=== PATIENT | female | born 2000 | race Caucasian/White ===

== ENCOUNTER 2023-05-31 13:35 | Emergency (ER) | payer OTHER, SELFPAY ==
[2023-05-31 13:40] VITALS: BP 116/67; PULSE 55; RESP 20; O2SAT 100; BMI 30.9
[2023-05-31] MEDS: 0.9 % SODIUM CHLORIDE 1,000 ML 999 ML IV (14:09)
[2023-05-31] MEDS: ONDANSETRON PF 4 MG/2 ML VIAL IV (14:09)
[2023-05-31] MEDS: HALOPERIDOL LACTATE 5 MG/ML VIAL IV (14:09)
[2023-05-31 14:15] LABS: Basophils Percent Auto 0.2 % (0.2-2.0); Eosinophils Percent Auto 0.1 % (0.9-7.0); Hematocrit 42.5 % (36.0-48.0); Hemoglobin 14.1 g/dL (12.0-16.0); Immature Granulocytes Abs Auto 0.04 10^3/uL (0.00-0.03); Immature Granulocytes Pct Auto 0.2 % (0.0-0.5); Lymphocytes Absolute Auto 0.6 10^3/uL (1.2-3.8); Lymphocytes Percent Auto 3.5 % (20.5-60.0); Mean Corpuscular HGB Conc 33.2 g/dL (29.9-35.2); Mean Corpuscular Hemoglobin 29.9 pg (26.7-34.0); Mean Platelet Volume 11.1 fL (9.5-13.5); Monocytes Absolute Auto 0.7 10^3/uL (0.3-0.8); Monocytes Percent Auto 4.2 % (1.7-12.0); Neutrophils Absolute Auto 14.8 10^3/uL (1.4-6.5); Neutrophils Percent Auto 91.8 % (43.0-75.0); Platelet Count 242 10^3/uL (150-450); Red Blood Count 4.72 10^6/uL (4.20-5.40); Red Cell Distribution Width 11.9 % (11.0-15.0); White Blood Count 16.1 10^3/uL (4.0-11.0)
--- NOTE | 2023-05-31 14:25 | ED_ITS ---
HPI - General Adult General Chief complaint: Nausea/Vomiting/Diarrhea Stated complaint: DIZZINESS/NAUSEA/VOMITING/CHEST PAIN Time Seen by Provider: 05/31/23 13:43 Source: patient Mode of arrival: Wheelchair Limitations: no limitations History of Present Illness HPI narrative: Patient complains of epigastric pain with nausea and vomiting for the last 3 days. She is unable to keep anything down despite trying to take sips of clear liquids at home. No urinary symptoms and no flank pain, No diarrhea. Patient denied but her LMP was about a month ago. Related Data Previous Rx's Medication Instructions Recorded ondansetron 4 mg disintegrating 4 mg PO Q6H PRN nausea and 05/31/23 tablet vomiting #20 tabs Allergies Allergy/AdvReac Type Severity Reaction Status Date / Time ibuprofen [From Motrin] AdvReac Severe Vomiting Verified 05/31/23 13:45 PFSH PFSH Social History Smoking status: Never smoker Exam Narrative Exam Narrative: Nurses notes and vital signs reviewed and patient is not hypoxic. afebrile General: Well-appearing and in no apparent distress. Skin: Warm, dry, no pallor noted. No rash to abdomen or flank. Eye: Pupils are equal, round and EOMI. No scleral icterus. Ears, Nose, Mouth, and Throat: Oral mucosa is dry Cardiovascular: Regular Rate and Rhythm without murmur, gallop or rub. Respiratory: No accessory muscle use or respiratory distress. Lungs are clear to auscultation, no wheezing, rales or rhonchi Back: No CVA tenderness Musculoskeletal: normal ROM GI: Abdomen is soft, non-distended. Normal bowel sounds. No masses appreciated. Epigastric tenderness to palpation. No RUQ, umbilical or lower abdominal tenderness to palpation. No rebound, guarding, or rigidity noted. Neurological: A&O x4. No cranial nerve dysfunction observed. No truncal ataxia. Moves all extremities. Sensation intact. Psychiatric: Cooperative and interactive. Normal mood and affect. Constitutional Vital Signs, click to edit/add: Last Vital Signs Pulse 63 05/31/23 14:48 Resp 18 05/31/23 14:48 BP 122/67 05/31/23 14:48 Pulse Ox 97 05/31/23 14:48 O2 Del Method Room Air 05/31/23 13:40 Course Vital Signs Vital signs: Vital Signs Pulse Rate 55 L 05/31/23 13:40 Respiratory Rate 20 10/07/23 13:40 Blood Pressure 116/67 05/31/23 13:40 Pulse Oximetry 100 05/31/23 13:40 Oxygen Delivery Method Room Air 05/31/23 13:40 Pulse Rate 63 05/31/23 14:48 Respiratory Rate 18 05/31/23 14:48 Blood Pressure 122/67 05/31/23 14:48 Pulse Oximetry 97 05/31/23 14:48 Oxygen Delivery Method Room Air 05/31/23 13:40 Medical Decision Making MDM Narrative Medical decision making narrative: Peripheral IV established and blood drawn and sent for testing. She was given NS IVF and IV Zofran. She was unable to initially give a urine sample. WBC 16k with left shift on CBC.m CMP notable for glucose 157 and total bilirubin 1.3. Direct bilirubin normal. Her qual HCG was positive and Quant was 9.0 UTox positive for THC/marijuana Patient felt better after ED treatment. We discussed all results including low Quant HCG - she will follow up with Dr Lopez. She was able to eat a popsicle and received tylenol for some pain she was having. She was discharged home with prescription for Zofran Lab Data Lab results reviewed: Yes I reviewed the patient's lab results Labs: Lab Results 05/31/23 05/31/23 Range/Units 14:08 14:45 WBC 16.1 H (4.0-11.0) 10^3/uL RBC 4.72 (4.20-5.40) 10^6/uL Hgb 14.1 (12.0-16.0) g/dL Hct 42.5 (36.0-48.0) % MCV 90.0 (81.0-99.0) fL MCH 29.9 (26.7-34.0) pg MCHC 33.2 (29.9-35.2) g/dL RDW 11.9 (11.0-15.0) % Plt Count 242 (150-450) 10^3/uL MPV 11.1 (9.5-13.5) fL Neut % (Auto) 91.8 H (43.0-75.0) % Lymph % (Auto) 3.5 L (20.5-60.0) % [place] % (Auto) 4.2 (1.7-12.0) % Eos % (Auto) 0.1 L (0.9-7.0) % Baso % (Auto) 0.2 (0.2-2.0) % Neut # (Auto) 14.8 H (1.4-6.5) 10^3/uL Lymph # (Auto) 0.6 L (1.2-3.8) 10^3/uL [place] # (Auto) 0.7 (0.3-0.8) 10^3/uL Eos # (Auto) 0.0 (0.0-0.7) 10^3/uL Baso # (Auto) 0.0 (0.0-0.1) 10^3/uL Abs Immat Gran (auto) 0.04 H (0.00-0.03) 10^3/uL Imm/Tot Granulo (auto) 0.2 (0.0-0.5) % Sodium 140 (136-145) mmol/L Potassium 3.5 (3.5-5.1) mmol/L Chloride 102 (98-107) mmol/L Carbon Dioxide 22.7 (21.0-32.0) mmol/L Anion Gap 18.8 BUN 18.0 (7.0-18.0) mg/dL Creatinine 0.92 (0.55-1.02) mg/dL Est GFR ( Amer) >60 (>=60) Est GFR (Non-Af Amer) >60 (>=60) BUN/Creatinine Ratio 19.6 Glucose 157 H (74-106) mg/dL Calcium 9.6 (8.5-10.1) mg/dL Total Bilirubin 1.3 H (0.2-1.0) mg/dL Direct Bilirubin 0.2 (0.0-0.2) mg/dL AST 15 (15-37) U/L ALT 24 (14-59) U/L Alkaline Phosphatase 47 (46-116) U/L Total Protein 7.9 (6.4-8.2) g/dL Albumin 4.2 (3.4-5.0) g/dL Globulin 3.7 g/dL Albumin/Globulin Ratio 1.1 Lipase 11.0 L (16.0-77.0) U/L Serum HCG, Qual Positive A (NEGATIVE) HCG, Quant 9 mIU/mL Urine Color Yellow (YELLOW) Urine Clarity Clear (CLEAR) Urine pH 7.5 (5.0-9.0) Ur Specific [place] 1.020 (1.005-1.025) Urine Protein 30 A (NEG/TRACE) mg/dL Urine Glucose (UA) Negative (NEGATIVE) mg/dL Urine Ketones >=80 A (NEGATIVE) mg/dL Urine Occult Blood Negative (NEGATIVE) Urine Nitrite Negative (NEGATIVE) Urine Bilirubin Small A (NEGATIVE) Urine Urobilinogen 0.2 (0.2-1.0) EU/dL Ur Leukocyte Esterase Trace A (NEGATIVE) Urine RBC 0-2 (0-2) #/HPF Urine WBC 0-2 A (NONE SEEN) #/HPF Ur Squamous Epith Cells Moderate A (NONE/RARE) #/LPF Urine Crystals None seen (None Seen) #/HPF Urine Bacteria Small A (NONE SEEN) #/HPF Urine Casts None seen (NONE SEEN) #/LPF Urine Mucus Trace A (NONE SEEN) Ur Culture Indicated? Yes Urine Opiates Screen Negative (NEGATIVE) Ur Buprenorphine Scrn Negative (NEGATIVE) Ur Oxycodone Screen Negative (NEGATIVE) Urine Methadone Screen Negative (NEGATIVE) Ur Propoxyphene Screen Negative (NEGATIVE) Ur Barbiturates Screen Negative (NEGATIVE) U Tricyclic Antidepress Negative (NEGATIVE) Ur Phencyclidine Scrn Negative (NEGATIVE) Ur Amphetamines Screen Negative (NEGATIVE) U Methamphetamines Scrn Negative (NEGATIVE) U Benzodiazepines Scrn Negative (NEGATIVE) Urine Cocaine Screen Negative (NEGATIVE) U Cannabinoids Screen Positive A (NEGATIVE) Discharge Plan Discharge Chief Complaint: Nausea/Vomiting/Diarrhea Clinical Impression: , Tetrahydrocannabinol (THC) use disorder, mild, abuse, Nausea & vomiting Patient Disposition: Home, Self-Care Time of Disposition Decision: 15:43 Prescriptions / Home Meds: New ondansetron 4 mg tablet,disintegrating 4 mg PO Q6H PRN (Reason: nausea and vomiting) Qty: 20 0RF Instructions: (ED), Acute Nausea and Vomiting (ED), Cannabis Use Disorder (ED) Stand Alone Forms: Portal Instructions Referrals: ARIANE HEDRICK [Primary Care Provider] - 1 week
[2023-05-31 14:29] LABS: Alanine Aminotransferase 24 U/L (14-59); Albumin Globulin Ratio 1.1; Albumin Level 4.2 g/dL (3.4-5.0); Alkaline Phosphatase 47 U/L (46-116); Anion Gap 18.8; Aspartate Amino Transferase 15 U/L (15-37); BUN Creatinine Ratio 19.6; Bilirubin Total 1.3 mg/dL (0.2-1.0); Calcium 9.6 mg/dL (8.5-10.1); Carbon Dioxide 22.7 mmol/L (21.0-32.0); Chloride 102 mmol/L (98-107); Estimated GFR (African America >60 (>=60); Estimated GFR (Non-African Ame >60 (>=60); Globulin 3.7 g/dL; Glucose 157 mg/dL (74-106); Potassium 3.5 mmol/L (3.5-5.1); Sodium 140 mmol/L (136-145); Total Protein 7.9 g/dL (6.4-8.2)
[2023-05-31 14:38] LABS: HCG Qualitative POSITIVE (NEGATIVE)
[2023-05-31 14:48] VITALS: BP 122/67; PULSE 63; RESP 18; O2SAT 97
[2023-05-31 14:55] LABS: HCG Quantitative 9 mIU/mL
[2023-05-31 15:08] LABS: Bilirubin Urine SMALL (NEGATIVE); Blood Urine NEGATIVE (NEGATIVE); Clarity Urine CLEAR (CLEAR); Color Urine YELLOW (YELLOW); Glucose Urine UA NEGATIVE (NEGATIVE); Ketones Urine >=80 mg/dL (NEGATIVE); Leukocyte Esterase Urine TRACE (NEGATIVE); Nitrite Urine NEGATIVE (NEGATIVE); Protein Urine 30 mg/dL (NEG/TRACE); Urobilinogen Urine 0.2 EU/dL (0.2-1.0); pH Urine 7.5 (5.0-9.0)
[2023-05-31 15:16] LABS: Urine Microscopic Indicated YES
[2023-05-31 15:20] LABS: Bacteria Urine SMALL #/HPF (NONE SEEN); Mucus Urine TRACE (NONE SEEN); RBC Urine 0-2 #/HPF (0-2); WBC Urine 0-2 #/HPF (NONE SEEN)
[2023-05-31 15:21] LABS: Cast Seen? NONE SEEN #/LPF (NONE SEEN); Crystals Seen? None Seen #/HPF (None Seen); Squamous Epithelial Cell Urine MODERATE #/LPF (NONE/RARE); Urine Culture Indicated YES
[2023-05-31] MEDS: ACETAMINOPHEN 500 MG TABLET 1000 MG PO (15:33)
[2023-05-31 15:35] LABS: Cannabinoid Screen Urine POSITIVE (NEGATIVE)
[2023-05-31 15:35] LABS: Bilirubin Direct 0.2 mg/dL (0.0-0.2)
[2023-05-31 15:36] LABS: Amphetamine Screen Urine NEGATIVE (NEGATIVE); Barbiturates Screen Urine NEGATIVE (NEGATIVE); Benzodiazepines Screen Urine NEGATIVE (NEGATIVE); Buprenorphine Screen Urine NEGATIVE (NEGATIVE); Cocaine Screen Urine NEGATIVE (NEGATIVE); Methadone Screen Urine NEGATIVE (NEGATIVE); Methamphetamines Screen Urine NEGATIVE (NEGATIVE); Opiate Screen Urine NEGATIVE (NEGATIVE); Oxycodone Screen Urine NEGATIVE (NEGATIVE); Phencyclidine Screen Urine NEGATIVE (NEGATIVE); Tricyclic Antidepressant Urine NEGATIVE (NEGATIVE)
== END 2023-05-31 16:00 | disposition home or self-care (01) ==
PROVIDERS: Emergency Provider Emergency Medicine; PCP Nurse Practitioner Family
DX: O26.899 Other specified pregnancy related conditions, unspecified trimester (principal); R11.2 Nausea with vomiting, unspecified; Z3A.00 Weeks of gestation of pregnancy not specified; O99.320 Drug use complicating pregnancy, unspecified trimester; F12.10 Cannabis abuse, uncomplicated
CPT/HCPCS: 36415; 80053; 80307; 81001; 82248; 83690; 84702; 84703; 85025; 87086; 96361; 96374; 96375; 99285

== ENCOUNTER 2023-07-10 13:30 | Outpatient (OUT) | payer OTHER, SELFPAY ==
--- NOTE | 2023-07-10 13:35 | US_ITS ---
[address] [address] Patient Name: FLORENCIA NEELY MRN: [id number] date: 2000 Sex: F Assigned Patient Location: US Current Patient Location: US Accession/Order Number: [id number] Exam Date: 07/10/2023 13:36 Report Date: 07/10/2023 15:27 At the request of: BELKIS BRAND Procedure: US OB transvaginal EXAMINATION: US OB transvaginal HISTORY: MISSED MENSES COMPARISON: No relevant comparison available. FINDINGS: Paz intrauterine gestation Gestational sac: 4.0 cm, 9 weeks 2 days CRL: 2.3 cm, 9 weeks 0 days Yolk sac: 4.8 mm Heart rate: 161 Cervix: Closed, 5.1 cm The uterus is normal, anteverted, anteflexed The ovaries are normal in appearance Clinical age: 10 weeks 0 days Clinical AGATHA: 02/05/2024 Ultrasound age: 9 weeks 0 days Ultrasound AGATHA: 02/12/2024 US/US OB transvaginal IMPRESSION: Viable paz intrauterine gestation measuring 9 weeks 0 days Electronically authenticated by: LOUISE MOHAMUD Date: 07/10/2023 15:27
== END 2023-07-10 13:31 | disposition home or self-care (01) ==
LOC: US 13:31
PROVIDERS: PCP Nurse Practitioner Family; Visit Provider Obstetrics & Gynecology
DX: Z34.91 Encounter for supervision of normal pregnancy, unspecified, first trimester (principal); N92.6 Irregular menstruation, unspecified; Z3A.09 9 weeks gestation of pregnancy
CPT/HCPCS: 76817

== ENCOUNTER 2023-07-21 16:32 | Outpatient (OUT) | payer OTHER, SELFPAY ==
[2023-07-21 16:58] LABS: Basophils Percent Auto 0.3 % (0.2-2.0); Eosinophils Absolute Auto 0.1 10^3/uL (0.0-0.7); Eosinophils Percent Auto 0.8 % (0.9-7.0); Hematocrit 40.9 % (36.0-48.0); Hemoglobin 14.1 g/dL (12.0-16.0); Immature Granulocytes Abs Auto 0.05 10^3/uL (0.00-0.03); Immature Granulocytes Pct Auto 0.4 % (0.0-0.5); Lymphocytes Percent Auto 16.5 % (20.5-60.0); Mean Corpuscular HGB Conc 34.5 g/dL (29.9-35.2); Mean Corpuscular Hemoglobin 30.1 pg (26.7-34.0); Mean Corpuscular Volume 87.2 fL (81.0-99.0); Mean Platelet Volume 11.2 fL (9.5-13.5); Monocytes Absolute Auto 0.5 10^3/uL (0.3-0.8); Monocytes Percent Auto 4.5 % (1.7-12.0); Neutrophils Absolute Auto 9.2 10^3/uL (1.4-6.5); Neutrophils Percent Auto 77.5 % (43.0-75.0); Platelet Count 237 10^3/uL (150-450); Red Blood Count 4.69 10^6/uL (4.20-5.40); Red Cell Distribution Width 12.2 % (11.0-15.0); White Blood Count 11.9 10^3/uL (4.0-11.0)
[2023-07-21 17:40] LABS: Estimated Average Glucose 97 mg/dL
[2023-07-21 17:54] LABS: Thyroid Stimulating Hormone 1.251 uIU/mL (0.358-3.740)
[2023-07-23 06:09] LABS: Rubella Antibodies, IgG 7.39 index (Immune >0.99)
[2023-07-23 06:44] LABS: BOX Test Sent Out Y
[2023-07-23 07:08] LABS: HBsAg Screen Negative (Negative); HIV Ab/p24 Ag Screen Non Reactive (Non Reactive)
[2023-07-23 08:12] LABS: HCV Ab Non Reactive (Non Reactive)
[2023-07-23 13:09] LABS: Rapid Plasma Reagin, Quant Non Reactive titer (NonRea<1:1)
== END 2023-07-21 16:33 | disposition home or self-care (01) ==
LOC: LAB 16:34
PROVIDERS: PCP Nurse Practitioner Family; Visit Provider Obstetrics & Gynecology
DX: N92.6 Irregular menstruation, unspecified (principal); Z36.0 Encounter for antenatal screening for chromosomal anomalies
CPT/HCPCS: 36415; 83036; 84443; 85025; 86592; 86762; 86803; 86850; 86900; 86901; 87086; 87340; 87389

== ENCOUNTER 2023-09-22 21:51 | Outpatient (REF) | payer OTHER, SELFPAY ==
--- OUTSIDE RECORDS SUMMARY | 2023-09-22 21:55 | XMS_ITS | CCD ---
Author Name Unknown Address [id number] [place] [address] Organization [facility] Care Team Providers Care Broiler Supervisor Name Role Phone JOSE ., LITA Admitting Unavailable JOSE ., LITA Attending Unavailable RYLEY, ARIANE Primary Care Unavailable JOSE ., LITA Consulting Unavailable ARIANE HEDRICK Admitting Unavailable ARIANE HEDRICK Attending Unavailable RYLEY, ARIANE Primary Care Unavailable ARIANE HEDRICK Consulting Unavailable SUNDAY ., DR TAMAYO Admitting Unavailable SUNDAY ., DR TAMAYO Attending Unavailable RYLEY, ARIANE Primary Care Unavailable SUNDAY ., DR TAMAYO Consulting Unavailable RYLEY, ARIANE Primary Care Unavailable PAY ., DR NELSON Admitting Unavailable PAY ., DR NELSON Attending Unavailable PAY ., DR NELSON Consulting Unavailable NIRAJ BEACH Attending Unavailable SNUDAYBELKIS Attending Unavailable Allergies Allergy Classification Reported Allergen(s) Allergy Type Date of Onset Reaction(s) Facility (1 source) Ibuprofen Drug Allergy 01-15-2016 [facility] Repository Problems Active Problems Problem Classification Problem Date Documented Date Episodic/Chronic Administrative/social admission (4 sources) Encounter for other administrative examinations; Translations: [ENCOUNTER OTH ADMIN EXAMINATIONS] Onset: 10-30-2022 Episodic Headache; including migraine (4 sources) Headache; including migraine; Translations: [HEADACHE UNSPECIFIED] Onset: 06-21-2022 Unclassified (1 source) CONTACT W/AND (SUSP) EXPOS COVID-19; Translations: [CONTACT W/AND (SUSP) EXPOS COVID-19] Onset: 01-08-2022 Past or Other Problems Problem Classification Problem Date Documented Date Episodic/Chronic Abdominal pain (1 source) Unspecified abdominal pain; Translations: [UNSPECIFIED ABDOMINAL PAIN] Onset: 06-25-2022 Episodic Fluid and electrolyte disorders (1 source) Dehydration; Translations: [DEHYDRATION] Onset: 01-08-2022 Episodic Immunizations and screening for infectious disease (1 source) Encounter for screening for human papillomavirus (HPV); Translations: [ENC SCREENING HUMAN PAPILLOMAVIRUS] Onset: 04-09-2022 Episodic Nausea and vomiting (4 sources) Nausea with vomiting, unspecified; Translations: [NAUSEA WITH VOMITING UNSPECIFIED] Onset: 01-06-2022 Episodic Other screening for suspected conditions (not mental disorders or infectious disease) (4 sources) Encounter for screening for malignant neoplasm of cervix; Translations: [ENC SCREENING MALIG NEOPLASM CERV] Onset: 04-08-2022 Episodic Results Test Name Value Interpretation Reference Range Facility COMPLIANCE DRUG SCREENon PDF . [facility] Comment on above: Performed By: #### U RCX #### [facility] [address] [place] [address] Dr. Tisha Carr Summary FINAL [facility] Comment on above: Result Comment: TOXASSURE COMP DRUG ANALYSIS,UR Test Result Flag Units Drug Present not Declared for Prescription Verification Carboxy-THC 117 UNEXPECTED ng/mg creat Carboxy-THC is a metabolite of tetrahydrocannabinol (THC). Source of THC is most commonly herbal marijuana or marijuana-based products, but THC is also present in a scheduled prescription medication. Trace amounts of THC can be present in hemp and cannabidiol (CBD) products. This test is not intended to distinguish between utiqo-7-nvwratrrdirpxicowfuy, the predominant form of THC in most herbal or marijuana-based products, and djqbt-5-pvygrtgetgiscpryjwpj. Methylphenidate PRESENT UNEXPECTED Ritalinic Acid PRESENT UNEXPECTED Source of methylphenidate is a scheduled prescription medication. Ritalinic acid is an expected metabolite of methylphenidate. Diphenhydramine PRESENT UNEXPECTED Drug Absent but Declared for Prescription Verification Amphetamine Not Detected UNEXPECTED ng/mg creat Test Result Flag Units Ref Range Creatinine 209 mg/dL >=20 Declared Medications: The flagging and interpretation on this report are based on the following declared medications. Unexpected results may arise from inaccuracies in the declared medications. Note: The testing scope of this panel includes these medications: Amphetamine (Adderall) For clinical consultation, please call . Performed By: #### U RCX #### [facility] [address] [place] [id number] [address] Tisha Carr URIC ACID RAND URINEon 10-31 Uric Acid, Urine 67.3 mg/dL Normal Not Estab. [facility] Comment on above: Performed By: #### U RCX #### [facility] [address] [place] [address] Dr. Tisha Carr DRUG SCREEN RAPID (URINE)on 10-30-2022 AMP Negative Normal NEGATIVE [facility] Comment on above: Performed By: #### U RCX #### [facility] [address] [place] [address] Dr. Tisha Carr BAR Negative Normal NEGATIVE [facility] Comment on above: Performed By: #### U RCX #### [facility] [address] [place] [address] Dr. Tisha Carr BUP Negative Normal NEGATIVE [facility] Comment on above: Performed By: #### U RCX #### [facility] [address] [place] [address] Dr. Tisha Carr BZO Negative Normal NEGATIVE [facility] Comment on above: Performed By: #### U RCX #### [facility] [address] [place] [address] Dr. Tisha Carr SOCRATES Negative Normal NEGATIVE [facility] Comment on above: Performed By: #### U RCX #### [facility] [address] [place] [address] Dr. Tisha Carr CUT-OFFS SEE BELOW Normal [facility] Comment on above: Result Comment: AMP (Amphetamine): 500ng/mL, BAR (Barbituates): 200 ng/mL, BZO (Benzodiazepines): 150 ng/mL, BUP (Buprenorphine): 10 ng/mL, SOCRATES (Cocaine): 150 ng/mL, mAMP (Methamphetamine): 500 ng/mL, MTD (Methadone): 200 ng/mL, OPI (Opiates): 100 ng/mL, OXY (Oxycodone): 100 ng/mL, PCP (Phencyclidine): 25 ng/mL, PPX (Propoxyphene): 300 ng/mL, THC (Cannabinoids): 50 ng/mL, TCA (Trycyclic Antidepressants): 300 ng/mL Performed By: #### U RCX #### [facility] [address] [place] [address] Dr. Tisha Carr DRUG CUT HEADER DRUG CLASS TEST SYST EM CUT-OFF CONCENTRATIONS ARE FOLLOWS: Normal [facility] Comment on above: Performed By: #### U RCX #### [facility] [address] [place] [address] Dr. Tisha Carr mAMP Negative Normal NEGATIVE [facility] Comment on above: Performed By: #### U RCX #### [facility] [address] [place] [address] Dr. Tisha Carr MTD Negative Normal NEGATIVE [facility] Comment on above: Performed By: #### U RCX #### [facility] [address] [place] [address] Dr. Tisha Carr OPI Negative Normal NEGATIVE [facility] Comment on above: Performed By: #### U RCX #### [facility] [address] [place] [address] Dr. Tisha Carr OXY Negative Normal NEGATIVE [facility] Comment on above: Performed By: #### U RCX #### [facility] [address] [place] [address] Dr. Tisha Carr PCP Negative Normal NEGATIVE [facility] Comment on above: Performed By: #### U RCX #### [facility] [address] [place] [address] Dr. Tisha Carr PPX Negative Normal NEGATIVE [facility] Comment on above: Performed By: #### U RCX #### [facility] [address] [place] [address] Dr. Tisha Carr TCA Negative Normal NEGATIVE [facility] Comment on above: Performed By: #### U RCX #### [facility] [address] [place] [address] Dr. Tisha Carr THC Positive Abnormal NEGATIVE [facility] Comment on above: Performed By: #### U RCX #### [facility] [address] [place] [address] Dr. Tisha Carr CBC AUTO DIFFon 06-21-2022 BASO # 0.0 103/ul Normal 0.0-0.1 [facility] Comment on above: Performed By: #### U RCX #### [facility] [address] [place] [address] Dr. Tisha Carr Basophils/100 WBC (Bld) 0.2 % Normal 0.2-2.0 [facility] Comment on above: Performed By: #### U RCX #### [facility] [address] [place] [address] Dr. Tisha Carr EO # 0.0 103/ul Normal 0.0-0.7 [facility] Comment on above: Performed By: #### U RCX #### [facility] [address] [place] [address] Dr. Tisha Carr Eosinophils/100 WBC (Bld) 0.2 % Critically low 0.9-7.0 [facility] Comment on above: Performed By: #### U RCX #### [facility] [address] [place] [address] Dr. Tisha Carr Erythrocyte distribution width (RBC) [Ratio] 12.3 % Normal 11.0-15.0 [facility] Comment on above: Performed By: #### U RCX #### [facility] [address] [place] [address] Dr. Tisha Carr Hematocrit (Bld) [Volume fraction] 43.1 % Normal 36.0-48.0 [facility] Comment on above: Performed By: #### U RCX #### [facility] [address] [place] [address] Dr. Tisha Carr Hemoglobin (Bld) [Mass/Vol] 15.1 g/dL Normal 12.0-16.0 [facility] Comment on above: Performed By: #### U RCX #### [facility] [address] [place] [address] Dr. Tisha Carr IG # 0.06 10e3/ul Critically high 0.00-0.03 [facility] Comment on above: Performed By: #### U RCX #### [facility] [address] [place] [address] Dr. Tisha Carr IG % 0.5 % Normal 0.0-0.5 [facility] Comment on above: Performed By: #### U RCX #### [facility] [address] [place] [address] Dr. Tisha Carr LYMPH # 1.0 103/ul Critically low 1.2-3.8 [facility] Comment on above: Performed By: #### U RCX #### [facility] [address] [place] [address] Dr. Tisha Carr Lymphocytes/100 WBC (Bld) 8.2 % Critically low 20.5-60.0 [facility] Comment on above: Performed By: #### U RCX #### [facility] [address] [place] [address] Dr. Tisha Carr MANUAL DIFF REQ NO Normal [facility] Comment on above: Performed By: #### U RCX #### [facility] [address] [place] [address] Dr. Tisha Carr MCH (RBC) [Entitic mass] 30.3 pg Normal 26.7-34.0 [facility] Comment on above: Performed By: #### U RCX #### [facility] [address] [place] [address] Dr. Tisha Carr MCHC (RBC) [Mass/Vol] 35.0 g/dL Normal 29.9-35.2 [facility] Comment on above: Performed By: #### U RCX #### [facility] [address] [place] [address] Dr. Tisha Carr MCV (RBC) [Entitic vol] 86.4 fL Normal 81.0-99.0 [facility] Comment on above: Performed By: #### U RCX #### [facility] [address] [place] [address] Dr. Tisha Carr MONO # 0.8 103/ul Normal 0.3-0.8 [facility] Comment on above: Performed By: #### U RCX #### [facility] [address] [place] [address] Dr. Tisha Carr Monocytes/100 WBC (Bld) 6.0 % Normal 1.7-12.0 [facility] Comment on above: Performed By: #### U RCX #### [facility] [address] [place] [address] Dr. Tisha Carr NEUT # 10.8 103/ul Critically high 1.4-6.5 [facility] Comment on above: Performed By: #### U RCX #### [facility] [address] [place] [address] Dr. Tisha Carr Neutrophils/100 WBC (Bld) 84.9 % Critically high 43.0-75.0 [facility] Comment on above: Performed By: #### U RCX #### [facility] [address] [place] [address] Dr. Tisha Carr Platelet mean volume (Bld) [Entitic vol] 10.8 fL Normal 9.5-13.5 [facility] Comment on above: Performed By: #### U RCX #### [facility] [address] [place] [address] Dr. Tisha Carr PLT 237 103/ul Normal 150-450 [facility] Comment on above: Performed By: #### U RCX #### [facility] [address] [place] [address] Dr. Tisha Carr RBC 4.99 106/ul Normal 4.20-5.40 [facility] Comment on above: Performed By: #### U RCX #### [facility] [address] [place] [address] Dr. Tisha Carr WBC 12.7 103/ul Critically high 4.0-11.0 [facility] Comment on above: Performed By: #### U RCX #### [facility] [address] [place] [address] Dr. Tisha Carr CRPon 06-21-2022 CRP 10.0 mg/dL Critically high <=1.0 [facility] Comment on above: Performed By: #### C RP, CMP, LIPA #### [facility] [address] [place] [address] Dr. Tisha Carr ER URINE PROFILEon Bilirubin Ql (U) SMALL Abnormal NEGATIVE [facility] Comment on above: Performed By: #### E RUR, UMICRO, PREGU #### [facility] [address] [place] [address] Dr. Tisha Carr Clarity (U) CLEAR Normal CLEAR [facility] Comment on above: Performed By: #### E RUR, UMICRO, PREGU #### [facility] [address] [address] [address] Tisha Carr Color (U) YELLOW Normal YELLOW [facility] Comment on above: Performed By: #### E RUR, UMICRO, PREGU #### [facility] [address] [address] [address] Tisha Carr ERUREJI A micrscopic examina tion will be performed if indicated. Normal [facility] Comment on above: Performed By: #### E RUR, UMICRO, PREGU #### [facility] [address] [place] [address] Dr. Tisha Carr Glucose Ql (U) Negative Normal NEGATIVE [facility] Comment on above: Performed By: #### E RUR, UMICRO, PREGU #### [facility] [address] [address] [address] Tisha Carr Hemoglobin Ql (U) MODERATE Abnormal NEGATIVE [facility] Comment on above: Performed By: #### E RUR, UMICRO, PREGU #### [facility] [address] [address] [address] Tisha Carr Ketones Ql (U) 80 mg/dl Abnormal NEGATIVE [facility] Comment on above: Performed By: #### E RUR, UMICRO, PREGU #### [facility] [address] [address] [address] Tisha Carr LEUKOCYTES Negative Normal NEGATIVE [facility] Comment on above: Performed By: #### E RUR, UMICRO, PREGU #### [facility] [address] [address] [address] Tisha Carr Nitrite Ql (U) Negative Normal NEGATIVE [facility] Comment on above: Performed By: #### E RUR, UMICRO, PREGU #### [facility] [address] [place] [address] Dr. Tisha Carr pH (U) 6.0 [pH] Normal 5-9 [facility] Comment on above: Performed By: #### E RUR UMICRO, PREGU #### [facility] [address] [address] [address] Tisha Carr SPEC GRAVITY 1.025 Normal 1.005-<=1.025 [facility] Comment on above: Performed By: #### E RUR, UMICRO, PREGU #### [facility] [address] [place] [address] Dr. Tisha Carr UA PROTEIN TRACE Normal NEGATIVE/ TRACE [facility] Comment on above: Performed By: #### E RURLEIGHICELLE, PREGU #### [facility] [address] [place] [address] Dr. Tisha Carr UR MICRO IND INDICATED Normal [facility] Comment on above: Performed By: #### E RUR UMICRO, PREGU #### [facility] [address] [place] [address] Dr. Tisha Carr Urobilinogen Qn (U) 1.0 {Alma'U}/dL Normal 0.2 - 1.0 [facility] Comment on above: Performed By: #### YULY BRYANT, PREGU #### [facility] [address] [place] [address] Dr. Tisha Carr LACTATE/LACTIC ACIDon 2021 Lactate [Moles/Vol] 1.0 mmol/L Normal 0.4-1.9 [facility] Comment on above: Performed By: #### U RCX #### [facility] [address] [place] [address] Dr. Tisha Carr LIPASEon 06-21-2022 Lipase [Catalytic activity/Vol] 41.0 U/L Critically low 73.0-393.0 [facility] Comment on above: Performed By: #### C RP, CMP, LIPA #### [facility] [address] [place] [address] Dr. Tisha Carr URon 06-21-2022 , QUAL Negative Normal NEGATIVE [facility] Comment on above: Performed By: #### E RUR UMICRO, PREGU #### [facility] [address] [address] [address] Tisha Carr PROF 14(COMP METB)on 022 Albumin [Mass/Vol] 4.0 g/dL Normal 3.4-5.0 [facility] Comment on above: Performed By: #### C RP, CMP, LIPA #### [facility] [address] [address] [address] Tisha Carr Albumin/Globulin [Mass ratio] 1.0 {ratio} Normal [facility] Comment on above: Performed By: #### C RP, CMP, LIPA #### [facility] [address] [address] [address] Tisha Carr ALP [Catalytic activity/Vol] 74 U/L Normal 46-116 [facility] Comment on above: Performed By: #### C RP, CMP, LIPA #### [facility] [address] [address] [address] Tisha Carr ALT [Catalytic activity/Vol] 33 U/L Normal 14-59 [facility] Comment on above: Performed By: #### C RP, CMP, LIPA #### [facility] [address] [address] [address] Tisha Carr Anion gap [Moles/Vol] 15.8 mmol/L Normal [facility] Comment on above: Performed By: #### C RP, CMP, LIPA #### [facility] [address] [address] [address] Tisha Carr AST [Catalytic activity/Vol] 17 U/L Normal 15-37 [facility] Comment on above: Performed By: #### C RP, CMP, LIPA #### [facility] [address] [address] [address] Tisha Carr Bilirubin [Mass/Vol] 1.3 mg/dL Critically high 0.2-1.0 [facility] Comment on above: Performed By: #### C RP, CMP, LIPA #### [facility] [address] [address] [address] Tisha Carr Calcium [Mass/Vol] 9.2 mg/dL Normal 8.5-10.1 [facility] Comment on above: Performed By: #### C RP, CMP, LIPA #### [facility] [address] [place] [address] Dr. Tihsa Carr Chloride [Moles/Vol] 102 mmol/L Normal 98-107 [facility] Comment on above: Performed By: #### C RP, CMP, LIPA #### [facility] [address] [place] [address] Dr. Tisha Carr CO2 [Moles/Vol] 22.7 mmol/L Normal 21.0-32.0 [facility] Comment on above: Performed By: #### C RP, CMP, LIPA #### [facility] [address] [place] [address] Dr. Tisha Carr Creatinine [Mass/Vol] 0.70 mg/dL Normal 0.55-1.02 [facility] Comment on above: Performed By: #### C RP, CMP, LIPA #### [facility] [address] [place] [address] Dr. Tisha Carr EGFR-AF TRISTANIAN >60 Normal >=60 [facility] Comment on above: Performed By: #### C RP, CMP, LIPA #### [facility] [address] [place] [address] Dr. Tisha Carr EGFR-NON AF TRISTANIAN >60 Normal >=60 [facility] Comment on above: Performed By: #### C RP, CMP, LIPA #### [facility] [address] [place] [address] Dr. Tisha Carr Globulin (S) [Mass/Vol] 4.2 g/dL Normal [facility] Comment on above: Performed By: #### C RP, CMP, LIPA #### [facility] [address] [place] [address] Dr. Tisha Carr Glucose [Mass/Vol] 93 mg/dL Normal 74-106 [facility] Comment on above: Performed By: #### C RP, CMP, LIPA #### [facility] [address] [place] [address] Dr. Tisha Carr Potassium [Moles/Vol] 3.5 mmol/L Normal 3.5-5.1 [facility] Comment on above: Performed By: #### C RP, CMP, LIPA #### [facility] [address] [place] [address] Dr. Tisha Carr Protein [Mass/Vol] 8.2 g/dL Normal 6.4-8.2 [facility] Comment on above: Performed By: #### C RP, CMP, LIPA #### [facility] [address] [place] [address] Dr. Tisha Carr Sodium [Moles/Vol] 137 mmol/L Normal 136-145 [facility] Comment on above: Performed By: #### C RP, CMP, LIPA #### [facility] [address] [place] [address] Dr. Tisha Carr Urea nitrogen [Mass/Vol] 16.0 mg/dL Normal 7.0-18.0 [facility] Comment on above: Performed By: #### C RP, CMP, LIPA #### [facility] [address] [place] [address] Dr. Tisha Carr Urea nitrogen/Creatini ne [Mass ratio] 22.9 mg/mg Normal [facility] Comment on above: Performed By: #### C RP, CMP, LIPA #### [facility] [address] [place] [address] Dr. Tisha Carr URINE MICROSCOPIC ONLYon BACTERIA TRACE Abnormal NONE SEEN [facility] Comment on above: Performed By: #### YULY BRYANT, PREGU #### [facility] [address] [place] [address] Dr. Tisha Carr Bacteria identified Cx Nom (U) NOT INDICATED Normal [facility] Comment on above: Performed By: #### YULY BRYANT PREGU #### [facility] [address] [place] [address] Dr. Tisha Carr CAST NONE SEEN Normal NONE SEEN [facility] Comment on above: Performed By: #### YULY BRYANT, PREGU #### [facility] [address] [address] [address] Tisha Carr Crystals LM Nom (Urine sed) NONE SEEN Normal NONE SEEN [facility] Comment on above: Performed By: #### YULY BRYANT, PREGU #### [facility] [address] [address] [address] Tisha Carr Epithelial cells LM Ql (Urine sed) MODERATE Abnormal NONE SEEN /RARE [facility] Comment on above: Performed By: #### YULY BRYANT, PREGU #### [facility] [address] [address] [address] Tisha Carr MUCOUS MODERATE Abnormal NONE SEEN [facility] Comment on above: Performed By: #### YULY BRYANT, PREGU #### [facility] [address] [place] [address] Dr. Tisha Carr RBC 0-2 Normal 0-2 [facility] Comment on above: Performed By: #### YULY BRYANT, PREGU #### [facility] [address] [place] [address] Dr. Tisha Carr WBC 0-2 Abnormal NONE SEEN [facility] Comment on above: Performed By: #### YULY BRYANT, PREGU #### [facility] [address] [place] [address] Dr. Tisha Carr PAP ACOG PANEL 2: 21 to 29on 04-11-2022 . . Normal [facility] Comment on above: Performed By: #### U RCX #### [facility] [address] [place] [address] Dr. Tisha Carr Age Gdln ACOG Testing 21-29 Normal [facility] Comment on above: Performed By: #### U RCX #### [facility] [address] [place] [address] Dr. Tisha Carr DIAGNOSIS: Comment Normal [facility] Comment on above: Result Comment: NEGA TIVE FOR INTRAEPITHELIAL LESION OR MALIGNANCY. FUNGAL ORGANISMS MORPHOLOGICALLY CONSISTENT WITH SHREEE SPECIES ARE PRESENT. Performed By: #### U RCX #### [facility] [address] [place] [address] Dr. Tisha Carr Methodology: Comment [facility] Comment on above: Result Comment: This liquid based ThinPrep(R) pap test was screened with the use of an image guided system. Performed By: #### U RCX #### [facility] [address] [place] [address] Dr. Tisha Carr Note: Comment Normal [facility] Comment on above: Result Comment: The Pap smear is a screening test designed to aid in the detection of premalignant and malignant conditions of the uterine cervix. It is not a diagnostic procedure and should not be used as the sole means of detecting cervical cancer. Both false-positive and false-negative reports do occur. . Performed By: #### U RCX #### [facility] [address] [place] [address] Dr. Tisha Carr Performed by: Comment Normal [facility] Comment on above: Result Comment: Caleb Schaeffer, Reciprocating Drill Operator (ASCP) Performed By: #### U RCX #### [facility] [address] [place] [address] Dr. Tisha Carr Reflex Criteria: Comment [facility] Comment on above: Result Comment: The HPV DNA reflex criteria were not met with this specimen result therefore, no HPV testing was performed. . Performed By: #### U RCX #### [facility] [address] [place] [address] Dr. Tisha Carr Specimen adequacy: Comment [facility] Comment on above: Result Comment: Sati sfactory for evaluation. Endocervical and/or squamous metaplastic cells (endocervical component) are present. Performed By: #### U RCX #### [facility] [address] [place] [address] Dr. Tisha Carr CULTURE URINEon 01-08-2022 CULTURE URINE Isolate 1 Escherichia coli 40,000 cfu/mL of ORGANISM 1 Escherichia coli ANTIBIOTIC M.I.C RX STATUS Ampicillin >=32 R F Ampicillin/Sulbactam >=32 R F Piperacillin/Tazobactam <=4 S F Cefazolin <=4 S F Ceftazidime <=1 S F Ceftriaxone <=1 S F Ertapenem <=0.5 S F Imipenem <=0.25 S F Amikacin <=2 S F Gentamicin <=1 S F Tobramycin <=1 S F Ciprofloxacin <=0.25 S F Levofloxacin <=0.12 S F Nitrofurantoin <=16 S F Trimethoprim/Sulfamethoxa zole <=20 S F Normal [facility] Comment on above: Performed By: #### U RCX #### [facility] [address] [place] [address] Dr. Tisha Carr Covid-19 PCR ([facility])on 12-23 SARS-CoV-2 (COVID-19) RNA OC+probe Ql (Unsp spec) Not detected Normal NOT DETECTED [facility] Comment on above: Result Comment: This test is not yet approved or cleared by the [place] FDA. When there are no FDA-approved or cleared tests available, and other criteria are met, FDA can make tests available under an emergency access mechanism called an Emergency Use Authorization (EUA). The EUA for this test is supported by the Supervisor Offset Plate Preparation of Health and Human Service's (HHS's) declaration that circumstances exist to justify the emergency use of in vitro diagnostics for the detection and/or diagnosis of the virus that causes COVID-19. This EUA will remain in effect (meaning this test can be used) for the duration of the COVID-19 declaration justifying emergency of IVDs, unless it is terminated or revoked by FDA (after which the test may no longer be used). When diagnostic testing is negative, the possibility of a false negative should be considered in the context of a patient's recent exposures and the presence of clinical signs and symptoms consistent with SARS-CoV-2. Performed By: #### C VDTBH #### [facility] [address], [place] [address] Dr. Tisha Carr ER URINE PROFILEon 2 Bilirubin Ql (U) MODERATE Abnormal NEGATIVE [facility] Comment on above: Performed By: #### E YULY CUMMINS PREGU #### [facility] [address], [place] [address] Dr. Tisha Carr Clarity (U) CLEAR Normal CLEAR [facility] Comment on above: Performed By: #### E RUR, UMICRO, PREGU #### [facility] [address] [place] [address] [address] Tisha Carr Color (U) DK. YELLOW Normal YELLOW [facility] Comment on above: Performed By: #### E RUR, UMICRO, PREGU #### [facility] [address] [address] [address] Tisha Carr ERUREJI A micrscopic examina tion will be performed if indicated. Normal [facility] Comment on above: Performed By: #### E RUR, UMICRO, PREGU #### [facility] [address] [address] [address] Tisha Carr Glucose Ql (U) Negative Normal NEGATIVE [facility] Comment on above: Performed By: #### E RUR, UMICRO, PREGU #### [facility] [address] [address] [address] Tisha Carr Hemoglobin Ql (U) Negative Normal NEGATIVE [facility] Comment on above: Performed By: #### E RUR, UMICRO, PREGU #### [facility] [address] [address] [address] Tisha Carr Ketones Ql (U) >=80 Abnormal NEGATIVE [facility] Comment on above: Performed By: #### E RUR, UMICRO, PREGU #### [facility] [address] [address] [address] Tisha Carr LEUKOCYTES TRACE Abnormal NEGATIVE [facility] Comment on above: Performed By: #### E RUR, UMICRO, PREGU #### [facility] [address] [address] [address] Tisha Carr Nitrite Ql (U) Negative Normal NEGATIVE [facility] Comment on above: Performed By: #### E RUR, UMICRO, PREGU #### [facility] [address] [address] [address] Tisha Carr pH (U) 6.0 [pH] Normal 5-9 [facility] Comment on above: Performed By: #### E RUR, UMICRO, PREGU #### [facility] [address] [place] [address] Dr. Tisha Carr Protein (U) [Mass/Vol] 100 mg/dL Abnormal NEGATIVE/ TRACE [facility] Comment on above: Performed By: #### E YULY CUMMINS, PREGU #### [facility] [address] [place] [address] Dr. Tisha Carr SPEC GRAVITY 1.025 Normal 1.005-<=1.025 [facility] Comment on above: Performed By: #### YULY BRYANT, PREGU #### [facility] [address] [place] [address] Dr. Tisha Carr UR MICRO IND INDICATED Normal [facility] Comment on above: Performed By: #### YULY BRYANT, PREGU #### [facility] [address] [place] [address] Dr. Tisha Carr Urobilinogen Qn (U) 1.0 {Alma'U}/dL Normal 0.2 - 1.0 [facility] Comment on above: Performed By: #### YULY BRYANT PREGU #### [facility] [address] [place] [address] Dr. Tisha Carr INFLUENZA A AND B AGon 01-06 INFLUANEGH SEE BELOW Normal [facility] Comment on above: Result Comment: Nega tive for Flu A protein angiten. Infection due to Flu A cannot be ruled out. Flu A angiten in the sample may be below the detection limit of the test. Performed By: #### U RCX #### [facility] [address] [place] [address] Dr. Tisha Carr INFLUBNEGH SEE BELOW Normal [facility] Comment on above: Result Comment: Nega tive for Flu B protein antigen. Infection due to Flu B cannot be ruled out. Flu B antigen in the sample may be below the detection limit of the test. Performed By: #### U RCX #### [facility] [address] [place] [address] Dr. Tisha Carr INFLUENZA A AG Negative Normal NEGATIVE SEE COMMENT [facility] Comment on above: Performed By: #### U RCX #### [facility] [address] [address] [address] Tisha Carr INFLUENZA B AG Negative Normal NEGATIVE SEE COMMENT [facility] Comment on above: Performed By: #### U RCX #### [facility] [address] [address] [address] Tisha Carr INTERNAL CONTROLS Within Normal Limits Normal Wi thin Normal Limits [facility] Comment on above: Performed By: #### U RCX #### [facility] [address] [address] [address] Tisha Carr URon 01-06-2022 , QUAL Negative Normal NEGATIVE [facility] Comment on above: Performed By: #### E RUR, UMICRO, PREGU #### [facility] [address] [address] [address] Tisha Carr URINE MICROSCOPIC ONLYon BACTERIA SMALL Abnormal NONE SEEN [facility] Comment on above: Performed By: #### U RCX #### [facility] [address] [address] [address] Tisha Carr Bacteria identified Cx Nom (U) INDICATED Normal [facility] Comment on above: Performed By: #### U RCX #### [facility] [address] [address] [address] Tisha Carr CAST NONE SEEN Normal NONE SEEN [facility] Comment on above: Performed By: #### U RCX #### [facility] [address] [address] [address] Tisha Carr Crystals LM Nom (Urine sed) NONE SEEN Normal NONE SEEN [facility] Comment on above: Performed By: #### U RCX #### [facility] [address] [address] [address] Tisha Carr Epithelial cells LM Ql (Urine sed) MANY Abnormal NONE SEEN /RARE [facility] Comment on above: Performed By: #### U RCX #### [facility] [address] [address] [address] Tisha Carr MUCOUS LARGE Abnormal NONE SEEN [facility] Comment on above: Performed By: #### U RCX #### [facility] [address], [place] [address] Dr. Tisha Carr RBC NONE SEEN Abnormal 0-2 [facility] Comment on above: Performed By: #### U RCX #### [facility] [address], [place] [address] Dr. Tisha Carr WBC 5-10 Abnormal NONE SEEN [facility] Comment on above: Performed By: #### U RCX #### [facility] [address], [place] [address] Dr. Tisha Carr Encounters Encounter Date Encounter Type Care Provider Facility Start: 08-21-2023 End: 08-21-2023 ambulatory NIRAJ BEACH Not Available Start: 07-23-2023 End: 07-23-2023 ambulatory BELKIS BRAND Not Available Start: 07-10-2023 End: 07-10-2023 ambulatory NIRAJ BEACH Not Available Start: 10-30-2022 End: 10-31-2022 ambulatory ARIANE HEDRICK Facility:[facility] Start: 06-21-2022 End: 06-21-2022 ambulatory ARIANE HEDRICK Facility:[facility] Start: 04-08-2022 End: 04-08-[address] BELKIS BRAND . Facility:[facility] Start: 01-06-2022 End: 01-06-2022 ambulatory LITA GARCIA . Facility:[facility] Payers Date Payer Category Payer Unknown [id number] [id number] [id number] 2000 Unknown [id number] [id number] [id number] 2000 Unknown [id number] 2.16.84 [id number] 2000 Unknown [id number] 2.16.84 [id number] 2000 Unknown [id number] 2000 Unknown [id number] 2000 Unknown [id number] 1959 Unknown [id number] Summary Purpose Family History No Family History Records FoundNo Family History Records Found Advance Directives No Advanced Directives Records FoundNo Advanced Directives Records Found Additional Source Comments INFORMATION SOURCE (unrecogn ized section and content) DATE CREATED AUTHOR 11/07/2022 [facility] DATE CREATED AUTHOR AUTHOR'S ORGANIZ ATION 08/23/2023 [facility] EPIC FOR RECORDS PERTAINING TO PATIENTS WHO ARE OR HAVE BEEN ENROLLED IN A CHEMICAL DEPENDENCY/SUBSTANCEABUSE PROGRAM, SOME INFORMATION MAY BE OMITTED. This clinical summary was aggregated from multiple sources. Caution should be exercised in using it in the provision of clinical care. This summary normalizes information from multiple sources, and as a consequence, information in this document may materially change the coding, format and clinical context of patient data. In addition, data may be omitted in some cases. CLINICAL DECISIONS SHOULD BE BASED ON THE PRIMARY CLINICAL RECORDS. [employer] [employer] provides no warranty or guarantee of the accuracy or completeness of information in this document.
[2023-09-25 14:10] LABS: Age Gdln ACOG Testing Note (.); IGP, rfx Aptima HPV ASCU Note (.)
== END 2023-09-22 21:52 | disposition home or self-care (01) ==
LOC: LAB 21:51
PROVIDERS: PCP Nurse Practitioner Family; Visit Provider Obstetrics & Gynecology
DX: Z01.419 Encounter for gynecological examination (general) (routine) without abnormal findings (principal)
CPT/HCPCS: G0145

== ENCOUNTER 2023-09-27 12:36 | Outpatient (OUT) | payer OTHER, SELFPAY ==
--- NOTE | 2023-09-27 | US_ITS ---
[address] [address] Patient Name: FLORENCIA NEELY MRN: [id number] date: 2000 Sex: F Assigned Patient Location: US Current Patient Location: Accession/Order Number: [id number] Exam Date: 09/27/2023 12:51 Report Date: 09/29/2023 07:01 At the request of: BELKIS BRAND Procedure: US OB cervical length EXAMINATION: US OB anatomy, US OB cervical length HISTORY: ANATOMY SURVEY Z36.89 COMPARISON: No relevant comparison available. TECHNIQUE: Transabdominal sonographic examination was performed for obstetrical and evaluation. FINDINGS: Number: 1 Heart Rate: 145.9 bpm H.B. /min Amniotic Fluid Volume: Subjectively normal position: Cephalic presentation longitudinal lie Placental Location: Anterior fundal. Grade 0. Placental edge 6.3 cm from the internal os Cervix Length: 4.4 cm , closed Normal anatomy: Lateral ventricles, cerebellum, posterior fossa, nose, lips, orbits, four-chamber heart, RVOT, LVOT, diaphragm, stomach, kidneys, abdominal cord insertion, bladder, umbilical arteries, three-vessel cord, spine, extremities BIOMETRY: BPD: 5.0 cm 21 weeks 2 days , 85% HC: 18.7 cm 21 weeks 0 days, 74% AC: 16.7 cm 21 weeks 5 days, 86% FL: 3.3 cm 20 weeks 1 days , 37% EFW:393.7 grams; 14 ounces, 84% FL/AC: 19.5 FL/BPD: 64.6 HC/AC: 1.1 GESTATIONAL AGE: Age by EDC: 20 weeks 2 days Age by current US: 21 weeks 0 days AGATHA by current US: 02/07/2024 AGATHA by EDC: 02/12/2024 US/US OB cervical length IMPRESSION: Normal anatomy scan Closed cervix measuring 4.4 cm in length *Reference: [employer] Practice Guideline for the performance of Obstetric Ultrasound Examinations, May 25, 2007. Electronically authenticated by: LOUISE MOHAMUD Date: 09/29/2023 07:01
--- NOTE | 2023-09-27 | US_ITS ---
[address] [address] Patient Name: FLORENCIA NEELY MRN: [id number] date: 2000 Sex: F Assigned Patient Location: US Current Patient Location: US Accession/Order Number: [id number] Exam Date: 09/27/2023 12:51 Report Date: 09/29/2023 07:01 At the request of: BELKIS BRAND Procedure: US OB anatomy EXAMINATION: US OB anatomy, US OB cervical length HISTORY: ANATOMY SURVEY Z36.89 COMPARISON: No relevant comparison available. TECHNIQUE: Transabdominal sonographic examination was performed for obstetrical and evaluation. FINDINGS: Number: 1 Heart Rate: 145.9 bpm H.B. /min Amniotic Fluid Volume: Subjectively normal position: Cephalic presentation longitudinal lie Placental Location: Anterior fundal. Grade 0. Placental edge 6.3 cm from the internal os Cervix Length: 4.4 cm , closed Normal anatomy: Lateral ventricles, cerebellum, posterior fossa, nose, lips, orbits, four-chamber heart, RVOT, LVOT, diaphragm, stomach, kidneys, abdominal cord insertion, bladder, umbilical arteries, three-vessel cord, spine, extremities BIOMETRY: BPD: 5.0 cm 21 weeks 2 days , 85% HC: 18.7 cm 21 weeks 0 days, 74% AC: 16.7 cm 21 weeks 5 days, 86% FL: 3.3 cm 20 weeks 1 days , 37% EFW:393.7 grams; 14 ounces, 84% FL/AC: 19.5 FL/BPD: 64.6 HC/AC: 1.1 GESTATIONAL AGE: Age by EDC: 20 weeks 2 days Age by current US: 21 weeks 0 days AGATHA by current US: 02/07/2024 AGATHA by EDC: 02/12/2024 US/US OB anatomy IMPRESSION: Normal anatomy scan Closed cervix measuring 4.4 cm in length *Reference: [employer] Practice Guideline for the performance of Obstetric Ultrasound Examinations, May 25, 2007. Electronically authenticated by: LOUISE MOHAMUD Date: 09/29/2023 07:01
--- OUTSIDE RECORDS SUMMARY | 2023-09-27 12:39 | XMS_ITS | CCD ---
Author Name Unknown Address [address] [facility] [id number] [place] [address] Organization [facility] Care Team Providers Care Editor & Co Founder Name Role Phone JOSE ., LITA Admitting Unavailable JOSE ., LITA Attending Unavailable RYLEY, ARIANE Primary Care Unavailable JOSE ., LITA Consulting Unavailable RYLEY, ARIANE Admitting Unavailable RYLEY, ARIANE Attending Unavailable RYLEY, ARIANE Primary Care Unavailable ARIANE HEDRICK Consulting Unavailable JESSICA ., DR TAMAYO Admitting Unavailable JESSICA ., DR TAMAYO Attending Unavailable RYLEY, ARIANE Primary Care Unavailable JESSICA ., DR TAMAYO Consulting Unavailable RYLEY, ARIANE Primary Care Unavailable PAY ., DR NELSON Admitting Unavailable PAY ., DR NELSON Attending Unavailable PAY ., DR NELSON Consulting Unavailable NIRAJ BEACH Attending Unavailable BELKIS LOPEZ Attending Unavailable BELKIS LOPEZ Attending Unavailable Unavailable Primary Care Provider Unavailabl e Allergies Allergy Classification Reported Allergen(s) Allergy Type Date of Onset Reaction(s) Facility (1 source) Ibuprofen Drug Allergy 01-15-2016 [facility] (1 source) Ibuprofen Drug Allergy 07-10-2023 Unknown [facility] Work Phone: Medications Current Medications Medication Drug Class(es) Dates Sig (Normalized) Sig (Original) omeprazole 20 mg delayed release oral capsule (1 source) Proton Pump Inhibitor Start: 09-22-2023 End: 09-21-2024 take 1 capsule by mouth before mealtime omeprazole (PriLOSEC) [address] capsule Indications: Heartburn Take 1 capsule (20 mg) by mouth in the morning. Take before meals. Do not crush or chew.. 30 capsule 11 09/22/2023 09/21/2024 Active ondansetron 4 mg disintegrating oral tablet (1 source) Serotonin-3 Receptor Antagonist Start: 05-31-2023 take 1 tablet by mouth every six hours as needed for nausea and vomiting ondansetron ODT (Zofran-ODT) 4 MG disintegrating tablet Take 4 mg by mouth every 6 (six) hours if needed for nausea or vomiting. 0 05/31/2023 Active promethazine hydrochloride 12.5 mg oral tablet (1 source) Phenothiazine Start: 07-10-2023 End: 10-08-2023 take 1 tablet by mouth every four hours promethazine (Phenergan) 12.5 MG tablet Indications: Nausea and vomiting during Take 1 tablet (12.5 mg) by mouth every 4 (four) hours. 180 tablet 1 07/10/2023 10/08/2023 Active Problems Active Problems Problem Classification Problem Date [...] Test Name Value Interpretation Reference Range Facility IGP,APTIMA HPV,AGE GDLNon AGE GDLN ACOG TESTING Note . [facility] Comment on above: TESTS RESULT FLAG UN ITS REF RANGE LAB Clinician Provided Cytology Information Source.............Cervix Other.............. No. of containers..01 ThinPrep Vial Age Algo ACOG Bina... FLAG LEGEND: L-Low Normal,H-High Normal,LL-Alert Low,HH-Alert High <-Panic Low,>-Panic High,A-Abnormal,AA-Critical Abnormal Performed at: 01 =[facility] [id number] Lali Holloway MD, IGP, RFX APTIMA HPV ASCU Note . [facility] Comment on above: TESTS RESULT FLAG UN ITS REF RANGE LAB DIAGNOSIS: 02 NEGATIVE FOR INTRAEPITHELIAL LESION OR MALIGNANCY. Specimen adequacy: 02 Satisfactory for evaluation. No endocervical component is identified. An endocervical component is not commonly seen in the patient. Performed by: 02 Kieran Pickering, Distillation Operator ([facility]) . 02 Note: Note 02 The Pap smear is a screening test designed to aid in the detection of premalignant and malignant conditions of the uterine cervix. It is not a diagnostic procedure and should not be used as the sole means of detecting cervical cancer. Both false-positive and false-negative reports do occur. Test Methodology: Note 02 This liquid based ThinPrep(R) pap test was screened with the use of an image guided system. . 02 The HPV DNA reflex criteria were not met with this specimen result therefore, no HPV testing was performed. FLAG LEGEND: L-Low Normal,H-High Normal,LL-Alert Low,HH-Alert High <-Panic Low,>-Panic High,A-Abnormal,AA-Critical Abnormal Performed at: [address] [address] Lali Holloway MD, Performed at: =G - [facility] [address] [id number] Metal Furnace Operator: Lali Holloway MD, Phone: [phone] Performed at: - [facility] [id number] Metal Furnace Operator: Lali Holloway MD, Phone: [phone] SPATULA[facility]IX [facility] COMPLIANCE DRUG SCREENon PDF . Normal [facility] Comment on above: Performed By: #### U RCX #### [facility] [address] [place] [address] Dr. Tisha Carr Summary FINAL Normal [facility] Comment on above: Result Comment: TOXASSURE [...] test is not intended to distinguish between [id number], the predominant form of THC in most herbal or marijuana-based products, and [id number]. Methylphenidate PRESENT UNEXPECTED Ritalinic Acid PRESENT UNEXPECTED [...] . Performed By: #### U RCX #### [facility] [address] [place] [address] Dr. Tisha Carr URIC ACID RAND URINEon 10-31 Uric Acid, Urine 67.3 mg/dL Normal Not Estab. [facility] Comment on above: Performed By: #### U RCX #### [facility] [address] [place] [address] Dr. Tisha Carr DRUG SCREEN RAPID (URINE)on 10-30-2022 AMP Negative Normal NEGATIVE [facility] Comment on above: Performed By: #### U RCX #### [facility] [address] [place] [address] Dr. Tisha Carr BAR Negative Normal NEGATIVE [facility] Comment on above: Performed By: #### U RCX #### [facility] [address] [place] [address] Dr. Tisha Carr BUP Negative Normal NEGATIVE [facility] Comment on above: Performed By: #### U RCX #### [facility] [address] [place] [address] Dr. Tisha Carr BZO Negative Normal NEGATIVE [facility] Comment on above: Performed By: #### U RCX #### [facility] [address] [place] [address] Dr. Tisha Carr SOCRATES Negative Normal NEGATIVE [facility] Comment on above: Performed By: #### U RCX #### [facility] [address] [place] [address] Dr. Tisha Carr CUT-OFFS SEE BELOW Normal [facility] Comment on above: Result Comment: AMP [...] ng/mL Performed By: #### U RCX #### [facility] [address] [place] [address] Dr. Tisha Carr DRUG CUT HEADER DRUG CLASS TEST SYST EM CUT-OFF CONCENTRATIONS ARE FOLLOWS: Normal [facility] Comment on above: Performed By: #### U RCX #### [facility] [address] [place] [address] Dr. Tisha Carr mAMP Negative Normal NEGATIVE [facility] Comment on above: Performed By: #### U RCX #### [facility] [address] [place] [address] Dr. Tisha Carr MTD Negative Normal NEGATIVE [facility] Comment on above: Performed By: #### U RCX #### [facility] [address] [place] [address] Dr. Tisha Carr OPI Negative Normal NEGATIVE [facility] Comment on above: Performed By: #### U RCX #### [facility] [address] [place] [address] Dr. Tisha Carr OXY Negative Normal NEGATIVE [facility] Comment on above: Performed By: #### U RCX #### [facility] [address] [place] [address] Dr. Tisha Carr PCP Negative Normal NEGATIVE [facility] Comment on above: Performed By: #### U RCX #### [facility] [address] [place] [address] Dr. Tisha Carr PPX Negative Normal NEGATIVE [facility] Comment on above: Performed By: #### U RCX #### [facility] [address] [place] [address] Dr. Tisha Carr TCA Negative Normal NEGATIVE [facility] Comment on above: Performed By: #### U RCX #### [facility] [address] [place] [address] Dr. Tisha Carr THC Positive Abnormal NEGATIVE [facility] Comment on above: Performed By: #### U RCX #### [facility] [address] [place] [address] Dr. Tisha Carr CBC AUTO DIFFon 06-21-2022 BASO # 0.0 103/ul Normal 0.0-0.1 [facility] Comment on above: Performed By: #### U RCX #### [facility] [address] [place] [address] Dr. Tisha Carr Basophils/100 WBC (Bld) 0.2 % Normal 0.2-2.0 [facility] Comment on above: Performed By: #### U RCX #### [facility] [address] [place] [address] Dr. Tisha Carr EO # 0.0 103/ul Normal 0.0-0.7 [facility] Comment on above: Performed By: #### U RCX #### [facility] [address] [place] [address] Dr. Tisha Carr Eosinophils/100 WBC (Bld) 0.2 % Critically low 0.9-7.0 [facility] Comment on above: Performed By: #### U RCX #### [facility] [address] [place] [address] Dr. Tisha Carr Erythrocyte distribution width (RBC) [Ratio] 12.3 % Normal 11.0-15.0 [facility] Comment on above: Performed By: #### U RCX #### [facility] [address] [place] [address] Dr. Tisha Carr Hematocrit (Bld) [Volume fraction] 43.1 % Normal 36.0-48.0 [facility] Comment on above: Performed By: #### U RCX #### [facility] [address] [address] [address] Tisha Carr Hemoglobin (Bld) [Mass/Vol] 15.1 g/dL Normal 12.0-16.0 [facility] Comment on above: Performed By: #### U RCX #### [facility] [address] [address] [address] Tisha Carr IG # 0.06 10e3/ul Critically high 0.00-0.03 [facility] Comment on above: Performed By: #### U RCX #### [facility] [address] [address] [address] Tisha Carr IG % 0.5 % Normal 0.0-0.5 [facility] Comment on above: Performed By: #### U RCX #### [facility] [address] [address] [address] Tisha Carr LYMPH # 1.0 103/ul Critically low 1.2-3.8 [facility] Comment on above: Performed By: #### U RCX #### [facility] [address] [address] [address] Tisha Carr Lymphocytes/100 WBC (Bld) 8.2 % Critically low 20.5-60.0 [facility] Comment on above: Performed By: #### U RCX #### [facility] [address] [address] [address] Tisha Carr MANUAL DIFF REQ NO Normal [facility] Comment on above: Performed By: #### U RCX #### [facility] [address] [address] [address] Tisha Carr MCH (RBC) [Entitic mass] 30.3 pg Normal 26.7-34.0 [facility] Comment on above: Performed By: #### U RCX #### [facility] [address] [address] [address] Tisha Carr MCHC (RBC) [Mass/Vol] 35.0 g/dL Normal 29.9-35.2 [facility] Comment on above: Performed By: #### U RCX #### [facility] [address] [address] [address] Tisha Carr MCV (RBC) [Entitic vol] 86.4 fL Normal 81.0-99.0 [facility] Comment on above: Performed By: #### U RCX #### [facility] [address] [address] [address] Tisha Carr MONO # 0.8 103/ul Normal 0.3-0.8 [facility] Comment on above: Performed By: #### U RCX #### [facility] [address] [address] [address] Tisha Carr Monocytes/100 WBC (Bld) 6.0 % Normal 1.7-12.0 [facility] Comment on above: Performed By: #### U RCX #### [facility] [address] [place] [address] Dr. Tisha Carr NEUT # 10.8 103/ul Critically high 1.4-6.5 [facility] Comment on above: Performed By: #### U RCX #### [facility] [address] [place] [address] Dr. Tisha Carr Neutrophils/100 WBC (Bld) 84.9 % Critically high 43.0-75.0 [facility] Comment on above: Performed By: #### U RCX #### [facility] [address] [address] [address] Tisha Carr Platelet mean volume (Bld) [Entitic vol] 10.8 fL Normal 9.5-13.5 [facility] Comment on above: Performed By: #### U RCX #### [facility] [address] [address] [address] Tisha Carr PLT 237 103/ul Normal 150-450 [facility] Comment on above: Performed By: #### U RCX #### [facility] [address] [address] [address] Tisha Carr RBC 4.99 106/ul Normal 4.20-5.40 [facility] Comment on above: Performed By: #### U RCX #### [facility] [address] [address] [address] Tisha Carr WBC 12.7 103/ul Critically high 4.0-11.0 [facility] Comment on above: Performed By: #### U RCX #### [facility] [address] [address] [address] Tisha Carr CRPon 06-21-2022 CRP 10.0 mg/dL Critically high <=1.0 [facility] Comment on above: Performed By: #### C RP, CMP, LIPA #### [facility] [address] [address] [address] Tisha Carr ER URINE PROFILEon Bilirubin Ql (U) SMALL Abnormal NEGATIVE [facility] Comment on above: Performed By: #### E RUR, UMICRO, PREGU #### [facility] [address] [address] [address] Tisha Carr Clarity (U) CLEAR Normal CLEAR [facility] Comment on above: Performed By: #### E RUR, UMICRO, PREGU #### [facility] [address] [address] [address] Tisha Carr Color (U) YELLOW Normal YELLOW [facility] Comment on above: Performed By: #### E RUR, UMICRO, PREGU #### [facility] [address] [address] [address] Tisha Carr ERUAHD A micrscopic examina tion will be performed if indicated. Normal [facility] Comment on above: Performed By: #### E RUR, UMICRO, PREGU #### [facility] [address] [address] [address] Tisha Carr Glucose Ql (U) Negative Normal NEGATIVE [facility] Comment on above: Performed By: #### E RUR, UMICRO, PREGU #### [facility] [address] [address] [address] Tisha Carr Hemoglobin Ql (U) MODERATE Abnormal NEGATIVE [facility] Comment on above: Performed By: #### E RURLEIGHICRO, PREGU #### [facility] [address] [address] [address] Tisha Carr Ketones Ql (U) 80 mg/dl Abnormal NEGATIVE [facility] Comment on above: Performed By: #### LEIGH BRYANTICRO, PREGU #### [facility] [address] [address] [address] Tisha Carr LEUKOCYTES Negative Normal NEGATIVE [facility] Comment on above: Performed By: #### LEIGH BRYANTICRO, PREGU #### [facility] [address] [address] [address] Tisha Carr Nitrite Ql (U) Negative Normal NEGATIVE [facility] Comment on above: Performed By: #### YULY BRYANT, PREGU #### [facility] [address] [place] [address] Dr. Tisha Carr pH (U) 6.0 [pH] Normal 5-9 [facility] Comment on above: Performed By: #### YULY BRYANT, PREGU #### [facility] [address] [address] [address] Tisha Carr SPEC GRAVITY 1.025 Normal 1.005-<=1.025 [facility] Comment on above: Performed By: #### YULY BRYANT, PREGU #### [facility] [address] [address] [address] Tisha Carr UA PROTEIN TRACE Normal NEGATIVE/ TRACE [facility] Comment on above: Performed By: #### YULY BRYANT, PREGU #### [facility] [address] [address] [address] Tisha Carr UR MICRO IND INDICATED Normal [facility] Comment on above: Performed By: #### YULY BRYANT, PREGU #### [facility] [address] [place] [address] Dr. Tisha Carr Urobilinogen Qn (U) 1.0 {Alma'U}/dL Normal 0.2 - 1.0 [facility] Comment on above: Performed By: #### YULY BRYANT, PREGU #### [facility] [address] [place] [address] Dr. Tisha Carr LACTATE/LACTIC ACIDon 2021 Lactate [Moles/Vol] 1.0 mmol/L Normal 0.4-1.9 [facility] Comment on above: Performed By: #### U RCX #### [facility] [address] [place] [address] Dr. Tisha Carr LIPASEon 06-21-2022 Lipase [Catalytic activity/Vol] 41.0 U/L Critically low 73.0-393.0 [facility] Comment on above: Performed By: #### C RP, CMP, LIPA #### [facility] [address] [place] [address] Dr. Tisha Carr URon 06-21-2022 , QUAL Negative Normal NEGATIVE [facility] Comment on above: Performed By: #### YULY BRYANT PREGU #### [facility] [address] [place] [address] Dr. Tisha Carr PROF 14(COMP METB)on 022 Albumin [Mass/Vol] 4.0 g/dL Normal 3.4-5.0 [facility] Comment on above: Performed By: #### C RP, CMP, LIPA #### [facility] [address] [place] [address] Dr. Tisha Carr Albumin/Globulin [Mass ratio] 1.0 {ratio} Normal [facility] Comment on above: Performed By: #### C RP, CMP, LIPA #### [facility] [address] [place] [address] Dr. Tisha Carr ALP [Catalytic activity/Vol] 74 U/L Normal 46-116 [facility] Comment on above: Performed By: #### C RP, CMP, LIPA #### [facility] [address] [place] [address] Dr. Tisha Carr ALT [Catalytic activity/Vol] 33 U/L Normal 14-59 [facility] Comment on above: Performed By: #### C RP, CMP, LIPA #### [facility] [address] [address] [address] Tisha Carr Anion gap [Moles/Vol] 15.8 mmol/L Normal [facility] Comment on above: Performed By: #### C RP, CMP, LIPA #### [facility] [address] [address] [address] Tisha Carr AST [Catalytic activity/Vol] 17 U/L Normal 15-37 [facility] Comment on above: Performed By: #### C RP, CMP, LIPA #### [facility] [address] [address] [address] Tisha Carr Bilirubin [Mass/Vol] 1.3 mg/dL Critically high 0.2-1.0 [facility] Comment on above: Performed By: #### C RP, CMP, LIPA #### [facility] [address] [address] [address] Tisha Carr Calcium [Mass/Vol] 9.2 mg/dL Normal 8.5-10.1 [facility] Comment on above: Performed By: #### C RP, CMP, LIPA #### [facility] [address] [address] [address] Tisha Carr Chloride [Moles/Vol] 102 mmol/L Normal 98-107 [facility] Comment on above: Performed By: #### C RP, CMP, LIPA #### [facility] [address] [address] [address] Tisha Carr CO2 [Moles/Vol] 22.7 mmol/L Normal 21.0-32.0 [facility] Comment on above: Performed By: #### C RP, CMP, LIPA #### [facility] [address] [address] [address] Tisha Carr Creatinine [Mass/Vol] 0.70 mg/dL Normal 0.55-1.02 [facility] Comment on above: Performed By: #### C RP, CMP, LIPA #### [facility] [address] [address] [address] Tisha Carr EGFR-AF IVORIAN >60 Normal >=60 [facility] Comment on above: Performed By: #### C RP, CMP, LIPA #### [facility] [address] [place] [address] Dr. Tisha Carr EGFR-NON AF IVORIAN >60 Normal >=60 [facility] Comment on above: Performed By: #### C RP, CMP, LIPA #### [facility] [address] [place] [address] Dr. Tisha Carr Globulin (S) [Mass/Vol] 4.2 g/dL Normal [facility] Comment on above: Performed By: #### C RP, CMP, LIPA #### [facility] [address] [place] [address] Dr. Tisha Carr Glucose [Mass/Vol] 93 mg/dL Normal 74-106 [facility] Comment on above: Performed By: #### C RP, CMP, LIPA #### [facility] [address] [place] [address] Dr. Tisha Carr Potassium [Moles/Vol] 3.5 mmol/L Normal 3.5-5.1 [facility] Comment on above: Performed By: #### C RP, CMP, LIPA #### [facility] [address] [place] [address] Dr. Tisha Carr Protein [Mass/Vol] 8.2 g/dL Normal 6.4-8.2 [facility] Comment on above: Performed By: #### C RP, CMP, LIPA #### [facility] [address] [place] [address] Dr. Tisha Carr Sodium [Moles/Vol] 137 mmol/L Normal 136-145 [facility] Comment on above: Performed By: #### C RP, CMP, LIPA #### [facility] [address] [place] [address] Dr. Tisha Carr Urea nitrogen [Mass/Vol] 16.0 mg/dL Normal 7.0-18.0 [facility] Comment on above: Performed By: #### C RP, CMP, LIPA #### [facility] [address] [place] [address] Dr. Tisha Carr Urea nitrogen/Creatini ne [Mass ratio] 22.9 mg/mg Normal [facility] Comment on above: Performed By: #### C RP, CMP, LIPA #### [facility] [address] [address] [address] Tisha Carr URINE MICROSCOPIC ONLYon BACTERIA TRACE Abnormal NONE SEEN [facility] Comment on above: Performed By: #### YULY BRYANT, PREGU #### [facility] [address] [place] [address] Dr. Tisha Carr Bacteria identified Cx Nom (U) NOT INDICATED Normal [facility] Comment on above: Performed By: #### YULY BRYANT, PREGU #### [facility] [address] [place] [address] Dr. Tisha Carr CAST NONE SEEN Normal NONE SEEN [facility] Comment on above: Performed By: #### YULY BRYANT, PREGU #### [facility] [address] [place] [address] Dr. Tisha Carr Crystals LM Nom (Urine sed) NONE SEEN Normal NONE SEEN [facility] Comment on above: Performed By: #### YULY BRYANT, PREGU #### [facility] [address] [place] [address] Dr. Tisha Carr Epithelial cells LM Ql (Urine sed) MODERATE Abnormal NONE SEEN /RARE [facility] Comment on above: Performed By: #### YULY BRYANT, PREGU #### [facility] [address] [place] [address] Dr. Tisha Carr MUCOUS MODERATE Abnormal NONE SEEN [facility] Comment on above: Performed By: #### YULY BRYANT, PREGU #### [facility] [address] [place] [address] Dr. Tisha Carr RBC 0-2 Normal 0-2 [facility] Comment on above: Performed By: #### YULY BRYANT, PREGU #### [facility] [address] [place] [address] Dr. Tisha Carr WBC 0-2 Abnormal NONE SEEN [facility] Comment on above: Performed By: #### E RUR, LEIGHICRO, PREGU #### [facility] [address] [place] [address] Dr. Tisha Carr PAP ACOG PANEL 2: 21 to 29on 04-11-2022 . . Normal [facility] Comment on above: Performed By: #### U RCX #### [facility] [address] [place] [address] Dr. Tisha Carr Age Gdln ACOG Testing - Normal [facility] Comment on above: Performed By: #### U RCX #### [facility] [address] [address] [address] Tisha Carr DIAGNOSIS: Comment [facility] Comment on above: Result Comment: NEGA TIVE FOR INTRAEPITHELIAL LESION OR MALIGNANCY. FUNGAL ORGANISMS MORPHOLOGICALLY CONSISTENT WITH SHEREE SPECIES ARE PRESENT. Performed By: #### U RCX #### [facility] [address] [place] [address] Dr. Tisha Carr Methodology: Comment Normal [facility] Comment on above: Result Comment: This liquid based ThinPrep(R) pap test was screened with the use of an image guided system. Performed By: #### U RCX #### [facility] [address] [place] [address] Dr. Tisha Carr Note: Comment [facility] Comment on above: Result Comment: The Pap smear is a screening test designed to aid in the detection of premalignant and malignant conditions of the uterine cervix. It is not a diagnostic procedure and should not be used as the sole means of detecting cervical cancer. Both false-positive and false-negative reports do occur. . Performed By: #### U RCX #### [facility] [address] [place] [address] Dr. Tisha Carr Performed by: Comment Normal [facility] Comment on above: Result Comment: Caleb Schaeffer, Distillation Operator (ASCP) Performed By: #### U RCX #### [facility] [address] [place] [address] Dr. Tisha Carr Reflex Criteria: Comment Normal [facility] Comment on above: Result Comment: The HPV DNA reflex criteria were not met with this specimen result therefore, no HPV testing was performed. . Performed By: #### U RCX #### [facility] [address] [address] [address] Tisha Carr Specimen adequacy: Comment Normal [facility] Comment on above: Result Comment: Sati sfactory for evaluation. Endocervical and/or squamous metaplastic cells (endocervical component) are present. Performed By: #### U RCX #### [facility] [address] [address] [address] Tisha Carr CULTURE URINEon 01-08-2022 CULTURE [...] Trimethoprim/Sulfamethoxa zole <=20 S F Normal [facility] Comment on above: Performed By: #### U RCX #### [facility] [address] [address] [address] Tisha Carr Covid-19 PCR (CVDTBH)on 12-23 SARS-CoV-2 (COVID-19) RNA OC+probe Ql (Unsp spec) Not detected Normal NOT DETECTED [facility] Comment on above: Result Comment: This test is not yet approved or cleared by the [place] FDA. When there are no FDA-approved or cleared tests available, and other criteria are met, FDA can make tests available under an emergency access mechanism called an Emergency Use Authorization (EUA). The EUA for this test is supported by the [place] of Health and Human Service's (HHS's) declaration [...] SARS-CoV-2. Performed By: #### C VDTBH #### [facility] [address] [place] [address] Dr. Tisha Carr ER URINE PROFILEon 2 Bilirubin Ql (U) MODERATE Abnormal NEGATIVE [facility] Comment on above: Performed By: #### YULY BRYANT, PREGU #### [facility] [address] [place] [address] Dr. Tisha Carr Clarity (U) CLEAR Normal CLEAR [facility] Comment on above: Performed By: #### YULY BRYANT, PREGU #### [facility] [address] [place] [address] Dr. Tisha Carr Color (U) DK. YELLOW Normal YELLOW [facility] Comment on above: Performed By: #### YULY BRYANT, PREGU #### [facility] [address] [place] [address] Dr. Tisha Carr ERUAHD A micrscopic examina tion will be performed if indicated. Normal [facility] Comment on above: Performed By: #### YULY BRYANT, PREGU #### [facility] [address] [place] [address] Dr. Tisha Carr Glucose Ql (U) Negative Normal NEGATIVE [facility] Comment on above: Performed By: #### YULY BRYANT, PREGU #### [facility] [address] [place] [address] Dr. Tisha Carr Hemoglobin Ql (U) Negative Normal NEGATIVE [facility] Comment on above: Performed By: #### YULY BRYANT, PREGU #### [facility] [address] [address] [address] Tisha Carr Ketones Ql (U) >=80 Abnormal NEGATIVE [facility] Comment on above: Performed By: #### YULY BRYANT, PREGU #### [facility] [address] [address] [address] Tisha Carr LEUKOCYTES TRACE Abnormal NEGATIVE [facility] Comment on above: Performed By: #### YULY BRYANT PREGU #### [facility] [address] [address] [address] Tisha Carr Nitrite Ql (U) Negative Normal NEGATIVE [facility] Comment on above: Performed By: #### YULY BRYANT PREGU #### [facility] [address] [place] [address] Dr. Tisha Carr pH (U) 6.0 [pH] Normal 5-9 [facility] Comment on above: Performed By: #### YULY BRYANT PREGU #### [facility] [address] [address] [address] Tisha Carr Protein (U) [Mass/Vol] 100 mg/dL Abnormal NEGATIVE/ TRACE [facility] Comment on above: Performed By: #### YULY BRYANT PREGU #### [facility] [address] [address] [address] Tisha Carr SPEC GRAVITY 1.025 Normal 1.005-<=1.025 [facility] Comment on above: Performed By: #### YULY BRYANT PREGU #### [facility] [address] [address] [address] Tisha Carr UR MICRO IND INDICATED Normal [facility] Comment on above: Performed By: #### YULY BRYANT PREGU #### [facility] [address] [place] [address] Dr. Tisha Carr Urobilinogen Qn (U) 1.0 {Alma'U}/dL Normal 0.2 - 1.0 [facility] Comment on above: Performed By: #### E YULY CUMMINS PREGU #### [facility] [address] [place] [address] Dr. Tisha Carr INFLUENZA A AND B AGon 01-06 INFLUANEGH SEE BELOW Normal [facility] Comment on above: Result Comment: Nega tive for Flu A protein angiten. Infection due to Flu A cannot be ruled out. Flu A angiten in the sample may be below the detection limit of the test. Performed By: #### U RCX #### [facility] [address] [place] [address] Dr. Tisha Carr INFLUBNEGH SEE BELOW Normal [facility] Comment on above: Result Comment: Nega tive for Flu B protein antigen. Infection due to Flu B cannot be ruled out. Flu B antigen in the sample may be below the detection limit of the test. Performed By: #### U RCX #### [facility] [address] [place] [address] Dr. Tisha Carr INFLUENZA A AG Negative Normal NEGATIVE SEE COMMENT [facility] Comment on above: Performed By: #### U RCX #### [facility] [address] [place] [address] Dr. Tisha Carr INFLUENZA B AG Negative Normal NEGATIVE SEE COMMENT [facility] Comment on above: Performed By: #### U RCX #### [facility] [address] [place] [address] Dr. Tisha Carr INTERNAL CONTROLS Within Normal Limits Normal Wi thin Normal Limits [facility] Comment on above: Performed By: #### U RCX #### [facility] [address] [place] [address] Dr. Tisha Carr URon 01-06-2022 , QUAL Negative Normal NEGATIVE [facility] Comment on above: Performed By: #### YULY BRYANT PREGU #### [facility] [address] [place] [address] Dr. Tisha Carr URINE MICROSCOPIC ONLYon BACTERIA SMALL Abnormal NONE SEEN [facility] Comment on above: Performed By: #### U RCX #### [facility] [address] [address] [address] Tisha Carr Bacteria identified Cx Nom (U) INDICATED Normal [facility] Comment on above: Performed By: #### U RCX #### [facility] [address] [place] [address] Dr. Tisha Carr CAST NONE SEEN Normal NONE SEEN [facility] Comment on above: Performed By: #### U RCX #### [facility] [address] [place] [address] Dr. Tisha Carr Crystals LM Nom (Urine sed) NONE SEEN Normal NONE SEEN [facility] Comment on above: Performed By: #### U RCX #### [facility] [address] [place] [address] Dr. Tisha Carr Epithelial cells LM Ql (Urine sed) MANY Abnormal NONE SEEN /RARE [facility] Comment on above: Performed By: #### U RCX #### [facility] [address] [place] [address] Dr. Tisha Carr MUCOUS LARGE Abnormal NONE SEEN [facility] Comment on above: Performed By: #### U RCX #### [facility] [address] [place] [address] Dr. Tisha Carr RBC NONE SEEN Abnormal 0-2 [facility] Comment on above: Performed By: #### U RCX #### [facility] [address] [place] [address] Dr. Tisha Carr WBC 5-10 Abnormal NONE SEEN [facility] Comment on above: Performed By: #### U RCX #### [facility] [address] [place] [address] Dr. Tisha Carr Encounters Encounter Date Encounter Type Care Provider Facility Start: 09-22-2023 End: 09-22-2023 ambulatory BELKIS JESSICA Not Available Start: 09-22-2023 Clinisync Result Encounter Belkis Jessica DO Work Phone: [facility] Unsolicited Start: 09-22-2023 Clinisync Result Encounter Belkis Jessica DO Work Phone: [facility] Unsolicited Start: 08-21-2023 End: 08-21-2023 ambulatory NIRAJ BEACH Not Available Start: 07-23-2023 End: 07-23-2023 ambulatory BELKIS LOPEZ Not Available Start: 07-10-2023 End: 07-10-2023 ambulatory NIRAJ BEACH Not Available Start: 10-30-2022 End: 10-31-2022 ambulatory ARIANE HEDRICK Facility:[facility] Start: 06-21-2022 End: 06-21-2022 ambulatory ARIANE HEDRICK Facility:[facility] Start: 04-08-2022 End: 04-08-[address] BELKIS LOPEZ . Facility:[facility] Start: 01-06-2022 End: 01-06-2022 ambulatory LITA GARCIA . Facility:[facility] Procedures Date Procedure Procedure Detail Performing Clinician Start: 09-22-2023 IGP,APTIMA HPV,AGE GDLN Belkis Lopez DO Work Phone: Plan of Treatment Date Care Activity Detail Author Start: 10-20-2023 End: 10-20-2023 Patient encounter procedure 10/20/2023 3:10 PM EST Routine [facility] [address] [place] [id number] Belkis Lopez, DO [address] [place] [address] [facility] Payers Date Payer Category Payer Medicaid [employer] [place] [employer] [id number] 2021-Present [address] [place] [address] [id number] 2000 Unknown [id number] 2000 Unknown [id number] 2000 Unknown [id number] 2000 Unknown [id number] 2000 Unknown [id number] 2000 Unknown [id number] 2000 Unknown [id number] 2000 Unknown [id number] 1959 Unknown [id number] Social History Date Type Detail Facility Tobacco smoking stat [facility] Tobacco smoking consumption unknown [facility] Start: 05-22-2023 [facility] Start: 2000 Sex Assigned At Female [facility] Start: 07-03-2023 Gender identity Identifies as female gender (finding) [facility] Sexual orientation Not on file [facility] Summary Purpose Family History No Family History Records FoundNo Family History Records Found Advance Directives No Advanced Directives Records FoundNo Advanced Directives Records Found Additional Source Comments INFORMATION SOURCE (unrecogn ized section and content) DATE CREATED AUTHOR 11/07/2022 [facility] DATE CREATED AUTHOR AUTHOR'Frantz MCGUIRE 09/23/2023 [facility] EPIC FOR RECORDS PERTAINING [...] BE BASED ON THE PRIMARY CLINICAL RECORDS. [employer] provides no warranty or guarantee of the accuracy or completeness of information in this document.
[2023-11-21 11:32] LABS: Results Report
[2023-11-21 11:38] LABS: Insulin Dep Diabetes No
[2023-11-21 11:39] LABS: OSBR Risk 1 IN 10000
== END 2023-09-27 12:37 | disposition home or self-care (01) ==
LOC: US 12:36
PROVIDERS: PCP Nurse Practitioner Family; Visit Provider Obstetrics & Gynecology
DX: Z34.92 Encounter for supervision of normal pregnancy, unspecified, second trimester (principal); Z36.1 Encounter for antenatal screening for raised alphafetoprotein level; Z3A.20 20 weeks gestation of pregnancy
CPT/HCPCS: 36415; 76805; 76817; 82105

== ENCOUNTER 2023-12-15 11:21 | Observation (INO) | payer OTHER, SELFPAY ==
[2023-12-15 11:38] VITALS: BP 123/57; PULSE 66
[2023-12-15 11:40] VITALS: TEMP 35.6
--- OUTSIDE RECORDS SUMMARY | 2023-12-15 11:40 | XMS_ITS | CCD ---
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 Name Role Phone JOSE ., LITA Admitting [...] Unavailable PAY ., DR NELSON Consulting Unavailable Unavailable Primary Care Provider UnavailNIRAJ Carrillo Attending Unavailable JESSICA, BELKIS Attending Unavailable JESSICA, BELKIS Attending Unavailable JESSICA, BELKIS Attending Unavailable JESSICA, BELKIS Attending Unavailable JESSICA, BELKIS Attending Unavailable Allergies Allergy Classification Reported Allergen(s) Allergy Type Date of Onset Reaction(s) Facility (1 source) Ibuprofen Drug Allergy 01-15-2016 [facility] (2 sources) Ibuprofen Drug Allergy 07-10-2023 Unknown [facility] Work Phone: Medications Current Medications Medication Drug Class(es) Dates Sig (Normalized) Sig (Original) omeprazole 20 mg delayed release oral capsule (2 sources) Proton Pump Inhibitor Start: 09-22-2023 End: 09-21-2024 take 1 capsule by mouth before mealtime omeprazole (PriLOSEC) [address] mack Indications: Heartburn Take 1 capsule (20 mg) by mouth in the morning. Take before meals. Do not crush or chew.. 30 capsule 11 09/22/2023 09/21/2024 Active ondansetron 4 mg disintegrating oral tablet (2 sources) Serotonin-3 Receptor Antagonist Start: 05-31-2023 take 1 tablet by mouth every six hours as needed for nausea and vomiting ondansetron ODT (Zofran-ODT) 4 MG disintegrating tablet Take 4 mg by mouth every 6 (six) hours if needed for nausea or vomiting. 0 05/31/2023 Active promethazine hydrochloride 12.5 mg oral tablet (2 sources) Phenothiazine Start: 07-10-2023 End: 10-08-2023 take 1 tablet by mouth every four hours promethazine (Phenergan) 12.5 MG tablet Indications: Nausea and vomiting during Take 1 tablet (12.5 mg) by mouth every 4 (four) hours. 180 tablet 1 07/10/2023 10/08/2023 Active Problems Active Problems Problem Classification Problem Date Documented Da te Episodic/Chronic Administrative/social admission (4 sources) Encounter for other administrative examinations; Translations: [ENCOUNTER OTH ADMIN EXAMINATIONS] Onset: 10-30-2022 Episodic Headache; including migraine (4 sources) Headache; including migraine; Translations: [HEADACHE UNSPECIFIED] Onset: 06-21-2022 Immunizations and screening for infectious disease (2 sources) Encounter for screening for human papillomavirus (HPV); Translations: [Exposure to sexually transmissible disorder] Onset: 04-09-2022 09-18-2023 Episodic Other gastrointestinal disorders (1 source) Heartburn; Translations: [Heartburn] 09-22-2023 Episodic Other and delivery including normal (1 source) Second trimester ; Translations: [Encounter for supervision of normal , unspecified, second trimester] 09-18-2023 Episodic Other screening for suspected conditions (not mental disorders or infectious disease) (6 sources) Encounter for screening for malignant neoplasm of cervix; Translations: [Alpha-fetoprotein blood test status] Onset: 04-08-2022 Episodic Unclassified (1 source) CONTACT W/AND (SUSP) EXPOS COVID-19; Translations: [CONTACT W/AND (SUSP) EXPOS COVID-19] Onset: 01-08-2022 Past or Other Problems Problem Classification Problem Date Documented Da te Episodic/Chronic Abdominal pain (1 source) Unspecified abdominal pain; Translations: [UNSPECIFIED ABDOMINAL PAIN] Onset: 06-25-2022 Episodic Fluid and electrolyte disorders (1 source) Dehydration; Translations: [DEHYDRATION] Onset: 01-08-2022 Episodic Nausea and vomiting (4 sources) Nausea with vomiting, unspecified; Translations: [NAUSEA WITH VOMITING UNSPECIFIED] Onset: 01-06-2022 Episodic Results Test Name Value Interpretation Reference Range Facility IGP,APTIMA HPV,AGE GDLNon AGE GDLN ACOG TESTING Note . [facility] Comment on above: TESTS RESULT FLAG U NITS REF RANGE LAB Clinician Provided Cytology Information Source.............Cervix Other.............. No. of containers..01 ThinPrep Vial Age Algo ACOG Bina... FLAG LEGEND: L-Low Normal,H-High Normal,LL-Alert Low,HH-Alert High <-Panic Low,>-Panic High,A-Abnormal,AA-Critical Abnormal Performed at: 01 =G [address] [id number] Lali Holloway MD, IGP, RFX APTIMA HPV ASCU Note . [facility] Comment on above: TESTS RESULT FLAG UN ITS REF RANGE LAB DIAGNOSIS: 02 NEGATIVE FOR INTRAEPITHELIAL LESION OR MALIGNANCY. Specimen adequacy: 02 Satisfactory for evaluation. No endocervical component is identified. An endocervical component is not commonly seen in the patient. Performed by: 02 Kieran Pickering, Bounty Hunter ([facility]) . 02 Note: Note 02 The Pap [...] <-Panic Low,>-Panic High,A-Abnormal,AA-Critical Abnormal Performed at: [address] [facility] [address] [place] [address] Lali Holloway MD, Performed at: =G - [facility] [address] [id number] Art Conservator: Lali Holloway MD, Phone: [phone] Performed at: [facility] [address] [id number] Art Conservator: Lali Holloway MD, Phone: [phone] [facility] Urinalysis macro (dipstick) panel (U)on 09-22-2023 Bilirubin, UA Negative Negative - 4(70) +++ mg/dL [facility] Blood, UA Negative Negative - 50 Flash/mcL [facility] Clarity, UA Clear [facility] Color, UA Yellow [facility] Glucose, UA Negative Negative - 1999(110) ++++ mg/dL [facility] Interpretation and review of laboratory results [facility] Ketones, UA Positive Negative - 160(16) ++++ mg/dL [facility] Leukocytes, UA Negative Negative - 500+++ Taylor/mcL [facility] Nitrite, UA Negative Negative - Positive [facility] pH, UA 5.5 5 - 9 [facility] Protein, UA Negative Negative - 1999(20) ++++ mg/dL [facility] Spec Grav, UA 1.020 1 - 1.03 [facility] Urobilinogen, UA 0.2 0.2 - 12 mg/dL [facility] COMPLIANCE DRUG SCREENon PDF . Normal [facility] Comment on above: Performed By: #### U RCX #### [facility] [address] [address] [address] Tisha Carr Summary FINAL Normal [facility] Comment on above: Result Comment: = TOXASSURE COMP DRUG ANALYSIS,UR = Test Result Flag Units Drug Present not [...] test is not intended to distinguish between zalwd-5-gghufywhrdwdpdddejhn, the predominant form of THC in most herbal or marijuana-based products, and egixd-0-foiaoydfiosshrdoydzp. Methylphenidate PRESENT UNEXPECTED Ritalinic Acid PRESENT UNEXPECTED Source of methylphenidate is a scheduled prescription medication. Ritalinic acid is an expected metabolite of methylphenidate. Diphenhydramine PRESENT UNEXPECTED Drug Absent but Declared for Prescription Verification Amphetamine Not Detected UNEXPECTED ng/mg creat = Test Result Flag Units Ref Range Creatinine 209 mg/dL >=20 = Declared Medications: The flagging and interpretation on this report are based on the following declared medications. Unexpected results may arise from inaccuracies in the declared medications. Note: The testing scope of this panel includes these medications: Amphetamine (Adderall) = For clinical consultation, please call . = Performed By: #### U RCX #### [facility] [address] [place] [address] Dr. Tisha Carr URIC ACID RAND URINEon 10-31 Uric Acid, Urine 67.3 mg/dL Normal Not Estab. [facility] Comment on above: Performed By: #### U RCX #### [facility] [address] [address] [address] Tisha Carr DRUG SCREEN RAPID (URINE)on 10-30-2022 AMP Negative Normal NEGATIVE [facility] Comment on above: Performed By: #### U RCX #### [facility] [address] [address] [address] Tisha Carr BAR Negative Normal NEGATIVE [facility] Comment on above: Performed By: #### U RCX #### [facility] [address] [place] [address] Dr. Tisha Carr BUP Negative Normal NEGATIVE [facility] Comment on above: Performed By: #### U RCX #### [facility] [address] [place] [address] Dr. Tisha Carr BZO Negative Normal NEGATIVE [facility] Comment on above: Performed By: #### U RCX #### [facility] [address] [place] [address] Dr. Tisha Carr SOCRATES Negative Normal NEGATIVE [facility] Comment on above: Performed By: #### U RCX #### [facility] [address] [place] [address] Dr. Tisha Carr CUT-OFFS SEE BELOW Normal [facility] Comment on above: Result Comment: AMP [...] ng/mL Performed By: #### U RCX #### [facility] [address] [address] [address] Tisha Carr DRUG CUT HEADER DRUG CLASS TEST SYST EM CUT-OFF CONCENTRATIONS ARE FOLLOWS: Normal [facility] Comment on above: Performed By: #### U RCX #### [facility] [address] [address] [address] Tisha Carr mAMP Negative Normal NEGATIVE [facility] Comment on above: Performed By: #### U RCX #### [facility] [address] [address] [address] Tisha Carr MTD Negative Normal NEGATIVE [facility] Comment on above: Performed By: #### U RCX #### [facility] [address] [address] [address] Tisha Carr OPI Negative Normal NEGATIVE [facility] Comment on above: Performed By: #### U RCX #### [facility] [address] [place] [address] Dr. Tisha Carr OXY Negative Normal NEGATIVE [facility] Comment on above: Performed By: #### U RCX #### [facility] [address] [address] [address] Tisha Carr PCP Negative Normal NEGATIVE [facility] Comment on above: Performed By: #### U RCX #### [facility] [address] [place] [address] Dr. Tisha Carr PPX Negative Normal NEGATIVE [facility] Comment on above: Performed By: #### U RCX #### [facility] [address] [address] [address] Tisha Carr TCA Negative Normal NEGATIVE [facility] Comment on above: Performed By: #### U RCX #### [facility] [address] [address] [address] Tisha Carr THC Positive Abnormal NEGATIVE [facility] Comment on above: Performed By: #### U RCX #### [facility] [address] [place] [address] Dr. Tisha Carr CBC AUTO DIFFon 06-21-2022 BASO # 0.0 103/ul Normal 0.0-0.1 [facility] Comment on above: Performed By: #### U RCX #### [facility] [address] [address] [address] Tisha Carr Basophils/100 WBC (Bld) 0.2 % Normal 0.2-2.0 [facility] Comment on above: Performed By: #### U RCX #### [facility] [address] [place] [address] Dr. Tisha Carr EO # 0.0 103/ul Normal 0.0-0.7 [facility] Comment on above: Performed By: #### U RCX #### [facility] [address] [place] [address] Dr. Tisha Carr Eosinophils/100 WBC (Bld) 0.2 % Critically low 0.9-7.0 [facility] Comment on above: Performed By: #### U RCX #### [facility] [address] [place] [address] Dr. Tisha Carr Erythrocyte distribution width (RBC) [Ratio] 12.3 % Normal 11.0-15.0 [facility] Comment on above: Performed By: #### U RCX #### [facility] [address] [place] [address] Dr. Tisha Carr Hematocrit (Bld) [Volume fraction] 43.1 % Normal 36.0-48.0 [facility] Comment on above: Performed By: #### U RCX #### [facility] [address] [place] [address] Dr. Tisha Carr Hemoglobin (Bld) [Mass/Vol] 15.1 g/dL Normal 12.0-16.0 [facility] Comment on above: Performed By: #### U RCX #### [facility] [address] [place] [address] Dr. Tisha Carr IG # 0.06 10e3/ul Critically high 0.00-0.03 [facility] Comment on above: Performed By: #### U RCX #### [facility] [address] [place] [address] Dr. Tisha Carr IG % 0.5 % Normal 0.0-0.5 [facility] Comment on above: Performed By: #### U RCX #### [facility] [address] [address] [address] Tisha Carr LYMPH # 1.0 103/ul Critically low 1.2-3.8 [facility] Comment on above: Performed By: #### U RCX #### [facility] [address] [place] [address] Dr. Tisha Carr Lymphocytes/100 WBC (Bld) 8.2 % Critically low 20.5-60.0 [facility] Comment on above: Performed By: #### U RCX #### [facility] [address] [place] [address] Dr. Tisha Carr MANUAL DIFF REQ NO Normal [facility] Comment on above: Performed By: #### U RCX #### [facility] [address] [place] [address] Dr. Tisha Carr MCH (RBC) [Entitic mass] 30.3 pg Normal 26.7-34.0 [facility] Comment on above: Performed By: #### U RCX #### [facility] [address] [place] [address] Dr. Tisha Carr MCHC (RBC) [Mass/Vol] 35.0 g/dL Normal 29.9-35.2 [facility] Comment on above: Performed By: #### U RCX #### [facility] [address] [place] [address] Dr. Tisha Carr MCV (RBC) [Entitic vol] 86.4 fL Normal 81.0-99.0 [facility] Comment on above: Performed By: #### U RCX #### [facility] [address] [place] [address] Dr. Tisha Carr MONO # 0.8 103/ul Normal 0.3-0.8 [facility] Comment on above: Performed By: #### U RCX #### [facility] [address] [place] [address] Dr. Tisha Carr Monocytes/100 WBC (Bld) 6.0 % Normal 1.7-12.0 [facility] Comment on above: Performed By: #### U RCX #### [facility] [address] [address] [address] Tisha Carr NEUT # 10.8 103/ul Critically high 1.4-6.5 [facility] Comment on above: Performed By: #### U RCX #### [facility] [address] [address] [address] Tisha Carr Neutrophils/100 WBC (Bld) 84.9 % Critically high 43.0-75.0 [facility] Comment on above: Performed By: #### U RCX #### [facility] [address] [address] [address] Tisha Carr Platelet mean volume (Bld) [Entitic vol] 10.8 fL Normal 9.5-13.5 [facility] Comment on above: Performed By: #### U RCX #### [facility] [address] [address] [address] Tisha Carr PLT 237 103/ul Normal 150-450 [facility] Comment on above: Performed By: #### U RCX #### [facility] [address] [place] [address] Dr. Tisha Carr RBC 4.99 106/ul Normal 4.20-5.40 [facility] Comment on above: Performed By: #### U RCX #### [facility] [address] [address] [address] Tisha Carr WBC 12.7 103/ul Critically high 4.0-11.0 [facility] Comment on above: Performed By: #### U RCX #### [facility] [address] [address] [address] Tisha Carr CRPon 06-21-2022 CRP 10.0 mg/dL Critically high <=1.0 [facility] Comment on above: Performed By: #### C RP, CMP, LIPA #### [facility] [address] [address] [address] Tisha Carr ER URINE PROFILEon 10-28-202 2 Bilirubin Ql (U) SMALL Abnormal NEGATIVE [facility] Comment on above: Performed By: #### E RUR, UMICRO, PREGU #### [facility] [address] [place] [address] Dr. Tisha Carr Clarity (U) CLEAR Normal CLEAR [facility] Comment on above: Performed By: #### E RUR, UMICRO, PREGU #### [facility] [address] [address] [address] Tisha Carr Color (U) YELLOW Normal YELLOW [facility] Comment on above: Performed By: #### E RUR, UMICRO, PREGU #### [facility] [address] [address] [address] Tisha QUEZADA A micrscopic examina tion will be performed if indicated. Normal [facility] Comment on above: Performed By: #### E RUR, UMICRO, PREGU #### [facility] [address] [place] [address] Dr. Tisha Carr Glucose Ql (U) Negative Normal NEGATIVE [facility] Comment on above: Performed By: #### E RUR, UMICRO, PREGU #### [facility] [address] [place] [address] Dr. Tisha aCrr Hemoglobin Ql (U) MODERATE Abnormal NEGATIVE [facility] Comment on above: Performed By: #### E RUR, UMICRO, PREGU #### [facility] [address] [address] [address] Tisha Carr Ketones Ql (U) 80 mg/dl Abnormal NEGATIVE [facility] Comment on above: Performed By: #### E RUR, UMICRO, PREGU #### [facility] [address] [address] [address] Tisha Carr LEUKOCYTES Negative Normal NEGATIVE [facility] Comment on above: Performed By: #### E RUR, UMICRO, PREGU #### [facility] [address] [address] [address] Tisha Carr Nitrite Ql (U) Negative Normal NEGATIVE [facility] Comment on above: Performed By: #### E YULY CUMMINS, PREGU #### [facility] [address] [place] [address] Dr. Tisha Carr pH (U) 6.0 [pH] Normal 5-9 [facility] Comment on above: Performed By: #### E YULY CUMMINS, PREGU #### [facility] [address] [place] [address] Dr. Tisha Carr SPEC GRAVITY 1.025 Normal 1.005-<=1.025 [facility] Comment on above: Performed By: #### E RULEIGH LeoneICELLE, PREGU #### [facility] [address] [place] [address] Dr. Tisha Carr UA PROTEIN TRACE Normal NEGATIVE/ TRACE [facility] Comment on above: Performed By: #### YULY BRYANT, PREGU #### [facility] [address] [place] [address] Dr. Tisha Carr UR MICRO IND INDICATED Normal [facility] Comment on above: Performed By: #### YULY BRYANT, PREGU #### [facility] [address] [place] [address] Dr. Tisha Carr Urobilinogen Qn (U) 1.0 {Alma'U}/dL Normal 0.2 - 1.0 [facility] Comment on above: Performed By: #### YULY BRYANT, PREGU #### [facility] [address] [place] [address] Dr. Tisha Carr LACTATE/LACTIC ACIDon 2021 Lactate [Moles/Vol] 1.0 mmol/L Normal 0.4-1.9 [facility] Comment on above: Performed By: #### U RCX #### [facility] [address] [place] [address] Dr. Tisha Carr LIPASEon 06-21-2022 Lipase [Catalytic activity/Vol] 41.0 U/L Critically low 73.0-393.0 [facility] Comment on above: Performed By: #### C RP, CMP, LIPA #### [facility] [address] [address] [address] Tisha Carr URon 06-21-2022 , QUAL Negative Normal NEGATIVE [facility] Comment on above: Performed By: #### E RUR, UMICRO, PREGU #### [facility] [address] [address] [address] Tisha Carr PROF 14(COMP METB)on 022 Albumin [Mass/Vol] 4.0 g/dL Normal 3.4-5.0 [facility] Comment on above: Performed By: #### C RP, CMP, LIPA #### [facility] [address] [address] [address] Tisha Carr Albumin/Globulin [Mass ratio] 1.0 {ratio} Normal [facility] Comment on above: Performed By: #### C RP, CMP, LIPA #### [facility] [address] [address] [address] Tisha Carr ALP [Catalytic activity/Vol] 74 U/L Normal 46-116 [facility] Comment on above: Performed By: #### C RP, CMP, LIPA #### [facility] [address] [address] [address] Tisha Carr ALT [Catalytic activity/Vol] 33 U/L Normal 14-59 [facility] Comment on above: Performed By: #### C RP, CMP, LIPA #### [facility] [address] [address] [address] Tisha Carr Anion gap [Moles/Vol] 15.8 mmol/L Normal [facility] Comment on above: Performed By: #### C RP, CMP, LIPA #### [facility] [address] [address] [address] Tsiha Carr AST [Catalytic activity/Vol] 17 U/L Normal 15-37 [facility] Comment on above: Performed By: #### C RP, CMP, LIPA #### [facility] [address] [address] [address] Tisha Carr Bilirubin [Mass/Vol] 1.3 mg/dL Critically high 0.2-1.0 [facility] Comment on above: Performed By: #### C RP, CMP, LIPA #### [facility] [address] [place] [address] Dr. Tisha Carr Calcium [Mass/Vol] 9.2 mg/dL Normal 8.5-10.1 [facility] Comment on above: Performed By: #### C RP, CMP, LIPA #### [facility] [address] [place] [address] Dr. Tisha Carr Chloride [Moles/Vol] 102 mmol/L Normal 98-107 [facility] Comment on above: Performed By: #### C RP, CMP, LIPA #### [facility] [address] [place] [address] Dr. Tisha Carr CO2 [Moles/Vol] 22.7 mmol/L Normal 21.0-32.0 [facility] Comment on above: Performed By: #### C RP, CMP, LIPA #### [facility] [address] [place] [address] Dr. Tisha Carr Creatinine [Mass/Vol] 0.70 mg/dL Normal 0.55-1.02 [facility] Comment on above: Performed By: #### C RP, CMP, LIPA #### [facility] [address] [place] [address] Dr. Tisha Carr EGFR-AF SAO TOMEAN >60 Normal >=60 [facility] Comment on above: Performed By: #### C RP, CMP, LIPA #### [facility] [address] [place] [address] Dr. Tisha Carr EGFR-NON AF SAO TOMEAN >60 Normal >=60 [facility] Comment on above: Performed By: #### C RP, CMP, LIPA #### [facility] [address] [place] [address] Dr. Tisha Carr Globulin (S) [Mass/Vol] 4.2 g/dL Normal [facility] Comment on above: Performed By: #### C RP, CMP, LIPA #### [facility] [address] [place] [address] Dr. Tisha Carr Glucose [Mass/Vol] 93 mg/dL Normal 74-106 [facility] Comment on above: Performed By: #### C RP, CMP, LIPA #### [facility] [address] [place] [address] Dr. Tisha Carr Potassium [Moles/Vol] 3.5 mmol/L Normal 3.5-5.1 [facility] Comment on above: Performed By: #### C RP, CMP, LIPA #### [facility] [address] [place] [address] Dr. Tisha Carr Protein [Mass/Vol] 8.2 g/dL Normal 6.4-8.2 [facility] Comment on above: Performed By: #### C RP, CMP, LIPA #### [facility] [address] [place] [address] Dr. Tisha Carr Sodium [Moles/Vol] 137 mmol/L Normal 136-145 [facility] Comment on above: Performed By: #### C RP, CMP, LIPA #### [facility] [address] [place] [address] Dr. Tisha Carr Urea nitrogen [Mass/Vol] 16.0 mg/dL Normal 7.0-18.0 [facility] Comment on above: Performed By: #### C RP, CMP, LIPA #### [facility] [address] [place] [address] Dr. Tisha Carr Urea nitrogen/Creatinin e [Mass ratio] 22.9 mg/mg Normal [facility] Comment on above: Performed By: #### C RP, CMP, LIPA #### [facility] [address] [place] [address] Dr. Tisha Carr URINE MICROSCOPIC ONLYon BACTERIA TRACE Abnormal NONE SEEN [facility] Comment on above: Performed By: #### E YULY CUMMINS PREGU #### [facility] [address] [place] [address] Dr. Tisha Carr Bacteria identified Cx Nom (U) NOT INDICATED Normal [facility] Comment on above: Performed By: #### YULY BRYANT PREGU #### [facility] [address] [address] [address] Tisha Carr CAST NONE SEEN Normal NONE SEEN [facility] Comment on above: Performed By: #### YULY BRYANT, PREGU #### [facility] [address] [address] [address] Tisha Carr Crystals LM Nom (Urine sed) NONE SEEN Normal NONE SEEN [facility] Comment on above: Performed By: #### YULY BRYANT, PREGU #### [facility] [address] [address] [address] Tisha Carr Epithelial cells LM Ql (Urine sed) MODERATE Abnormal NONE SEEN /RARE [facility] Comment on above: Performed By: #### YULY BRYANT, PREGU #### [facility] [address] [place] [address] Dr. Tisha Carr MUCOUS MODERATE Abnormal NONE SEEN [facility] Comment on above: Performed By: #### YULY BRYANT, PREGU #### [facility] [address] [address] [address] Tisha Carr RBC 0-2 Normal 0-2 [facility] Comment on above: Performed By: #### YULY BRYANT, PREGU #### [facility] [address] [place] [address] Dr. Tisha Carr WBC 0-2 Abnormal NONE SEEN [facility] Comment on above: Performed By: #### YULY BRYANT, PREGU #### [facility] [address] [place] [address] Dr. iTsha Carr PAP ACOG PANEL 2: 21 to 29on 04-11-2022 . . Normal [facility] Comment on above: Performed By: #### U RCX #### [facility] [address] [address] [address] Tisha Carr Age Gdln ACOG Testing 21-29 Normal [facility] Comment on above: Performed By: #### U RCX #### [facility] [address] [place] [address] Dr. Tisha Carr DIAGNOSIS: Comment Normal [facility] Comment on above: Result Comment: NEGA TIVE FOR INTRAEPITHELIAL LESION OR MALIGNANCY. FUNGAL ORGANISMS MORPHOLOGICALLY CONSISTENT WITH SHEREE SPECIES ARE PRESENT. Performed By: #### U RCX #### [facility] [address] [place] [address] Dr. Tisha Carr Methodology: Comment Normal [facility] Comment on above: Result Comment: This liquid based ThinPrep(R) pap test was screened with the use of an image guided system. Performed By: #### U RCX #### [facility] [address] [place] [address] Dr. Tisha Carr Note: Comment Normal [facility] Comment on above: Result Comment: The Pap smear is a screening test designed to aid in the detection of premalignant and malignant conditions of the uterine cervix. It is not a diagnostic procedure and should not be used as the sole means of detecting cervical cancer. Both false-positive and false-negative reports do occur. . Performed By: #### U RCX #### [facility] [address] [place] [address] Dr. Tisha Carr Performed by: Comment Normal [facility] Comment on above: Result Comment: Caleb Schaeffer, Bounty Hunter (ASCP) Performed By: #### U RCX #### [facility] [address] [place] [address] Dr. Tisha Carr Reflex Criteria: Comment [facility] Comment on above: Result Comment: The HPV DNA reflex criteria were not met with this specimen result therefore, no HPV testing was performed. . Performed By: #### U RCX #### [facility] [address] [place] [address] Dr. Tisha Carr Specimen adequacy: Comment Normal [facility] Comment on above: Result Comment: Sati sfactory for evaluation. Endocervical and/or squamous metaplastic cells (endocervical component) are present. Performed By: #### U RCX #### [facility] [address] [place] [address] Dr. Tisha Carr CULTURE URINEon 01-08-2022 CULTURE [...] <=0.12 S F Nitrofurantoin <=16 S F Trimethoprim/Sulfamethox azole <=20 S F Normal [facility] Comment on above: Performed By: #### U RCX #### [facility] [address] [place] [address] [address] [address] Tisha Carr Covid-19 PCR (CVDTB)on 12-23 SARS-CoV-2 (COVID-19) RNA OC+probe Ql (Unsp spec) Not detected Normal NOT DETECTED [facility] Comment on above: Result Comment: This test is not yet approved or cleared by the [place] FDA. When there are no FDA-approved or cleared tests available, and other criteria are met, FDA can make tests available under an emergency access mechanism called an Emergency Use Authorization (EUA). The EUA for this test is supported by the [place] of Health and Human Service's (HHS's) declaration [...] SARS-CoV-2. Performed By: #### C VDTBH #### [facility] [address] [place] [address] [address] [address] Tisha Carr ER URINE PROFILEon 2 Bilirubin Ql (U) MODERATE Abnormal NEGATIVE [facility] Comment on above: Performed By: #### E RUR, UMICRO, PREGU #### [facility] [address] [address] [address] Tisha Carr Clarity (U) CLEAR Normal CLEAR [facility] Comment on above: Performed By: #### E RUR, UMICRO, PREGU #### [facility] [address] [address] [address] Tisha Carr Color (U) DK. YELLOW Normal YELLOW [facility] Comment on above: Performed By: #### E RUR, UMICRO, PREGU #### [facility] [address] [address] [address] Tisha Carr ERUSHAGGYD A micrscopic examina tion will be performed if indicated. Normal [facility] Comment on above: Performed By: #### E RUR, UMICRO, PREGU #### [facility] [address] [address] [address] Tisha Carr Glucose Ql (U) Negative Normal NEGATIVE [facility] Comment on above: Performed By: #### E RUR, UMICRO, PREGU #### [facility] [address] [address] [address] Tisha Carr Hemoglobin Ql (U) Negative Normal NEGATIVE [facility] Comment on above: Performed By: #### E RUR, UMICRO, PREGU #### [facility] [address] [address] [address] Tisha Carr Ketones Ql (U) >=80 Abnormal NEGATIVE [facility] Comment on above: Performed By: #### E RUR, UMICRO, PREGU #### [facility] [address] [address] [address] Tisha Carr LEUKOCYTES TRACE Abnormal NEGATIVE [facility] Comment on above: Performed By: #### E RUR, UMICRO, PREGU #### [facility] [address] [address] [address] Tisha Carr Nitrite Ql (U) Negative Normal NEGATIVE [facility] Comment on above: Performed By: #### E RUR, UMICRO, PREGU #### [facility] [address] [place] [address] Dr. Tisha Carr pH (U) 6.0 [pH] Normal 5-9 [facility] Comment on above: Performed By: #### YULY BRYANT, PREGU #### [facility] [address] [place] [address] Dr. Tisha Carr Protein (U) [Mass/Vol] 100 mg/dL Abnormal NEGATIVE/ TRACE [facility] Comment on above: Performed By: #### YULY BRYANT, PREGU #### [facility] [address] [place] [address] Dr. Tisha Carr SPEC GRAVITY 1.025 Normal 1.005-<=1.025 [facility] Comment on above: Performed By: #### YULY BRYANT, PREGU #### [facility] [address] [place] [address] Dr. Tisha Carr UR MICRO IND INDICATED Normal [facility] Comment on above: Performed By: #### YULY BRYANT, PREGU #### [facility] [address] [place] [address] Dr. Tisha Carr Urobilinogen Qn (U) 1.0 {Alma'U}/dL Normal 0.2 - 1.0 [facility] Comment on above: Performed By: #### YULY BRYANT, PREGU #### [facility] [address] [place] [address] Dr. Tisha Carr INFLUENZA A AND B AGon 01-06 INFLUANEGH SEE BELOW Normal [facility] Comment on above: Result Comment: Nega tive for Flu A protein angiten. Infection due to Flu A cannot be ruled out. Flu A angiten in the sample may be below the detection limit of the test. Performed By: #### U RCX #### [facility] [address] [place] [address] Dr. Tisha Carr INFLUBNEGH SEE BELOW Normal [facility] Comment on above: Result Comment: Nega tive for Flu B protein antigen. Infection due to Flu B cannot be ruled out. Flu B antigen in the sample may be below the detection limit of the test. Performed By: #### U RCX #### [facility] [address] [place] [address] Dr. Tisha Carr INFLUENZA A AG Negative Normal NEGATIVE SEE COMMENT [facility] Comment on above: Performed By: #### U RCX #### [facility] [address] [address] [address] Tisha Crar INFLUENZA B AG Negative Normal NEGATIVE SEE COMMENT [facility] Comment on above: Performed By: #### U RCX #### [facility] [address] [place] [address] Dr. Tisha Carr INTERNAL CONTROLS Within Normal Limits Normal Wi thin Normal Limits [facility] Comment on above: Performed By: #### U RCX #### [facility] [address] [place] [address] Dr. Tisha Carr URon 01-06-2022 , QUAL Negative Normal NEGATIVE [facility] Comment on above: Performed By: #### E RUR, UMICRO, PREGU #### [facility] [address] [place] [address] Dr. iTsha Carr URINE MICROSCOPIC ONLYon BACTERIA SMALL Abnormal NONE SEEN [facility] Comment on above: Performed By: #### U RCX #### [facility] [address] [place] [address] Dr. Tisha Carr Bacteria identified Cx Nom (U) INDICATED Normal [facility] Comment on above: Performed By: #### U RCX #### [facility] [address] [place] [address] Dr. Tisha Carr CAST NONE SEEN Normal NONE SEEN [facility] Comment on above: Performed By: #### U RCX #### [facility] [address] [place] [address] Dr. Tisha Carr Crystals LM Nom (Urine sed) NONE SEEN Normal NONE SEEN [facility] Comment on above: Performed By: #### U RCX #### [facility] [address] [place] [address] Dr. Tisha Carr Epithelial cells LM Ql (Urine sed) MANY Abnormal NONE SEEN /RARE [facility] Comment on above: Performed By: #### U RCX #### [facility] [address] [place] [address] Dr. Tisha Carr MUCOUS LARGE Abnormal NONE SEEN [facility] Comment on above: Performed By: #### U RCX #### [facility] [address] [address] [address] Tisha Carr RBC NONE SEEN Abnormal 0-2 [facility] Comment on above: Performed By: #### U RCX #### [facility] [address] [address] [address] Tisha Carr WBC 5-10 Abnormal NONE SEEN [facility] Comment on above: Performed By: #### U RCX #### [facility] [address] [place] [address] Dr. Tisha Carr Vital Signs Date Time Vital Sign Value Performing Clinician Faci lity 09-22-2023 16:01-0500 Body weight 89.09 kg Belkis Jessica DO Work Phone: [facility] 09-22-2023 16:01-0500 Diastolic blood pressure 70 mm[Hg] Belkis Jessica DO Work Phone: [facility] 09-22-2023 16:01-0500 Systolic blood pressure 120 mm[Hg] Belkis Jessica DO Work Phone: [facility] Healthcare Encounters Encounter Date Encounter Type Care Provider Facility Start: 12-02-2023 End: 12-02-2023 ambulatory BELKIS JESSICA Not Available Start: 11-17-2023 End: 11-17-2023 ambulatory BELKIS JESSICA Not Available Start: 10-20-2023 End: 10-20-2023 ambulatory BELKIS JESSICA Not Available Start: 09-22-2023 End: 09-22-2023 ambulatory BELKIS JESSICA Not Available Start: 09-22-2023 End: 09-22-2023 Patient encounter procedure Belkis Jessica DO Work Phone: [facility] Start: 09-22-2023 End: 09-22-2023 Periodic preventive med est patient 18-39 yrs Belkis Jessica DO Work Phone: [facility] Comment on above: Second trimester pre gnancy; Well woman exam with routine gynecological exam; Exposure to STD; Need for maternal serum alpha-protein (MSAFP) screening; Screening, , for anatomic survey; Heartburn Start: 09-22-2023 Clinisync Result Encounter Belkis Lopez DO Work Phone: [facility] Unsolicited Start: 09-22-2023 Clinisync Result Encounter Belkis Lopez DO Work Phone: [facility] Unsolicited [...] 01-06-2022 End: 01-06-2022 ambulatory LITA GARCIA . Facility: Procedures Date Procedure Procedure Detail Performing Clinician Start: 09-22-2023 Urnls dip stick/tabl et rgnt non-auto w/o micrscp Belkisdora Yateso DO Work Phone: Start: 09-22-2023 IGP,APTIMA HPV,AGE GDLN Belkis Lopez DO Work Phone: Plan of Treatment Date Care Activity Detail Author Start: 10-20-2023 End: 10-20-2023 Patient encounter procedure 10/20/2023 3:10 PM EST Routine [facility] [address] [place] [id number] Belkis Lopez, DO [address] [place] [address] [facility] Start: 09-22-2023 End: 09-22-2024 Alpha fetoprotein, maternal Alpha fetoprotein, maternal Lab Routine Second trimester Need for maternal serum alpha-protein (MSAFP) screening Expected: 09/22/2023 (Approximate), Expires: 09/22/2024 [facility] Comment on above: Expected: 09/22/2023 (Approximate), Expires: 09/22/2024 Start: 09-22-2023 End: 09-22-2024 US for US OB ANATOMY SINGLE W US OB CERVICAL LENGTH Imaging Routine Screening, , for anatomic survey Expected: 09/22/2023 (Approximate), Expires: 09/22/2024 [facility] Comment on above: Expected: 09/22/2023 (Approximate), Expires: 09/22/2024 CHLAMYDIA TRACHOMATI S (GENITO/STI) CHLAMYDIA TRACHOMATIS (GENITO/STI) Lab Routine Exposure to STD Ordered: 09/22/2023 [facility] Comment on above: Ordered: 09/22/2023 Cytology Cervical or vaginal smear or scraping study Pap Smear Pathology and Cytology Routine Well woman exam with routine gynecological exam Ordered: 09/22/2023 [facility] Comment on above: Ordered: 09/22/2023 Neisseria gonorrhoea e DNA [Presence] in Unspecified specimen by OC with probe detection Neisseria gonorrhea DNA probe, direct Lab Routine Exposure to STD Ordered: 09/22/2023 [facility] Comment on above: Ordered: 09/22/2023 SURESWAB(R) ADVANCED VAGINITIS PLUS, TMA SURESWAB(R) ADVANCED VAGINITIS PLUS, TMA Pathology and Cytology Routine Exposure to STD Ordered: 09/22/2023 [facility] Work Phone: Comment on above: Ordered: 09/22/2023 Payers Date Payer Category Payer Medicaid [employer] [place] [employer] [id number] 2021-Present [address] [place] [id number] 2000 Unknown [id number] 2000 Unknown [id number] 2000 Unknown [id number] 2000 Unknown [id number] 2000 Unknown [id number] 2000 Unknown [id number] 2000 Unknown [id number] 2000 Unknown [id number] [id number] 2000 Unknown [id number] 2000 Unknown [id number] [id number] 2000 Unknown [id number] 1959 Unknown [id number] Social History Date Type Detail Facility Tobacco smoking stat [facility] Tobacco smoking consumption unknown [facility] Start: 05-22-2023 [facility] Start: 2000 Sex Assigned At Female [facility] Start: 07-03-2023 Gender identity Identifies as female gender (finding) [facility] Sexual orientation Not on file [facility] History of Present illness Narrative 09-22-2023 Nora Riggs LPN - 09/22/2023 3:20 PM EST Note Date & Type Note Facility 09-22-2023 History of Presen t illness Narrative Reason for Appointment: Patient ID: Florencia Cano is a 23 y.o. female who presents for Routine Visit and Gynecologic Exam Patient presents today for Return OB appointment. Current Medications: has a current medication list which includes the following prescription(s): ondansetron odt, promethazine, and omeprazole. Medical History: Active Ambulatory Problems Diagnosis Date Noted No Active Ambulatory Problems Resolved Ambulatory Problems Diagnosis Date Noted No Resolved Ambulatory Problems Past Medical History: Diagnosis Date Asthma ([facility]) No family history on file. Social History Tobacco Use Smoking status: Not on file Smokeless tobacco: Not on file Substance Use Topics Alcohol use: Not on file Drug use: Not on file History reviewed. No pertinent surgical history. Allergies Allergen Reactions Motrin [Ibuprofen] Unknown Review of Systems: Review of Systems All other systems reviewed and are negative. Objective Physical Exam Constitutional: Appearance: Normal appearance. She is well-developed. Genitourinary: Vulva normal. Cardiovascular: Rate and Rhythm: Normal rate and regular rhythm. Pulmonary: Effort: Pulmonary effort is normal. Breath sounds: Normal breath sounds. Abdominal: General: Bowel sounds are normal. There is no distension. Palpations: Abdomen is soft. Tenderness: There is no abdominal tenderness. There is no guarding or rebound. Musculoskeletal: General: No swelling. Normal range of motion. Right lower leg: No edema. Left lower leg: No edema. Neurological: Mental Status: She is alert and oriented to person, place, and time. Skin: General: Skin is warm and dry. Psychiatric: Mood and Affect: Mood normal. Behavior: Behavior normal. Vitals and nursing note reviewed. Exam conducted with a stamp clerk present. Vitals: There is no height or weight on file to calculate BMI. BP: 120/70 Patient's last menstrual period was 05/01/2023. Assessment/Plan Encounter Diagnoses Name Primary? Second trimester Well woman exam with routine gynecological exam Exposure to STD Need for maternal serum alpha-protein (MSAFP) screening Screening, , for anatomic survey Heartburn Pt presents for annual and cultures exam during . Pt doing well with no complaints. Pap and cultures obtained without difficulty. Scipt sent today for Heartburn. Pt to return in 4 weeks for scheduled OB appt. Pt given msAFP order to have obtained. Documented by Nora Riggs LPN on behalf of: Belkis Lopez DO documented in this encounter [facility] Evaluation note Note Date & Type Note Facility Evaluation note Diagnosis Second trimester state, incidental Well woman exam with routine gynecological exam Routine gynecological examination Exposure to STD Need for maternal serum alpha-protein (MSAFP) screening Screening, , for anatomic survey Encounter for anatomic survey Heartburn documented in this encounter [facility] Summary Purpose Family History No Family History Records FoundNo Family History Records Found Advance Directives No Advanced Directives Records FoundNo Advanced Directives Records Found Additional Source Comments INFORMATION SOURCE (unrecogn ized section and content) DATE CREATED AUTHOR 11/07/2022 [facility] DATE CREATED AUTHOR AUTHOR'S ORGANIZ ATION 12/03/2023 [facility] EPIC Reason for Visit (unrecogniz ed section and content) Reason Comments Routine Visit Gynecologic Exam FOR RECORDS PERTAINING TO PATIENTS WHO ARE [...] BE BASED ON THE PRIMARY CLINICAL RECORDS. [facility] [employer] [facility]. provides no warranty or guarantee of the accuracy or completeness of information in this document.
[2023-12-15 11:51] LABS: Glucometer 159 mg/dL (74-106)
--- NOTE | 2023-12-15 12:05 | US_ITS ---
[address] [address] Patient Name: FLORENCIA NEELY MRN: [id number] date: 2000 Sex: F Assigned Patient Location: [facility] Current Patient Location: [facility] Accession/Order Number: [id number] Exam Date: 12/15/2023 13:45 Report Date: 12/15/2023 14:27 At the request of: BELKIS BRAND Procedure: US OB cervical length EXAM: US OB placenta, US OB cervical length HISTORY: ABDOMINAL PAIN COMPARISON: None. TECHNIQUE: Transabdominal images FINDINGS: Raymond intrauterine gestation position: Cephalic presentation, longitudinal lie Amniotic fluid volume: 17.6 cm, normal Largest fluid pocket: 6.5 cm The placenta is anterior, grade 1. No intraplacental or retroplacental echogenic abnormality. Cervix: Closed, 2.5 cm US/US OB cervical length IMPRESSION: Normal placenta Closed cervix measuring 2.5 cm in length Electronically authenticated by: LOUISE MOHAMUD Date: 12/15/2023 14:27
--- NOTE | 2023-12-15 12:06 | US_ITS ---
[address] [address] Patient Name: FLORENCIA NEELY MRN: [id number] date: 2000 Sex: F Assigned Patient Location: [facility] Current Patient Location: [facility] Accession/Order Number: [id number] Exam Date: 12/15/2023 13:45 Report Date: 12/15/2023 14:27 At the request of: BELKIS BRAND Procedure: US OB placenta EXAM: US OB placenta, US OB cervical length HISTORY: ABDOMINAL PAIN COMPARISON: None. TECHNIQUE: Transabdominal images FINDINGS: Raymond intrauterine gestation position: Cephalic presentation, longitudinal lie Amniotic fluid volume: 17.6 cm, normal Largest fluid pocket: 6.5 cm The placenta is anterior, grade 1. No intraplacental or retroplacental echogenic abnormality. Cervix: Closed, 2.5 cm US/US OB placenta IMPRESSION: Normal placenta Closed cervix measuring 2.5 cm in length Electronically authenticated by: LOUISE MOHAMUD Date: 12/15/2023 14:27
[2023-12-15 12:21] LABS: Bilirubin Urine NEGATIVE (NEGATIVE); Blood Urine NEGATIVE (NEGATIVE); Clarity Urine CLEAR (CLEAR); Color Urine YELLOW (YELLOW); Glucose Urine UA NEGATIVE (NEGATIVE); Ketones Urine >=80 mg/dL (NEGATIVE); Leukocyte Esterase Urine NEGATIVE (NEGATIVE); Nitrite Urine NEGATIVE (NEGATIVE); Protein Urine TRACE mg/dL (NEG/TRACE); Specific Gravity Urine >=1.030 (1.005-1.025); Urobilinogen Urine 0.2 EU/dL (0.2-1.0)
[2023-12-15 12:28] LABS: Urine Microscopic Indicated NO
[2023-12-15 13:02] LABS: Influenza Virus A Antigen Negative; Influenza Virus B Antigen Negative; Internal Control Within Normal Limits
[2023-12-15] MEDS: 0.9 % SODIUM CHLORIDE 1,000 ML 125 ML IV ×2 (13:32→19:10)
[2023-12-15] MEDS: ONDANSETRON PF 4 MG/2 ML VIAL IV ×2 (13:35→19:40)
[2023-12-15 13:38] LABS: Hematocrit 39.5 % (36.0-48.0); Hemoglobin 13.8 g/dL (12.0-16.0); Mean Corpuscular HGB Conc 34.9 g/dL (29.9-35.2); Mean Corpuscular Hemoglobin 29.4 pg (26.7-34.0); Mean Corpuscular Volume 84.2 fL (81.0-99.0); Mean Platelet Volume 11.7 fL (9.5-13.5); Platelet Count 239 10^3/uL (150-450); Red Blood Count 4.69 10^6/uL (4.20-5.40); Red Cell Distribution Width 12.5 % (11.0-15.0); White Blood Count 22.3 10^3/uL (4.0-11.0)
[2023-12-15 13:53] LABS: Alanine Aminotransferase 13 U/L (14-59); Albumin Globulin Ratio 0.7; Albumin Level 3.1 g/dL (3.4-5.0); Alkaline Phosphatase 112 U/L (46-116); Amylase 61 U/L (25-115); Anion Gap 17.4; Aspartate Amino Transferase 15 U/L (15-37); BUN Creatinine Ratio 25.4; Bilirubin Total 0.6 mg/dL (0.2-1.0); Calcium 9.5 mg/dL (8.5-10.1); Carbon Dioxide 21.9 mmol/L (21.0-32.0); Chloride 104 mmol/L (98-107); Estimated GFR (African America >60 (>=60); Estimated GFR (Non-African Ame >60 (>=60); Globulin 4.7 g/dL; Glucose 122 mg/dL (74-106); Potassium 4.3 mmol/L (3.5-5.1); Sodium 139 mmol/L (136-145); Total Protein 7.8 g/dL (6.4-8.2)
--- NOTE | 2023-12-15 14:12 | PC.NURSE ---
1135- patient arrives with and child tearful, clammy, cool to touch and complaints of abdominal pain and vomiting since 534, states she feels miserable. Pt. assisted with gown and urine sample. EFM and [place] applied, abdomen soft and mild tenderness to palpation, complains of upper abdominal pain 04/03. Pt. vomits small amount of bile colored emesis. Plan of care reviewed with patient and significant other, verbalizes understanding
[2023-12-15] MEDS: PROMETHAZINE HCL 25 MG in 0.9 % SODIUM CHLORIDE 50 ML 204 MG IV ×2 (14:16→21:02)
--- NOTE | 2023-12-15 14:16 | PC.NURSE ---
1215- 4 IV attempts without success, and well as lab draw without success, assistance requested for additional help
[2023-12-15 14:24] LABS: Lymphocytes Absolute Manual 0.66 10^3/uL (1.20-3.80); Monocytes Absolute Manual 0.22 10^3/uL (0.30-0.80)
--- NOTE | 2023-12-15 15:09 | PC.NURSE ---
1430 pt dozing on belly, spouse states she fell asleep after the phenergan and stating she was starting to feel better. No further vomiting
--- NOTE | 2023-12-15 16:12 | PC.NURSE ---
ambulates to room 251 with spouse and child, iv taped off and pt into shower-states still feels terrible, small vomit times one, scant amount stomach fluid
[2023-12-15] MEDS: CEFAZOLIN SODIUM/DEXTROSE,ISO 2 GM/50 ML PIGGYBACK IV (16:38)
[2023-12-15 16:45] VITALS: TEMP 36.1
[2023-12-15 16:46] VITALS: BP 110/55; PULSE 73
--- NOTE | 2023-12-15 16:54 | PC.NURSE ---
after showering pt states is pain free and starting to feel better-iv resumed and abx hung- vss 97.7-16, efm resumed and pt given ice chips and a popsicle
[2023-12-15 21:33] VITALS: BP 122/57; PULSE 93
[2023-12-15 22:01] VITALS: BP 122/57; PULSE 93; TEMP 36.8
[2023-12-15] MEDS: INSULIN NPH 70-30 100UNIT/ML VIAL (10ML) SUBQ (22:07)
[2023-12-16] MEDS: CEFAZOLIN SODIUM/DEXTROSE,ISO 1 GM/50 ML IV.SOLN IV ×2 (00:10→08:35)
[2023-12-16] MEDS: 0.9 % SODIUM CHLORIDE 1,000 ML 125 ML IV (03:58)
[2023-12-16 06:18] LABS: Basophils Percent Auto 0.1 % (0.2-2.0); Eosinophils Percent Auto 0.1 % (0.9-7.0); Hematocrit 32.9 % (36.0-48.0); Hemoglobin 10.7 g/dL (12.0-16.0); Immature Granulocytes Abs Auto 0.16 10^3/uL (0.00-0.03); Immature Granulocytes Pct Auto 0.9 % (0.0-0.5); Lymphocytes Absolute Auto 1.7 10^3/uL (1.2-3.8); Lymphocytes Percent Auto 9.5 % (20.5-60.0); Mean Corpuscular HGB Conc 32.5 g/dL (29.9-35.2); Mean Corpuscular Hemoglobin 28.8 pg (26.7-34.0); Mean Corpuscular Volume 88.7 fL (81.0-99.0); Mean Platelet Volume 11.6 fL (9.5-13.5); Monocytes Absolute Auto 1.1 10^3/uL (0.3-0.8); Neutrophils Absolute Auto 14.9 10^3/uL (1.4-6.5); Neutrophils Percent Auto 83.4 % (43.0-75.0); Platelet Count 224 10^3/uL (150-450); Red Blood Count 3.71 10^6/uL (4.20-5.40); Red Cell Distribution Width 12.6 % (11.0-15.0); White Blood Count 17.9 10^3/uL (4.0-11.0)
[2023-12-16 06:48] VITALS: BP 119/62; PULSE 69
[2023-12-16 06:53] LABS: Glucometer 104 mg/dL (74-106)
[2023-12-16 07:22] VITALS: BP 119/62; PULSE 69
--- NOTE | 2023-12-16 07:46 | PM.OBHP ---
OB - H&P: HPI History of Present Illness Chief complaint: VOMITING, ABDOMINLA PAIN : 2 Para: 1 Gestational age based on last menstrual period: 31 6/7wks Narrative: pt presented with flu like symptoms, nausea and vomiting, denies d,f,c pt had elevated wbc on admission 22.3, today its 17.6 pt states feel alot better, greatly improved History of Present Dating criteria: LMP confirmed by 1st trimester US care: good care Ultrasounds: normal 1st trimester US and normal mid trimester US Medical complications OB: none Review of Systems ROS Status of ROS: 10 or more systems reviewed and unremarkable except as noted in history and below PFSH PFSH Social History Smoking status: Never smoker Meds Home Medications and Allergies Home Medications ?Medication ?Instructions ?Recorded ?Confirmed ?Type ondansetron 4 mg disintegrating 4 mg PO Q6H PRN nausea and 05/31/23 Rx tablet vomiting #20 tabs insulin NPH isoph U-100 human 100 unit subcut 12/15/23 History unit/mL (3 mL) subcutaneous pen (Humulin N NPH U-100 Insulin KwikPen) Allergies Allergy/AdvReac Type Severity Reaction Status Date / Time ibuprofen [From Motrin] AdvReac Severe Vomiting Verified 05/31/23 13:45 Exam Constitutional Vital Signs, click to edit/add: Last Vital Signs Temp 98.2 F 12/15/23 22:01 Pulse 69 12/16/23 07:22 Resp 16 12/16/23 07:22 BP 119/62 12/16/23 07:22 O2 Del Method Room Air 12/16/23 07:22 Documenting provider has reviewed patient's vital signs: yes Common normals: no apparent distress Respiratory Common normals: clear to auscultation bilaterally Cardio Common normals: regular rate and regular rhythm GI Common normals: Normal to inspection, nondistended, normoactive bowel sounds present Extremity Common normals: no calf tenderness Results Labs Labs: Short CBC 12/15/23 12/16/23 Range/Units 13:20 05:54 WBC 22.3 H 17.9 H (4.0-11.0) 10^3/uL Hgb 13.8 10.7 L (12.0-16.0) g/dL Hct 39.5 32.9 L (36.0-48.0) % Plt Count 239 224 (150-450) 10^3/uL BMP 12/15/23 13:20 Sodium 139 Potassium 4.3 Chloride 104 Carbon Dioxide 21.9 BUN 16.0 Creatinine 0.63 Glucose 122 H Calcium 9.5 Liver Function 12/15/23 Range/Units 13:20 Total Bilirubin 0.6 (0.2-1.0) mg/dL AST 15 (15-37) U/L ALT 13 L (14-59) U/L Alkaline Phosphatase 112 (46-116) U/L Albumin 3.1 L (3.4-5.0) g/dL Urine 12/15/23 Range/Units 11:45 Urine Color Yellow (YELLOW) Urine Clarity Clear (CLEAR) Urine pH 6.0 (5.0-9.0) Ur Specific [place] >=1.030 A (1.005-1.025) Urine Protein Trace (NEG/TRACE) mg/dL Urine Glucose (UA) Negative (NEGATIVE) mg/dL OB - A/P Assessment and Plan (1) Flu-like symptoms: Assessment and Plan: iv hydration, iv abx, labs reviewed, antimemetic, monitor blood sugar, will dc home if able to hold down food after lunch (2) Nausea & vomiting: (3) : (4) Gestational diabetes mellitus:
[2023-12-16 08:35] VITALS: BP 116/63; PULSE 64; TEMP 36.3
[2023-12-16] MEDS: CALCIUM CARBONATE 500 MG (200MG ELEMENTAL) TAB CHEW 1000 MG PO (11:43)
== END 2023-12-16 13:30 | disposition home or self-care (01) ==
PROVIDERS: Admitting Provider Obstetrics & Gynecology; PCP Nurse Practitioner Family; Visit Provider Obstetrics & Gynecology
DX: O26.893 Other specified pregnancy related conditions, third trimester (principal); R11.2 Nausea with vomiting, unspecified; O24.414 Gestational diabetes mellitus in pregnancy, insulin controlled; Z3A.31 31 weeks gestation of pregnancy
CPT/HCPCS: 0202U; 36415; 59025; 76815; 76817; 80053; 81003; 82150; 82565; 82948; 83690; 85007; 85025; 85027; 86850; 86900; 86901; 87804; 96361; 96365; 96375; 96376; G0378; G0379

== ENCOUNTER 2023-12-20 01:45 | Outpatient (OUT) | payer OTHER, SELFPAY ==
--- OUTSIDE RECORDS SUMMARY | 2023-12-20 01:47 | XMS_ITS | CCD ---
Author Organization [facility] Care Team Providers Care Account Assistant Name Role Phone JOSE ., LITA Admitting [...] (1 source) Ibuprofen Drug Allergy 01-15-2016 [facility] Repository (2 sources) Ibuprofen Drug Allergy [...] GDLNon AGE GDLN ACOG TESTING Note . [facility] Comment on above: TESTS RESULT FLAG U NITS REF RANGE LAB Clinician Provided Cytology Information Source.............Cervix Other.............. No. of containers..01 ThinPrep Vial Age Algo ACOG Bina... FLAG LEGEND: L-Low Normal,H-High Normal,LL-Alert Low,HH-Alert High <-Panic Low,>-Panic High,A-Abnormal,AA-Critical Abnormal Performed at: 01 =G [address] [id number] Lali Holloway MD, IGP, RFX APTIMA HPV ASCU Note . [facility] Comment on above: TESTS RESULT FLAG UN ITS REF RANGE LAB DIAGNOSIS: 02 NEGATIVE FOR INTRAEPITHELIAL LESION OR MALIGNANCY. Specimen adequacy: 02 Satisfactory for evaluation. No endocervical component is identified. An endocervical component is not commonly seen in the patient. Performed by: 02 Kieran Pickering, Prep Manager ([facility]) . 02 Note: Note 02 The [...] Low,>-Panic High,A-Abnormal,AA-Critical Abnormal Performed at: [address] [facility] [address] [place] [address] Lali Holloway MD, Performed at: =G - [facility] [address] [id number] Computer Security Specialist: Lali Holloway MD, Phone: [phone] Performed at: [facility] [address] [id number] Computer Security Specialist: Lali Holloway MD, Phone: [phone] [facility] Urinalysis macro (dipstick) panel (U)on 09-22-2023 Bilirubin, UA Negative Negative - 4(70) +++ mg/dL [facility] Blood, UA Negative Negative - 50 Flash/mcL [facility] Clarity, UA Clear [facility] Color, UA Yellow [facility] Glucose, UA Negative Negative - 1999(110) ++++ mg/dL [facility] Interpretation and review of laboratory results [facility] Ketones, UA Positive Negative - 160(16) ++++ mg/dL [facility] Leukocytes, UA Negative Negative - 500+++ Taylor/mcL [facility] Nitrite, UA Negative Negative - Positive [facility] pH, UA 5.5 5 - 9 [facility] Protein, UA Negative Negative - 1999(20) ++++ mg/dL [facility] Spec Grav, UA 1.020 1 - 1.03 [facility] Urobilinogen, UA 0.2 0.2 - 12 mg/dL [facility] COMPLIANCE DRUG SCREENon PDF . Normal [facility] Comment on above: Performed By: #### U RCX #### [facility] [address] [address] [address] Tisha Carr Summary FINAL Normal [facility] Comment on above: Result Comment: = [...] test is not intended to distinguish between ecqgl-[id number], the predominant form of THC in most herbal or marijuana-based products, and fdzdy-3-wiktazxpwzbeywhcrqea. Methylphenidate PRESENT UNEXPECTED Ritalinic Acid PRESENT UNEXPECTED [...] = Performed By: #### U RCX #### [facility] [address] [place] [address] Dr. Tisha Carr URIC ACID RAND URINEon 10-31 Uric Acid, Urine 67.3 mg/dL Normal Not Estab. [facility] Comment on above: Performed By: #### U RCX #### [facility] [address] [address] [address] Tisha Carr DRUG SCREEN RAPID (URINE)on 10-30-2022 AMP Negative Normal NEGATIVE [facility] Comment on above: Performed By: #### U RCX #### [facility] [address] [address] [address] Tisha Carr BAR Negative Normal NEGATIVE [facility] Comment on above: Performed By: #### U RCX #### [facility] [address] [place] [address] Dr. Tisha Carr BUP Negative Normal NEGATIVE [facility] Comment on above: Performed By: #### U RCX #### [facility] [address] [place] [address] Dr. Tisha Carr BZO Negative Normal NEGATIVE [facility] Comment on above: Performed By: #### U RCX #### [facility] [address] [place] [address] Dr. Tisha Carr SOCRATES Negative Normal NEGATIVE [facility] Comment on above: Performed By: #### U RCX #### [facility] [address] [place] [address] Dr. Tisha Carr CUT-OFFS SEE BELOW Normal [facility] Comment on above: Result Comment: [...] ng/mL Performed By: #### U RCX #### [facility] [address] [address] [address] Tisha Carr DRUG CUT HEADER DRUG CLASS TEST SYST EM CUT-OFF CONCENTRATIONS ARE FOLLOWS: Normal [facility] Comment on above: Performed By: #### U RCX #### [facility] [address] [address] [address] Tisha Carr mAMP Negative Normal NEGATIVE [facility] Comment on above: Performed By: #### U RCX #### [facility] [address] [address] [address] Tisha Carr MTD Negative Normal NEGATIVE [facility] Comment on above: Performed By: #### U RCX #### [facility] [address] [address] [address] Tisha Carr OPI Negative Normal NEGATIVE [facility] Comment on above: Performed By: #### U RCX #### [facility] [address] [place] [address] Dr. Tisha Carr OXY Negative Normal NEGATIVE [facility] Comment on above: Performed By: #### U RCX #### [facility] [address] [address] [address] Tisha Carr PCP Negative Normal NEGATIVE [facility] Comment on above: Performed By: #### U RCX #### [facility] [address] [place] [address] Dr. Tisha Carr PPX Negative Normal NEGATIVE [facility] Comment on above: Performed By: #### U RCX #### [facility] [address] [address] [address] Tisha Carr TCA Negative Normal NEGATIVE [facility] Comment on above: Performed By: #### U RCX #### [facility] [address] [address] [address] Tisha Carr THC Positive Abnormal NEGATIVE [facility] Comment on above: Performed By: #### U RCX #### [facility] [address] [place] [address] Dr. Tisha Carr CBC AUTO DIFFon 06-21-2022 BASO # 0.0 103/ul Normal 0.0-0.1 [facility] Comment on above: Performed By: #### U RCX #### [facility] [address] [address] [address] Tisha Carr Basophils/100 WBC (Bld) 0.2 % Normal 0.2-2.0 [facility] Comment on above: Performed By: #### U RCX #### [facility] [address] [place] [address] Dr. Tisha Carr EO # 0.0 103/ul Normal 0.0-0.7 [facility] Comment on above: Performed By: #### U RCX #### [facility] [address] [place] [address] Dr. Tisha Carr Eosinophils/100 WBC (Bld) 0.2 % Critically low 0.9-7.0 [facility] Comment on above: Performed By: #### U RCX #### [facility] [address] [place] [address] Dr. Tisha Carr Erythrocyte distribution width (RBC) [Ratio] 12.3 % Normal 11.0-15.0 [facility] Comment on above: Performed By: #### U RCX #### [facility] [address] [place] [address] Dr. Tisha Carr Hematocrit (Bld) [Volume fraction] 43.1 % Normal 36.0-48.0 [facility] Comment on above: Performed By: #### U RCX #### [facility] [address] [place] [address] Dr. Tisha Carr Hemoglobin (Bld) [Mass/Vol] 15.1 g/dL Normal 12.0-16.0 [facility] Comment on above: Performed By: #### U RCX #### [facility] [address] [place] [address] Dr. Tisha Carr IG # 0.06 10e3/ul Critically high 0.00-0.03 [facility] Comment on above: Performed By: #### U RCX #### [facility] [address] [place] [address] Dr. Tisha Carr IG % 0.5 % Normal 0.0-0.5 [facility] Comment on above: Performed By: #### U RCX #### [facility] [address] [address] [address] Tisha Carr LYMPH # 1.0 103/ul Critically low 1.2-3.8 [facility] Comment on above: Performed By: #### U RCX #### [facility] [address] [place] [address] Dr. Tisha Carr Lymphocytes/100 WBC (Bld) 8.2 % Critically low 20.5-60.0 [facility] Comment on above: Performed By: #### U RCX #### [facility] [address] [place] [address] Dr. Tisha Carr MANUAL DIFF REQ NO Normal [facility] Comment on above: Performed By: #### U RCX #### [facility] [address] [place] [address] Dr. Tisha Carr MCH (RBC) [Entitic mass] 30.3 pg Normal 26.7-34.0 [facility] Comment on above: Performed By: #### U RCX #### [facility] [address] [place] [address] Dr. Tisha Carr MCHC (RBC) [Mass/Vol] 35.0 g/dL Normal 29.9-35.2 [facility] Comment on above: Performed By: #### U RCX #### [facility] [address] [place] [address] Dr. Tisha Carr MCV (RBC) [Entitic vol] 86.4 fL Normal 81.0-99.0 [facility] Comment on above: Performed By: #### U RCX #### [facility] [address] [place] [address] Dr. Tisha Carr MONO # 0.8 103/ul Normal 0.3-0.8 [facility] Comment on above: Performed By: #### U RCX #### [facility] [address] [place] [address] Dr. Tisha Carr Monocytes/100 WBC (Bld) 6.0 % Normal 1.7-12.0 [facility] Comment on above: Performed By: #### U RCX #### [facility] [address] [address] [address] Tisha Carr NEUT # 10.8 103/ul Critically high 1.4-6.5 [facility] Comment on above: Performed By: #### U RCX #### [facility] [address] [address] [address] Tisha Carr Neutrophils/100 WBC (Bld) 84.9 % Critically high 43.0-75.0 [facility] Comment on above: Performed By: #### U RCX #### [facility] [address] [address] [address] Tisha Carr Platelet mean volume (Bld) [Entitic vol] 10.8 fL Normal 9.5-13.5 [facility] Comment on above: Performed By: #### U RCX #### [facility] [address] [address] [address] Tisha Carr PLT 237 103/ul Normal 150-450 [facility] Comment on above: Performed By: #### U RCX #### [facility] [address] [place] [address] Dr. Tisha Carr RBC 4.99 106/ul Normal 4.20-5.40 [facility] Comment on above: Performed By: #### U RCX #### [facility] [address] [address] [address] Tisha Carr WBC 12.7 103/ul Critically high 4.0-11.0 [facility] Comment on above: Performed By: #### U RCX #### [facility] [address] [address] [address] Tisha Carr CRPon 06-21-2022 CRP 10.0 mg/dL Critically high <=1.0 [facility] Comment on above: Performed By: #### C RP, CMP, LIPA #### [facility] [address] [address] [address] Tisha Carr ER URINE PROFILEon 10-28-202 2 Bilirubin Ql (U) SMALL Abnormal NEGATIVE [facility] Comment on above: Performed By: #### E RUR, UMICRO, PREGU #### [facility] [address] [place] [address] Dr. Tisha Carr Clarity (U) CLEAR Normal CLEAR [facility] Comment on above: Performed By: #### E RUR, UMICRO, PREGU #### [facility] [address] [address] [address] Tisha Carr Color (U) YELLOW Normal YELLOW [facility] Comment on above: Performed By: #### E RUR, UMICRO, PREGU #### [facility] [address] [address] [address] Tisha QUEZADA A micrscopic examina tion will be performed if indicated. Normal [facility] Comment on above: Performed By: #### E RUR, UMICRO, PREGU #### [facility] [address] [place] [address] Dr. Tisha Carr Glucose Ql (U) Negative Normal NEGATIVE [facility] Comment on above: Performed By: #### E RUR, UMICRO, PREGU #### [facility] [address] [place] [address] Dr. Tisha Carr Hemoglobin Ql (U) MODERATE Abnormal NEGATIVE [facility] Comment on above: Performed By: #### E RUR, UMICRO, PREGU #### [facility] [address] [address] [address] Tisha Carr Ketones Ql (U) 80 mg/dl Abnormal NEGATIVE [facility] Comment on above: Performed By: #### E RUR, UMICRO, PREGU #### [facility] [address] [address] [address] Tisha Carr LEUKOCYTES Negative Normal NEGATIVE [facility] Comment on above: Performed By: #### E RUR, UMICRO, PREGU #### [facility] [address] [address] [address] Tisha Carr Nitrite Ql (U) Negative Normal NEGATIVE [facility] Comment on above: Performed By: #### E YULY CUMMINS, PREGU #### [facility] [address] [place] [address] Dr. Tisha Carr pH (U) 6.0 [pH] Normal 5-9 [facility] Comment on above: Performed By: #### E YULY CUMMINS, PREGU #### [facility] [address] [place] [address] Dr. Tisha Carr SPEC GRAVITY 1.025 Normal 1.005-<=1.025 [facility] Comment on above: Performed By: #### E RULEIGH LeoneICELLE, PREGU #### [facility] [address] [place] [address] Dr. Tisha Carr UA PROTEIN TRACE Normal NEGATIVE/ TRACE [facility] Comment on above: Performed By: #### YULY BRYANT, PREGU #### [facility] [address] [place] [address] Dr. Tisha Carr UR MICRO IND INDICATED Normal [facility] Comment on above: Performed By: #### YULY BRYANT, PREGU #### [facility] [address] [place] [address] Dr. Tisha Carr Urobilinogen Qn (U) 1.0 {Alma'U}/dL Normal 0.2 - 1.0 [facility] Comment on above: Performed By: #### YULY BRYANT, PREGU #### [facility] [address] [place] [address] Dr. Tisha Carr LACTATE/LACTIC ACIDon 2021 Lactate [Moles/Vol] 1.0 mmol/L Normal 0.4-1.9 [facility] Comment on above: Performed By: #### U RCX #### [facility] [address] [place] [address] Dr. Tisha Carr LIPASEon 06-21-2022 Lipase [Catalytic activity/Vol] 41.0 U/L Critically low 73.0-393.0 [facility] Comment on above: Performed By: #### C RP, CMP, LIPA #### [facility] [address] [address] [address] Tisha Carr URon 06-21-2022 , QUAL Negative Normal NEGATIVE [facility] Comment on above: Performed By: #### E RUR, UMICRO, PREGU #### [facility] [address] [address] [address] Tisha Carr PROF 14(COMP METB)on 022 Albumin [Mass/Vol] 4.0 g/dL Normal 3.4-5.0 [facility] Comment on above: Performed By: #### C RP, CMP, LIPA #### [facility] [address] [address] [address] Tisha Carr Albumin/Globulin [Mass ratio] 1.0 {ratio} Normal [facility] Comment on above: Performed By: #### C RP, CMP, LIPA #### [facility] [address] [address] [address] Tisha Carr ALP [Catalytic activity/Vol] 74 U/L Normal 46-116 [facility] Comment on above: Performed By: #### C RP, CMP, LIPA #### [facility] [address] [address] [address] Tisha Carr ALT [Catalytic activity/Vol] 33 U/L Normal 14-59 [facility] Comment on above: Performed By: #### C RP, CMP, LIPA #### [facility] [address] [address] [address] Tisha Carr Anion gap [Moles/Vol] 15.8 mmol/L Normal [facility] Comment on above: Performed By: #### C RP, CMP, LIPA #### [facility] [address] [address] [address] Tisha Carr AST [Catalytic activity/Vol] 17 U/L Normal 15-37 [facility] Comment on above: Performed By: #### C RP, CMP, LIPA #### [facility] [address] [address] [address] Tisha Carr Bilirubin [Mass/Vol] 1.3 mg/dL Critically high 0.2-1.0 [facility] Comment on above: Performed By: #### C RP, CMP, LIPA #### [facility] [address] [place] [address] Dr. Tisha Carr Calcium [Mass/Vol] 9.2 mg/dL Normal 8.5-10.1 [facility] Comment on above: Performed By: #### C RP, CMP, LIPA #### [facility] [address] [place] [address] Dr. Tisha Carr Chloride [Moles/Vol] 102 mmol/L Normal 98-107 [facility] Comment on above: Performed By: #### C RP, CMP, LIPA #### [facility] [address] [place] [address] Dr. Tisha Carr CO2 [Moles/Vol] 22.7 mmol/L Normal 21.0-32.0 [facility] Comment on above: Performed By: #### C RP, CMP, LIPA #### [facility] [address] [place] [address] Dr. Tisha Carr Creatinine [Mass/Vol] 0.70 mg/dL Normal 0.55-1.02 [facility] Comment on above: Performed By: #### C RP, CMP, LIPA #### [facility] [address] [place] [address] Dr. Tisha Carr EGFR-AF CENTRAL AFRICAN >60 Normal >=60 [facility] Comment on above: Performed By: #### C RP, CMP, LIPA #### [facility] [address] [place] [address] Dr. Tisha Carr EGFR-NON AF CENTRAL AFRICAN >60 Normal >=60 [facility] Comment on above: Performed By: #### C RP, CMP, LIPA #### [facility] [address] [place] [address] Dr. Tisha Carr Globulin (S) [Mass/Vol] 4.2 g/dL Normal [facility] Comment on above: Performed By: #### C RP, CMP, LIPA #### [facility] [address] [place] [address] Dr. Tisha Carr Glucose [Mass/Vol] 93 mg/dL Normal 74-106 [facility] Comment on above: Performed By: #### C RP, CMP, LIPA #### [facility] [address] [place] [address] Dr. Tisha Carr Potassium [Moles/Vol] 3.5 mmol/L Normal 3.5-5.1 [facility] Comment on above: Performed By: #### C RP, CMP, LIPA #### [facility] [address] [place] [address] Dr. Tisha Carr Protein [Mass/Vol] 8.2 g/dL Normal 6.4-8.2 [facility] Comment on above: Performed By: #### C RP, CMP, LIPA #### [facility] [address] [place] [address] Dr. Tisha Carr Sodium [Moles/Vol] 137 mmol/L Normal 136-145 [facility] Comment on above: Performed By: #### C RP, CMP, LIPA #### [facility] [address] [place] [address] Dr. Tisha Carr Urea nitrogen [Mass/Vol] 16.0 mg/dL Normal 7.0-18.0 [facility] Comment on above: Performed By: #### C RP, CMP, LIPA #### [facility] [address] [place] [address] Dr. Tisha Carr Urea nitrogen/Creatinin e [Mass ratio] 22.9 mg/mg Normal [facility] Comment on above: Performed By: #### C RP, CMP, LIPA #### [facility] [address] [place] [address] Dr. Tisha Carr URINE MICROSCOPIC ONLYon BACTERIA TRACE Abnormal NONE SEEN [facility] Comment on above: Performed By: #### E YULY CUMMINS PREGU #### [facility] [address] [place] [address] Dr. Tisha Carr Bacteria identified Cx Nom (U) NOT INDICATED Normal [facility] Comment on above: Performed By: #### YULY BRYANT PREGU #### [facility] [address] [address] [address] Tisha Carr CAST NONE SEEN Normal NONE SEEN [facility] Comment on above: Performed By: #### YULY BRYANT, PREGU #### [facility] [address] [address] [address] Tisha Carr Crystals LM Nom (Urine sed) NONE SEEN Normal NONE SEEN [facility] Comment on above: Performed By: #### YULY BRYANT, PREGU #### [facility] [address] [address] [address] Tisha Carr Epithelial cells LM Ql (Urine sed) MODERATE Abnormal NONE SEEN /RARE [facility] Comment on above: Performed By: #### YULY BRYANT, PREGU #### [facility] [address] [place] [address] Dr. Tisha Carr MUCOUS MODERATE Abnormal NONE SEEN [facility] Comment on above: Performed By: #### YULY BRYANT, PREGU #### [facility] [address] [address] [address] Tisha Carr RBC 0-2 Normal 0-2 [facility] Comment on above: Performed By: #### YULY BRYANT, PREGU #### [facility] [address] [place] [address] Dr. Tisha Carr WBC 0-2 Abnormal NONE SEEN [facility] Comment on above: Performed By: #### YULY BRYANT, PREGU #### [facility] [address] [place] [address] Dr. Tisha Carr PAP ACOG PANEL 2: 21 to 29on 04-11-2022 . . Normal [facility] Comment on above: Performed By: #### U RCX #### [facility] [address] [address] [address] Tisha Carr Age Gdln ACOG Testing 21-29 Normal [facility] Comment on above: Performed By: #### U RCX #### [facility] [address] [place] [address] Dr. Tisha Carr DIAGNOSIS: Comment Normal [facility] Comment on above: Result Comment: NEGA TIVE FOR INTRAEPITHELIAL LESION OR MALIGNANCY. FUNGAL ORGANISMS MORPHOLOGICALLY CONSISTENT WITH SHEREE SPECIES ARE PRESENT. Performed By: #### U RCX #### [facility] [address] [place] [address] Dr. Tisha Carr Methodology: Comment Normal [facility] Comment on above: Result Comment: This liquid based ThinPrep(R) pap test was screened with the use of an image guided system. Performed By: #### U RCX #### [facility] [address] [place] [address] Dr. Tisha Carr Note: Comment Normal [facility] Comment on above: Result Comment: The Pap smear is a screening test designed to aid in the detection of premalignant and malignant conditions of the uterine cervix. It is not a diagnostic procedure and should not be used as the sole means of detecting cervical cancer. Both false-positive and false-negative reports do occur. . Performed By: #### U RCX #### [facility] [address] [place] [address] Dr. Tisha Carr Performed by: Comment Normal [facility] Comment on above: Result Comment: Caleb Schaeffer, Prep Manager (ASCP) Performed By: #### U RCX #### [facility] [address] [place] [address] Dr. Tisha Carr Reflex Criteria: Comment [facility] Comment on above: Result Comment: The HPV DNA reflex criteria were not met with this specimen result therefore, no HPV testing was performed. . Performed By: #### U RCX #### [facility] [address] [place] [address] Dr. Tisha Carr Specimen adequacy: Comment Normal [facility] Comment on above: Result Comment: Sati sfactory for evaluation. Endocervical and/or squamous metaplastic cells (endocervical component) are present. Performed By: #### U RCX #### [facility] [address] [place] [address] Dr. Tisha Carr CULTURE URINEon 01-08-2022 CULTURE [...] Trimethoprim/Sulfamethox azole <=20 S F Normal [facility] Comment on above: Performed By: #### U RCX #### [facility] [address] [place] [id number] [address] Tisha Carr Covid-19 PCR (CVDTB)on 12-23 SARS-CoV-2 (COVID-19) RNA OC+probe Ql (Unsp spec) Not detected Normal NOT DETECTED [facility] Comment on above: Result Comment: This test is not yet approved or cleared by the [place] FDA. When there are no FDA-approved or cleared tests available, and other criteria are met, FDA can make tests available under an emergency access mechanism called an Emergency Use Authorization (EUA). The EUA for this test is supported by the [place] of Health and Human Service's (HHS's) declaration [...] SARS-CoV-2. Performed By: #### C VDTBH #### [facility] [address] [place] [id number] [address] Tisha Carr ER URINE PROFILEon 2 Bilirubin Ql (U) MODERATE Abnormal NEGATIVE [facility] Comment on above: Performed By: #### E RUR, UMICRO, PREGU #### [facility] [address] [address] [address] Tisha Carr Clarity (U) CLEAR Normal CLEAR [facility] Comment on above: Performed By: #### E RUR, UMICRO, PREGU #### [facility] [address] [address] [address] Tisha Carr Color (U) DK. YELLOW Normal YELLOW [facility] Comment on above: Performed By: #### E RUR, UMICRO, PREGU #### [facility] [address] [address] [address] Tisha Carr ERUSHAGGYD A micrscopic examina tion will be performed if indicated. Normal [facility] Comment on above: Performed By: #### E RUR, UMICRO, PREGU #### [facility] [address] [address] [address] Tisha Carr Glucose Ql (U) Negative Normal NEGATIVE [facility] Comment on above: Performed By: #### E RUR, UMICRO, PREGU #### [facility] [address] [address] [address] Tisha Carr Hemoglobin Ql (U) Negative Normal NEGATIVE [facility] Comment on above: Performed By: #### E RUR, UMICRO, PREGU #### [facility] [address] [address] [address] Tisha Carr Ketones Ql (U) >=[address] [facility] Comment on above: Performed By: #### E RUR, UMICRO, PREGU #### [facility] [address] [address] [address] Tisha Carr LEUKOCYTES TRACE Abnormal NEGATIVE [facility] Comment on above: Performed By: #### E RUR, UMICRO, PREGU #### [facility] [address] [address] [address] Tisha Carr Nitrite Ql (U) Negative Normal NEGATIVE [facility] Comment on above: Performed By: #### E RUR, UMICRO, PREGU #### [facility] [address] [place] [address] Dr. Tisha Carr pH (U) 6.0 [pH] Normal 5-9 [facility] Comment on above: Performed By: #### YULY BRYANT, PREGU #### [facility] [address] [place] [address] Dr. Tisha Carr Protein (U) [Mass/Vol] 100 mg/dL Abnormal NEGATIVE/ TRACE [facility] Comment on above: Performed By: #### YULY BRYANT, PREGU #### [facility] [address] [place] [address] Dr. Tisha Carr SPEC GRAVITY 1.025 Normal 1.005-<=1.025 [facility] Comment on above: Performed By: #### YULY BRYANT, PREGU #### [facility] [address] [place] [address] Dr. Tisha Carr UR MICRO IND INDICATED Normal [facility] Comment on above: Performed By: #### YULY BRYANT, PREGU #### [facility] [address] [place] [address] Dr. Tisha Carr Urobilinogen Qn (U) 1.0 {Alma'U}/dL Normal 0.2 - 1.0 [facility] Comment on above: Performed By: #### YULY BRYANT, PREGU #### [facility] [address] [place] [address] Dr. Tisha Carr INFLUENZA A AND B AGon 01-06 INFLUANEGH SEE BELOW Normal [facility] Comment on above: Result Comment: Nega tive for Flu A protein angiten. Infection due to Flu A cannot be ruled out. Flu A angiten in the sample may be below the detection limit of the test. Performed By: #### U RCX #### [facility] [address] [place] [address] Dr. Tisha Carr INFLUBNEGH SEE BELOW Normal [facility] Comment on above: Result Comment: Nega tive for Flu B protein antigen. Infection due to Flu B cannot be ruled out. Flu B antigen in the sample may be below the detection limit of the test. Performed By: #### U RCX #### [facility] [address] [place] [address] Dr. Tisha Carr INFLUENZA A AG Negative Normal NEGATIVE SEE COMMENT [facility] Comment on above: Performed By: #### U RCX #### [facility] [address] [address] [address] Tisha Carr INFLUENZA B AG Negative Normal NEGATIVE SEE COMMENT [facility] Comment on above: Performed By: #### U RCX #### [facility] [address] [place] [address] Dr. Tisha Carr INTERNAL CONTROLS Within Normal Limits Normal Wi thin Normal Limits [facility] Comment on above: Performed By: #### U RCX #### [facility] [address] [place] [address] Dr. Tisha Carr URon 01-06-2022 , QUAL Negative Normal NEGATIVE [facility] Comment on above: Performed By: #### E RUR, UMICRO, PREGU #### [facility] [address] [place] [address] Dr. Tisha Carr URINE MICROSCOPIC ONLYon BACTERIA SMALL Abnormal NONE SEEN [facility] Comment on above: Performed By: #### U RCX #### [facility] [address] [place] [address] Dr. Tisha Carr Bacteria identified Cx Nom (U) INDICATED Normal [facility] Comment on above: Performed By: #### U RCX #### [facility] [address] [place] [address] Dr. Tisha Carr CAST NONE SEEN Normal NONE SEEN [facility] Comment on above: Performed By: #### U RCX #### [facility] [address] [place] [address] Dr. Tisha Carr Crystals LM Nom (Urine sed) NONE SEEN Normal NONE SEEN [facility] Comment on above: Performed By: #### U RCX #### [facility] [address] [place] [address] Dr. Tisha Carr Epithelial cells LM Ql (Urine sed) MANY Abnormal NONE SEEN /RARE [facility] Comment on above: Performed By: #### U RCX #### [facility] [address] [place] [address] Dr. Tisha Carr MUCOUS LARGE Abnormal NONE SEEN [facility] Comment on above: Performed By: #### U RCX #### [facility] [address] [address] [address] Tisha Carr RBC NONE SEEN Abnormal 0-2 [facility] Comment on above: Performed By: #### U RCX #### [facility] [address] [address] [address] Tisha Carr WBC 5-10 Abnormal NONE SEEN [facility] Comment on above: Performed By: #### U RCX #### [facility] [address] [place] [address] Dr. Tisha Carr Vital Signs Date Time Vital Sign Value Performing Clinician Faci lity 09-22-2023 16:01-0500 Body weight 89.09 kg Belkis Jessica DO Work Phone: [facility] 09-22-2023 16:01-0500 Diastolic blood pressure 70 mm[Hg] Belkis Jessica DO Work Phone: [facility] 09-22-2023 16:01-0500 Systolic blood pressure 120 mm[Hg] Belkis Jessica DO Work Phone: [facility] Healthcare Encounters Encounter Date Encounter Type Care Provider Facility Start: 12-02-2023 End: 12-02-2023 ambulatory BELKIS JESSICA Not Available Start: 11-17-2023 End: 11-17-2023 ambulatory BELKIS JESSICA Not Available Start: 10-20-2023 End: 10-20-2023 ambulatory BELKIS JESSICA Not Available Start: 09-22-2023 End: 09-22-2023 ambulatory BELKIS JESSICA Not Available Start: 09-22-2023 End: 09-22-2023 Patient encounter procedure Belkis Jessica DO Work Phone: [facility] Start: 09-22-2023 End: 09-22-2023 Periodic preventive med [...] Routine [facility] [address] [place] [id number] Belkis Lopez, DO [address] [place] [address] [facility] Start: 09-22-2023 End: 09-22-2024 Alpha fetoprotein, maternal Alpha fetoprotein, maternal Lab Routine Second trimester Need for maternal serum alpha-protein (MSAFP) screening Expected: 09/22/2023 (Approximate), Expires: 09/22/2024 [facility] Comment on above: Expected: 09/22/2023 (Approximate), Expires: 09/22/2024 Start: 09-22-2023 End: 09-22-2024 US for US OB ANATOMY SINGLE W US OB CERVICAL LENGTH Imaging Routine Screening, , for anatomic survey Expected: 09/22/2023 (Approximate), Expires: 09/22/2024 [facility] Comment on above: Expected: 09/22/2023 (Approximate), Expires: 09/22/2024 CHLAMYDIA TRACHOMATI S (GENITO/STI) CHLAMYDIA TRACHOMATIS (GENITO/STI) Lab Routine Exposure to STD Ordered: 09/22/2023 [facility] Comment on above: Ordered: 09/22/2023 Cytology Cervical or vaginal smear or scraping study Pap Smear Pathology and Cytology Routine Well woman exam with routine gynecological exam Ordered: 09/22/2023 [facility] Comment on above: Ordered: 09/22/2023 Neisseria gonorrhoea e DNA [Presence] in Unspecified specimen by OC with probe detection Neisseria gonorrhea DNA probe, direct Lab Routine Exposure to STD Ordered: 09/22/2023 [facility] Comment on above: Ordered: 09/22/2023 SURESWAB(R) ADVANCED VAGINITIS PLUS, TMA SURESWAB(R) ADVANCED VAGINITIS PLUS, TMA Pathology and Cytology Routine Exposure to STD Ordered: 09/22/2023 [facility] Work Phone: Comment on above: Ordered: 09/22/2023 Payers Date Payer Category Payer Medicaid [employer] [place] [employer] [id number] 2021-Present [address] [place] [id number] 2000 Unknown [id number] 2000 Unknown [id number] 2000 Unknown [id number] [id number] 2000 Unknown [id number] [id number] 2000 Unknown [id number] [id number] 2000 Unknown [id number] [id number] 2000 Unknown [id number] [id number] 2000 Unknown [id number] [id number] 2000 Unknown [id number] [id number] 2000 Unknown [id number] [id number] 2000 Unknown [id number] [id number] 1959 Unknown [id number] Social History Date Type Detail Facility Tobacco smoking stat [facility] Tobacco smoking consumption unknown [facility] Start: [...] Problems Past Medical History: Diagnosis Date Asthma ([facility]) No family history on file. Social [...] nursing note reviewed. Exam conducted with a pre sales architect present. Vitals: There is no height or [...] DATE CREATED AUTHOR AUTHOR'S ORGANIZ ATION 12/03/2023 [facility] EPIC Reason for Visit (unrecogniz ed [...] BE BASED ON THE PRIMARY CLINICAL RECORDS. [facility] [employer] [facility]. provides no warranty or guarantee of the accuracy or completeness of information in this document.
--- NOTE | 2023-12-20 10:52 | US_ITS ---
[address] [address] Patient Name: FLORENCIA NEELY MRN: [facility]:[id number] date: 2000 Sex: F Assigned Patient Location: [facility] Current Patient Location: Accession/Order Number: [id number] Exam Date: 12/20/2023 11:17 Report Date: 12/22/2023 08:09 At the request of: BELKIS BRAND Procedure: US OB cervical length EXAMINATION: US OB growth, US OB cervical length HISTORY: INSULIN CONTROLLED GDM O24.414 COMPARISON: Ultrasound OB anatomy 09/27/2023, ultrasound cervical length 12/15/2023 FINDINGS: Heart Rate: 134.3 bpm Number: 1.0 Position: CEPHALIC Amniotic Fluid Volume: 13.5 cm Maximum Vertical Pocket: 4.8 cm BIOMETRY: BPD: 8.6 cm cm; 34 weeks 5 days; 96% HC: 31.6 cmcm; 35 weeks 3 days ; 90% AC: 30.4 cm cm; 34 weeks 2 days; 94% FL: 6.1 cm cm; 31 weeks 5 days; 23% EFW: 2266.8 grams; 84% FL/AC: 20.1 FL/BPD: 70.9 HC/AC: 1.0 CERVIX: 4.5 cm in length and closed. OTHER: Small hypoechoic area within placenta is suspected represent a venous ho. Incidental small nabothian cysts within distal cervix. GESTATIONAL AGE: Age by EDC: 32 weeks 2 days AGATHA by EDC: 02/12/2024 Age by US: 34 weeks 0 days AGATHA by US: 01/31/2024 US/US OB cervical length IMPRESSION: 1. Single live intrauterine with growth detailed above. 2. Biparietal diameter is at 96th percentile. Head circumference and abdominal circumference are greater than or equal to 90th percentile. 3. Closed cervix 4.5 cm in length. Electronically authenticated by: MERVAT LANG Date: 12/22/2023 08:09
--- NOTE | 2023-12-20 11:01 | US_ITS ---
[address] [address] Patient Name: FLORENCIA NEELY MRN: [facility]:[id number] date: 2000 Sex: F Assigned Patient Location: [facility] Current Patient Location: Accession/Order Number: [id number] Exam Date: 12/20/2023 11:17 Report Date: 12/22/2023 08:10 At the request of: BELKIS BRAND Procedure: US OB BPP w non-stress EXAMINATION: US OB BPP w non-stress HISTORY: INSULIN CONTROLLED GDM O24.414 COMPARISON: Ultrasound OB anatomy 09/27/2023 TECHNIQUE: Ultrasound biophysical profile was performed in the radiology department. BREATHING MOVEMENTS: 0.0 GROSS BODY MOVEMENTS: 2.0 TONE: 2.0 QUALITATIVE AMNIOTIC FLUID VOLUME: 2.0 PRESENTATION: CEPHALIC HEART RATE: 134.3 bpm bpm. AMNIOTIC FLUID VOLUME: 13.5 cm GESTATIONAL AGE: 32 weeks 2 days CONCLUSION: Total biophysical profile score 6.0. Electronically authenticated by: MERVAT LANG Date: 12/22/2023 08:10
--- NOTE | 2023-12-20 11:02 | US_ITS ---
[address] [address] Patient Name: FLORENCIA NEELY MRN: [facility]:[id number] date: 2000 Sex: F Assigned Patient Location: [facility] Current Patient Location: Accession/Order Number: [id number] Exam Date: 12/20/2023 11:17 Report Date: 12/22/2023 08:09 At the request of: BELKIS BRAND Procedure: US OB growth EXAMINATION: US OB growth, US OB cervical length HISTORY: INSULIN CONTROLLED GDM O24.414 COMPARISON: Ultrasound OB anatomy 09/27/2023, ultrasound cervical length 12/15/2023 FINDINGS: Heart Rate: 134.3 bpm Number: 1.0 Position: CEPHALIC Amniotic Fluid Volume: 13.5 cm Maximum Vertical Pocket: 4.8 cm BIOMETRY: BPD: 8.6 cm cm; 34 weeks 5 days; 96% HC: 31.6 cmcm; 35 weeks 3 days ; 90% AC: 30.4 cm cm; 34 weeks 2 days; 94% FL: 6.1 cm cm; 31 weeks 5 days; 23% EFW: 2266.8 grams; 84% FL/AC: 20.1 FL/BPD: 70.9 HC/AC: 1.0 CERVIX: 4.5 cm in length and closed. OTHER: Small hypoechoic area within placenta is suspected represent a venous ho. Incidental small nabothian cysts within distal cervix. GESTATIONAL AGE: Age by EDC: 32 weeks 2 days AGATHA by EDC: 02/12/2024 Age by US: 34 weeks 0 days AGATHA by US: 01/31/2024 US/US OB growth IMPRESSION: 1. Single live intrauterine with growth detailed above. 2. Biparietal diameter is at 96th percentile. Head circumference and abdominal circumference are greater than or equal to 90th percentile. 3. Closed cervix 4.5 cm in length. Electronically authenticated by: MERVAT LANG Date: 12/22/2023 08:09
[2023-12-20 12:26] VITALS: TEMP 35.6; TEMP 36.1
[2023-12-20 12:29] VITALS: BP 133/73; PULSE 81
--- NOTE | 2023-12-20 13:39 | PC.NURSE ---
growth overall 84%. Cervical length 4.6
== END 2023-12-20 13:10 | disposition home or self-care (01) ==
LOC: US 01:45 → FBC 10:50
PROVIDERS: PCP Nurse Practitioner Family; Visit Provider Obstetrics & Gynecology
DX: O24.414 Gestational diabetes mellitus in pregnancy, insulin controlled (principal); Z3A.32 32 weeks gestation of pregnancy
CPT/HCPCS: 76816; 76817; 76818

== ENCOUNTER 2023-12-24 07:12 | Outpatient (OUT) | payer OTHER, SELFPAY ==
--- OUTSIDE RECORDS SUMMARY | 2023-12-24 07:16 | XMS_ITS | CCD ---
Author Organization [facility] Care Team Providers Care Associate Loan Officer Name Role Phone JOSE ., LITA Admitting Unavailable JOSE ., LITA Attending Unavailable RYLYE, ARIANE Primary Care Unavailable JOSE ., LITA [...] (1 source) Ibuprofen Drug Allergy 01-15-2016 [facility] Repository (2 sources) Ibuprofen Drug [...] GDLN ACOG TESTING Note . [facility] Comment on above: TESTS RESULT FLAG UN ITS REF RANGE LAB Clinician Provided Cytology Information Source.............Cervix Other.............. No. of containers..01 ThinPrep Vial Age Algo ACOG Bina... - 01 FLAG LEGEND: L-Low Normal,H-High Normal,LL-Alert Low,HH-Alert High <-Panic Low,>-Panic High,A-Abnormal,AA-Critical Abnormal Performed at: 01 =G [address] [address] Lali Holloway MD, IGP, RFX APTIMA HPV ASCU Note . [facility] Comment on above: TESTS RESULT FLAG UN ITS REF RANGE LAB DIAGNOSIS: 02 NEGATIVE FOR INTRAEPITHELIAL LESION OR MALIGNANCY. Specimen adequacy: 02 Satisfactory for evaluation. No endocervical component is identified. An endocervical component is not commonly seen in the patient. Performed by: 02 Kieran Pickering, Shoe Salesperson ([facility]) . 02 Note: Note 02 [...] Low,>-Panic High,A-Abnormal,AA-Critical Abnormal Performed at: [address] [facility] [address] [place] [address] Lali Holloway MD, Performed at: =G - [facility] [address], [place] [id number] Database Management System Specialist: Lali Holloway MD, Phone: [phone] Performed at: [facility] [address] [id number] Database Management System Specialist: Lali Holloway MD, Phone: [phone] [facility] Urinalysis macro (dipstick) panel (U)on 09-22-2023 Bilirubin, UA Negative Negative - 4(70) +++ mg/dL [facility] Blood, UA Negative Negative - 50 Flash/mcL [facility] Clarity, UA Clear [facility] Color, UA Yellow [facility] Glucose, UA Negative Negative - 1999(110) ++++ mg/dL [facility] Interpretation and review of laboratory results Abnormal [facility] Ketones, UA Positive Negative - 160(16) ++++ mg/dL [facility] Leukocytes, UA Negative Negative - 500+++ Taylor/mcL [facility] Nitrite, UA Negative Negative - Positive [facility] pH, UA 5.5 5 - 9 [facility] Protein, UA Negative Negative - 1999(20) ++++ mg/dL [facility] Spec Grav, UA 1.020 1 - 1.03 [facility] Urobilinogen, UA 0.2 0.2 - 12 mg/dL [facility] COMPLIANCE DRUG SCREENon PDF . Normal [facility] Comment on above: Performed By: #### U RCX #### [facility] [address] [address] [address] Tisha Carr Summary FINAL [facility] Comment on above: Result Comment: = [...] test is not intended to distinguish between hpqup-6-mlrgntmtfosrwrondqbc, the predominant form of THC in most herbal or marijuana-based products, and forlr-7-dsoltnhhstlqnqgjiwco. Methylphenidate PRESENT UNEXPECTED Ritalinic Acid PRESENT UNEXPECTED [...] = Performed By: #### U RCX #### [facility] [address] [place] [address] Dr. Tisha Carr URIC ACID RAND URINEon 10-31 Uric Acid, Urine 67.3 mg/dL Normal Not Estab. [facility] Comment on above: Performed By: #### U RCX #### [facility] [address] [place] [address] Dr. Tisha Carr DRUG SCREEN RAPID (URINE)on 10-30-2022 AMP Negative Normal NEGATIVE [facility] Comment on above: Performed By: #### U RCX #### [facility] [address] [place] [address] Dr. Tisha Carr BAR Negative Normal NEGATIVE [facility] Comment on above: Performed By: #### U RCX #### [facility] [address] [place] [address] Dr. Tisha Carr BUP Negative Normal NEGATIVE [facility] Comment on above: Performed By: #### U RCX #### [facility] [address] [place] [address] Dr. Tisha Carr BZO Negative Normal NEGATIVE [facility] Comment on above: Performed By: #### U RCX #### [facility] [address] [place] [address] Dr. Tisha Carr SOCRATES Negative Normal NEGATIVE [facility] Comment on above: Performed By: #### U RCX #### [facility] [address] [place] [address] Dr. Tisha Carr CUT-OFFS SEE BELOW Normal [facility] Comment on above: Result Comment: [...] ng/mL Performed By: #### U RCX #### [facility] [address] [place] [address] Dr. Tisha Carr DRUG CUT HEADER DRUG CLASS TEST SYST EM CUT-OFF CONCENTRATIONS ARE FOLLOWS: Normal [facility] Comment on above: Performed By: #### U RCX #### [facility] [address] [place] [address] Dr. Tisha Carr mAMP Negative Normal NEGATIVE [facility] Comment on above: Performed By: #### U RCX #### [facility] [address] [place] [address] Dr. Tisha Carr MTD Negative Normal NEGATIVE [facility] Comment on above: Performed By: #### U RCX #### [facility] [address] [place] [address] Dr. Tisha Carr OPI Negative Normal NEGATIVE [facility] Comment on above: Performed By: #### U RCX #### [facility] [address] [place] [address] Dr. Tisha Carr OXY Negative Normal NEGATIVE [facility] Comment on above: Performed By: #### U RCX #### [facility] [address] [address] [address] Tisha Carr PCP Negative Normal NEGATIVE [facility] Comment on above: Performed By: #### U RCX #### [facility] [address] [place] [address] Dr. Tisha Carr PPX Negative Normal NEGATIVE [facility] Comment on above: Performed By: #### U RCX #### [facility] [address] [place] [address] Dr. Tisha Carr TCA Negative Normal NEGATIVE [facility] Comment on above: Performed By: #### U RCX #### [facility] [address] [place] [address] Dr. Tisha Carr THC Positive Abnormal NEGATIVE [facility] Comment on above: Performed By: #### U RCX #### [facility] [address] [place] [address] Dr. Tisha Carr CBC AUTO DIFFon 06-21-2022 BASO # 0.0 103/ul Normal 0.0-0.1 [facility] Comment on above: Performed By: #### U RCX #### [facility] [address] [place] [address] Dr. Tisha Carr Basophils/100 WBC (Bld) 0.2 % Normal 0.2-2.0 [facility] Comment on above: Performed By: #### U RCX #### [facility] [address] [place] [address] Dr. Tisha Carr EO # 0.0 103/ul Normal 0.0-0.7 [facility] Comment on above: Performed By: #### U RCX #### [facility] [address] [place] [address] Dr. Tisha Carr Eosinophils/100 WBC (Bld) 0.2 % Critically low 0.9-7.0 [facility] Comment on above: Performed By: #### U RCX #### [facility] [address] [place] [address] Dr. Tisha Carr Erythrocyte distribution width (RBC) [Ratio] 12.3 % Normal 11.0-15.0 [facility] Comment on above: Performed By: #### U RCX #### [facility] [address] [place] [address] Dr. Tisha Carr Hematocrit (Bld) [Volume fraction] 43.1 % Normal 36.0-48.0 [facility] Comment on above: Performed By: #### U RCX #### [facility] [address] [place] [address] Dr. Tisha Carr Hemoglobin (Bld) [Mass/Vol] 15.1 g/dL Normal 12.0-16.0 [facility] Comment on above: Performed By: #### U RCX #### [facility] [address] [place] [address] Dr. Tisha Carr IG # 0.06 10e3/ul Critically high 0.00-0.03 [facility] Comment on above: Performed By: #### U RCX #### [facility] [address] [place] [address] Dr. Tisha Carr IG % 0.5 % Normal 0.0-0.5 [facility] Comment on above: Performed By: #### U RCX #### [facility] [address] [place] [address] Dr. Tisha Carr LYMPH # 1.0 103/ul Critically low 1.2-3.8 [facility] Comment on above: Performed By: #### U RCX #### [facility] [address] [place] [address] Dr. Tisha Carr Lymphocytes/100 WBC (Bld) 8.2 % Critically low 20.5-60.0 [facility] Comment on above: Performed By: #### U RCX #### [facility] [address] [place] [address] Dr. Tisha Carr MANUAL DIFF REQ NO Normal [facility] Comment on above: Performed By: #### U RCX #### [facility] [address] [place] [address] Dr. Tisha Carr MCH (RBC) [Entitic mass] 30.3 pg Normal 26.7-34.0 [facility] Comment on above: Performed By: #### U RCX #### [facility] [address] [place] [address] Dr. Tisha Carr MCHC (RBC) [Mass/Vol] 35.0 g/dL Normal 29.9-35.2 [facility] Comment on above: Performed By: #### U RCX #### [facility] [address] [place] [address] Dr. Tisha Carr MCV (RBC) [Entitic vol] 86.4 fL Normal 81.0-99.0 [facility] Comment on above: Performed By: #### U RCX #### [facility] [address] [place] [address] Dr. Tisha Carr MONO # 0.8 103/ul Normal 0.3-0.8 [facility] Comment on above: Performed By: #### U RCX #### [facility] [address] [place] [address] Dr. Tisha Carr Monocytes/100 WBC (Bld) 6.0 % Normal 1.7-12.0 [facility] Comment on above: Performed By: #### U RCX #### [facility] [address] [place] [address] Dr. Tisha Carr NEUT # 10.8 103/ul Critically high 1.4-6.5 [facility] Comment on above: Performed By: #### U RCX #### [facility] [address] [place] [address] Dr. Tisha Carr Neutrophils/100 WBC (Bld) 84.9 % Critically high 43.0-75.0 [facility] Comment on above: Performed By: #### U RCX #### [facility] [address] [place] [address] Dr. Tisha Carr Platelet mean volume (Bld) [Entitic vol] 10.8 fL Normal 9.5-13.5 [facility] Comment on above: Performed By: #### U RCX #### [facility] [address] [place] [address] Dr. Tisha Carr PLT 237 103/ul Normal 150-450 [facility] Comment on above: Performed By: #### U RCX #### [facility] [address] [place] [address] Dr. Tisha Carr RBC 4.99 106/ul Normal 4.20-5.40 [facility] Comment on above: Performed By: #### U RCX #### [facility] [address] [place] [address] Dr. Tisha Carr WBC 12.7 103/ul Critically high 4.0-11.0 [facility] Comment on above: Performed By: #### U RCX #### [facility] [address] [place] [address] Dr. Tisha Carr CRPon 06-21-2022 CRP 10.0 mg/dL Critically high <=1.0 [facility] Comment on above: Performed By: #### C RP, CMP, LIPA #### [facility] [address] [place] [address] Dr. Tisha Carr ER URINE PROFILEon 2 Bilirubin Ql (U) SMALL Abnormal NEGATIVE [facility] Comment on above: Performed By: #### E RUR, UMICRO, PREGU #### [facility] [address] [address] [address] Tisha Carr Clarity (U) CLEAR Normal CLEAR [facility] Comment on above: Performed By: #### E RUR, UMICRO, PREGU #### [facility] [address] [address] [address] Tisha Carr Color (U) YELLOW Normal YELLOW [facility] Comment on above: Performed By: #### E RUR, UMICRO, PREGU #### [facility] [address] [address] [address] Tisha QUEZADA A micrscopic examina tion will be performed if indicated. Normal [facility] Comment on above: Performed By: #### E RUR, UMICRO, PREGU #### [facility] [address] [address] [address] Tisha Carr Glucose Ql (U) Negative Normal NEGATIVE [facility] Comment on above: Performed By: #### E RUR, UMICRO, PREGU #### [facility] [address] [address] [address] Tisha Carr Hemoglobin Ql (U) MODERATE Abnormal NEGATIVE [facility] Comment on above: Performed By: #### E RUR, UMICRO, PREGU #### [facility] [address] [address] [address] Tisha Carr Ketones Ql (U) 80 mg/dl Abnormal NEGATIVE [facility] Comment on above: Performed By: #### E RUR, UMICRO, PREGU #### [facility] [address] [address] [address] Tisha Carr LEUKOCYTES Negative Normal NEGATIVE [facility] Comment on above: Performed By: #### E RUR, UMICRO, PREGU #### [facility] [address] [address] [address] Tisha Carr Nitrite Ql (U) Negative Normal NEGATIVE [facility] Comment on above: Performed By: #### E YULY CUMMINS, PREGU #### [facility] [address] [place] [address] Dr. Tisha Carr pH (U) 6.0 [pH] Normal 5-9 [facility] Comment on above: Performed By: #### LEIGH BRYANTICELLE, PREGU #### [facility] [address] [place] [address] Dr. Tisha Carr SPEC GRAVITY 1.025 Normal 1.005-<=1.025 [facility] Comment on above: Performed By: #### Sofi RUYULY Leone, PREGU #### [facility] [address] [place] [address] Dr. Tisha Carr UA PROTEIN TRACE Normal NEGATIVE/ TRACE [facility] Comment on above: Performed By: #### YULY BRYANT, PREGU #### [facility] [address] [place] [address] Dr. Tisha Carr UR MICRO IND INDICATED Normal [facility] Comment on above: Performed By: #### YULY BRYANT, PREGU #### [facility] [address] [place] [address] Dr. Tisha Carr Urobilinogen Qn (U) 1.0 {Alma'U}/dL Normal 0.2 - 1.0 [facility] Comment on above: Performed By: #### YULY BRYANT, PREGU #### [facility] [address] [place] [address] Dr. Tisha Carr LACTATE/LACTIC ACIDon 2021 Lactate [Moles/Vol] 1.0 mmol/L Normal 0.4-1.9 [facility] Comment on above: Performed By: #### U RCX #### [facility] [address] [place] [address] Dr. Tisha Carr LIPASEon 06-21-2022 Lipase [Catalytic activity/Vol] 41.0 U/L Critically low 73.0-393.0 [facility] Comment on above: Performed By: #### C RP, CMP, LIPA #### [facility] [address] [address] [address] Tisha Carr URon 06-21-2022 , QUAL Negative Normal NEGATIVE [facility] Comment on above: Performed By: #### E RUR, UMICRO, PREGU #### [facility] [address] [address] [address] Tisha Carr PROF 14(COMP METB)on 022 Albumin [Mass/Vol] 4.0 g/dL Normal 3.4-5.0 [facility] Comment on above: Performed By: #### C RP, CMP, LIPA #### [facility] [address] [address] [address] Tisha Carr Albumin/Globulin [Mass ratio] 1.0 {ratio} Normal [facility] Comment on above: Performed By: #### C RP, CMP, LIPA #### [facility] [address] [address] [address] Tisha Carr ALP [Catalytic activity/Vol] 74 U/L Normal 46-116 [facility] Comment on above: Performed By: #### C RP, CMP, LIPA #### [facility] [address] [place] [address] Dr. Tisha Carr ALT [Catalytic activity/Vol] 33 U/L Normal 14-59 [facility] Comment on above: Performed By: #### C RP, CMP, LIPA #### [facility] [address] [address] [address] Tisha Carr Anion gap [Moles/Vol] 15.8 mmol/L Normal [facility] Comment on above: Performed By: #### C RP, CMP, LIPA #### [facility] [address] [address] [address] Tisha Carr AST [Catalytic activity/Vol] 17 U/L Normal 15-37 [facility] Comment on above: Performed By: #### C RP, CMP, LIPA #### [facility] [address] [address] [address] Tisha Carr Bilirubin [Mass/Vol] 1.3 mg/dL Critically high 0.2-1.0 [facility] Comment on above: Performed By: #### C RP, CMP, LIPA #### [facility] [address] [place] [address] Dr. Tisha Carr Calcium [Mass/Vol] 9.2 mg/dL Normal 8.5-10.1 [facility] Comment on above: Performed By: #### C RP, CMP, LIPA #### [facility] [address] [address] [address] Tisha Carr Chloride [Moles/Vol] 102 mmol/L Normal 98-107 [facility] Comment on above: Performed By: #### C RP, CMP, LIPA #### [facility] [address] [place] [address] Dr. Tisha Carr CO2 [Moles/Vol] 22.7 mmol/L Normal 21.0-32.0 [facility] Comment on above: Performed By: #### C RP, CMP, LIPA #### [facility] [address] [place] [address] Dr. Tisha Carr Creatinine [Mass/Vol] 0.70 mg/dL Normal 0.55-1.02 [facility] Comment on above: Performed By: #### C RP, CMP, LIPA #### [facility] [address] [place] [address] Dr. Tisha Carr EGFR-AF AFGHAN >60 Normal >=60 [facility] Comment on above: Performed By: #### C RP, CMP, LIPA #### [facility] [address] [place] [address] Dr. Tisha Carr EGFR-NON AF AFGHAN >60 Normal >=60 [facility] Comment on above: Performed By: #### C RP, CMP, LIPA #### [facility] [address] [place] [address] Dr. Tisha Carr Globulin (S) [Mass/Vol] 4.2 g/dL Normal [facility] Comment on above: Performed By: #### C RP, CMP, LIPA #### [facility] [address] [place] [address] Dr. Tisha Carr Glucose [Mass/Vol] 93 mg/dL Normal 74-106 [facility] Comment on above: Performed By: #### C RP, CMP, LIPA #### [facility] [address] [place] [address] Dr. Tisha Carr Potassium [Moles/Vol] 3.5 mmol/L Normal 3.5-5.1 [facility] Comment on above: Performed By: #### C RP, CMP, LIPA #### [facility] [address] [place] [address] Dr. Tisha Carr Protein [Mass/Vol] 8.2 g/dL Normal 6.4-8.2 [facility] Comment on above: Performed By: #### C RP, CMP, LIPA #### [facility] [address] [place] [address] Dr. Tisha Carr Sodium [Moles/Vol] 137 mmol/L Normal 136-145 [facility] Comment on above: Performed By: #### C RP, CMP, LIPA #### [facility] [address] [place] [address] Dr. Tisha Carr Urea nitrogen [Mass/Vol] 16.0 mg/dL Normal 7.0-18.0 [facility] Comment on above: Performed By: #### C RP, CMP, LIPA #### [facility] [address] [place] [address] Dr. Tisha Carr Urea nitrogen/Creatinin e [Mass ratio] 22.9 mg/mg Normal [facility] Comment on above: Performed By: #### C RP, CMP, LIPA #### [facility] [address] [place] [address] Dr. Tisha Carr URINE MICROSCOPIC ONLYon BACTERIA TRACE Abnormal NONE SEEN [facility] Comment on above: Performed By: #### E YULY CUMMINS PREGU #### [facility] [address] [place] [address] Dr. Tisha Carr Bacteria identified Cx Nom (U) NOT INDICATED Normal [facility] Comment on above: Performed By: #### E LEIGH CUMMINSICRO, PREGU #### [facility] [address] [address] [address] Tisha Carr CAST NONE SEEN Normal NONE SEEN [facility] Comment on above: Performed By: #### E YULY CUMMINS, PREGU #### [facility] [address] [address] [address] Tisha Carr Crystals LM Nom (Urine sed) NONE SEEN Normal NONE SEEN [facility] Comment on above: Performed By: #### YULY BRYANT, PREGU #### [facility] [address] [place] [address] Dr. Tisha Carr Epithelial cells LM Ql (Urine sed) MODERATE Abnormal NONE SEEN /RARE [facility] Comment on above: Performed By: #### YULY BRYANT, PREGU #### [facility] [address] [place] [address] Dr. Tisha Carr MUCOUS MODERATE Abnormal NONE SEEN [facility] Comment on above: Performed By: #### YULY BRYANT, PREGU #### [facility] [address] [place] [address] Dr. Tisha Carr RBC 0-2 Normal 0-2 [facility] Comment on above: Performed By: #### YULY BRYANT, PREGU #### [facility] [address] [place] [address] Dr. Tisha Carr WBC 0-2 Abnormal NONE SEEN [facility] Comment on above: Performed By: #### YULY BRYANT, PREGU #### [facility] [address] [place] [address] Dr. Tisha Carr PAP ACOG PANEL 2: 21 to 29on 04-11-2022 . . Normal [facility] Comment on above: Performed By: #### U RCX #### [facility] [address] [place] [address] Dr. Tisha Carr Age Gdln ACOG Testing 21-29 Normal [facility] Comment on above: Performed By: #### U RCX #### [facility] [address] [place] [address] Dr. Tisha Carr DIAGNOSIS: Comment Normal [facility] Comment on above: Result Comment: NEGA TIVE FOR INTRAEPITHELIAL LESION OR MALIGNANCY. FUNGAL ORGANISMS MORPHOLOGICALLY CONSISTENT WITH SHEREE SPECIES ARE PRESENT. Performed By: #### U RCX #### [facility] [address] [address] [address] Tisha Carr Methodology: Comment Normal [facility] Comment on above: Result Comment: This liquid based ThinPrep(R) pap test was screened with the use of an image guided system. Performed By: #### U RCX #### [facility] [address] [address] [address] Tisha Carr Note: Comment Normal [facility] Comment on above: Result Comment: The Pap smear is a screening test designed to aid in the detection of premalignant and malignant conditions of the uterine cervix. It is not a diagnostic procedure and should not be used as the sole means of detecting cervical cancer. Both false-positive and false-negative reports do occur. . Performed By: #### U RCX #### [facility] [address] [address] [address] Tisha Carr Performed by: Comment Normal [facility] Comment on above: Result Comment: Caleb Schaeffer, Shoe Salesperson (ASCP) Performed By: #### U RCX #### [facility] [address] [address] [address] Tisha Carr Reflex Criteria: Comment Normal [facility] Comment on above: Result Comment: The HPV DNA reflex criteria were not met with this specimen result therefore, no HPV testing was performed. . Performed By: #### U RCX #### [facility] [address] [address] [address] Tisha Carr Specimen adequacy: Comment Normal [facility] Comment on above: Result Comment: Sati sfactory for evaluation. Endocervical and/or squamous metaplastic cells (endocervical component) are present. Performed By: #### U RCX #### [facility] [address] [address] [address] Tisha Carr CULTURE URINEon 01-08-2022 CULTURE [...] Trimethoprim/Sulfamethox azole <=20 S F Normal [facility] Comment on above: Performed By: #### U RCX #### [facility] [address] [place] [id number] [address] Tisha Carr Covid-19 PCR (CVDTB)on 12-23 SARS-CoV-2 (COVID-19) RNA OC+probe Ql (Unsp spec) Not detected Normal NOT DETECTED [facility] Comment on above: Result Comment: This test is not yet approved or cleared by the [place] FDA. When there are no FDA-approved or cleared tests available, and other criteria are met, FDA can make tests available under an emergency access mechanism called an Emergency Use Authorization (EUA). The EUA for this test is supported by the [employer] of Health and Human Service's (HHS's) declaration [...] SARS-CoV-2. Performed By: #### C VDTBH #### [facility] [address] [place] [id number] [address] Tisha Carr ER URINE PROFILEon 2 Bilirubin Ql (U) MODERATE Abnormal NEGATIVE [facility] Comment on above: Performed By: #### E RUR, UMICRO, PREGU #### [facility] [address] [place] [address] Dr. Tisha Carr Clarity (U) CLEAR Normal CLEAR [facility] Comment on above: Performed By: #### E RUR, UMICRO, PREGU #### [facility] [address] [address] [address] Tisha Carr Color (U) DK. YELLOW Normal YELLOW [facility] Comment on above: Performed By: #### E RUR, UMICRO, PREGU #### [facility] [address] [address] [address] Tisha QUEZADA A micrscopic examina tion will be performed if indicated. Normal [facility] Comment on above: Performed By: #### E RUR, UMICRO, PREGU #### [facility] [address] [place] [address] Dr. Tisha Carr Glucose Ql (U) Negative Normal NEGATIVE [facility] Comment on above: Performed By: #### E RUR, UMICRO, PREGU #### [facility] [address] [place] [address] Dr. Tisha Carr Hemoglobin Ql (U) Negative Normal NEGATIVE [facility] Comment on above: Performed By: #### E RUR, UMICRO, PREGU #### [facility] [address] [address] [address] Tisha Carr Ketones Ql (U) >=80 Abnormal NEGATIVE [facility] Comment on above: Performed By: #### E RUR, UMICRO, PREGU #### [facility] [address] [address] [address] Tisha Carr LEUKOCYTES TRACE Abnormal NEGATIVE [facility] Comment on above: Performed By: #### E RUR, UMICRO, PREGU #### [facility] [address] [place] [address] Dr. Tisha Carr Nitrite Ql (U) Negative Normal NEGATIVE [facility] Comment on above: Performed By: #### E RUR, UMICRO, PREGU #### [facility] [address] [place] [address] Dr. Tisha Carr pH (U) 6.0 [pH] Normal 5-9 [facility] Comment on above: Performed By: #### YULY BYRANT, PREGU #### [facility] [address] [place] [address] Dr. Tisha Carr Protein (U) [Mass/Vol] 100 mg/dL Abnormal NEGATIVE/ TRACE [facility] Comment on above: Performed By: #### YULY BRYANT, PREGU #### [facility] [address] [place] [address] Dr. Tisha Carr SPEC GRAVITY 1.025 Normal 1.005-<=1.025 [facility] Comment on above: Performed By: #### YULY BRYANT, PREGU #### [facility] [address] [place] [address] Dr. Tisha Carr UR MICRO IND INDICATED Normal [facility] Comment on above: Performed By: #### YULY BRYANT, PREGU #### [facility] [address] [place] [address] Dr. Tisha Carr Urobilinogen Qn (U) 1.0 {Alma'U}/dL Normal 0.2 - 1.0 [facility] Comment on above: Performed By: #### YULY BRYANT PREGU #### [facility] [address] [place] [address] Dr. Tisha Carr INFLUENZA A AND B AGon 01-06 INFLUANEGH SEE BELOW Normal [facility] Comment on above: Result Comment: Nega tive for Flu A protein angiten. Infection due to Flu A cannot be ruled out. Flu A angiten in the sample may be below the detection limit of the test. Performed By: #### U RCX #### [facility] [address] [place] [address] Dr. Tisha Carr INFLUBNEGH SEE BELOW Normal [facility] Comment on above: Result Comment: Nega tive for Flu B protein antigen. Infection due to Flu B cannot be ruled out. Flu B antigen in the sample may be below the detection limit of the test. Performed By: #### U RCX #### [facility] [address] [place] [address] Dr. Tisha Carr INFLUENZA A AG Negative Normal NEGATIVE SEE COMMENT [facility] Comment on above: Performed By: #### U RCX #### [facility] [address] [place] [address] Dr. Tisha Carr INFLUENZA B AG Negative Normal NEGATIVE SEE COMMENT [facility] Comment on above: Performed By: #### U RCX #### [facility] [address] [place] [address] Dr. Tisha Carr INTERNAL CONTROLS Within Normal Limits Normal Wi thin Normal Limits [facility] Comment on above: Performed By: #### U RCX #### [facility] [address] [place] [address] Dr. Tisha Carr URon 01-06-2022 , QUAL Negative Normal NEGATIVE [facility] Comment on above: Performed By: #### E RUR, UMICRO, PREGU #### [facility] [address] [place] [address] Dr. Tisha Carr URINE MICROSCOPIC ONLYon BACTERIA SMALL Abnormal NONE SEEN [facility] Comment on above: Performed By: #### U RCX #### [facility] [address] [place] [address] Dr. Tisha Carr Bacteria identified Cx Nom (U) INDICATED Normal [facility] Comment on above: Performed By: #### U RCX #### [facility] [address] [place] [address] Dr. Tisha Carr CAST NONE SEEN Normal NONE SEEN [facility] Comment on above: Performed By: #### U RCX #### [facility] [address] [place] [address] Dr. Tisha Carr Crystals LM Nom (Urine sed) NONE SEEN Normal NONE SEEN [facility] Comment on above: Performed By: #### U RCX #### [facility] [address] [place] [address] Dr. Tisha Carr Epithelial cells LM Ql (Urine sed) MANY Abnormal NONE SEEN /RARE [facility] Comment on above: Performed By: #### U RCX #### [facility] [address] [place] [address] Dr. Tisah Carr MUCOUS LARGE Abnormal NONE SEEN [facility] Comment on above: Performed By: #### U RCX #### [facility] [address] [place] [address] Dr. Tisha Carr RBC NONE SEEN Abnormal 0-2 [facility] Comment on above: Performed By: #### U RCX #### [facility] [address] [place] [address] Dr. Tisha Carr WBC 5-10 Abnormal NONE SEEN [facility] Comment on above: Performed By: #### U RCX #### [facility] [address] [place] [address] Dr. Tisha Carr Vital Signs Date Time Vital Sign Value Performing Clinician Faci lity 09-22-2023 16:01-0500 Body weight 89.09 kg Belkis Jessica DO Work Phone: [facility] 09-22-2023 16:01-0500 Diastolic blood pressure 70 mm[Hg] Belkis Jessica DO Work Phone: [facility] 09-22-2023 16:01-0500 Systolic blood pressure 120 mm[Hg] Belkis Jessica DO Work Phone: [facility] Encounters Encounter Date Encounter Type Care Provider Facility Start: 12-22-2023 End: 12-22-2023 ambulatory BELKIS JESSICA Not Available Start: 12-02-2023 End: 12-02-2023 ambulatory BELKIS JESSICA Not Available Start: 11-17-2023 End: 11-17-2023 ambulatory BELKIS JESSICA Not Available Start: 10-20-2023 End: 10-20-2023 ambulatory BELKIS JESSICA Not Available Start: 09-22-2023 End: 09-22-2023 ambulatory BELKIS JESSICA Not Available Start: 09-22-2023 End: 09-22-2023 Patient encounter procedure Belkis Jessica DO Work Phone: [facility] Start: 09-22-2023 End: 09-22-2023 Periodic preventive med [...] stick/tabl et rgnt non-auto w/o micrscp Belkisdora Lopez DO Work Phone: Start: 09-22-2023 IGP,APTIMA HPV,AGE GDLN Belkis Lopez DO Work Phone: Plan of Treatment Date Care Activity Detail Author Start: 10-20-2023 End: 10-20-2023 Patient encounter procedure 10/20/2023 3:10 PM EST Routine [facility] [address] [facility] [place] [address] Belkis Lopez, [address] [place] [address] [facility] Start: 09-22-2023 End: 09-22-2024 Alpha fetoprotein, maternal Alpha fetoprotein, maternal Lab Routine Second trimester Need for maternal serum alpha-protein (MSAFP) screening Expected: 09/22/2023 (Approximate), Expires: 09/22/2024 [facility] Comment on above: Expected: 09/22/2023 (Approximate), Expires: 09/22/2024 Start: 09-22-2023 End: 09-22-2024 US for US OB ANATOMY SINGLE W US OB CERVICAL LENGTH Imaging Routine Screening, , for anatomic survey Expected: 09/22/2023 (Approximate), Expires: 09/22/2024 [facility] Comment on above: Expected: 09/22/2023 (Approximate), Expires: 09/22/2024 CHLAMYDIA TRACHOMATI S (GENITO/STI) CHLAMYDIA TRACHOMATIS (GENITO/STI) Lab Routine Exposure to STD Ordered: 09/22/2023 [facility] Comment on above: Ordered: 09/22/2023 Cytology Cervical or vaginal smear or scraping study Pap Smear Pathology and Cytology Routine Well woman exam with routine gynecological exam Ordered: 09/22/2023 [facility] Comment on above: Ordered: 09/22/2023 Neisseria gonorrhoea e DNA [Presence] in Unspecified specimen by OC with probe detection Neisseria gonorrhea DNA probe, direct Lab Routine Exposure to STD Ordered: 09/22/2023 [facility] Comment on above: Ordered: 09/22/2023 SURESWAB(R) ADVANCED VAGINITIS PLUS, TMA SURESWAB(R) ADVANCED VAGINITIS PLUS, TMA Pathology and Cytology Routine Exposure to STD Ordered: 09/22/2023 [facility] Work Phone: Comment on above: Ordered: 09/22/2023 Payers Date Payer Category Payer Medicaid [employer] [place] [employer] [id number] 2021-Present [address] [place] [address] [id number] 2000 Unknown [id number] 2000 Unknown [id number] [id number] 2000 Unknown [id number] [id number] 2000 Unknown [id number] [id number] 2000 Unknown [id number] [id number] 2000 Unknown [id number] [id number] 2000 Unknown [id number] [id number] 2000 Unknown [id number] 2.16.840.1.575477.3.579.2.9 2000 Unknown [id number] 2.16.840.1.148243.3.579.2.9 2000 Unknown [id number] 2.16.840.1.760679.3.579.2.9 2000 Unknown [id number] 2.16.840.1.981284.3.579.2.9 2000 Unknown [id number] [id number] 1959 Unknown [id number] Social History Date Type Detail Facility Tobacco smoking stat [facility] Tobacco smoking consumption unknown [facility] Start: 05-22-2023 [facility] Start: 2000 Sex Assigned At Female [facility] Start: 07-03-2023 Gender identity Identifies as female gender (finding) [facility] Sexual orientation Not on file [facility] History of Present illness Narrative 09-22-2023 Nora Riggs, PARTS COUNTER SALESPERSON - 09/22/2023 3:20 PM EST Note Date [...] Problems Past Medical History: Diagnosis Date Asthma ([facility] No family history on file. Social History [...] nursing note reviewed. Exam conducted with a retail merchandising manager present. Vitals: There is no height or [...] pital DATE CREATED AUTHOR AUTHOR'S ORGANIZ ATION 12/23/2023 [facility] EPIC Reason for Visit (unrecogniz ed [...] BE BASED ON THE PRIMARY CLINICAL RECORDS. [employer] provides no warranty or guarantee of the accuracy or completeness of information in this document.
[2023-12-24 10:02] VITALS: BP 137/97; PULSE 93
[2023-12-24 10:13] VITALS: BP 133/85; PULSE 83
[2023-12-24 10:23] VITALS: BP 135/86; PULSE 101
[2023-12-24 10:33] VITALS: BP 141/84; PULSE 98
[2023-12-24 10:44] VITALS: BP 137/94; PULSE 101
== END 2023-12-24 11:02 | disposition home or self-care (01) ==
LOC: FBCO 07:13 → FBC 09:54
PROVIDERS: PCP Nurse Practitioner Family; Visit Provider Obstetrics & Gynecology
DX: O24.419 Gestational diabetes mellitus in pregnancy, unspecified control (principal)
CPT/HCPCS: 59025

== ENCOUNTER 2023-12-27 08:50 | Outpatient (OUT) | payer OTHER, SELFPAY ==
--- NOTE | 2023-12-27 | US_ITS ---
[address] [address] Patient Name: FLORENCIA NEELY MRN: [id number] date: 2000 Sex: F Assigned Patient [facility]: [facility] Current Patient Location: [facility] Accession/Order Number: [id number] Exam Date: 12/27/2023 11:15 Report Date: 12/29/2023 07:36 At the request of: BELKIS BRAND Procedure: US OB BPP w non-stress EXAMINATION: US OB BPP w non-stress HISTORY: INSULIN CONTROLLED GESTATIONAL DIABETES O24.414 COMPARISON: 12/20/2023 TECHNIQUE: Ultrasound biophysical profile was performed in the radiology department. FINDINGS: BREATHING MOVEMENTS: 0.0 GROSS BODY MOVEMENTS: 2.0 TONE: 2.0 QUALITATIVE AMNIOTIC FLUID VOLUME: 2.0 PRESENTATION: CEPHALIC HEART RATE: 129.8 bpm H.B./min AMNIOTIC FLUID VOLUME: 12.1 cm cm GESTATIONAL AGE: 33 weeks 2 days CONCLUSION: Total biophysical profile score: 6.0 Electronically authenticated by: LOUISE MOHAMUD Date: 12/29/2023 07:36
--- OUTSIDE RECORDS SUMMARY | 2023-12-27 09:10 | XMS_ITS | CCD ---
Author Organization [facility] Care Team Providers Care [employer] Head Former Name Role Phone JOSE ., LITA Admitting [...] (1 source) Ibuprofen Drug Allergy 01-15-2016 [facility] Repository (2 sources) Ibuprofen Drug Allergy 07-10-2023 [...] GDLNon AGE GDLN ACOG TESTING Note . [facility] Comment on above: TESTS RESULT FLAG UN ITS REF RANGE LAB Clinician Provided Cytology Information Source.............Cervix Other.............. No. of containers..01 ThinPrep Vial Age Algo ACOG Bina... - 01 FLAG LEGEND: L-Low Normal,H-High Normal,LL-Alert Low,HH-Alert High <-Panic Low,>-Panic High,A-Abnormal,AA-Critical Abnormal Performed at: 01 =G [address] [id number] Lali Holloway MD, IGP, RFX APTIMA HPV ASCU Note . [facility] Comment on above: TESTS RESULT FLAG UN ITS REF RANGE LAB DIAGNOSIS: 02 NEGATIVE FOR INTRAEPITHELIAL LESION OR MALIGNANCY. Specimen adequacy: 02 Satisfactory for evaluation. No endocervical component is identified. An endocervical component is not commonly seen in the patient. Performed by: 02 Kieran Pickering, Loan Servicing Specialist ([facility]) . 02 Note: Note 02 [...] Low,>-Panic High,A-Abnormal,AA-Critical Abnormal Performed at: [address] [facility] [address] [place] [address] Lali Holloway MD, Performed at: =G - [facility] [address], [place] [id number] Wire Brush Maker: Lali Holloway MD, Phone: [phone] Performed at: [facility] [address] [id number] Wire Brush Maker: Lali Holloway MD, Phone: [phone] [facility] Urinalysis macro (dipstick) panel (U)on 09-22-2023 Bilirubin, UA Negative Negative - 4(70) +++ mg/dL [facility] Blood, UA Negative Negative - 50 Flash/mcL [facility] Clarity, UA Clear [facility] Color, UA Yellow [facility] Glucose, UA Negative Negative - 1999(110) ++++ mg/dL [facility] Interpretation and review of laboratory results Abnormal [facility] Ketones, UA Positive Negative - 160(16) ++++ mg/dL [facility] Leukocytes, UA Negative Negative - 500+++ Taylor/mcL [facility] Nitrite, UA Negative Negative - Positive [facility] pH, UA 5.5 5 - 9 [facility] Protein, UA Negative Negative - 1999(20) ++++ mg/dL [facility] Spec Grav, UA 1.020 1 - 1.03 [facility] Urobilinogen, UA 0.2 0.2 - 12 mg/dL [facility] COMPLIANCE DRUG SCREENon PDF . Normal [facility] Comment on above: Performed By: #### U RCX #### [facility] [address] [address] [address] Tisha Carr Summary FINAL [facility] Comment on above: Result Comment: = TOXASSURE [...] test is not intended to distinguish between altkl-3-fwbebsqifrigydjmckon, the predominant form of THC in most herbal or marijuana-based products, and dkwme-6-tirlymzaymnmqthoxuqc. Methylphenidate PRESENT UNEXPECTED Ritalinic Acid PRESENT UNEXPECTED [...] = Performed By: #### U RCX #### [facility] [address] [place] [address] Dr. Tisha Carr URIC ACID RAND URINEon 10-31 Uric Acid, Urine 67.3 mg/dL Normal Not Estab. [facility] Comment on above: Performed By: #### U RCX #### [facility] [address] [place] [address] Dr. Tisha Carr DRUG SCREEN RAPID (URINE)on 10-30-2022 AMP Negative Normal NEGATIVE [facility] Comment on above: Performed By: #### U RCX #### [facility] [address] [place] [address] Dr. Tisha Carr BAR Negative Normal NEGATIVE [facility] Comment on above: Performed By: #### U RCX #### [facility] [address] [place] [address] Dr. Tisha Carr BUP Negative Normal NEGATIVE [facility] Comment on above: Performed By: #### U RCX #### [facility] [address] [place] [address] Dr. Tisha Carr BZO Negative Normal NEGATIVE [facility] Comment on above: Performed By: #### U RCX #### [facility] [address] [place] [address] Dr. Tisha Carr SOCRATES Negative Normal NEGATIVE [facility] Comment on above: Performed By: #### U RCX #### [facility] [address] [place] [address] Dr. Tisha Carr CUT-OFFS SEE BELOW Normal [facility] Comment on above: Result Comment: AMP (Amphetamine): 500ng/mL, BAR (Barbituates): 200 ng/mL, BZO (Benzodiazepines): 150 ng/mL, BUP (Buprenorphine): 10 ng/mL, SOCRATES (Cocaine): 150 ng/mL, mAMP (Methamphetamine): 500 ng/mL, MTD (Methadone): 200 ng/mL, OPI (Opiates): 100 ng/mL, OXY (Oxycodone): 100 ng/mL, PCP (Phencyclidine): 25 ng/mL, PPX (Propoxyphene): 300 ng/mL, THC (Cannabinoids): 50 ng/mL, TCA (Trycyclic Antidepressants): 300 ng/mL Performed By: #### U RCX #### [facility] [address] [place] [address] Dr. Tisha Carr DRUG CUT HEADER DRUG CLASS TEST SYST EM CUT-OFF CONCENTRATIONS ARE FOLLOWS: Normal [facility] Comment on above: Performed By: #### U RCX #### [facility] [address] [place] [address] Dr. Tisha Carr mAMP Negative Normal NEGATIVE [facility] Comment on above: Performed By: #### U RCX #### [facility] [address] [place] [address] Dr. Tisha Carr MTD Negative Normal NEGATIVE [facility] Comment on above: Performed By: #### U RCX #### [facility] [address] [place] [address] Dr. Tisha Carr OPI Negative Normal NEGATIVE [facility] Comment on above: Performed By: #### U RCX #### [facility] [address] [place] [address] Dr. Tisha Carr OXY Negative Normal NEGATIVE [facility] Comment on above: Performed By: #### U RCX #### [facility] [address] [address] [address] Tisha Carr PCP Negative Normal NEGATIVE [facility] Comment on above: Performed By: #### U RCX #### [facility] [address] [place] [address] Dr. Tisha Carr PPX Negative Normal NEGATIVE [facility] Comment on above: Performed By: #### U RCX #### [facility] [address] [place] [address] Dr. Tisha Carr TCA Negative Normal NEGATIVE [facility] Comment on above: Performed By: #### U RCX #### [facility] [address] [place] [address] Dr. Tisha Carr THC Positive Abnormal NEGATIVE [facility] Comment on above: Performed By: #### U RCX #### [facility] [address] [place] [address] Dr. Tisha Carr CBC AUTO DIFFon 06-21-2022 BASO # 0.0 103/ul Normal 0.0-0.1 [facility] Comment on above: Performed By: #### U RCX #### [facility] [address] [place] [address] Dr. Tisha Carr Basophils/100 WBC (Bld) 0.2 % Normal 0.2-2.0 [facility] Comment on above: Performed By: #### U RCX #### [facility] [address] [place] [address] Dr. Tisha Carr EO # 0.0 103/ul Normal 0.0-0.7 [facility] Comment on above: Performed By: #### U RCX #### [facility] [address] [place] [address] Dr. Tisha Carr Eosinophils/100 WBC (Bld) 0.2 % Critically low 0.9-7.0 [facility] Comment on above: Performed By: #### U RCX #### [facility] [address] [place] [address] Dr. Tisha Carr Erythrocyte distribution width (RBC) [Ratio] 12.3 % Normal 11.0-15.0 [facility] Comment on above: Performed By: #### U RCX #### [facility] [address] [place] [address] Dr. Tisha Carr Hematocrit (Bld) [Volume fraction] 43.1 % Normal 36.0-48.0 [facility] Comment on above: Performed By: #### U RCX #### [facility] [address] [place] [address] Dr. Tisha Carr Hemoglobin (Bld) [Mass/Vol] 15.1 g/dL Normal 12.0-16.0 [facility] Comment on above: Performed By: #### U RCX #### [facility] [address] [place] [address] Dr. Tisha Carr IG # 0.06 10e3/ul Critically high 0.00-0.03 [facility] Comment on above: Performed By: #### U RCX #### [facility] [address] [place] [address] Dr. Tisha Carr IG % 0.5 % Normal 0.0-0.5 [facility] Comment on above: Performed By: #### U RCX #### [facility] [address] [place] [address] Dr. Tisha Carr LYMPH # 1.0 103/ul Critically low 1.2-3.8 [facility] Comment on above: Performed By: #### U RCX #### [facility] [address] [place] [address] Dr. Tisha Carr Lymphocytes/100 WBC (Bld) 8.2 % Critically low 20.5-60.0 [facility] Comment on above: Performed By: #### U RCX #### [facility] [address] [place] [address] Dr. Tisha Carr MANUAL DIFF REQ NO Normal [facility] Comment on above: Performed By: #### U RCX #### [facility] [address] [place] [address] Dr. Tisha Carr MCH (RBC) [Entitic mass] 30.3 pg Normal 26.7-34.0 [facility] Comment on above: Performed By: #### U RCX #### [facility] [address] [place] [address] Dr. Tisha Carr MCHC (RBC) [Mass/Vol] 35.0 g/dL Normal 29.9-35.2 [facility] Comment on above: Performed By: #### U RCX #### [facility] [address] [place] [address] Dr. Tisha Carr MCV (RBC) [Entitic vol] 86.4 fL Normal 81.0-99.0 [facility] Comment on above: Performed By: #### U RCX #### [facility] [address] [place] [address] Dr. Tisha Carr MONO # 0.8 103/ul Normal 0.3-0.8 [facility] Comment on above: Performed By: #### U RCX #### [facility] [address] [place] [address] Dr. Tisha Carr Monocytes/100 WBC (Bld) 6.0 % Normal 1.7-12.0 [facility] Comment on above: Performed By: #### U RCX #### [facility] [address] [place] [address] Dr. Tisha Carr NEUT # 10.8 103/ul Critically high 1.4-6.5 [facility] Comment on above: Performed By: #### U RCX #### [facility] [address] [place] [address] Dr. Tisha Carr Neutrophils/100 WBC (Bld) 84.9 % Critically high 43.0-75.0 [facility] Comment on above: Performed By: #### U RCX #### [facility] [address] [place] [address] Dr. Tisha Carr Platelet mean volume (Bld) [Entitic vol] 10.8 fL Normal 9.5-13.5 [facility] Comment on above: Performed By: #### U RCX #### [facility] [address] [place] [address] Dr. Tisha Carr PLT 237 103/ul Normal 150-450 [facility] Comment on above: Performed By: #### U RCX #### [facility] [address] [place] [address] Dr. Tisha Carr RBC 4.99 106/ul Normal 4.20-5.40 [facility] Comment on above: Performed By: #### U RCX #### [facility] [address] [place] [address] Dr. Tisha Carr WBC 12.7 103/ul Critically high 4.0-11.0 [facility] Comment on above: Performed By: #### U RCX #### [facility] [address] [place] [address] Dr. Tisha Carr CRPon 06-21-2022 CRP 10.0 mg/dL Critically high <=1.0 [facility] Comment on above: Performed By: #### C RP, CMP, LIPA #### [facility] [address] [place] [address] Dr. Tisha Carr ER URINE PROFILEon 2 Bilirubin Ql (U) SMALL Abnormal NEGATIVE [facility] Comment on above: Performed By: #### E RUR, UMICRO, PREGU #### [facility] [address] [address] [address] Tisha Carr Clarity (U) CLEAR Normal CLEAR [facility] Comment on above: Performed By: #### E RUR, UMICRO, PREGU #### [facility] [address] [address] [address] Tisha Carr Color (U) YELLOW Normal YELLOW [facility] Comment on above: Performed By: #### E RUR, UMICRO, PREGU #### [facility] [address] [address] [address] Tisha QUEZADA A micrscopic examina tion will be performed if indicated. Normal [facility] Comment on above: Performed By: #### E RUR, UMICRO, PREGU #### [facility] [address] [address] [address] Tisha Carr Glucose Ql (U) Negative Normal NEGATIVE [facility] Comment on above: Performed By: #### E RUR, UMICRO, PREGU #### [facility] [address] [address] [address] Tisha Carr Hemoglobin Ql (U) MODERATE Abnormal NEGATIVE [facility] Comment on above: Performed By: #### E RUR, UMICRO, PREGU #### [facility] [address] [address] [address] Tisha Carr Ketones Ql (U) 80 mg/dl Abnormal NEGATIVE [facility] Comment on above: Performed By: #### E RUR, UMICRO, PREGU #### [facility] [address] [address] [address] Tisha Carr LEUKOCYTES Negative Normal NEGATIVE [facility] Comment on above: Performed By: #### E RUR, UMICRO, PREGU #### [facility] [address] [address] [address] Tisha Carr Nitrite Ql (U) Negative Normal NEGATIVE [facility] Comment on above: Performed By: #### E YULY CUMMINS, PREGU #### [facility] [address] [place] [address] Dr. Tisha Carr pH (U) 6.0 [pH] Normal 5-9 [facility] Comment on above: Performed By: #### LEIGH BRYANTICELLE, PREGU #### [facility] [address] [place] [address] Dr. Tisha Carr SPEC GRAVITY 1.025 Normal 1.005-<=1.025 [facility] Comment on above: Performed By: #### Sofi RUYULY Leone, PREGU #### [facility] [address] [place] [address] Dr. Tisha Carr UA PROTEIN TRACE Normal NEGATIVE/ TRACE [facility] Comment on above: Performed By: #### YULY BRYANT, PREGU #### [facility] [address] [place] [address] Dr. Tisha Carr UR MICRO IND INDICATED Normal [facility] Comment on above: Performed By: #### YULY BRYANT, PREGU #### [facility] [address] [place] [address] Dr. Tisha Carr Urobilinogen Qn (U) 1.0 {Alma'U}/dL Normal 0.2 - 1.0 [facility] Comment on above: Performed By: #### YULY BRYANT, PREGU #### [facility] [address] [place] [address] Dr. Tisha Carr LACTATE/LACTIC ACIDon 2021 Lactate [Moles/Vol] 1.0 mmol/L Normal 0.4-1.9 [facility] Comment on above: Performed By: #### U RCX #### [facility] [address] [place] [address] Dr. Tisha Carr LIPASEon 06-21-2022 Lipase [Catalytic activity/Vol] 41.0 U/L Critically low 73.0-393.0 [facility] Comment on above: Performed By: #### C RP, CMP, LIPA #### [facility] [address] [address] [address] Tisha Carr URon 06-21-2022 , QUAL Negative Normal NEGATIVE [facility] Comment on above: Performed By: #### E RUR, UMICRO, PREGU #### [facility] [address] [address] [address] Tisha Carr PROF 14(COMP METB)on 022 Albumin [Mass/Vol] 4.0 g/dL Normal 3.4-5.0 [facility] Comment on above: Performed By: #### C RP, CMP, LIPA #### [facility] [address] [address] [address] Tisha Carr Albumin/Globulin [Mass ratio] 1.0 {ratio} Normal [facility] Comment on above: Performed By: #### C RP, CMP, LIPA #### [facility] [address] [address] [address] Tisha Carr ALP [Catalytic activity/Vol] 74 U/L Normal 46-116 [facility] Comment on above: Performed By: #### C RP, CMP, LIPA #### [facility] [address] [place] [address] Dr. Tisha Carr ALT [Catalytic activity/Vol] 33 U/L Normal 14-59 [facility] Comment on above: Performed By: #### C RP, CMP, LIPA #### [facility] [address] [address] [address] Tisha Carr Anion gap [Moles/Vol] 15.8 mmol/L Normal [facility] Comment on above: Performed By: #### C RP, CMP, LIPA #### [facility] [address] [address] [address] Tisha Carr AST [Catalytic activity/Vol] 17 U/L Normal 15-37 [facility] Comment on above: Performed By: #### C RP, CMP, LIPA #### [facility] [address] [address] [address] Tisha Carr Bilirubin [Mass/Vol] 1.3 mg/dL Critically high 0.2-1.0 [facility] Comment on above: Performed By: #### C RP, CMP, LIPA #### [facility] [address] [place] [address] Dr. Tisha Carr Calcium [Mass/Vol] 9.2 mg/dL Normal 8.5-10.1 [facility] Comment on above: Performed By: #### C RP, CMP, LIPA #### [facility] [address] [address] [address] Tisha Carr Chloride [Moles/Vol] 102 mmol/L Normal 98-107 [facility] Comment on above: Performed By: #### C RP, CMP, LIPA #### [facility] [address] [place] [address] Dr. Tisha Carr CO2 [Moles/Vol] 22.7 mmol/L Normal 21.0-32.0 [facility] Comment on above: Performed By: #### C RP, CMP, LIPA #### [facility] [address] [place] [address] Dr. Tisha Carr Creatinine [Mass/Vol] 0.70 mg/dL Normal 0.55-1.02 [facility] Comment on above: Performed By: #### C RP, CMP, LIPA #### [facility] [address] [place] [address] Dr. Tisha Carr EGFR-AF BANGLADESHI >60 Normal >=60 [facility] Comment on above: Performed By: #### C RP, CMP, LIPA #### [facility] [address] [place] [address] Dr. Tisha Carr EGFR-NON AF BANGLADESHI >60 Normal >=60 [facility] Comment on above: Performed By: #### C RP, CMP, LIPA #### [facility] [address] [place] [address] Dr. Tisha Carr Globulin (S) [Mass/Vol] 4.2 g/dL Normal [facility] Comment on above: Performed By: #### C RP, CMP, LIPA #### [facility] [address] [place] [address] Dr. Tisha Carr Glucose [Mass/Vol] 93 mg/dL Normal 74-106 [facility] Comment on above: Performed By: #### C RP, CMP, LIPA #### [facility] [address] [place] [address] Dr. Tisha Carr Potassium [Moles/Vol] 3.5 mmol/L Normal 3.5-5.1 [facility] Comment on above: Performed By: #### C RP, CMP, LIPA #### [facility] [address] [place] [address] Dr. Tisha Carr Protein [Mass/Vol] 8.2 g/dL Normal 6.4-8.2 [facility] Comment on above: Performed By: #### C RP, CMP, LIPA #### [facility] [address] [place] [address] Dr. Tisha Carr Sodium [Moles/Vol] 137 mmol/L Normal 136-145 [facility] Comment on above: Performed By: #### C RP, CMP, LIPA #### [facility] [address] [place] [address] Dr. Tisha Carr Urea nitrogen [Mass/Vol] 16.0 mg/dL Normal 7.0-18.0 [facility] Comment on above: Performed By: #### C RP, CMP, LIPA #### [facility] [address] [place] [address] Dr. Tisha Carr Urea nitrogen/Creatinin e [Mass ratio] 22.9 mg/mg Normal [facility] Comment on above: Performed By: #### C RP, CMP, LIPA #### [facility] [address] [place] [address] Dr. Tisha Carr URINE MICROSCOPIC ONLYon BACTERIA TRACE Abnormal NONE SEEN [facility] Comment on above: Performed By: #### E YULY CUMMINS PREGU #### [facility] [address] [place] [address] Dr. Tisha Carr Bacteria identified Cx Nom (U) NOT INDICATED Normal [facility] Comment on above: Performed By: #### E LEIGH CUMMINSICRO, PREGU #### [facility] [address] [address] [address] Tisha Carr CAST NONE SEEN Normal NONE SEEN [facility] Comment on above: Performed By: #### E YULY CUMMINS, PREGU #### [facility] [address] [address] [address] Tisha Carr Crystals LM Nom (Urine sed) NONE SEEN Normal NONE SEEN [facility] Comment on above: Performed By: #### YULY BRYANT, PREGU #### [facility] [address] [place] [address] Dr. Tisha Carr Epithelial cells LM Ql (Urine sed) MODERATE Abnormal NONE SEEN /RARE [facility] Comment on above: Performed By: #### YULY BRYANT, PREGU #### [facility] [address] [place] [address] Dr. Tisha Carr MUCOUS MODERATE Abnormal NONE SEEN [facility] Comment on above: Performed By: #### YULY BRYANT, PREGU #### [facility] [address] [place] [address] Dr. Tisha Carr RBC 0-2 Normal 0-2 [facility] Comment on above: Performed By: #### YULY BRYANT, PREGU #### [facility] [address] [place] [address] Dr. Tisha Carr WBC 0-2 Abnormal NONE SEEN [facility] Comment on above: Performed By: #### YULY BRYANT, PREGU #### [facility] [address] [place] [address] Dr. Tisha Carr PAP ACOG PANEL 2: 21 to 29on 04-11-2022 . . Normal [facility] Comment on above: Performed By: #### U RCX #### [facility] [address] [place] [address] Dr. Tisha Carr Age Gdln ACOG Testing 21-29 Normal [facility] Comment on above: Performed By: #### U RCX #### [facility] [address] [place] [address] Dr. Tisha Carr DIAGNOSIS: Comment Normal [facility] Comment on above: Result Comment: NEGA TIVE FOR INTRAEPITHELIAL LESION OR MALIGNANCY. FUNGAL ORGANISMS MORPHOLOGICALLY CONSISTENT WITH SHEREE SPECIES ARE PRESENT. Performed By: #### U RCX #### [facility] [address] [address] [address] Tisha Carr Methodology: Comment Normal [facility] Comment on above: Result Comment: This liquid based ThinPrep(R) pap test was screened with the use of an image guided system. Performed By: #### U RCX #### [facility] [address] [address] [address] Tisha Carr Note: Comment Normal [facility] Comment on above: Result Comment: The Pap smear is a screening test designed to aid in the detection of premalignant and malignant conditions of the uterine cervix. It is not a diagnostic procedure and should not be used as the sole means of detecting cervical cancer. Both false-positive and false-negative reports do occur. . Performed By: #### U RCX #### [facility] [address] [address] [address] Tisha Carr Performed by: Comment Normal [facility] Comment on above: Result Comment: Caleb Schaeffer, Loan Servicing Specialist (ASCP) Performed By: #### U RCX #### [facility] [address] [address] [address] Tisha Carr Reflex Criteria: Comment Normal [facility] Comment on above: Result Comment: The HPV DNA reflex criteria were not met with this specimen result therefore, no HPV testing was performed. . Performed By: #### U RCX #### [facility] [address] [address] [address] Tisha Carr Specimen adequacy: Comment Normal [facility] Comment on above: Result Comment: Sati sfactory for evaluation. Endocervical and/or squamous metaplastic cells (endocervical component) are present. Performed By: #### U RCX #### [facility] [address] [address] [address] Tisha Carr CULTURE URINEon 01-08-2022 CULTURE [...] Trimethoprim/Sulfamethox azole <=20 S F Normal [facility] Comment on above: Performed By: #### U RCX #### [facility] [address] [place] [id number] [address] Tisha Carr Covid-19 PCR (CVDTB)on 12-23 SARS-CoV-2 (COVID-19) RNA OC+probe Ql (Unsp spec) Not detected Normal NOT DETECTED [facility] Comment on above: Result Comment: This test is not yet approved or cleared by the [place] FDA. When there are no FDA-approved or cleared tests available, and other criteria are met, FDA can make tests available under an emergency access mechanism called an Emergency Use Authorization (EUA). The EUA for this test is supported by the [employer] [place] of Health and Human Service's (HHS's) declaration [...] SARS-CoV-2. Performed By: #### C VDTBH #### [facility] [address] [place] [id number] Tisha Carr ER URINE PROFILEon 2 Bilirubin Ql (U) MODERATE Abnormal NEGATIVE [facility] Comment on above: Performed By: #### E RUR, UMICRO, PREGU #### [facility] [address] [place] [address] Dr. Tisha Carr Clarity (U) CLEAR Normal CLEAR [facility] Comment on above: Performed By: #### E RUR, UMICRO, PREGU #### [facility] [address] [address] [address] Tisha Carr Color (U) DK. YELLOW Normal YELLOW [facility] Comment on above: Performed By: #### E RUR, UMICRO, PREGU #### [facility] [address] [address] [address] Tisha QUEZADA A micrscopic examina tion will be performed if indicated. Normal [facility] Comment on above: Performed By: #### E RUR, UMICRO, PREGU #### [facility] [address] [place] [address] Dr. Tisha Carr Glucose Ql (U) Negative Normal NEGATIVE [facility] Comment on above: Performed By: #### E RUR, UMICRO, PREGU #### [facility] [address] [place] [address] Dr. Tisha Carr Hemoglobin Ql (U) Negative Normal NEGATIVE [facility] Comment on above: Performed By: #### E RUR, UMICRO, PREGU #### [facility] [address] [address] [address] Tisha Carr Ketones Ql (U) >=80 Abnormal NEGATIVE [facility] Comment on above: Performed By: #### E RUR, UMICRO, PREGU #### [facility] [address] [address] [address] Tisha Carr LEUKOCYTES TRACE Abnormal NEGATIVE [facility] Comment on above: Performed By: #### E RUR, UMICRO, PREGU #### [facility] [address] [place] [address] Dr. Tisha Carr Nitrite Ql (U) Negative Normal NEGATIVE [facility] Comment on above: Performed By: #### E RUR, UMICRO, PREGU #### [facility] [address] [place] [address] Dr. Tisha Carr pH (U) 6.0 [pH] Normal 5-9 [facility] Comment on above: Performed By: #### YULY BRYANT, PREGU #### [facility] [address] [place] [address] Dr. Tisha Carr Protein (U) [Mass/Vol] 100 mg/dL Abnormal NEGATIVE/ TRACE [facility] Comment on above: Performed By: #### YULY BRYANT, PREGU #### [facility] [address] [place] [address] Dr. Tisha Carr SPEC GRAVITY 1.025 Normal 1.005-<=1.025 [facility] Comment on above: Performed By: #### YULY BRYANT, PREGU #### [facility] [address] [place] [address] Dr. Tisha Carr UR MICRO IND INDICATED Normal [facility] Comment on above: Performed By: #### YULY BRYANT, PREGU #### [facility] [address] [place] [address] Dr. Tisha Carr Urobilinogen Qn (U) 1.0 {Alma'U}/dL Normal 0.2 - 1.0 [facility] Comment on above: Performed By: #### YULY BRYANT PREGU #### [facility] [address] [place] [address] Dr. Tisha Carr INFLUENZA A AND B AGon 01-06 INFLUANEGH SEE BELOW Normal [facility] Comment on above: Result Comment: Nega tive for Flu A protein angiten. Infection due to Flu A cannot be ruled out. Flu A angiten in the sample may be below the detection limit of the test. Performed By: #### U RCX #### [facility] [address] [place] [address] Dr. Tisha Carr INFLUBNEGH SEE BELOW Normal [facility] Comment on above: Result Comment: Nega tive for Flu B protein antigen. Infection due to Flu B cannot be ruled out. Flu B antigen in the sample may be below the detection limit of the test. Performed By: #### U RCX #### [facility] [address] [place] [address] Dr. Tisha Carr INFLUENZA A AG Negative Normal NEGATIVE SEE COMMENT [facility] Comment on above: Performed By: #### U RCX #### [facility] [address] [place] [address] Dr. Tisha Carr INFLUENZA B AG Negative Normal NEGATIVE SEE COMMENT [facility] Comment on above: Performed By: #### U RCX #### [facility] [address] [place] [address] Dr. Tisha Carr INTERNAL CONTROLS Within Normal Limits Normal Wi thin Normal Limits [facility] Comment on above: Performed By: #### U RCX #### [facility] [address] [place] [address] Dr. Tisha Carr URon 01-06-2022 , QUAL Negative Normal NEGATIVE [facility] Comment on above: Performed By: #### E RUR, UMICRO, PREGU #### [facility] [address] [place] [address] Dr. Tisha Carr URINE MICROSCOPIC ONLYon BACTERIA SMALL Abnormal NONE SEEN [facility] Comment on above: Performed By: #### U RCX #### [facility] [address] [place] [address] Dr. Tisha Carr Bacteria identified Cx Nom (U) INDICATED Normal [facility] Comment on above: Performed By: #### U RCX #### [facility] [address] [place] [address] Dr. Tisha Carr CAST NONE SEEN Normal NONE SEEN [facility] Comment on above: Performed By: #### U RCX #### [facility] [address] [place] [address] Dr. Tisha Carr Crystals LM Nom (Urine sed) NONE SEEN Normal NONE SEEN [facility] Comment on above: Performed By: #### U RCX #### [facility] [address] [place] [address] Dr. Tisha Carr Epithelial cells LM Ql (Urine sed) MANY Abnormal NONE SEEN /RARE [facility] Comment on above: Performed By: #### U RCX #### [facility] [address] [place] [address] Dr. Tisha Carr MUCOUS LARGE Abnormal NONE SEEN [facility] Comment on above: Performed By: #### U RCX #### [facility] [address] [place] [address] Dr. Tisha Carr RBC NONE SEEN Abnormal 0-2 [facility] Comment on above: Performed By: #### U RCX #### [facility] [address] [place] [address] Dr. Tisha aCrr WBC 5-10 Abnormal NONE SEEN [facility] Comment on above: Performed By: #### U RCX #### [facility] [address] [place] [address] Dr. Tisha Carr Vital Signs Date Time Vital Sign Value Performing Clinician Faci lity 09-22-2023 16:01-0500 Body weight 89.09 kg Belkis Jessica DO Work Phone: [facility] 09-22-2023 16:01-0500 Diastolic blood pressure 70 mm[Hg] Belkis Jessica DO Work Phone: [facility] 09-22-2023 16:01-0500 Systolic blood pressure 120 mm[Hg] Belkis Jessica DO Work Phone: [facility] Encounters Encounter Date Encounter Type [...] PM EST Routine [facility] [address] [place] [address] Belkis Lopez, [address] [place] [address] [facility] Start: 09-22-2023 End: 09-22-2024 Alpha fetoprotein, maternal Alpha fetoprotein, maternal Lab Routine Second trimester Need for maternal serum alpha-protein (MSAFP) screening Expected: 09/22/2023 (Approximate), Expires: 09/22/2024 [facility] Comment on above: Expected: 09/22/2023 (Approximate), Expires: 09/22/2024 Start: 09-22-2023 End: 09-22-2024 US for US OB ANATOMY SINGLE W US OB CERVICAL LENGTH Imaging Routine Screening, , for anatomic survey Expected: 09/22/2023 (Approximate), Expires: 09/22/2024 [facility] Comment on above: Expected: 09/22/2023 (Approximate), Expires: 09/22/2024 CHLAMYDIA TRACHOMATI S (GENITO/STI) CHLAMYDIA TRACHOMATIS (GENITO/STI) Lab Routine Exposure to STD Ordered: 09/22/2023 [facility] Comment on above: Ordered: 09/22/2023 Cytology Cervical or vaginal smear or scraping study Pap Smear Pathology and Cytology Routine Well woman exam with routine gynecological exam Ordered: 09/22/2023 [facility] Comment on above: Ordered: 09/22/2023 Neisseria gonorrhoea e DNA [Presence] in Unspecified specimen by OC with probe detection Neisseria gonorrhea DNA probe, direct Lab Routine Exposure to STD Ordered: 09/22/2023 [facility] Comment on above: Ordered: 09/22/2023 SURESWAB(R) ADVANCED VAGINITIS PLUS, TMA SURESWAB(R) ADVANCED VAGINITIS PLUS, TMA Pathology and Cytology Routine Exposure to STD Ordered: 09/22/2023 [facility] Work Phone: Comment on above: Ordered: 09/22/2023 Payers Date Payer Category Payer Medicaid [employer] [place] [employer] [id number] 2021-Present [address] [place] [address] [id number] 2000 Unknown [id number] 2000 Unknown [id number] [id number] 2000 Unknown [id number] 2.16.840.1.465041.3.579.2.593 2000 Unknown [id number] 2.16.840.1.524326.3.579.2.593 2000 Unknown [id number] 2.16.840.1.950203.3.579.2.1259 2000 Unknown [id number] 2.16.840.1.857068.3.579.2.1259 2000 Unknown [id number] 2.16.840.1.308918.3.579.2.1259 2000 Unknown [id number] 2.16.840.1.501165.3.579.2.9 2000 Unknown [id number] 2.16.840.1.304435.3.579.2.9 2000 Unknown [id number] 2.16.840.1.749982.3.579.2.9 2000 Unknown [id number] 2.16.840.1.392843.3.579.2.9 2000 Unknown [id number] 2.16.840.1.544061.3.579.2.1259 1959 Unknown [id number] Social History Date Type Detail Facility Tobacco smoking stat [facility] Tobacco smoking consumption unknown [facility] Start: 05-22-2023 [facility] Start: 2000 Sex Assigned At Female [facility] Start: 07-03-2023 Gender identity Identifies as female gender (finding) [facility] Sexual orientation Not on file [facility] History of Present illness Narrative 09-22-2023 Nora Riggs, DIRECTOR TELEVISION - 09/22/2023 3:20 PM EST Note Date [...] Problems Past Medical History: Diagnosis Date Asthma ([facility] No family history on file. Social History [...] nursing note reviewed. Exam conducted with a er tech present. Vitals: There is no height or [...] DATE CREATED AUTHOR AUTHOR'S ORGANIZ ATION 12/23/2023 [facility] EPIC Reason for Visit (unrecogniz ed [...] BE BASED ON THE PRIMARY CLINICAL RECORDS. [employer] provides no warranty or guarantee of the accuracy or completeness of information in this document.
[2023-12-27 11:54] VITALS: BP 118/79; PULSE 84
== END 2023-12-27 12:30 | disposition home or self-care (01) ==
LOC: US 09:07 → FBC 11:05
PROVIDERS: PCP Nurse Practitioner Family; Visit Provider Obstetrics & Gynecology
DX: O24.414 Gestational diabetes mellitus in pregnancy, insulin controlled (principal); Z3A.33 33 weeks gestation of pregnancy
CPT/HCPCS: 76818

== ENCOUNTER 2023-12-29 07:05 | Outpatient (OUT) | payer OTHER, SELFPAY ==
--- OUTSIDE RECORDS SUMMARY | 2023-12-29 07:08 | XMS_ITS | CCD ---
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 [facility] Comment on above: TESTS RESULT FLAG UN ITS REF RANGE LAB Clinician Provided Cytology Information Source.............Cervix Other.............. No. of containers..01 ThinPrep Vial Age Algo ACOG Bina... - 01 FLAG LEGEND: L-Low Normal,H-High Normal,LL-Alert Low,HH-Alert High <-Panic Low,>-Panic High,A-Abnormal,AA-Critical Abnormal Performed at: 01 =G [address] [id number] Lali Holloway MD, IGP, RFX APTIMA HPV ASCU Note . [facility] Comment on above: TESTS RESULT FLAG UN ITS REF RANGE LAB DIAGNOSIS: 02 NEGATIVE FOR INTRAEPITHELIAL LESION OR MALIGNANCY. Specimen adequacy: 02 Satisfactory for evaluation. No endocervical component is identified. An endocervical component is not commonly seen in the patient. Performed by: 02 Kieran Pickering, Hand Drawer In ([facility]) . 02 Note: Note 02 The [...] Low,>-Panic High,A-Abnormal,AA-Critical Abnormal Performed at: [address] [facility] [address] [place] [address] Lali Holloway MD, Performed at: =G - [facility] [address], [place] [id number] Therapist Occupational: Lali Holloway MD, Phone: [phone] Performed at: [facility] [address] [id number] Therapist Occupational: Lali Holloway MD, Phone: [phone] [facility] Urinalysis macro (dipstick) panel (U)on 09-22-2023 Bilirubin, UA Negative Negative - 4(70) +++ mg/dL [facility] Blood, UA Negative Negative - 50 Flash/mcL [facility] Clarity, UA Clear [facility] Color, UA Yellow [facility] Glucose, UA Negative Negative - 1999(110) ++++ mg/dL [facility] Interpretation and review of laboratory results Abnormal [facility] Ketones, UA Positive Negative - 160(16) ++++ mg/dL [facility] Leukocytes, UA Negative Negative - 500+++ Taylor/mcL [facility] Nitrite, UA Negative Negative - Positive [facility] pH, UA 5.5 5 - 9 [facility] Protein, UA Negative Negative - 1999(20) ++++ mg/dL [facility] Spec Grav, UA 1.020 1 - 1.03 [facility] Urobilinogen, UA 0.2 0.2 - 12 mg/dL [facility] COMPLIANCE DRUG SCREENon PDF . Normal [facility] Comment on above: Performed By: #### U RCX #### [facility] [address] [address] [address] Tisha Carr Summary FINAL [facility] Comment on above: Result Comment: = [...] test is not intended to distinguish between tqvpx-1-[id number], the predominant form of THC in most herbal or marijuana-based products, and [id number]. Methylphenidate PRESENT UNEXPECTED Ritalinic Acid PRESENT UNEXPECTED [...] = Performed By: #### U RCX #### [facility] [address] [place] [address] Dr. Tisha Carr URIC ACID RAND URINEon 10-31 Uric Acid, Urine 67.3 mg/dL Normal Not Estab. [facility] Comment on above: Performed By: #### U RCX #### [facility] [address] [place] [address] Dr. Tisha Carr DRUG SCREEN RAPID (URINE)on 10-30-2022 AMP Negative Normal NEGATIVE [facility] Comment on above: Performed By: #### U RCX #### [facility] [address] [place] [address] Dr. Tisha Carr BAR Negative Normal NEGATIVE [facility] Comment on above: Performed By: #### U RCX #### [facility] [address] [place] [address] Dr. Tisha Carr BUP Negative Normal NEGATIVE [facility] Comment on above: Performed By: #### U RCX #### [facility] [address] [place] [address] Dr. Tisha Carr BZO Negative Normal NEGATIVE [facility] Comment on above: Performed By: #### U RCX #### [facility] [address] [place] [address] Dr. Tisha Carr SOCRATES Negative Normal NEGATIVE [facility] Comment on above: Performed By: #### U RCX #### [facility] [address] [place] [address] Dr. Tisha Carr CUT-OFFS SEE BELOW Normal [facility] Comment on above: Result Comment: AMP [...] ng/mL Performed By: #### U RCX #### [facility] [address] [place] [address] Dr. Tisha Carr DRUG CUT HEADER DRUG CLASS TEST SYST EM CUT-OFF CONCENTRATIONS ARE FOLLOWS: Normal [facility] Comment on above: Performed By: #### U RCX #### [facility] [address] [place] [address] Dr. Tisha Carr mAMP Negative Normal NEGATIVE [facility] Comment on above: Performed By: #### U RCX #### [facility] [address] [place] [address] Dr. Tisha Carr MTD Negative Normal NEGATIVE [facility] Comment on above: Performed By: #### U RCX #### [facility] [address] [place] [address] Dr. Tisha Carr OPI Negative Normal NEGATIVE [facility] Comment on above: Performed By: #### U RCX #### [facility] [address] [place] [address] Dr. Tisha Carr OXY Negative Normal NEGATIVE [facility] Comment on above: Performed By: #### U RCX #### [facility] [address] [address] [address] Tisha Carr PCP Negative Normal NEGATIVE [facility] Comment on above: Performed By: #### U RCX #### [facility] [address] [place] [address] Dr. Tisha Carr PPX Negative Normal NEGATIVE [facility] Comment on above: Performed By: #### U RCX #### [facility] [address] [place] [address] Dr. Tisha Carr TCA Negative Normal NEGATIVE [facility] Comment on above: Performed By: #### U RCX #### [facility] [address] [place] [address] Dr. Tisha Carr THC Positive Abnormal NEGATIVE [facility] Comment on above: Performed By: #### U RCX #### [facility] [address] [place] [address] Dr. Tisha Carr CBC AUTO DIFFon 06-21-2022 BASO # 0.0 103/ul Normal 0.0-0.1 [facility] Comment on above: Performed By: #### U RCX #### [facility] [address] [place] [address] Dr. Tisha Carr Basophils/100 WBC (Bld) 0.2 % Normal 0.2-2.0 [facility] Comment on above: Performed By: #### U RCX #### [facility] [address] [place] [address] Dr. Tisha Carr EO # 0.0 103/ul Normal 0.0-0.7 [facility] Comment on above: Performed By: #### U RCX #### [facility] [address] [place] [address] Dr. Tisha Carr Eosinophils/100 WBC (Bld) 0.2 % Critically low 0.9-7.0 [facility] Comment on above: Performed By: #### U RCX #### [facility] [address] [place] [address] Dr. Tisha Carr Erythrocyte distribution width (RBC) [Ratio] 12.3 % Normal 11.0-15.0 [facility] Comment on above: Performed By: #### U RCX #### [facility] [address] [place] [address] Dr. Tisha Carr Hematocrit (Bld) [Volume fraction] 43.1 % Normal 36.0-48.0 [facility] Comment on above: Performed By: #### U RCX #### [facility] [address] [place] [address] Dr. Tisha Carr Hemoglobin (Bld) [Mass/Vol] 15.1 g/dL Normal 12.0-16.0 [facility] Comment on above: Performed By: #### U RCX #### [facility] [address] [place] [address] Dr. Tisha Carr IG # 0.06 10e3/ul Critically high 0.00-0.03 [facility] Comment on above: Performed By: #### U RCX #### [facility] [address] [place] [address] Dr. Tisha Carr IG % 0.5 % Normal 0.0-0.5 [facility] Comment on above: Performed By: #### U RCX #### [facility] [address] [place] [address] Dr. Tisha Carr LYMPH # 1.0 103/ul Critically low 1.2-3.8 [facility] Comment on above: Performed By: #### U RCX #### [facility] [address] [place] [address] Dr. Tisha Carr Lymphocytes/100 WBC (Bld) 8.2 % Critically low 20.5-60.0 [facility] Comment on above: Performed By: #### U RCX #### [facility] [address] [place] [address] Dr. Tisha Carr MANUAL DIFF REQ NO Normal [facility] Comment on above: Performed By: #### U RCX #### [facility] [address] [place] [address] Dr. Tisha Carr MCH (RBC) [Entitic mass] 30.3 pg Normal 26.7-34.0 [facility] Comment on above: Performed By: #### U RCX #### [facility] [address] [place] [address] Dr. Tisha Carr MCHC (RBC) [Mass/Vol] 35.0 g/dL Normal 29.9-35.2 [facility] Comment on above: Performed By: #### U RCX #### [facility] [address] [place] [address] Dr. Tisha Carr MCV (RBC) [Entitic vol] 86.4 fL Normal 81.0-99.0 [facility] Comment on above: Performed By: #### U RCX #### [facility] [address] [place] [address] Dr. Tisha Carr MONO # 0.8 103/ul Normal 0.3-0.8 [facility] Comment on above: Performed By: #### U RCX #### [facility] [address] [place] [address] Dr. Tisha Carr Monocytes/100 WBC (Bld) 6.0 % Normal 1.7-12.0 [facility] Comment on above: Performed By: #### U RCX #### [facility] [address] [place] [address] Dr. Tisha Carr NEUT # 10.8 103/ul Critically high 1.4-6.5 [facility] Comment on above: Performed By: #### U RCX #### [facility] [address] [place] [address] Dr. Tisha Carr Neutrophils/100 WBC (Bld) 84.9 % Critically high 43.0-75.0 [facility] Comment on above: Performed By: #### U RCX #### [facility] [address] [place] [address] Dr. Tisha Carr Platelet mean volume (Bld) [Entitic vol] 10.8 fL Normal 9.5-13.5 [facility] Comment on above: Performed By: #### U RCX #### [facility] [address] [place] [address] Dr. Tisha Carr PLT 237 103/ul Normal 150-450 [facility] Comment on above: Performed By: #### U RCX #### [facility] [address] [place] [address] Dr. Tisha Carr RBC 4.99 106/ul Normal 4.20-5.40 [facility] Comment on above: Performed By: #### U RCX #### [facility] [address] [place] [address] Dr. Tisha Carr WBC 12.7 103/ul Critically high 4.0-11.0 [facility] Comment on above: Performed By: #### U RCX #### [facility] [address] [place] [address] Dr. Tisha Carr CRPon 06-21-2022 CRP 10.0 mg/dL Critically high <=1.0 [facility] Comment on above: Performed By: #### C RP, CMP, LIPA #### [facility] [address] [place] [address] Dr. Tisha Carr ER URINE PROFILEon 2 Bilirubin Ql (U) SMALL Abnormal NEGATIVE [facility] Comment on above: Performed By: #### E RUR, UMICRO, PREGU #### [facility] [address] [address] [address] Tisha Carr Clarity (U) CLEAR Normal CLEAR [facility] Comment on above: Performed By: #### E RUR, UMICRO, PREGU #### [facility] [address] [address] [address] Tisha Carr Color (U) YELLOW Normal YELLOW [facility] Comment on above: Performed By: #### E RUR, UMICRO, PREGU #### [facility] [address] [address] [address] Tisha QUEZADA A micrscopic examina tion will be performed if indicated. Normal [facility] Comment on above: Performed By: #### E RUR, UMICRO, PREGU #### [facility] [address] [address] [address] Tisha Carr Glucose Ql (U) Negative Normal NEGATIVE [facility] Comment on above: Performed By: #### E RUR, UMICRO, PREGU #### [facility] [address] [address] [address] Tisha Carr Hemoglobin Ql (U) MODERATE Abnormal NEGATIVE [facility] Comment on above: Performed By: #### E RUR, UMICRO, PREGU #### [facility] [address] [address] [address] Tisha Carr Ketones Ql (U) 80 mg/dl Abnormal NEGATIVE [facility] Comment on above: Performed By: #### E RUR, UMICRO, PREGU #### [facility] [address] [address] [address] Tisha Carr LEUKOCYTES Negative Normal NEGATIVE [facility] Comment on above: Performed By: #### E RUR, UMICRO, PREGU #### [facility] [address] [address] [address] Tisha Carr Nitrite Ql (U) Negative Normal NEGATIVE [facility] Comment on above: Performed By: #### E YULY CUMMINS, PREGU #### [facility] [address] [place] [address] Dr. Tisha Carr pH (U) 6.0 [pH] Normal 5-9 [facility] Comment on above: Performed By: #### LEIGH BRYANTICELLE, PREGU #### [facility] [address] [place] [address] Dr. Tisha Carr SPEC GRAVITY 1.025 Normal 1.005-<=1.025 [facility] Comment on above: Performed By: #### Sofi RUYULY Leone, PREGU #### [facility] [address] [place] [address] Dr. Tisha Carr UA PROTEIN TRACE Normal NEGATIVE/ TRACE [facility] Comment on above: Performed By: #### YULY BRYANT, PREGU #### [facility] [address] [place] [address] Dr. Tisha Carr UR MICRO IND INDICATED Normal [facility] Comment on above: Performed By: #### YULY BRYANT, PREGU #### [facility] [address] [place] [address] Dr. Tisha Carr Urobilinogen Qn (U) 1.0 {Alma'U}/dL Normal 0.2 - 1.0 [facility] Comment on above: Performed By: #### YULY BRYANT, PREGU #### [facility] [address] [place] [address] Dr. Tisha Carr LACTATE/LACTIC ACIDon 2021 Lactate [Moles/Vol] 1.0 mmol/L Normal 0.4-1.9 [facility] Comment on above: Performed By: #### U RCX #### [facility] [address] [place] [address] Dr. Tisha Carr LIPASEon 06-21-2022 Lipase [Catalytic activity/Vol] 41.0 U/L Critically low 73.0-393.0 [facility] Comment on above: Performed By: #### C RP, CMP, LIPA #### [facility] [address] [address] [address] Tisha Carr URon 06-21-2022 , QUAL Negative Normal NEGATIVE [facility] Comment on above: Performed By: #### E RUR, UMICRO, PREGU #### [facility] [address] [address] [address] Tisha Carr PROF 14(COMP METB)on 022 Albumin [Mass/Vol] 4.0 g/dL Normal 3.4-5.0 [facility] Comment on above: Performed By: #### C RP, CMP, LIPA #### [facility] [address] [address] [address] Tisha Carr Albumin/Globulin [Mass ratio] 1.0 {ratio} Normal [facility] Comment on above: Performed By: #### C RP, CMP, LIPA #### [facility] [address] [address] [address] Tisha Carr ALP [Catalytic activity/Vol] 74 U/L Normal 46-116 [facility] Comment on above: Performed By: #### C RP, CMP, LIPA #### [facility] [address] [place] [address] Dr. Tisha Carr ALT [Catalytic activity/Vol] 33 U/L Normal 14-59 [facility] Comment on above: Performed By: #### C RP, CMP, LIPA #### [facility] [address] [address] [address] Tisha Carr Anion gap [Moles/Vol] 15.8 mmol/L Normal [facility] Comment on above: Performed By: #### C RP, CMP, LIPA #### [facility] [address] [address] [address] Tisha Carr AST [Catalytic activity/Vol] 17 U/L Normal 15-37 [facility] Comment on above: Performed By: #### C RP, CMP, LIPA #### [facility] [address] [address] [address] Tisha Carr Bilirubin [Mass/Vol] 1.3 mg/dL Critically high 0.2-1.0 [facility] Comment on above: Performed By: #### C RP, CMP, LIPA #### [facility] [address] [place] [address] Dr. Tisha Carr Calcium [Mass/Vol] 9.2 mg/dL Normal 8.5-10.1 [facility] Comment on above: Performed By: #### C RP, CMP, LIPA #### [facility] [address] [address] [address] Tisha Carr Chloride [Moles/Vol] 102 mmol/L Normal 98-107 [facility] Comment on above: Performed By: #### C RP, CMP, LIPA #### [facility] [address] [place] [address] Dr. Tisha Carr CO2 [Moles/Vol] 22.7 mmol/L Normal 21.0-32.0 [facility] Comment on above: Performed By: #### C RP, CMP, LIPA #### [facility] [address] [place] [address] Dr. Tisha Carr Creatinine [Mass/Vol] 0.70 mg/dL Normal 0.55-1.02 [facility] Comment on above: Performed By: #### C RP, CMP, LIPA #### [facility] [address] [place] [address] Dr. Tisha Carr EGFR-AF GUYANESE >60 Normal >=60 [facility] Comment on above: Performed By: #### C RP, CMP, LIPA #### [facility] [address] [place] [address] Dr. Tisha Carr EGFR-NON AF GUYANESE >60 Normal >=60 [facility] Comment on above: Performed By: #### C RP, CMP, LIPA #### [facility] [address] [place] [address] Dr. Tisha Carr Globulin (S) [Mass/Vol] 4.2 g/dL Normal [facility] Comment on above: Performed By: #### C RP, CMP, LIPA #### [facility] [address] [place] [address] Dr. Tisha Carr Glucose [Mass/Vol] 93 mg/dL Normal 74-[address] [facility] Comment on above: Performed By: #### C RP, CMP, LIPA #### [facility] [address] [place] [address] Dr. Tisha Carr Potassium [Moles/Vol] 3.5 mmol/L Normal 3.5-5.1 [facility] Comment on above: Performed By: #### C RP, CMP, LIPA #### [facility] [address] [place] [address] Dr. Tisha Carr Protein [Mass/Vol] 8.2 g/dL Normal 6.4-8.[address] [facility] Comment on above: Performed By: #### C RP, CMP, LIPA #### [facility] [address] [place] [address] Dr. Tisha Carr Sodium [Moles/Vol] 137 mmol/L Normal 136-[address] [facility] Comment on above: Performed By: #### C RP, CMP, LIPA #### [facility] [address] [place] [address] Dr. Tisha Carr Urea nitrogen [Mass/Vol] 16.0 mg/dL Normal 7.0-18.0 [facility] Comment on above: Performed By: #### C RP, CMP, LIPA #### [facility] [address] [place] [address] Dr. Tisha Carr Urea nitrogen/Creatinin e [Mass ratio] 22.9 mg/mg Normal [facility] Comment on above: Performed By: #### C RP, CMP, LIPA #### [facility] [address] [place] [address] Dr. Tisha Carr URINE MICROSCOPIC ONLYon BACTERIA TRACE Abnormal NONE SEEN [facility] Comment on above: Performed By: #### E YULY CUMMINS PREGU #### [facility] [address] [place] [address] Dr. Tisha Carr Bacteria identified Cx Nom (U) NOT INDICATED Normal [facility] Comment on above: Performed By: #### E LEIGH CUMMINSICRO, PREGU #### [facility] [address] [address] [address] Tisha Carr CAST NONE SEEN Normal NONE SEEN [facility] Comment on above: Performed By: #### E YULY CUMMINS, PREGU #### [facility] [address] [address] [address] Tisha Carr Crystals LM Nom (Urine sed) NONE SEEN Normal NONE SEEN [facility] Comment on above: Performed By: #### YULY BRYANT, PREGU #### [facility] [address] [place] [address] Dr. Tisha Carr Epithelial cells LM Ql (Urine sed) MODERATE Abnormal NONE SEEN /RARE [facility] Comment on above: Performed By: #### YULY BRYANT, PREGU #### [facility] [address] [place] [address] Dr. Tisha Carr MUCOUS MODERATE Abnormal NONE SEEN [facility] Comment on above: Performed By: #### YULY BRYANT, PREGU #### [facility] [address] [place] [address] Dr. Tisha Carr RBC 0-2 Normal 0-2 [facility] Comment on above: Performed By: #### YULY BRYANT, PREGU #### [facility] [address] [place] [address] Dr. Tisha Carr WBC 0-[address] [facility] Comment on above: Performed By: #### YULY BRYANT, PREGU #### [facility] [address] [place] [address] Dr. Tisha Carr PAP ACOG PANEL 2: 21 to 29on 04-11-2022 . . Normal [facility] Comment on above: Performed By: #### U RCX #### [facility] [address] [place] [address] Dr. Tisha Carr Age Gdln ACOG Testing 21-[address] [facility] Comment on above: Performed By: #### U RCX #### [facility] [address] [place] [address] Dr. Tisha Carr DIAGNOSIS: Comment Normal [facility] Comment on above: Result Comment: NEGA TIVE FOR INTRAEPITHELIAL LESION OR MALIGNANCY. FUNGAL ORGANISMS MORPHOLOGICALLY CONSISTENT WITH SHEREE SPECIES ARE PRESENT. Performed By: #### U RCX #### [facility] [address] [address] [address] Tisha Carr Methodology: Comment Normal [facility] Comment on above: Result Comment: This liquid based ThinPrep(R) pap test was screened with the use of an image guided system. Performed By: #### U RCX #### [facility] [address] [address] [address] Tisha Carr Note: Comment Normal [facility] Comment on above: Result Comment: The Pap smear is a screening test designed to aid in the detection of premalignant and malignant conditions of the uterine cervix. It is not a diagnostic procedure and should not be used as the sole means of detecting cervical cancer. Both false-positive and false-negative reports do occur. . Performed By: #### U RCX #### [facility] [address] [address] [address] Tisha Carr Performed by: Comment Normal [facility] Comment on above: Result Comment: Caleb Schaeffer, Hand Drawer In (ASCP) Performed By: #### U RCX #### [facility] [address] [address] [address] Tisha Carr Reflex Criteria: Comment Normal [facility] Comment on above: Result Comment: The HPV DNA reflex criteria were not met with this specimen result therefore, no HPV testing was performed. . Performed By: #### U RCX #### [facility] [address] [address] [address] Tisha Carr Specimen adequacy: Comment Normal [facility] Comment on above: Result Comment: Sati sfactory for evaluation. Endocervical and/or squamous metaplastic cells (endocervical component) are present. Performed By: #### U RCX #### [facility] [address] [address] [address] Tisha Carr CULTURE URINEon 01-08-2022 CULTURE [...] Trimethoprim/Sulfamethox azole <=20 S F Normal [facility] Comment on above: Performed By: #### U RCX #### [facility] [address] [place] [id number] Tisha Carr Covid-19 PCR (CVDTB)on 12-23 SARS-CoV-2 (COVID-19) RNA OC+probe Ql (Unsp spec) Not detected Normal NOT DETECTED [facility] Comment on above: Result Comment: This test is not yet approved or cleared by the [place] FDA. When there are no FDA-approved or cleared tests available, and other criteria are met, FDA can make tests available under an emergency access mechanism called an Emergency Use Authorization (EUA). The EUA for this test is supported by the Medical Social Worker of Health and Human Service's (HHS's) declaration [...] SARS-CoV-2. Performed By: #### C VDTBH #### [facility] [address] [place] [id number] Tisha Carr ER URINE PROFILEon 2 Bilirubin Ql (U) MODERATE Abnormal NEGATIVE [facility] Comment on above: Performed By: #### E RUR, UMICRO, PREGU #### [facility] [address] [place] [address] Dr. Tisha Carr Clarity (U) CLEAR Normal CLEAR [facility] Comment on above: Performed By: #### E RUR, UMICRO, PREGU #### [facility] [address] [address] [address] Tisha Carr Color (U) DK. YELLOW Normal YELLOW [facility] Comment on above: Performed By: #### E RUR, UMICRO, PREGU #### [facility] [address] [address] [address] Tisha QUEZADA A micrscopic examina tion will be performed if indicated. Normal [facility] Comment on above: Performed By: #### E RUR, UMICRO, PREGU #### [facility] [address] [place] [address] Dr. Tisha Carr Glucose Ql (U) Negative Normal NEGATIVE [facility] Comment on above: Performed By: #### E RUR, UMICRO, PREGU #### [facility] [address] [place] [address] Dr. Tisha Carr Hemoglobin Ql (U) Negative Normal NEGATIVE [facility] Comment on above: Performed By: #### E RUR, UMICRO, PREGU #### [facility] [address] [address] [address] Tisha Carr Ketones Ql (U) >=80 Abnormal NEGATIVE [facility] Comment on above: Performed By: #### E RUR, UMICRO, PREGU #### [facility] [address] [address] [address] Tisha Carr LEUKOCYTES TRACE Abnormal NEGATIVE [facility] Comment on above: Performed By: #### E RUR, UMICRO, PREGU #### [facility] [address] [place] [address] Dr. Tisha Carr Nitrite Ql (U) Negative Normal NEGATIVE [facility] Comment on above: Performed By: #### E RUR, UMICRO, PREGU #### [facility] [address] [place] [address] Dr. Tisha Carr pH (U) 6.0 [pH] Normal 5-9 [facility] Comment on above: Performed By: #### YULY BRYANT, PREGU #### [facility] [address] [place] [address] Dr. Tisha Carr Protein (U) [Mass/Vol] 100 mg/dL Abnormal NEGATIVE/ TRACE [facility] Comment on above: Performed By: #### YULY BRYANT, PREGU #### [facility] [address] [place] [address] Dr. Tisha Carr SPEC GRAVITY 1.025 Normal 1.005-<=1.025 [facility] Comment on above: Performed By: #### YULY BRYANT, PREGU #### [facility] [address] [place] [address] Dr. Tisha Carr UR MICRO IND INDICATED Normal [facility] Comment on above: Performed By: #### YULY BRYANT, PREGU #### [facility] [address] [place] [address] Dr. Tisha Carr Urobilinogen Qn (U) 1.0 {Alma'U}/dL Normal 0.2 - 1.0 [facility] Comment on above: Performed By: #### YULY BRYANT PREGU #### [facility] [address] [place] [address] Dr. Tisha Carr INFLUENZA A AND B AGon 01-06 INFLUANEGH SEE BELOW Normal [facility] Comment on above: Result Comment: Nega tive for Flu A protein angiten. Infection due to Flu A cannot be ruled out. Flu A angiten in the sample may be below the detection limit of the test. Performed By: #### U RCX #### [facility] [address] [place] [address] Dr. Tisha Carr INFLUBNEGH SEE BELOW Normal [facility] Comment on above: Result Comment: Nega tive for Flu B protein antigen. Infection due to Flu B cannot be ruled out. Flu B antigen in the sample may be below the detection limit of the test. Performed By: #### U RCX #### [facility] [address] [place] [address] Dr. Tisha Carr INFLUENZA A AG Negative Normal NEGATIVE SEE COMMENT [facility] Comment on above: Performed By: #### U RCX #### [facility] [address] [place] [address] Dr. Tisha Carr INFLUENZA B AG Negative Normal NEGATIVE SEE COMMENT [facility] Comment on above: Performed By: #### U RCX #### [facility] [address] [place] [address] Dr. Tisha Carr INTERNAL CONTROLS Within Normal Limits Normal Wi thin Normal Limits [facility] Comment on above: Performed By: #### U RCX #### [facility] [address] [place] [address] Dr. Tisha Carr URon 01-06-2022 , QUAL Negative Normal NEGATIVE [facility] Comment on above: Performed By: #### E RUR, UMICRO, PREGU #### [facility] [address] [place] [address] Dr. Tisha Carr URINE MICROSCOPIC ONLYon BACTERIA SMALL Abnormal NONE SEEN [facility] Comment on above: Performed By: #### U RCX #### [facility] [address] [place] [address] Dr. Tisha Carr Bacteria identified Cx Nom (U) INDICATED Normal [facility] Comment on above: Performed By: #### U RCX #### [facility] [address] [place] [address] Dr. Tisha Carr CAST NONE SEEN Normal NONE SEEN [facility] Comment on above: Performed By: #### U RCX #### [facility] [address] [place] [address] Dr. Tisha Carr Crystals LM Nom (Urine sed) NONE SEEN Normal NONE SEEN [facility] Comment on above: Performed By: #### U RCX #### [facility] [address] [place] [address] Dr. Tisha Carr Epithelial cells LM Ql (Urine sed) MANY Abnormal NONE SEEN /RARE [facility] Comment on above: Performed By: #### U RCX #### [facility] [address] [place] [address] Dr. Tisha Carr MUCOUS LARGE Abnormal NONE SEEN [facility] Comment on above: Performed By: #### U RCX #### [facility] [address] [place] [address] Dr. Tisha Carr RBC NONE SEEN Abnormal 0-2 [facility] Comment on above: Performed By: #### U RCX #### [facility] [address] [place] [address] Dr. Tisha Carr WBC 5-10 Abnormal NONE SEEN [facility] Comment on above: Performed By: #### U RCX #### [facility] [address] [place] [address] Dr. Tisha Carr Vital Signs Date Time Vital Sign Value Performing Clinician Faci lity 09-22-2023 16:01-0500 Body weight 89.09 kg Belkis Jessica DO Work Phone: [facility] 09-22-2023 16:01-0500 Diastolic blood pressure 70 mm[Hg] Belkis Jessica DO Work Phone: [facility] 09-22-2023 16:01-0500 Systolic blood pressure 120 mm[Hg] Belkis Jessica DO Work Phone: [facility] Encounters Encounter Date Encounter [...] PM EST Routine [facility] [address] [place] [address] Belkis Lopez, [address] [place] [address] [facility] Start: 09-22-2023 End: 09-22-2024 Alpha fetoprotein, maternal Alpha fetoprotein, maternal Lab Routine Second trimester Need for maternal serum alpha-protein (MSAFP) screening Expected: 09/22/2023 (Approximate), Expires: 09/22/2024 [facility] Comment on above: Expected: 09/22/2023 (Approximate), Expires: 09/22/2024 Start: 09-22-2023 End: 09-22-2024 US for US OB ANATOMY SINGLE W US OB CERVICAL LENGTH Imaging Routine Screening, , for anatomic survey Expected: 09/22/2023 (Approximate), Expires: 09/22/2024 [facility] Comment on above: Expected: 09/22/2023 (Approximate), Expires: 09/22/2024 CHLAMYDIA TRACHOMATI S (GENITO/STI) CHLAMYDIA TRACHOMATIS (GENITO/STI) Lab Routine Exposure to STD Ordered: 09/22/2023 [facility] Comment on above: Ordered: 09/22/2023 Cytology Cervical or vaginal smear or scraping study Pap Smear Pathology and Cytology Routine Well woman exam with routine gynecological exam Ordered: 09/22/2023 [facility] Comment on above: Ordered: 09/22/2023 Neisseria gonorrhoea e DNA [Presence] in Unspecified specimen by OC with probe detection Neisseria gonorrhea DNA probe, direct Lab Routine Exposure to STD Ordered: 09/22/2023 [facility] Comment on above: Ordered: 09/22/2023 SURESWAB(R) ADVANCED VAGINITIS PLUS, TMA SURESWAB(R) ADVANCED VAGINITIS PLUS, TMA Pathology and Cytology Routine Exposure to STD Ordered: 09/22/2023 [facility] Work Phone: Comment on above: Ordered: 09/22/2023 Payers Date Payer Category Payer Medicaid [employer] [place] [employer] [id number] 2021-Present [address] [place] [address] [id number] 2000 Unknown [id number] 2000 Unknown [id number] [id number] 2000 Unknown [id number] [id number] 2000 Unknown [id number] 2.16.840.1.031390.3.579.2.593 2000 Unknown [id number] 2.16.840.1.373984.3.579.2.1259 2000 Unknown [id number] 2.16.840.1.434019.3.579.2.1259 2000 Unknown [id number] 2.16.840.1.995080.3.579.2.1259 2000 Unknown [id number] 2.16.840.1.270458.3.579.2.9 2000 Unknown [id number] 2.16.840.1.153047.3.579.2.9 2000 Unknown [id number] 2.16.840.1.201147.3.579.2.9 2000 Unknown [id number] 2.16.840.1.562886.3.579.2.9 2000 Unknown [id number] 2.16.840.1.737948.3.579.2.1259 1959 Unknown [id number] Social History Date Type Detail Facility Tobacco smoking stat [facility] Tobacco smoking consumption unknown [facility] Start: 05-22-2023 [facility] Start: [facility] Sex Assigned At Female [facility] Start: 07-03-2023 Gender identity Identifies as female gender (finding) [facility] Sexual orientation Not on file [facility] History of Present illness Narrative 09-22-2023 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 Social History [...] nursing note reviewed. Exam conducted with a agribusiness internship present. Vitals: There is no height or [...] DATE CREATED AUTHOR AUTHOR'S ORGANIZ ATION 12/23/2023 [facility] EPIC Reason for Visit (unrecogniz ed [...] BE BASED ON THE PRIMARY CLINICAL RECORDS. [employer] provides no warranty or guarantee of the accuracy or completeness of information in this document.
--- NOTE | 2023-12-29 12:11 | US_ITS ---
[address] [address] Patient Name: FLORENCIA NEELY MRN: [id number] date: 2000 Sex: F Assigned Patient Location: [facility] Current Patient Location: [facility] Accession/Order Number: [id number] Exam Date: 12/29/2023 12:35 Report Date: 12/29/2023 13:59 At the request of: BELKIS BRAND Procedure: US OB BPP w non-stress EXAMINATION: US OB BPP w non-stress HISTORY: repeat from 12/27/23 COMPARISON: 12/27/2023 TECHNIQUE: Ultrasound biophysical profile was performed in the radiology department. FINDINGS: BREATHING MOVEMENTS: 2.0 GROSS BODY MOVEMENTS: 2.0 TONE: 2.0 QUALITATIVE AMNIOTIC FLUID VOLUME: 2.0 PRESENTATION: CEPHALIC HEART RATE: 140.6 bpm H.B./min AMNIOTIC FLUID VOLUME: 15.5 cm cm GESTATIONAL AGE: 33 weeks 4 days CONCLUSION: Total biophysical profile score: 8.0 Electronically authenticated by: LOUISE MOHAMUD Date: 12/29/2023 13:59
[2023-12-29 12:21] VITALS: BP 121/80; PULSE 109
== END 2023-12-29 13:10 | disposition home or self-care (01) ==
LOC: FBCO 07:05 → FBC 12:07
PROVIDERS: PCP Nurse Practitioner Family; Visit Provider Obstetrics & Gynecology
DX: O24.419 Gestational diabetes mellitus in pregnancy, unspecified control (principal); Z3A.33 33 weeks gestation of pregnancy
CPT/HCPCS: 76818

== ENCOUNTER 2023-12-31 07:27 | Outpatient (OUT) | payer OTHER, SELFPAY ==
--- OUTSIDE RECORDS SUMMARY | 2023-12-31 07:30 | XMS_ITS | CCD ---
Author Organization [facility] Care Team Providers Care Realty Specialist Name Role Phone JOSE ., LITA Admitting [...] (1 source) Ibuprofen Drug Allergy 01-15-2016 [facility] Repository (2 sources) Ibuprofen Drug Allergy [...] AGE GDLN ACOG TESTING Note . [facility] Comment on above: TESTS RESULT FLAG UN ITS REF RANGE LAB Clinician Provided Cytology Information Source.............Cervix Other.............. No. of containers..01 ThinPrep Vial Age Algo ACOG Bina... - 01 FLAG LEGEND: L-Low Normal,H-High Normal,LL-Alert Low,HH-Alert High <-Panic Low,>-Panic High,A-Abnormal,AA-Critical Abnormal Performed at: 01 =G [address] [address] Lali Holloway MD, IGP, RFX APTIMA HPV ASCU Note . [facility] Comment on above: TESTS RESULT FLAG UN ITS REF RANGE LAB DIAGNOSIS: 02 NEGATIVE FOR INTRAEPITHELIAL LESION OR MALIGNANCY. Specimen adequacy: 02 Satisfactory for evaluation. No endocervical component is identified. An endocervical component is not commonly seen in the patient. Performed by: 02 Kieran Pickering, Core Carrier ([facility]) . 02 Note: Note 02 The [...] Low,>-Panic High,A-Abnormal,AA-Critical Abnormal Performed at: [address] [facility] [address] [place] [address] Lali Holloway MD, Performed at: =G - [facility] [address], [place] [id number] Sample Tailor: Lali Holloway MD, Phone: [phone] Performed at: [facility] [address] [id number] Sample Tailor: Lali Holloway MD, Phone: [phone] [facility] Urinalysis macro (dipstick) panel (U)on 09-22-2023 Bilirubin, UA Negative Negative - 4(70) +++ mg/dL [facility] Blood, UA Negative Negative - 50 Flash/mcL [facility] Clarity, UA Clear [facility] Color, UA Yellow [facility] Glucose, UA Negative Negative - 1999(110) ++++ mg/dL [facility] Interpretation and review of laboratory results Abnormal [facility] Ketones, UA Positive Negative - 160(16) ++++ mg/dL [facility] Leukocytes, UA Negative Negative - 500+++ Taylor/mcL [facility] Nitrite, UA Negative Negative - Positive [facility] pH, UA 5.5 5 - 9 [facility] Protein, UA Negative Negative - 1999(20) ++++ mg/dL [facility] Spec Grav, UA 1.020 1 - 1.03 [facility] Urobilinogen, UA 0.2 0.2 - 12 mg/dL Count includes the [facility] COMPLIANCE DRUG SCREENon PDF . Normal [facility] Comment on above: Performed By: #### U RCX #### [facility] [address] [address] [address] Tisha Carr Summary FINAL [facility] Comment on above: Result Comment: [...] test is not intended to distinguish between vxjxq-2-tjshpmlizoyanlbityba, the predominant form of THC in most herbal or marijuana-based products, and scasi-0-hijfvlwmvcnvlzkfgnwa. Methylphenidate PRESENT UNEXPECTED Ritalinic Acid PRESENT UNEXPECTED [...] = Performed By: #### U RCX #### [facility] [address] [place] [address] Dr. Tisha Carr URIC ACID RAND URINEon 10-31 Uric Acid, Urine 67.3 mg/dL Normal Not Estab. [facility] Comment on above: Performed By: #### U RCX #### [facility] [address] [place] [address] Dr. Tisha Carr DRUG SCREEN RAPID (URINE)on 10-30-2022 AMP Negative Normal NEGATIVE [facility] Comment on above: Performed By: #### U RCX #### [facility] [address] [place] [address] Dr. Tisha Carr BAR Negative Normal NEGATIVE [facility] Comment on above: Performed By: #### U RCX #### [facility] [address] [place] [address] Dr. Tisha Carr BUP Negative Normal NEGATIVE [facility] Comment on above: Performed By: #### U RCX #### [facility] [address] [place] [address] Dr. Tisha Carr BZO Negative Normal NEGATIVE [facility] Comment on above: Performed By: #### U RCX #### [facility] [address] [place] [address] Dr. Tisha Carr SOCRATES Negative Normal NEGATIVE [facility] Comment on above: Performed By: #### U RCX #### [facility] [address] [place] [address] Dr. Tisha Carr CUT-OFFS SEE BELOW Normal [facility] Comment on above: Result Comment: AMP [...] ng/mL Performed By: #### U RCX #### [facility] [address] [place] [address] Dr. Tisha Carr DRUG CUT HEADER DRUG CLASS TEST SYST EM CUT-OFF CONCENTRATIONS ARE FOLLOWS: Normal [facility] Comment on above: Performed By: #### U RCX #### [facility] [address] [place] [address] Dr. Tisha Carr mAMP Negative Normal NEGATIVE [facility] Comment on above: Performed By: #### U RCX #### [facility] [address] [place] [address] Dr. Tisha Carr MTD Negative Normal NEGATIVE [facility] Comment on above: Performed By: #### U RCX #### [facility] [address] [place] [address] Dr. Tisha Carr OPI Negative Normal NEGATIVE [facility] Comment on above: Performed By: #### U RCX #### [facility] [address] [place] [address] Dr. Tisha Carr OXY Negative Normal NEGATIVE [facility] Comment on above: Performed By: #### U RCX #### [facility] [address] [address] [address] Tisha Carr PCP Negative Normal NEGATIVE [facility] Comment on above: Performed By: #### U RCX #### [facility] [address] [place] [address] Dr. Tisha Carr PPX Negative Normal NEGATIVE [facility] Comment on above: Performed By: #### U RCX #### [facility] [address] [place] [address] Dr. Tisha Carr TCA Negative Normal NEGATIVE [facility] Comment on above: Performed By: #### U RCX #### [facility] [address] [place] [address] Dr. Tisha Carr THC Positive Abnormal NEGATIVE [facility] Comment on above: Performed By: #### U RCX #### [facility] [address] [place] [address] Dr. Tisha Carr CBC AUTO DIFFon 06-21-2022 BASO # 0.0 103/ul Normal 0.0-0.1 [facility] Comment on above: Performed By: #### U RCX #### [facility] [address] [place] [address] Dr. Tisha Carr Basophils/100 WBC (Bld) 0.2 % Normal 0.2-2.0 [facility] Comment on above: Performed By: #### U RCX #### [facility] [address] [place] [address] Dr. Tisha Carr EO # 0.0 103/ul Normal 0.0-0.7 [facility] Comment on above: Performed By: #### U RCX #### [facility] [address] [place] [address] Dr. Tisha Carr Eosinophils/100 WBC (Bld) 0.2 % Critically low 0.9-7.0 [facility] Comment on above: Performed By: #### U RCX #### [facility] [address] [place] [address] Dr. Tisha Carr Erythrocyte distribution width (RBC) [Ratio] 12.3 % Normal 11.0-15.0 [facility] Comment on above: Performed By: #### U RCX #### [facility] [address] [place] [address] Dr. Tisha Carr Hematocrit (Bld) [Volume fraction] 43.1 % Normal 36.0-48.0 [facility] Comment on above: Performed By: #### U RCX #### [facility] [address] [place] [address] Dr. Tisha Carr Hemoglobin (Bld) [Mass/Vol] 15.1 g/dL Normal 12.0-16.0 [facility] Comment on above: Performed By: #### U RCX #### [facility] [address] [place] [address] Dr. Tisha Carr IG # 0.06 10e3/ul Critically high 0.00-0.03 [facility] Comment on above: Performed By: #### U RCX #### [facility] [address] [place] [address] Dr. Tisha Carr IG % 0.5 % Normal 0.0-0.5 [facility] Comment on above: Performed By: #### U RCX #### [facility] [address] [place] [address] Dr. Tisha Carr LYMPH # 1.0 103/ul Critically low 1.2-3.8 [facility] Comment on above: Performed By: #### U RCX #### [facility] [address] [place] [address] Dr. Tisha Carr Lymphocytes/100 WBC (Bld) 8.2 % Critically low 20.5-60.0 [facility] Comment on above: Performed By: #### U RCX #### [facility] [address] [place] [address] Dr. Tisha Carr MANUAL DIFF REQ NO Normal [facility] Comment on above: Performed By: #### U RCX #### [facility] [address] [place] [address] Dr. Tisha Carr MCH (RBC) [Entitic mass] 30.3 pg Normal 26.7-34.0 [facility] Comment on above: Performed By: #### U RCX #### [facility] [address] [place] [address] Dr. Tisha Carr MCHC (RBC) [Mass/Vol] 35.0 g/dL Normal 29.9-35.2 [facility] Comment on above: Performed By: #### U RCX #### [facility] [address] [place] [address] Dr. Tisha Carr MCV (RBC) [Entitic vol] 86.4 fL Normal 81.0-99.0 [facility] Comment on above: Performed By: #### U RCX #### [facility] [address] [place] [address] Dr. Tisha Carr MONO # 0.8 103/ul Normal 0.3-0.8 [facility] Comment on above: Performed By: #### U RCX #### [facility] [address] [place] [address] Dr. Tisha Carr Monocytes/100 WBC (Bld) 6.0 % Normal 1.7-12.0 [facility] Comment on above: Performed By: #### U RCX #### [facility] [address] [place] [address] Dr. Tisha Carr NEUT # 10.8 103/ul Critically high 1.4-6.5 [facility] Comment on above: Performed By: #### U RCX #### [facility] [address] [place] [address] Dr. Tisha Carr Neutrophils/100 WBC (Bld) 84.9 % Critically high 43.0-75.0 [facility] Comment on above: Performed By: #### U RCX #### [facility] [address] [place] [address] Dr. Tisha Carr Platelet mean volume (Bld) [Entitic vol] 10.8 fL Normal 9.5-13.5 [facility] Comment on above: Performed By: #### U RCX #### [facility] [address] [place] [address] Dr. Tisha Carr PLT 237 103/ul Normal 150-450 [facility] Comment on above: Performed By: #### U RCX #### [facility] [address] [place] [address] Dr. Tisha Carr RBC 4.99 106/ul Normal 4.20-5.40 [facility] Comment on above: Performed By: #### U RCX #### [facility] [address] [place] [address] Dr. Tisha Carr WBC 12.7 103/ul Critically high 4.0-11.0 [facility] Comment on above: Performed By: #### U RCX #### [facility] [address] [place] [address] Dr. Tisha Carr CRPon 06-21-2022 CRP 10.0 mg/dL Critically high <=1.0 [facility] Comment on above: Performed By: #### C RP, CMP, LIPA #### [facility] [address] [place] [address] Dr. Tisha Carr ER URINE PROFILEon 2 Bilirubin Ql (U) SMALL Abnormal NEGATIVE [facility] Comment on above: Performed By: #### E RUR, UMICRO, PREGU #### [facility] [address] [address] [address] Tisha Carr Clarity (U) CLEAR Normal CLEAR [facility] Comment on above: Performed By: #### E RUR, UMICRO, PREGU #### [facility] [address] [address] [address] Tisha Carr Color (U) YELLOW Normal YELLOW [facility] Comment on above: Performed By: #### E RUR, UMICRO, PREGU #### [facility] [address] [address] [address] Tisha QUEZADA A micrscopic examina tion will be performed if indicated. Normal [facility] Comment on above: Performed By: #### E RUR, UMICRO, PREGU #### [facility] [address] [address] [address] Tisha Carr Glucose Ql (U) Negative Normal NEGATIVE [facility] Comment on above: Performed By: #### E RUR, UMICRO, PREGU #### [facility] [address] [address] [address] Tisha Carr Hemoglobin Ql (U) MODERATE Abnormal NEGATIVE [facility] Comment on above: Performed By: #### E RUR, UMICRO, PREGU #### [facility] [address] [address] [address] Tisha Carr Ketones Ql (U) 80 mg/dl Abnormal NEGATIVE [facility] Comment on above: Performed By: #### E RUR, UMICRO, PREGU #### [facility] [address] [address] [address] Tisha Carr LEUKOCYTES Negative Normal NEGATIVE [facility] Comment on above: Performed By: #### E RUR, UMICRO, PREGU #### [facility] [address] [address] [address] Tisha Carr Nitrite Ql (U) Negative Normal NEGATIVE [facility] Comment on above: Performed By: #### E YULY CUMMINS, PREGU #### [facility] [address] [place] [address] Dr. Tisha Carr pH (U) 6.0 [pH] Normal 5-9 [facility] Comment on above: Performed By: #### LEIGH BRYANTICELLE, PREGU #### [facility] [address] [place] [address] Dr. Tisha Carr SPEC GRAVITY 1.025 Normal 1.005-<=1.025 [facility] Comment on above: Performed By: #### Sofi RUYULY Leone, PREGU #### [facility] [address] [place] [address] Dr. Tisha Carr UA PROTEIN TRACE Normal NEGATIVE/ TRACE [facility] Comment on above: Performed By: #### YULY BRYANT, PREGU #### [facility] [address] [place] [address] Dr. Tisha Carr UR MICRO IND INDICATED Normal [facility] Comment on above: Performed By: #### YULY BRYANT, PREGU #### [facility] [address] [place] [address] Dr. Tisha Carr Urobilinogen Qn (U) 1.0 {Alma'U}/dL Normal 0.2 - 1.0 [facility] Comment on above: Performed By: #### YULY BRYANT, PREGU #### [facility] [address] [place] [address] Dr. Tisha Carr LACTATE/LACTIC ACIDon 2021 Lactate [Moles/Vol] 1.0 mmol/L Normal 0.4-1.9 [facility] Comment on above: Performed By: #### U RCX #### [facility] [address] [place] [address] Dr. Tisha Carr LIPASEon 06-21-2022 Lipase [Catalytic activity/Vol] 41.0 U/L Critically low 73.0-393.0 [facility] Comment on above: Performed By: #### C RP, CMP, LIPA #### [facility] [address] [address] [address] Tisha Carr URon 06-21-2022 , QUAL Negative Normal NEGATIVE [facility] Comment on above: Performed By: #### E RUR, UMICRO, PREGU #### [facility] [address] [address] [address] Tisha Carr PROF 14(COMP METB)on 022 Albumin [Mass/Vol] 4.0 g/dL Normal 3.4-5.[address] [facility] Comment on above: Performed By: #### C RP, CMP, LIPA #### [facility] [address] [address] [address] Tisha Carr Albumin/Globulin [Mass ratio] 1.0 {ratio} Normal [facility] Comment on above: Performed By: #### C RP, CMP, LIPA #### [facility] [address] [address] [address] Tisha Carr ALP [Catalytic activity/Vol] 74 U/L Normal 46-116 [facility] Comment on above: Performed By: #### C RP, CMP, LIPA #### [facility] [address] [place] [address] Dr. Tisha Carr ALT [Catalytic activity/Vol] 33 U/L Normal 14-59 [facility] Comment on above: Performed By: #### C RP, CMP, LIPA #### [facility] [address] [address] [address] Tisha Carr Anion gap [Moles/Vol] 15.8 mmol/L Normal [facility] Comment on above: Performed By: #### C RP, CMP, LIPA #### [facility] [address] [address] [address] Tisha Carr AST [Catalytic activity/Vol] 17 U/L Normal 15-37 [facility] Comment on above: Performed By: #### C RP, CMP, LIPA #### [facility] [address] [address] [address] Tisha Carr Bilirubin [Mass/Vol] 1.3 mg/dL Critically high 0.2-1.0 [facility] Comment on above: Performed By: #### C RP, CMP, LIPA #### [facility] [address] [place] [address] Dr. Tisha Carr Calcium [Mass/Vol] 9.2 mg/dL Normal 8.5-10.[address] [facility] Comment on above: Performed By: #### C RP, CMP, LIPA #### [facility] [address] [address] [address] Tisha Carr Chloride [Moles/Vol] 102 mmol/L Normal 98-107 [facility] Comment on above: Performed By: #### C RP, CMP, LIPA #### [facility] [address] [place] [address] Dr. Tisha Carr CO2 [Moles/Vol] 22.7 mmol/L Normal 21.0-32.0 [facility] Comment on above: Performed By: #### C RP, CMP, LIPA #### [facility] [address] [place] [address] Dr. Tisha Carr Creatinine [Mass/Vol] 0.70 mg/dL Normal 0.55-1.02 [facility] Comment on above: Performed By: #### C RP, CMP, LIPA #### [facility] [address] [place] [address] Dr. Tisha Carr EGFR-AF BURMESE >60 Normal >=60 [facility] Comment on above: Performed By: #### C RP, CMP, LIPA #### [facility] [address] [place] [address] Dr. Tisha Carr EGFR-NON AF BURMESE >60 Normal >=60 [facility] Comment on above: Performed By: #### C RP, CMP, LIPA #### [facility] [address] [place] [address] Dr. Tisha Carr Globulin (S) [Mass/Vol] 4.2 g/dL Normal [facility] Comment on above: Performed By: #### C RP, CMP, LIPA #### [facility] [address] [place] [address] Dr. Tisha Carr Glucose [Mass/Vol] 93 mg/dL Normal 74-106 [facility] Comment on above: Performed By: #### C RP, CMP, LIPA #### [facility] [address] [place] [address] Dr. Tisha Carr Potassium [Moles/Vol] 3.5 mmol/L Normal 3.5-5.1 [facility] Comment on above: Performed By: #### C RP, CMP, LIPA #### [facility] [address] [place] [address] Dr. Tisha Carr Protein [Mass/Vol] 8.2 g/dL Normal 6.4-8.2 [facility] Comment on above: Performed By: #### C RP, CMP, LIPA #### [facility] [address] [place] [address] Dr. Tisha Carr Sodium [Moles/Vol] 137 mmol/L Normal 136-145 [facility] Comment on above: Performed By: #### C RP, CMP, LIPA #### [facility] [address] [place] [address] Dr. Tisha Carr Urea nitrogen [Mass/Vol] 16.0 mg/dL Normal 7.0-18.0 [facility] Comment on above: Performed By: #### C RP, CMP, LIPA #### [facility] [address] [place] [address] Dr. Tisha Carr Urea nitrogen/Creatinin e [Mass ratio] 22.9 mg/mg Normal [facility] Comment on above: Performed By: #### C RP, CMP, LIPA #### [facility] [address] [place] [address] Dr. Tisha Carr URINE MICROSCOPIC ONLYon BACTERIA TRACE Abnormal NONE SEEN [facility] Comment on above: Performed By: #### E YULY CUMMINS PREGU #### [facility] [address] [place] [address] Dr. Tisha Carr Bacteria identified Cx Nom (U) NOT INDICATED Normal [facility] Comment on above: Performed By: #### E LEIGH CUMMINSICRO, PREGU #### [facility] [address] [address] [address] Tisha Carr CAST NONE SEEN Normal NONE SEEN [facility] Comment on above: Performed By: #### E YULY CUMMINS, PREGU #### [facility] [address] [address] [address] Tisha Carr Crystals LM Nom (Urine sed) NONE SEEN Normal NONE SEEN [facility] Comment on above: Performed By: #### YULY BRYANT, PREGU #### [facility] [address] [place] [address] Dr. Tisha Carr Epithelial cells LM Ql (Urine sed) MODERATE Abnormal NONE SEEN /RARE [facility] Comment on above: Performed By: #### YULY BRYANT, PREGU #### [facility] [address] [place] [address] Dr. Tisha Carr MUCOUS MODERATE Abnormal NONE SEEN [facility] Comment on above: Performed By: #### YULY BRYANT, PREGU #### [facility] [address] [place] [address] Dr. Tisha Carr RBC 0-2 Normal 0-2 [facility] Comment on above: Performed By: #### YULY BRYANT, PREGU #### [facility] [address] [place] [address] Dr. Tisha Carr WBC 0-2 Abnormal NONE SEEN [facility] Comment on above: Performed By: #### YULY BRYANT, PREGU #### [facility] [address] [place] [address] Dr. Tisha Carr PAP ACOG PANEL 2: 21 to 29on 04-11-2022 . . Normal [facility] Comment on above: Performed By: #### U RCX #### [facility] [address] [place] [address] Dr. Tisha Carr Age Gdln ACOG Testing 21-29 Normal [facility] Comment on above: Performed By: #### U RCX #### [facility] [address] [place] [address] Dr. Tisha Carr DIAGNOSIS: Comment Normal [facility] Comment on above: Result Comment: NEGA TIVE FOR INTRAEPITHELIAL LESION OR MALIGNANCY. FUNGAL ORGANISMS MORPHOLOGICALLY CONSISTENT WITH SHEREE SPECIES ARE PRESENT. Performed By: #### U RCX #### [facility] [address] [address] [address] Tisha Carr Methodology: Comment Normal [facility] Comment on above: Result Comment: This liquid based ThinPrep(R) pap test was screened with the use of an image guided system. Performed By: #### U RCX #### [facility] [address] [address] [address] Tisha Carr Note: Comment Normal [facility] Comment on above: Result Comment: The Pap smear is a screening test designed to aid in the detection of premalignant and malignant conditions of the uterine cervix. It is not a diagnostic procedure and should not be used as the sole means of detecting cervical cancer. Both false-positive and false-negative reports do occur. . Performed By: #### U RCX #### [facility] [address] [address] [address] Tisha Carr Performed by: Comment Normal [facility] Comment on above: Result Comment: Caleb Schaeffer, Core Carrier (ASCP) Performed By: #### U RCX #### [facility] [address] [address] [address] Tisha Carr Reflex Criteria: Comment Normal [facility] Comment on above: Result Comment: The HPV DNA reflex criteria were not met with this specimen result therefore, no HPV testing was performed. . Performed By: #### U RCX #### [facility] [address] [address] [address] Tisha Carr Specimen adequacy: Comment Normal [facility] Comment on above: Result Comment: Sati sfactory for evaluation. Endocervical and/or squamous metaplastic cells (endocervical component) are present. Performed By: #### U RCX #### [facility] [address] [address] [address] Tisha Carr CULTURE URINEon 01-08-2022 CULTURE [...] Trimethoprim/Sulfamethox azole <=20 S F Normal [facility] Comment on above: Performed By: #### U RCX #### [facility] [facility] [address] [place] [id number] Tisha Carr Covid-19 PCR (CVDTB)on 12-23 SARS-CoV-2 (COVID-19) RNA OC+probe Ql (Unsp spec) Not detected Normal NOT DETECTED [facility] Comment on above: Result Comment: This test is not yet approved or cleared by the [place] FDA. When there are no FDA-approved or cleared tests available, and other criteria are met, FDA can make tests available under an emergency access mechanism called an Emergency Use Authorization (EUA). The EUA for this test is supported by the Structural Draftsman of Health and Human Service's (HHS's) declaration [...] SARS-CoV-2. Performed By: #### C VDTBH #### [facility] [address] [place] [id number] Tisha Carr ER URINE PROFILEon 2 Bilirubin Ql (U) MODERATE Abnormal NEGATIVE [facility] Comment on above: Performed By: #### E RUR, UMICRO, PREGU #### [facility] [address] [place] [address] Dr. Tisha Carr Clarity (U) CLEAR Normal CLEAR [facility] Comment on above: Performed By: #### E RUR, UMICRO, PREGU #### [facility] [address] [address] [address] Tisha Carr Color (U) DK. YELLOW Normal YELLOW [facility] Comment on above: Performed By: #### E RUR, UMICRO, PREGU #### [facility] [address] [address] [address] Tisha QUEZADA A micrscopic examina tion will be performed if indicated. Normal [facility] Comment on above: Performed By: #### E RUR, UMICRO, PREGU #### [facility] [address] [place] [address] Dr. Tisha Carr Glucose Ql (U) Negative Normal NEGATIVE [facility] Comment on above: Performed By: #### E RUR, UMICRO, PREGU #### [facility] [address] [place] [address] Dr. Tisha Carr Hemoglobin Ql (U) Negative Normal NEGATIVE [facility] Comment on above: Performed By: #### E RUR, UMICRO, PREGU #### [facility] [address] [address] [address] Tisha Carr Ketones Ql (U) >=80 Abnormal NEGATIVE [facility] Comment on above: Performed By: #### E RUR, UMICRO, PREGU #### [facility] [address] [address] [address] Tisha Carr LEUKOCYTES TRACE Abnormal NEGATIVE [facility] Comment on above: Performed By: #### E RUR, UMICRO, PREGU #### [facility] [address] [place] [address] Dr. Tisha Carr Nitrite Ql (U) Negative Normal NEGATIVE [facility] Comment on above: Performed By: #### E RUR, UMICRO, PREGU #### [facility] [address] [place] [address] Dr. Tisha Carr pH (U) 6.0 [pH] Normal 5-9 [facility] Comment on above: Performed By: #### YULY BRYANT, PREGU #### [facility] [address] [place] [address] Dr. Tisha Carr Protein (U) [Mass/Vol] 100 mg/dL Abnormal NEGATIVE/ TRACE [facility] Comment on above: Performed By: #### YULY BRYANT, PREGU #### [facility] [address] [place] [address] Dr. Tisha Carr SPEC GRAVITY 1.025 Normal 1.005-<=1.025 [facility] Comment on above: Performed By: #### YULY BRYANT, PREGU #### [facility] [address] [place] [address] Dr. Tisah Carr UR MICRO IND INDICATED Normal [facility] Comment on above: Performed By: #### YULY BRYANT, PREGU #### [facility] [address] [place] [address] Dr. Tisha Carr Urobilinogen Qn (U) 1.0 {Alma'U}/dL Normal 0.2 - 1.0 [facility] Comment on above: Performed By: #### YULY BRYANT PREGU #### [facility] [address] [place] [address] Dr. Tisha Carr INFLUENZA A AND B AGon 01-06 INFLUANEGH SEE BELOW Normal [facility] Comment on above: Result Comment: Nega tive for Flu A protein angiten. Infection due to Flu A cannot be ruled out. Flu A angiten in the sample may be below the detection limit of the test. Performed By: #### U RCX #### [facility] [address] [place] [address] Dr. Tisha Carr INFLUBNEGH SEE BELOW Normal [facility] Comment on above: Result Comment: Nega tive for Flu B protein antigen. Infection due to Flu B cannot be ruled out. Flu B antigen in the sample may be below the detection limit of the test. Performed By: #### U RCX #### [facility] [address] [place] [address] Dr. Tisha Carr INFLUENZA A AG Negative Normal NEGATIVE SEE COMMENT [facility] Comment on above: Performed By: #### U RCX #### [facility] [address] [place] [address] Dr. Tisha Carr INFLUENZA B AG Negative Normal NEGATIVE SEE COMMENT [facility] Comment on above: Performed By: #### U RCX #### [facility] [address] [place] [address] Dr. Tisha Carr INTERNAL CONTROLS Within Normal Limits Normal Wi thin Normal Limits [facility] Comment on above: Performed By: #### U RCX #### [facility] [address] [place] [address] Dr. Tisha Carr URon 01-06-2022 , QUAL Negative Normal NEGATIVE [facility] Comment on above: Performed By: #### E RUR, UMICRO, PREGU #### [facility] [address] [place] [address] Dr. Tisha Carr URINE MICROSCOPIC ONLYon BACTERIA SMALL Abnormal NONE SEEN [facility] Comment on above: Performed By: #### U RCX #### [facility] [address] [place] [address] Dr. Tisha Carr Bacteria identified Cx Nom (U) INDICATED Normal [facility] Comment on above: Performed By: #### U RCX #### [facility] [address] [place] [address] Dr. Tisha Carr CAST NONE SEEN Normal NONE SEEN [facility] Comment on above: Performed By: #### U RCX #### [facility] [address] [place] [address] Dr. Tisha Carr Crystals LM Nom (Urine sed) NONE SEEN Normal NONE SEEN [facility] Comment on above: Performed By: #### U RCX #### [facility] [address] [place] [address] Dr. Tisha Carr Epithelial cells LM Ql (Urine sed) MANY Abnormal NONE SEEN /RARE [facility] Comment on above: Performed By: #### U RCX #### [facility] [address] [place] [address] Dr. Tisha Carr MUCOUS LARGE Abnormal NONE SEEN [facility] Comment on above: Performed By: #### U RCX #### [facility] [address] [place] [address] Dr. Tisha Carr RBC NONE SEEN Abnormal 0-2 [facility] Comment on above: Performed By: #### U RCX #### [facility] [address] [place] [address] Dr. Tisha Carr WBC 5-10 Abnormal NONE SEEN [facility] Comment on above: Performed By: #### U RCX #### [facility] [address] [place] [address] Dr. Tisha Carr Vital Signs Date Time Vital Sign Value Performing Clinician Faci lity 09-22-2023 16:01-0500 Body weight 89.09 kg Belkis Jessica DO Work Phone: [facility] 09-22-2023 16:01-0500 Diastolic blood pressure 70 mm[Hg] Belkis Jessica DO Work Phone: [facility] 09-22-2023 16:01-0500 Systolic blood pressure 120 [...] PM EST Routine [facility] [address] [facility] [place] [address] Belkis Lopez, [address] [place] [address] [facility] Start: 09-22-2023 End: 09-22-2024 Alpha fetoprotein, maternal Alpha fetoprotein, maternal Lab Routine Second trimester Need for maternal serum alpha-protein (MSAFP) screening Expected: 09/22/2023 (Approximate), Expires: 09/22/2024 [facility] Comment on above: Expected: 09/22/2023 (Approximate), Expires: 09/22/2024 Start: 09-22-2023 End: 09-22-2024 US for US OB ANATOMY SINGLE W US OB CERVICAL LENGTH Imaging Routine Screening, , for anatomic survey Expected: 09/22/2023 (Approximate), Expires: 09/22/2024 [facility] Comment on above: Expected: 09/22/2023 (Approximate), Expires: 09/22/2024 CHLAMYDIA TRACHOMATI S (GENITO/STI) CHLAMYDIA TRACHOMATIS (GENITO/STI) Lab Routine Exposure to STD Ordered: 09/22/2023 [facility] Comment on above: Ordered: 09/22/2023 Cytology Cervical or vaginal smear or scraping study Pap Smear Pathology and Cytology Routine Well woman exam with routine gynecological exam Ordered: 09/22/2023 [facility] Comment on above: Ordered: 09/22/2023 Neisseria gonorrhoea e DNA [Presence] in Unspecified specimen by OC with probe detection Neisseria gonorrhea DNA probe, direct Lab Routine Exposure to STD Ordered: 09/22/2023 [facility] Comment on above: Ordered: 09/22/2023 SURESWAB(R) ADVANCED VAGINITIS PLUS, TMA SURESWAB(R) ADVANCED VAGINITIS PLUS, TMA Pathology and Cytology Routine Exposure to STD Ordered: 09/22/2023 [facility] Work Phone: Comment on above: Ordered: 09/22/2023 Payers Date Payer Category Payer Medicaid [employer] [place] [employer] [id number] 2021-Present [address] [place] [address] [id number] 2000 Unknown [id number] [id number] 2000 Unknown [id number] [id number] 2000 Unknown [id number] [id number] 2000 Unknown [id number] 2.16.840.1.983008.3.579.2.593 2000 Unknown [id number] 2.16.840.1.835970.3.579.2.1259 2000 Unknown [id number] 2.16.840.1.553108.3.579.2.1259 2000 Unknown [id number] 2.16.840.1.732005.3.579.2.1259 2000 Unknown [id number] 2.16.840.1.981682.3.579.2.9 2000 Unknown [id number] 2.16.840.1.886304.3.579.2.9 2000 Unknown [id number] 2.16.840.1.405781.3.579.2.9 2000 Unknown [id number] 2.16.840.1.146262.3.579.2.9 2000 Unknown [id number] 2.16.840.1.754581.3.579.2.1259 1959 Unknown [id number] Social History Date Type Detail Facility Tobacco smoking stat [facility] Tobacco smoking consumption unknown [facility] Start: 05-22-2023 [facility] Start: 2000 Sex Assigned At Female [facility] Start: 07-03-2023 Gender identity Identifies as female gender (finding) [facility] Sexual orientation Not on file [facility] History of Present illness Narrative 09-22-2023 Nora Riggs, [employer]OR - 09/22/2023 3:20 PM EST Note Date [...] Problems Past Medical History: Diagnosis Date Asthma ([facility] No family history on file. Social History [...] nursing note reviewed. Exam conducted with a portfolio strategist present. Vitals: There is no height or [...] DATE CREATED AUTHOR AUTHOR'S ORGANIZ ATION 12/23/2023 [facility] EPIC Reason for Visit (unrecogniz ed [...] BE BASED ON THE PRIMARY CLINICAL RECORDS. [employer] provides no warranty or guarantee of the accuracy or completeness of information in this document.
[2023-12-31 10:13] VITALS: BP 114/74; PULSE 87
== END 2023-12-31 10:46 | disposition home or self-care (01) ==
LOC: FBCO 07:27 → FBC 10:08
PROVIDERS: PCP Nurse Practitioner Family; Visit Provider Obstetrics & Gynecology
DX: O24.419 Gestational diabetes mellitus in pregnancy, unspecified control (principal)
CPT/HCPCS: 59025

== ENCOUNTER 2024-01-03 05:47 | Outpatient (OUT) | payer OTHER, SELFPAY ==
--- OUTSIDE RECORDS SUMMARY | 2024-01-03 05:51 | XMS_ITS | CCD ---
Author Organization [facility] Care Team Providers Care Roll Over Loader Name Role Phone JOSE ., LITA Admitting [...] (1 source) Ibuprofen Drug Allergy 01-15-2016 [facility] Repository (2 sources) Ibuprofen Drug Allergy [...] GDLNon AGE GDLN ACOG TESTING Note . [facility] Comment on above: TESTS RESULT FLAG UN ITS REF RANGE LAB Clinician Provided Cytology Information Source.............Cervix Other.............. No. of containers..01 ThinPrep Vial Age Algo ACOG Bina... - 01 FLAG LEGEND: L-Low Normal,H-High Normal,LL-Alert Low,HH-Alert High <-Panic Low,>-Panic High,A-Abnormal,AA-Critical Abnormal Performed at: 01 =G [address] [id number] Lali Holloway MD, IGP, RFX APTIMA HPV ASCU Note . [facility] Comment on above: TESTS RESULT FLAG UN ITS REF RANGE LAB DIAGNOSIS: 02 NEGATIVE FOR INTRAEPITHELIAL LESION OR MALIGNANCY. Specimen adequacy: 02 Satisfactory for evaluation. No endocervical component is identified. An endocervical component is not commonly seen in the patient. Performed by: 02 Kieran Pickering, Aerospace Engineer Officer Armament ([facility]) . 02 Note: Note 02 The [...] Low,>-Panic High,A-Abnormal,AA-Critical Abnormal Performed at: [address] [facility] [address] [place] [address] Lali Holloway MD, Performed at: =G - [facility] [address], [place] [id number] Head Piece Assembler: Lali Holloway MD, Phone: [phone] Performed at: [facility] [address] [id number] Head Piece Assembler: Lali Holloway MD, Phone: [phone] [facility] Urinalysis macro (dipstick) panel (U)on 09-22-2023 Bilirubin, UA Negative Negative - 4(70) +++ mg/dL [facility] Blood, UA Negative Negative - 50 Flash/mcL [facility] Clarity, UA Clear [facility] Color, UA Yellow [facility] Glucose, UA Negative Negative - 1999(110) ++++ mg/dL [facility] Interpretation and review of laboratory results Abnormal [facility] Ketones, UA Positive Negative - 160(16) ++++ mg/dL [facility] Leukocytes, UA Negative Negative - 500+++ Taylor/mcL [facility] Nitrite, UA Negative Negative - Positive [facility] pH, UA 5.5 5 - 9 [facility] Protein, UA Negative Negative - 1999(20) ++++ mg/dL [facility] Spec Grav, UA 1.020 1 - 1.03 [facility] Urobilinogen, UA 0.2 0.2 - 12 mg/dL [facility] COMPLIANCE DRUG SCREENon PDF . Normal [facility] Comment on above: Performed By: #### U RCX #### [facility] [address] [address] [address] Tisha Carr Summary FINAL [facility] Comment on above: Result Comment: = [...] test is not intended to distinguish between bfalf-2-czutyqmrchvfjanyirpq, the predominant form of THC in most herbal or marijuana-based products, and pajxs-4-kcbakpwsexqcqmkbxnhx. Methylphenidate PRESENT UNEXPECTED Ritalinic Acid PRESENT UNEXPECTED [...] = Performed By: #### U RCX #### [facility] [address] [place] [address] Dr. Tisha Carr URIC ACID RAND URINEon 10-31 Uric Acid, Urine 67.3 mg/dL Normal Not Estab. [facility] Comment on above: Performed By: #### U RCX #### [facility] [address] [place] [address] Dr. Tisha Carr DRUG SCREEN RAPID (URINE)on 10-30-2022 AMP Negative Normal NEGATIVE [facility] Comment on above: Performed By: #### U RCX #### [facility] [address] [place] [address] Dr. Tisha Carr BAR Negative Normal NEGATIVE [facility] Comment on above: Performed By: #### U RCX #### [facility] [address] [place] [address] Dr. Tisha Carr BUP Negative Normal NEGATIVE [facility] Comment on above: Performed By: #### U RCX #### [facility] [address] [place] [address] Dr. Tisha Carr BZO Negative Normal NEGATIVE [facility] Comment on above: Performed By: #### U RCX #### [facility] [address] [place] [address] Dr. Tisha Carr SOCRATES Negative Normal NEGATIVE [facility] Comment on above: Performed By: #### U RCX #### [facility] [address] [place] [address] Dr. Tisha Carr CUT-OFFS SEE BELOW Normal [facility] Comment on above: Result Comment: AMP [...] ng/mL Performed By: #### U RCX #### [facility] [address] [place] [address] Dr. Tisha Carr DRUG CUT HEADER DRUG CLASS TEST SYST EM CUT-OFF CONCENTRATIONS ARE FOLLOWS: Normal [facility] Comment on above: Performed By: #### U RCX #### [facility] [address] [place] [address] Dr. Tisha Carr mAMP Negative Normal NEGATIVE [facility] Comment on above: Performed By: #### U RCX #### [facility] [address] [place] [address] Dr. Tisha Carr MTD Negative Normal NEGATIVE [facility] Comment on above: Performed By: #### U RCX #### [facility] [address] [place] [address] Dr. Tisha Carr OPI Negative Normal NEGATIVE [facility] Comment on above: Performed By: #### U RCX #### [facility] [address] [place] [address] Dr. Tisha Carr OXY Negative Normal NEGATIVE [facility] Comment on above: Performed By: #### U RCX #### [facility] [address] [address] [address] Tisha Carr PCP Negative Normal NEGATIVE [facility] Comment on above: Performed By: #### U RCX #### [facility] [address] [place] [address] Dr. Tisha Carr PPX Negative Normal NEGATIVE [facility] Comment on above: Performed By: #### U RCX #### [facility] [address] [place] [address] Dr. Tisha Carr TCA Negative Normal NEGATIVE [facility] Comment on above: Performed By: #### U RCX #### [facility] [address] [place] [address] Dr. Tisha Carr THC Positive Abnormal NEGATIVE [facility] Comment on above: Performed By: #### U RCX #### [facility] [address] [place] [address] Dr. Tisha Carr CBC AUTO DIFFon 06-21-2022 BASO # 0.0 103/ul Normal 0.0-0.1 [facility] Comment on above: Performed By: #### U RCX #### [facility] [address] [place] [address] Dr. Tisha Carr Basophils/100 WBC (Bld) 0.2 % Normal 0.2-2.0 [facility] Comment on above: Performed By: #### U RCX #### [facility] [address] [place] [address] Dr. Tisha Carr EO # 0.0 103/ul Normal 0.0-0.7 [facility] Comment on above: Performed By: #### U RCX #### [facility] [address] [place] [address] Dr. Tisha Carr Eosinophils/100 WBC (Bld) 0.2 % Critically low 0.9-7.0 [facility] Comment on above: Performed By: #### U RCX #### [facility] [address] [place] [address] Dr. Tisha Carr Erythrocyte distribution width (RBC) [Ratio] 12.3 % Normal 11.0-15.0 [facility] Comment on above: Performed By: #### U RCX #### [facility] [address] [place] [address] Dr. Tisha Carr Hematocrit (Bld) [Volume fraction] 43.1 % Normal 36.0-48.0 [facility] Comment on above: Performed By: #### U RCX #### [facility] [address] [place] [address] Dr. Tisah Carr Hemoglobin (Bld) [Mass/Vol] 15.1 g/dL Normal 12.0-16.0 [facility] Comment on above: Performed By: #### U RCX #### [facility] [address] [place] [address] Dr. Tisha Carr IG # 0.06 10e3/ul Critically high 0.00-0.03 [facility] Comment on above: Performed By: #### U RCX #### [facility] [address] [place] [address] Dr. Tisha Carr IG % 0.5 % Normal 0.0-0.5 [facility] Comment on above: Performed By: #### U RCX #### [facility] [address] [place] [address] Dr. Tisha Carr LYMPH # 1.0 103/ul Critically low 1.2-3.8 [facility] Comment on above: Performed By: #### U RCX #### [facility] [address] [place] [address] Dr. Tisha Carr Lymphocytes/100 WBC (Bld) 8.2 % Critically low 20.5-60.0 [facility] Comment on above: Performed By: #### U RCX #### [facility] [address] [place] [address] Dr. Tisha Carr MANUAL DIFF REQ NO Normal [facility] Comment on above: Performed By: #### U RCX #### [facility] [address] [place] [address] Dr. Tisha Carr MCH (RBC) [Entitic mass] 30.3 pg Normal 26.7-34.0 [facility] Comment on above: Performed By: #### U RCX #### [facility] [address] [place] [address] Dr. Tisha Carr MCHC (RBC) [Mass/Vol] 35.0 g/dL Normal 29.9-35.2 [facility] Comment on above: Performed By: #### U RCX #### [facility] [address] [place] [address] Dr. Tisha Carr MCV (RBC) [Entitic vol] 86.4 fL Normal 81.0-99.0 [facility] Comment on above: Performed By: #### U RCX #### [facility] [address] [place] [address] Dr. Tisha Carr MONO # 0.8 103/ul Normal 0.3-0.8 [facility] Comment on above: Performed By: #### U RCX #### [facility] [address] [place] [address] Dr. Tisha Carr Monocytes/100 WBC (Bld) 6.0 % Normal 1.7-12.0 [facility] Comment on above: Performed By: #### U RCX #### [facility] [address] [place] [address] Dr. Tisha Carr NEUT # 10.8 103/ul Critically high 1.4-6.5 [facility] Comment on above: Performed By: #### U RCX #### [facility] [address] [place] [address] Dr. Tisha Carr Neutrophils/100 WBC (Bld) 84.9 % Critically high 43.0-75.0 [facility] Comment on above: Performed By: #### U RCX #### [facility] [address] [place] [address] Dr. Tisha Carr Platelet mean volume (Bld) [Entitic vol] 10.8 fL Normal 9.5-13.5 [facility] Comment on above: Performed By: #### U RCX #### [facility] [address] [place] [address] Dr. Tisha Carr PLT 237 103/ul Normal 150-450 [facility] Comment on above: Performed By: #### U RCX #### [facility] [address] [place] [address] Dr. Tisha Carr RBC 4.99 106/ul Normal 4.20-5.40 [facility] Comment on above: Performed By: #### U RCX #### [facility] [address] [place] [address] Dr. Tisha Carr WBC 12.7 103/ul Critically high 4.0-11.0 [facility] Comment on above: Performed By: #### U RCX #### [facility] [address] [place] [address] Dr. Tisha Carr CRPon 06-21-2022 CRP 10.0 mg/dL Critically high <=1.0 [facility] Comment on above: Performed By: #### C RP, CMP, LIPA #### [facility] [address] [place] [address] Dr. Tisha Carr ER URINE PROFILEon 2 Bilirubin Ql (U) SMALL Abnormal NEGATIVE [facility] Comment on above: Performed By: #### E RUR, UMICRO, PREGU #### [facility] [address] [address] [address] Tisha Carr Clarity (U) CLEAR Normal CLEAR [facility] Comment on above: Performed By: #### E RUR, UMICRO, PREGU #### [facility] [address] [address] [address] Tisha Carr Color (U) YELLOW Normal YELLOW [facility] Comment on above: Performed By: #### E RUR, UMICRO, PREGU #### [facility] [address] [address] [address] Tisha QUEZADA A micrscopic examina tion will be performed if indicated. Normal [facility] Comment on above: Performed By: #### E RUR, UMICRO, PREGU #### [facility] [address] [address] [address] Tisha Carr Glucose Ql (U) Negative Normal NEGATIVE [facility] Comment on above: Performed By: #### E RUR, UMICRO, PREGU #### [facility] [address] [address] [address] Tisha Carr Hemoglobin Ql (U) MODERATE Abnormal NEGATIVE [facility] Comment on above: Performed By: #### E RUR, UMICRO, PREGU #### [facility] [address] [address] [address] Tisha Carr Ketones Ql (U) 80 mg/dl Abnormal NEGATIVE [facility] Comment on above: Performed By: #### E RUR, UMICRO, PREGU #### [facility] [address] [address] [address] Tisha Carr LEUKOCYTES Negative Normal NEGATIVE [facility] Comment on above: Performed By: #### E RUR, UMICRO, PREGU #### [facility] [address] [address] [address] Tisha Carr Nitrite Ql (U) Negative Normal NEGATIVE [facility] Comment on above: Performed By: #### E YULY CUMMINS, PREGU #### [facility] [address] [place] [address] Dr. Tisha Carr pH (U) 6.0 [pH] Normal 5-9 [facility] Comment on above: Performed By: #### LEIGH BRYANTICELLE, PREGU #### [facility] [address] [place] [address] Dr. Tisha Carr SPEC GRAVITY 1.025 Normal 1.005-<=1.025 [facility] Comment on above: Performed By: #### Sofi RUYULY Leone, PREGU #### [facility] [address] [place] [address] Dr. Tisha Carr UA PROTEIN TRACE Normal NEGATIVE/ TRACE [facility] Comment on above: Performed By: #### YULY BRYANT, PREGU #### [facility] [address] [place] [address] Dr. Tisha Carr UR MICRO IND INDICATED Normal [facility] Comment on above: Performed By: #### YULY BRYANT, PREGU #### [facility] [address] [place] [address] Dr. Tisha Carr Urobilinogen Qn (U) 1.0 {Alma'U}/dL Normal 0.2 - 1.0 [facility] Comment on above: Performed By: #### YULY BRYANT, PREGU #### [facility] [address] [place] [address] Dr. Tisha Carr LACTATE/LACTIC ACIDon 2021 Lactate [Moles/Vol] 1.0 mmol/L Normal 0.4-1.9 [facility] Comment on above: Performed By: #### U RCX #### [facility] [address] [place] [address] Dr. Tisha Carr LIPASEon 06-21-2022 Lipase [Catalytic activity/Vol] 41.0 U/L Critically low 73.0-393.0 [facility] Comment on above: Performed By: #### C RP, CMP, LIPA #### [facility] [address] [address] [address] Tisha Carr URon 06-21-2022 , QUAL Negative Normal NEGATIVE [facility] Comment on above: Performed By: #### E RUR, UMICRO, PREGU #### [facility] [address] [address] [address] Tisha Carr PROF 14(COMP METB)on 022 Albumin [Mass/Vol] 4.0 g/dL Normal 3.4-5.0 [facility] Comment on above: Performed By: #### C RP, CMP, LIPA #### [facility] [address] [address] [address] Tisha Carr Albumin/Globulin [Mass ratio] 1.0 {ratio} Normal [facility] Comment on above: Performed By: #### C RP, CMP, LIPA #### [facility] [address] [address] [address] Tisha Crar ALP [Catalytic activity/Vol] 74 U/L Normal 46-116 [facility] Comment on above: Performed By: #### C RP, CMP, LIPA #### [facility] [address] [place] [address] Dr. Tisha Carr ALT [Catalytic activity/Vol] 33 U/L Normal 14-59 [facility] Comment on above: Performed By: #### C RP, CMP, LIPA #### [facility] [address] [address] [address] Tisha Carr Anion gap [Moles/Vol] 15.8 mmol/L Normal [facility] Comment on above: Performed By: #### C RP, CMP, LIPA #### [facility] [address] [address] [address] Tisha Carr AST [Catalytic activity/Vol] 17 U/L Normal 15-37 [facility] Comment on above: Performed By: #### C RP, CMP, LIPA #### [facility] [address] [address] [address] Tisha Carr Bilirubin [Mass/Vol] 1.3 mg/dL Critically high 0.2-1.0 [facility] Comment on above: Performed By: #### C RP, CMP, LIPA #### [facility] [address] [place] [address] Dr. Tisha Carr Calcium [Mass/Vol] 9.2 mg/dL Normal 8.5-10.1 [facility] Comment on above: Performed By: #### C RP, CMP, LIPA #### [facility] [address] [address] [address] Tisha Carr Chloride [Moles/Vol] 102 mmol/L Normal 98-107 [facility] Comment on above: Performed By: #### C RP, CMP, LIPA #### [facility] [address] [place] [address] Dr. Tisha Carr CO2 [Moles/Vol] 22.7 mmol/L Normal 21.0-32.0 [facility] Comment on above: Performed By: #### C RP, CMP, LIPA #### [facility] [address] [place] [address] Dr. Tisha Carr Creatinine [Mass/Vol] 0.70 mg/dL Normal 0.55-1.02 [facility] Comment on above: Performed By: #### C RP, CMP, LIPA #### [facility] [address] [place] [address] Dr. Tisha Carr EGFR-AF TURKMEN >60 Normal >=60 [facility] Comment on above: Performed By: #### C RP, CMP, LIPA #### [facility] [address] [place] [address] Dr. Tisha Carr EGFR-NON AF TURKMEN >60 Normal >=60 [facility] Comment on above: Performed By: #### C RP, CMP, LIPA #### [facility] [address] [place] [address] Dr. Tisha Carr Globulin (S) [Mass/Vol] 4.2 g/dL Normal [facility] Comment on above: Performed By: #### C RP, CMP, LIPA #### [facility] [address] [place] [address] Dr. Tisha Carr Glucose [Mass/Vol] 93 mg/dL Normal 74-106 [facility] Comment on above: Performed By: #### C RP, CMP, LIPA #### [facility] [address] [place] [address] Dr. Tisha Carr Potassium [Moles/Vol] 3.5 mmol/L Normal 3.5-5.1 [facility] Comment on above: Performed By: #### C RP, CMP, LIPA #### [facility] [address] [place] [address] Dr. Tisha Carr Protein [Mass/Vol] 8.2 g/dL Normal 6.4-8.2 [facility] Comment on above: Performed By: #### C RP, CMP, LIPA #### [facility] [address] [place] [address] Dr. Tisha Carr Sodium [Moles/Vol] 137 mmol/L Normal 136-145 [facility] Comment on above: Performed By: #### C RP, CMP, LIPA #### [facility] [address] [place] [address] Dr. Tisha Carr Urea nitrogen [Mass/Vol] 16.0 mg/dL Normal 7.0-18.0 [facility] Comment on above: Performed By: #### C RP, CMP, LIPA #### [facility] [address] [place] [address] Dr. Tisha Carr Urea nitrogen/Creatinin e [Mass ratio] 22.9 mg/mg Normal [facility] Comment on above: Performed By: #### C RP, CMP, LIPA #### [facility] [address] [place] [address] Dr. Tisha Carr URINE MICROSCOPIC ONLYon BACTERIA TRACE Abnormal NONE SEEN [facility] Comment on above: Performed By: #### E YULY CUMMINS PREGU #### [facility] [address] [place] [address] Dr. Tisha Carr Bacteria identified Cx Nom (U) NOT INDICATED Normal [facility] Comment on above: Performed By: #### E LEIGH CUMMINSICRO, PREGU #### [facility] [address] [address] [address] Tisha Carr CAST NONE SEEN Normal NONE SEEN [facility] Comment on above: Performed By: #### E YULY CUMMINS, PREGU #### [facility] [address] [address] [address] Tisha Carr Crystals LM Nom (Urine sed) NONE SEEN Normal NONE SEEN [facility] Comment on above: Performed By: #### YULY BRYANT, PREGU #### [facility] [address] [place] [address] Dr. Tisha Carr Epithelial cells LM Ql (Urine sed) MODERATE Abnormal NONE SEEN /RARE [facility] Comment on above: Performed By: #### YULY BRYANT, PREGU #### [facility] [address] [place] [address] Dr. Tisha Carr MUCOUS MODERATE Abnormal NONE SEEN [facility] Comment on above: Performed By: #### YULY BRYANT, PREGU #### [facility] [address] [place] [address] Dr. Tisha Carr RBC 0-2 Normal 0-2 [facility] Comment on above: Performed By: #### YULY BRYANT, PREGU #### [facility] [address] [place] [address] Dr. Tisha Carr WBC 0-2 Abnormal NONE SEEN [facility] Comment on above: Performed By: #### YULY BRYANT, PREGU #### [facility] [address] [place] [address] Dr. Tisha Carr PAP ACOG PANEL 2: 21 to 29on 04-11-2022 . . Normal [facility] Comment on above: Performed By: #### U RCX #### [facility] [address] [place] [address] Dr. Tisha Carr Age Gdln ACOG Testing 21-29 Normal [facility] Comment on above: Performed By: #### U RCX #### [facility] [address] [place] [address] Dr. Tisha Carr DIAGNOSIS: Comment Normal [facility] Comment on above: Result Comment: NEGA TIVE FOR INTRAEPITHELIAL LESION OR MALIGNANCY. FUNGAL ORGANISMS MORPHOLOGICALLY CONSISTENT WITH SHEREE SPECIES ARE PRESENT. Performed By: #### U RCX #### [facility] [address] [address] [address] Tisha Carr Methodology: Comment Normal [facility] Comment on above: Result Comment: This liquid based ThinPrep(R) pap test was screened with the use of an image guided system. Performed By: #### U RCX #### [facility] [address] [address] [address] Tisha Carr Note: Comment Normal [facility] Comment on above: Result Comment: The Pap smear is a screening test designed to aid in the detection of premalignant and malignant conditions of the uterine cervix. It is not a diagnostic procedure and should not be used as the sole means of detecting cervical cancer. Both false-positive and false-negative reports do occur. . Performed By: #### U RCX #### [facility] [address] [address] [address] Tisha Carr Performed by: Comment Normal [facility] Comment on above: Result Comment: Caleb Schaeffer, Aerospace Engineer Officer [employer] ([employer]) Performed By: #### U RCX #### [facility] [address] [address] [address] Tisha Carr Reflex Criteria: Comment Normal [facility] Comment on above: Result Comment: The HPV DNA reflex criteria were not met with this specimen result therefore, no HPV testing was performed. . Performed By: #### U RCX #### [facility] [address] [address] [address] Tisha Carr Specimen adequacy: Comment Normal [facility] Comment on above: Result Comment: Sati sfactory for evaluation. Endocervical and/or squamous metaplastic cells (endocervical component) are present. Performed By: #### U RCX #### [facility] [address] [address] [address] Tisha Carr CULTURE URINEon 01-08-2022 CULTURE [...] Trimethoprim/Sulfamethox azole <=20 S F Normal [facility] Comment on above: Performed By: #### U RCX #### [facility] [address] [place] [address] [id number] [address] Tisha Carr Covid-19 PCR (CVDTB)on 12-23 SARS-CoV-2 (COVID-19) RNA OC+probe Ql (Unsp spec) Not detected Normal NOT DETECTED [facility] Comment on above: Result Comment: This test is not yet approved or cleared by the [place] FDA. When there are no FDA-approved or cleared tests available, and other criteria are met, FDA can make tests available under an emergency access mechanism called an Emergency Use Authorization (EUA). The EUA for this test is supported by the [place] of Health and Human Service's (HHS's) declaration [...] SARS-CoV-2. Performed By: #### C VDTBH #### [facility] [address] [place] [id number] [address] Tisha Carr ER URINE PROFILEon 2 Bilirubin Ql (U) MODERATE Abnormal NEGATIVE [facility] Comment on above: Performed By: #### E RUR, UMICRO, PREGU #### [facility] [address] [place] [address] Dr. Tisha Carr Clarity (U) CLEAR Normal CLEAR [facility] Comment on above: Performed By: #### E RUR, UMICRO, PREGU #### [facility] [address] [address] [address] Tisha Carr Color (U) DK. YELLOW Normal YELLOW [facility] Comment on above: Performed By: #### E RUR, UMICRO, PREGU #### [facility] [address] [address] [address] Tisha QUEZADA A micrscopic examina tion will be performed if indicated. Normal [facility] Comment on above: Performed By: #### E RUR, UMICRO, PREGU #### [facility] [address] [place] [address] Dr. iTsha Carr Glucose Ql (U) Negative Normal NEGATIVE [facility] Comment on above: Performed By: #### E RUR, UMICRO, PREGU #### [facility] [address] [place] [address] Dr. Tisha Carr Hemoglobin Ql (U) Negative Normal NEGATIVE [facility] Comment on above: Performed By: #### E RUR, UMICRO, PREGU #### [facility] [address] [address] [address] Tisha Carr Ketones Ql (U) >=80 Abnormal NEGATIVE [facility] Comment on above: Performed By: #### E RUR, UMICRO, PREGU #### [facility] [address] [address] [address] Tisha Carr LEUKOCYTES TRACE Abnormal NEGATIVE [facility] Comment on above: Performed By: #### E RUR, UMICRO, PREGU #### [facility] [address] [place] [address] Dr. Tisha Carr Nitrite Ql (U) Negative Normal NEGATIVE [facility] Comment on above: Performed By: #### E RUR, UMICRO, PREGU #### [facility] [address] [place] [address] Dr. Tisha Carr pH (U) 6.0 [pH] Normal 5-9 [facility] Comment on above: Performed By: #### YULY BRYANT, PREGU #### [facility] [address] [place] [address] Dr. Tisha Carr Protein (U) [Mass/Vol] 100 mg/dL Abnormal NEGATIVE/ TRACE [facility] Comment on above: Performed By: #### YULY BRYANT, PREGU #### [facility] [address] [place] [address] Dr. Tisha Carr SPEC GRAVITY 1.025 Normal 1.005-<=1.025 [facility] Comment on above: Performed By: #### YULY BRYANT, PREGU #### [facility] [address] [place] [address] Dr. Tisha Carr UR MICRO IND INDICATED Normal [facility] Comment on above: Performed By: #### YULY BRYANT, PREGU #### [facility] [address] [place] [address] Dr. Tisha Carr Urobilinogen Qn (U) 1.0 {Alma'U}/dL Normal 0.2 - 1.0 [facility] Comment on above: Performed By: #### YULY BRYANT PREGU #### [facility] [address] [place] [address] Dr. Tisha Carr INFLUENZA A AND B AGon 01-06 INFLUANEGH SEE BELOW Normal [facility] Comment on above: Result Comment: Nega tive for Flu A protein angiten. Infection due to Flu A cannot be ruled out. Flu A angiten in the sample may be below the detection limit of the test. Performed By: #### U RCX #### [facility] [address] [place] [address] Dr. Tisha Carr INFLUBNEGH SEE BELOW Normal [facility] Comment on above: Result Comment: Nega tive for Flu B protein antigen. Infection due to Flu B cannot be ruled out. Flu B antigen in the sample may be below the detection limit of the test. Performed By: #### U RCX #### [facility] [address] [place] [address] Dr. Tisha Carr INFLUENZA A AG Negative Normal NEGATIVE SEE COMMENT [facility] Comment on above: Performed By: #### U RCX #### [facility] [address] [place] [address] Dr. Tisha Carr INFLUENZA B AG Negative Normal NEGATIVE SEE COMMENT [facility] Comment on above: Performed By: #### U RCX #### [facility] [address] [place] [address] Dr. Tisha Carr INTERNAL CONTROLS Within Normal Limits Normal Wi thin Normal Limits [facility] Comment on above: Performed By: #### U RCX #### [facility] [address] [place] [address] Dr. Tsiha Carr URon 01-06-2022 , QUAL Negative Normal NEGATIVE [facility] Comment on above: Performed By: #### E RUR, UMICRO, PREGU #### [facility] [address] [place] [address] Dr. Tisha Carr URINE MICROSCOPIC ONLYon BACTERIA SMALL Abnormal NONE SEEN [facility] Comment on above: Performed By: #### U RCX #### [facility] [address] [place] [address] Dr. Tisha Carr Bacteria identified Cx Nom (U) INDICATED Normal [facility] Comment on above: Performed By: #### U RCX #### [facility] [address] [place] [address] Dr. Tisha Carr CAST NONE SEEN Normal NONE SEEN [facility] Comment on above: Performed By: #### U RCX #### [facility] [address] [place] [address] Dr. Tisha Carr Crystals LM Nom (Urine sed) NONE SEEN Normal NONE SEEN [facility] Comment on above: Performed By: #### U RCX #### [facility] [address] [place] [address] Dr. Tisha Carr Epithelial cells LM Ql (Urine sed) MANY Abnormal NONE SEEN /RARE [facility] Comment on above: Performed By: #### U RCX #### [facility] [address] [place] [address] Dr. Tisha Carr MUCOUS LARGE Abnormal NONE SEEN [facility] Comment on above: Performed By: #### U RCX #### [facility] [address] [place] [address] Dr. Tisha Carr RBC NONE SEEN Abnormal 0-2 [facility] Comment on above: Performed By: #### U RCX #### [facility] [address] [place] [address] Dr. Tisha Carr WBC 5-10 Abnormal NONE SEEN [facility] Comment on above: Performed By: #### U RCX #### [facility] [address] [place] [address] Dr. Tisha Carr Vital Signs Date Time Vital Sign Value Performing Clinician Faci lity 09-22-2023 16:01-0500 Body weight 89.09 kg Belkis Jessica DO Work Phone: [facility] 09-22-2023 16:01-0500 Diastolic blood pressure 70 mm[Hg] Belkis Jessica DO Work Phone: [facility] 09-22-2023 16:01-0500 Systolic blood pressure 120 mm[Hg] Belkis Jessica DO Work Phone: [facility] Encounters Encounter Date Encounter Type Care Provider Facility Start: 12-22-2023 End: 12-22-2023 ambulatory BELKIS JESSICA Not Available Start: 12-02-2023 End: 12-02-2023 ambulatory EBLKIS JESSICA Not Available Start: 11-17-2023 End: 11-17-2023 [...] PM EST Routine [facility] [address] [facility] [address] Belkis Lopez, [address] [place] [address] [facility] Start: 09-22-2023 End: 09-22-2024 Alpha fetoprotein, maternal Alpha fetoprotein, maternal Lab Routine Second trimester Need for maternal serum alpha-protein (MSAFP) screening Expected: 09/22/2023 (Approximate), Expires: 09/22/2024 [facility] Comment on above: Expected: 09/22/2023 (Approximate), Expires: 09/22/2024 Start: 09-22-2023 End: 09-22-2024 US for US OB ANATOMY SINGLE W US OB CERVICAL LENGTH Imaging Routine Screening, , for anatomic survey Expected: 09/22/2023 (Approximate), Expires: 09/22/2024 [facility] Comment on above: Expected: 09/22/2023 (Approximate), Expires: 09/22/2024 CHLAMYDIA TRACHOMATI S (GENITO/STI) CHLAMYDIA TRACHOMATIS (GENITO/STI) Lab Routine Exposure to STD Ordered: 09/22/2023 [facility] Comment on above: Ordered: 09/22/2023 Cytology Cervical or vaginal smear or scraping study Pap Smear Pathology and Cytology Routine Well woman exam with routine gynecological exam Ordered: 09/22/2023 [facility] Comment on above: Ordered: 09/22/2023 Neisseria gonorrhoea e DNA [Presence] in Unspecified specimen by OC with probe detection Neisseria gonorrhea DNA probe, direct Lab Routine Exposure to STD Ordered: 09/22/2023 [facility] Comment on above: Ordered: 09/22/2023 SURESWAB(R) ADVANCED VAGINITIS PLUS, TMA SURESWAB(R) ADVANCED VAGINITIS PLUS, TMA Pathology and Cytology Routine Exposure to STD Ordered: 09/22/2023 [facility] Work Phone: Comment on above: Ordered: 09/22/2023 Payers Date Payer Category Payer Medicaid [employer] [place] [employer] [id number] 2021-Present [address] [place] [address] [id number] 2000 Unknown [id number] 2000 Unknown [id number] [id number] 2000 Unknown [id number] [id number] 2000 Unknown [id number] [id number] 2000 Unknown [id number] [id number] 2000 Unknown [id number] [id number] 2000 Unknown [id number] [id number] 2000 Unknown [id number] 2.16.840.1.631206.3.579.2.9 2000 Unknown [id number] 2.16.840.1.136773.3.579.2.9 2000 Unknown [id number] 2.16.840.1.775336.3.579.2.9 2000 Unknown [id number] [id number] 2000 Unknown [id number] [id number] 1959 Unknown [id number] Social History Date Type Detail Facility Tobacco smoking stat [facility] Tobacco smoking consumption unknown [facility] Start: 05-22-2023 [facility] Start: [facility] Sex Assigned At Female [facility] Start: 07-03-2023 Gender identity Identifies as female gender (finding) [facility] Sexual orientation Not on file [facility] History of Present illness Narrative 09-22-2023 Nora Riggs, BURNISHER - 09/22/2023 3:20 PM EST Note Date [...] Problems Past Medical History: Diagnosis Date Asthma ([facility]) No family history on file. Social History [...] nursing note reviewed. Exam conducted with a clerical investigator present. Vitals: There is no height or [...] DATE CREATED AUTHOR AUTHOR'S ORGANIZ ATION 12/23/2023 [facility] EPIC Reason for Visit (unrecogniz ed [...] BE BASED ON THE PRIMARY CLINICAL RECORDS. [employer] provides no warranty or guarantee of the accuracy or completeness of information in this document.
--- NOTE | 2024-01-03 11:00 | US_ITS ---
[address] [address] Patient Name: FLORENCIA NEELY MRN: [id number] date: 2000 Sex: F Assigned Patient Location: US Current Patient Location: US Accession/Order Number: [id number] Exam Date: 01/03/2024 11:00 Report Date: 01/05/2024 08:56 At the request of: BELKIS BRAND Procedure: US OB BPP w non-stress EXAMINATION: US OB BPP w non-stress HISTORY: INSULIN CONTROLLED GESTATIONAL DIABETIC COMPARISON: No relevant comparison available. TECHNIQUE: Ultrasound biophysical profile was performed in the radiology department. FINDINGS: BREATHING MOVEMENTS: 0.0 GROSS BODY MOVEMENTS: 2.0 TONE: 2.0 QUALITATIVE AMNIOTIC FLUID VOLUME: 2.0 PRESENTATION: CEPHALIC HEART RATE: 127.4 bpm H.B./min AMNIOTIC FLUID VOLUME: 20.6 cm cm GESTATIONAL AGE: 34 weeks 2 days CONCLUSION: Total biophysical profile score: 6.0 Electronically authenticated by: LOUISE MOHAMUD Date: 01/05/2024 08:56
[2024-01-03 11:46] VITALS: BP 119/86; PULSE 68
== END 2024-01-03 12:20 | disposition home or self-care (01) ==
LOC: US 05:47 → FBC 10:55
PROVIDERS: PCP Nurse Practitioner Family; Visit Provider Obstetrics & Gynecology
DX: O24.414 Gestational diabetes mellitus in pregnancy, insulin controlled (principal); Z3A.34 34 weeks gestation of pregnancy
CPT/HCPCS: 76818

== ENCOUNTER 2024-01-07 10:07 | Outpatient (OUT) | payer OTHER, SELFPAY ==
--- NOTE | 2024-01-07 | US_ITS ---
[address] [address] Patient Name: FLORENCIA NEELY MRN: [id number] date: 2000 Sex: F Assigned Patient Location: [facility] Current Patient Location: [facility] Accession/Order Number: [id number] Exam Date: 01/07/2024 10:20 Report Date: 01/07/2024 11:29 At the request of: BELKIS BRAND Procedure: US OB BPP w non-stress EXAMINATION: US OB BPP w non-stress HISTORY: REPEAT BPP 01/30 COMPARISON: No relevant comparison available. TECHNIQUE: Ultrasound biophysical profile was performed in the radiology department. FINDINGS: BREATHING MOVEMENTS: 0.0 GROSS BODY MOVEMENTS: 2.0 TONE: 2.0 QUALITATIVE AMNIOTIC FLUID VOLUME: 2.0 PRESENTATION: CEPHALIC HEART RATE: 133.0 bpm H.B./min AMNIOTIC FLUID VOLUME: 15.4 cm cm GESTATIONAL AGE: 34 weeks 6 days CONCLUSION: Total biophysical profile score: 6.0 Electronically authenticated by: LOIUSE MOHAMUD Date: 01/07/2024 11:29
--- OUTSIDE RECORDS SUMMARY | 2024-01-07 10:29 | XMS_ITS | CCD ---
Author Organization [facility] Care Team Providers Care Corporate Events Director Name Role Phone JOSE ., LITA Admitting [...] (1 source) Ibuprofen Drug Allergy 01-15-2016 [facility] Repository (2 sources) Ibuprofen Drug Allergy [...] GDLNon AGE GDLN ACOG TESTING Note . [facility] Comment on above: TESTS RESULT FLAG UN ITS REF RANGE LAB Clinician Provided Cytology Information Source.............Cervix Other.............. No. of containers..01 ThinPrep Vial Age Algo ACOG Bina... 21- 01 FLAG LEGEND: L-Low Normal,H-High Normal,LL-Alert Low,HH-Alert High <-Panic Low,>-Panic High,A-Abnormal,AA-Critical Abnormal Performed at: 01 =G [facility] [address] Lali Holloway MD, IGP, RFX APTIMA HPV ASCU Note . [facility] Comment on above: TESTS RESULT FLAG U NITS REF RANGE LAB DIAGNOSIS: 02 NEGATIVE FOR INTRAEPITHELIAL LESION OR MALIGNANCY. Specimen adequacy: 02 Satisfactory for evaluation. No endocervical component is identified. An endocervical component is not commonly seen in the patient. Performed by: 02 Kieran Pickering, Electric Trucker ([facility]) . 02 Note: Note 02 The [...] Low,>-Panic High,A-Abnormal,AA-Critical Abnormal Performed at: [address] [facility] [address] [place] [address] Lali Holloway MD, Performed at: =G - [facility] [address], [place] [id number] Pourer [employer] Ladle: Lali Holloway MD, Phone: [phone] Performed at: [facility] [id number] Pourer [employer]: Lali Holloway MD, Phone: [phone] [facility] Urinalysis macro (dipstick) panel (U)on 09-22-2023 Bilirubin, UA Negative Negative - 4(70) +++ mg/dL [facility] Blood, UA Negative Negative - 50 Flash/mcL [facility] Clarity, [facility]A Clear [facility] Color, UA Yellow [facility] Glucose, UA Negative Negative - 1999(110) ++++ mg/dL [facility] Interpretation and review of laboratory results Abnormal [facility] Ketones, UA Positive Negative - 160(16) ++++ mg/dL [facility] Leukocytes, UA Negative Negative - 500+++ Taylor/mcL [facility] Nitrite, UA Negative Negative - Positive [facility] pH, UA 5.5 5 - 9 [facility] Protein, UA Negative Negative - 1999(20) ++++ mg/dL [facility] Spec Grav, UA 1.020 1 - 1.03 [facility] Urobilinogen, UA 0.2 0.2 - 12 mg/dL Pending sale to [facility] COMPLIANCE DRUG SCREENon PDF . Normal [facility] Comment on above: Performed By: #### U RCX #### [facility] [address] [address] [address] Tisha Carr Summary FINAL Normal [facility] Comment on above: Result Comment: = TOXASSURE [...] test is not intended to distinguish between [id number], the predominant form of THC in most herbal or marijuana-based products, and [id number]. Methylphenidate PRESENT UNEXPECTED Ritalinic Acid PRESENT UNEXPECTED [...] = Performed By: #### U RCX #### [facility] [address] [address] [address] Tisha Carr URIC ACID RAND URINEon 10-31 Uric Acid, Urine 67.3 mg/dL Normal Not Estab. [facility] Comment on above: Performed By: #### U RCX #### [facility] [address] [address] [address] Tisha Carr DRUG SCREEN RAPID (URINE)on 10-30-2022 AMP Negative Normal NEGATIVE [facility] Comment on above: Performed By: #### U RCX #### [facility] [address] [address] [address] Tisha Carr BAR Negative Normal NEGATIVE [facility] Comment on above: Performed By: #### U RCX #### [facility] [address] [place] [address] Dr. Tisha Carr BUP Negative Normal NEGATIVE [facility] Comment on above: Performed By: #### U RCX #### [facility] [address] [place] [address] Dr. Tisha Carr BZO Negative Normal NEGATIVE [facility] Comment on above: Performed By: #### U RCX #### [facility] [address] [address] [address] Tisha Carr SOCRATES Negative Normal NEGATIVE [facility] Comment on above: Performed By: #### U RCX #### [facility] [address] [place] [address] Dr. Tisha Carr CUT-OFFS SEE BELOW Normal [facility] Comment on above: Result Comment: AMP [...] ng/mL Performed By: #### U RCX #### [facility] [address] [place] [address] Dr. Tisha Carr DRUG CUT HEADER DRUG CLASS TEST SYST EM CUT-OFF CONCENTRATIONS ARE FOLLOWS: Normal [facility] Comment on above: Performed By: #### U RCX #### [facility] [address] [place] [address] Dr. Tisha Carr mAMP Negative Normal NEGATIVE [facility] Comment on above: Performed By: #### U RCX #### [facility] [address] [address] [address] Tisha Carr MTD Negative Normal NEGATIVE [facility] Comment on above: Performed By: #### U RCX #### [facility] [address] [place] [address] Dr. Tisha Carr OPI Negative Normal NEGATIVE [facility] Comment on above: Performed By: #### U RCX #### [facility] [address] [place] [address] Dr. Tisha Carr OXY Negative Normal NEGATIVE [facility] Comment on above: Performed By: #### U RCX #### [facility] [address] [place] [address] Dr. Tisha Carr PCP Negative Normal NEGATIVE [facility] Comment on above: Performed By: #### U RCX #### [facility] [address] [place] [address] Dr. Tisha Carr PPX Negative Normal NEGATIVE [facility] Comment on above: Performed By: #### U RCX #### [facility] [address] [place] [address] Dr. Tisha Carr TCA Negative Normal NEGATIVE [facility] Comment on above: Performed By: #### U RCX #### [facility] [address] [place] [address] Dr. Tisha Carr THC Positive Abnormal NEGATIVE [facility] Comment on above: Performed By: #### U RCX #### [facility] [address] [place] [address] Dr. Tisha Carr CBC AUTO DIFFon 06-21-2022 BASO # 0.0 103/ul Normal 0.0-0.1 [facility] Comment on above: Performed By: #### U RCX #### [facility] [address] [place] [address] Dr. Tisha Carr Basophils/100 WBC (Bld) 0.2 % Normal 0.2-2.0 [facility] Comment on above: Performed By: #### U RCX #### [facility] [address] [place] [address] Dr. Tisha Carr EO # 0.0 103/ul Normal 0.0-0.7 [facility] Comment on above: Performed By: #### U RCX #### [facility] [address] [place] [address] Dr. Tisha Carr Eosinophils/100 WBC (Bld) 0.2 % Critically low 0.9-7.0 [facility] Comment on above: Performed By: #### U RCX #### [facility] [address] [place] [address] Dr. Tisha Carr Erythrocyte distribution width (RBC) [Ratio] 12.3 % Normal 11.0-15.0 [facility] Comment on above: Performed By: #### U RCX #### [facility] [address] [place] [address] Dr. Tisha Carr Hematocrit (Bld) [Volume fraction] 43.1 % Normal 36.0-48.0 [facility] Comment on above: Performed By: #### U RCX #### [facility] [address] [place] [address] Dr. Tisha Carr Hemoglobin (Bld) [Mass/Vol] 15.1 g/dL Normal 12.0-16.0 [facility] Comment on above: Performed By: #### U RCX #### [facility] [address] [place] [address] Dr. Tisha Carr IG # 0.06 10e3/ul Critically high 0.00-0.03 [facility] Comment on above: Performed By: #### U RCX #### [facility] [address] [place] [address] Dr. Tisha Carr IG % 0.5 % Normal 0.0-0.5 [facility] Comment on above: Performed By: #### U RCX #### [facility] [address] [place] [address] Dr. Tisha Carr LYMPH # 1.0 103/ul Critically low 1.2-3.8 [facility] Comment on above: Performed By: #### U RCX #### [facility] [address] [place] [address] Dr. Tisha Carr Lymphocytes/100 WBC (Bld) 8.2 % Critically low 20.5-60.0 [facility] Comment on above: Performed By: #### U RCX #### [facility] [address] [place] [address] Dr. Tisha Carr MANUAL DIFF REQ NO Normal [facility] Comment on above: Performed By: #### U RCX #### [facility] [address] [place] [address] Dr. Tisha Carr MCH (RBC) [Entitic mass] 30.3 pg Normal 26.7-34.0 [facility] Comment on above: Performed By: #### U RCX #### [facility] [address] [place] [address] Dr. Tisha Carr MCHC (RBC) [Mass/Vol] 35.0 g/dL Normal 29.9-35.2 [facility] Comment on above: Performed By: #### U RCX #### [facility] [address] [place] [address] Dr. Tisha Carr MCV (RBC) [Entitic vol] 86.4 fL Normal 81.0-99.0 [facility] Comment on above: Performed By: #### U RCX #### [facility] [address] [place] [address] Dr. Tisha Carr MONO # 0.8 103/ul Normal 0.3-0.8 [facility] Comment on above: Performed By: #### U RCX #### [facility] [address] [place] [address] Dr. Tisha Carr Monocytes/100 WBC (Bld) 6.0 % Normal 1.7-12.0 [facility] Comment on above: Performed By: #### U RCX #### [facility] [address] [address] [address] Tisha Carr NEUT # 10.8 103/ul Critically high 1.4-6.5 [facility] Comment on above: Performed By: #### U RCX #### [facility] [address] [address] [address] Tisha Carr Neutrophils/100 WBC (Bld) 84.9 % Critically high 43.0-75.0 [facility] Comment on above: Performed By: #### U RCX #### [facility] [address] [place] [address] Dr. Tisha Carr Platelet mean volume (Bld) [Entitic vol] 10.8 fL Normal 9.5-13.5 [facility] Comment on above: Performed By: #### U RCX #### [facility] [address] [place] [address] Dr. Tisha Carr PLT 237 103/ul Normal 150-450 [facility] Comment on above: Performed By: #### U RCX #### [facility] [address] [place] [address] Dr. Tisha Carr RBC 4.99 106/ul Normal 4.20-5.40 [facility] Comment on above: Performed By: #### U RCX #### [facility] [address] [place] [address] Dr. Tisha Carr WBC 12.7 103/ul Critically high 4.0-11.0 [facility] Comment on above: Performed By: #### U RCX #### [facility] [address] [place] [address] Dr. Tisha Carr CRPon 06-21-2022 CRP 10.0 mg/dL Critically high <=1.0 [facility] Comment on above: Performed By: #### C RP, CMP, LIPA #### [facility] [address] [place] [address] Dr. Tisha FRANCO URINE PROFILEon 2 Bilirubin Ql (U) SMALL Abnormal NEGATIVE [facility] Comment on above: Performed By: #### YULY BRYANT, PREGU #### [facility] [address] [place] [address] Dr. Tisha Carr Clarity (U) CLEAR Normal CLEAR [facility] Comment on above: Performed By: #### YULY BRYANT, PREGU #### [facility] [address] [address] [address] Tisha Carr Color (U) YELLOW Normal YELLOW [facility] Comment on above: Performed By: #### YULY BRYANT, PREGU #### [facility] [address] [place] [address] Dr. Tisha QUEZADA A micrscopic examina tion will be performed if indicated. Normal [facility] Comment on above: Performed By: #### LEIGH BRYANTICRO, PREGU #### [facility] [address] [place] [address] Dr. Tisha Carr Glucose Ql (U) Negative Normal NEGATIVE [facility] Comment on above: Performed By: #### YULY BRYANT, PREGU #### [facility] [address] [place] [address] Dr. Tisha Carr Hemoglobin Ql (U) MODERATE Abnormal NEGATIVE [facility] Comment on above: Performed By: #### NHAN BRYANTRO, PREGU #### [facility] [address] [address] [address] Tisha Carr Ketones Ql (U) 80 mg/dl Abnormal NEGATIVE [facility] Comment on above: Performed By: #### Sofi MEEKRLEIGHICELLE, PREGU #### [facility] [address] [place] [address] Dr. Tisha Carr LEUKOCYTES Negative Normal NEGATIVE [facility] Comment on above: Performed By: #### Sofi RUR UMICRO, PREGU #### [facility] [address] [place] [address] Dr. Tisha Carr Nitrite Ql (U) Negative Normal NEGATIVE [facility] Comment on above: Performed By: #### YULY BRYANT PREGU #### [facility] [address] [place] [address] Dr. Tisha Carr pH (U) 6.0 [pH] Normal 5-9 [facility] Comment on above: Performed By: #### YULY BRYANT PREGU #### [facility] [address] [place] [address] Dr. Tisha Carr SPEC GRAVITY 1.025 Normal 1.005-<=1.025 [facility] Comment on above: Performed By: #### YULY BRYANT PREGU #### [facility] [address] [place] [address] Dr. Tisha Carr UA PROTEIN TRACE Normal NEGATIVE/ TRACE [facility] Comment on above: Performed By: #### YULY BRYANT PREGU #### [facility] [address] [place] [address] Dr. Tisha Carr UR MICRO IND INDICATED Normal [facility] Comment on above: Performed By: #### YULY BRYANT PREGU #### [facility] [address] [place] [address] Dr. Tisha Carr Urobilinogen Qn (U) 1.0 {Alma'U}/dL Normal 0.2 - 1.0 [facility] Comment on above: Performed By: #### YULY BRYANT PREGU #### [facility] [address] [place] [address] Dr. Tisha Carr LACTATE/LACTIC ACIDon 2021 Lactate [Moles/Vol] 1.0 mmol/L Normal 0.4-1.9 [facility] Comment on above: Performed By: #### U RCX #### [facility] [address] [place] [address] Dr. Tisha Carr LIPASEon 06-21-2022 Lipase [Catalytic activity/Vol] 41.0 U/L Critically low 73.0-393.0 [facility] Comment on above: Performed By: #### C RP, CMP, LIPA #### [facility] [address] [address] [address] Tisha Carr URon 06-21-2022 , QUAL Negative Normal NEGATIVE [facility] Comment on above: Performed By: #### E RUR, LEIGHICRO, PREGU #### [facility] [address] [place] [address] Dr. Tisha Carr PROF 14(COMP METB)on 022 Albumin [Mass/Vol] 4.0 g/dL Normal 3.4-5.0 [facility] Comment on above: Performed By: #### C RP, CMP, LIPA #### [facility] [address] [place] [address] Dr. Tisha Carr Albumin/Globulin [Mass ratio] 1.0 {ratio} Normal [facility] Comment on above: Performed By: #### C RP, CMP, LIPA #### [facility] [address] [address] [address] Tisha Carr ALP [Catalytic activity/Vol] 74 U/L Normal 46-116 [facility] Comment on above: Performed By: #### C RP, CMP, LIPA #### [facility] [address] [place] [address] Dr. Tisha Carr ALT [Catalytic activity/Vol] 33 U/L Normal 14-59 [facility] Comment on above: Performed By: #### C RP, CMP, LIPA #### [facility] [address] [address] [address] Tisha Carr Anion gap [Moles/Vol] 15.8 mmol/L Normal [facility] Comment on above: Performed By: #### C RP, CMP, LIPA #### [facility] [address] [place] [address] Dr. Tisha Carr AST [Catalytic activity/Vol] 17 U/L Normal 15-37 [facility] Comment on above: Performed By: #### C RP, CMP, LIPA #### [facility] [address] [place] [address] Dr. Tisha Carr Bilirubin [Mass/Vol] 1.3 mg/dL Critically high 0.2-1.0 [facility] Comment on above: Performed By: #### C RP, CMP, LIPA #### [facility] [address] [address] [address] Tisha Carr Calcium [Mass/Vol] 9.2 mg/dL Normal 8.5-10.1 [facility] Comment on above: Performed By: #### C RP, CMP, LIPA #### [facility] [address] [place] [address] Dr. Tisha Carr Chloride [Moles/Vol] 102 mmol/L Normal 98-107 [facility] Comment on above: Performed By: #### C RP, CMP, LIPA #### [facility] [address] [place] [address] Dr. Tisha Carr CO2 [Moles/Vol] 22.7 mmol/L Normal 21.0-32.0 [facility] Comment on above: Performed By: #### C RP, CMP, LIPA #### [facility] [address] [place] [address] Dr. Tisha Carr Creatinine [Mass/Vol] 0.70 mg/dL Normal 0.55-1.02 [facility] Comment on above: Performed By: #### C RP, CMP, LIPA #### [facility] [address] [place] [address] Dr. Tisha Carr EGFR-AF SAO TOMEAN >60 Normal >=60 [facility] Comment on above: Performed By: #### C RP, CMP, LIPA #### [facility] [address] [place] [address] Dr. Tisha Carr EGFR-NON AF SAO TOMEAN >60 Normal >=60 [facility] Comment on above: Performed By: #### C RP, CMP, LIPA #### [facility] [address] [place] [address] Dr. Tisha Carr Globulin (S) [Mass/Vol] 4.2 g/dL Normal [facility] Comment on above: Performed By: #### C RP, CMP, LIPA #### [facility] [address] [address] [address] Tisha Carr Glucose [Mass/Vol] 93 mg/dL Normal 74-[address] [facility] Comment on above: Performed By: #### C RP, CMP, LIPA #### [facility] [address] [address] [address] Tisha Carr Potassium [Moles/Vol] 3.5 mmol/L Normal 3.5-5.1 [facility] Comment on above: Performed By: #### C RP, CMP, LIPA #### [facility] [address] [address] [address] Tisha Carr Protein [Mass/Vol] 8.2 g/dL Normal 6.4-8.[address] [facility] Comment on above: Performed By: #### C RP, CMP, LIPA #### [facility] [address] [address] [address] Tisha Carr Sodium [Moles/Vol] 137 mmol/L Normal 136-[address] [facility] Comment on above: Performed By: #### C RP, CMP, LIPA #### [facility] [address] [address] [address] Tisha Carr Urea nitrogen [Mass/Vol] 16.0 mg/dL Normal 7.0-18.0 [facility] Comment on above: Performed By: #### C RP, CMP, LIPA #### [facility] [address] [address] [address] Tisha Carr Urea nitrogen/Creatinin e [Mass ratio] 22.9 mg/mg Normal [facility] Comment on above: Performed By: #### C RP, CMP, LIPA #### [facility] [address] [address] [address] Tisha Carr URINE MICROSCOPIC ONLYon BACTERIA TRACE Abnormal NONE SEEN [facility] Comment on above: Performed By: #### E YULY CUMMINS PREGU #### [facility] [address] [address] [address] Tisha Carr Bacteria identified Cx Nom (U) NOT INDICATED Normal [facility] Comment on above: Performed By: #### E RUR, UMICRO, PREGU #### [facility] [address] [address] [address] Tisha Carr CAST NONE SEEN Normal NONE SEEN [facility] Comment on above: Performed By: #### E RUR, UMICRO, PREGU #### [facility] [address] [address] [address] Tisha Carr Crystals LM Nom (Urine sed) NONE SEEN Normal NONE SEEN [facility] Comment on above: Performed By: #### E RUR, UMICRO, PREGU #### [facility] [address] [address] [address] Tisha Carr Epithelial cells LM Ql (Urine sed) MODERATE Abnormal NONE SEEN /RARE [facility] Comment on above: Performed By: #### E RUR, UMICRO, PREGU #### [facility] [address] [address] [address] Tisha Carr MUCOUS MODERATE Abnormal NONE SEEN [facility] Comment on above: Performed By: #### Sofi RUR UMICRO, PREGU #### [facility] [address] [address] [address] Tisha Carr RBC 0-2 Normal 0-2 [facility] Comment on above: Performed By: #### Sofi MEEKR, LEIGHICRO, PREGU #### [facility] [address] [address] [address] Tisha Carr WBC 0-2 Abnormal NONE SEEN [facility] Comment on above: Performed By: #### Sofi MEEKR UMICRO, PREGU #### [facility] [address] [address] [address] Tisha Carr PAP ACOG PANEL 2: 21 to 29on 04-11-2022 . . Normal [facility] Comment on above: Performed By: #### U RCX #### [facility] [address] [address] [address] Tisha Carr Age Gdln ACOG Testing 21-29 Normal [facility] Comment on above: Performed By: #### U RCX #### [facility] [address] [place] [address] Dr. Tisha Carr DIAGNOSIS: Comment Normal [facility] Comment on above: Result Comment: NEGA TIVE FOR INTRAEPITHELIAL LESION OR MALIGNANCY. FUNGAL ORGANISMS MORPHOLOGICALLY CONSISTENT WITH SHEREE SPECIES ARE PRESENT. Performed By: #### U RCX #### [facility] [address] [place] [address] Dr. Tisha Carr Methodology: Comment Normal [facility] Comment on above: Result Comment: This liquid based ThinPrep(R) pap test was screened with the use of an image guided system. Performed By: #### U RCX #### [facility] [address] [place] [address] Dr. Tisha Carr Note: Comment Normal [facility] Comment on above: Result Comment: The Pap smear is a screening test designed to aid in the detection of premalignant and malignant conditions of the uterine cervix. It is not a diagnostic procedure and should not be used as the sole means of detecting cervical cancer. Both false-positive and false-negative reports do occur. . Performed By: #### U RCX #### [facility] [address] [place] [address] Dr. Tisha Carr Performed by: Comment Normal [facility] Comment on above: Result Comment: Caleb Schaeffer, Electric Trucker (ASCP) Performed By: #### U RCX #### [facility] [address] [place] [address] Dr. Tisha Carr Reflex Criteria: Comment Normal [facility] Comment on above: Result Comment: The HPV DNA reflex criteria were not met with this specimen result therefore, no HPV testing was performed. . Performed By: #### U RCX #### [facility] [address] [place] [address] Dr. Tisha Carr Specimen adequacy: Comment Normal [facility] Comment on above: Result Comment: Sati sfactory for evaluation. Endocervical and/or squamous metaplastic cells (endocervical component) are present. Performed By: #### U RCX #### [facility] [address] [place] [address] Dr. Tisha Carr CULTURE URINEon 01-08-2022 CULTURE [...] Trimethoprim/Sulfamethox azole <=20 S F Normal [facility] Comment on above: Performed By: #### U RCX #### [facility] [address] [place] [address] Dr. Tisha Carr Covid-19 PCR (CVDTB)on 12-23 SARS-CoV-2 (COVID-19) RNA OC+probe Ql (Unsp spec) Not detected Normal NOT DETECTED [facility] Comment on above: Result Comment: This test is not yet approved or cleared by the [place] FDA. When there are no FDA-approved or cleared tests available, and other criteria are met, FDA can make tests available under an emergency access mechanism called an Emergency Use Authorization (EUA). The EUA for this test is supported by the [employer] of Health and Human Service's (HHS's) declaration [...] SARS-CoV-2. Performed By: #### C VDTBH #### [facility] [address] [place] [address] Dr. Tisha Carr ER URINE PROFILEon 2 Bilirubin Ql (U) MODERATE Abnormal NEGATIVE [facility] Comment on above: Performed By: #### E RUR, UMICRO, PREGU #### [facility] [address] [address] [address] Tisha Carr Clarity (U) CLEAR Normal CLEAR [facility] Comment on above: Performed By: #### E RUR, UMICRO, PREGU #### [facility] [address] [address] [address] Tisha Carr Color (U) DK. YELLOW Normal YELLOW [facility] Comment on above: Performed By: #### E RUR, UMICRO, PREGU #### [facility] [address] [address] [address] Tisha Carr ERUAHIsidra A micrscopic examina tion will be performed if indicated. Normal [facility] Comment on above: Performed By: #### E RUR, UMICRO, PREGU #### [facility] [address] [address] [address] Tisha Carr Glucose Ql (U) Negative Normal NEGATIVE [facility] Comment on above: Performed By: #### E RUR, UMICRO, PREGU #### [facility] [address] [address] [address] Tisha Carr Hemoglobin Ql (U) Negative Normal NEGATIVE [facility] Comment on above: Performed By: #### E RUR, UMICRO, PREGU #### [facility] [address] [address] [address] Tisha Carr Ketones Ql (U) >=80 Abnormal NEGATIVE [facility] Comment on above: Performed By: #### E RUR, UMICRO, PREGU #### [facility] [address] [address] [address] Tisha Carr LEUKOCYTES TRACE Abnormal NEGATIVE [facility] Comment on above: Performed By: #### E RUR, UMICRO, PREGU #### [facility] [address] [address] [address] Tisha Carr Nitrite Ql (U) Negative Normal NEGATIVE [facility] Comment on above: Performed By: #### YULY BRYANT PREGU #### [facility] [address] [place] [address] Dr. Tisha Carr pH (U) 6.0 [pH] Normal 5-9 [facility] Comment on above: Performed By: #### YULY BRYANT, PREGU #### [facility] [address] [place] [address] Dr. Tisha Carr Protein (U) [Mass/Vol] 100 mg/dL Abnormal NEGATIVE/ TRACE [facility] Comment on above: Performed By: #### YULY BRYANT PREGU #### [facility] [address] [place] [address] Dr. Tisha Carr SPEC GRAVITY 1.025 Normal 1.005-<=1.025 [facility] Comment on above: Performed By: #### YULY BRYANT PREGU #### [facility] [address] [place] [address] Dr. Tisha Carr UR MICRO IND INDICATED Normal [facility] Comment on above: Performed By: #### YULY BRYANT PREGU #### [facility] [address] [place] [address] Dr. Tisha Carr Urobilinogen Qn (U) 1.0 {Alma'U}/dL Normal 0.2 - 1.0 [facility] Comment on above: Performed By: #### YULY BRYANT PREGU #### [facility] [address] [place] [address] Dr. Tisha Carr INFLUENZA A AND B AGon 01-06 INFLUANEGH SEE BELOW Normal [facility] Comment on above: Result Comment: Nega tive for Flu A protein angiten. Infection due to Flu A cannot be ruled out. Flu A angiten in the sample may be below the detection limit of the test. Performed By: #### U RCX #### [facility] [address] [place] [address] Dr. Tisha Carr INFLUBNEGH SEE BELOW Normal [facility] Comment on above: Result Comment: Nega tive for Flu B protein antigen. Infection due to Flu B cannot be ruled out. Flu B antigen in the sample may be below the detection limit of the test. Performed By: #### U RCX #### [facility] [address] [place] [address] Dr. Tisha Carr INFLUENZA A AG Negative Normal NEGATIVE SEE COMMENT [facility] Comment on above: Performed By: #### U RCX #### [facility] [address] [address] [address] Tisha Carr INFLUENZA B AG Negative Normal NEGATIVE SEE COMMENT [facility] Comment on above: Performed By: #### U RCX #### [facility] [address] [place] [address] Dr. Tisha Carr INTERNAL CONTROLS Within Normal Limits Normal Wi thin Normal Limits [facility] Comment on above: Performed By: #### U RCX #### [facility] [address] [place] [address] Dr. Tisha Carr URon 01-06-2022 , QUAL Negative Normal NEGATIVE [facility] Comment on above: Performed By: #### E RUR, UMICRO, PREGU #### [facility] [address] [place] [address] Dr. Tisha Carr URINE MICROSCOPIC ONLYon BACTERIA SMALL Abnormal NONE SEEN [facility] Comment on above: Performed By: #### U RCX #### [facility] [address] [place] [address] Dr. Tisha Carr Bacteria identified Cx Nom (U) INDICATED Normal [facility] Comment on above: Performed By: #### U RCX #### [facility] [address] [place] [address] Dr. Tisha Carr CAST NONE SEEN Normal NONE SEEN [facility] Comment on above: Performed By: #### U RCX #### [facility] [address] [place] [address] Dr. Tisha Carr Crystals LM Nom (Urine sed) NONE SEEN Normal NONE SEEN [facility] Comment on above: Performed By: #### U RCX #### [facility] [address] [address] [address] Tisha Carr Epithelial cells LM Ql (Urine sed) MANY Abnormal NONE SEEN /RARE [facility] Comment on above: Performed By: #### U RCX #### [facility] [address] [address] [address] Tisha Carr MUCOUS LARGE Abnormal NONE SEEN [facility] Comment on above: Performed By: #### U RCX #### [facility] [address] [address] [address] Tisha Carr RBC NONE SEEN Abnormal 0-2 [facility] Comment on above: Performed By: #### U RCX #### [facility] [address] [address] [address] Tisha Carr WBC 5-10 Abnormal NONE SEEN [facility] Comment on above: Performed By: #### U RCX #### [facility] [address] [address] [address] Tisha Carr Vital Signs Date Time Vital Sign Value Performing Clinician Faci lity 09-22-2023 16:01-0500 Body weight 89.09 kg Belkis Jessica DO Work Phone: [facility] 09-22-2023 16:01-0500 Diastolic blood pressure 70 mm[Hg] Belkis Jessica DO Work Phone: [facility] 09-22-2023 16:01-0500 Systolic blood pressure 120 mm[Hg] Belkis Jessica DO Work Phone: [facility] Encounters Encounter Date Encounter Type Care Provider Facility Start: 2024 End: 2024 ambulatory BELKIS JESSICA Not Available Start: 12-22-2023 End: 12-22-2023 ambulatory BELKIS JESSICA Not Available Start: 12-02-2023 End: 12-02-2023 ambulatory BELKIS JESSICA Not Available Start: 11-17-2023 End: 11-17-2023 ambulatory BELKIS JESSICA Not Available Start: 10-20-2023 End: 10-20-2023 ambulatory BELKIS JESSICA Not Available Start: 09-22-2023 End: 09-22-2023 ambulatory BELKIS JESSICA Not Available Start: 09-22-2023 End: 09-22-2023 Patient encounter procedure Belkis Lopez DO Work Phone: [facility] Start: 09-22-2023 End: 09-22-2023 Periodic preventive med est patient 18-39 yrs Belkis Lopez DO Work Phone: [facility] Comment [...] dip stick/tabl et rgnt non-auto w/o micrscp Belkis Yateso DO Work Phone: Start: 09-22-2023 IGP,APTIMA HPV,AGE GDLN Belkis Lopez DO Work Phone: Plan of Treatment Date Care Activity Detail Author Start: 10-20-2023 End: 10-20-2023 Patient encounter procedure 10/20/2023 3:10 PM EST Routine [facility] [address] [place] [id number] Belkis Lopez, [address] [place] [address] [facility] Start: 09-22-2023 End: 09-22-2024 Alpha fetoprotein, maternal Alpha fetoprotein, maternal Lab Routine Second trimester Need for maternal serum alpha-protein (MSAFP) screening Expected: 09/22/2023 (Approximate), Expires: 09/22/2024 [facility] Comment on above: Expected: 09/22/2023 (Approximate), Expires: 09/22/2024 Start: 09-22-2023 End: 09-22-2024 US for US OB ANATOMY SINGLE W US OB CERVICAL LENGTH Imaging Routine Screening, , for anatomic survey Expected: 09/22/2023 (Approximate), Expires: 09/22/2024 [facility] Comment on above: Expected: 09/22/2023 (Approximate), Expires: 09/22/2024 CHLAMYDIA TRACHOMATI S (GENITO/STI) CHLAMYDIA TRACHOMATIS (GENITO/STI) Lab Routine Exposure to STD Ordered: 09/22/2023 [facility] Comment on above: Ordered: 09/22/2023 Cytology Cervical or vaginal smear or scraping study Pap Smear Pathology and Cytology Routine Well woman exam with routine gynecological exam Ordered: 09/22/2023 [facility] Comment on above: Ordered: 09/22/2023 Neisseria gonorrhoea e DNA [Presence] in Unspecified specimen by OC with probe detection Neisseria gonorrhea DNA probe, direct Lab Routine Exposure to STD Ordered: 09/22/2023 [facility] Comment on above: Ordered: 09/22/2023 SURESWAB(R) ADVANCED VAGINITIS PLUS, TMA SURESWAB(R) ADVANCED VAGINITIS PLUS, TMA Pathology and Cytology Routine Exposure to STD Ordered: 09/22/2023 [facility] Work Phone: Comment on above: Ordered: 09/22/2023 Payers Date Payer Category Payer Medicaid [employer] [place] [employer] [id number] 2021-Present [address] [place] [address] [id number] 2000 Unknown [id number] 2000 Unknown [id number] [id number] 2000 Unknown [id number] [id number] 2000 Unknown [id number] [id number] 2000 Unknown [id number] [id number] 2000 Unknown [id number] [id number] 2000 Unknown [id number] [id number] 2000 Unknown [id number] 2.16.840.1.456662.3.579.2.1259 2000 Unknown [id number] 2.16.840.1.318715.3.579.2.1259 2000 Unknown [id number] 2.16.840.1.043430.3.579.2.9 2000 Unknown [id number] 2.16.840.1.376531.3.579.2.1259 2000 Unknown [id number] 2.16.840.1.291348.3.579.2.9 2000 Unknown [id number] [id number] 1959 Unknown [id number] Social History Date Type Detail Facility Tobacco smoking stat [facility] Tobacco smoking consumption unknown [facility] Start: 05-22-2023 [facility] Start: 2000 Sex Assigned At Female [facility] Start: 07-03-2023 Gender identity Identifies as female gender (finding) [facility] Sexual orientation Not on file [facility] [...] Problems Past Medical History: Diagnosis Date Asthma ([facility] No family history on file. Social History [...] nursing note reviewed. Exam conducted with a magistrate assistant present. Vitals: There is no height or [...] pital DATE CREATED AUTHOR AUTHOR'S ORGANIZ ATION 01/06/2024 [facility] EPIC Reason for Visit (unrecogniz ed [...] BE BASED ON THE PRIMARY CLINICAL RECORDS. [employer] provides no warranty or guarantee of the accuracy or completeness of information in this document.
--- NOTE | 2024-01-07 10:52 | US_ITS ---
[address] [address] Patient Name: FLORENCIA NEELY MRN: [id number] date: 2000 Sex: F Assigned Patient Location: [facility] Current Patient Location: [facility] Accession/Order Number: [id number] Exam Date: 01/07/2024 11:15 Report Date: 01/07/2024 11:57 At the request of: BELKIS BRAND Procedure: US OB umbilical artery EXAMINATION: US OB umbilical artery HISTORY: Abnormal breathing COMPARISON: No relevant comparison available. TECHNIQUE: Duplex Doppler evaluation of the umbilical arteries. FINDINGS: Position: Cephalic presentation, longitudinal lie Heart rate: 130 bpm Proximal umbilical artery PSV/EDV: 120/37 cm/s. Resistive index 0.69. Ratio 3.3. Mid umbilical artery PSV/EDV: 102/39 cm/s. RI 0.61. Ratio 2.6 Distal umbilical artery PSV/EDV: 77/39 cm/s. RI 0.5. Ratio 2.0 Forward flow identified throughout diastole Clinical age: 34 weeks 6 days US/US OB umbilical artery IMPRESSION: Normal examination. Class 0 Umbilical Artery: Class 0 = Normal umbilical artery blood velocity Class I = increased RI or PI, but still forward flow in diastole Class II = Absent end diastolic flow (AEDF) Class III = Reversal of end diastolic flow (REDF) Resistive Index (RI)<1 Systolic/Diastolic ratio (S:D): An S:D ratio of 2-3 after 34 wks is normal Systolic/Diastolic ratio (S:D): Age 16: 3.01 for the 10th percentile, 4.25 for the 50th percentile, 6.07 for the 90th percentile Age 20: 3.16 for the 10th percentile, 4.04 for the 50th percentile, 5.24 for the 90th percentile Age 24: 2.70 for the 10th percentile, 3.50 for the 50th percentile, 4.75 for the 90th percentile Age 28: 2.41 for the 10th percentile, 3.02 for the 50th percentile, 3.97 for the 90th percentile Age 30: 2.43 for the 10th percentile, 3.04 for the 50th percentile, 3.80 for the 90th percentile Age 32: 2.27 for the 10th percentile, 2.73 for the 50th percentile, 3.57 for the 90th percentile Age 34: 2.08 for the 10th percentile, 2.52 for the 50th percentile, 3.41 for the 90th percentile Age 36: 1.96 for the 10th percentile, 2.35 for the 50th percentile, 3.15 for the 90th percentile Age 38: 1.89 for the 10th percentile, 2.24 for the 50th percentile, 3.10 for the 90th percentile Age 40: 1.88 for the 10th percentile, 2.22 for the 50th percentile, 2.68 for the 90th percentile Age 41: 1.93 for the 10th percentile, 2.21 for the 50th percentile, 2.55 for the 90th percentile Age 42: 1.91 for the 10th percentile, 2.51 for the 50th percentile, 3.21 for the 90th percentile Uteroplacental Artery: Resistive Index (RI): Normal=<0.55 High Resistance=Bilateral notches (after 26 wks) and RI>0.55. Unilateral notches (after 26 wks) and RI>0.65 Systolic/Diastolic ratio (S:D) = 2-3 is normal after 32 weeks. Electronically authenticated by: LOUISE MOHAMUD Date: 01/07/2024 11:57
[2024-01-07 10:56] VITALS: BP 140/78; PULSE 75
== END 2024-01-07 12:06 | disposition home or self-care (01) ==
LOC: FBCO 10:07 → FBC 10:08
PROVIDERS: PCP Nurse Practitioner Family; Visit Provider Obstetrics & Gynecology
DX: O24.419 Gestational diabetes mellitus in pregnancy, unspecified control (principal); Z3A.34 34 weeks gestation of pregnancy
CPT/HCPCS: 76818; 76820

== ENCOUNTER 2024-01-10 02:48 | Outpatient (OUT) | payer OTHER, SELFPAY ==
--- OUTSIDE RECORDS SUMMARY | 2024-01-10 02:50 | XMS_ITS | CCD ---
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 [facility] Comment on above: TESTS RESULT FLAG UN ITS REF RANGE LAB Clinician Provided Cytology Information Source.............Cervix Other.............. No. of containers..01 ThinPrep Vial Age Algo ACOG Bina... 21- 01 FLAG LEGEND: L-Low Normal,H-High Normal,LL-Alert Low,HH-Alert High <-Panic Low,>-Panic High,A-Abnormal,AA-Critical Abnormal Performed at: 01 =G [address] [id number] Lali Holloway MD, IGP, RFX APTIMA HPV ASCU Note . [facility] Comment on above: TESTS RESULT FLAG U NITS REF RANGE LAB DIAGNOSIS: 02 NEGATIVE FOR INTRAEPITHELIAL LESION OR MALIGNANCY. Specimen adequacy: 02 Satisfactory for evaluation. No endocervical component is identified. An endocervical component is not commonly seen in the patient. Performed by: 02 Kieran Pickering, Logistics And Planning Manager ([facility]) . 02 Note: Note 02 The [...] Low,>-Panic High,A-Abnormal,AA-Critical Abnormal Performed at: [address] [facility] [address] [place] [address] Lali Holloway MD, Performed at: =G - [facility] [address], [place] [id number] Personal Care Aid: Lali Holloway MD, Phone: [phone] Performed at: [facility] [id number] Personal Care Aid: Lali Holloway MD, Phone: [phone] [facility] Urinalysis macro (dipstick) panel (U)on 09-22-2023 Bilirubin, UA Negative Negative - 4(70) +++ mg/dL [facility] Blood, UA Negative Negative - 50 Flash/mcL [facility] Clarity, [facility] Clear [facility] Color, UA Yellow [facility] Glucose, UA Negative Negative - 1999(110) ++++ mg/dL [facility] Interpretation and review of laboratory results Abnormal [facility] Ketones, UA Positive Negative - 160(16) ++++ mg/dL [facility] Leukocytes, UA Negative Negative - 500+++ Taylor/mcL [facility] Nitrite, UA Negative Negative - Positive [facility] pH, UA 5.5 5 - 9 [facility] Protein, UA Negative Negative - 1999(20) ++++ mg/dL [facility] Spec Grav, UA 1.020 1 - 1.03 [facility] Urobilinogen, UA 0.2 0.2 - 12 mg/dL [facility] COMPLIANCE DRUG SCREENon PDF . Normal [facility] Comment on above: Performed By: #### U RCX #### [facility] [address] [address] [address] Tisha Carr Summary FINAL Normal [facility] Comment on above: Result Comment: = TOXASSURE [...] test is not intended to distinguish between [id number], the predominant form of THC in most herbal or marijuana-based products, and qbkfm-7-ahwdolrzazntmuohvcin. Methylphenidate PRESENT UNEXPECTED Ritalinic Acid PRESENT UNEXPECTED [...] = Performed By: #### U RCX #### [facility] [address] [address] [address] Tisha Carr URIC ACID RAND URINEon 10-31 Uric Acid, Urine 67.3 mg/dL Normal Not Estab. [facility] Comment on above: Performed By: #### U RCX #### [facility] [address] [address] [address] Tisha Carr DRUG SCREEN RAPID (URINE)on 10-30-2022 AMP Negative Normal NEGATIVE [facility] Comment on above: Performed By: #### U RCX #### [facility] [address] [address] [address] Tisha Carr BAR Negative Normal NEGATIVE [facility] Comment on above: Performed By: #### U RCX #### [facility] [address] [place] [address] Dr. Tisha Carr BUP Negative Normal NEGATIVE [facility] Comment on above: Performed By: #### U RCX #### [facility] [address] [place] [address] Dr. Tisha Carr BZO Negative Normal NEGATIVE [facility] Comment on above: Performed By: #### U RCX #### [facility] [address] [address] [address] Tisha Carr OSCRATES Negative Normal NEGATIVE [facility] Comment on above: Performed By: #### U RCX #### [facility] [address] [place] [address] Dr. Tisha Carr CUT-OFFS SEE BELOW Normal [facility] Comment on above: Result Comment: AMP (Amphetamine): 500ng/mL, BAR (Barbituates): 200 ng/mL, BZO (Benzodiazepines): 150 ng/mL, BUP (Buprenorphine): 10 ng/mL, SOCRATES (Cocaine): 150 ng/mL, mAMP (Methamphetamine): 500 ng/mL, MTD (Methadone): 200 ng/mL, OPI (Opiates): 100 ng/mL, OXY (Oxycodone): 100 ng/mL, PCP (Phencyclidine): 25 ng/mL, PPX (Propoxyphene): 300 ng/mL, THC (Cannabinoids): 50 ng/mL, TCA (Trycyclic Antidepressants): 300 ng/mL Performed By: #### U RCX #### [facility] [address] [place] [address] Dr. Tisha Carr DRUG CUT HEADER DRUG CLASS TEST SYST EM CUT-OFF CONCENTRATIONS ARE FOLLOWS: Normal [facility] Comment on above: Performed By: #### U RCX #### [facility] [address] [place] [address] Dr. Tisha Carr mAMP Negative Normal NEGATIVE [facility] Comment on above: Performed By: #### U RCX #### [facility] [address] [address] [address] Tisha Carr MTD Negative Normal NEGATIVE [facility] Comment on above: Performed By: #### U RCX #### [facility] [address] [place] [address] Dr. Tisha Carr OPI Negative Normal NEGATIVE [facility] Comment on above: Performed By: #### U RCX #### [facility] [address] [place] [address] Dr. Tisha Carr OXY Negative Normal NEGATIVE [facility] Comment on above: Performed By: #### U RCX #### [facility] [address] [place] [address] Dr. Tisha Carr PCP Negative Normal NEGATIVE [facility] Comment on above: Performed By: #### U RCX #### [facility] [address] [place] [address] Dr. Tisha Carr PPX Negative Normal NEGATIVE [facility] Comment on above: Performed By: #### U RCX #### [facility] [address] [place] [address] Dr. Tisha Carr TCA Negative Normal NEGATIVE [facility] Comment on above: Performed By: #### U RCX #### [facility] [address] [place] [address] Dr. Tisha Carr THC Positive Abnormal NEGATIVE [facility] Comment on above: Performed By: #### U RCX #### [facility] [address] [place] [address] Dr. Tisha Carr CBC AUTO DIFFon 06-21-2022 BASO # 0.0 103/ul Normal 0.0-0.1 [facility] Comment on above: Performed By: #### U RCX #### [facility] [address] [place] [address] Dr. Tisha Carr Basophils/100 WBC (Bld) 0.2 % Normal 0.2-2.0 [facility] Comment on above: Performed By: #### U RCX #### [facility] [address] [place] [address] Dr. Tisha Carr EO # 0.0 103/ul Normal 0.0-0.7 [facility] Comment on above: Performed By: #### U RCX #### [facility] [address] [place] [address] Dr. Tisha Carr Eosinophils/100 WBC (Bld) 0.2 % Critically low 0.9-7.0 [facility] Comment on above: Performed By: #### U RCX #### [facility] [address] [place] [address] Dr. Tisha Carr Erythrocyte distribution width (RBC) [Ratio] 12.3 % Normal 11.0-15.0 [facility] Comment on above: Performed By: #### U RCX #### [facility] [address] [place] [address] Dr. Tisha Carr Hematocrit (Bld) [Volume fraction] 43.1 % Normal 36.0-48.0 [facility] Comment on above: Performed By: #### U RCX #### [facility] [address] [place] [address] Dr. Tisha Carr Hemoglobin (Bld) [Mass/Vol] 15.1 g/dL Normal 12.0-16.0 [facility] Comment on above: Performed By: #### U RCX #### [facility] [address] [place] [address] Dr. Tisha Carr IG # 0.06 10e3/ul Critically high 0.00-0.03 [facility] Comment on above: Performed By: #### U RCX #### [facility] [address] [place] [address] Dr. Tisha Carr IG % 0.5 % Normal 0.0-0.5 [facility] Comment on above: Performed By: #### U RCX #### [facility] [address] [place] [address] Dr. Tisha Carr LYMPH # 1.0 103/ul Critically low 1.2-3.8 [facility] Comment on above: Performed By: #### U RCX #### [facility] [address] [place] [address] Dr. Tisha Carr Lymphocytes/100 WBC (Bld) 8.2 % Critically low 20.5-60.0 [facility] Comment on above: Performed By: #### U RCX #### [facility] [address] [place] [address] Dr. Tisha Carr MANUAL DIFF REQ NO Normal [facility] Comment on above: Performed By: #### U RCX #### [facility] [address] [place] [address] Dr. Tisha Carr MCH (RBC) [Entitic mass] 30.3 pg Normal 26.7-34.0 [facility] Comment on above: Performed By: #### U RCX #### [facility] [address] [place] [address] Dr. Tisha Carr MCHC (RBC) [Mass/Vol] 35.0 g/dL Normal 29.9-35.2 [facility] Comment on above: Performed By: #### U RCX #### [facility] [address] [place] [address] Dr. Tisha Carr MCV (RBC) [Entitic vol] 86.4 fL Normal 81.0-99.0 [facility] Comment on above: Performed By: #### U RCX #### [facility] [address] [place] [address] Dr. Tisha Carr MONO # 0.8 103/ul Normal 0.3-0.8 [facility] Comment on above: Performed By: #### U RCX #### [facility] [address] [place] [address] Dr. Tisha Carr Monocytes/100 WBC (Bld) 6.0 % Normal 1.7-12.0 [facility] Comment on above: Performed By: #### U RCX #### [facility] [address] [address] [address] Tisha Carr NEUT # 10.8 103/ul Critically high 1.4-6.5 [facility] Comment on above: Performed By: #### U RCX #### [facility] [address] [address] [address] Tisha Carr Neutrophils/100 WBC (Bld) 84.9 % Critically high 43.0-75.0 [facility] Comment on above: Performed By: #### U RCX #### [facility] [address] [place] [address] Dr. Tisha Carr Platelet mean volume (Bld) [Entitic vol] 10.8 fL Normal 9.5-13.5 [facility] Comment on above: Performed By: #### U RCX #### [facility] [address] [place] [address] Dr. Tisha Carr PLT 237 103/ul Normal 150-450 [facility] Comment on above: Performed By: #### U RCX #### [facility] [address] [place] [address] Dr. Tisha Carr RBC 4.99 106/ul Normal 4.20-5.40 [facility] Comment on above: Performed By: #### U RCX #### [facility] [address] [place] [address] Dr. Tisha Carr WBC 12.7 103/ul Critically high 4.0-11.0 [facility] Comment on above: Performed By: #### U RCX #### [facility] [address] [place] [address] Dr. Tisha Carr CRPon 06-21-2022 CRP 10.0 mg/dL Critically high <=1.0 [facility] Comment on above: Performed By: #### C RP, CMP, LIPA #### [facility] [address] [place] [address] Dr. Tisha FRANCO URINE PROFILEon 2 Bilirubin Ql (U) SMALL Abnormal NEGATIVE [facility] Comment on above: Performed By: #### YULY BRYANT, PREGU #### [facility] [address] [place] [address] Dr. Tisha Carr Clarity (U) CLEAR Normal CLEAR [facility] Comment on above: Performed By: #### YULY BRYANT, PREGU #### [facility] [address] [address] [address] Tisha Carr Color (U) YELLOW Normal YELLOW [facility] Comment on above: Performed By: #### YULY BRYANT, PREGU #### [facility] [address] [place] [address] Dr. Tisha QUEZADA A micrscopic examina tion will be performed if indicated. Normal [facility] Comment on above: Performed By: #### LEIGH BRYANTICRO, PREGU #### [facility] [address] [place] [address] Dr. Tisha Carr Glucose Ql (U) Negative Normal NEGATIVE [facility] Comment on above: Performed By: #### YULY BRYANT, PREGU #### [facility] [address] [place] [address] Dr. Tisha Carr Hemoglobin Ql (U) MODERATE Abnormal NEGATIVE [facility] Comment on above: Performed By: #### NHAN BRYANTRO, PREGU #### [facility] [address] [address] [address] Tisha Carr Ketones Ql (U) 80 mg/dl Abnormal NEGATIVE [facility] Comment on above: Performed By: #### Sofi MEEKRLEIGHICELLE, PREGU #### [facility] [address] [place] [address] Dr. Tisha Carr LEUKOCYTES Negative Normal NEGATIVE [facility] Comment on above: Performed By: #### Sofi RUR UMICRO, PREGU #### [facility] [address] [place] [address] Dr. Tisha Carr Nitrite Ql (U) Negative Normal NEGATIVE [facility] Comment on above: Performed By: #### YULY BRYANT PREGU #### [facility] [address] [place] [address] Dr. Tisha Carr pH (U) 6.0 [pH] Normal 5-9 [facility] Comment on above: Performed By: #### YULY BRYANT PREGU #### [facility] [address] [place] [address] Dr. Tisha Carr SPEC GRAVITY 1.025 Normal 1.005-<=1.025 [facility] Comment on above: Performed By: #### YULY BRYANT PREGU #### [facility] [address] [place] [address] Dr. Tisha Carr UA PROTEIN TRACE Normal NEGATIVE/ TRACE [facility] Comment on above: Performed By: #### YULY BRYANT PREGU #### [facility] [address] [place] [address] Dr. Tisha Carr UR MICRO IND INDICATED Normal [facility] Comment on above: Performed By: #### YULY BRYANT PREGU #### [facility] [address] [place] [address] Dr. Tisha Carr Urobilinogen Qn (U) 1.0 {Alma'U}/dL Normal 0.2 - 1.0 [facility] Comment on above: Performed By: #### YULY BRYANT PREGU #### [facility] [address] [place] [address] Dr. Tisha Carr LACTATE/LACTIC ACIDon 2021 Lactate [Moles/Vol] 1.0 mmol/L Normal 0.4-1.9 [facility] Comment on above: Performed By: #### U RCX #### [facility] [address] [place] [address] Dr. Tisha Carr LIPASEon 06-21-2022 Lipase [Catalytic activity/Vol] 41.0 U/L Critically low 73.0-393.0 [facility] Comment on above: Performed By: #### C RP, CMP, LIPA #### [facility] [address] [address] [address] Tisha Carr URon 06-21-2022 , QUAL Negative Normal NEGATIVE [facility] Comment on above: Performed By: #### E RUR, LEIGHICRO, PREGU #### [facility] [address] [place] [address] Dr. Tisha Carr PROF 14(COMP METB)on 022 Albumin [Mass/Vol] 4.0 g/dL Normal 3.4-5.[address] [facility] Comment on above: Performed By: #### C RP, CMP, LIPA #### [facility] [address] [place] [address] Dr. Tisha Carr Albumin/Globulin [Mass ratio] 1.0 {ratio} Normal [facility] Comment on above: Performed By: #### C RP, CMP, LIPA #### [facility] [address] [address] [address] Tisha Carr ALP [Catalytic activity/Vol] 74 U/L Normal 46-116 [facility] Comment on above: Performed By: #### C RP, CMP, LIPA #### [facility] [address] [place] [address] Dr. Tisha Carr ALT [Catalytic activity/Vol] 33 U/L Normal 14-59 [facility] Comment on above: Performed By: #### C RP, CMP, LIPA #### [facility] [address] [address] [address] Tisha Carr Anion gap [Moles/Vol] 15.8 mmol/L Normal [facility] Comment on above: Performed By: #### C RP, CMP, LIPA #### [facility] [address] [place] [address] Dr. Tisha Carr AST [Catalytic activity/Vol] 17 U/L Normal 15-37 [facility] Comment on above: Performed By: #### C RP, CMP, LIPA #### [facility] [address] [place] [address] Dr. Tisha Carr Bilirubin [Mass/Vol] 1.3 mg/dL Critically high 0.2-1.0 [facility] Comment on above: Performed By: #### C RP, CMP, LIPA #### [facility] [address] [address] [address] Tisha Carr Calcium [Mass/Vol] 9.2 mg/dL Normal 8.5-10.[address] [facility] Comment on above: Performed By: #### C RP, CMP, LIPA #### [facility] [address] [place] [address] Dr. Tisha Carr Chloride [Moles/Vol] 102 mmol/L Normal 98-107 [facility] Comment on above: Performed By: #### C RP, CMP, LIPA #### [facility] [address] [place] [address] Dr. Tisha Carr CO2 [Moles/Vol] 22.7 mmol/L Normal 21.0-32.0 [facility] Comment on above: Performed By: #### C RP, CMP, LIPA #### [facility] [address] [place] [address] Dr. Tisha Carr Creatinine [Mass/Vol] 0.70 mg/dL Normal 0.55-1.02 [facility] Comment on above: Performed By: #### C RP, CMP, LIPA #### [facility] [address] [place] [address] Dr. Tisha Carr EGFR-AF BRAZILIAN >60 Normal >=60 [facility] Comment on above: Performed By: #### C RP, CMP, LIPA #### [facility] [address] [place] [address] Dr. Tisha Carr EGFR-NON AF BRAZILIAN >60 Normal >=60 [facility] Comment on above: Performed By: #### C RP, CMP, LIPA #### [facility] [address] [place] [address] Dr. Tisha Carr Globulin (S) [Mass/Vol] 4.2 g/dL Normal [facility] Comment on above: Performed By: #### C RP, CMP, LIPA #### [facility] [address] [address] [address] Tisha Carr Glucose [Mass/Vol] 93 mg/dL Normal 74-106 [facility] Comment on above: Performed By: #### C RP, CMP, LIPA #### [facility] [address] [address] [address] Tisha Carr Potassium [Moles/Vol] 3.5 mmol/L Normal 3.5-5.1 [facility] Comment on above: Performed By: #### C RP, CMP, LIPA #### [facility] [address] [address] [address] Tisha Carr Protein [Mass/Vol] 8.2 g/dL Normal 6.4-8.2 [facility] Comment on above: Performed By: #### C RP, CMP, LIPA #### [facility] [address] [address] [address] Tisha Carr Sodium [Moles/Vol] 137 mmol/L Normal 136-145 [facility] Comment on above: Performed By: #### C RP, CMP, LIPA #### [facility] [address] [address] [address] Tisha Carr Urea nitrogen [Mass/Vol] 16.0 mg/dL Normal 7.0-18.0 [facility] Comment on above: Performed By: #### C RP, CMP, LIPA #### [facility] [address] [address] [address] Tisha Carr Urea nitrogen/Creatinin e [Mass ratio] 22.9 mg/mg Normal [facility] Comment on above: Performed By: #### C RP, CMP, LIPA #### [facility] [address] [address] [address] Tisha Carr URINE MICROSCOPIC ONLYon BACTERIA TRACE Abnormal NONE SEEN [facility] Comment on above: Performed By: #### E YULY CUMMINS PREGU #### [facility] [address] [address] [address] Tisha Carr Bacteria identified Cx Nom (U) NOT INDICATED Normal [facility] Comment on above: Performed By: #### E RUR, UMICRO, PREGU #### [facility] [address] [address] [address] Tisha Carr CAST NONE SEEN Normal NONE SEEN [facility] Comment on above: Performed By: #### E RUR, UMICRO, PREGU #### [facility] [address] [address] [address] Tisha Carr Crystals LM Nom (Urine sed) NONE SEEN Normal NONE SEEN [facility] Comment on above: Performed By: #### E RUR, UMICRO, PREGU #### [facility] [address] [address] [address] Tisha Carr Epithelial cells LM Ql (Urine sed) MODERATE Abnormal NONE SEEN /RARE [facility] Comment on above: Performed By: #### E RUR, UMICRO, PREGU #### [facility] [address] [address] [address] Tisha Crar MUCOUS MODERATE Abnormal NONE SEEN [facility] Comment on above: Performed By: #### Sofi RUR UMICRO, PREGU #### [facility] [address] [address] [address] Tisha Carr RBC 0-2 Normal 0-2 [facility] Comment on above: Performed By: #### Sofi MEEKR, LEIGHICRO, PREGU #### [facility] [address] [address] [address] Tisha Carr WBC 0-2 Abnormal NONE SEEN [facility] Comment on above: Performed By: #### Sofi MEEKR UMICRO, PREGU #### [facility] [address] [address] [address] Tisha Carr PAP ACOG PANEL 2: 21 to 29on 04-11-2022 . . Normal [facility] Comment on above: Performed By: #### U RCX #### [facility] [address] [address] [address] Tisha Carr Age Gdln ACOG Testing 21-29 Normal [facility] Comment on above: Performed By: #### U RCX #### [facility] [address] [place] [address] Dr. Tisha Carr DIAGNOSIS: Comment Normal [facility] Comment on above: Result Comment: NEGA TIVE FOR INTRAEPITHELIAL LESION OR MALIGNANCY. FUNGAL ORGANISMS MORPHOLOGICALLY CONSISTENT WITH SHEREE SPECIES ARE PRESENT. Performed By: #### U RCX #### [facility] [address] [place] [address] Dr. Tisha Carr Methodology: Comment Normal [facility] Comment on above: Result Comment: This liquid based ThinPrep(R) pap test was screened with the use of an image guided system. Performed By: #### U RCX #### [facility] [address] [place] [address] Dr. Tisha Carr Note: Comment Normal [facility] Comment on above: Result Comment: The Pap smear is a screening test designed to aid in the detection of premalignant and malignant conditions of the uterine cervix. It is not a diagnostic procedure and should not be used as the sole means of detecting cervical cancer. Both false-positive and false-negative reports do occur. . Performed By: #### U RCX #### [facility] [address] [place] [address] Dr. Tisha Carr Performed by: Comment Normal [facility] Comment on above: Result Comment: Caleb Schaeffer, Logistics And Planning Manager (ASCP) Performed By: #### U RCX #### [facility] [address] [place] [address] Dr. Tisha Carr Reflex Criteria: Comment Normal [facility] Comment on above: Result Comment: The HPV DNA reflex criteria were not met with this specimen result therefore, no HPV testing was performed. . Performed By: #### U RCX #### [facility] [address] [place] [address] Dr. Tisha Carr Specimen adequacy: Comment Normal [facility] Comment on above: Result Comment: Sati sfactory for evaluation. Endocervical and/or squamous metaplastic cells (endocervical component) are present. Performed By: #### U RCX #### [facility] [address] [place] [address] Dr. Tisha Carr CULTURE URINEon 01-08-2022 CULTURE [...] Trimethoprim/Sulfamethox azole <=20 S F Normal [facility] Comment on above: Performed By: #### U RCX #### [facility] [address] [place] [address] Dr. Tisha Carr Covid-19 PCR (CVDTB)on 12-23 SARS-CoV-2 (COVID-19) RNA OC+probe Ql (Unsp spec) Not detected Normal NOT DETECTED [facility] Comment on above: Result Comment: This test is not yet approved or cleared by the [place] FDA. When there are no FDA-approved or cleared tests available, and other criteria are met, FDA can make tests available under an emergency access mechanism called an Emergency Use Authorization (EUA). The EUA for this test is supported by the Legal Records Clerk of Health and Human Service's (HHS's) declaration [...] SARS-CoV-2. Performed By: #### C VDTBH #### [facility] [address] [place] [address] Dr. Tisha Carr ER URINE PROFILEon 2 Bilirubin Ql (U) MODERATE Abnormal NEGATIVE [facility] Comment on above: Performed By: #### E RUR, UMICRO, PREGU #### [facility] [address] [address] [address] Tisha Carr Clarity (U) CLEAR Normal CLEAR [facility] Comment on above: Performed By: #### E RUR, UMICRO, PREGU #### [facility] [address] [address] [address] Tisha Carr Color (U) DK. YELLOW Normal YELLOW [facility] Comment on above: Performed By: #### E RUR, UMICRO, PREGU #### [facility] [address] [address] [address] Tisha Carr ERUAHIsidra A micrscopic examina tion will be performed if indicated. Normal [facility] Comment on above: Performed By: #### E RUR, UMICRO, PREGU #### [facility] [address] [address] [address] Tisha Carr Glucose Ql (U) Negative Normal NEGATIVE [facility] Comment on above: Performed By: #### E RUR, UMICRO, PREGU #### [facility] [address] [address] [address] Tisha Carr Hemoglobin Ql (U) Negative Normal NEGATIVE [facility] Comment on above: Performed By: #### E RUR, UMICRO, PREGU #### [facility] [address] [address] [address] Tisha Carr Ketones Ql (U) >=80 Abnormal NEGATIVE [facility] Comment on above: Performed By: #### E RUR, UMICRO, PREGU #### [facility] [address] [address] [address] Tisha Carr LEUKOCYTES TRACE Abnormal NEGATIVE [facility] Comment on above: Performed By: #### E RUR, UMICRO, PREGU #### [facility] [address] [address] [address] Tisha Carr Nitrite Ql (U) Negative Normal NEGATIVE [facility] Comment on above: Performed By: #### YULY BRYANT PREGU #### [facility] [address] [place] [address] Dr. Tisha Carr pH (U) 6.0 [pH] Normal 5-9 [facility] Comment on above: Performed By: #### YULY BRYANT, PREGU #### [facility] [address] [place] [address] Dr. Tisha Carr Protein (U) [Mass/Vol] 100 mg/dL Abnormal NEGATIVE/ TRACE [facility] Comment on above: Performed By: #### YULY BRYANT PREGU #### [facility] [address] [place] [address] Dr. Tisha Carr SPEC GRAVITY 1.025 Normal 1.005-<=1.025 [facility] Comment on above: Performed By: #### YULY BRYANT PREGU #### [facility] [address] [place] [address] Dr. Tisha Carr UR MICRO IND INDICATED Normal [facility] Comment on above: Performed By: #### YULY BRYANT PREGU #### [facility] [address] [place] [address] Dr. Tisha Carr Urobilinogen Qn (U) 1.0 {Alma'U}/dL Normal 0.2 - 1.0 [facility] Comment on above: Performed By: #### YULY BRYANT PREGU #### [facility] [address] [place] [address] Dr. Tisha Carr INFLUENZA A AND B AGon 01-06 INFLUANEGH SEE BELOW Normal [facility] Comment on above: Result Comment: Nega tive for Flu A protein angiten. Infection due to Flu A cannot be ruled out. Flu A angiten in the sample may be below the detection limit of the test. Performed By: #### U RCX #### [facility] [address] [place] [address] Dr. Tisha Carr INFLUBNEGH SEE BELOW Normal [facility] Comment on above: Result Comment: Nega tive for Flu B protein antigen. Infection due to Flu B cannot be ruled out. Flu B antigen in the sample may be below the detection limit of the test. Performed By: #### U RCX #### [facility] [address] [place] [address] Dr. Tisha Carr INFLUENZA A AG Negative Normal NEGATIVE SEE COMMENT [facility] Comment on above: Performed By: #### U RCX #### [facility] [address] [address] [address] Tisha Carr INFLUENZA B AG Negative Normal NEGATIVE SEE COMMENT [facility] Comment on above: Performed By: #### U RCX #### [facility] [address] [place] [address] Dr. Tisha Carr INTERNAL CONTROLS Within Normal Limits Normal Wi thin Normal Limits [facility] Comment on above: Performed By: #### U RCX #### [facility] [address] [place] [address] Dr. Tisha Carr URon 01-06-2022 , QUAL Negative Normal NEGATIVE [facility] Comment on above: Performed By: #### E RUR, UMICRO, PREGU #### [facility] [address] [place] [address] Dr. Tisha Carr URINE MICROSCOPIC ONLYon BACTERIA SMALL Abnormal NONE SEEN [facility] Comment on above: Performed By: #### U RCX #### [facility] [address] [place] [address] Dr. Tisha Carr Bacteria identified Cx Nom (U) INDICATED Normal [facility] Comment on above: Performed By: #### U RCX #### [facility] [address] [place] [address] Dr. Tisha Carr CAST NONE SEEN Normal NONE SEEN [facility] Comment on above: Performed By: #### U RCX #### [facility] [address] [place] [address] Dr. Tisha Carr Crystals LM Nom (Urine sed) NONE SEEN Normal NONE SEEN [facility] Comment on above: Performed By: #### U RCX #### [facility] [address] [address] [address] Tisha Carr Epithelial cells LM Ql (Urine sed) MANY Abnormal NONE SEEN /RARE [facility] Comment on above: Performed By: #### U RCX #### [facility] [address] [address] [address] Tisha Carr MUCOUS LARGE Abnormal NONE SEEN [facility] Comment on above: Performed By: #### U RCX #### [facility] [address] [address] [address] Tisha Carr RBC NONE SEEN Abnormal 0-2 [facility] Comment on above: Performed By: #### U RCX #### [facility] [address] [address] [address] Tisha Carr WBC 5-10 Abnormal NONE SEEN [facility] Comment on above: Performed By: #### U RCX #### [facility] [address] [address] [address] Tisha Carr Vital Signs Date Time Vital Sign Value Performing Clinician Faci lity 09-22-2023 16:01-0500 Body weight 89.09 kg Belkis Jessica DO Work Phone: [facility] 09-22-2023 16:01-0500 Diastolic blood pressure 70 [...] PM EST Routine [facility] [address] [id number] Belkis Lopez, [address] [place] [address] [facility] Start: 09-22-2023 End: 09-22-2024 Alpha fetoprotein, maternal Alpha fetoprotein, maternal Lab Routine Second trimester Need for maternal serum alpha-protein (MSAFP) screening Expected: 09/22/2023 (Approximate), Expires: 09/22/2024 [facility] Comment on above: Expected: 09/22/2023 (Approximate), Expires: 09/22/2024 Start: 09-22-2023 End: 09-22-2024 US for US OB ANATOMY SINGLE W US OB CERVICAL LENGTH Imaging Routine Screening, , for anatomic survey Expected: 09/22/2023 (Approximate), Expires: 09/22/2024 [facility] Comment on above: Expected: 09/22/2023 (Approximate), Expires: 09/22/2024 CHLAMYDIA TRACHOMATI S (GENITO/STI) CHLAMYDIA TRACHOMATIS (GENITO/STI) Lab Routine Exposure to STD Ordered: 09/22/2023 [facility] Comment on above: Ordered: 09/22/2023 Cytology Cervical or vaginal smear or scraping study Pap Smear Pathology and Cytology Routine Well woman exam with routine gynecological exam Ordered: 09/22/2023 [facility] Comment on above: Ordered: 09/22/2023 Neisseria gonorrhoea e DNA [Presence] in Unspecified specimen by OC with probe detection Neisseria gonorrhea DNA probe, direct Lab Routine Exposure to STD Ordered: 09/22/2023 [facility] Comment on above: Ordered: 09/22/2023 SURESWAB(R) ADVANCED VAGINITIS PLUS, TMA SURESWAB(R) ADVANCED VAGINITIS PLUS, TMA Pathology and Cytology Routine Exposure to STD Ordered: 09/22/2023 [facility] Work Phone: Comment on above: Ordered: 09/22/2023 Payers Date Payer Category Payer Medicaid [employer] [place] [employer] [id number] 2021-Present [address] [place] [address] [id number] 2000 Unknown [id number] 2000 Unknown [id number] 2.16.840.1.089235.3.579.2.593 2000 Unknown [id number] 2.16.840.1.151427.3.579.2.593 2000 Unknown [id number] 2.16.840.1.119711.3.579.2.593 2000 Unknown [id number] 2.16.840.1.427342.3.579.2.1259 2000 Unknown [id number] 2.16.840.1.087467.3.579.2.1259 2000 Unknown [id number] 2.16.840.1.320941.3.579.2.1259 2000 Unknown [id number] 2.16.840.1.924694.3.579.2.1259 2000 Unknown [id number] 2.16.840.1.979764.3.579.2.1259 2000 Unknown [id number] 2.16.840.1.322208.3.579.2.9 2000 Unknown [id number] 2.16.840.1.636130.3.579.2.1259 2000 Unknown [id number] 2.16.840.1.605005.3.579.2.9 2000 Unknown [id number] 2.16.840.1.842990.3.579.2.1259 1959 Unknown [id number] Social History Date Type Detail Facility Tobacco smoking stat [facility] Tobacco smoking consumption unknown [facility] Start: 05-22-2023 [facility] Start: 2000 Sex Assigned At Female [facility] Start: 07-03-2023 Gender identity Identifies as female gender (finding) [facility] Sexual orientation Not on file [facility] [...] Problems Past Medical History: Diagnosis Date Asthma ([facility]) No family history on file. Social History [...] nursing note reviewed. Exam conducted with a grocery clerk checking present. Vitals: There is no height or [...] DATE CREATED AUTHOR AUTHOR'S ORGANIZ ATION 01/06/2024 [facility] EPIC Reason for Visit (unrecogniz [...] BE BASED ON THE PRIMARY CLINICAL RECORDS. [employer] provides no warranty or guarantee of the accuracy or completeness of information in this document.
--- NOTE | 2024-01-10 11:08 | US_ITS ---
[address] [address] Patient Name: FLORENCIA NEELY MRN: [id number] date: 2000 Sex: F Assigned Patient Location: [facility] Current Patient Location: Accession/Order Number: [id number] Exam Date: 01/10/2024 11:09 Report Date: 01/12/2024 11:00 At the request of: BELKIS BRAND Procedure: US OB BPP w non-stress EXAMINATION: US OB BPP w non-stress HISTORY: GESTATION DIABETES MELLITUS O24.414 COMPARISON: Ultrasound OB biophysical 01/07/2024 TECHNIQUE: Ultrasound biophysical profile was performed in the radiology department. BREATHING MOVEMENTS: 2.0 GROSS BODY MOVEMENTS: 2.0 TONE: 2.0 QUALITATIVE AMNIOTIC FLUID VOLUME: 2.0 PRESENTATION: CEPHALIC HEART RATE: 137.1 bpm bpm. AMNIOTIC FLUID VOLUME: 15.1 cm GESTATIONAL AGE: 35 weeks 2 days CONCLUSION: Total biophysical profile score 8.0. Electronically authenticated by: MERVAT LANG Date: 01/12/2024 11:00
[2024-01-10 11:29] VITALS: BP 132/72; PULSE 92
== END 2024-01-10 11:57 | disposition home or self-care (01) ==
LOC: US 02:48 → FBC 11:06
PROVIDERS: PCP Nurse Practitioner Family; Visit Provider Obstetrics & Gynecology
DX: O24.414 Gestational diabetes mellitus in pregnancy, insulin controlled (principal); Z3A.35 35 weeks gestation of pregnancy
CPT/HCPCS: 76818

== ENCOUNTER 2024-01-14 07:10 | Outpatient (OUT) | payer OTHER, SELFPAY ==
--- OUTSIDE RECORDS SUMMARY | 2024-01-14 08:03 | XMS_ITS | CCD ---
Author Organization [facility] Inform ion Partnership [facility] Care Team Providers Care Firestopper Installer Name Role Phone JOSE ., LITA Admitting Unavailable JOSE ., LITA Attending Unavailable RYLEY, ARIANE Primary Care Unavailable JOSE ., LITA Consulting Unavailable RYLEY, ARIANE Admitting Unavailable RYLEY, ARIANE Attending Unavailable RYLEY, ARIANE Primary Care Unavailable RYLEY, ARIANE Consulting Unavailable JESSICA ., DR TAMAYO Admitting [...] (1 source) Ibuprofen Drug Allergy 01-15-2016 [facility] Repository (2 sources) Ibuprofen Drug Allergy 07-10-2023 Unknown [facility] Work Phone: Medications Current Medications Medication [...] GDLNon AGE GDLN ACOG TESTING Note . [facility] Comment on above: TESTS RESULT FLAG UN ITS REF RANGE LAB Clinician Provided Cytology Information Source.............Cervix Other.............. No. of containers..01 ThinPrep Vial Age Algo ACOG Bina... - 01 FLAG LEGEND: L-Low Normal,H-High Normal,LL-Alert Low,HH-Alert High <-Panic Low,>-Panic High,A-Abnormal,AA-Critical Abnormal Performed at: 01 =G [address] [place] [id number] Lali Holloway MD, IGP, RFX APTIMA HPV ASCU Note . [facility] Comment on above: TESTS RESULT FLAG UN ITS REF RANGE LAB DIAGNOSIS: 02 NEGATIVE FOR INTRAEPITHELIAL LESION OR MALIGNANCY. Specimen adequacy: 02 Satisfactory for evaluation. No endocervical component is identified. An endocervical component is not commonly seen in the patient. Performed by: 02 Kieran Pickering, Hedge Fund Accountant ([facility]) . 02 Note: Note 02 [...] Low,>-Panic High,A-Abnormal,AA-Critical Abnormal Performed at: [address] [facility] [address] [place] [address] Lali Holloway MD, Performed at: =G - [facility] [address] [id number] Geotechnical Laboratory Technician: Lali Holloway MD, Phone: [phone] Performed at: - [facility] [id number] Geotechnical Laboratory Technician: Lali Holloway MD, Phone: [phone] [facility] Urinalysis macro (dipstick) panel (U)on 09-22-2023 Bilirubin, UA Negative Negative - 4(70) +++ mg/dL [facility] Blood, UA Negative Negative - 50 Flash/mcL [facility] Clarity, UA Clear [facility] Color, UA Yellow [facility] Glucose, UA Negative Negative - 1999(110) ++++ mg/dL [facility] Interpretation and review of laboratory results Abnormal [facility] Ketones, UA Positive Negative - 160(16) ++++ mg/dL [facility] Leukocytes, UA Negative Negative - 500+++ Taylor/mcL [facility] Nitrite, UA Negative Negative - Positive [facility] pH, UA 5.5 5 - 9 [facility] Protein, UA Negative Negative - 1999(20) ++++ mg/dL [facility] Spec Grav, UA 1.020 1 - 1.03 [facility] Urobilinogen, UA 0.2 0.2 - 12 mg/dL [facility] COMPLIANCE DRUG SCREENon PDF . Normal [facility] Comment on above: Performed By: #### U RCX #### [facility] [address] [place] [address] Dr. Tisha Carr Summary FINAL Normal [facility] Comment on above: Result Comment: = [...] test is not intended to distinguish between vtxnu-[id number], the predominant form of THC in most herbal or marijuana-based products, and [id number]. Methylphenidate PRESENT UNEXPECTED Ritalinic Acid PRESENT UNEXPECTED [...] = Performed By: #### U RCX #### [facility] [address] [address] [address] Tisha Carr URIC ACID RAND URINEon 10-31 Uric Acid, Urine 67.3 mg/dL Normal Not Estab. [facility] Comment on above: Performed By: #### U RCX #### [facility] [address] [place] [address] Dr. Tisha Carr DRUG SCREEN RAPID (URINE)on 10-30-2022 AMP Negative Normal NEGATIVE [facility] Comment on above: Performed By: #### U RCX #### [facility] [address] [place] [address] Dr. Tisha Carr BAR Negative Normal NEGATIVE [facility] Comment on above: Performed By: #### U RCX #### [facility] [address] [place] [address] Dr. Tisha Carr BUP Negative Normal NEGATIVE [facility] Comment on above: Performed By: #### U RCX #### [facility] [address] [place] [address] Dr. Tisha Carr BZO Negative Normal NEGATIVE [facility] Comment on above: Performed By: #### U RCX #### [facility] [address] [place] [address] Dr. Tisha Carr SOCRATES Negative Normal NEGATIVE [facility] Comment on above: Performed By: #### U RCX #### [facility] [address] [place] [address] Dr. Tisha Carr CUT-OFFS SEE BELOW Normal [facility] Comment on above: Result Comment: AMP [...] ng/mL Performed By: #### U RCX #### [facility] [address] [place] [address] Dr. Tisha Carr DRUG CUT HEADER DRUG CLASS TEST SYST EM CUT-OFF CONCENTRATIONS ARE FOLLOWS: Normal [facility] Comment on above: Performed By: #### U RCX #### [facility] [address] [place] [address] Dr. Tisha Carr mAMP Negative Normal NEGATIVE [facility] Comment on above: Performed By: #### U RCX #### [facility] [address] [place] [address] Dr. Tisha Carr MTD Negative Normal NEGATIVE [facility] Comment on above: Performed By: #### U RCX #### [facility] [address] [place] [address] Dr. Tisha Carr OPI Negative Normal NEGATIVE [facility] Comment on above: Performed By: #### U RCX #### [facility] [address] [place] [address] Dr. Tisha Carr OXY Negative Normal NEGATIVE [facility] Comment on above: Performed By: #### U RCX #### [facility] [address] [place] [address] Dr. Tisha Carr PCP Negative Normal NEGATIVE [facility] Comment on above: Performed By: #### U RCX #### [facility] [address] [place] [address] Dr. Tisha Carr PPX Negative Normal NEGATIVE [facility] Comment on above: Performed By: #### U RCX #### [facility] [address] [place] [address] Dr. Tisha Carr TCA Negative Normal NEGATIVE [facility] Comment on above: Performed By: #### U RCX #### [facility] [address] [place] [address] Dr. Tisha Carr THC Positive Abnormal NEGATIVE [facility] Comment on above: Performed By: #### U RCX #### [facility] [address] [place] [address] Dr. Tisha Carr CBC AUTO DIFFon 06-21-2022 BASO # 0.0 103/ul Normal 0.0-0.1 [facility] Comment on above: Performed By: #### U RCX #### [facility] [address] [address] [address] Tisha Carr Basophils/100 WBC (Bld) 0.2 % Normal 0.2-2.0 [facility] Comment on above: Performed By: #### U RCX #### [facility] [address] [place] [address] Dr. Tisha Carr EO # 0.0 103/ul Normal 0.0-0.7 [facility] Comment on above: Performed By: #### U RCX #### [facility] [address] [place] [address] Dr. Tisha Carr Eosinophils/100 WBC (Bld) 0.2 % Critically low 0.9-7.0 [facility] Comment on above: Performed By: #### U RCX #### [facility] [address] [place] [address] Dr. Tisha Carr Erythrocyte distribution width (RBC) [Ratio] 12.3 % Normal 11.0-15.0 [facility] Comment on above: Performed By: #### U RCX #### [facility] [address] [place] [address] Dr. Tisha Carr Hematocrit (Bld) [Volume fraction] 43.1 % Normal 36.0-48.0 [facility] Comment on above: Performed By: #### U RCX #### [facility] [address] [place] [address] Dr. Tisha Carr Hemoglobin (Bld) [Mass/Vol] 15.1 g/dL Normal 12.0-16.0 [facility] Comment on above: Performed By: #### U RCX #### [facility] [address] [place] [address] Dr. Tisha Carr IG # 0.06 10e3/ul Critically high 0.00-0.03 [facility] Comment on above: Performed By: #### U RCX #### [facility] [address] [address] [address] Tisha Carr IG % 0.5 % Normal 0.0-0.5 [facility] Comment on above: Performed By: #### U RCX #### [facility] [address] [address] [address] Tisha Carr LYMPH # 1.0 103/ul Critically low 1.2-3.8 [facility] Comment on above: Performed By: #### U RCX #### [facility] [address] [address] [address] Tisha Carr Lymphocytes/100 WBC (Bld) 8.2 % Critically low 20.5-60.0 [facility] Comment on above: Performed By: #### U RCX #### [facility] [address] [place] [address] Dr. Tisha Carr MANUAL DIFF REQ NO Normal [facility] Comment on above: Performed By: #### U RCX #### [facility] [address] [address] [address] Tisha Carr MCH (RBC) [Entitic mass] 30.3 pg Normal 26.7-34.0 [facility] Comment on above: Performed By: #### U RCX #### [facility] [address] [place] [address] Dr. Tisha Carr MCHC (RBC) [Mass/Vol] 35.0 g/dL Normal 29.9-35.2 [facility] Comment on above: Performed By: #### U RCX #### [facility] [address] [address] [address] Tisha Carr MCV (RBC) [Entitic vol] 86.4 fL Normal 81.0-99.0 [facility] Comment on above: Performed By: #### U RCX #### [facility] [address] [place] [address] Dr. Tisha Carr MONO # 0.8 103/ul Normal 0.3-0.8 [facility] Comment on above: Performed By: #### U RCX #### [facility] [address] [address] [address] Tisha Carr Monocytes/100 WBC (Bld) 6.0 % Normal 1.7-12.0 [facility] Comment on above: Performed By: #### U RCX #### [facility] [address] [address] [address] Tisha Carr NEUT # 10.8 103/ul Critically high 1.4-6.5 [facility] Comment on above: Performed By: #### U RCX #### [facility] [address] [address] [address] Tisha Carr Neutrophils/100 WBC (Bld) 84.9 % Critically high 43.0-75.0 [facility] Comment on above: Performed By: #### U RCX #### [facility] [address] [address] [address] Tisha Carr Platelet mean volume (Bld) [Entitic vol] 10.8 fL Normal 9.5-13.5 [facility] Comment on above: Performed By: #### U RCX #### [facility] [address] [address] [address] Tisha Carr PLT 237 103/ul Normal 150-450 [facility] Comment on above: Performed By: #### U RCX #### [facility] [address] [address] [address] Tisha Carr RBC 4.99 106/ul Normal 4.20-5.40 [facility] Comment on above: Performed By: #### U RCX #### [facility] [address] [address] [address] Tisha Carr WBC 12.7 103/ul Critically high 4.0-11.0 [facility] Comment on above: Performed By: #### U RCX #### [facility] [address] [address] [address] Tisha Carr CRPon 06-21-2022 CRP 10.0 mg/dL Critically high <=1.0 [facility] Comment on above: Performed By: #### C RP, CMP, LIPA #### [facility] [address] [address] [address] Tisha Carr ER URINE PROFILEon 2 Bilirubin Ql (U) SMALL Abnormal NEGATIVE [facility] Comment on above: Performed By: #### YULY BRYANT, PREGU #### [facility] [address] [address] [address] Tisha Carr Clarity (U) CLEAR Normal CLEAR [facility] Comment on above: Performed By: #### YULY BRYANT, PREGU #### [facility] [address] [address] [address] Tisha Carr Color (U) YELLOW Normal YELLOW [facility] Comment on above: Performed By: #### YULY BRYANT, PREGU #### [facility] [address] [place] [address] Dr. Tisha Carr ERUREJI A micrscopic examina tion will be performed if indicated. Normal [facility] Comment on above: Performed By: #### YULY BRYANT, PREGU #### [facility] [address] [address] [address] Tisha Carr Glucose Ql (U) Negative Normal NEGATIVE [facility] Comment on above: Performed By: #### YULY BRYANT, PREGU #### [facility] [address] [address] [address] Tisha Carr Hemoglobin Ql (U) MODERATE Abnormal NEGATIVE [facility] Comment on above: Performed By: #### YULY BRYANT, PREGU #### [facility] [address] [address] [address] Tisha Carr Ketones Ql (U) 80 mg/dl Abnormal NEGATIVE [facility] Comment on above: Performed By: #### YULY BRYANT, PREGU #### [facility] [address] [place] [address] Dr. Tisha Carr LEUKOCYTES Negative Normal NEGATIVE [facility] Comment on above: Performed By: #### YULY BRYANT, PREGU #### [facility] [address] [address] [address] Tisha Carr Nitrite Ql (U) Negative Normal NEGATIVE [facility] Comment on above: Performed By: #### YULY BRYANT PREGU #### [facility] [address] [address] [address] Tisha Carr pH (U) 6.0 [pH] Normal 5-9 [facility] Comment on above: Performed By: #### YULY BRYANT PREGU #### [facility] [address] [address] [address] Tisha Carr SPEC GRAVITY 1.025 Normal 1.005-<=1.025 [facility] Comment on above: Performed By: #### YULY BRYANT PREGU #### [facility] [address] [place] [address] Dr. Tisha Carr UA PROTEIN TRACE Normal NEGATIVE/ TRACE [facility] Comment on above: Performed By: #### YULY BRYANT PREGU #### [facility] [address] [address] [address] Tisha Carr UR MICRO IND INDICATED Normal [facility] Comment on above: Performed By: #### YULY BRYANT PREGU #### [facility] [address] [address] [address] Tisha Carr Urobilinogen Qn (U) 1.0 {Alma'U}/dL Normal 0.2 - 1.0 [facility] Comment on above: Performed By: #### YULY BRYANT PREGU #### [facility] [address] [place] [address] Dr. Tisha Carr LACTATE/LACTIC ACIDon 2021 Lactate [Moles/Vol] 1.0 mmol/L Normal 0.4-1.9 [facility] Comment on above: Performed By: #### U RCX #### [facility] [address] [place] [address] Dr. Tisha Carr LIPASEon 06-21-2022 Lipase [Catalytic activity/Vol] 41.0 U/L Critically low 73.0-393.0 [facility] Comment on above: Performed By: #### C RP, CMP, LIPA #### [facility] [address] [address] [address] Tisha Carr URon 06-21-2022 , QUAL Negative Normal NEGATIVE [facility] Comment on above: Performed By: #### E RUR, UMICRO, PREGU #### [facility] [address] [address] [address] Tisha Carr PROF 14(COMP METB)on 022 Albumin [Mass/Vol] 4.0 g/dL Normal 3.4-5.0 [facility] Comment on above: Performed By: #### C RP, CMP, LIPA #### [facility] [address] [place] [address] Dr. Tisha Carr Albumin/Globulin [Mass ratio] 1.0 {ratio} Normal [facility] Comment on above: Performed By: #### C RP, CMP, LIPA #### [facility] [address] [place] [address] Dr. Tisha Carr ALP [Catalytic activity/Vol] 74 U/L Normal 46-116 [facility] Comment on above: Performed By: #### C RP, CMP, LIPA #### [facility] [address] [place] [address] Dr. Tisha Carr ALT [Catalytic activity/Vol] 33 U/L Normal 14-59 [facility] Comment on above: Performed By: #### C RP, CMP, LIPA #### [facility] [address] [place] [address] Dr. Tisha Carr Anion gap [Moles/Vol] 15.8 mmol/L Normal [facility] Comment on above: Performed By: #### C RP, CMP, LIPA #### [facility] [address] [place] [address] Dr. Tisha Carr AST [Catalytic activity/Vol] 17 U/L Normal 15-37 [facility] Comment on above: Performed By: #### C RP, CMP, LIPA #### [facility] [address] [address] [address] Tihsa Carr Bilirubin [Mass/Vol] 1.3 mg/dL Critically high 0.2-1.0 [facility] Comment on above: Performed By: #### C RP, CMP, LIPA #### [facility] [address] [place] [address] Dr. Tisha Carr Calcium [Mass/Vol] 9.2 mg/dL Normal 8.5-10.1 [facility] Comment on above: Performed By: #### C RP, CMP, LIPA #### [facility] [address] [place] [address] Dr. Tisha Carr Chloride [Moles/Vol] 102 mmol/L Normal 98-107 [facility] Comment on above: Performed By: #### C RP, CMP, LIPA #### [facility] [address] [place] [address] Dr. Tisha Carr CO2 [Moles/Vol] 22.7 mmol/L Normal 21.0-32.0 [facility] Comment on above: Performed By: #### C RP, CMP, LIPA #### [facility] [address] [place] [address] Dr. Tisha Carr Creatinine [Mass/Vol] 0.70 mg/dL Normal 0.55-1.02 [facility] Comment on above: Performed By: #### C RP, CMP, LIPA #### [facility] [address] [place] [address] Dr. Tisha Carr EGFR-AF IVORIAN >60 Normal >=60 [facility] Comment on above: Performed By: #### C RP, CMP, LIPA #### [facility] [address] [place] [address] Dr. Tisha Carr EGFR-NON AF IVORIAN >60 Normal >=60 [facility] Comment on above: Performed By: #### C RP, CMP, LIPA #### [facility] [address] [place] [address] Dr. Tisha Carr Globulin (S) [Mass/Vol] 4.2 g/dL Normal [facility] Comment on above: Performed By: #### C RP, CMP, LIPA #### [facility] [address] [place] [address] Dr. Tisha Carr Glucose [Mass/Vol] 93 mg/dL Normal 74-106 [facility] Comment on above: Performed By: #### C RP, CMP, LIPA #### [facility] [address] [place] [address] Dr. Tisha Carr Potassium [Moles/Vol] 3.5 mmol/L Normal 3.5-5.1 [facility] Comment on above: Performed By: #### C RP, CMP, LIPA #### [facility] [address] [place] [address] Dr. Tisha Carr Protein [Mass/Vol] 8.2 g/dL Normal 6.4-8.2 [facility] Comment on above: Performed By: #### C RP, CMP, LIPA #### [facility] [address] [place] [address] Dr. Tisha Carr Sodium [Moles/Vol] 137 mmol/L Normal 136-145 [facility] Comment on above: Performed By: #### C RP, CMP, LIPA #### [facility] [address] [place] [address] Dr. Tisha Carr Urea nitrogen [Mass/Vol] 16.0 mg/dL Normal 7.0-18.0 [facility] Comment on above: Performed By: #### C RP, CMP, LIPA #### [facility] [address] [place] [address] Dr. Tisha Carr Urea nitrogen/Creatinin e [Mass ratio] 22.9 mg/mg Normal [facility] Comment on above: Performed By: #### C RP, CMP, LIPA #### [facility] [address] [place] [address] Dr. Tisha Carr URINE MICROSCOPIC ONLYon BACTERIA TRACE Abnormal NONE SEEN [facility] Comment on above: Performed By: #### E RUR, UMICRO, PREGU #### [facility] [address] [place] [address] Dr. Tisha Carr Bacteria identified Cx Nom (U) NOT INDICATED Normal [facility] Comment on above: Performed By: #### E RUR, UMICRO, PREGU #### [facility] [address] [place] [address] Dr. Tisha Carr CAST NONE SEEN Normal NONE SEEN [facility] Comment on above: Performed By: #### E RUR, UMICRO, PREGU #### [facility] [address] [address] [address] Tisha Carr Crystals LM Nom (Urine sed) NONE SEEN Normal NONE SEEN [facility] Comment on above: Performed By: #### E RUR, UMICRO, PREGU #### [facility] [address] [place] [address] Dr. Tisha Carr Epithelial cells LM Ql (Urine sed) MODERATE Abnormal NONE SEEN /RARE [facility] Comment on above: Performed By: #### E RUR, UMICRO, PREGU #### [facility] [address] [place] [address] Dr. Tisha Carr MUCOUS MODERATE Abnormal NONE SEEN [facility] Comment on above: Performed By: #### E RUR, UMICRO, PREGU #### [facility] [address] [place] [address] Dr. Tisha Carr RBC 0-2 Normal 0-2 [facility] Comment on above: Performed By: #### E RUR, UMICRO, PREGU #### [facility] [address] [place] [address] Dr. Tisha Carr WBC 0-2 Abnormal NONE SEEN [facility] Comment on above: Performed By: #### E RUR, UMICRO, PREGU #### [facility] [address] [place] [address] Dr. Tisha Carr PAP ACOG PANEL 2: 21 to 29on 04-11-2022 . . Normal [facility] Comment on above: Performed By: #### U RCX #### [facility] [address] [place] [address] Dr. Tisha Carr Age Gdln ACOG Testing - Normal [facility] Comment on above: Performed By: #### U RCX #### [facility] [address] [place] [address] Dr. Tisha Carr DIAGNOSIS: Comment Normal [facility] Comment on above: Result Comment: NEGA TIVE FOR INTRAEPITHELIAL LESION OR MALIGNANCY. FUNGAL ORGANISMS MORPHOLOGICALLY CONSISTENT WITH SHEREE SPECIES ARE PRESENT. Performed By: #### U RCX #### [facility] [address] [place] [address] Dr. Tisha aCrr Methodology: Comment Normal [facility] Comment on above: Result Comment: This liquid based ThinPrep(R) pap test was screened with the use of an image guided system. Performed By: #### U RCX #### [facility] [address] [place] [address] Dr. Tisha Carr Note: Comment Normal [facility] Comment on above: Result Comment: The Pap smear is a screening test designed to aid in the detection of premalignant and malignant conditions of the uterine cervix. It is not a diagnostic procedure and should not be used as the sole means of detecting cervical cancer. Both false-positive and false-negative reports do occur. . Performed By: #### U RCX #### [facility] [address] [place] [address] Dr. Tisha Carr Performed by: Comment Normal [facility] Comment on above: Result Comment: Caleb Schaeffer, Hedge Fund Accountant (ASCP) Performed By: #### U RCX #### [facility] [address] [place] [address] Dr. Tisha Carr Reflex Criteria: Comment Normal [facility] Comment on above: Result Comment: The HPV DNA reflex criteria were not met with this specimen result therefore, no HPV testing was performed. . Performed By: #### U RCX #### [facility] [address] [place] [address] Dr. Tisha Carr Specimen adequacy: Comment Normal [facility] Comment on above: Result Comment: Sati sfactory for evaluation. Endocervical and/or squamous metaplastic cells (endocervical component) are present. Performed By: #### U RCX #### [facility] [address] [place] [address] Dr. Tisha Carr CULTURE URINEon 01-08-2022 CULTURE [...] Trimethoprim/Sulfamethox azole <=20 S F Normal The [facility] Comment on above: Performed By: #### U RCX #### [facility] [address] [place] [address] Dr. Tisha Carr Covid-19 PCR (CVDTB)on 12-23 SARS-CoV-2 (COVID-19) RNA OC+probe Ql (Unsp spec) Not detected Normal NOT DETECTED The [facility] Comment on above: Result Comment: This test is not yet approved or cleared by the [place] FDA. When there are no FDA-approved or cleared tests available, and other criteria are met, FDA can make tests available under an emergency access mechanism called an Emergency Use Authorization (EUA). The EUA for this test is supported by the [place] of Health and Human Service's (HHS's) declaration [...] SARS-CoV-2. Performed By: #### C VDTBH #### [facility] [address] [place] [address] Dr. Tisha Carr ER URINE PROFILEon 2 Bilirubin Ql (U) MODERATE Abnormal NEGATIVE The [facility] Comment on above: Performed By: #### YULY BRYANT, PREGU #### [facility] [address] [place] [address] Dr. Tisha Carr Clarity (U) CLEAR Normal CLEAR The [facility] Comment on above: Performed By: #### YULY BRYANT, PREGU #### [facility] [address] [address] [address] Tisha Carr Color (U) DK. YELLOW Normal YELLOW The [facility] Comment on above: Performed By: #### YULY BRYANT, PREGU #### [facility] [address] [place] [address] Dr. Tisha QUEZADA A micrscopic examina tion will be performed if indicated. Normal The [facility] Comment on above: Performed By: #### YULY BRYANT, PREGU #### [facility] [address] [place] [address] Dr. Tisha Carr Glucose Ql (U) Negative Normal NEGATIVE The [facility] Comment on above: Performed By: #### YULY BRYANT, PREGU #### [facility] [address] [place] [address] Dr. Tisha Carr Hemoglobin Ql (U) Negative Normal NEGATIVE The [facility] Comment on above: Performed By: #### YULY BRYANT, PREGU #### [facility] [address] [place] [address] Dr. Tisha Carr Ketones Ql (U) >=80 Abnormal NEGATIVE The [facility] Comment on above: Performed By: #### LEIGH BRYANTICELLE, PREGU #### [facility] [address] [place] [address] Dr. Tisha Carr LEUKOCYTES TRACE Abnormal NEGATIVE The [facility] Comment on above: Performed By: #### Sofi MEEKRYULY, PREGU #### [facility] [address] [place] [address] Dr. Tisha Carr Nitrite Ql (U) Negative Normal NEGATIVE The [facility] Comment on above: Performed By: #### YULY BRYANT PREGU #### [facility] [address] [place] [address] Dr. Tisha Carr pH (U) 6.0 [pH] Normal 5-9 [facility] Comment on above: Performed By: #### YULY BRYANT PREGU #### [facility] [address] [place] [address] Dr. Tisha Carr Protein (U) [Mass/Vol] 100 mg/dL Abnormal NEGATIVE/ TRACE The [facility] Comment on above: Performed By: #### YULY BRYANT PREGU #### [facility] [address] [place] [address] Dr. Tisha Carr SPEC GRAVITY 1.025 Normal 1.005-<=1.025 [facility] Comment on above: Performed By: #### YULY BRYANT PREGU #### [facility] [address] [place] [address] Dr. Tisha Carr UR MICRO IND INDICATED Normal [facility] Comment on above: Performed By: #### YULY BRYANT PREGU #### [facility] [address] [place] [address] Dr. Tisha Carr Urobilinogen Qn (U) 1.0 {Alma'U}/dL Normal 0.2 - 1.0 [facility] Comment on above: Performed By: #### YULY BRYANT PREGU #### [facility] [address] [place] [address] Dr. Tisha Carr INFLUENZA A AND B [facility] BEL[facility] Normal [facility] Comment on above: Result Comment: Nega tive for Flu A protein angiten. Infection due to Flu A cannot be ruled out. Flu A angiten in the sample may be below the detection limit of the test. Performed By: #### U RCX #### [facility] [address] [place] [address] Dr. Tisha Carr INFLUBNEGH SEE BELOW Normal The [facility] Comment on above: Result Comment: Nega tive for Flu B protein antigen. Infection due to Flu B cannot be ruled out. Flu B antigen in the sample may be below the detection limit of the test. Performed By: #### U RCX #### [facility] [address] [place] [address] Dr. Tisha Carr INFLUENZA A AG Negative Normal NEGATIVE SEE COMMENT The [facility] Comment on above: Performed By: #### U RCX #### [facility] [address] [place] [address] Dr. Tisha Carr INFLUENZA B AG Negative Normal NEGATIVE SEE COMMENT [facility] Comment on above: Performed By: #### U RCX #### [facility] [address] [place] [address] Dr. Tisha Carr INTERNAL CONTROLS Within Normal Limits Normal Wi thin Normal Limits The [facility] Comment on above: Performed By: #### U RCX #### [facility] [address] [place] [address] Dr. Tisha Carr URon 01-06-2022 , QUAL Negative Normal NEGATIVE The [facility] Comment on above: Performed By: #### E RUR, UMICRO, PREGU #### [facility] [address] [place] [address] Dr. Tisha Carr URINE MICROSCOPIC ONLYon BACTERIA SMALL Abnormal NONE SEEN The [facility] Comment on above: Performed By: #### U RCX #### [facility] [address] [place] [address] Dr. Tisha Carr Bacteria identified Cx Nom (U) INDICATED Normal The [facility] Comment on above: Performed By: #### U RCX #### [facility] [address] [place] [address] Dr. Tisha Carr CAST NONE SEEN Normal NONE SEEN The [facility] Comment on above: Performed By: #### U RCX #### [facility] [address] [place] [address] Dr. Tisha Carr Crystals LM Nom (Urine sed) NONE SEEN Normal NONE SEEN The [facility] Comment on above: Performed By: #### U RCX #### [facility] [address] [address] [address] Tisha Carr Epithelial cells LM Ql (Urine sed) MANY Abnormal NONE SEEN /RARE The [facility] Comment on above: Performed By: #### U RCX #### [facility] [address] [address] [address] Tisha Carr MUCOUS LARGE Abnormal NONE SEEN The [facility] Comment on above: Performed By: #### U RCX #### [facility] [address] [address] [address] Tisha Carr RBC NONE SEEN Abnormal 0-2 [facility] Comment on above: Performed By: #### U RCX #### [facility] [address] [place] [address] Dr. Tisha Carr WBC 5-10 Abnormal NONE SEEN The [facility] Comment on above: Performed By: #### U RCX #### [facility] [address] [address] [address] Tisha Carr Vital Signs Date Time Vital Sign Value Performing Clinician Faci lity 09-22-2023 16:01-0500 Body weight 89.09 kg Belkis Jessica DO Work Phone: [facility] 09-22-2023 16:01-0500 Diastolic blood pressure 70 mm[Hg] Belkis Jessica DO Work Phone: [facility] 09-22-2023 16:01-0500 Systolic blood pressure 120 mm[Hg] Belkis Jessica DO Work Phone: [facility] Encounters Encounter Date Encounter Type Care Provider Facility Start: 01-12-2024 End: 01-12-2024 ambulatory BELKIS JESSICA Not Available Start: 2024 End: 2024 ambulatory BELKIS JESSICA Not Available Start: 12-22-2023 End: 12-22-2023 ambulatory BELKIS JESSICA Not Available Start: 12-02-2023 End: 12-02-2023 ambulatory BELKIS JESSICA Not Available Start: 11-17-2023 End: 11-17-2023 ambulatory BELKIS JESSICA Not Available Start: 10-20-2023 End: 10-20-2023 ambulatory BELKIS JESSICA Not Available Start: 09-22-2023 End: 09-22-2023 ambulatory BELKIS LOPEZ Not Available Start: 09-22-2023 End: 09-22-2023 Patient encounter procedure Belkis Yateso DO Work Phone: [facility] Start: 09-22-2023 End: 09-22-2023 Periodic preventive med est patient 18-39 yrs Belkis Jessica DO Work Phone: [facility] Comment on above: Second trimester pre gnancy; Well woman exam with routine gynecological exam; Exposure to STD; Need for maternal serum alpha-protein (MSAFP) screening; Screening, , for anatomic survey; Heartburn Start: 09-22-2023 Clinisync Result Encounter Belkis Yateso DO Work Phone: [facility] Unsolicited Start: 09-22-2023 Clinisync Result Encounter Belkis Yateso DO Work Phone: [facility] Unsolicited [...] stick/tabl et rgnt non-auto w/o micrscp Belkis Jessica DO Work Phone: Start: 09-22-2023 IGP,APTIMA HPV,AGE GDLN Belkis Jessica DO Work Phone: Plan of Treatment Date Care Activity Detail Author Start: 10-20-2023 End: 10-20-2023 Patient encounter procedure 10/20/2023 3:10 PM EST Routine [facility] [address] [id number] JessicaBelkis, DO [address] [place] [address] [facility] Start: 09-22-2023 End: 09-22-2024 Alpha fetoprotein, maternal Alpha fetoprotein, maternal Lab Routine Second trimester Need for maternal serum alpha-protein (MSAFP) screening Expected: 09/22/2023 (Approximate), Expires: 09/22/2024 [facility] Comment on above: Expected: 09/22/2023 (Approximate), Expires: 09/22/2024 Start: 09-22-2023 End: 09-22-2024 US for US OB ANATOMY SINGLE W US OB CERVICAL LENGTH Imaging Routine Screening, , for anatomic survey Expected: 09/22/2023 (Approximate), Expires: 09/22/2024 [facility] Comment on above: Expected: 09/22/2023 (Approximate), Expires: 09/22/2024 CHLAMYDIA TRACHOMATI S (GENITO/STI) CHLAMYDIA TRACHOMATIS (GENITO/STI) Lab Routine Exposure to STD Ordered: 09/22/2023 [facility] Comment on above: Ordered: 09/22/2023 Cytology Cervical or vaginal smear or scraping study Pap Smear Pathology and Cytology Routine Well woman exam with routine gynecological exam Ordered: 09/22/2023 [facility] Comment on above: Ordered: 09/22/2023 Neisseria gonorrhoea e DNA [Presence] in Unspecified specimen by OC with probe detection Neisseria gonorrhea DNA probe, direct Lab Routine Exposure to STD Ordered: 09/22/2023 [facility] Comment on above: Ordered: 09/22/2023 SURESWAB(R) ADVANCED VAGINITIS PLUS, TMA SURESWAB(R) ADVANCED VAGINITIS PLUS, TMA Pathology and Cytology Routine Exposure to STD Ordered: 09/22/2023 [facility] Work Phone: Comment on above: Ordered: 09/22/2023 Payers Date Payer Category Payer Medicaid [facility] MEDICAID [place] [id number] 2021-Present [address] [place] [address] [id number] 2000 Unknown [id number] 2000 Unknown [id number] [id number] 2000 Unknown [id number] 2.16.840.1.124126.3.579.2.593 2000 Unknown [id number] 2.16.840.1.586139.3.579.2.593 2000 Unknown [id number] 2.16.840.1.739882.3.579.2.1259 2000 Unknown [id number] 2.16.840.1.541800.3.579.2.9 2000 Unknown [id number] 2.16.840.1.170842.3.579.2.1259 2000 Unknown [id number] 2.16.840.1.222333.3.579.2.1259 2000 Unknown [id number] 2.16.840.1.814114.3.579.2.1259 2000 Unknown [id number] 2.16.840.1.789699.3.579.2.1259 2000 Unknown [id number] 2.16.840.1.657818.3.579.2.9 2000 Unknown [id number] 2.16.840.1.022972.3.579.2.9 2000 Unknown [id number] 2.16.840.1.570809.3.579.2.125 2000 Unknown [id number] 2.16.840.1.197687.3.579.2.1259 1959 Unknown [id number] Social History Date Type Detail Facility [facility] Start: 05-22-2023 [facility] Start: 2000 Sex Assigned At Female [facility] Start: 07-03-2023 Gender identity Identifies as female gender (finding) [facility] Sexual orientation Not on file [facility] History of Present illness Narrative 09-22-2023 Nora Riggs, RADAR TECHNICIAN - 09/22/2023 3:20 PM EST Note Date [...] Problems Past Medical History: Diagnosis Date Asthma ([facility]) No family history on file. [...] nursing note reviewed. Exam conducted with a torpedo shooter present. Vitals: There is no height or [...] DATE CREATED AUTHOR 11/07/2022 [facility] DATE CREATED AUTHOR 'S ORGANIZ ATION 01/14/2024 [facility] EPIC Reason for Visit [...] BE BASED ON THE PRIMARY CLINICAL RECORDS. [employer] provides no warranty or guarantee of the accuracy or completeness of information in this document.
[2024-01-14 10:08] VITALS: BP 141/79; PULSE 104
== END 2024-01-14 10:40 | disposition home or self-care (01) ==
LOC: FBCO 07:50 → FBC 10:04
PROVIDERS: PCP Nurse Practitioner Family; Visit Provider Obstetrics & Gynecology
DX: O24.419 Gestational diabetes mellitus in pregnancy, unspecified control (principal)
CPT/HCPCS: 59025

== ENCOUNTER 2024-01-17 04:16 | Outpatient (OUT) | payer OTHER, SELFPAY ==
--- OUTSIDE RECORDS SUMMARY | 2024-01-17 04:19 | XMS_ITS | CCD ---
Author Organization [facility] Inform ion Partnership [facility] Care Team Providers Care Religious Education Teacher Name Role Phone JOSE ., LITA Admitting [...] (1 source) Ibuprofen Drug Allergy 01-15-2016 [facility] (2 sources) Ibuprofen Drug Allergy 07-10-2023 Unknown [facility] Healthcare Work Phone: Medications Current Medications Medication [...] GDLNon AGE GDLN ACOG TESTING Note . [facility] Comment on above: TESTS RESULT FLAG UN ITS REF RANGE LAB Clinician Provided Cytology Information Source.............Cervix Other.............. No. of containers..01 ThinPrep Vial Age Algo ACOG Bina... - 01 FLAG LEGEND: L-Low Normal,H-High Normal,LL-Alert Low,HH-Alert High <-Panic Low,>-Panic High,A-Abnormal,AA-Critical Abnormal Performed at: 01 =[facility] [place] [address] Lali Holloway MD, IGP, RFX APTIMA HPV ASCU Note . [facility] Comment on above: TESTS RESULT FLAG UN ITS REF RANGE LAB DIAGNOSIS: 02 NEGATIVE FOR INTRAEPITHELIAL LESION OR MALIGNANCY. Specimen adequacy: 02 Satisfactory for evaluation. No endocervical component is identified. An endocervical component is not commonly seen in the patient. Performed by: 02 Kieran Pickering, It Infrastructure Architect ([facility]) . 02 Note: Note 02 [...] Low,>-Panic High,A-Abnormal,AA-Critical Abnormal Performed at: [address] [facility] [address] [place] [address] Lali Holloway MD, Performed at: =G - [facility] [address] [id number] Pre Sales Technical Engineer: Lali Holloway MD, Phone: [phone] Performed at: - [facility] [id number] Pre Sales Technical Engineer: Lali Holloway MD, Phone: [phone] [facility] Urinalysis macro (dipstick) panel (U)on 09-22-2023 Bilirubin, UA Negative Negative - 4(70) +++ mg/dL [facility] Blood, UA Negative Negative - 50 Flash/mcL [facility] Clarity, UA Clear [facility] Color, UA Yellow [facility] Glucose, UA Negative Negative - 1999(110) ++++ mg/dL [facility] Interpretation and review of laboratory results Abnormal [facility] Ketones, UA Positive Negative - 160(16) ++++ mg/dL [facility] Leukocytes, UA Negative Negative - 500+++ Taylor/mcL [facility] Nitrite, UA Negative Negative - Positive [facility] pH, UA 5.5 5 - 9 [facility] Protein, UA Negative Negative - 1999(20) ++++ mg/dL [facility] Spec Grav, UA 1.020 1 - 1.03 [facility] Urobilinogen, UA 0.2 0.2 - 12 mg/dL [facility] COMPLIANCE DRUG SCREENon PDF . Normal [facility] Comment on above: Performed By: #### U RCX #### [facility] [address] [place] [address] Dr. Tisha Carr Summary FINAL Normal [facility] Comment on above: Result Comment: = [...] test is not intended to distinguish between ozglu-6-edowbinhmeafmdatvgff, the predominant form of THC in most herbal or marijuana-based products, and aqadi-1-delggmsunqjbaldhgcdx. Methylphenidate PRESENT UNEXPECTED Ritalinic Acid PRESENT UNEXPECTED [...] = Performed By: #### U RCX #### [facility] [address] [address] [address] Tisha Carr URIC ACID RAND URINEon 10-31 Uric Acid, Urine 67.3 mg/dL Normal Not Estab. [facility] Comment on above: Performed By: #### U RCX #### [facility] [address] [place] [address] Dr. Tisha Carr DRUG SCREEN RAPID (URINE)on 10-30-2022 AMP Negative Normal NEGATIVE [facility] Comment on above: Performed By: #### U RCX #### [facility] [address] [place] [address] Dr. Tisha Carr BAR Negative Normal NEGATIVE [facility] Comment on above: Performed By: #### U RCX #### [facility] [address] [place] [address] Dr. Tisha Carr BUP Negative Normal NEGATIVE [facility] Comment on above: Performed By: #### U RCX #### [facility] [address] [place] [address] Dr. Tisha Carr BZO Negative Normal NEGATIVE [facility] Comment on above: Performed By: #### U RCX #### [facility] [address] [place] [address] Dr. Tisha Carr SOCRATES Negative Normal NEGATIVE [facility] Comment on above: Performed By: #### U RCX #### [facility] [address] [place] [address] Dr. Tisha Carr CUT-OFFS SEE BELOW Normal [facility] Comment on above: Result Comment: AMP (Amphetamine): 500ng/mL, BAR (Barbituates): 200 ng/mL, BZO (Benzodiazepines): 150 ng/mL, BUP (Buprenorphine): 10 ng/mL, SOCRATES (Cocaine): 150 ng/mL, mAMP (Methamphetamine): 500 ng/mL, MTD (Methadone): 200 ng/mL, OPI (Opiates): 100 ng/mL, OXY (Oxycodone): 100 ng/mL, PCP (Phencyclidine): 25 ng/mL, PPX (Propoxyphene): 300 ng/mL, THC (Cannabinoids): 50 ng/mL, TCA (Trycyclic Antidepressants): 300 ng/mL Performed By: #### U RCX #### [facility] [address] [place] [address] Dr. Tisha Carr DRUG CUT HEADER DRUG CLASS TEST SYST EM CUT-OFF CONCENTRATIONS ARE FOLLOWS: Normal [facility] Comment on above: Performed By: #### U RCX #### [facility] [address] [place] [address] Dr. Tisha Carr mAMP Negative Normal NEGATIVE [facility] Comment on above: Performed By: #### U RCX #### [facility] [address] [place] [address] Dr. Tisha Carr MTD Negative Normal NEGATIVE [facility] Comment on above: Performed By: #### U RCX #### [facility] [address] [place] [address] Dr. Tisha Carr OPI Negative Normal NEGATIVE [facility] Comment on above: Performed By: #### U RCX #### [facility] [address] [place] [address] Dr. Tisha Carr OXY Negative Normal NEGATIVE [facility] Comment on above: Performed By: #### U RCX #### [facility] [address] [place] [address] Dr. Tisha Carr PCP Negative Normal NEGATIVE [facility] Comment on above: Performed By: #### U RCX #### [facility] [address] [place] [address] Dr. Tisha Carr PPX Negative Normal NEGATIVE [facility] Comment on above: Performed By: #### U RCX #### [facility] [address] [place] [address] Dr. Tisha Carr TCA Negative Normal NEGATIVE [facility] Comment on above: Performed By: #### U RCX #### [facility] [address] [place] [address] Dr. Tisha Carr THC Positive Abnormal NEGATIVE [facility] Comment on above: Performed By: #### U RCX #### [facility] [address] [place] [address] Dr. Tisha Carr CBC AUTO DIFFon 06-21-2022 BASO # 0.0 103/ul Normal 0.0-0.1 [facility] Comment on above: Performed By: #### U RCX #### [facility] [address] [address] [address] Tisha Carr Basophils/100 WBC (Bld) 0.2 % Normal 0.2-2.0 [facility] Comment on above: Performed By: #### U RCX #### [facility] [address] [place] [address] Dr. Tisha Carr EO # 0.0 103/ul Normal 0.0-0.7 [facility] Comment on above: Performed By: #### U RCX #### [facility] [address] [place] [address] Dr. Tisha Carr Eosinophils/100 WBC (Bld) 0.2 % Critically low 0.9-7.0 [facility] Comment on above: Performed By: #### U RCX #### [facility] [address] [place] [address] Dr. Tisha Carr Erythrocyte distribution width (RBC) [Ratio] 12.3 % Normal 11.0-15.0 [facility] Comment on above: Performed By: #### U RCX #### [facility] [address] [place] [address] Dr. Tisha Carr Hematocrit (Bld) [Volume fraction] 43.1 % Normal 36.0-48.0 [facility] Comment on above: Performed By: #### U RCX #### [facility] [address] [place] [address] Dr. Tisha Carr Hemoglobin (Bld) [Mass/Vol] 15.1 g/dL Normal 12.0-16.0 [facility] Comment on above: Performed By: #### U RCX #### [facility] [address] [place] [address] Dr. Tisha Carr IG # 0.06 10e3/ul Critically high 0.00-0.03 [facility] Comment on above: Performed By: #### U RCX #### [facility] [address] [address] [address] Tisha Carr IG % 0.5 % Normal 0.0-0.5 [facility] Comment on above: Performed By: #### U RCX #### [facility] [address] [address] [address] Tisha Carr LYMPH # 1.0 103/ul Critically low 1.2-3.8 [facility] Comment on above: Performed By: #### U RCX #### [facility] [address] [address] [address] Tisha Carr Lymphocytes/100 WBC (Bld) 8.2 % Critically low 20.5-60.0 [facility] Comment on above: Performed By: #### U RCX #### [facility] [address] [place] [address] Dr. Tisha Carr MANUAL DIFF REQ NO Normal [facility] Comment on above: Performed By: #### U RCX #### [facility] [address] [address] [address] Tisha Carr MCH (RBC) [Entitic mass] 30.3 pg Normal 26.7-34.0 [facility] Comment on above: Performed By: #### U RCX #### [facility] [address] [place] [address] Dr. Tisha Crar MCHC (RBC) [Mass/Vol] 35.0 g/dL Normal 29.9-35.2 [facility] Comment on above: Performed By: #### U RCX #### [facility] [address] [address] [address] Tisha Carr MCV (RBC) [Entitic vol] 86.4 fL Normal 81.0-99.0 [facility] Comment on above: Performed By: #### U RCX #### [facility] [address] [place] [address] Dr. Tisha Carr MONO # 0.8 103/ul Normal 0.3-0.8 [facility] Comment on above: Performed By: #### U RCX #### [facility] [address] [address] [address] Tisha Carr Monocytes/100 WBC (Bld) 6.0 % Normal 1.7-12.0 [facility] Comment on above: Performed By: #### U RCX #### [facility] [address] [address] [address] Tisha Carr NEUT # 10.8 103/ul Critically high 1.4-6.5 [facility] Comment on above: Performed By: #### U RCX #### [facility] [address] [address] [address] Tisha Carr Neutrophils/100 WBC (Bld) 84.9 % Critically high 43.0-75.0 [facility] Comment on above: Performed By: #### U RCX #### [facility] [address] [address] [address] Tihsa Carr Platelet mean volume (Bld) [Entitic vol] 10.8 fL Normal 9.5-13.5 [facility] Comment on above: Performed By: #### U RCX #### [facility] [address] [address] [address] Tisha Carr PLT 237 103/ul Normal 150-450 [facility] Comment on above: Performed By: #### U RCX #### [facility] [address] [address] [address] Tisha Carr RBC 4.99 106/ul Normal 4.20-5.40 [facility] Comment on above: Performed By: #### U RCX #### [facility] [address] [address] [address] Tisha Carr WBC 12.7 103/ul Critically high 4.0-11.0 [facility] Comment on above: Performed By: #### U RCX #### [facility] [address] [address] [address] Tisha Carr CRPon 06-21-2022 CRP 10.0 mg/dL Critically high <=1.0 [facility] Comment on above: Performed By: #### C RP, CMP, LIPA #### [facility] [address] [address] [address] Tisha Carr ER URINE PROFILEon 2 Bilirubin Ql (U) SMALL Abnormal NEGATIVE [facility] Comment on above: Performed By: #### YULY BRYANT, PREGU #### [facility] [address] [address] [address] Tisha Carr Clarity (U) CLEAR Normal CLEAR [facility] Comment on above: Performed By: #### YULY BRYANT, PREGU #### [facility] [address] [address] [address] Tisha Carr Color (U) YELLOW Normal YELLOW [facility] Comment on above: Performed By: #### YULY BRYANT, PREGU #### [facility] [address] [place] [address] Dr. Tisha Carr ERUREJI A micrscopic examina tion will be performed if indicated. Normal [facility] Comment on above: Performed By: #### YULY BRYANT, PREGU #### [facility] [address] [address] [address] Tisha Carr Glucose Ql (U) Negative Normal NEGATIVE [facility] Comment on above: Performed By: #### YULY BRYANT, PREGU #### [facility] [address] [address] [address] Tisha Carr Hemoglobin Ql (U) MODERATE Abnormal NEGATIVE [facility] Comment on above: Performed By: #### YULY BRYANT, PREGU #### [facility] [address] [address] [address] Tisha Carr Ketones Ql (U) 80 mg/dl Abnormal NEGATIVE [facility] Comment on above: Performed By: #### YULY BRYANT, PREGU #### [facility] [address] [place] [address] Dr. Tisha Carr LEUKOCYTES Negative Normal NEGATIVE [facility] Comment on above: Performed By: #### YULY BRYANT, PREGU #### [facility] [address] [address] [address] Tisha Carr Nitrite Ql (U) Negative Normal NEGATIVE [facility] Comment on above: Performed By: #### YULY BRYANT PREGU #### [facility] [address] [address] [address] Tisha Carr pH (U) 6.0 [pH] Normal 5-9 [facility] Comment on above: Performed By: #### YULY BRYANT PREGU #### [facility] [address] [address] [address] Tisha Carr SPEC GRAVITY 1.025 Normal 1.005-<=1.025 [facility] Comment on above: Performed By: #### YULY BRYANT PREGU #### [facility] [address] [place] [address] Dr. Tisha Carr UA PROTEIN TRACE Normal NEGATIVE/ TRACE [facility] Comment on above: Performed By: #### YULY BRYANT PREGU #### [facility] [address] [address] [address] Tisha Carr UR MICRO IND INDICATED Normal [facility] Comment on above: Performed By: #### YULY BRYANT PREGU #### [facility] [address] [address] [address] Tisha Carr Urobilinogen Qn (U) 1.0 {Alma'U}/dL Normal 0.2 - 1.0 [facility] Comment on above: Performed By: #### YULY BRYANT PREGU #### [facility] [address] [place] [address] Dr. Tisha Carr LACTATE/LACTIC ACIDon 2021 Lactate [Moles/Vol] 1.0 mmol/L Normal 0.4-1.9 [facility] Comment on above: Performed By: #### U RCX #### [facility] [address] [place] [address] Dr. Tisha Carr LIPASEon 06-21-2022 Lipase [Catalytic activity/Vol] 41.0 U/L Critically low 73.0-393.0 [facility] Comment on above: Performed By: #### C RP, CMP, LIPA #### [facility] [address] [address] [address] Tisha Carr URon 06-21-2022 , QUAL Negative Normal NEGATIVE [facility] Comment on above: Performed By: #### E RUR, UMICRO, PREGU #### [facility] [address] [address] [address] Tisha Carr PROF 14(COMP METB)on 022 Albumin [Mass/Vol] 4.0 g/dL Normal 3.4-5.0 [facility] Comment on above: Performed By: #### C RP, CMP, LIPA #### [facility] [address] [place] [address] Dr. Tisha Carr Albumin/Globulin [Mass ratio] 1.0 {ratio} Normal [facility] Comment on above: Performed By: #### C RP, CMP, LIPA #### [facility] [address] [place] [address] Dr. Tisha Carr ALP [Catalytic activity/Vol] 74 U/L Normal 46-116 [facility] Comment on above: Performed By: #### C RP, CMP, LIPA #### [facility] [address] [place] [address] Dr. Tisha Carr ALT [Catalytic activity/Vol] 33 U/L Normal 14-59 [facility] Comment on above: Performed By: #### C RP, CMP, LIPA #### [facility] [address] [place] [address] Dr. Tisha Carr Anion gap [Moles/Vol] 15.8 mmol/L Normal [facility] Comment on above: Performed By: #### C RP, CMP, LIPA #### [facility] [address] [place] [address] Dr. Tisha Carr AST [Catalytic activity/Vol] 17 U/L Normal 15-37 [facility] Comment on above: Performed By: #### C RP, CMP, LIPA #### [facility] [address] [address] [address] Tisha Carr Bilirubin [Mass/Vol] 1.3 mg/dL Critically high 0.2-1.0 [facility] Comment on above: Performed By: #### C RP, CMP, LIPA #### [facility] [address] [place] [address] Dr. Tisha Carr Calcium [Mass/Vol] 9.2 mg/dL Normal 8.5-10.1 [facility] Comment on above: Performed By: #### C RP, CMP, LIPA #### [facility] [address] [place] [address] Dr. Tisha Carr Chloride [Moles/Vol] 102 mmol/L Normal 98-107 [facility] Comment on above: Performed By: #### C RP, CMP, LIPA #### [facility] [address] [place] [address] Dr. Tisha Carr CO2 [Moles/Vol] 22.7 mmol/L Normal 21.0-32.0 [facility] Comment on above: Performed By: #### C RP, CMP, LIPA #### [facility] [address] [place] [address] Dr. Tisha Carr Creatinine [Mass/Vol] 0.70 mg/dL Normal 0.55-1.02 [facility] Comment on above: Performed By: #### C RP, CMP, LIPA #### [facility] [address] [place] [address] Dr. Tisha Carr EGFR-AF HONDURAN >60 Normal >=60 [facility] Comment on above: Performed By: #### C RP, CMP, LIPA #### [facility] [address] [place] [address] Dr. Tisha Carr EGFR-NON AF HONDURAN >60 Normal >=60 [facility] Comment on above: Performed By: #### C RP, CMP, LIPA #### [facility] [address] [place] [address] Dr. Tisha Carr Globulin (S) [Mass/Vol] 4.2 g/dL Normal [facility] Comment on above: Performed By: #### C RP, CMP, LIPA #### [facility] [address] [place] [address] Dr. Tisha Carr Glucose [Mass/Vol] 93 mg/dL Normal 74-106 [facility] Comment on above: Performed By: #### C RP, CMP, LIPA #### [facility] [address] [place] [address] Dr. Tisha Carr Potassium [Moles/Vol] 3.5 mmol/L Normal 3.5-5.1 [facility] Comment on above: Performed By: #### C RP, CMP, LIPA #### [facility] [address] [place] [address] Dr. Tisah Carr Protein [Mass/Vol] 8.2 g/dL Normal 6.4-8.2 [facility] Comment on above: Performed By: #### C RP, CMP, LIPA #### [facility] [address] [place] [address] Dr. iTsha Carr Sodium [Moles/Vol] 137 mmol/L Normal 136-145 [facility] Comment on above: Performed By: #### C RP, CMP, LIPA #### [facility] [address] [place] [address] Dr. Tisha Carr Urea nitrogen [Mass/Vol] 16.0 mg/dL Normal 7.0-18.0 [facility] Comment on above: Performed By: #### C RP, CMP, LIPA #### [facility] [address] [place] [address] Dr. Tisha Carr Urea nitrogen/Creatinin e [Mass ratio] 22.9 mg/mg Normal [facility] Comment on above: Performed By: #### C RP, CMP, LIPA #### [facility] [address] [place] [address] Dr. Tisha Carr URINE MICROSCOPIC ONLYon BACTERIA TRACE Abnormal NONE SEEN [facility] Comment on above: Performed By: #### E RUR, UMICRO, PREGU #### [facility] [address] [place] [address] Dr. Tisha Carr Bacteria identified Cx Nom (U) NOT INDICATED Normal [facility] Comment on above: Performed By: #### E RUR, UMICRO, PREGU #### [facility] [address] [place] [address] Dr. Tisha Carr CAST NONE SEEN Normal NONE SEEN [facility] Comment on above: Performed By: #### E RUR, UMICRO, PREGU #### [facility] [address] [address] [address] Tisha Carr Crystals LM Nom (Urine sed) NONE SEEN Normal NONE SEEN [facility] Comment on above: Performed By: #### E RUR, UMICRO, PREGU #### [facility] [address] [place] [address] Dr. Tisha Carr Epithelial cells LM Ql (Urine sed) MODERATE Abnormal NONE SEEN /RARE [facility] Comment on above: Performed By: #### E RUR, UMICRO, PREGU #### [facility] [address] [place] [address] Dr. Tisha Carr MUCOUS MODERATE Abnormal NONE SEEN [facility] Comment on above: Performed By: #### E RUR, UMICRO, PREGU #### [facility] [address] [place] [address] Dr. Tisha Carr RBC 0-2 Normal 0-2 [facility] Comment on above: Performed By: #### E RUR, UMICRO, PREGU #### [facility] [address] [place] [address] Dr. Tisha Carr WBC 0-2 Abnormal NONE SEEN [facility] Comment on above: Performed By: #### E RUR, UMICRO, PREGU #### [facility] [address] [place] [address] Dr. Tisha Carr PAP ACOG PANEL 2: 21 to 29on 04-11-2022 . . Normal [facility] Comment on above: Performed By: #### U RCX #### [facility] [address] [place] [address] Dr. Tisha Carr Age Gdln ACOG Testing - Normal [facility] Comment on above: Performed By: #### U RCX #### [facility] [address] [place] [address] Dr. Tisha Carr DIAGNOSIS: Comment Normal [facility] Comment on above: Result Comment: NEGA TIVE FOR INTRAEPITHELIAL LESION OR MALIGNANCY. FUNGAL ORGANISMS MORPHOLOGICALLY CONSISTENT WITH SHEREE SPECIES ARE PRESENT. Performed By: #### U RCX #### [facility] [address] [place] [address] Dr. Tisha Carr Methodology: Comment Normal [facility] Comment on above: Result Comment: This liquid based ThinPrep(R) pap test was screened with the use of an image guided system. Performed By: #### U RCX #### [facility] [address] [place] [address] Dr. Tisha Carr Note: Comment Normal [facility] Comment on above: Result Comment: The Pap smear is a screening test designed to aid in the detection of premalignant and malignant conditions of the uterine cervix. It is not a diagnostic procedure and should not be used as the sole means of detecting cervical cancer. Both false-positive and false-negative reports do occur. . Performed By: #### U RCX #### [facility] [address] [place] [address] Dr. Tisha Carr Performed by: Comment Normal [facility] Comment on above: Result Comment: Caleb Schaeffer, It Infrastructure Architect (ASCP) Performed By: #### U RCX #### [facility] [address] [place] [address] Dr. Tisha Carr Reflex Criteria: Comment Normal [facility] Comment on above: Result Comment: The HPV DNA reflex criteria were not met with this specimen result therefore, no HPV testing was performed. . Performed By: #### U RCX #### [facility] [address] [place] [address] Dr. Tisha Carr Specimen adequacy: Comment Normal [facility] Comment on above: Result Comment: Sati sfactory for evaluation. Endocervical and/or squamous metaplastic cells (endocervical component) are present. Performed By: #### U RCX #### [facility] [address] [place] [address] Dr. Tisha Carr CULTURE URINEon 01-08-2022 CULTURE [...] Trimethoprim/Sulfamethox azole <=20 S F Normal [facility] Comment on above: Performed By: #### U RCX #### [facility] [address] [place] [address] Dr. Tisha Carr Covid-19 PCR (CVDTB)on 12-23 SARS-CoV-2 (COVID-19) RNA OC+probe Ql (Unsp spec) Not detected Normal NOT DETECTED [facility] Comment on above: Result Comment: This test is not yet approved or cleared by the [place] FDA. When there are no FDA-approved or cleared tests available, and other criteria are met, FDA can make tests available under an emergency access mechanism called an Emergency Use Authorization (EUA). The EUA for this test is supported by the [place] of Health and Human Service's (HHS's) declaration [...] SARS-CoV-2. Performed By: #### C VDTBH #### [facility] [address] [place] [address] Dr. Tisha Carr ER URINE PROFILEon 2 Bilirubin Ql (U) MODERATE Abnormal NEGATIVE [facility] Comment on above: Performed By: #### YULY BRYANT, PREGU #### [facility] [address] [place] [address] Dr. Tisha Carr Clarity (U) CLEAR Normal CLEAR [facility] Comment on above: Performed By: #### YULY BRYANT, PREGU #### [facility] [address] [address] [address] Tisha Carr Color (U) DK. YELLOW Normal YELLOW [facility] Comment on above: Performed By: #### YULY BRYANT, PREGU #### [facility] [address] [place] [address] Dr. Tisha QUEZADA A micrscopic examina tion will be performed if indicated. Normal [facility] Comment on above: Performed By: #### YULY BRYANT, PREGU #### [facility] [address] [place] [address] Dr. Tisha Carr Glucose Ql (U) Negative Normal NEGATIVE The [facility] Comment on above: Performed By: #### YULY BRYANT, PREGU #### [facility] [address] [place] [address] Dr. Tisha Carr Hemoglobin Ql (U) Negative Normal NEGATIVE The [facility] Comment on above: Performed By: #### YULY BRYANT, PREGU #### [facility] [address] [place] [address] Dr. Tisha Carr Ketones Ql (U) >=80 Abnormal NEGATIVE The [facility] Comment on above: Performed By: #### LEIGH BRYANTICELLE, PREGU #### [facility] [address] [place] [address] Dr. Tisha Carr LEUKOCYTES TRACE Abnormal NEGATIVE [facility] Comment on above: Performed By: #### Sofi MEEKRYULY, PREGU #### [facility] [address] [place] [address] Dr. Tisha Carr Nitrite Ql (U) Negative Normal NEGATIVE The [facility] Comment on above: Performed By: #### YULY BRYANT PREGU #### [facility] [address] [place] [address] Dr. Tisha Carr pH (U) 6.0 [pH] Normal 5-9 [facility] Comment on above: Performed By: #### YULY BRYANT PREGU #### [facility] [address] [place] [address] Dr. Tisha Carr Protein (U) [Mass/Vol] 100 mg/dL Abnormal NEGATIVE/ TRACE [facility] Comment on above: Performed By: #### YULY BRYANT PREGU #### [facility] [address] [place] [address] Dr. Tisha Carr SPEC GRAVITY 1.025 Normal 1.005-<=1.025 [facility] Comment on above: Performed By: #### YULY BRYANT PREGU #### [facility] [address] [place] [address] Dr. Tisha Carr UR MICRO IND INDICATED Normal [facility] Comment on above: Performed By: #### YULY BRYANT PREGU #### [facility] [address] [place] [address] Dr. Tisha Carr Urobilinogen Qn (U) 1.0 {[place]'U}/dL Normal 0.2 - 1.0 [facility] Comment on above: Performed By: #### YULY BRYANT PREGU #### [facility] [address] [place] [address] Dr. Tisha Carr INFLUENZA A AND B [facility] 01[facility] SEE BELOW Normal [facility] Comment on above: Result Comment: Nega tive for Flu A protein angiten. Infection due to Flu A cannot be ruled out. Flu A angiten in the sample may be below the detection limit of the test. Performed By: #### U RCX #### [facility] [address] [place] [address] Dr. Tisha Carr INFLUBNEGH SEE BELOW Normal [facility] Comment on above: Result Comment: Nega tive for Flu B protein antigen. Infection due to Flu B cannot be ruled out. Flu B antigen in the sample may be below the detection limit of the test. Performed By: #### U RCX #### [facility] [address] [place] [address] Dr. Tisha Carr INFLUENZA A AG Negative Normal NEGATIVE SEE COMMENT [facility] Comment on above: Performed By: #### U RCX #### [facility] [address] [place] [address] Dr. Tisha Carr INFLUENZA B AG Negative Normal NEGATIVE SEE COMMENT [facility] Comment on above: Performed By: #### U RCX #### [facility] [address] [place] [address] Dr. Tisha Carr INTERNAL CONTROLS Within Normal Limits Normal Wi thin Normal Limits [facility] Comment on above: Performed By: #### U RCX #### [facility] [address] [place] [address] Dr. Tisha Carr URon 01-06-2022 , QUAL Negative Normal NEGATIVE The [facility] Comment on above: Performed By: #### E RUR, UMICRO, PREGU #### [facility] [address] [place] [address] Dr. Tisha Carr URINE MICROSCOPIC ONLYon BACTERIA SMALL Abnormal NONE SEEN [facility] Comment on above: Performed By: #### U RCX #### [facility] [address] [place] [address] Dr. Tisha Carr Bacteria identified Cx Nom (U) INDICATED Normal [facility] Comment on above: Performed By: #### U RCX #### [facility] [address] [place] [address] Dr. Tisha Carr CAST NONE SEEN Normal NONE SEEN [facility] Comment on above: Performed By: #### U RCX #### [facility] [address] [place] [address] Dr. Tisha Carr Crystals LM Nom (Urine sed) NONE SEEN Normal NONE SEEN [facility] Comment on above: Performed By: #### U RCX #### [facility] [address] [address] [address] Tisha Carr Epithelial cells LM Ql (Urine sed) MANY Abnormal NONE SEEN /RARE [facility] Comment on above: Performed By: #### U RCX #### [facility] [address] [address] [address] Tisha Carr MUCOUS LARGE Abnormal NONE SEEN [facility] Comment on above: Performed By: #### U RCX #### [facility] [address] [address] [address] Tisha Carr RBC NONE SEEN Abnormal 0-2 [facility] Comment on above: Performed By: #### U RCX #### [facility] [address] [place] [address] Dr. Tisha Carr WBC 5-10 Abnormal NONE SEEN [facility] Comment on above: Performed By: #### U RCX #### [facility] [address] [address] [address] Tisha Carr Vital Signs Date Time Vital Sign Value Performing Clinician Faci lity 09-22-2023 16:01-0500 Body weight 89.09 kg Belkis Jessica DO Work Phone: [facility] 09-22-2023 16:01-0500 Diastolic blood pressure 70 mm[Hg] Belkis Jessica DO Work Phone: [facility] 09-22-2023 16:01-0500 Systolic blood pressure 120 mm[Hg] Belkis Jessica DO Work Phone: [facility] Encounters Encounter Date Encounter Type [...] PM EST Routine [facility] [address] [place] [id number] JessicaBelkis, DO [address] [place] [address] [facility] Start: 09-22-2023 End: 09-22-2024 Alpha fetoprotein, maternal Alpha fetoprotein, maternal Lab Routine Second trimester Need for maternal serum alpha-protein (MSAFP) screening Expected: 09/22/2023 (Approximate), Expires: 09/22/2024 [facility] Comment on above: Expected: 09/22/2023 (Approximate), Expires: 09/22/2024 Start: 09-22-2023 End: 09-22-2024 US for US OB ANATOMY SINGLE W US OB CERVICAL LENGTH Imaging Routine Screening, , for anatomic survey Expected: 09/22/2023 (Approximate), Expires: 09/22/2024 [facility] Comment on above: Expected: 09/22/2023 (Approximate), Expires: 09/22/2024 CHLAMYDIA TRACHOMATI S (GENITO/STI) CHLAMYDIA TRACHOMATIS (GENITO/STI) Lab Routine Exposure to STD Ordered: 09/22/2023 [facility] Comment on above: Ordered: 09/22/2023 Cytology Cervical or vaginal smear or scraping study Pap Smear Pathology and Cytology Routine Well woman exam with routine gynecological exam Ordered: 09/22/2023 [facility] Comment on above: Ordered: 09/22/2023 Neisseria gonorrhoea e DNA [Presence] in Unspecified specimen by OC with probe detection Neisseria gonorrhea DNA probe, direct Lab Routine Exposure to STD Ordered: 09/22/2023 [facility] Comment on above: Ordered: 09/22/2023 SURESWAB(R) ADVANCED VAGINITIS PLUS, TMA SURESWAB(R) ADVANCED VAGINITIS PLUS, TMA Pathology and Cytology Routine Exposure to STD Ordered: 09/22/2023 [facility] Work Phone: Comment on above: Ordered: 09/22/2023 Payers Date Payer Category Payer Medicaid [facility] MEDICAID [place] MEDICA[place] [id number] 2021-Present [address] [place] [address] [id number] 2000 Unknown [id number] [id number] 2000 Unknown [id number] 2.16.840.1.750881.3.579.2.593 2000 Unknown [id number] 2.16.840.1.526134.3.579.2.593 2000 Unknown [id number] 2.16.840.1.739496.3.579.2.593 2000 Unknown [id number] 2.16.840.1.376979.3.579.2.1259 2000 Unknown [id number] 2.16.840.1.050075.3.579.2.9 2000 Unknown [id number] 2.16.840.1.523777.3.579.2.1259 2000 Unknown [id number] 2.16.840.1.774764.3.579.2.1259 2000 Unknown [id number] 2.16.840.1.199805.3.579.2.1259 2000 Unknown [id number] 2.16.840.1.649376.3.579.2.1259 2000 Unknown [id number] 2.16.840.1.150511.3.579.2.9 2000 Unknown [id number] 2.16.840.1.737758.3.579.2.9 2000 Unknown [id number] 2.16.840.1.495665.3.579.2.125 2000 Unknown [id number] 2.16.840.1.242419.3.579.2.1259 1959 Unknown [id number] Social History Date Type [facility] Start: 05-22-2023 [facility] Start: 2000 Sex Assigned At Female [facility] Start: 07-03-2023 Gender identity Identifies as female gender (finding) [facility] Sexual orientation Not on file [facility] History of Present illness Narrative 09-22-2023 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 Social History [...] nursing note reviewed. Exam conducted with a spring forger present. Vitals: There is no height or [...] DATE CREATED AUTHOR 11/07/2022 [facility] DATE CREATED AUTHOR 'S ORGANIZ ATION 01/14/2024 [facility] EPIC Reason for Visit [...] BE BASED ON THE PRIMARY CLINICAL RECORDS. [employer] provides no warranty or guarantee of the accuracy or completeness of information in this document.
--- NOTE | 2024-01-17 11:21 | US_ITS ---
[address] [address] Patient Name: FLORENCIA NEELY MRN: [id number] date: 2000 Sex: F Assigned Patient Location: [facility] Current Patient Location: Accession/Order Number: [id number] Exam Date: 01/17/2024 11:30 Report Date: 01/18/2024 04:14 At the request of: BELKIS BRAND Procedure: US OB BPP w non-stress EXAMINATION: US OB BPP w non-stress HISTORY: Insulin controlled gestational diabetes COMPARISON: Ultrasound OB biophysical 01/10/2024 TECHNIQUE: Ultrasound biophysical profile was performed in the radiology department. BREATHING MOVEMENTS: 2.0 GROSS BODY MOVEMENTS: 2.0 TONE: 2.0 QUALITATIVE AMNIOTIC FLUID VOLUME: 2.0 PRESENTATION: CEPHALIC HEART RATE: 138.5 bpm bpm. AMNIOTIC FLUID VOLUME: 15.3 cm GESTATIONAL AGE: 36 weeks 2 days CONCLUSION: Total biophysical profile score 8.0. Electronically authenticated by: MERVAT LANG Date: 01/18/2024 04:14
[2024-01-17 11:41] VITALS: BP 134/85; PULSE 75
== END 2024-01-17 12:08 | disposition home or self-care (01) ==
LOC: US 11:04 → FBC 11:09
PROVIDERS: PCP Nurse Practitioner Family; Visit Provider Obstetrics & Gynecology
DX: O24.414 Gestational diabetes mellitus in pregnancy, insulin controlled (principal); Z3A.36 36 weeks gestation of pregnancy
CPT/HCPCS: 76818

== ENCOUNTER 2024-01-21 07:20 | Outpatient (OUT) | payer OTHER, SELFPAY ==
--- OUTSIDE RECORDS SUMMARY | 2024-01-21 07:46 | XMS_ITS | CCD ---
Author Organization [facility] Inform ion Partnership [facility] Care Team Providers Care Manager Hair Name Role Phone JOSE ., LITA Admitting [...] (1 source) Ibuprofen Drug Allergy 01-15-2016 [facility] Repository (2 sources) Ibuprofen Drug Allergy 07-10-2023 Unknown [facility] Healthcare Work Phone: Medications Current Medications [...] GDLNon AGE GDLN ACOG TESTING Note . [facility] Comment on above: TESTS RESULT FLAG UN ITS REF RANGE LAB Clinician Provided Cytology Information Source.............Cervix Other.............. No. of containers..01 ThinPrep Vial Age Algo ACOG Bina... - 01 FLAG LEGEND: L-Low Normal,H-High Normal,LL-Alert Low,HH-Alert High <-Panic Low,>-Panic High,A-Abnormal,AA-Critical Abnormal Performed at: 01 =[facility] [place] [address] Lali Holloway MD, IGP, RFX APTIMA HPV ASCU Note . [facility] Comment on above: TESTS RESULT FLAG UN ITS REF RANGE LAB DIAGNOSIS: 02 NEGATIVE FOR INTRAEPITHELIAL LESION OR MALIGNANCY. Specimen adequacy: 02 Satisfactory for evaluation. No endocervical component is identified. An endocervical component is not commonly seen in the patient. Performed by: 02 Kieran Pickering, Frame Table Operator Helper ([facility]) . 02 Note: Note 02 The Pap [...] Low,>-Panic High,A-Abnormal,AA-Critical Abnormal Performed at: [address] [facility] [address] [place] [address] Lali Holloway MD, Performed at: =G - [facility] [address] [id number] Car Unloader Helper: Lali Holloway MD, Phone: [phone] Performed at: - [facility] [id number] Car Unloader Helper: Lali Holloway MD, Phone: [phone] [facility] Urinalysis macro (dipstick) panel (U)on 09-22-2023 Bilirubin, UA Negative Negative - 4(70) +++ mg/dL [facility] Blood, UA Negative Negative - 50 Flash/mcL [facility] Clarity, UA Clear [facility] Color, UA Yellow [facility] Glucose, UA Negative Negative - 1999(110) ++++ mg/dL [facility] Interpretation and review of laboratory results Abnormal [facility] Ketones, UA Positive Negative - 160(16) ++++ mg/dL [facility] Leukocytes, UA Negative Negative - 500+++ Taylor/mcL [facility] Nitrite, UA Negative Negative - Positive [facility] pH, UA 5.5 5 - 9 [facility] Protein, UA Negative Negative - 1999(20) ++++ mg/dL [facility] Spec Grav, UA 1.020 1 - 1.03 [facility] Urobilinogen, UA 0.2 0.2 - 12 mg/dL [facility] COMPLIANCE DRUG SCREENon PDF . Normal [facility] Comment on above: Performed By: #### U RCX #### [facility] [address] [place] [address] Dr. Tisha Carr Summary FINAL Normal [facility] Comment on above: Result Comment: = [...] test is not intended to distinguish between yksbg-[id number], the predominant form of THC in most herbal or marijuana-based products, and [id number]. Methylphenidate PRESENT UNEXPECTED Ritalinic Acid PRESENT UNEXPECTED [...] = Performed By: #### U RCX #### [facility] [address] [address] [address] Tisha Carr URIC ACID RAND URINEon 10-31 Uric Acid, Urine 67.3 mg/dL Normal Not Estab. [facility] Comment on above: Performed By: #### U RCX #### [facility] [address] [place] [address] Dr. Tisha Carr DRUG SCREEN RAPID (URINE)on 10-30-2022 AMP Negative Normal NEGATIVE [facility] Comment on above: Performed By: #### U RCX #### [facility] [address] [place] [address] Dr. Tisha Carr BAR Negative Normal NEGATIVE [facility] Comment on above: Performed By: #### U RCX #### [facility] [address] [place] [address] Dr. Tisha Carr BUP Negative Normal NEGATIVE [facility] Comment on above: Performed By: #### U RCX #### [facility] [address] [place] [address] Dr. Tisha Carr BZO Negative Normal NEGATIVE [facility] Comment on above: Performed By: #### U RCX #### [facility] [address] [place] [address] Dr. Tisha Carr SOCRATES Negative Normal NEGATIVE [facility] Comment on above: Performed By: #### U RCX #### [facility] [address] [place] [address] Dr. Tisha Carr CUT-OFFS SEE BELOW Normal [facility] Comment on above: Result Comment: AMP [...] ng/mL Performed By: #### U RCX #### [facility] [address] [place] [address] Dr. Tisha Carr DRUG CUT HEADER DRUG CLASS TEST SYST EM CUT-OFF CONCENTRATIONS ARE FOLLOWS: Normal [facility] Comment on above: Performed By: #### U RCX #### [facility] [address] [place] [address] Dr. Tisha Carr mAMP Negative Normal NEGATIVE [facility] Comment on above: Performed By: #### U RCX #### [facility] [address] [place] [address] Dr. Tisha Carr MTD Negative Normal NEGATIVE [facility] Comment on above: Performed By: #### U RCX #### [facility] [address] [place] [address] Dr. Tisha Carr OPI Negative Normal NEGATIVE [facility] Comment on above: Performed By: #### U RCX #### [facility] [address] [place] [address] Dr. Tisha Carr OXY Negative Normal NEGATIVE [facility] Comment on above: Performed By: #### U RCX #### [facility] [address] [place] [address] Dr. Tisha Carr PCP Negative Normal NEGATIVE [facility] Comment on above: Performed By: #### U RCX #### [facility] [address] [place] [address] Dr. Tisha Carr PPX Negative Normal NEGATIVE [facility] Comment on above: Performed By: #### U RCX #### [facility] [address] [place] [address] Dr. Tisha Carr TCA Negative Normal NEGATIVE [facility] Comment on above: Performed By: #### U RCX #### [facility] [address] [place] [address] Dr. Tisha Carr THC Positive Abnormal NEGATIVE [facility] Comment on above: Performed By: #### U RCX #### [facility] [address] [place] [address] Dr. Tisha Carr CBC AUTO DIFFon 06-21-2022 BASO # 0.0 103/ul Normal 0.0-0.1 [facility] Comment on above: Performed By: #### U RCX #### [facility] [address] [address] [address] Tisha Carr Basophils/100 WBC (Bld) 0.2 % Normal 0.2-2.0 [facility] Comment on above: Performed By: #### U RCX #### [facility] [address] [place] [address] Dr. Tisha Carr EO # 0.0 103/ul Normal 0.0-0.7 [facility] Comment on above: Performed By: #### U RCX #### [facility] [address] [place] [address] Dr. Tisha Carr Eosinophils/100 WBC (Bld) 0.2 % Critically low 0.9-7.0 [facility] Comment on above: Performed By: #### U RCX #### [facility] [address] [place] [address] Dr. Tisha Carr Erythrocyte distribution width (RBC) [Ratio] 12.3 % Normal 11.0-15.0 [facility] Comment on above: Performed By: #### U RCX #### [facility] [address] [place] [address] Dr. Tisha Carr Hematocrit (Bld) [Volume fraction] 43.1 % Normal 36.0-48.0 [facility] Comment on above: Performed By: #### U RCX #### [facility] [address] [place] [address] Dr. Tisha Carr Hemoglobin (Bld) [Mass/Vol] 15.1 g/dL Normal 12.0-16.0 [facility] Comment on above: Performed By: #### U RCX #### [facility] [address] [place] [address] Dr. Tisha Carr IG # 0.06 10e3/ul Critically high 0.00-0.03 [facility] Comment on above: Performed By: #### U RCX #### [facility] [address] [address] [address] Tisha Carr IG % 0.5 % Normal 0.0-0.5 [facility] Comment on above: Performed By: #### U RCX #### [facility] [address] [address] [address] Tisha Carr LYMPH # 1.0 103/ul Critically low 1.2-3.8 [facility] Comment on above: Performed By: #### U RCX #### [facility] [address] [address] [address] Tisha Carr Lymphocytes/100 WBC (Bld) 8.2 % Critically low 20.5-60.0 [facility] Comment on above: Performed By: #### U RCX #### [facility] [address] [place] [address] Dr. Tisha Carr MANUAL DIFF REQ NO Normal [facility] Comment on above: Performed By: #### U RCX #### [facility] [address] [address] [address] Tisha Carr MCH (RBC) [Entitic mass] 30.3 pg Normal 26.7-34.0 [facility] Comment on above: Performed By: #### U RCX #### [facility] [address] [place] [address] Dr. Tisha Carr MCHC (RBC) [Mass/Vol] 35.0 g/dL Normal 29.9-35.2 [facility] Comment on above: Performed By: #### U RCX #### [facility] [address] [address] [address] Tisha Carr MCV (RBC) [Entitic vol] 86.4 fL Normal 81.0-99.0 [facility] Comment on above: Performed By: #### U RCX #### [facility] [address] [place] [address] Dr. Tisha Carr MONO # 0.8 103/ul Normal 0.3-0.8 [facility] Comment on above: Performed By: #### U RCX #### [facility] [address] [address] [address] Tisha Carr Monocytes/100 WBC (Bld) 6.0 % Normal 1.7-12.0 [facility] Comment on above: Performed By: #### U RCX #### [facility] [address] [address] [address] Tisha Carr NEUT # 10.8 103/ul Critically high 1.4-6.5 [facility] Comment on above: Performed By: #### U RCX #### [facility] [address] [address] [address] Tisha Carr Neutrophils/100 WBC (Bld) 84.9 % Critically high 43.0-75.0 [facility] Comment on above: Performed By: #### U RCX #### [facility] [address] [address] [address] Tisha Carr Platelet mean volume (Bld) [Entitic vol] 10.8 fL Normal 9.5-13.5 [facility] Comment on above: Performed By: #### U RCX #### [facility] [address] [address] [address] Tisha Carr PLT 237 103/ul Normal 150-450 [facility] Comment on above: Performed By: #### U RCX #### [facility] [address] [address] [address] Tisha Carr RBC 4.99 106/ul Normal 4.20-5.40 [facility] Comment on above: Performed By: #### U RCX #### [facility] [address] [address] [address] Tisha Carr WBC 12.7 103/ul Critically high 4.0-11.0 [facility] Comment on above: Performed By: #### U RCX #### [facility] [address] [address] [address] Tisha Carr CRPon 06-21-2022 CRP 10.0 mg/dL Critically high <=1.0 [facility] Comment on above: Performed By: #### C RP, CMP, LIPA #### [facility] [address] [address] [address] Tisha Carr ER URINE PROFILEon 2 Bilirubin Ql (U) SMALL Abnormal NEGATIVE [facility] Comment on above: Performed By: #### YULY BRYANT, PREGU #### [facility] [address] [address] [address] Tisha Carr Clarity (U) CLEAR Normal CLEAR [facility] Comment on above: Performed By: #### YULY BRYANT, PREGU #### [facility] [address] [address] [address] Tisha Carr Color (U) YELLOW Normal YELLOW [facility] Comment on above: Performed By: #### YULY BRYANT, PREGU #### [facility] [address] [place] [address] Dr. Tisha Carr ERUREJI A micrscopic examina tion will be performed if indicated. Normal [facility] Comment on above: Performed By: #### YULY BRYANT, PREGU #### [facility] [address] [address] [address] Tisha Carr Glucose Ql (U) Negative Normal NEGATIVE [facility] Comment on above: Performed By: #### YULY BRYANT, PREGU #### [facility] [address] [address] [address] Tisha Carr Hemoglobin Ql (U) MODERATE Abnormal NEGATIVE [facility] Comment on above: Performed By: #### YULY BRYANT, PREGU #### [facility] [address] [address] [address] Tisha Carr Ketones Ql (U) 80 mg/dl Abnormal NEGATIVE [facility] Comment on above: Performed By: #### YULY BRYANT, PREGU #### [facility] [address] [place] [address] Dr. Tisha Carr LEUKOCYTES Negative Normal NEGATIVE [facility] Comment on above: Performed By: #### YULY BRYANT, PREGU #### [facility] [address] [address] [address] Tisha Carr Nitrite Ql (U) Negative Normal NEGATIVE [facility] Comment on above: Performed By: #### YULY BRYANT PREGU #### [facility] [address] [address] [address] Tisha Carr pH (U) 6.0 [pH] Normal 5-9 [facility] Comment on above: Performed By: #### YULY BRYANT PREGU #### [facility] [address] [address] [address] Tisha Carr SPEC GRAVITY 1.025 Normal 1.005-<=1.025 [facility] Comment on above: Performed By: #### YULY BRYANT PREGU #### [facility] [address] [place] [address] Dr. Tisha Carr UA PROTEIN TRACE Normal NEGATIVE/ TRACE [facility] Comment on above: Performed By: #### YULY BRYANT PREGU #### [facility] [address] [address] [address] Tisha Carr UR MICRO IND INDICATED Normal [facility] Comment on above: Performed By: #### YULY BRYANT PREGU #### [facility] [address] [address] [address] Tisha Carr Urobilinogen Qn (U) 1.0 {Alma'U}/dL Normal 0.2 - 1.0 [facility] Comment on above: Performed By: #### YULY BRYANT PREGU #### [facility] [address] [place] [address] Dr. Tisha Carr LACTATE/LACTIC ACIDon 2021 Lactate [Moles/Vol] 1.0 mmol/L Normal 0.4-1.9 [facility] Comment on above: Performed By: #### U RCX #### [facility] [address] [place] [address] Dr. Tisha Carr LIPASEon 06-21-2022 Lipase [Catalytic activity/Vol] 41.0 U/L Critically low 73.0-393.0 [facility] Comment on above: Performed By: #### C RP, CMP, LIPA #### [facility] [address] [address] [address] Tisha Carr URon 06-21-2022 , QUAL Negative Normal NEGATIVE [facility] Comment on above: Performed By: #### E RUR, UMICRO, PREGU #### [facility] [address] [address] [address] Tisha Carr PROF 14(COMP METB)on 022 Albumin [Mass/Vol] 4.0 g/dL Normal 3.4-5.0 [facility] Comment on above: Performed By: #### C RP, CMP, LIPA #### [facility] [address] [place] [address] Dr. Tisha Carr Albumin/Globulin [Mass ratio] 1.0 {ratio} Normal [facility] Comment on above: Performed By: #### C RP, CMP, LIPA #### [facility] [address] [place] [address] Dr. Tisha Carr ALP [Catalytic activity/Vol] 74 U/L Normal 46-116 [facility] Comment on above: Performed By: #### C RP, CMP, LIPA #### [facility] [address] [place] [address] Dr. Tisha Carr ALT [Catalytic activity/Vol] 33 U/L Normal 14-59 [facility] Comment on above: Performed By: #### C RP, CMP, LIPA #### [facility] [address] [place] [address] Dr. Tisha Carr Anion gap [Moles/Vol] 15.8 mmol/L Normal [facility] Comment on above: Performed By: #### C RP, CMP, LIPA #### [facility] [address] [place] [address] Dr. Tisha Carr AST [Catalytic activity/Vol] 17 U/L Normal 15-37 [facility] Comment on above: Performed By: #### C RP, CMP, LIPA #### [facility] [address] [address] [address] Tisha Carr Bilirubin [Mass/Vol] 1.3 mg/dL Critically high 0.2-1.0 [facility] Comment on above: Performed By: #### C RP, CMP, LIPA #### [facility] [address] [place] [address] Dr. Tisha Carr Calcium [Mass/Vol] 9.2 mg/dL Normal 8.5-10.1 [facility] Comment on above: Performed By: #### C RP, CMP, LIPA #### [facility] [address] [place] [address] Dr. Tisha Carr Chloride [Moles/Vol] 102 mmol/L Normal 98-107 [facility] Comment on above: Performed By: #### C RP, CMP, LIPA #### [facility] [address] [place] [address] Dr. Tisha Carr CO2 [Moles/Vol] 22.7 mmol/L Normal 21.0-32.[address] [facility] Comment on above: Performed By: #### C RP, CMP, LIPA #### [facility] [address] [place] [address] Dr. Tisha Carr Creatinine [Mass/Vol] 0.70 mg/dL Normal 0.55-1.02 [facility] Comment on above: Performed By: #### C RP, CMP, LIPA #### [facility] [address] [place] [address] Dr. Tisha Carr EGFR-AF CITIZEN OF [place] >60 Normal >=60 [facility] Comment on above: Performed By: #### C RP, CMP, LIPA #### [facility] [address] [place] [address] Dr. Tisha Carr EGFR-NON AF CITIZEN OF [place] >60 Normal >=60 [facility] Comment on above: Performed By: #### C RP, CMP, LIPA #### [facility] [address] [place] [address] Dr. Tisha Carr Globulin (S) [Mass/Vol] 4.2 g/dL Normal [facility] Comment on above: Performed By: #### C RP, CMP, LIPA #### [facility] [address] [place] [address] Dr. Tisha Carr Glucose [Mass/Vol] 93 mg/dL Normal 74-106 [facility] Comment on above: Performed By: #### C RP, CMP, LIPA #### [facility] [address] [place] [address] Dr. Tisha Carr Potassium [Moles/Vol] 3.5 mmol/L Normal 3.5-5.1 [facility] Comment on above: Performed By: #### C RP, CMP, LIPA #### [facility] [address] [place] [address] Dr. Tisha Carr Protein [Mass/Vol] 8.2 g/dL Normal 6.4-8.2 [facility] Comment on above: Performed By: #### C RP, CMP, LIPA #### [facility] [address] [place] [address] Dr. Tisha Carr Sodium [Moles/Vol] 137 mmol/L Normal 136-145 [facility] Comment on above: Performed By: #### C RP, CMP, LIPA #### [facility] [address] [place] [address] Dr. Tisha Carr Urea nitrogen [Mass/Vol] 16.0 mg/dL Normal 7.0-18.0 [facility] Comment on above: Performed By: #### C RP, CMP, LIPA #### [facility] [address] [place] [address] Dr. Tisha Carr Urea nitrogen/Creatinin e [Mass ratio] 22.9 mg/mg Normal [facility] Comment on above: Performed By: #### C RP, CMP, LIPA #### [facility] [address] [place] [address] Dr. Tisha Carr URINE MICROSCOPIC ONLYon BACTERIA TRACE Abnormal NONE SEEN [facility] Comment on above: Performed By: #### E RUR, UMICRO, PREGU #### [facility] [address] [place] [address] Dr. Tisha Carr Bacteria identified Cx Nom (U) NOT INDICATED Normal [facility] Comment on above: Performed By: #### E RUR, UMICRO, PREGU #### [facility] [address] [place] [address] Dr. Tisha Carr CAST NONE SEEN Normal NONE SEEN [facility] Comment on above: Performed By: #### E RUR, UMICRO, PREGU #### [facility] [address] [address] [address] Tisha Carr Crystals LM Nom (Urine sed) NONE SEEN Normal NONE SEEN [facility] Comment on above: Performed By: #### E RUR, UMICRO, PREGU #### [facility] [address] [place] [address] Dr. Tisha Carr Epithelial cells LM Ql (Urine sed) MODERATE Abnormal NONE SEEN /RARE [facility] Comment on above: Performed By: #### E RUR, UMICRO, PREGU #### [facility] [address] [place] [address] Dr. Tisha Carr MUCOUS MODERATE Abnormal NONE SEEN [facility] Comment on above: Performed By: #### E RUR, UMICRO, PREGU #### [facility] [address] [place] [address] Dr. Tisha Carr RBC 0-2 Normal 0-2 [facility] Comment on above: Performed By: #### E RUR, UMICRO, PREGU #### [facility] [address] [place] [address] Dr. Tisha Carr WBC 0-2 Abnormal NONE SEEN [facility] Comment on above: Performed By: #### E RUR, UMICRO, PREGU #### [facility] [address] [place] [address] Dr. Tisha Carr PAP ACOG PANEL 2: 21 to 29on 04-11-2022 . . Normal [facility] Comment on above: Performed By: #### U RCX #### [facility] [address] [place] [address] Dr. Tisha Carr Age Gdln ACOG Testing - Normal [facility] Comment on above: Performed By: #### U RCX #### [facility] [address] [place] [address] Dr. Tisha Carr DIAGNOSIS: Comment Normal [facility] Comment on above: Result Comment: NEGA TIVE FOR INTRAEPITHELIAL LESION OR MALIGNANCY. FUNGAL ORGANISMS MORPHOLOGICALLY CONSISTENT WITH SHEREE SPECIES ARE PRESENT. Performed By: #### U RCX #### [facility] [address] [place] [address] Dr. Tisha Carr Methodology: Comment Normal [facility] Comment on above: Result Comment: This liquid based ThinPrep(R) pap test was screened with the use of an image guided system. Performed By: #### U RCX #### [facility] [address] [place] [address] Dr. Tisha Carr Note: Comment Normal St. [...] . Performed By: #### U RCX #### [facility] [address] [place] [address] Dr. Tisha Carr Performed by: Comment Normal [facility] Comment on above: Result Comment: Caleb Schaeffer, Frame Table Operator Helper (ASCP) Performed By: #### U RCX #### [facility] [address] [place] [address] Dr. Tisha Carr Reflex Criteria: Comment Normal [facility] Comment on above: Result Comment: The HPV DNA reflex criteria were not met with this specimen result therefore, no HPV testing was performed. . Performed By: #### U RCX #### [facility] [address] [place] [address] Dr. Tisha Carr Specimen adequacy: Comment Normal [facility] Comment on above: Result Comment: Sati sfactory for evaluation. Endocervical and/or squamous metaplastic cells (endocervical component) are present. Performed By: #### U RCX #### [facility] [address] [place] [address] Dr. Tisha Carr CULTURE URINEon 01-08-2022 CULTURE [...] Trimethoprim/Sulfamethox azole <=20 S F Normal [facility] Comment on above: Performed By: #### U RCX #### [facility] [address] [place] [address] Dr. Tisha Carr Covid-19 PCR (CVDTB)on 12-23 SARS-CoV-2 (COVID-19) RNA OC+probe Ql (Unsp spec) Not detected Normal NOT DETECTED [facility] Comment on above: Result Comment: This test is not yet approved or cleared by the [place] FDA. When there are no FDA-approved or cleared tests available, and other criteria are met, FDA can make tests available under an emergency access mechanism called an Emergency Use Authorization (EUA). The EUA for this test is supported by the [place] of Health and Human Service's (HHS's) declaration [...] SARS-CoV-2. Performed By: #### C VDTBH #### [facility] [address] [place] [address] Dr. Tisha Carr ER URINE PROFILEon 2 Bilirubin Ql (U) MODERATE Abnormal NEGATIVE [facility] Comment on above: Performed By: #### YULY BRYANT, PREGU #### [facility] [address] [place] [address] Dr. Tisha Carr Clarity (U) CLEAR Normal CLEAR [facility] Comment on above: Performed By: #### YULY BRYANT, PREGU #### [facility] [address] [address] [address] Tisha Carr Color (U) DK. YELLOW Normal YELLOW The [facility] Comment on above: Performed By: #### YULY BRYANT, PREGU #### [facility] [address] [place] [address] Dr. Tisha QUEZADA A micrscopic examina tion will be performed if indicated. Normal [facility] Comment on above: Performed By: #### YULY BRYANT, PREGU #### [facility] [address] [place] [address] Dr. Tisha Carr Glucose Ql (U) Negative Normal NEGATIVE [facility] Comment on above: Performed By: #### YULY BRYANT, PREGU #### [facility] [address] [place] [address] Dr. Tisha Carr Hemoglobin Ql (U) Negative Normal NEGATIVE [facility] Comment on above: Performed By: #### YULY BRYANT, PREGU #### [facility] [address] [place] [address] Dr. Tisha Carr Ketones Ql (U) >=80 Abnormal NEGATIVE [facility] Comment on above: Performed By: #### LEIGH BRYANTICELLE, PREGU #### [facility] [address] [place] [address] Dr. Tisha Carr LEUKOCYTES TRACE Abnormal NEGATIVE [facility] Comment on above: Performed By: #### Sofi MEEKRYULY, PREGU #### [facility] [address] [place] [address] Dr. Tisha Carr Nitrite Ql (U) Negative Normal NEGATIVE [facility] Comment on above: Performed By: #### YULY BRYANT PREGU #### [facility] [address] [place] [address] Dr. Tisha Carr pH (U) 6.0 [pH] Normal 5-9 [facility] Comment on above: Performed By: #### YULY BRYANT PREGU #### [facility] [address] [place] [address] Dr. Tisha Carr Protein (U) [Mass/Vol] 100 mg/dL Abnormal NEGATIVE/ TRACE [facility] Comment on above: Performed By: #### YULY BRYANT PREGU #### [facility] [address] [place] [address] Dr. Tisha Carr SPEC GRAVITY 1.025 Normal 1.005-<=1.025 [facility] Comment on above: Performed By: #### YULY BRYANT PREGU #### [facility] [address] [place] [address] Dr. Tisha Carr UR MICRO IND INDICATED Normal [facility] Comment on above: Performed By: #### YULY BRYANT PREGU #### [facility] [address] [place] [address] Dr. Tisha Carr Urobilinogen Qn (U) 1.0 {Alma'U}/dL Normal 0.2 - 1.0 [facility] Comment on above: Performed By: #### YULY BRYANT PREGU #### [facility] [address] [place] [address] Dr. Tisha Carr INFLUENZA A AND B [facility] Normal [facility] Comment on above: Result Comment: Nega tive for Flu A protein angiten. Infection due to Flu A cannot be ruled out. Flu A angiten in the sample may be below the detection limit of the test. Performed By: #### U RCX #### [facility] [address] [place] [address] Dr. Tisha Carr INFLUBNEGH SEE BELOW Normal [facility] Comment on above: Result Comment: Nega tive for Flu B protein antigen. Infection due to Flu B cannot be ruled out. Flu B antigen in the sample may be below the detection limit of the test. Performed By: #### U RCX #### [facility] [address] [place] [address] Dr. Tisha Carr INFLUENZA A AG Negative Normal NEGATIVE SEE COMMENT [facility] Comment on above: Performed By: #### U RCX #### [facility] [address] [place] [address] Dr. Tisha Carr INFLUENZA B AG Negative Normal NEGATIVE SEE COMMENT [facility] Comment on above: Performed By: #### U RCX #### [facility] [address] [place] [address] Dr. Tisha Carr INTERNAL CONTROLS Within Normal Limits Normal Wi thin Normal Limits [facility] Comment on above: Performed By: #### U RCX #### [facility] [address] [place] [address] Dr. Tisha Carr URon 01-06-2022 , QUAL Negative Normal NEGATIVE [facility] Comment on above: Performed By: #### E RUR, UMICRO, PREGU #### [facility] [address] [place] [address] Dr. Tisha Carr URINE MICROSCOPIC ONLYon BACTERIA SMALL Abnormal NONE SEEN [facility] Comment on above: Performed By: #### U RCX #### [facility] [address] [place] [address] Dr. Tisha Carr Bacteria identified Cx Nom (U) INDICATED Normal [facility] Comment on above: Performed By: #### U RCX #### [facility] [address] [place] [address] Dr. Tisha Carr CAST NONE SEEN Normal NONE SEEN [facility] Comment on above: Performed By: #### U RCX #### [facility] [address] [place] [address] Dr. Tisha Carr Crystals LM Nom (Urine sed) NONE SEEN Normal NONE SEEN [facility] Comment on above: Performed By: #### U RCX #### [facility] [address] [address] [address] Tisha Carr Epithelial cells LM Ql (Urine sed) MANY Abnormal NONE SEEN /RARE [facility] Comment on above: Performed By: #### U RCX #### [facility] [address] [address] [address] Tisha Carr MUCOUS LARGE Abnormal NONE SEEN [facility] Comment on above: Performed By: #### U RCX #### [facility] [address] [address] [address] Tisha Carr RBC NONE SEEN Abnormal 0-2 [facility] Comment on above: Performed By: #### U RCX #### [facility] [address] [place] [address] Dr. Tisha Carr WBC 5-10 Abnormal NONE SEEN [facility] Comment on above: Performed By: #### U RCX #### [facility] [address] [address] [address] Tisha Carr Vital Signs Date Time Vital Sign Value Performing Clinician Faci lity 09-22-2023 16:01-0500 Body weight 89.09 kg Belkis Jessica DO Work Phone: [facility] 09-22-2023 16:01-0500 Diastolic blood pressure 70 mm[Hg] Belkis Jessica DO Work Phone: [facility] 09-22-2023 16:01-0500 Systolic blood pressure 120 mm[Hg] Belkis Jessica DO Work Phone: [facility] Encounters Encounter Date Encounter Type Care [...] PM EST Routine [facility] [address] [place] [id number] JessicaBelkis, DO [address] [place] [address] [facility] Start: 09-22-2023 End: 09-22-2024 Alpha fetoprotein, maternal Alpha fetoprotein, maternal Lab Routine Second trimester Need for maternal serum alpha-protein (MSAFP) screening Expected: 09/22/2023 (Approximate), Expires: 09/22/2024 [facility] Comment on above: Expected: 09/22/2023 (Approximate), Expires: 09/22/2024 Start: 09-22-2023 End: 09-22-2024 US for US OB ANATOMY SINGLE W US OB CERVICAL LENGTH Imaging Routine Screening, , for anatomic survey Expected: 09/22/2023 (Approximate), Expires: 09/22/2024 [facility] Comment on above: Expected: 09/22/2023 (Approximate), Expires: 09/22/2024 CHLAMYDIA TRACHOMATI S (GENITO/STI) CHLAMYDIA TRACHOMATIS (GENITO/STI) Lab Routine Exposure to STD Ordered: 09/22/2023 [facility] Comment on above: Ordered: 09/22/2023 Cytology Cervical or vaginal smear or scraping study Pap Smear Pathology and Cytology Routine Well woman exam with routine gynecological exam Ordered: 09/22/2023 [facility] Comment on above: Ordered: 09/22/2023 Neisseria gonorrhoea e DNA [Presence] in Unspecified specimen by OC with probe detection Neisseria gonorrhea DNA probe, direct Lab Routine Exposure to STD Ordered: 09/22/2023 [facility] Comment on above: Ordered: 09/22/2023 SURESWAB(R) ADVANCED VAGINITIS PLUS, TMA SURESWAB(R) ADVANCED VAGINITIS PLUS, TMA Pathology and Cytology Routine Exposure to STD Ordered: 09/22/2023 [facility] Work Phone: Comment on above: Ordered: 09/22/2023 Payers Date Payer Category Payer Medicaid [facility] MEDICAID [place] [employer] [id number] 2021-Present [address] [place] [address] [id number] 2000 Unknown [id number] [id number] 2000 Unknown [id number] 2.16.840.1.821759.3.579.2.593 2000 Unknown [id number] 2.16.840.1.297684.3.579.2.593 2000 Unknown [id number] 2.16.840.1.847928.3.579.2.593 2000 Unknown [id number] 2.16.840.1.678326.3.579.2.1259 2000 Unknown [id number] 2.16.840.1.382798.3.579.2.9 2000 Unknown [id number] 2.16.840.1.517396.3.579.2.1259 2000 Unknown [id number] 2.16.840.1.919273.3.579.2.1259 2000 Unknown [id number] 2.16.840.1.389389.3.579.2.1259 2000 Unknown [id number] 2.16.840.1.934814.3.579.2.1259 2000 Unknown [id number] 2.16.840.1.779389.3.579.2.9 2000 Unknown [id number] 2.16.840.1.760070.3.579.2.9 2000 Unknown [id number] 2.16.840.1.719516.3.579.2.125 2000 Unknown [id number] 2.16.840.1.986143.3.579.2.1259 1959 Unknown [id number] Social History Date Type Detail Facility [facility] Start: 05-22-2023 [facility] Start: 2000 Sex Assigned At Female [facility] Start: 07-03-2023 Gender identity Identifies as female gender (finding) [facility] Sexual orientation Not on file [facility] History of Present illness Narrative 09-22-2023 Nora Riggs, [employer] 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 [...] nursing note reviewed. 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 Vitals: There is no height or [...] DATE CREATED AUTHOR 11/07/2022 [facility] DATE CREATED AUTHOR 'S ORGANIZ ATION 01/14/2024 [facility] [...] BE BASED ON THE PRIMARY CLINICAL RECORDS. [email or web address] provides no warranty or guarantee of the accuracy or completeness of information in this document.
[2024-01-21 10:13] VITALS: BP 143/79; PULSE 93
[2024-01-21 10:35] VITALS: BP 146/83; PULSE 100
== END 2024-01-21 10:40 | disposition home or self-care (01) ==
LOC: FBCO 07:43 → FBC 10:11
PROVIDERS: PCP Nurse Practitioner Family; Visit Provider Obstetrics & Gynecology
DX: O24.419 Gestational diabetes mellitus in pregnancy, unspecified control (principal)
CPT/HCPCS: 59025

== ENCOUNTER 2024-01-24 07:15 | Outpatient (OUT) | payer OTHER, SELFPAY ==
--- OUTSIDE RECORDS SUMMARY | 2024-01-23 23:48 | XMS_ITS ---
Patient Summarization (C-CDA 2.1 CCD) Created on: January 23, 2024 FLORENCIA CANO~FLORINDA DON : 2000 Sex: Female Author Organization Sample organization Care Team Providers Care Lead Software Qa Engineer Name Role Phone JOSE ., LITA [...] (1 source) Ibuprofen Drug Allergy 01-15-2016 [facility] Rep[facility] (2 sources) Ibuprofen Drug Allergy 07-10-2023 Unknown [facility] Work Phone: Encounters Encounter Date Encounter Type Care Provider Facility Start: 01-12-2024 End: 01-12-2024 ambulatory BELKIS JESSICA Not Available Start: 2024 End: 2024 ambulatory BELKIS JESSICA Not Available Start: 12-22-2023 End: 12-22-2023 ambulatory BELKIS WUO Not Available Start: 12-02-2023 End: 12-02-2023 ambulatory BELKIS JESSICA Not Available Start: 11-17-2023 End: 11-17-2023 ambulatory BELKIS JESSICA Not Available Start: 10-20-2023 End: 10-20-2023 ambulatory BELKIS JESSICA Not Available Start: 09-22-2023 End: 09-22-2023 ambulatory BELKIS WUO Not Available Start: 09-22-2023 End: 09-22-2023 Patient encounter procedure Belkis Wuo DO Work Phone: [facility] Start: 09-22-2023 End: 09-22-2023 Periodic preventive med est patient 18-39 yrs Belkis Wuo DO Work Phone: [facility] Comment on above: Second trimester pre gnancy; Well woman exam with routine gynecological exam; Exposure to STD; Need for maternal serum alpha-protein (MSAFP) screening; Screening, , for anatomic survey; Heartburn Start: 09-22-2023 Clinisync Result Encounter Belkis Wuo DO Work Phone: [facility] Unsolicited Start: 09-22-2023 Clinisync Result Encounter Belkis Wuo DO Work Phone: [facility] Unsolicited Start: 08-21-2023 End: 08-21-2023 ambulatory NIRAJ BEACH Not Available Start: 07-23-2023 End: 07-23-2023 ambulatory BELKIS JESSICA Not Available Start: 07-10-2023 End: 07-10-2023 ambulatory NIRAJ BEACH Not Available Start: 10-30-2022 End: 10-31-2022 ambulatory ARIANE HEDRICK Facility:[facility] Start: 06-21-2022 End: 06-21-2022 ambulatory ARIANE HEDRICK Facility:[facility] Start: 04-08-2022 End: 04-08-[address] BELKIS LOPEZ . Facility:[facility] Start: 01-06-2022 End: 01-06-2022 ambulatory LITA GARCIA . Facility:[facility] Medications Current Medications Medication Drug Class(es) Dates [...] hours. 180 tablet 1 07/10/2023 10/08/2023 Active Payers Date Payer Category Payer Medicaid [employer] [place] [id number] 2021-Present [address] [place] [address] [id number] 2000 Unknown [id number] 2000 Unknown [id number] [id number] 2000 Unknown [id number] [id number] 2000 Unknown [id number] [id number] 2000 Unknown [id number] [id number]58 2000 Unknown [id number] 2.16.840.1.276650.3.579.2.1258 2000 Unknown [id number] 2.16.840.1.612012.3.579.2.1258 2000 Unknown [id number] 2.16.840.1.318395.3.579.2.1258 2000 Unknown [id number] 2.16.840.1.566046.3.579.2.1258 2000 Unknown [id number] 2.16.840.1.030074.3.579.2.1258 2000 Unknown [id number] [id number] 2000 Unknown [id number] 2.16.840.1.474771.3.579.2.1258 2000 Unknown [id number] [id number] 2000 Unknown [id number] [id number] 1959 Unknown [id number] Plan of Treatment Date Care Activity Detail Author Start: 10-20-2023 End: 10-20-2023 Patient encounter procedure 10/20/2023 3:10 PM EST Routine [facility] [address] [id number] Belkis Lopez, DO [address] [place] [address] [facility] Start: 09-22-2023 End: 09-22-2024 Alpha fetoprotein, maternal Alpha fetoprotein, maternal Lab Routine Second trimester Need for maternal serum alpha-protein (MSAFP) screening Expected: 09/22/2023 (Approximate), Expires: 09/22/2024 [facility] Comment on above: Expected: 09/22/2023 (Approximate), Expires: 09/22/2024 Start: 09-22-2023 End: 09-22-2024 US for US OB ANATOMY SINGLE W US OB CERVICAL LENGTH Imaging Routine Screening, , for anatomic survey Expected: 09/22/2023 (Approximate), Expires: 09/22/2024 [facility] Comment on above: Expected: 09/22/2023 (Approximate), Expires: 09/22/2024 CHLAMYDIA TRACHOMATI S (GENITO/STI) CHLAMYDIA TRACHOMATIS (GENITO/STI) Lab Routine Exposure to STD Ordered: 09/22/2023 [facility] Comment on above: Ordered: 09/22/2023 Cytology Cervical or vaginal smear or scraping study Pap Smear Pathology and Cytology Routine Well woman exam with routine gynecological exam Ordered: 09/22/2023 [facility] Comment on above: Ordered: 09/22/2023 Neisseria gonorrhoea e DNA [Presence] in Unspecified specimen by OC with probe detection Neisseria gonorrhea DNA probe, direct Lab Routine Exposure to STD Ordered: 09/22/2023 [facility] Comment on above: Ordered: 09/22/2023 SURESWAB(R) ADVANCED VAGINITIS PLUS, TMA SURESWAB(R) ADVANCED VAGINITIS PLUS, TMA Pathology and Cytology Routine Exposure to STD Ordered: 09/22/2023 [facility] Work Phone: Comment on above: Ordered: 09/22/2023 Problems Active Problems Problem Classification Problem Date [...] [NAUSEA WITH VOMITING UNSPECIFIED] Onset: 01-06-2022 Episodic Procedures Date Procedure Procedure Detail Performing Clinician Start: 09-22-2023 Urnls dip stick/tabl et rgnt non-auto w/o micrscp [employer] Work Phone: Start: 09-22-2023 IGP,APTIMA HPV,AGE GDLN [employer] Phone: Results Test Name Value Interpretation Reference Range Facility IGP,APTIMA HPV,AGE GDLNon AGE GDLN ACOG TESTING Note . [facility] Comment on above: TESTS RESULT FLAG UN ITS REF RANGE LAB Clinician Provided Cytology Information Source.............Cervix Other.............. No. of containers..01 ThinPrep Vial Age Algo ACOG Bina... FLAG LEGEND: L-Low Normal,H-High Normal,LL-Alert Low,HH-Alert High <-Panic Low,>-Panic High,A-Abnormal,AA-Critical Abnormal Performed at: 01 [facility] [address] [place] [address] Lali Holloway MD, IGP, RFX APTIMA HPV ASCU Note . [facility] Comment on above: TESTS RESULT FLAG UN ITS REF RANGE LAB DIAGNOSIS: 02 NEGATIVE FOR INTRAEPITHELIAL LESION OR MALIGNANCY. Specimen adequacy: 02 Satisfactory for evaluation. No endocervical component is identified. An endocervical component is not commonly seen in the patient. Performed by: Syd Pickering, Street Superintendent ([facility]) . 02 Note: Note 02 The Pap [...] <-Panic Low,>-Panic High,A-Abnormal,AA-Critical Abnormal Performed at: [address] [address] Lali Holloway MD, Performed at: =G - [facility] [address] [id number] Broach Grinder: Lali Holloway MD, Phone: [phone] Performed at: [facility] [address] [id number] Broach Grinder: Lali Holloway MD, Phone: [phone] [facility] Urinalysis macro (dipstick) panel (U)on 09-22-2023 Bilirubin, UA Negative Negative - 4(70) +++ mg/dL [facility] Blood, UA Negative Negative - 50 Flash/mcL [facility] Clarity, UA Clear [facility] Color, UA Yellow [facility] Glucose, UA Negative Negative - 1999(110) ++++ mg/dL [facility] Interpretation and review of laboratory results Abnormal [facility] Ketones, UA Positive Negative - 160(16) ++++ mg/dL [facility] Leukocytes, UA Negative Negative - 500+++ Taylor/mcL [facility] Nitrite, UA Negative Negative - Positive [facility] pH, UA 5.5 5 - 9 [facility] Protein, UA Negative Negative - 2000(20) ++++ mg/dL [facility] Spec Grav, UA 1.020 1 - 1.03 [facility] Urobilinogen, UA 0.2 0.2 - 12 mg/dL Critical access hospital COMPLIANCE DRUG SCREENon PDF . Normal [facility] Comment on above: Performed By: #### U RCX #### [facility] [address] [address] [address] Tisha Carr Summary FINAL Normal [facility] Comment on above: Result Comment: = [...] test is not intended to distinguish between ttyyq-5-jmbngvlhkrjufuhgsqpc, the predominant form of THC in most herbal or marijuana-based products, and mnety-7-rryhimsncomqivavjcpl. Methylphenidate PRESENT UNEXPECTED Ritalinic Acid PRESENT UNEXPECTED [...] = Performed By: #### U RCX #### [facility] [address] [place] [address] Dr. Tisha Carr URIC ACID RAND URINEon 10-31 Uric Acid, Urine 67.3 mg/dL Normal Not Estab. [facility] Comment on above: Performed By: #### U RCX #### [facility] [address] [place] [address] Dr. Tisha Carr DRUG SCREEN RAPID (URINE)on 10-30-2022 AMP Negative Normal NEGATIVE [facility] Comment on above: Performed By: #### U RCX #### [facility] [address] [place] [address] Dr. Tisha Carr BAR Negative Normal NEGATIVE [facility] Comment on above: Performed By: #### U RCX #### [facility] [address] [place] [address] Dr. Tisha Carr BUP Negative Normal NEGATIVE [facility] Comment on above: Performed By: #### U RCX #### [facility] [address] [place] [address] Dr. Tisha Carr BZO Negative Normal NEGATIVE [facility] Comment on above: Performed By: #### U RCX #### [facility] [address] [place] [address] Dr. Tisha Carr SOCRATES Negative Normal NEGATIVE [facility] Comment on above: Performed By: #### U RCX #### [facility] [address] [place] [address] Dr. Tisha Carr CUT-OFFS SEE BELOW Normal [facility] Comment on above: Result Comment: AMP [...] ng/mL Performed By: #### U RCX #### [facility] [address] [place] [address] Dr. Tisha Carr DRUG CUT HEADER DRUG CLASS TEST SYST EM CUT-OFF CONCENTRATIONS ARE FOLLOWS: Normal [facility] Comment on above: Performed By: #### U RCX #### [facility] [address] [place] [address] Dr. Tisha Carr mAMP Negative Normal NEGATIVE [facility] Comment on above: Performed By: #### U RCX #### [facility] [address] [place] [address] Dr. Tisha Carr MTD Negative Normal NEGATIVE [facility] Comment on above: Performed By: #### U RCX #### [facility] [address] [place] [address] Dr. Tisha Carr OPI Negative Normal NEGATIVE [facility] Comment on above: Performed By: #### U RCX #### [facility] [address] [place] [address] Dr. Tisha Carr OXY Negative Normal NEGATIVE [facility] Comment on above: Performed By: #### U RCX #### [facility] [address] [place] [address] Dr. Tisha Carr PCP Negative Normal NEGATIVE [facility] Comment on above: Performed By: #### U RCX #### [facility] [address] [place] [address] Dr. Tisha Carr PPX Negative Normal NEGATIVE [facility] Comment on above: Performed By: #### U RCX #### [facility] [address] [place] [address] Dr. Tisha Carr TCA Negative Normal NEGATIVE [facility] Comment on above: Performed By: #### U RCX #### [facility] [address] [place] [address] Dr. Tisha Carr THC Positive Abnormal NEGATIVE [facility] Comment on above: Performed By: #### U RCX #### [facility] [address] [place] [address] Dr. Tisha Carr CBC AUTO DIFFon 06-21-2022 BASO # 0.0 103/ul Normal 0.0-0.1 [facility] Comment on above: Performed By: #### U RCX #### [facility] [address] [place] [address] Dr. Tisha Carr Basophils/100 WBC (Bld) 0.2 % Normal 0.2-2.0 [facility] Comment on above: Performed By: #### U RCX #### [facility] [address] [place] [address] Dr. Tisha Carr EO # 0.0 103/ul Normal 0.0-0.7 [facility] Comment on above: Performed By: #### U RCX #### [facility] [address] [place] [address] Dr. Tisha Carr Eosinophils/100 WBC (Bld) 0.2 % Critically low 0.9-7.0 [facility] Comment on above: Performed By: #### U RCX #### [facility] [address] [place] [address] Dr. Tisha Carr Erythrocyte distribution width (RBC) [Ratio] 12.3 % Normal 11.0-15.0 [facility] Comment on above: Performed By: #### U RCX #### [facility] [address] [place] [address] Dr. Tisha Carr Hematocrit (Bld) [Volume fraction] 43.1 % Normal 36.0-48.0 [facility] Comment on above: Performed By: #### U RCX #### [facility] [address] [address] [address] Tisha Carr Hemoglobin (Bld) [Mass/Vol] 15.1 g/dL Normal 12.0-16.0 [facility] Comment on above: Performed By: #### U RCX #### [facility] [address] [address] [address] Tihsa Carr IG # 0.06 10e3/ul Critically high 0.00-0.03 [facility] Comment on above: Performed By: #### U RCX #### [facility] [address] [place] [address] Dr. Tisha Carr IG % 0.5 % Normal 0.0-0.5 [facility] Comment on above: Performed By: #### U RCX #### [facility] [address] [address] [address] Tisha Carr LYMPH # 1.0 103/ul Critically low 1.2-3.8 [facility] Comment on above: Performed By: #### U RCX #### [facility] [address] [place] [address] Dr. Tisha Carr Lymphocytes/100 WBC (Bld) 8.2 % Critically low 20.5-60.0 [facility] Comment on above: Performed By: #### U RCX #### [facility] [address] [address] [address] Tisha Carr MANUAL DIFF REQ NO Normal [facility] Comment on above: Performed By: #### U RCX #### [facility] [address] [place] [address] Dr. Tisha Carr MCH (RBC) [Entitic mass] 30.3 pg Normal 26.7-34.0 [facility] Comment on above: Performed By: #### U RCX #### [facility] [address] [place] [address] Dr. Tisha Carr MCHC (RBC) [Mass/Vol] 35.0 g/dL Normal 29.9-35.2 [facility] Comment on above: Performed By: #### U RCX #### [facility] [address] [place] [address] Dr. Tisha Carr MCV (RBC) [Entitic vol] 86.4 fL Normal 81.0-99.0 [facility] Comment on above: Performed By: #### U RCX #### [facility] [address] [place] [address] Dr. Tisha Carr MONO # 0.8 103/ul Normal 0.3-0.8 [facility] Comment on above: Performed By: #### U RCX #### [facility] [address] [place] [address] Dr. Tisha Carr Monocytes/100 WBC (Bld) 6.0 % Normal 1.7-12.0 [facility] Comment on above: Performed By: #### U RCX #### [facility] [address] [place] [address] Dr. Tisha Carr NEUT # 10.8 103/ul Critically high 1.4-6.5 [facility] Comment on above: Performed By: #### U RCX #### [facility] [address] [place] [address] Dr. Tisha Carr Neutrophils/100 WBC (Bld) 84.9 % Critically high 43.0-75.0 [facility] Comment on above: Performed By: #### U RCX #### [facility] [address] [place] [address] Dr. Tisha Carr Platelet mean volume (Bld) [Entitic vol] 10.8 fL Normal 9.5-13.5 [facility] Comment on above: Performed By: #### U RCX #### [facility] [address] [place] [address] Dr. Tisha Carr PLT 237 103/ul Normal 150-450 [facility] Comment on above: Performed By: #### U RCX #### [facility] [address] [place] [address] Dr. Tisha Carr RBC 4.99 106/ul Normal 4.20-5.40 [facility] Comment on above: Performed By: #### U RCX #### [facility] [address] [place] [address] Dr. Tisha Carr WBC 12.7 103/ul Critically high 4.0-11.0 [facility] Comment on above: Performed By: #### U RCX #### [facility] [address] [place] [address] Dr. Tisha Carr CRPon 06-21-2022 CRP 10.0 mg/dL Critically high <=1.0 [facility] Comment on above: Performed By: #### C RP, CMP, LIPA #### [facility] [address] [place] [address] Dr. Tisha Carr ER URINE PROFILEon Bilirubin Ql (U) SMALL Abnormal NEGATIVE [facility] Comment on above: Performed By: #### E YULY CUMMINS, PREGU #### [facility] [address] [place] [address] Dr. Tisha Carr Clarity (U) CLEAR Normal CLEAR [facility] Comment on above: Performed By: #### YULY BRYANT PREGU #### [facility] [address] [place] [address] Dr. Tisha Carr Color (U) YELLOW Normal YELLOW [facility] Comment on above: Performed By: #### YULY BRYANT, PREGU #### [facility] [address] [place] [address] Dr. Tisha Carr ERUAHD A micrscopic examina tion will be performed if indicated. Normal [facility] Comment on above: Performed By: #### E YULY CUMMINS, PREGU #### [facility] [address] [place] [address] Dr. Tisha Carr Glucose Ql (U) Negative Normal NEGATIVE [facility] Comment on above: Performed By: #### YULY BRYANT, PREGU #### [facility] [address] [place] [address] Dr. Tisha Carr Hemoglobin Ql (U) MODERATE Abnormal NEGATIVE [facility] Comment on above: Performed By: #### E RUR UMICRO, PREGU #### [facility] [address] [place] [address] Dr. Tisha Carr Ketones Ql (U) 80 mg/dl Abnormal NEGATIVE [facility] Comment on above: Performed By: #### E RUR, UMICRO, PREGU #### [facility] [address] [place] [address] Dr. Tisha Carr LEUKOCYTES Negative Normal NEGATIVE [facility] Comment on above: Performed By: #### E RUR UMICRO, PREGU #### [facility] [address] [place] [address] Dr. Tisha Carr Nitrite Ql (U) Negative Normal NEGATIVE [facility] Comment on above: Performed By: #### E RUR UMICRO, PREGU #### [facility] [address] [place] [address] Dr. Tisha Carr pH (U) 6.0 [pH] Normal 5-9 [facility] Comment on above: Performed By: #### Sofi RUR UMICRO, PREGU #### [facility] [address] [place] [address] Dr. Tisha Carr SPEC GRAVITY 1.025 Normal 1.005-<=1.025 [facility] Comment on above: Performed By: #### Sofi RUR UMICRO, PREGU #### [facility] [address] [place] [address] Dr. Tisha Carr UA PROTEIN TRACE Normal NEGATIVE/ TRACE [facility] Comment on above: Performed By: #### E RUR UMICRO, PREGU #### [facility] [address] [place] [address] Dr. Tisha Carr UR MICRO IND INDICATED Normal [facility] Comment on above: Performed By: #### E RUR, UMICRO, PREGU #### [facility] [address] [place] [address] Dr. Tisha Carr Urobilinogen Qn (U) 1.0 {Alma'U}/dL Normal 0.2 - 1.0 [facility] Comment on above: Performed By: #### YULY BRYANT, PREGU #### [facility] [address] [place] [address] Dr. Tisha Carr LACTATE/LACTIC ACIDon 2021 Lactate [Moles/Vol] 1.0 mmol/L Normal 0.4-1.9 [facility] Comment on above: Performed By: #### U RCX #### [facility] [address] [place] [address] Dr. Tisha Carr LIPASEon 06-21-2022 Lipase [Catalytic activity/Vol] 41.0 U/L Critically low 73.0-393.0 [facility] Comment on above: Performed By: #### C RP, CMP, LIPA #### [facility] [address] [place] [address] Dr. Tisha Carr URon 06-21-2022 , QUAL Negative Normal NEGATIVE [facility] Comment on above: Performed By: #### YULY BRYANT, PREGU #### [facility] [address] [place] [address] Dr. Tisha Carr PROF 14(COMP METB)on 022 Albumin [Mass/Vol] 4.0 g/dL Normal 3.4-5.0 [facility] Comment on above: Performed By: #### C RP, CMP, LIPA #### [facility] [address] [place] [address] Dr. Tisha Carr Albumin/Globulin [Mass ratio] 1.0 {ratio} Normal [facility] Comment on above: Performed By: #### C RP, CMP, LIPA #### [facility] [address] [place] [address] Dr. Tisha Carr ALP [Catalytic activity/Vol] 74 U/L Normal 46-116 [facility] Comment on above: Performed By: #### C RP, CMP, LIPA #### [facility] [address] [place] [address] Dr. Tisha Carr ALT [Catalytic activity/Vol] 33 U/L Normal 14-59 [facility] Comment on above: Performed By: #### C RP, CMP, LIPA #### [facility] [address] [address] [address] Tisha Carr Anion gap [Moles/Vol] 15.8 mmol/L Normal [facility] Comment on above: Performed By: #### C RP, CMP, LIPA #### [facility] [address] [place] [address] Dr. Tisha Carr AST [Catalytic activity/Vol] 17 U/L Normal 15-37 [facility] Comment on above: Performed By: #### C RP, CMP, LIPA #### [facility] [address] [place] [address] Dr. Tisha Carr Bilirubin [Mass/Vol] 1.3 mg/dL Critically high 0.2-1.0 [facility] Comment on above: Performed By: #### C RP, CMP, LIPA #### [facility] [address] [place] [address] Dr. Tisha Carr Calcium [Mass/Vol] 9.2 mg/dL Normal 8.5-10.1 [facility] Comment on above: Performed By: #### C RP, CMP, LIPA #### [facility] [address] [place] [address] Dr. Tisha Carr Chloride [Moles/Vol] 102 mmol/L Normal 98-107 [facility] Comment on above: Performed By: #### C RP, CMP, LIPA #### [facility] [address] [place] [address] Dr. Tisha Carr CO2 [Moles/Vol] 22.7 mmol/L Normal 21.0-32.0 [facility] Comment on above: Performed By: #### C RP, CMP, LIPA #### [facility] [address] [place] [address] Dr. Tisha Carr Creatinine [Mass/Vol] 0.70 mg/dL Normal 0.55-1.02 [facility] Comment on above: Performed By: #### C RP, CMP, LIPA #### [facility] [address] [address] [address] Tisha Carr EGFR-AF KITTITIAN >60 Normal >=60 [facility] Comment on above: Performed By: #### C RP, CMP, LIPA #### [facility] [address] [address] [address] Tisha Carr EGFR-NON AF KITTITIAN >60 Normal >=60 [facility] Comment on above: Performed By: #### C RP, CMP, LIPA #### [facility] [address] [address] [address] Tisha Carr Globulin (S) [Mass/Vol] 4.2 g/dL Normal [facility] Comment on above: Performed By: #### C RP, CMP, LIPA #### [facility] [address] [address] [address] Tisha Carr Glucose [Mass/Vol] 93 mg/dL Normal 74-106 [facility] Comment on above: Performed By: #### C RP, CMP, LIPA #### [facility] [address] [address] [address] Tisha Carr Potassium [Moles/Vol] 3.5 mmol/L Normal 3.5-5.1 [facility] Comment on above: Performed By: #### C RP, CMP, LIPA #### [facility] [address] [address] [address] Tisha Carr Protein [Mass/Vol] 8.2 g/dL Normal 6.4-8.2 [facility] Comment on above: Performed By: #### C RP, CMP, LIPA #### [facility] [address] [address] [address] Tisha Carr Sodium [Moles/Vol] 137 mmol/L Normal 136-145 [facility] Comment on above: Performed By: #### C RP, CMP, LIPA #### [facility] [address] [address] [address] Tisha Carr Urea nitrogen [Mass/Vol] 16.0 mg/dL Normal 7.0-18.0 [facility] Comment on above: Performed By: #### C RP, CMP, LIPA #### [facility] [address] [place] [address] [address] Tisha Carr Urea nitrogen/Creatinin e [Mass ratio] 22.9 mg/mg Normal [facility] Comment on above: Performed By: #### C RP, CMP, LIPA #### [facility] [address] [address] [address] Tisha Carr URINE MICROSCOPIC ONLYon BACTERIA TRACE Abnormal NONE SEEN [facility] Comment on above: Performed By: #### E RUR, UMICRO, PREGU #### [facility] [address] [address] [address] Tisha Carr Bacteria identified Cx Nom (U) NOT INDICATED Normal [facility] Comment on above: Performed By: #### E RUR, UMICRO, PREGU #### [facility] [address] [address] [address] Tisha Carr CAST NONE SEEN Normal NONE SEEN [facility] Comment on above: Performed By: #### E RUR, UMICRO, PREGU #### [facility] [address] [address] [address] Tisha Carr Crystals LM Nom (Urine sed) NONE SEEN Normal NONE SEEN [facility] Comment on above: Performed By: #### E RUR, UMICRO, PREGU #### [facility] [address] [address] [address] Tisha Carr Epithelial cells LM Ql (Urine sed) MODERATE Abnormal NONE SEEN /RARE [facility] Comment on above: Performed By: #### E RUR, UMICRO, PREGU #### [facility] [address] [address] [address] Tisha Carr MUCOUS MODERATE Abnormal NONE SEEN [facility] Comment on above: Performed By: #### E RUR, UMICRO, PREGU #### [facility] [address] [address] [address] Tisha Carr RBC 0-2 Normal 0-2 [facility] Comment on above: Performed By: #### E RUR, UMICRO, PREGU #### [facility] [address] [address] [address] Tisha Carr WBC 0-2 Abnormal NONE SEEN [facility] Comment on above: Performed By: #### E YULY CUMMINS, PREGU #### [facility] [address] [address] [address] Tisha Carr PAP ACOG PANEL 2: 21 to 29on 04-11-2022 . . Normal [facility] Comment on above: Performed By: #### U RCX #### [facility] [address] [address] [address] Tisha Carr Age Gdln ACOG Testing - [facility] Comment on above: Performed By: #### U RCX #### [facility] [address] [place] [address] Dr. Tisha Carr DIAGNOSIS: Comment [facility] Comment on above: Result Comment: NEGA TIVE FOR INTRAEPITHELIAL LESION OR MALIGNANCY. FUNGAL ORGANISMS MORPHOLOGICALLY CONSISTENT WITH SHEREE SPECIES ARE PRESENT. Performed By: #### U RCX #### [facility] [address] [address] [address] Tisha Carr Methodology: Comment Normal [facility] Comment on above: Result Comment: This liquid based ThinPrep(R) pap test was screened with the use of an image guided system. Performed By: #### U RCX #### [facility] [address] [place] [address] Dr. Tisha Carr Note: Comment Normal [facility] Comment on above: Result Comment: The Pap smear is a screening test designed to aid in the detection of premalignant and malignant conditions of the uterine cervix. It is not a diagnostic procedure and should not be used as the sole means of detecting cervical cancer. Both false-positive and false-negative reports do occur. . Performed By: #### U RCX #### [facility] [address] [place] [address] Dr. Tisha Carr Performed by: Comment Normal [facility] Comment on above: Result Comment: Caleb Schaeffer, Street Superintendent (ASCP) Performed By: #### U RCX #### [facility] [address] [place] [address] Dr. Tisha Carr Reflex Criteria: Comment Normal [facility] Comment on above: Result Comment: The HPV DNA reflex criteria were not met with this specimen result therefore, no HPV testing was performed. . Performed By: #### U RCX #### [facility] [address] [address] [address] Tisha Carr Specimen adequacy: Comment Normal [facility] Comment on above: Result Comment: Sati sfactory for evaluation. Endocervical and/or squamous metaplastic cells (endocervical component) are present. Performed By: #### U RCX #### [facility] [address] [place] [address] Dr. Tisha Carr CULTURE URINEon 01-08-2022 CULTURE [...] Trimethoprim/Sulfamethox azole <=20 S F Normal [facility] Comment on above: Performed By: #### U RCX #### [facility] [address] [place] [address] Dr. Tisha Carr Covid-19 PCR (CVDTB)on 12-23 SARS-CoV-2 (COVID-19) RNA OC+probe Ql (Unsp spec) Not detected Normal NOT DETECTED [facility] Comment on above: Result Comment: This test is not yet approved or cleared by the [place] FDA. When there are no FDA-approved or cleared tests available, and other criteria are met, FDA can make tests available under an emergency access mechanism called an Emergency Use Authorization (EUA). The EUA for this test is supported by the [employer] of Health and Human Service's (HHS's) declaration [...] SARS-CoV-2. Performed By: #### C VDTBH #### [facility] [address] [place] [address] Dr. Tisha Carr ER URINE PROFILEon 2 Bilirubin Ql (U) MODERATE Abnormal NEGATIVE [facility] Comment on above: Performed By: #### YULY BRYANT PREGU #### [facility] [address] [place] [address] Dr. Tisha Carr Clarity (U) CLEAR Normal CLEAR [facility] Comment on above: Performed By: #### YULY BRYANT PREGU #### [facility] [address] [place] [address] Dr. Tisha Carr Color (U) DK. YELLOW Normal YELLOW [facility] Comment on above: Performed By: #### YULY BRYANT, PREGU #### [facility] [address] [place] [address] Dr. Tisha Carr ERUAHD A micrscopic examina tion will be performed if indicated. Normal [facility] Comment on above: Performed By: #### YULY BRYANT PREGU #### [facility] [address] [place] [address] Dr. Tisha Carr Glucose Ql (U) Negative Normal NEGATIVE [facility] Comment on above: Performed By: #### Sofi MEEKRYULY, PREGU #### [facility] [address] [place] [address] Dr. Tisha Carr Hemoglobin Ql (U) Negative Normal NEGATIVE [facility] Comment on above: Performed By: #### E RUR, UMICRO, PREGU #### [facility] [address] [place] [address] Dr. Tisha Carr Ketones Ql (U) >=80 Abnormal NEGATIVE [facility] Comment on above: Performed By: #### E RUR, UMICRO, PREGU #### [facility] [address] [place] [address] Dr. Tisha Carr LEUKOCYTES TRACE Abnormal NEGATIVE [facility] Comment on above: Performed By: #### E RUR, UMICRO, PREGU #### [facility] [address] [place] [address] Dr. Tisha Carr Nitrite Ql (U) Negative Normal NEGATIVE [facility] Comment on above: Performed By: #### E RUR, UMICRO, PREGU #### [facility] [address] [place] [address] Dr. Tisha Carr pH (U) 6.0 [pH] Normal 5-9 [facility] Comment on above: Performed By: #### E RUR, UMICRO, PREGU #### [facility] [address] [address] [address] Tisha Carr Protein (U) [Mass/Vol] 100 mg/dL Abnormal NEGATIVE/ TRACE [facility] Comment on above: Performed By: #### E RUR, UMICRO, PREGU #### [facility] [address] [place] [address] Dr. Tisha Carr SPEC GRAVITY 1.025 Normal 1.005-<=1.025 [facility] Comment on above: Performed By: #### E RUR, UMICRO, PREGU #### [facility] [address] [place] [address] Dr. Tisha Carr UR MICRO IND INDICATED Normal [facility] Comment on above: Performed By: #### E RUR, UMICRO, PREGU #### [facility] [address] [place] [address] Dr. Tisha Carr Urobilinogen Qn (U) 1.0 {Alma'U}/dL Normal 0.2 - 1.0 [facility] Comment on above: Performed By: #### E YULY CUMMINS PREGU #### [facility] [address] [place] [address] Dr. Tisha Carr INFLUENZA A AND B AGon 01-06 INFLUANEGH SEE BELOW Normal [facility] Comment on above: Result Comment: Nega tive for Flu A protein angiten. Infection due to Flu A cannot be ruled out. Flu A angiten in the sample may be below the detection limit of the test. Performed By: #### U RCX #### [facility] [address] [place] [address] Dr. Tisha Carr INFLUBNEGH SEE BELOW Normal [facility] Comment on above: Result Comment: Nega tive for Flu B protein antigen. Infection due to Flu B cannot be ruled out. Flu B antigen in the sample may be below the detection limit of the test. Performed By: #### U RCX #### [facility] [address] [place] [address] Dr. iTsha Carr INFLUENZA A AG Negative Normal NEGATIVE SEE COMMENT [facility] Comment on above: Performed By: #### U RCX #### [facility] [address] [place] [address] Dr. Tisha Carr INFLUENZA B AG Negative Normal NEGATIVE SEE COMMENT [facility] Comment on above: Performed By: #### U RCX #### [facility] [address] [place] [address] Dr. Tisha Carr INTERNAL CONTROLS Within Normal Limits Normal Wi thin Normal Limits [facility] Comment on above: Performed By: #### U RCX #### [facility] [address] [place] [address] Dr. Tisha Carr URon 01-06-2022 , QUAL Negative Normal NEGATIVE [facility] Comment on above: Performed By: #### E YULY CUMMINS PREGU #### [facility] [address] [place] [address] Dr. Tisha Carr URINE MICROSCOPIC ONLYon BACTERIA SMALL Abnormal NONE SEEN [facility] Comment on above: Performed By: #### U RCX #### [facility] [address] [address] [address] Tisha Carr Bacteria identified Cx Nom (U) INDICATED Normal [facility] Comment on above: Performed By: #### U RCX #### [facility] [address] [address] [address] Tisha Carr CAST NONE SEEN Normal NONE SEEN [facility] Comment on above: Performed By: #### U RCX #### [facility] [address] [address] [address] Tisha Carr Crystals LM Nom (Urine sed) NONE SEEN Normal NONE SEEN [facility] Comment on above: Performed By: #### U RCX #### [facility] [address] [address] [address] Tisha Carr Epithelial cells LM Ql (Urine sed) MANY Abnormal NONE SEEN /RARE [facility] Comment on above: Performed By: #### U RCX #### [facility] [address] [address] [address] Tisha Carr MUCOUS LARGE Abnormal NONE SEEN [facility] Comment on above: Performed By: #### U RCX #### [facility] [address] [address] [address] Tisha Carr RBC NONE SEEN Abnormal 0-2 [facility] Comment on above: Performed By: #### U RCX #### [facility] [address] [address] [address] Tisha Carr WBC 5-10 Abnormal NONE SEEN [facility] Comment on above: Performed By: #### U RCX #### [facility] [address] [address] [address] iTsha Carr Social History Date Type Detail Facility Start: 07-03-2023 Gender identity Identifies as female gender (finding) [facility] Start: 05-22-2023 [facility] Start: 2000 Sex Assigned At Female [facility] Tobacco smoking stat us [facility] Tobacco smoking consumption unknown [facility] Sexual orientation Not on file [facility] Vital Signs Date Time Vital Sign Value Performing Clinician Faci lity 01-29-2024 16:01-0500 Body weight 89.09 kg [employer] DO Work Phone: [facility] 09-22-2023 16:01-0500 Diastolic blood pressure 70 mm[Hg] [employer] DO Work Phone: [facility] 09-22-2023 16:01-0500 Systolic blood pressure 120 mm[Hg] Belkis [employer] DO Work Phone: [facility] History of Present illness Narrative 09-22-2023 Nora Riggs, ABSTRACT WRITER - 09/22/2023 3:20 PM EST Note Date [...] Problems Past Medical History: Diagnosis Date Asthma ([facility]) No family history on file. Social [...] nursing note reviewed. Exam conducted with a staffing program manager present. Vitals: There is no height [...] DATE CREATED AUTHOR 11/07/2022 [facility] DATE CREATED AUTHOR AUTHOR'S ORGANIZ ATION 01/14/2024 [facility] EPIC Reason for Visit [...] BE BASED ON THE PRIMARY CLINICAL RECORDS. [employer] provides no warranty or guarantee of the accuracy or completeness of information in this document.
--- NOTE | 2024-01-24 | US_ITS ---
[address] [address] Patient Name: FLORENCIA NEELY MRN: [id number] date: 2000 Sex: F Assigned Patient Location: [facility] Current Patient Location: Accession/Order Number: [id number] Exam Date: 01/24/2024 11:20 Report Date: 01/26/2024 08:56 At the request of: BELKIS BRAND Procedure: US OB BPP w non-stress EXAMINATION: US OB BPP w non-stress HISTORY: INSULIN CONTROLLED DIABETES COMPARISON: No relevant comparison available. TECHNIQUE: Ultrasound biophysical profile was performed in the radiology department. BREATHING MOVEMENTS: 2.0 GROSS BODY MOVEMENTS: 2.0 TONE: 2.0 QUALITATIVE AMNIOTIC FLUID VOLUME: 2.0 PRESENTATION: CEPHALIC HEART RATE: 132.4 bpm bpm. AMNIOTIC FLUID VOLUME: 14.4 cm GESTATIONAL AGE: 37 weeks 2 days CONCLUSION: Total biophysical profile score 8.0. Electronically authenticated by: MERVAT LANG Date: 01/26/2024 08:56
--- OUTSIDE RECORDS SUMMARY | 2024-01-24 08:04 | XMS_ITS | CCD ---
Author Organization [facility] Inform ion Partnership [facility] Care Team Providers Care Service Advisor Name Role Phone JOSE ., LITA Admitting [...] Carrillo Attending Unavailable JESSICA, BELKIS Attending Unavailable EJSSICA, BELKIS Attending Unavailable JESSICA, BELKIS Attending Unavailable JESSICA, BELKIS Attending Unavailable JESSICA, BELKIS Attending Unavailable JESSICA, BELKIS Attending Unavailable JESSICA, BELKIS Attending Unavailable JESSICA, BELKIS Attending Unavailable Allergies Allergy Classification Reported Allergen(s) Allergy Type Date of Onset Reaction(s) Facility (1 source) Ibuprofen Drug Allergy 01-15-2016 [facility] Repository (2 sources) Ibuprofen Drug Allergy 07-10-2023 Unknown [facility] Work Phone: Medications [...] AGE GDLN ACOG TESTING Note . [facility] Comment on above: TESTS RESULT FLAG UN ITS REF RANGE LAB Clinician Provided Cytology Information Source.............Cervix Other.............. No. of containers..01 ThinPrep Vial Age Algo ACOG Bina... - 01 FLAG LEGEND: L-Low Normal,H-High Normal,LL-Alert Low,HH-Alert High <-Panic Low,>-Panic High,A-Abnormal,AA-Critical Abnormal Performed at: 01 =[facility] [place] [address] Lali Holloway MD, IGP, RFX APTIMA HPV ASCU Note . [facility] Comment on above: TESTS RESULT FLAG UN ITS REF RANGE LAB DIAGNOSIS: 02 NEGATIVE FOR INTRAEPITHELIAL LESION OR MALIGNANCY. Specimen adequacy: 02 Satisfactory for evaluation. No endocervical component is identified. An endocervical component is not commonly seen in the patient. Performed by: 02 Kieran Pickering, Chipping Machine Operator ([facility]) . 02 Note: Note 02 The [...] Low,>-Panic High,A-Abnormal,AA-Critical Abnormal Performed at: [address] [facility] [address] [place] [address] Lali Holloway MD, Performed at: =G - [facility] [address] [id number] Manager Fixed Income: Lali Holloway MD, Phone: [phone] Performed at: - [facility] [id number] Manager Fixed Income: Lali Holloway MD, Phone: [phone] [facility] Urinalysis macro (dipstick) panel (U)on 09-22-2023 Bilirubin, UA Negative Negative - 4(70) +++ mg/dL [facility] Blood, UA Negative Negative - 50 Flash/mcL [facility] Clarity, UA Clear [facility] Color, UA Yellow [facility] Glucose, UA Negative Negative - 1999(110) ++++ mg/dL [facility] Interpretation and review of laboratory results Abnormal [facility] Ketones, UA Positive Negative - 160(16) ++++ mg/dL [facility] Leukocytes, UA Negative Negative - 500+++ Taylor/mcL [facility] Nitrite, UA Negative Negative - Positive [facility] pH, UA 5.5 5 - 9 [facility] Protein, UA Negative Negative - 1999(20) ++++ mg/dL [facility] Spec Grav, UA 1.020 1 - 1.03 [facility] Urobilinogen, UA 0.2 0.2 - 12 mg/dL [facility] COMPLIANCE DRUG SCREENon PDF . Normal [facility] Comment on above: Performed By: #### U RCX #### [facility] [address] [place] [address] Dr. Tisha Carr Summary FINAL Normal [facility] Comment on above: Result Comment: = [...] test is not intended to distinguish between vyhyp-4-yusdssrwcmxyclikguio, the predominant form of THC in most herbal or marijuana-based products, and nuhgi-0-cmrjoyvorkllanccrtar. Methylphenidate PRESENT UNEXPECTED Ritalinic Acid PRESENT UNEXPECTED [...] = Performed By: #### U RCX #### [facility] [address] [address] [address] Tisha Carr URIC ACID RAND URINEon 10-31 Uric Acid, Urine 67.3 mg/dL Normal Not Estab. [facility] Comment on above: Performed By: #### U RCX #### [facility] [address] [place] [address] Dr. Tisha Carr DRUG SCREEN RAPID (URINE)on 10-30-2022 AMP Negative Normal NEGATIVE [facility] Comment on above: Performed By: #### U RCX #### [facility] [address] [place] [address] Dr. Tisha Carr BAR Negative Normal NEGATIVE [facility] Comment on above: Performed By: #### U RCX #### [facility] [address] [place] [address] Dr. Tisha Carr BUP Negative Normal NEGATIVE [facility] Comment on above: Performed By: #### U RCX #### [facility] [address] [place] [address] Dr. Tisha Carr BZO Negative Normal NEGATIVE [facility] Comment on above: Performed By: #### U RCX #### [facility] [address] [place] [address] Dr. Tisha Carr SOCRATES Negative Normal NEGATIVE [facility] Comment on above: Performed By: #### U RCX #### [facility] [address] [place] [address] Dr. Tisha Carr CUT-OFFS SEE BELOW Normal [facility] Comment on above: Result Comment: AMP [...] ng/mL Performed By: #### U RCX #### [facility] [address] [place] [address] Dr. Tisha Carr DRUG CUT HEADER DRUG CLASS TEST SYST EM CUT-OFF CONCENTRATIONS ARE FOLLOWS: Normal [facility] Comment on above: Performed By: #### U RCX #### [facility] [address] [place] [address] Dr. Tisha Carr mAMP Negative Normal NEGATIVE [facility] Comment on above: Performed By: #### U RCX #### [facility] [address] [place] [address] Dr. Tisha Carr MTD Negative Normal NEGATIVE [facility] Comment on above: Performed By: #### U RCX #### [facility] [address] [place] [address] Dr. Tisha Carr OPI Negative Normal NEGATIVE [facility] Comment on above: Performed By: #### U RCX #### [facility] [address] [place] [address] Dr. Tisha Carr OXY Negative Normal NEGATIVE [facility] Comment on above: Performed By: #### U RCX #### [facility] [address] [place] [address] Dr. Tisha Carr PCP Negative Normal NEGATIVE [facility] Comment on above: Performed By: #### U RCX #### [facility] [address] [place] [address] Dr. Tisha Carr PPX Negative Normal NEGATIVE [facility] Comment on above: Performed By: #### U RCX #### [facility] [address] [place] [address] Dr. Tisha Carr TCA Negative Normal NEGATIVE [facility] Comment on above: Performed By: #### U RCX #### [facility] [address] [place] [address] Dr. Tisha Carr THC Positive Abnormal NEGATIVE [facility] Comment on above: Performed By: #### U RCX #### [facility] [address] [place] [address] Dr. Tisha Carr CBC AUTO DIFFon 06-21-2022 BASO # 0.0 103/ul Normal 0.0-0.1 [facility] Comment on above: Performed By: #### U RCX #### [facility] [address] [address] [address] Tisha Carr Basophils/100 WBC (Bld) 0.2 % Normal 0.2-2.0 [facility] Comment on above: Performed By: #### U RCX #### [facility] [address] [place] [address] Dr. Tisha Carr EO # 0.0 103/ul Normal 0.0-0.7 [facility] Comment on above: Performed By: #### U RCX #### [facility] [address] [place] [address] Dr. Tisha Carr Eosinophils/100 WBC (Bld) 0.2 % Critically low 0.9-7.0 [facility] Comment on above: Performed By: #### U RCX #### [facility] [address] [place] [address] Dr. Tisha Carr Erythrocyte distribution width (RBC) [Ratio] 12.3 % Normal 11.0-15.0 [facility] Comment on above: Performed By: #### U RCX #### [facility] [address] [place] [address] Dr. Tisha Carr Hematocrit (Bld) [Volume fraction] 43.1 % Normal 36.0-48.0 [facility] Comment on above: Performed By: #### U RCX #### [facility] [address] [place] [address] Dr. Tisah Carr Hemoglobin (Bld) [Mass/Vol] 15.1 g/dL Normal 12.0-16.0 [facility] Comment on above: Performed By: #### U RCX #### [facility] [address] [place] [address] Dr. Tisha Carr IG # 0.06 10e3/ul Critically high 0.00-0.03 [facility] Comment on above: Performed By: #### U RCX #### [facility] [address] [address] [address] Tisha Carr IG % 0.5 % Normal 0.0-0.5 [facility] Comment on above: Performed By: #### U RCX #### [facility] [address] [address] [address] Tisha Carr LYMPH # 1.0 103/ul Critically low 1.2-3.8 [facility] Comment on above: Performed By: #### U RCX #### [facility] [address] [address] [address] Tisha Carr Lymphocytes/100 WBC (Bld) 8.2 % Critically low 20.5-60.0 [facility] Comment on above: Performed By: #### U RCX #### [facility] [address] [place] [address] Dr. Tisha Carr MANUAL DIFF REQ NO Normal [facility] Comment on above: Performed By: #### U RCX #### [facility] [address] [address] [address] Tisha Carr MCH (RBC) [Entitic mass] 30.3 pg Normal 26.7-34.0 [facility] Comment on above: Performed By: #### U RCX #### [facility] [address] [place] [address] Dr. Tisha Carr MCHC (RBC) [Mass/Vol] 35.0 g/dL Normal 29.9-35.2 [facility] Comment on above: Performed By: #### U RCX #### [facility] [address] [address] [address] Tisha Carr MCV (RBC) [Entitic vol] 86.4 fL Normal 81.0-99.0 [facility] Comment on above: Performed By: #### U RCX #### [facility] [address] [place] [address] Dr. Tisha Carr MONO # 0.8 103/ul Normal 0.3-0.8 [facility] Comment on above: Performed By: #### U RCX #### [facility] [address] [address] [address] Tisha Carr Monocytes/100 WBC (Bld) 6.0 % Normal 1.7-12.0 [facility] Comment on above: Performed By: #### U RCX #### [facility] [address] [address] [address] Tisha Crar NEUT # 10.8 103/ul Critically high 1.4-6.5 [facility] Comment on above: Performed By: #### U RCX #### [facility] [address] [address] [address] Tisha Carr Neutrophils/100 WBC (Bld) 84.9 % Critically high 43.0-75.0 [facility] Comment on above: Performed By: #### U RCX #### [facility] [address] [address] [address] Tisha Carr Platelet mean volume (Bld) [Entitic vol] 10.8 fL Normal 9.5-13.5 [facility] Comment on above: Performed By: #### U RCX #### [facility] [address] [address] [address] Tisha Carr PLT 237 103/ul Normal 150-450 [facility] Comment on above: Performed By: #### U RCX #### [facility] [address] [address] [address] Tisha Carr RBC 4.99 106/ul Normal 4.20-5.40 [facility] Comment on above: Performed By: #### U RCX #### [facility] [address] [address] [address] Tisha Carr WBC 12.7 103/ul Critically high 4.0-11.0 [facility] Comment on above: Performed By: #### U RCX #### [facility] [address] [address] [address] Tisha Carr CRPon 06-21-2022 CRP 10.0 mg/dL Critically high <=1.0 [facility] Comment on above: Performed By: #### C RP, CMP, LIPA #### [facility] [address] [address] [address] Tisha Carr ER URINE PROFILEon 2 Bilirubin Ql (U) SMALL Abnormal NEGATIVE [facility] Comment on above: Performed By: #### YULY BRYANT, PREGU #### [facility] [address] [address] [address] Tisha Carr Clarity (U) CLEAR Normal CLEAR [facility] Comment on above: Performed By: #### YULY BRYANT, PREGU #### [facility] [address] [address] [address] Tisha Carr Color (U) YELLOW Normal YELLOW [facility] Comment on above: Performed By: #### YULY BRYANT, PREGU #### [facility] [address] [place] [address] Dr. Tisha Carr ERUREJI A micrscopic examina tion will be performed if indicated. Normal [facility] Comment on above: Performed By: #### YULY BRYANT, PREGU #### [facility] [address] [address] [address] Tisha Carr Glucose Ql (U) Negative Normal NEGATIVE [facility] Comment on above: Performed By: #### YULY BRYANT, PREGU #### [facility] [address] [address] [address] Tisha Carr Hemoglobin Ql (U) MODERATE Abnormal NEGATIVE [facility] Comment on above: Performed By: #### YULY BRYANT, PREGU #### [facility] [address] [address] [address] Tisha Carr Ketones Ql (U) 80 mg/dl Abnormal NEGATIVE [facility] Comment on above: Performed By: #### YULY BRYANT, PREGU #### [facility] [address] [place] [address] Dr. Tisha Carr LEUKOCYTES Negative Normal NEGATIVE [facility] Comment on above: Performed By: #### YULY BRYANT, PREGU #### [facility] [address] [address] [address] Tisha Carr Nitrite Ql (U) Negative Normal NEGATIVE [facility] Comment on above: Performed By: #### YULY BRYANT PREGU #### [facility] [address] [address] [address] Tisha Carr pH (U) 6.0 [pH] Normal 5-9 [facility] Comment on above: Performed By: #### YULY BRYANT PREGU #### [facility] [address] [address] [address] Tisha Carr SPEC GRAVITY 1.025 Normal 1.005-<=1.025 [facility] Comment on above: Performed By: #### YULY BRYANT PREGU #### [facility] [address] [place] [address] Dr. Tisha Carr UA PROTEIN TRACE Normal NEGATIVE/ TRACE [facility] Comment on above: Performed By: #### YULY BRYANT PREGU #### [facility] [address] [address] [address] Tisha Carr UR MICRO IND INDICATED Normal [facility] Comment on above: Performed By: #### YULY BRYANT PREGU #### [facility] [address] [address] [address] Tisha Carr Urobilinogen Qn (U) 1.0 {Alma'U}/dL Normal 0.2 - 1.0 [facility] Comment on above: Performed By: #### YULY BRYANT PREGU #### [facility] [address] [place] [address] Dr. Tisha Carr LACTATE/LACTIC ACIDon 2021 Lactate [Moles/Vol] 1.0 mmol/L Normal 0.4-1.9 [facility] Comment on above: Performed By: #### U RCX #### [facility] [address] [place] [address] Dr. Tisha Carr LIPASEon 06-21-2022 Lipase [Catalytic activity/Vol] 41.0 U/L Critically low 73.0-393.0 [facility] Comment on above: Performed By: #### C RP, CMP, LIPA #### [facility] [address] [address] [address] Tisha Carr URon 06-21-2022 , QUAL Negative Normal NEGATIVE [facility] Comment on above: Performed By: #### E RUR, UMICRO, PREGU #### [facility] [address] [address] [address] Tisha Carr PROF 14(COMP METB)on 022 Albumin [Mass/Vol] 4.0 g/dL Normal 3.4-5.0 [facility] Comment on above: Performed By: #### C RP, CMP, LIPA #### [facility] [address] [place] [address] Dr. Tisha Carr Albumin/Globulin [Mass ratio] 1.0 {ratio} Normal [facility] Comment on above: Performed By: #### C RP, CMP, LIPA #### [facility] [address] [place] [address] Dr. Tisha Carr ALP [Catalytic activity/Vol] 74 U/L Normal 46-116 [facility] Comment on above: Performed By: #### C RP, CMP, LIPA #### [facility] [address] [place] [address] Dr. Tisha Carr ALT [Catalytic activity/Vol] 33 U/L Normal 14-59 [facility] Comment on above: Performed By: #### C RP, CMP, LIPA #### [facility] [address] [place] [address] Dr. Tisha Carr Anion gap [Moles/Vol] 15.8 mmol/L Normal [facility] Comment on above: Performed By: #### C RP, CMP, LIPA #### [facility] [address] [place] [address] Dr. Tisha Carr AST [Catalytic activity/Vol] 17 U/L Normal 15-37 [facility] Comment on above: Performed By: #### C RP, CMP, LIPA #### [facility] [address] [address] [address] Tisha Carr Bilirubin [Mass/Vol] 1.3 mg/dL Critically high 0.2-1.0 [facility] Comment on above: Performed By: #### C RP, CMP, LIPA #### [facility] [address] [place] [address] Dr. Tisha Carr Calcium [Mass/Vol] 9.2 mg/dL Normal 8.5-10.1 [facility] Comment on above: Performed By: #### C RP, CMP, LIPA #### [facility] [address] [place] [address] Dr. Tisha Carr Chloride [Moles/Vol] 102 mmol/L Normal 98-107 [facility] Comment on above: Performed By: #### C RP, CMP, LIPA #### [facility] [address] [place] [address] Dr. Tisha Carr CO2 [Moles/Vol] 22.7 mmol/L Normal 21.0-32.0 [facility] Comment on above: Performed By: #### C RP, CMP, LIPA #### [facility] [address] [place] [address] Dr. Tisha Carr Creatinine [Mass/Vol] 0.70 mg/dL Normal 0.55-1.02 [facility] Comment on above: Performed By: #### C RP, CMP, LIPA #### [facility] [address] [place] [address] Dr. Tisha Carr EGFR-AF ZIMBABWEAN >60 Normal >=60 [facility] Comment on above: Performed By: #### C RP, CMP, LIPA #### [facility] [address] [place] [address] Dr. Tisha Carr EGFR-NON AF ZIMBABWEAN >60 Normal >=60 [facility] Comment on above: Performed By: #### C RP, CMP, LIPA #### [facility] [address] [place] [address] Dr. iTsha Carr Globulin (S) [Mass/Vol] 4.2 g/dL Normal [facility] Comment on above: Performed By: #### C RP, CMP, LIPA #### [facility] [address] [place] [address] Dr. Tisha Carr Glucose [Mass/Vol] 93 mg/dL Normal 74-106 [facility] Comment on above: Performed By: #### C RP, CMP, LIPA #### [facility] [address] [place] [address] Dr. Tisha Carr Potassium [Moles/Vol] 3.5 mmol/L Normal 3.5-5.1 [facility] Comment on above: Performed By: #### C RP, CMP, LIPA #### [facility] [address] [place] [address] Dr. Tisha Carr Protein [Mass/Vol] 8.2 g/dL Normal 6.4-8.2 [facility] Comment on above: Performed By: #### C RP, CMP, LIPA #### [facility] [address] [place] [address] Dr. Tisha Carr Sodium [Moles/Vol] 137 mmol/L Normal 136-145 [facility] Comment on above: Performed By: #### C RP, CMP, LIPA #### [facility] [address] [place] [address] Dr. Tisha Carr Urea nitrogen [Mass/Vol] 16.0 mg/dL Normal 7.0-18.0 [facility] Comment on above: Performed By: #### C RP, CMP, LIPA #### [facility] [address] [place] [address] Dr. Tisha Carr Urea nitrogen/Creatinin e [Mass ratio] 22.9 mg/mg Normal [facility] Comment on above: Performed By: #### C RP, CMP, LIPA #### [facility] [address] [place] [address] Dr. Tisha Carr URINE MICROSCOPIC ONLYon BACTERIA TRACE Abnormal NONE SEEN [facility] Comment on above: Performed By: #### E RUR, UMICRO, PREGU #### [facility] [address] [place] [address] Dr. Tisha Carr Bacteria identified Cx Nom (U) NOT INDICATED Normal [facility] Comment on above: Performed By: #### E RUR, UMICRO, PREGU #### [facility] [address] [place] [address] Dr. Tisha Carr CAST NONE SEEN Normal NONE SEEN [facility] Comment on above: Performed By: #### E RUR, UMICRO, PREGU #### [facility] [address] [address] [address] Tisha Carr Crystals LM Nom (Urine sed) NONE SEEN Normal NONE SEEN [facility] Comment on above: Performed By: #### E RUR, UMICRO, PREGU #### [facility] [address] [place] [address] Dr. Tisha Carr Epithelial cells LM Ql (Urine sed) MODERATE Abnormal NONE SEEN /RARE [facility] Comment on above: Performed By: #### E RUR, UMICRO, PREGU #### [facility] [address] [place] [address] Dr. Tisha Carr MUCOUS MODERATE Abnormal NONE SEEN [facility] Comment on above: Performed By: #### E RUR, UMICRO, PREGU #### [facility] [address] [place] [address] Dr. Tisha Carr RBC 0-2 Normal 0-2 [facility] Comment on above: Performed By: #### E RUR, UMICRO, PREGU #### [facility] [address] [place] [address] Dr. Tisha Carr WBC 0-2 Abnormal NONE SEEN [facility] Comment on above: Performed By: #### E RUR, UMICRO, PREGU #### [facility] [address] [place] [address] Dr. Tisha Carr PAP ACOG PANEL 2: 21 to 29on 04-11-2022 . . Normal [facility] Comment on above: Performed By: #### U RCX #### [facility] [address] [place] [address] Dr. Tisha Carr Age Gdln ACOG Testing - Normal [facility] Comment on above: Performed By: #### U RCX #### [facility] [address] [place] [address] Dr. Tisha Carr DIAGNOSIS: Comment Normal [facility] Comment on above: Result Comment: NEGA TIVE FOR INTRAEPITHELIAL LESION OR MALIGNANCY. FUNGAL ORGANISMS MORPHOLOGICALLY CONSISTENT WITH SHEREE SPECIES ARE PRESENT. Performed By: #### U RCX #### [facility] [address] [place] [address] Dr. Tisha Carr Methodology: Comment Normal [facility] Comment on above: Result Comment: This liquid based ThinPrep(R) pap test was screened with the use of an image guided system. Performed By: #### U RCX #### [facility] [address] [place] [address] Dr. Tisha Carr Note: Comment Normal [facility] Comment on above: Result Comment: The Pap smear is a screening test designed to aid in the detection of premalignant and malignant conditions of the uterine cervix. It is not a diagnostic procedure and should not be used as the sole means of detecting cervical cancer. Both false-positive and false-negative reports do occur. . Performed By: #### U RCX #### [facility] [address] [place] [address] Dr. Tisha Carr Performed by: Comment Normal [facility] Comment on above: Result Comment: Caleb Schaeffer, Chipping Machine Operator (ASCP) Performed By: #### U RCX #### [facility] [address] [place] [address] Dr. Tisha Carr Reflex Criteria: Comment Normal [facility] Comment on above: Result Comment: The HPV DNA reflex criteria were not met with this specimen result therefore, no HPV testing was performed. . Performed By: #### U RCX #### [facility] [address] [place] [address] Dr. Tisha Carr Specimen adequacy: Comment Normal [facility] Comment on above: Result Comment: Sati sfactory for evaluation. Endocervical and/or squamous metaplastic cells (endocervical component) are present. Performed By: #### U RCX #### [facility] [address] [place] [address] Dr. Tisha Carr CULTURE URINEon 01-08-2022 CULTURE [...] Trimethoprim/Sulfamethox azole <=20 S F Normal [facility] Comment on above: Performed By: #### U RCX #### [facility] [address] [place] [address] Dr. Tisha Carr Covid-19 PCR (CVDTB)on 12-23 SARS-CoV-2 (COVID-19) RNA OC+probe Ql (Unsp spec) Not detected Normal NOT DETECTED [facility] Comment on above: Result Comment: This test is not yet approved or cleared by the [place] FDA. When there are no FDA-approved or cleared tests available, and other criteria are met, FDA can make tests available under an emergency access mechanism called an Emergency Use Authorization (EUA). The EUA for this test is supported by the [place] of Health and Human Service's (HHS's) declaration [...] SARS-CoV-2. Performed By: #### C VDTBH #### [facility] [address] [place] [address] Dr. Tisha Carr ER URINE PROFILEon 2 Bilirubin Ql (U) MODERATE Abnormal NEGATIVE [facility] Comment on above: Performed By: #### YULY BRYANT, PREGU #### [facility] [address] [place] [address] Dr. Tisha Carr Clarity (U) CLEAR Normal CLEAR [facility] Comment on above: Performed By: #### YULY BRYANT, PREGU #### [facility] [address] [address] [address] Tisha Carr Color (U) DK. YELLOW Normal YELLOW [facility] Comment on above: Performed By: #### YULY BRYANT, PREGU #### [facility] [address] [place] [address] Dr. Tisha QUEZADA A micrscopic examina tion will be performed if indicated. Normal [facility] Comment on above: Performed By: #### YULY BRYANT, PREGU #### [facility] [address] [place] [address] Dr. Tisha Carr Glucose Ql (U) Negative Normal NEGATIVE [facility] Comment on above: Performed By: #### YULY BRYANT, PREGU #### [facility] [address] [place] [address] Dr. Tisha Carr Hemoglobin Ql (U) Negative Normal NEGATIVE [facility] Comment on above: Performed By: #### YULY BRYANT, PREGU #### [facility] [address] [place] [address] Dr. Tisha Carr Ketones Ql (U) >=80 Abnormal NEGATIVE [facility] Comment on above: Performed By: #### LEIGH BRYANTICELLE, PREGU #### [facility] [address] [place] [address] Dr. Tisha Carr LEUKOCYTES TRACE Abnormal NEGATIVE [facility] Comment on above: Performed By: #### Sofi MEEKRYULY, PREGU #### [facility] [address] [place] [address] Dr. Tisha Carr Nitrite Ql (U) Negative Normal NEGATIVE [facility] Comment on above: Performed By: #### YULY BRYANT PREGU #### [facility] [address] [place] [address] Dr. Tisha Carr pH (U) 6.0 [pH] Normal 5-9 [facility] Comment on above: Performed By: #### YULY BRYANT PREGU #### [facility] [address] [place] [address] Dr. Tisha Carr Protein (U) [Mass/Vol] 100 mg/dL Abnormal NEGATIVE/ TRACE [facility] Comment on above: Performed By: #### YULY BRYANT PREGU #### [facility] [address] [place] [address] Dr. Tisha Carr SPEC GRAVITY 1.025 Normal 1.005-<=1.025 [facility] Comment on above: Performed By: #### YULY BRYANT PREGU #### [facility] [address] [place] [address] Dr. Tisha Carr UR MICRO IND INDICATED Normal [facility] Comment on above: Performed By: #### YULY BRYANT PREGU #### [facility] [address] [place] [address] Dr. Tisha Carr Urobilinogen Qn (U) 1.0 {Alma'U}/dL Normal 0.2 - 1.0 [facility] Comment on above: Performed By: #### YULY BRYANT PREGU #### [facility] [address] [place] [address] Dr. Tisha Carr INFLUENZA A AND B [facility] BELOW Normal [facility] Comment on above: Result Comment: Nega tive for Flu A protein angiten. Infection due to Flu A cannot be ruled out. Flu A angiten in the sample may be below the detection limit of the test. Performed By: #### U RCX #### [facility] [address] [place] [address] Dr. Tisha Carr INFLUBNEGH SEE BELOW Normal [facility] Comment on above: Result Comment: Nega tive for Flu B protein antigen. Infection due to Flu B cannot be ruled out. Flu B antigen in the sample may be below the detection limit of the test. Performed By: #### U RCX #### [facility] [address] [place] [address] Dr. Tisha Carr INFLUENZA A AG Negative Normal NEGATIVE SEE COMMENT [facility] Comment on above: Performed By: #### U RCX #### [facility] [address] [place] [address] Dr. Tisha Carr INFLUENZA B AG Negative Normal NEGATIVE SEE COMMENT [facility] Comment on above: Performed By: #### U RCX #### [facility] [address] [place] [address] Dr. Tisha Carr INTERNAL CONTROLS Within Normal Limits Normal Wi thin Normal Limits [facility] Comment on above: Performed By: #### U RCX #### [facility] [address] [place] [address] Dr. Tisha Carr URon 01-06-2022 , QUAL Negative Normal NEGATIVE [facility] Comment on above: Performed By: #### E RUR, UMICRO, PREGU #### [facility] [address] [place] [address] Dr. Tisha Carr URINE MICROSCOPIC ONLYon BACTERIA SMALL Abnormal NONE SEEN [facility] Comment on above: Performed By: #### U RCX #### [facility] [address] [place] [address] Dr. Tisha Carr Bacteria identified Cx Nom (U) INDICATED Normal [facility] Comment on above: Performed By: #### U RCX #### [facility] [address] [place] [address] Dr. Tisha Carr CAST NONE SEEN Normal NONE SEEN [facility] Comment on above: Performed By: #### U RCX #### [facility] [address] [place] [address] Dr. Tisha Carr Crystals LM Nom (Urine sed) NONE SEEN Normal NONE SEEN [facility] Comment on above: Performed By: #### U RCX #### [facility] [address] [address] [address] Tisha Carr Epithelial cells LM Ql (Urine sed) MANY Abnormal NONE SEEN /RARE [facility] Comment on above: Performed By: #### U RCX #### [facility] [address] [address] [address] Tisha Carr MUCOUS LARGE Abnormal NONE SEEN [facility] Comment on above: Performed By: #### U RCX #### [facility] [address] [address] [address] Tisha Carr RBC NONE SEEN Abnormal 0-2 [facility] Comment on above: Performed By: #### U RCX #### [facility] [address] [place] [address] Dr. Tisha Carr WBC 5-10 Abnormal NONE SEEN [facility] Comment on above: Performed By: #### U RCX #### [facility] [address] [address] [address] Tisha Carr Vital Signs Date Time [...] Available Start: 2024 End: 2024 ambulatory BELKIS EJSSICA Not Available Start: 12-22-2023 End: 12-22-2023 ambulatory [...] EST Routine [facility] [address] [address] [id number] JessicaBelkis, DO [address] [place] [address] [facility] Start: 09-22-2023 End: 09-22-2024 Alpha fetoprotein, maternal Alpha fetoprotein, maternal Lab Routine Second trimester Need for maternal serum alpha-protein (MSAFP) screening Expected: 09/22/2023 (Approximate), Expires: 09/22/2024 [facility] Comment on above: Expected: 09/22/2023 (Approximate), Expires: 09/22/2024 Start: 09-22-2023 End: 09-22-2024 US for US OB ANATOMY SINGLE W US OB CERVICAL LENGTH Imaging Routine Screening, , for anatomic survey Expected: 09/22/2023 (Approximate), Expires: 09/22/2024 [facility] Comment on above: Expected: 09/22/2023 (Approximate), Expires: 09/22/2024 CHLAMYDIA TRACHOMATI S (GENITO/STI) CHLAMYDIA TRACHOMATIS (GENITO/STI) Lab Routine Exposure to STD Ordered: 09/22/2023 [facility] Comment on above: Ordered: 09/22/2023 Cytology Cervical or vaginal smear or scraping study Pap Smear Pathology and Cytology Routine Well woman exam with routine gynecological exam Ordered: 09/22/2023 [facility] Comment on above: Ordered: 09/22/2023 Neisseria gonorrhoea e DNA [Presence] in Unspecified specimen by OC with probe detection Neisseria gonorrhea DNA probe, direct Lab Routine Exposure to STD Ordered: 09/22/2023 [facility] Comment on above: Ordered: 09/22/2023 SURESWAB(R) ADVANCED VAGINITIS PLUS, TMA SURESWAB(R) ADVANCED VAGINITIS PLUS, TMA Pathology and Cytology Routine Exposure to STD Ordered: 09/22/2023 [facility] Work Phone: Comment on above: Ordered: 09/22/2023 Payers Date Payer Category Payer Medicaid [employer] [place] [employer] [id number] 2021-Present [address] [place] [address] [id number] 2000 Unknown [id number] [id number] 2000 Unknown [id number] 2.16.840.1.991876.3.579.2.593 2000 Unknown [id number] 2.16.840.1.145864.3.579.2.593 2000 Unknown [id number] 2.16.840.1.436327.3.579.2.593 2000 Unknown [id number] 2.16.840.1.325405.3.579.2.1259 2000 Unknown [id number] 2.16.840.1.285303.3.579.2.9 2000 Unknown [id number] 2.16.840.1.847202.3.579.2.1259 2000 Unknown [id number] 2.16.840.1.600717.3.579.2.1259 2000 Unknown [id number] 2.16.840.1.744962.3.579.2.1259 2000 Unknown [id number] 2.16.840.1.445253.3.579.2.1259 2000 Unknown [id number] 2.16.840.1.320824.3.579.2.9 2000 Unknown [id number] 2.16.840.1.793006.3.579.2.9 2000 Unknown [id number] 2.16.840.1.295319.3.579.2.125 2000 Unknown [id number] 2.16.840.1.618394.3.579.2.1259 1959 Unknown [id number] Social History Date Type [facility]ail [facility] Start: 05-22-2023 [facility] Start: 2000 Sex Assigned At Female [facility] Start: 07-03-2023 Gender identity Identifies as female gender (finding) [facility] Sexual orientation Not on file [facility] History of Present illness Narrative 09-22-2023 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 [...] nursing note reviewed. Exam conducted with a crystal cutter present. Vitals: There is no height or [...] DATE CREATED AUTHOR 11/07/2022 [facility] DATE CREATED AUTHOR 'S ORGANIZ ATION 01/14/2024 [...] BE BASED ON THE PRIMARY CLINICAL RECORDS. [employer] provides no warranty or guarantee of the accuracy or completeness of information in this document.
[2024-01-24 11:36] VITALS: BP 137/64; PULSE 99
== END 2024-01-24 12:02 | disposition home or self-care (01) ==
LOC: US 08:03 → FBC 11:08
PROVIDERS: PCP Nurse Practitioner Family; Visit Provider Obstetrics & Gynecology
DX: O24.414 Gestational diabetes mellitus in pregnancy, insulin controlled (principal); Z3A.37 37 weeks gestation of pregnancy
CPT/HCPCS: 76818

== ENCOUNTER 2024-01-27 21:04 | Outpatient (REF) | payer OTHER, SELFPAY ==
--- OUTSIDE RECORDS SUMMARY | 2024-01-27 21:10 | XMS_ITS | CCD ---
Author Organization [facility] Inform ion Partnership [facility] Care Team Providers Care Performance Improvement Specialist Name Role Phone JOSE ., LITA [...] (1 source) Ibuprofen Drug Allergy 01-15-2016 [facility] Repository (2 sources) Ibuprofen Drug Allergy 07-10-2023 Unknown [facility] Healthcare Work Phone: Medications Current Medications Medication [...] GDLNon AGE GDLN ACOG TESTING Note . [facility] Comment on above: TESTS RESULT FLAG UN ITS REF RANGE LAB Clinician Provided Cytology Information Source.............Cervix Other.............. No. of containers..01 ThinPrep Vial Age Algo ACOG Bina... - 01 FLAG LEGEND: L-Low Normal,H-High Normal,LL-Alert Low,HH-Alert High <-Panic Low,>-Panic High,A-Abnormal,AA-Critical Abnormal Performed at: 01 =G [address] [place] [id number] Lali Holloway MD, IGP, RFX APTIMA HPV ASCU Note . [facility] Comment on above: TESTS RESULT FLAG UN ITS REF RANGE LAB DIAGNOSIS: 02 NEGATIVE FOR INTRAEPITHELIAL LESION OR MALIGNANCY. Specimen adequacy: 02 Satisfactory for evaluation. No endocervical component is identified. An endocervical component is not commonly seen in the patient. Performed by: 02 Kieran Pickering, Railroad Car Repair Supervisor ([facility]) . 02 Note: Note 02 [...] Low,>-Panic High,A-Abnormal,AA-Critical Abnormal Performed at: [address] [facility] [address] [place] [address] Lali Holloway MD, Performed at: =G - [facility] [address] [id number] Instructor Hairspring: Lali Holloway MD, Phone: [phone] Performed at: - [facility] [id number] Instructor Hairspring: Lali Holloway MD, Phone: [phone] [facility] Urinalysis macro (dipstick) panel (U)on 09-22-2023 Bilirubin, UA Negative Negative - 4(70) +++ mg/dL [facility] Blood, UA Negative Negative - 50 Flash/mcL [facility] Clarity, UA Clear [facility] Color, UA Yellow [facility] Glucose, UA Negative Negative - 1999(110) ++++ mg/dL [facility] Interpretation and review of laboratory results Abnormal [facility] Ketones, UA Positive Negative - 160(16) ++++ mg/dL [facility] Leukocytes, UA Negative Negative - 500+++ Taylor/mcL [facility] Nitrite, UA Negative Negative - Positive [facility] pH, UA 5.5 5 - 9 [facility] Protein, UA Negative Negative - 1999(20) ++++ mg/dL [facility] Spec Grav, UA 1.020 1 - 1.03 [facility] Urobilinogen, UA 0.2 0.2 - 12 mg/dL [facility] COMPLIANCE DRUG SCREENon PDF . Normal [facility] Comment on above: Performed By: #### U RCX #### [facility] [address] [place] [address] Dr. Tisha Carr Summary FINAL Normal [facility] Comment on above: Result Comment: [...] test is not intended to distinguish between eyslo-0-[id number], the predominant form of THC in most herbal or marijuana-based products, and xamzf-1-[id number]. Methylphenidate PRESENT UNEXPECTED Ritalinic Acid PRESENT UNEXPECTED [...] = Performed By: #### U RCX #### [facility] [address] [address] [address] Tisha Carr URIC ACID RAND URINEon 10-31 Uric Acid, Urine 67.3 mg/dL Normal Not Estab. [facility] Comment on above: Performed By: #### U RCX #### [facility] [address] [place] [address] Dr. Tisha Carr DRUG SCREEN RAPID (URINE)on 10-30-2022 AMP Negative Normal NEGATIVE [facility] Comment on above: Performed By: #### U RCX #### [facility] [address] [place] [address] Dr. Tisha Carr BAR Negative Normal NEGATIVE [facility] Comment on above: Performed By: #### U RCX #### [facility] [address] [place] [address] Dr. Tisha Carr BUP Negative Normal NEGATIVE [facility] Comment on above: Performed By: #### U RCX #### [facility] [address] [place] [address] Dr. Tisha Carr BZO Negative Normal NEGATIVE [facility] Comment on above: Performed By: #### U RCX #### [facility] [address] [place] [address] Dr. Tisha Carr SOCRATES Negative Normal NEGATIVE [facility] Comment on above: Performed By: #### U RCX #### [facility] [address] [place] [address] Dr. Tisha Carr CUT-OFFS SEE BELOW Normal [facility] Comment on above: Result Comment: AMP (Amphetamine): 500ng/mL, BAR (Barbituates): 200 ng/mL, BZO (Benzodiazepines): 150 ng/mL, BUP (Buprenorphine): 10 ng/mL, SOCRATES (Cocaine): 150 ng/mL, mAMP (Methamphetamine): 500 ng/mL, MTD (Methadone): 200 ng/mL, OPI (Opiates): 100 ng/mL, OXY (Oxycodone): 100 ng/mL, PCP (Phencyclidine): 25 ng/mL, PPX (Propoxyphene): 300 ng/mL, THC (Cannabinoids): 50 ng/mL, TCA (Trycyclic Antidepressants): 300 ng/mL Performed By: #### U RCX #### [facility] [address] [place] [address] Dr. Tisha Carr DRUG CUT HEADER DRUG CLASS TEST SYST EM CUT-OFF CONCENTRATIONS ARE FOLLOWS: Normal [facility] Comment on above: Performed By: #### U RCX #### [facility] [address] [place] [address] Dr. Tisha Carr mAMP Negative Normal NEGATIVE [facility] Comment on above: Performed By: #### U RCX #### [facility] [address] [place] [address] Dr. Tisha Carr MTD Negative Normal NEGATIVE [facility] Comment on above: Performed By: #### U RCX #### [facility] [address] [place] [address] Dr. Tihsa Carr OPI Negative Normal NEGATIVE [facility] Comment on above: Performed By: #### U RCX #### [facility] [address] [place] [address] Dr. Tisha Carr OXY Negative Normal NEGATIVE [facility] Comment on above: Performed By: #### U RCX #### [facility] [address] [place] [address] Dr. Tisha Carr PCP Negative Normal NEGATIVE [facility] Comment on above: Performed By: #### U RCX #### [facility] [address] [place] [address] Dr. Tisha Carr PPX Negative Normal NEGATIVE [facility] Comment on above: Performed By: #### U RCX #### [facility] [address] [place] [address] Dr. Tisha Carr TCA Negative Normal NEGATIVE [facility] Comment on above: Performed By: #### U RCX #### [facility] [address] [place] [address] Dr. Tisha Carr THC Positive Abnormal NEGATIVE [facility] Comment on above: Performed By: #### U RCX #### [facility] [address] [place] [address] Dr. Tisha Carr CBC AUTO DIFFon 06-21-2022 BASO # 0.0 103/ul Normal 0.0-0.1 [facility] Comment on above: Performed By: #### U RCX #### [facility] [address] [address] [address] Tisha Carr Basophils/100 WBC (Bld) 0.2 % Normal 0.2-2.0 [facility] Comment on above: Performed By: #### U RCX #### [facility] [address] [place] [address] Dr. Tisha Carr EO # 0.0 103/ul Normal 0.0-0.7 [facility] Comment on above: Performed By: #### U RCX #### [facility] [address] [place] [address] Dr. Tisha Carr Eosinophils/100 WBC (Bld) 0.2 % Critically low 0.9-7.0 [facility] Comment on above: Performed By: #### U RCX #### [facility] [address] [place] [address] Dr. Tisha Carr Erythrocyte distribution width (RBC) [Ratio] 12.3 % Normal 11.0-15.0 [facility] Comment on above: Performed By: #### U RCX #### [facility] [address] [place] [address] Dr. Tisha Carr Hematocrit (Bld) [Volume fraction] 43.1 % Normal 36.0-48.0 [facility] Comment on above: Performed By: #### U RCX #### [facility] [address] [place] [address] Dr. Tisha Carr Hemoglobin (Bld) [Mass/Vol] 15.1 g/dL Normal 12.0-16.0 [facility] Comment on above: Performed By: #### U RCX #### [facility] [address] [place] [address] Dr. Tisha Carr IG # 0.06 10e3/ul Critically high 0.00-0.03 [facility] Comment on above: Performed By: #### U RCX #### [facility] [address] [address] [address] Tisha Carr IG % 0.5 % Normal 0.0-0.5 [facility] Comment on above: Performed By: #### U RCX #### [facility] [address] [address] [address] Tisha Carr LYMPH # 1.0 103/ul Critically low 1.2-3.[address] [facility] Comment on above: Performed By: #### U RCX #### [facility] [address] [address] [address] Tisha Carr Lymphocytes/100 WBC (Bld) 8.2 % Critically low 20.5-60.0 [facility] Comment on above: Performed By: #### U RCX #### [facility] [address] [place] [address] Dr. Tisha Carr MANUAL DIFF REQ NO Normal [facility] Comment on above: Performed By: #### U RCX #### [facility] [address] [address] [address] Tisha Carr MCH (RBC) [Entitic mass] 30.3 pg Normal 26.7-34.0 [facility] Comment on above: Performed By: #### U RCX #### [facility] [address] [place] [address] Dr. Tisha Carr MCHC (RBC) [Mass/Vol] 35.0 g/dL Normal 29.9-35.2 [facility] Comment on above: Performed By: #### U RCX #### [facility] [address] [address] [address] Tisha Carr MCV (RBC) [Entitic vol] 86.4 fL Normal 81.0-99.0 [facility] Comment on above: Performed By: #### U RCX #### [facility] [address] [place] [address] Dr. Tisha Carr MONO # 0.8 103/ul Normal 0.3-0.8 [facility] Comment on above: Performed By: #### U RCX #### [facility] [address] [address] [address] Tisha Carr Monocytes/100 WBC (Bld) 6.0 % Normal 1.7-12.0 [facility] Comment on above: Performed By: #### U RCX #### [facility] [address] [address] [address] Tisha Carr NEUT # 10.8 103/ul Critically high 1.4-6.5 [facility] Comment on above: Performed By: #### U RCX #### [facility] [address] [address] [address] Tisha Carr Neutrophils/100 WBC (Bld) 84.9 % Critically high 43.0-75.0 [facility] Comment on above: Performed By: #### U RCX #### [facility] [address] [address] [address] Tisha Carr Platelet mean volume (Bld) [Entitic vol] 10.8 fL Normal 9.5-13.5 [facility] Comment on above: Performed By: #### U RCX #### [facility] [address] [address] [address] Tisah Carr PLT 237 103/ul Normal 150-450 [facility] Comment on above: Performed By: #### U RCX #### [facility] [address] [address] [address] Tisha Carr RBC 4.99 106/ul Normal 4.20-5.40 [facility] Comment on above: Performed By: #### U RCX #### [facility] [address] [address] [address] Tisha Carr WBC 12.7 103/ul Critically high 4.0-11.0 [facility] Comment on above: Performed By: #### U RCX #### [facility] [address] [address] [address] Tisha Carr CRPon 06-21-2022 CRP 10.0 mg/dL Critically high <=1.0 [facility] Comment on above: Performed By: #### C RP, CMP, LIPA #### [facility] [address] [address] [address] Tisha Carr ER URINE PROFILEon 2 Bilirubin Ql (U) SMALL Abnormal NEGATIVE [facility] Comment on above: Performed By: #### YULY BRYANT, PREGU #### [facility] [address] [address] [address] Tisha Carr Clarity (U) CLEAR Normal CLEAR [facility] Comment on above: Performed By: #### YULY BRYANT, PREGU #### [facility] [address] [address] [address] Tisha Carr Color (U) YELLOW Normal YELLOW [facility] Comment on above: Performed By: #### YULY BRYANT, PREGU #### [facility] [address] [place] [address] Dr. Tisha Carr ERUREJI A micrscopic examina tion will be performed if indicated. Normal [facility] Comment on above: Performed By: #### YULY BRYANT, PREGU #### [facility] [address] [address] [address] Tisha Carr Glucose Ql (U) Negative Normal NEGATIVE [facility] Comment on above: Performed By: #### YULY BRYANT, PREGU #### [facility] [address] [address] [address] Tisha Carr Hemoglobin Ql (U) MODERATE Abnormal NEGATIVE [facility] Comment on above: Performed By: #### YULY BRYANT, PREGU #### [facility] [address] [address] [address] Tisha Carr Ketones Ql (U) 80 mg/dl Abnormal NEGATIVE [facility] Comment on above: Performed By: #### YULY BRYANT, PREGU #### [facility] [address] [place] [address] Dr. Tisha Carr LEUKOCYTES Negative Normal NEGATIVE [facility] Comment on above: Performed By: #### YULY BRYANT, PREGU #### [facility] [address] [address] [address] Tisha Carr Nitrite Ql (U) Negative Normal NEGATIVE [facility] Comment on above: Performed By: #### YULY BRYANT PREGU #### [facility] [address] [address] [address] Tisha Carr pH (U) 6.0 [pH] Normal 5-9 [facility] Comment on above: Performed By: #### YULY BRYANT PREGU #### [facility] [address] [address] [address] Tisha Carr SPEC GRAVITY 1.025 Normal 1.005-<=1.025 [facility] Comment on above: Performed By: #### YULY BRYANT PREGU #### [facility] [address] [place] [address] Dr. Tisha Carr UA PROTEIN TRACE Normal NEGATIVE/ TRACE [facility] Comment on above: Performed By: #### YULY BRYANT PREGU #### [facility] [address] [address] [address] Tisha Carr UR MICRO IND INDICATED Normal [facility] Comment on above: Performed By: #### YULY BRYANT PREGU #### [facility] [address] [address] [address] Tisha Carr Urobilinogen Qn (U) 1.0 {Alma'U}/dL Normal 0.2 - 1.0 [facility] Comment on above: Performed By: #### YULY BRYANT PREGU #### [facility] [address] [place] [address] Dr. Tisha Carr LACTATE/LACTIC ACIDon 2021 Lactate [Moles/Vol] 1.0 mmol/L Normal 0.4-1.9 [facility] Comment on above: Performed By: #### U RCX #### [facility] [address] [place] [address] Dr. Tisha Carr LIPASEon 06-21-2022 Lipase [Catalytic activity/Vol] 41.0 U/L Critically low 73.0-393.0 [facility] Comment on above: Performed By: #### C RP, CMP, LIPA #### [facility] [address] [address] [address] Tisha Carr URon 06-21-2022 , QUAL Negative Normal NEGATIVE [facility] Comment on above: Performed By: #### E RUR, UMICRO, PREGU #### [facility] [address] [address] [address] Tisha Carr PROF 14(COMP METB)on 022 Albumin [Mass/Vol] 4.0 g/dL Normal 3.4-5.0 [facility] Comment on above: Performed By: #### C RP, CMP, LIPA #### [facility] [address] [place] [address] Dr. Tisha Carr Albumin/Globulin [Mass ratio] 1.0 {ratio} Normal [facility] Comment on above: Performed By: #### C RP, CMP, LIPA #### [facility] [address] [place] [address] Dr. Tisha Carr ALP [Catalytic activity/Vol] 74 U/L Normal 46-116 [facility] Comment on above: Performed By: #### C RP, CMP, LIPA #### [facility] [address] [place] [address] Dr. Tisha Carr ALT [Catalytic activity/Vol] 33 U/L Normal 14-59 [facility] Comment on above: Performed By: #### C RP, CMP, LIPA #### [facility] [address] [place] [address] Dr. Tisha Carr Anion gap [Moles/Vol] 15.8 mmol/L Normal [facility] Comment on above: Performed By: #### C RP, CMP, LIPA #### [facility] [address] [place] [address] Dr. Tisha Carr AST [Catalytic activity/Vol] 17 U/L Normal 15-37 [facility] Comment on above: Performed By: #### C RP, CMP, LIPA #### [facility] [address] [address] [address] Tisha Carr Bilirubin [Mass/Vol] 1.3 mg/dL Critically high 0.2-1.0 [facility] Comment on above: Performed By: #### C RP, CMP, LIPA #### [facility] [address] [place] [address] Dr. Tisha Carr Calcium [Mass/Vol] 9.2 mg/dL Normal 8.5-10.1 [facility] Comment on above: Performed By: #### C RP, CMP, LIPA #### [facility] [address] [place] [address] Dr. Tisha Carr Chloride [Moles/Vol] 102 mmol/L Normal 98-107 [facility] Comment on above: Performed By: #### C RP, CMP, LIPA #### [facility] [address] [place] [address] Dr. Tisha Carr CO2 [Moles/Vol] 22.7 mmol/L Normal 21.0-32.0 [facility] Comment on above: Performed By: #### C RP, CMP, LIPA #### [facility] [address] [place] [address] Dr. Tisha Carr Creatinine [Mass/Vol] 0.70 mg/dL Normal 0.55-1.02 [facility] Comment on above: Performed By: #### C RP, CMP, LIPA #### [facility] [address] [place] [address] Dr. Tisha Carr EGFR-AF PAKISTANI >60 Normal >=60 [facility] Comment on above: Performed By: #### C RP, CMP, LIPA #### [facility] [address] [place] [address] Dr. Tisha Carr EGFR-NON AF PAKISTANI >60 Normal >=60 [facility] Comment on above: Performed By: #### C RP, CMP, LIPA #### [facility] [address] [place] [address] Dr. Tisha Carr Globulin (S) [Mass/Vol] 4.2 g/dL Normal [facility] Comment on above: Performed By: #### C RP, CMP, LIPA #### [facility] [address] [place] [address] Dr. Tisha Carr Glucose [Mass/Vol] 93 mg/dL Normal 74-106 [facility] Comment on above: Performed By: #### C RP, CMP, LIPA #### [facility] [address] [place] [address] Dr. Tisha Carr Potassium [Moles/Vol] 3.5 mmol/L Normal 3.5-5.1 [facility] Comment on above: Performed By: #### C RP, CMP, LIPA #### [facility] [address] [place] [address] Dr. Tisha Carr Protein [Mass/Vol] 8.2 g/dL Normal 6.4-8.2 [facility] Comment on above: Performed By: #### C RP, CMP, LIPA #### [facility] [address] [place] [address] Dr. Tisha Carr Sodium [Moles/Vol] 137 mmol/L Normal 136-145 [facility] Comment on above: Performed By: #### C RP, CMP, LIPA #### [facility] [address] [place] [address] Dr. Tisha Carr Urea nitrogen [Mass/Vol] 16.0 mg/dL Normal 7.0-18.0 [facility] Comment on above: Performed By: #### C RP, CMP, LIPA #### [facility] [address] [place] [address] Dr. Tisha Carr Urea nitrogen/Creatinin e [Mass ratio] 22.9 mg/mg Normal [facility] Comment on above: Performed By: #### C RP, CMP, LIPA #### [facility] [address] [place] [address] Dr. Tisha Carr URINE MICROSCOPIC ONLYon BACTERIA TRACE Abnormal NONE SEEN [facility] Comment on above: Performed By: #### E RUR, UMICRO, PREGU #### [facility] [address] [place] [address] Dr. Tisha Carr Bacteria identified Cx Nom (U) NOT INDICATED Normal [facility] Comment on above: Performed By: #### E RUR, UMICRO, PREGU #### [facility] [address] [place] [address] Dr. Tisha Carr CAST NONE SEEN Normal NONE SEEN [facility] Comment on above: Performed By: #### E RUR, UMICRO, PREGU #### [facility] [address] [address] [address] Tisha Carr Crystals LM Nom (Urine sed) NONE SEEN Normal NONE SEEN [facility] Comment on above: Performed By: #### E RUR, UMICRO, PREGU #### [facility] [address] [place] [address] Dr. Tisha Carr Epithelial cells LM Ql (Urine sed) MODERATE Abnormal NONE SEEN /RARE [facility] Comment on above: Performed By: #### E RUR, UMICRO, PREGU #### [facility] [address] [place] [address] Dr. Tisha Carr MUCOUS MODERATE Abnormal NONE SEEN [facility] Comment on above: Performed By: #### E RUR, UMICRO, PREGU #### [facility] [address] [place] [address] Dr. Tisha Carr RBC 0-2 Normal 0-2 [facility] Comment on above: Performed By: #### E RUR, UMICRO, PREGU #### [facility] [address] [place] [address] Dr. Tisha Carr WBC 0-2 Abnormal NONE SEEN [facility] Comment on above: Performed By: #### E RUR, UMICRO, PREGU #### [facility] [address] [place] [address] Dr. Tisha Carr PAP ACOG PANEL 2: 21 to 29on 04-11-2022 . . Normal [facility] Comment on above: Performed By: #### U RCX #### [facility] [address] [place] [address] Dr. Tisha Carr Age Gdln ACOG Testing - Normal [facility] Comment on above: Performed By: #### U RCX #### [facility] [address] [place] [address] Dr. Tisha Carr DIAGNOSIS: Comment Normal [facility] Comment on above: Result Comment: NEGA TIVE FOR INTRAEPITHELIAL LESION OR MALIGNANCY. FUNGAL ORGANISMS MORPHOLOGICALLY CONSISTENT WITH SHEREE SPECIES ARE PRESENT. Performed By: #### U RCX #### [facility] [address] [place] [address] Dr. Tisha Carr Methodology: Comment Normal [facility] Comment on above: Result Comment: This liquid based ThinPrep(R) pap test was screened with the use of an image guided system. Performed By: #### U RCX #### [facility] [address] [place] [address] Dr. Tisha Carr Note: Comment Normal [facility] Comment on above: Result Comment: The Pap smear is a screening test designed to aid in the detection of premalignant and malignant conditions of the uterine cervix. It is not a diagnostic procedure and should not be used as the sole means of detecting cervical cancer. Both false-positive and false-negative reports do occur. . Performed By: #### U RCX #### [facility] [address] [place] [address] Dr. Tisha Carr Performed by: Comment Normal [facility] Comment on above: Result Comment: Caleb Schaeffer, Railroad Car Repair Supervisor (ASCP) Performed By: #### U RCX #### [facility] [address] [place] [address] Dr. Tisha Carr Reflex Criteria: Comment Normal [facility] Comment on above: Result Comment: The HPV DNA reflex criteria were not met with this specimen result therefore, no HPV testing was performed. . Performed By: #### U RCX #### [facility] [address] [place] [address] Dr. Tisha Carr Specimen adequacy: Comment Normal [facility] Comment on above: Result Comment: Sati sfactory for evaluation. Endocervical and/or squamous metaplastic cells (endocervical component) are present. Performed By: #### U RCX #### [facility] [address] [place] [address] Dr. Tisha Carr CULTURE URINEon 01-08-2022 CULTURE [...] Trimethoprim/Sulfamethox azole <=20 S F Normal [facility] Comment on above: Performed By: #### U RCX #### [facility] [address] [place] [address] Dr. Tisha Carr Covid-19 PCR (CVDTB)on 12-23 SARS-CoV-2 (COVID-19) RNA OC+probe Ql (Unsp spec) Not detected Normal NOT DETECTED [facility] Comment on above: Result Comment: This test is not yet approved or cleared by the [place] FDA. When there are no FDA-approved or cleared tests available, and other criteria are met, FDA can make tests available under an emergency access mechanism called an Emergency Use Authorization (EUA). The EUA for this test is supported by the [place] of Health and Human Service's (HHS's) declaration [...] SARS-CoV-2. Performed By: #### C VDTBH #### [facility] [address] [place] [address] Dr. Tisha Carr ER URINE PROFILEon 2 Bilirubin Ql (U) MODERATE Abnormal NEGATIVE [facility] Comment on above: Performed By: #### YULY BRYANT, PREGU #### [facility] [address] [place] [address] Dr. Tisha Carr Clarity (U) CLEAR Normal CLEAR [facility] Comment on above: Performed By: #### YULY BRYANT, PREGU #### [facility] [address] [address] [address] Tisha Carr Color (U) DK. YELLOW Normal YELLOW [facility] Comment on above: Performed By: #### YULY BRYANT, PREGU #### [facility] [address] [place] [address] Dr. Tisha QUEZADA A micrscopic examina tion will be performed if indicated. Normal [facility] Comment on above: Performed By: #### YULY BRYANT, PREGU #### [facility] [address] [place] [address] Dr. Tisha Carr Glucose Ql (U) Negative Normal NEGATIVE [facility] Comment on above: Performed By: #### YULY BRYANT, PREGU #### [facility] [address] [place] [address] Dr. Tisha Carr Hemoglobin Ql (U) Negative Normal NEGATIVE [facility] Comment on above: Performed By: #### YULY BRYANT, PREGU #### [facility] [address] [place] [address] Dr. Tisha Carr Ketones Ql (U) >=80 Abnormal NEGATIVE [facility] Comment on above: Performed By: #### LEIGH BRYANTICELLE, PREGU #### [facility] [address] [place] [address] Dr. Tisha Carr LEUKOCYTES TRACE Abnormal NEGATIVE [facility] Comment on above: Performed By: #### Sofi MEEKRYULY, PREGU #### [facility] [address] [place] [address] Dr. Tisha Carr Nitrite Ql (U) Negative Normal NEGATIVE [facility] Comment on above: Performed By: #### YULY BRYANT PREGU #### [facility] [address] [place] [address] Dr. Tisha Carr pH (U) 6.0 [pH] Normal 5-9 [facility] Comment on above: Performed By: #### YULY BRYANT PREGU #### [facility] [address] [place] [address] Dr. Tisha Carr Protein (U) [Mass/Vol] 100 mg/dL Abnormal NEGATIVE/ TRACE [facility] Comment on above: Performed By: #### YULY BRYANT PREGU #### [facility] [address] [place] [address] Dr. Tisha Carr SPEC GRAVITY 1.025 Normal 1.005-<=1.025 [facility] Comment on above: Performed By: #### YULY BRYANT PREGU #### [facility] [address] [place] [address] Dr. Tisha Carr UR MICRO IND INDICATED Normal [facility] Comment on above: Performed By: #### YULY BRYANT PREGU #### [facility] [address] [place] [address] Dr. Tisha Carr Urobilinogen Qn (U) 1.0 {Alma'U}/dL Normal 0.2 - 1.0 [facility] Comment on above: Performed By: #### YULY BRYANT PREGU #### [facility] [address] [place] [address] Dr. Tisha Carr INFLUENZA A AND B [facility] Normal [facility] Comment on above: Result Comment: Nega tive for Flu A protein angiten. Infection due to Flu A cannot be ruled out. Flu A angiten in the sample may be below the detection limit of the test. Performed By: #### U RCX #### [facility] [address] [place] [address] Dr. Tisha Carr INFLUBNEGH SEE BELOW Normal [facility] Comment on above: Result Comment: Nega tive for Flu B protein antigen. Infection due to Flu B cannot be ruled out. Flu B antigen in the sample may be below the detection limit of the test. Performed By: #### U RCX #### [facility] [address] [place] [address] Dr. Tisha Carr INFLUENZA A AG Negative Normal NEGATIVE SEE COMMENT [facility] Comment on above: Performed By: #### U RCX #### [facility] [address] [place] [address] Dr. Tisha Carr INFLUENZA B AG Negative Normal NEGATIVE SEE COMMENT [facility] Comment on above: Performed By: #### U RCX #### [facility] [address] [place] [address] Dr. Tisha Carr INTERNAL CONTROLS Within Normal Limits Normal Wi thin Normal Limits [facility] Comment on above: Performed By: #### U RCX #### [facility] [address] [place] [address] Dr. Tisha Carr URon 01-06-2022 , QUAL Negative Normal NEGATIVE [facility] Comment on above: Performed By: #### E RUR, UMICRO, PREGU #### [facility] [address] [place] [address] Dr. Tisha Carr URINE MICROSCOPIC ONLYon BACTERIA SMALL Abnormal NONE SEEN [facility] Comment on above: Performed By: #### U RCX #### [facility] [address] [place] [address] Dr. Tisha Carr Bacteria identified Cx Nom (U) INDICATED Normal [facility] Comment on above: Performed By: #### U RCX #### [facility] [address] [place] [address] Dr. Tisha Carr CAST NONE SEEN Normal NONE SEEN [facility] Comment on above: Performed By: #### U RCX #### [facility] [address] [place] [address] Dr. Tisha Carr Crystals LM Nom (Urine sed) NONE SEEN Normal NONE SEEN [facility] Comment on above: Performed By: #### U RCX #### [facility] [address] [address] [address] Tisha Carr Epithelial cells LM Ql (Urine sed) MANY Abnormal NONE SEEN /RARE [facility] Comment on above: Performed By: #### U RCX #### [facility] [address] [address] [address] Tisha Carr MUCOUS LARGE Abnormal NONE SEEN [facility] Comment on above: Performed By: #### U RCX #### [facility] [address] [address] [address] Tisha Carr RBC NONE SEEN Abnormal 0-2 [facility] Comment on above: Performed By: #### U RCX #### [facility] [address] [place] [address] Dr. Tisha Carr WBC 5-10 Abnormal NONE SEEN [facility] Comment on above: Performed By: #### U RCX #### [facility] [address] [address] [address] Tisha Carr Vital Signs Date Time Vital Sign Value Performing Clinician Faci lity 09-22-2023 16:01-0500 Body weight 89.09 kg Belkis Jessica DO Work Phone: [facility] 09-22-2023 16:01-0500 Diastolic blood pressure 70 mm[Hg] Belkis Jessica DO Work Phone: [facility] 09-22-2023 16:01-0500 Systolic blood pressure 120 mm[Hg] Belkis Jessica DO Work Phone: [facility] Encounters Encounter Date Encounter Type [...] PM EST Routine [facility] [address] [id number] JessicaBelkis, DO [address] [place] [address] [facility] Start: 09-22-2023 End: 09-22-2024 Alpha fetoprotein, maternal Alpha fetoprotein, maternal Lab Routine Second trimester Need for maternal serum alpha-protein (MSAFP) screening Expected: 09/22/2023 (Approximate), Expires: 09/22/2024 [facility] Comment on above: Expected: 09/22/2023 (Approximate), Expires: 09/22/2024 Start: 09-22-2023 End: 09-22-2024 US for US OB ANATOMY SINGLE W US OB CERVICAL LENGTH Imaging Routine Screening, , for anatomic survey Expected: 09/22/2023 (Approximate), Expires: 09/22/2024 [facility] Comment on above: Expected: 09/22/2023 (Approximate), Expires: 09/22/2024 CHLAMYDIA TRACHOMATI S (GENITO/STI) CHLAMYDIA TRACHOMATIS (GENITO/STI) Lab Routine Exposure to STD Ordered: 09/22/2023 [facility] Comment on above: Ordered: 09/22/2023 Cytology Cervical or vaginal smear or scraping study Pap Smear Pathology and Cytology Routine Well woman exam with routine gynecological exam Ordered: 09/22/2023 [facility] Comment on above: Ordered: 09/22/2023 Neisseria gonorrhoea e DNA [Presence] in Unspecified specimen by OC with probe detection Neisseria gonorrhea DNA probe, direct Lab Routine Exposure to STD Ordered: 09/22/2023 [facility] Comment on above: Ordered: 09/22/2023 SURESWAB(R) ADVANCED VAGINITIS PLUS, TMA SURESWAB(R) ADVANCED VAGINITIS PLUS, TMA Pathology and Cytology Routine Exposure to STD Ordered: 09/22/2023 [facility] Work Phone: Comment on above: Ordered: 09/22/2023 Payers Date Payer Category Payer Medicaid [facility] MEDICAID [place] [id number] 2021-Present [address] [place] [address] [id number] 2000 Unknown [id number] [id number] 2000 Unknown [id number] 2.16.840.1.129092.3.579.2.593 2000 Unknown [id number] 2.16.840.1.671354.3.579.2.593 2000 Unknown [id number] 2.16.840.1.490067.3.579.2.593 2000 Unknown [id number] 2.16.840.1.991414.3.579.2.1259 2000 Unknown [id number] 2.16.840.1.643478.3.579.2.9 2000 Unknown [id number] 2.16.840.1.526604.3.579.2.1259 2000 Unknown [id number] 2.16.840.1.265503.3.579.2.1259 2000 Unknown [id number] 2.16.840.1.920799.3.579.2.1259 2000 Unknown [id number] 2.16.840.1.369412.3.579.2.1259 2000 Unknown [id number] 2.16.840.1.558560.3.579.2.9 2000 Unknown [id number] 2.16.840.1.346071.3.579.2.9 2000 Unknown [id number] 2.16.840.1.806644.3.579.2.125 2000 Unknown [id number] 2.16.840.1.599186.3.579.2.1259 1959 Unknown [id number] Social History Date Type Detail [facility] Start: 05-22-2023 [facility] Start: 2000 Sex Assigned At Female [facility] Start: 07-03-2023 Gender identity Identifies as female gender (finding) [facility] Sexual orientation Not on file [facility] History of Present illness Narrative 09-22-2023 Nora Riggs, OPS MANAGER - 09/22/2023 3:20 PM EST Note Date [...] Problems Past Medical History: Diagnosis Date Asthma ([facility]) No family history on file. Social [...] nursing note reviewed. Exam conducted with a programmer developer present. Vitals: There is no height or [...] DATE CREATED AUTHOR 11/07/2022 [facility] DATE CREATED AUTHOR 'S ORGANIZ ATION 01/14/2024 [facility] EPIC Reason for Visit [...] BE BASED ON THE PRIMARY CLINICAL RECORDS. [employer] provides no warranty or guarantee of the accuracy or completeness of information in this document.
== END 2024-01-27 21:05 | disposition home or self-care (01) ==
LOC: LAB 21:04
PROVIDERS: PCP Nurse Practitioner Family; Visit Provider Obstetrics & Gynecology
DX: Z34.93 Encounter for supervision of normal pregnancy, unspecified, third trimester (principal)
CPT/HCPCS: 87081

== ENCOUNTER 2024-01-28 06:58 | Outpatient (OUT) | payer OTHER, SELFPAY ==
--- OUTSIDE RECORDS SUMMARY | 2024-01-28 07:01 | XMS_ITS | CCD ---
Author Organization [facility] Inform ion Partnership [facility] Care Team Providers Care Research Biostatistician Name Role Phone JOSE ., LITA Admitting [...] (1 source) Ibuprofen Drug Allergy 01-15-2016 [facility] Repository (2 sources) Ibuprofen Drug Allergy 07-10-2023 Unknown [facility] Healthcare Work Phone: Medications Current [...] GDLNon AGE GDLN ACOG TESTING Note . [facility] Healthcare Comment on above: TESTS RESULT FLAG U NITS REF RANGE LAB Clinician Provided Cytology Information Source.............Cervix Other.............. No. of containers..01 ThinPrep Vial Age Algo ACOG Bina... 21- 01 FLAG LEGEND: L-Low Normal,H-High Normal,LL-Alert Low,HH-Alert High <-Panic Low,>-Panic High,A-Abnormal,AA-Critical Abnormal Performed at: 01 =G [facility] [address] [place] [address] Lali Holloway MD, IGP, RFX APTIMA HPV ASCU Note . [facility] Comment on above: TESTS RESULT FLAG UN ITS REF RANGE LAB DIAGNOSIS: 02 NEGATIVE FOR INTRAEPITHELIAL LESION OR MALIGNANCY. Specimen adequacy: 02 Satisfactory for evaluation. No endocervical component is identified. An endocervical component is not commonly seen in the patient. Performed by: 02 Kieran Pickering, Accounting File Clerk ([facility]) . 02 Note: Note 02 [...] <-Panic Low,>-Panic High,A-Abnormal,AA-Critical Abnormal Performed at: [address] [id number] Lali Holloway MD, Performed at: =G - [facility] [address] [id number] Process Automation Engineer: Lali Holloway MD, Phone: [phone] Performed at: [facility], [place] [id number] Process Automation Engineer: Lali Holloway MD, Phone: [phone] [facility] Urinalysis macro (dipstick) panel (U)on 09-22-2023 Bilirubin, UA Negative Negative - 4(70) +++ mg/dL [facility] Blood, UA Negative Negative - 50 Flash/mcL [facility] Clarity, UA Clear [facility] Color, UA Yellow [facility] Glucose, UA Negative Negative - 1999(110) ++++ mg/dL [facility] Interpretation and review of laboratory results Abnormal [facility] Ketones, UA Positive Negative - 160(16) ++++ mg/dL [facility] Leukocytes, UA Negative Negative - 500+++ Taylor/mcL [facility] Nitrite, UA Negative Negative - Positive [facility] pH, UA 5.5 5 - 9 [facility] Protein, UA Negative Negative - 1999(20) ++++ mg/dL [facility] Spec Grav, UA 1.020 1 - 1.03 [facility] Urobilinogen, UA 0.2 0.2 - 12 mg/dL [facility] COMPLIANCE DRUG SCREENon PDF . Normal [facility] Comment on above: Performed By: #### U RCX #### [facility] [address] [place] [address] Dr. Tisha Carr Summary FINAL Normal [facility] Comment on above: Result Comment: = [...] test is not intended to distinguish between fzsel-0-wynsbvuptspzuslfoigp, the predominant form of THC in most herbal or marijuana-based products, and bstlr-4-bvlyzaqwqwrfppukduwj. Methylphenidate PRESENT UNEXPECTED Ritalinic Acid PRESENT UNEXPECTED [...] = Performed By: #### U RCX #### [facility] [address] [place] [address] Dr. Tisha Carr URIC ACID RAND URINEon 10-31 Uric Acid, Urine 67.3 mg/dL Normal Not Estab. [facility] Comment on above: Performed By: #### U RCX #### [facility] [address] [place] [address] Dr. Tisha Carr DRUG SCREEN RAPID (URINE)on 10-30-2022 AMP Negative Normal NEGATIVE [facility] Comment on above: Performed By: #### U RCX #### [facility] [address] [place] [address] Dr. Tisha Carr BAR Negative Normal NEGATIVE [facility] Comment on above: Performed By: #### U RCX #### [facility] [address] [place] [address] Dr. Tisha Carr BUP Negative Normal NEGATIVE [facility] Comment on above: Performed By: #### U RCX #### [facility] [address] [place] [address] Dr. Tisha Carr BZO Negative Normal NEGATIVE [facility] Comment on above: Performed By: #### U RCX #### [facility] [address] [place] [address] Dr. Tisha Carr SOCRATES Negative Normal NEGATIVE [facility] Comment on above: Performed By: #### U RCX #### [facility] [address] [place] [address] Dr. Tisha Carr CUT-OFFS SEE BELOW Normal [facility] Comment on above: Result Comment: AMP [...] ng/mL Performed By: #### U RCX #### [facility] [address] [place] [address] Dr. Tisha Carr DRUG CUT HEADER DRUG CLASS TEST SYST EM CUT-OFF CONCENTRATIONS ARE FOLLOWS: Normal [facility] Comment on above: Performed By: #### U RCX #### [facility] [address] [place] [address] Dr. Tisha Carr mAMP Negative Normal NEGATIVE [facility] Comment on above: Performed By: #### U RCX #### [facility] [address] [place] [address] Dr. Tisha Carr MTD Negative Normal NEGATIVE [facility] Comment on above: Performed By: #### U RCX #### [facility] [address] [place] [address] Dr. Tisha Carr OPI Negative Normal NEGATIVE [facility] Comment on above: Performed By: #### U RCX #### [facility] [address] [place] [address] Dr. Tisha Carr OXY Negative Normal NEGATIVE [facility] Comment on above: Performed By: #### U RCX #### [facility] [address] [place] [address] Dr. Tisha Carr PCP Negative Normal NEGATIVE [facility] Comment on above: Performed By: #### U RCX #### [facility] [address] [place] [address] Dr. Tisha Carr PPX Negative Normal NEGATIVE [facility] Comment on above: Performed By: #### U RCX #### [facility] [address] [place] [address] Dr. Tisha Carr TCA Negative Normal NEGATIVE [facility] Comment on above: Performed By: #### U RCX #### [facility] [address] [place] [address] Dr. Tisha Carr THC Positive Abnormal NEGATIVE [facility] Comment on above: Performed By: #### U RCX #### [facility] [address] [address] [address] Tisha Carr CBC AUTO DIFFon 06-21-2022 BASO # 0.0 103/ul Normal 0.0-0.1 [facility] Comment on above: Performed By: #### U RCX #### [facility] [address] [place] [address] Dr. Tisha Carr Basophils/100 WBC (Bld) 0.2 % Normal 0.2-2.0 [facility] Comment on above: Performed By: #### U RCX #### [facility] [address] [place] [address] Dr. Tisha Carr EO # 0.0 103/ul Normal 0.0-0.7 [facility] Comment on above: Performed By: #### U RCX #### [facility] [address] [place] [address] Dr. Tisha Carr Eosinophils/100 WBC (Bld) 0.2 % Critically low 0.9-7.0 [facility] Comment on above: Performed By: #### U RCX #### [facility] [address] [place] [address] Dr. Tisha Carr Erythrocyte distribution width (RBC) [Ratio] 12.3 % Normal 11.0-15.0 [facility] Comment on above: Performed By: #### U RCX #### [facility] [address] [place] [address] Dr. Tisha Carr Hematocrit (Bld) [Volume fraction] 43.1 % Normal 36.0-48.0 [facility] Comment on above: Performed By: #### U RCX #### [facility] [address] [place] [address] Dr. Tisha Carr Hemoglobin (Bld) [Mass/Vol] 15.1 g/dL Normal 12.0-16.0 [facility] Comment on above: Performed By: #### U RCX #### [facility] [address] [place] [address] Dr. Tisha Carr IG # 0.06 10e3/ul Critically high 0.00-0.03 [facility] Comment on above: Performed By: #### U RCX #### [facility] [address] [address] [address] Tisha Carr IG % 0.5 % Normal 0.0-0.5 [facility] Comment on above: Performed By: #### U RCX #### [facility] [address] [address] [address] Tisha Carr LYMPH # 1.0 103/ul Critically low 1.2-3.8 [facility] Comment on above: Performed By: #### U RCX #### [facility] [address] [address] [address] Tisha Carr Lymphocytes/100 WBC (Bld) 8.2 % Critically low 20.5-60.0 [facility] Comment on above: Performed By: #### U RCX #### [facility] [address] [place] [address] Dr. Tisha Carr MANUAL DIFF REQ NO Normal [facility] Comment on above: Performed By: #### U RCX #### [facility] [address] [place] [address] Dr. Tisha Carr MCH (RBC) [Entitic mass] 30.3 pg Normal 26.7-34.0 [facility] Comment on above: Performed By: #### U RCX #### [facility] [address] [place] [address] Dr. Tisha Carr MCHC (RBC) [Mass/Vol] 35.0 g/dL Normal 29.9-35.2 [facility] Comment on above: Performed By: #### U RCX #### [facility] [address] [address] [address] Tisha Carr MCV (RBC) [Entitic vol] 86.4 fL Normal 81.0-99.0 [facility] Comment on above: Performed By: #### U RCX #### [facility] [address] [address] [address] Tisha Carr MONO # 0.8 103/ul Normal 0.3-0.8 [facility] Comment on above: Performed By: #### U RCX #### [facility] [address] [address] [address] Tisha Carr Monocytes/100 WBC (Bld) 6.0 % Normal 1.7-12.0 [facility] Comment on above: Performed By: #### U RCX #### [facility] [address] [address] [address] Tisha Carr NEUT # 10.8 103/ul Critically high 1.4-6.5 [facility] Comment on above: Performed By: #### U RCX #### [facility] [address] [address] [address] Tisha Carr Neutrophils/100 WBC (Bld) 84.9 % Critically high 43.0-75.0 [facility] Comment on above: Performed By: #### U RCX #### [facility] [address] [place] [address] Dr. Tisha Carr Platelet mean volume (Bld) [Entitic vol] 10.8 fL Normal 9.5-13.5 [facility] Comment on above: Performed By: #### U RCX #### [facility] [address] [address] [address] Tisha Carr PLT 237 103/ul Normal 150-450 [facility] Comment on above: Performed By: #### U RCX #### [facility] [address] [address] [address] Tisha Carr RBC 4.99 106/ul Normal 4.20-5.40 [facility] Comment on above: Performed By: #### U RCX #### [facility] [address] [address] [address] Tisha Carr WBC 12.7 103/ul Critically high 4.0-11.0 [facility] Comment on above: Performed By: #### U RCX #### [facility] [address] [place] [address] Dr. Tisha Carr CRPon 06-21-2022 CRP 10.0 mg/dL Critically high <=1.0 [facility] Comment on above: Performed By: #### C RP, CMP, LIPA #### [facility] [address] [address] [address] Tisha Carr ER URINE PROFILEon 2 Bilirubin Ql (U) SMALL Abnormal NEGATIVE [facility] Comment on above: Performed By: #### E LEIGH CUMMINSICRO, PREGU #### [facility] [address] [address] [address] Tisha Crar Clarity (U) CLEAR Normal CLEAR [facility] Comment on above: Performed By: #### E LEIGH CUMMINSICRO, PREGU #### [facility] [address] [address] [address] Tisha Carr Color (U) YELLOW Normal YELLOW [facility] Comment on above: Performed By: #### YULY BRYANT, PREGU #### [facility] [address] [address] [address] Tisha QUEZADA A micrscopic examina tion will be performed if indicated. Normal [facility] Comment on above: Performed By: #### NHAN BRYANTRO, PREGU #### [facility] [address] [address] [address] Tisha Carr Glucose Ql (U) Negative Normal NEGATIVE [facility] Comment on above: Performed By: #### YULY BRYANT, PREGU #### [facility] [address] [address] [address] Tisha Carr Hemoglobin Ql (U) MODERATE Abnormal NEGATIVE [facility] Comment on above: Performed By: #### YULY BRYANT, PREGU #### [facility] [address] [address] [address] Tisha Carr Ketones Ql (U) 80 mg/dl Abnormal NEGATIVE [facility] Comment on above: Performed By: #### YULY BRYANT, PREGU #### [facility] [address] [address] [address] Tisha Carr LEUKOCYTES Negative Normal NEGATIVE [facility] Comment on above: Performed By: #### YULY BRYANT, PREGU #### [facility] [address] [address] [address] Tisha Carr Nitrite Ql (U) Negative Normal NEGATIVE [facility] Comment on above: Performed By: #### YULY BRYANT PREGU #### [facility] [address] [address] [address] Tisha Carr pH (U) 6.0 [pH] Normal 5-9 [facility] Comment on above: Performed By: #### YULY BRYANT PREGU #### [facility] [address] [place] [address] Dr. Tisha Carr SPEC GRAVITY 1.025 Normal 1.005-<=1.025 [facility] Comment on above: Performed By: #### YULY BRYANT PREGU #### [facility] [address] [place] [address] Dr. Tisha Carr UA PROTEIN TRACE Normal NEGATIVE/ TRACE [facility] Comment on above: Performed By: #### YULY BRYANT PREGU #### [facility] [address] [place] [address] Dr. Tisha Carr UR MICRO IND INDICATED Normal [facility] Comment on above: Performed By: #### YULY BRYANT PREGU #### [facility] [address] [place] [address] Dr. Tisha Carr Urobilinogen Qn (U) 1.0 {Alma'U}/dL Normal 0.2 - 1.0 [facility] Comment on above: Performed By: #### YULY BRYANT PREGU #### [facility] [address] [place] [address] Dr. Tisha Carr LACTATE/LACTIC ACIDon 2021 Lactate [Moles/Vol] 1.0 mmol/L Normal 0.4-1.9 [facility] Comment on above: Performed By: #### U RCX #### [facility] [address] [place] [address] Dr. Tisha Carr LIPASEon 06-21-2022 Lipase [Catalytic activity/Vol] 41.0 U/L Critically low 73.0-393.0 [facility] Comment on above: Performed By: #### C RP, CMP, LIPA #### [facility] [address] [address] [address] Tisha Carr URon 06-21-2022 , QUAL Negative Normal NEGATIVE [facility] Comment on above: Performed By: #### E RUR, UMICRO, PREGU #### [facility] [address] [address] [address] Tisha Carr PROF 14(COMP METB)on 022 Albumin [Mass/Vol] 4.0 g/dL Normal 3.4-5.0 [facility] Comment on above: Performed By: #### C RP, CMP, LIPA #### [facility] [address] [place] [address] Dr. Tisha Carr Albumin/Globulin [Mass ratio] 1.0 {ratio} Normal [facility] Comment on above: Performed By: #### C RP, CMP, LIPA #### [facility] [address] [address] [address] Tisha Carr ALP [Catalytic activity/Vol] 74 U/L Normal 46-116 [facility] Comment on above: Performed By: #### C RP, CMP, LIPA #### [facility] [address] [place] [address] Dr. Tisha Carr ALT [Catalytic activity/Vol] 33 U/L Normal 14-59 [facility] Comment on above: Performed By: #### C RP, CMP, LIPA #### [facility] [address] [address] [address] Tisha Carr Anion gap [Moles/Vol] 15.8 mmol/L Normal [facility] Comment on above: Performed By: #### C RP, CMP, LIPA #### [facility] [address] [place] [address] Dr. Tisha Carr AST [Catalytic activity/Vol] 17 U/L Normal 15-37 [facility] Comment on above: Performed By: #### C RP, CMP, LIPA #### [facility] [address] [address] [address] Tisha Carr Bilirubin [Mass/Vol] 1.3 mg/dL Critically high 0.2-1.0 [facility] Comment on above: Performed By: #### C RP, CMP, LIPA #### [facility] [address] [address] [address] Tisha Carr Calcium [Mass/Vol] 9.2 mg/dL Normal 8.5-10.1 [facility] Comment on above: Performed By: #### C RP, CMP, LIPA #### [facility] [address] [address] [address] Tisha Carr Chloride [Moles/Vol] 102 mmol/L Normal 98-107 [facility] Comment on above: Performed By: #### C RP, CMP, LIPA #### [facility] [address] [place] [address] Dr. Tisha Carr CO2 [Moles/Vol] 22.7 mmol/L Normal 21.0-32.0 [facility] Comment on above: Performed By: #### C RP, CMP, LIPA #### [facility] [address] [place] [address] Dr. Tisha Carr Creatinine [Mass/Vol] 0.70 mg/dL Normal 0.55-1.02 [facility] Comment on above: Performed By: #### C RP, CMP, LIPA #### [facility] [address] [place] [address] Dr. Tisha Carr EGFR-AF NIUEAN >60 Normal >=60 [facility] Comment on above: Performed By: #### C RP, CMP, LIPA #### [facility] [address] [place] [address] Dr. Tisha Carr EGFR-NON AF NIUEAN >60 Normal >=60 [facility] Comment on above: Performed By: #### C RP, CMP, LIPA #### [facility] [address] [place] [address] Dr. Tisha Carr Globulin (S) [Mass/Vol] 4.2 g/dL Normal [facility] Comment on above: Performed By: #### C RP, CMP, LIPA #### [facility] [address] [address] [address] Tisha Carr Glucose [Mass/Vol] 93 mg/dL Normal 74-106 [facility] Comment on above: Performed By: #### C RP, CMP, LIPA #### [facility] [address] [place] [address] Dr. Tisha Carr Potassium [Moles/Vol] 3.5 mmol/L Normal 3.5-5.1 [facility] Comment on above: Performed By: #### C RP, CMP, LIPA #### [facility] [address] [place] [address] Dr. Tisha Carr Protein [Mass/Vol] 8.2 g/dL Normal 6.4-8.2 [facility] Comment on above: Performed By: #### C RP, CMP, LIPA #### [facility] [address] [place] [address] Dr. Tisha Carr Sodium [Moles/Vol] 137 mmol/L Normal 136-145 [facility] Comment on above: Performed By: #### C RP, CMP, LIPA #### [facility] [address] [place] [address] Dr. Tisha Carr Urea nitrogen [Mass/Vol] 16.0 mg/dL Normal 7.0-18.0 [facility] Comment on above: Performed By: #### C RP, CMP, LIPA #### [facility] [address] [place] [address] Dr. Tisha Carr Urea nitrogen/Creatinin e [Mass ratio] 22.9 mg/mg Normal [facility] Comment on above: Performed By: #### C RP, CMP, LIPA #### [facility] [address] [place] [address] Dr. Tisha Carr URINE MICROSCOPIC ONLYon BACTERIA TRACE Abnormal NONE SEEN [facility] Comment on above: Performed By: #### E RUR, NHANRO, PREGU #### [facility] [address] [place] [address] Dr. Tisha Carr Bacteria identified Cx Nom (U) NOT INDICATED Normal [facility] Comment on above: Performed By: #### E YULY CUMMINS, PREGU #### [facility] [address] [place] [address] Dr. Tisha Carr CAST NONE SEEN Normal NONE SEEN [facility] Comment on above: Performed By: #### E RURYULY, PREGU #### [facility] [address] [place] [address] Dr. Tisha Carr Crystals LM Nom (Urine sed) NONE SEEN Normal NONE SEEN [facility] Comment on above: Performed By: #### E RUYULY Leone, PREGU #### [facility] [address] [place] [address] Dr. Tisha Carr Epithelial cells LM Ql (Urine sed) MODERATE Abnormal NONE SEEN /RARE [facility] Comment on above: Performed By: #### LEIGH BRYANTICELLE, PREGU #### [facility] [address] [place] [address] Dr. Tisha Carr MUCOUS MODERATE Abnormal NONE SEEN [facility] Comment on above: Performed By: #### YULY BRYANT, PREGU #### [facility] [address] [place] [address] Dr. Tisha Carr RBC 0-2 Normal 0-2 [facility] Comment on above: Performed By: #### YULY BRYANT, PREGU #### [facility] [address] [place] [address] Dr. Tisha Carr WBC 0-2 Abnormal NONE SEEN [facility] Comment on above: Performed By: #### E YULY CUMMINS, PREGU #### [facility] [address] [place] [address] Dr. Tisha Carr PAP ACOG PANEL 2: 21 to 29on 04-11-2022 . . Normal [facility] Comment on above: Performed By: #### U RCX #### [facility] [address] [place] [address] Dr. Tisha Carr Age Gdln ACOG Testing 21-29 Normal [facility] Comment on above: Performed By: #### U RCX #### [facility] [address] [place] [address] Dr. Tisha Carr DIAGNOSIS: Comment [facility] Comment on above: Result Comment: NEGA TIVE FOR INTRAEPITHELIAL LESION OR MALIGNANCY. FUNGAL ORGANISMS MORPHOLOGICALLY CONSISTENT WITH SHEREE SPECIES ARE PRESENT. Performed By: #### U RCX #### [facility] [address] [place] [address] Dr. Tisha Carr Methodology: Comment Normal [facility] Comment on above: Result Comment: This liquid based ThinPrep(R) pap test was screened with the use of an image guided system. Performed By: #### U RCX #### [facility] [address] [place] [address] Dr. Tisha Carr Note: Comment [facility] Comment on [...] . Performed By: #### U RCX #### [facility] [address] [place] [address] Dr. Tisha Carr Performed by: Comment Normal [facility] Comment on above: Result Comment: Caleb Schaeffer, Accounting File Clerk ([employer]) Performed By: #### U RCX #### [facility] [address] [place] [address] Dr. Tisha Carr Reflex Criteria: Comment Normal [facility] Comment on above: Result Comment: The HPV DNA reflex criteria were not met with this specimen result therefore, no HPV testing was performed. . Performed By: #### U RCX #### [facility] [address] [place] [address] Dr. Tisha Carr Specimen adequacy: Comment [facility] Comment on above: Result Comment: Sati sfactory for evaluation. Endocervical and/or squamous metaplastic cells (endocervical component) are present. Performed By: #### U RCX #### [facility] [address] [place] [id number] Tisha Carr CULTURE URINEon 01-08-2022 CULTURE [...] Trimethoprim/Sulfamethox azole <=20 S F Normal [facility] Comment on above: Performed By: #### U RCX #### [facility] [address] [place] [address] Dr. Tisha Carr Covid-19 PCR (CVDTB)on 12-23 SARS-CoV-2 (COVID-19) RNA OC+probe Ql (Unsp spec) Not detected Normal NOT DETECTED [facility] Comment on above: Result Comment: This test is not yet approved or cleared by the [place] FDA. When there are no FDA-approved or cleared tests available, and other criteria are met, FDA can make tests available under an emergency access mechanism called an Emergency Use Authorization (EUA). The EUA for this test is supported by the [employer] of Health and Human Service's (HHS's) declaration [...] SARS-CoV-2. Performed By: #### C VDTBH #### [facility] [address] [address] [address] Tisha Carr ER URINE PROFILEon 2 Bilirubin Ql (U) MODERATE Abnormal NEGATIVE [facility] Comment on above: Performed By: #### E YULY CUMMINS, PREGU #### [facility] [address] [address] [address] Tisha Carr Clarity (U) CLEAR Normal CLEAR [facility] Comment on above: Performed By: #### YULY BRYANT, PREGU #### [facility] [address] [address] [address] Tisha Carr Color (U) DK. YELLOW Normal YELLOW [facility] Comment on above: Performed By: #### YULY BRYANT, PREGU #### [facility] [address] [address] [address] Tisha CONTIAHIsidra A micrscopic examina tion will be performed if indicated. Normal [facility] Comment on above: Performed By: #### NHAN BRYANTRO, PREGU #### [facility] [address] [address] [address] Tisha Carr Glucose Ql (U) Negative Normal NEGATIVE [facility] Comment on above: Performed By: #### YULY BRYANT, PREGU #### [facility] [address] [address] [address] Tisha Carr Hemoglobin Ql (U) Negative Normal NEGATIVE The [facility] Comment on above: Performed By: #### NHAN BRYANTRO, PREGU #### [facility] [address] [address] [address] Tisha Carr Ketones Ql (U) >=80 Abnormal NEGATIVE [facility] Comment on above: Performed By: #### NHAN BRYANTRO, PREGU #### [facility] [address] [address] [address] Tisha Carr LEUKOCYTES TRACE Abnormal NEGATIVE [facility] Comment on above: Performed By: #### YULY BRYANT, PREGU #### [facility] [address] [address] [address] Tisha Carr Nitrite Ql (U) Negative Normal NEGATIVE [facility] Comment on above: Performed By: #### YULY BRYANT PREGU #### [facility] [address] [address] [address] Tisha Carr pH (U) 6.0 [pH] Normal 5-9 [facility] Comment on above: Performed By: #### YULY BRYANT PREGU #### [facility] [address] [address] [address] Tisha Carr Protein (U) [Mass/Vol] 100 mg/dL Abnormal NEGATIVE/ TRACE [facility] Comment on above: Performed By: #### YULY BRYANT PREGU #### [facility] [address] [place] [address] Dr. Tisha Carr SPEC GRAVITY 1.025 Normal 1.005-<=1.[address] [facility] Comment on above: Performed By: #### YULY BRYANT PREGU #### [facility] [address] [address] [address] Tisha Carr UR MICRO IND INDICATED Normal [facility] Comment on above: Performed By: #### YULY BRYANT PREGU #### [facility] [address] [place] [address] Dr. Tisha Carr Urobilinogen Qn (U) 1.0 {Alma'U}/dL Normal 0.2 - 1.0 [facility] Comment on above: Performed By: #### YULY BRYANT PREGU #### [facility] [address] [place] [address] Dr. Tisha Carr INFLUENZA A AND B AGon 01-06 INFLUANEGH SEE BELOW Normal [facility] Comment on above: Result Comment: Nega tive for Flu A protein angiten. Infection due to Flu A cannot be ruled out. Flu A angiten in the sample may be below the detection limit of the test. Performed By: #### U RCX #### [facility] [address] [place] [address] Dr. Tisha Carr INFLUBNEGH SEE BELOW Normal [facility] Comment on above: Result Comment: Nega tive for Flu B protein antigen. Infection due to Flu B cannot be ruled out. Flu B antigen in the sample may be below the detection limit of the test. Performed By: #### U RCX #### [facility] [address] [place] [address] Dr. Tisha Carr INFLUENZA A AG Negative Normal NEGATIVE SEE COMMENT [facility] Comment on above: Performed By: #### U RCX #### [facility] [address] [place] [address] Dr. Tisha Carr INFLUENZA B AG Negative Normal NEGATIVE SEE COMMENT [facility] Comment on above: Performed By: #### U RCX #### [facility] [address] [place] [address] Dr. Tisha Carr INTERNAL CONTROLS Within Normal Limits Normal Wi thin Normal Limits [facility] Comment on above: Performed By: #### U RCX #### [facility] [address] [place] [address] Dr. Tisha Carr URon 01-06-2022 , QUAL Negative Normal NEGATIVE The [facility] Comment on above: Performed By: #### E RUR UMMONARO, PREGU #### [facility] [address] [place] [address] Dr. Tisha Carr URINE MICROSCOPIC ONLYon BACTERIA SMALL Abnormal NONE SEEN [facility] Comment on above: Performed By: #### U RCX #### [facility] [address] [place] [address] Dr. Tisha Carr Bacteria identified Cx Nom (U) INDICATED Normal [facility] Comment on above: Performed By: #### U RCX #### [facility] [address] [place] [address] Dr. Tisha Carr CAST NONE SEEN Normal NONE SEEN [facility] Comment on above: Performed By: #### U RCX #### [facility] [address] [place] [address] Dr. Tisha Carr Crystals LM Nom (Urine sed) NONE SEEN Normal NONE SEEN [facility] Comment on above: Performed By: #### U RCX #### [facility] [address] [address] [address] Tisha Carr Epithelial cells LM Ql (Urine sed) MANY Abnormal NONE SEEN /RARE [facility] Comment on above: Performed By: #### U RCX #### [facility] [address] [address] [address] Tisha Carr MUCOUS LARGE Abnormal NONE SEEN [facility] Comment on above: Performed By: #### U RCX #### [facility] [address] [address] [address] Tisha Carr RBC NONE SEEN Abnormal 0-2 [facility] Comment on above: Performed By: #### U RCX #### [facility] [address] [address] [address] Tisha Carr WBC 5-10 Abnormal NONE SEEN [facility] Comment on above: Performed By: #### U RCX #### [facility] [address] [address] [address] Tisha Carr Vital Signs Date Time Vital Sign Value Performing Clinician Faci lity 09-22-2023 16:01-0500 Body weight 89.09 kg Belkis Jessica DO Work Phone: [facility] 09-22-2023 16:01-0500 Diastolic blood pressure 70 mm[Hg] Belkis Jessica DO Work Phone: [facility] 09-22-2023 16:01-0500 Systolic blood pressure 120 mm[Hg] Belkis Jessica DO Work Phone: [facility] Encounters Encounter Date Encounter Type Care Provider Facility Start: 01-27-2024 End: 01-27-2024 ambulatory BELKIS JESSICA Not Available Start: 01-12-2024 End: 01-12-2024 ambulatory BELKIS JESSICA Not Available Start: 2024 End: 2024 ambulatory BELKIS JESSICA Not Available Start: 12-22-2023 End: 12-22-2023 ambulatory BELKIS JESSIAC Not Available Start: 12-02-2023 End: 12-02-2023 ambulatory [...] , for anatomic survey; Heartburn Start: 09-22-2023 End: 09-22-2023 ambulatory BELKIS WUO Not Available Start: 09-22-2023 Clinisync Result Encounter [...] dip stick/tabl et rgnt non-auto w/o micrscp Belksi Jessica DO Work Phone: Start: 09-22-2023 IGP,APTIMA HPV,AGE GDLN Belkis Lopez DO Work Phone: Plan of Treatment Date Care Activity Detail Author Start: 10-20-2023 End: 10-20-2023 Patient encounter procedure 10/20/2023 3:10 PM EST Routine [facility] [address] [place] [address] Belkis Lopez, DO [address] [place] [address] [facility] Start: 09-22-2023 End: 09-22-2024 Alpha fetoprotein, maternal Alpha fetoprotein, maternal Lab Routine Second trimester Need for maternal serum alpha-protein (MSAFP) screening Expected: 09/22/2023 (Approximate), Expires: 09/22/2024 [facility] Comment on above: Expected: 09/22/2023 (Approximate), Expires: 09/22/2024 Start: 09-22-2023 End: 09-22-2024 US for US OB ANATOMY SINGLE W US OB CERVICAL LENGTH Imaging Routine Screening, , for anatomic survey Expected: 09/22/2023 (Approximate), Expires: 09/22/2024 [facility] Comment on above: Expected: 09/22/2023 (Approximate), Expires: 09/22/2024 CHLAMYDIA TRACHOMATI S (GENITO/STI) CHLAMYDIA TRACHOMATIS (GENITO/STI) Lab Routine Exposure to STD Ordered: 09/22/2023 [facility] Comment on above: Ordered: 09/22/2023 Cytology Cervical or vaginal smear or scraping study Pap Smear Pathology and Cytology Routine Well woman exam with routine gynecological exam Ordered: 09/22/2023 [facility] Comment on above: Ordered: 09/22/2023 Neisseria gonorrhoea e DNA [Presence] in Unspecified specimen by OC with probe detection Neisseria gonorrhea DNA probe, direct Lab Routine Exposure to STD Ordered: 09/22/2023 [facility] Comment on above: Ordered: 09/22/2023 SURESWAB(R) ADVANCED VAGINITIS PLUS, TMA SURESWAB(R) ADVANCED VAGINITIS PLUS, TMA Pathology and Cytology Routine Exposure to STD Ordered: 09/22/2023 [facility] Work Phone: Comment on above: Ordered: 09/22/2023 Payers Date Payer Category Payer Medicaid [employer] [place] [employer] [id number] 2021-Present [address] [place] [address] [id number] 2000 Unknown [id number] [id number] 2000 Unknown [id number] 2.16.840.1.035694.3.579.2.593 2000 Unknown [id number] 2.16.840.1.671602.3.579.2.593 2000 Unknown [id number] 2.16.840.1.107303.3.579.2.593 2000 Unknown [id number] 2.16.840.1.007506.3.579.2.1259 2000 Unknown [id number] 2.16.840.1.031205.3.579.2.1259 2000 Unknown [id number] 2.16.840.1.143105.3.579.2.9 2000 Unknown [id number] 2.16.840.1.334336.3.579.2.1259 2000 Unknown [id number] 2.16.840.1.304105.3.579.2.1258 2000 Unknown [id number] 2.16.840.1.963544.3.579.2.9 2000 Unknown [id number] 2.16.840.1.730094.3.579.2.1259 2000 Unknown [id number] 2.16.840.1.388369.3.579.2.1259 2000 Unknown [id number] 2.16.840.1.610215.3.579.2.1259 2000 Unknown [id number] 2.16.840.1.029200.3.579.2.1259 2000 Unknown [id number] 2.16.840.1.639543.3.579.2.1259 1959 Unknown [id number] Social History Date Type Detail Facility Tobacco smoking stat [facility] Tobacco smoking consumption unknown [facility] [...] Past Medical History: Diagnosis Date Asthma ([facility]) No family history on file. [...] nursing note reviewed. Exam conducted with a disulfurizer tender present. Vitals: There is no height or [...] content) DATE CREATED AUTHOR 11/07/2022 [facility] DATE CREATED AUTHOR AUTHOR'S ORGANIZ ATION 01/28/2024 [facility] EP[facility] Reason for Visit [...] BE BASED ON THE PRIMARY CLINICAL RECORDS. [facility] [employer] [facility]. provides no warranty or guarantee of the accuracy or completeness of information in this document.
[2024-01-28 10:09] VITALS: BP 126/83; PULSE 98
== END 2024-01-28 10:45 | disposition home or self-care (01) ==
LOC: FBCO 06:58 → FBC 10:00
PROVIDERS: PCP Nurse Practitioner Family; Visit Provider Obstetrics & Gynecology
DX: O10.913 Unspecified pre-existing hypertension complicating pregnancy, third trimester (principal)
CPT/HCPCS: 59025

== ENCOUNTER 2024-01-31 10:05 | Outpatient (OUT) | payer OTHER, SELFPAY ==
--- OUTSIDE RECORDS SUMMARY | 2024-01-30 23:52 | XMS_ITS ---
Patient Summarization (C-CDA 2.1 CCD) Created on: January 30, 2024 FLORENCIA CANO~FLORINDA DON : 2000 Sex: Female Author Organization Sample organization Care Team Providers Care Sales Account Representative Name Role Phone JOSE ., LITA Admitting [...] ARIANE Primary Care Unavailable PAY ., DR NELOSN Admitting Unavailable PAY ., DR NELSON Attending [...] source) Ibuprofen Drug Allergy 01-15-2016 [facility] Repository (2 sources) Ibuprofen Drug Allergy [...] Heartburn Start: 09-22-2023 End: 09-22-2023 ambulatory BELKIS JESSICA [...] End: 01-06-2022 ambulatory LITA GARCIA . Facility: Medications Current Medications Medication Drug Class(es) Dates [...] [employer] [employer] [id number] 2021-Present [address] [place] [address] [id number] 2000 Unknown [id number] [id number] 2000 Unknown [id number] 2.16.840.1.272750.3.579.2.593 2000 Unknown [id number] 2.16.840.1.335374.3.579.2.593 2000 Unknown [id number] 2.16.840.1.903738.3.579.2.593 2000 Unknown [id number] 2.16.840.1.881820.3.579.2.1258 2000 Unknown [id number] 2.16.840.1.411353.3.579.2.1258 2000 Unknown [id number] 2.16.840.1.084197.3.579.2.1258 2000 Unknown [id number] 2.16.840.1.597807.3.579.2.1258 2000 Unknown [id number] 2.16.840.1.910543.3.579.2.1258 2000 Unknown [id number] 2.16.840.1.938690.3.579.2.9 2000 Unknown [id number] 2.16.840.1.579247.3.579.2.1258 2000 Unknown [id number] 2.16.840.1.618300.3.579.2.1258 2000 Unknown [id number] 2.16.840.1.125790.3.579.2.1258 2000 Unknown [id number] 2.16.840.1.437919.3.579.2.1258 2000 Unknown [id number] 2.16.840.1.183930.3.579.2.9 1959 Unknown [id number] Plan of Treatment Date Care Activity Detail Author Start: 10-20-2023 End: 10-20-2023 Patient encounter procedure 10/20/2023 3:10 PM EST Routine [facility] [address] [id number] Belkis Lopez DO [address] [place] [address] [facility] Start: 09-22-2023 End: 09-22-2024 Alpha fetoprotein, maternal Alpha fetoprotein, maternal Lab Routine Second trimester Need for maternal serum alpha-protein (MSAFP) screening Expected: 09/22/2023 (Approximate), Expires: 09/22/2024 [facility] Comment on above: Expected: 09/22/2023 (Approximate), Expires: 09/22/2024 Start: 09-22-2023 End: 09-22-2024 US for US OB ANATOMY SINGLE W US OB CERVICAL LENGTH Imaging Routine Screening, , for anatomic survey Expected: 09/22/2023 (Approximate), Expires: 09/22/2024 [facility] Comment on above: Expected: 09/22/2023 (Approximate), Expires: 09/22/2024 CHLAMYDIA TRACHOMATI S (GENITO/STI) CHLAMYDIA TRACHOMATIS (GENITO/STI) Lab Routine Exposure to STD Ordered: 09/22/2023 [facility] Comment on above: Ordered: 09/22/2023 Cytology Cervical or vaginal smear or scraping study Pap Smear Pathology and Cytology Routine Well woman exam with routine gynecological exam Ordered: 09/22/2023 [facility] Comment on above: Ordered: 09/22/2023 Neisseria gonorrhoea e DNA [Presence] in Unspecified specimen by OC with probe detection Neisseria gonorrhea DNA probe, direct Lab Routine Exposure to STD Ordered: 09/22/2023 [facility] Comment on above: Ordered: 09/22/2023 SURESWAB(R) ADVANCED VAGINITIS PLUS, TMA SURESWAB(R) ADVANCED VAGINITIS PLUS, TMA Pathology and Cytology Routine Exposure to STD Ordered: 09/22/2023 [facility] Work Phone: Comment on above: [...] dip stick/tabl et rgnt non-auto w/o micrscp [employer] Phone: Start: 09-22-2023 IGP,APTIMA HPV,AGE GDLN Belkis [employer] Phone: Results Test Name Value Interpretation Reference Range Facility IGP,APTIMA HPV,AGE GDLNon AGE GDLN ACOG TESTING Note . [facility] Comment on above: TESTS RESULT FLAG UN ITS REF RANGE LAB Clinician Provided Cytology Information Source.............Cervix Other.............. No. of containers..01 ThinPrep Vial Age Algo ACOG Bina... FLAG LEGEND: L-Low Normal,H-High Normal,LL-Alert Low,HH-Alert High <-Panic Low,>-Panic High,A-Abnormal,AA-Critical Abnormal Performed at: 01 =[facility] [address] [id number] Lali Holloway MD, IGP, RFX APTIMA HPV ASCU Note . [facility] Comment on above: TESTS RESULT FLAG UN ITS REF RANGE LAB DIAGNOSIS: 02 NEGATIVE FOR INTRAEPITHELIAL LESION OR MALIGNANCY. Specimen adequacy: 02 Satisfactory for evaluation. No endocervical component is identified. An endocervical component is not commonly seen in the patient. Performed by: 02 Kieran Pickering, Clinical Trials Nurse ([facility]) . 02 Note: Note 02 [...] <-Panic Low,>-Panic High,A-Abnormal,AA-Critical Abnormal Performed at: [address] [id number] Lali Holloway MD, Performed at: =[facility] [id number] Dental Associate: Lali Holloway MD, Phone: [phone] Performed at: [facility] [address] [id number] Dental Associate: Lali Holloway MD, Phone: [phone] [facility] Urinalysis macro (dipstick) panel (U)on 09-22-2023 Bilirubin, UA Negative Negative - 4(70) +++ mg/dL [facility] Blood, UA Negative Negative - 50 Flash/mcL [facility] Clarity, UA Clear [facility] Color, UA Yellow [facility] Glucose, UA Negative Negative - 1999(110) ++++ mg/dL [facility] Interpretation and review of laboratory results Abnormal [facility] Ketones, UA Positive Negative - 160(16) ++++ mg/dL [facility] Leukocytes, UA Negative Negative - 500+++ Taylor/mcL [facility] Nitrite, UA Negative Negative - Positive [facility] pH, UA 5.5 5 - 9 [facility] Protein, UA Negative Negative - 2000(20) ++++ mg/dL [facility] Spec Grav, UA 1.020 1 - 1.03 [facility] Urobilinogen, UA 0.2 0.2 - 12 mg/dL [facility] COMPLIANCE DRUG SCREENon PDF . Normal [facility] Comment on above: Performed By: #### U RCX #### [facility] [address] [address] [address] Tisha Carr Summary FINAL Normal [facility] Comment on above: Result Comment: = [...] test is not intended to distinguish between dlsyd-2-fxpjmyvcltbplappdahn, the predominant form of THC in most herbal or marijuana-based products, and hwpyl-4-pcgjacakakctkwtxamzw. Methylphenidate PRESENT UNEXPECTED Ritalinic Acid PRESENT UNEXPECTED [...] Performed By: #### U RCX #### [facility] [address] [place] [address] Dr. Tisha Carr URIC ACID RAND URINEon 10-31 Uric Acid, Urine 67.3 mg/dL Normal Not Estab. [facility] Comment on above: Performed By: #### U RCX #### [facility] [address] [place] [address] Dr. Tisha Carr DRUG SCREEN RAPID (URINE)on 10-30-2022 AMP Negative Normal NEGATIVE [facility] Comment on above: Performed By: #### U RCX #### [facility] [address] [place] [address] Dr. Tisha Carr BAR Negative Normal NEGATIVE [facility] Comment on above: Performed By: #### U RCX #### [facility] [address] [place] [address] Dr. Tisha Carr BUP Negative Normal NEGATIVE [facility] Comment on above: Performed By: #### U RCX #### [facility] [address] [place] [address] Dr. Tisha Carr BZO Negative Normal NEGATIVE [facility] Comment on above: Performed By: #### U RCX #### [facility] [address] [address] [address] Tisha Carr SOCRATES Negative Normal NEGATIVE [facility] Comment on above: Performed By: #### U RCX #### [facility] [address] [address] [address] Tisha Carr CUT-OFFS SEE BELOW Normal [facility] Comment on above: Result Comment: AMP [...] Performed By: #### U RCX #### [facility] [address] [place] [address] Dr. Tisha Carr DRUG CUT HEADER DRUG CLASS TEST SYST EM CUT-OFF CONCENTRATIONS ARE FOLLOWS: Normal [facility] Comment on above: Performed By: #### U RCX #### [facility] [address] [place] [address] Dr. Tisha Carr mAMP Negative Normal NEGATIVE [facility] Comment on above: Performed By: #### U RCX #### [facility] [address] [address] [address] Tisha Carr MTD Negative Normal NEGATIVE [facility] Comment on above: Performed By: #### U RCX #### [facility] [address] [address] [address] Tisha Carr OPI Negative Normal NEGATIVE [facility] Comment on above: Performed By: #### U RCX #### [facility] [address] [address] [address] Tisha Carr OXY Negative Normal NEGATIVE [facility] Comment on above: Performed By: #### U RCX #### [facility] [address] [place] [address] Dr. Tisha Carr PCP Negative Normal NEGATIVE [facility] Comment on above: Performed By: #### U RCX #### [facility] [address] [place] [address] Dr. Tisha Carr PPX Negative Normal NEGATIVE [facility] Comment on above: Performed By: #### U RCX #### [facility] [address] [place] [address] Dr. Tisha Carr TCA Negative Normal NEGATIVE [facility] Comment on above: Performed By: #### U RCX #### [facility] [address] [place] [address] Dr. Tisha Carr THC Positive Abnormal NEGATIVE [facility] Comment on above: Performed By: #### U RCX #### [facility] [address] [place] [address] Dr. Tisha Carr CBC AUTO DIFFon 06-21-2022 BASO # 0.0 103/ul Normal 0.0-0.1 [facility] Comment on above: Performed By: #### U RCX #### [facility] [address] [place] [address] Dr. Tisha Carr Basophils/100 WBC (Bld) 0.2 % Normal 0.2-2.0 [facility] Comment on above: Performed By: #### U RCX #### [facility] [address] [place] [address] Dr. Tisha Carr EO # 0.0 103/ul Normal 0.0-0.7 [facility] Comment on above: Performed By: #### U RCX #### [facility] [address] [place] [address] Dr. Tisha Carr Eosinophils/100 WBC (Bld) 0.2 % Critically low 0.9-7.0 [facility] Comment on above: Performed By: #### U RCX #### [facility] [address] [place] [address] Dr. Tisha Carr Erythrocyte distribution width (RBC) [Ratio] 12.3 % Normal 11.0-15.0 [facility] Comment on above: Performed By: #### U RCX #### [facility] [address] [place] [address] Dr. Tisha Carr Hematocrit (Bld) [Volume fraction] 43.1 % Normal 36.0-48.0 [facility] Comment on above: Performed By: #### U RCX #### [facility] [address] [place] [address] Dr. Tisha Carr Hemoglobin (Bld) [Mass/Vol] 15.1 g/dL Normal 12.0-16.0 [facility] Comment on above: Performed By: #### U RCX #### [facility] [address] [place] [address] Dr. Tisha Carr IG # 0.06 10e3/ul Critically high 0.00-0.03 [facility] Comment on above: Performed By: #### U RCX #### [facility] [address] [place] [address] Dr. Tisha Carr IG % 0.5 % Normal 0.0-0.5 [facility] Comment on above: Performed By: #### U RCX #### [facility] [address] [place] [address] Dr. Tisha Carr LYMPH # 1.0 103/ul Critically low 1.2-3.8 [facility] Comment on above: Performed By: #### U RCX #### [facility] [address] [place] [address] Dr. Tisha Carr Lymphocytes/100 WBC (Bld) 8.2 % Critically low 20.5-60.0 [facility] Comment on above: Performed By: #### U RCX #### [facility] [address] [place] [address] Dr. Tisha Carr MANUAL DIFF REQ NO Normal [facility] Comment on above: Performed By: #### U RCX #### [facility] [address] [place] [address] Dr. Tisha Carr MCH (RBC) [Entitic mass] 30.3 pg Normal 26.7-34.0 [facility] Comment on above: Performed By: #### U RCX #### [facility] [address] [place] [address] Dr. Tisha Carr MCHC (RBC) [Mass/Vol] 35.0 g/dL Normal 29.9-35.2 [facility] Comment on above: Performed By: #### U RCX #### [facility] [address] [place] [address] Dr. Tisha Carr MCV (RBC) [Entitic vol] 86.4 fL Normal 81.0-99.0 [facility] Comment on above: Performed By: #### U RCX #### [facility] [address] [place] [address] Dr. Tisha Carr MONO # 0.8 103/ul Normal 0.3-0.8 [facility] Comment on above: Performed By: #### U RCX #### [facility] [address] [place] [address] Dr. Tisha Carr Monocytes/100 WBC (Bld) 6.0 % Normal 1.7-12.0 [facility] Comment on above: Performed By: #### U RCX #### [facility] [address] [place] [address] Dr. Tisha Carr NEUT # 10.8 103/ul Critically high 1.4-6.5 [facility] Comment on above: Performed By: #### U RCX #### [facility] [address] [place] [address] Dr. Tisha Carr Neutrophils/100 WBC (Bld) 84.9 % Critically high 43.0-75.0 [facility] Comment on above: Performed By: #### U RCX #### [facility] [address] [place] [address] Dr. Tisha Carr Platelet mean volume (Bld) [Entitic vol] 10.8 fL Normal 9.5-13.5 [facility] Comment on above: Performed By: #### U RCX #### [facility] [address] [place] [address] Dr. Tisha Carr PLT 237 103/ul Normal 150-450 [facility] Comment on above: Performed By: #### U RCX #### [facility] [address] [place] [address] Dr. Tisha Carr RBC 4.99 106/ul Normal 4.20-5.40 [facility] Comment on above: Performed By: #### U RCX #### [facility] [address] [place] [address] Dr. Tisha Carr WBC 12.7 103/ul Critically high 4.0-11.0 [facility] Comment on above: Performed By: #### U RCX #### [facility] [address] [place] [address] Dr. Tisha Carr CRPon 06-21-2022 CRP 10.0 mg/dL Critically high <=1.0 [facility] Comment on above: Performed By: #### C RP, CMP, LIPA #### [facility] [address] [place] [address] Dr. Tisha Carr ER URINE PROFILEon 2 Bilirubin Ql (U) SMALL Abnormal NEGATIVE [facility] Comment on above: Performed By: #### YULY BRYANT PREGU #### [facility] [address] [place] [address] Dr. Tisha Carr Clarity (U) CLEAR Normal CLEAR [facility] Comment on above: Performed By: #### E YULY CUMMINS, PREGU #### [facility] [address] [place] [address] Dr. Tisha Carr Color (U) YELLOW Normal YELLOW [facility] Comment on above: Performed By: #### E YULY CUMMINS, PREGU #### [facility] [address] [place] [address] Dr. Tisha Carr ERUAHIsidra A micrscopic examina tion will be performed if indicated. Normal [facility] Comment on above: Performed By: #### E RURYULY, PREGU #### [facility] [address] [place] [address] Dr. Tisha Carr Glucose Ql (U) Negative Normal NEGATIVE [facility] Comment on above: Performed By: #### E RUR, UMICRO, PREGU #### [facility] [address] [address] [address] Tisha Carr Hemoglobin Ql (U) MODERATE Abnormal NEGATIVE [facility] Comment on above: Performed By: #### E RUR, UMICRO, PREGU #### [facility] [address] [address] [address] Tisha Carr Ketones Ql (U) 80 mg/dl Abnormal NEGATIVE [facility] Comment on above: Performed By: #### E RUR UMICRO, PREGU #### [facility] [address] [place] [address] Dr. Tisha Carr LEUKOCYTES Negative Normal NEGATIVE [facility] Comment on above: Performed By: #### Sofi RUR UMICRO, PREGU #### [facility] [address] [address] [address] Tisha Carr Nitrite Ql (U) Negative Normal NEGATIVE [facility] Comment on above: Performed By: #### Sofi RUR UMICRO, PREGU #### [facility] [address] [address] [address] Tisha Carr pH (U) 6.0 [pH] Normal 5-9 [facility] Comment on above: Performed By: #### Sofi RUR UMICRO, PREGU #### [facility] [address] [address] [address] Tisha Carr SPEC GRAVITY 1.025 Normal 1.005-<=1.025 [facility] Comment on above: Performed By: #### Sofi RUR UMICRO, PREGU #### [facility] [address] [place] [address] Dr. Tisha Carr UA PROTEIN TRACE Normal NEGATIVE/ TRACE [facility] Comment on above: Performed By: #### E RUR, UMICRO, PREGU #### [facility] [address] [address] [address] Tisha Carr UR MICRO IND INDICATED Normal [facility] Comment on above: Performed By: #### E YULY CUMMINS, PREGU #### [facility] [address] [address] [address] Tisha Carr Urobilinogen Qn (U) 1.0 {Alma'U}/dL Normal 0.2 - 1.0 [facility] Comment on above: Performed By: #### E YULY CUMMINS, PREGU #### [facility] [address] [address] [address] Tisha Carr LACTATE/LACTIC ACIDon 2021 Lactate [Moles/Vol] 1.0 mmol/L Normal 0.4-1.9 [facility] Comment on above: Performed By: #### U RCX #### [facility] [address] [place] [address] Dr. Tisha Carr LIPASEon 06-21-2022 Lipase [Catalytic activity/Vol] 41.0 U/L Critically low 73.0-393.0 [facility] Comment on above: Performed By: #### C RP, CMP, LIPA #### [facility] [address] [place] [address] Dr. Tisha Carr URon 06-21-2022 , QUAL Negative Normal NEGATIVE [facility] Comment on above: Performed By: #### YULY BRYANT, PREGU #### [facility] [address] [place] [address] Dr. Tisha Carr PROF 14(COMP METB)on 022 Albumin [Mass/Vol] 4.0 g/dL Normal 3.4-5.0 [facility] Comment on above: Performed By: #### C RP, CMP, LIPA #### [facility] [address] [place] [address] Dr. Tisha Carr Albumin/Globulin [Mass ratio] 1.0 {ratio} Normal [facility] Comment on above: Performed By: #### C RP, CMP, LIPA #### [facility] [address] [place] [address] Dr. Tisha Carr ALP [Catalytic activity/Vol] 74 U/L Normal 46-116 [facility] Comment on above: Performed By: #### C RP, CMP, LIPA #### [facility] [address] [address] [address] Tisha Carr ALT [Catalytic activity/Vol] 33 U/L Normal 14-59 [facility] Comment on above: Performed By: #### C RP, CMP, LIPA #### [facility] [address] [address] [address] Tisha Carr Anion gap [Moles/Vol] 15.8 mmol/L Normal [facility] Comment on above: Performed By: #### C RP, CMP, LIPA #### [facility] [address] [place] [address] Dr. Tisha Carr AST [Catalytic activity/Vol] 17 U/L Normal 15-37 [facility] Comment on above: Performed By: #### C RP, CMP, LIPA #### [facility] [address] [place] [address] Dr. Tisha Carr Bilirubin [Mass/Vol] 1.3 mg/dL Critically high 0.2-1.0 [facility] Comment on above: Performed By: #### C RP, CMP, LIPA #### [facility] [address] [place] [address] Dr. Tisha Carr Calcium [Mass/Vol] 9.2 mg/dL Normal 8.5-10.1 [facility] Comment on above: Performed By: #### C RP, CMP, LIPA #### [facility] [address] [place] [address] Dr. Tisha Carr Chloride [Moles/Vol] 102 mmol/L Normal 98-107 [facility] Comment on above: Performed By: #### C RP, CMP, LIPA #### [facility] [address] [place] [address] Dr. Tisha Carr CO2 [Moles/Vol] 22.7 mmol/L Normal 21.0-32.0 [facility] Comment on above: Performed By: #### C RP, CMP, LIPA #### [facility] [address] [address] [address] Tisha Carr Creatinine [Mass/Vol] 0.70 mg/dL Normal 0.55-1.02 [facility] Comment on above: Performed By: #### C RP, CMP, LIPA #### [facility] [address] [address] [address] Tisha Carr EGFR-AF ZIMBABWEAN >60 Normal >=60 [facility] Comment on above: Performed By: #### C RP, CMP, LIPA #### [facility] [address] [address] [address] Tisha Carr EGFR-NON AF ZIMBABWEAN >60 Normal >=60 [facility] Comment on above: Performed By: #### C RP, CMP, LIPA #### [facility] [address] [address] [address] Tisha Carr Globulin (S) [Mass/Vol] 4.2 g/dL Normal [facility] Comment on above: Performed By: #### C RP, CMP, LIPA #### [facility] [address] [address] [address] Tisha Carr Glucose [Mass/Vol] 93 mg/dL Normal 74-106 [facility] Comment on above: Performed By: #### C RP, CMP, LIPA #### [facility] [address] [address] [address] Tisha Carr Potassium [Moles/Vol] 3.5 mmol/L Normal 3.5-5.1 [facility] Comment on above: Performed By: #### C RP, CMP, LIPA #### [facility] [address] [address] [address] Tisha Carr Protein [Mass/Vol] 8.2 g/dL Normal 6.4-8.2 [facility] Comment on above: Performed By: #### C RP, CMP, LIPA #### [facility] [address] [address] [address] Tisha Carr Sodium [Moles/Vol] 137 mmol/L Normal 136-145 [facility] Comment on above: Performed By: #### C RP, CMP, LIPA #### [facility] [address] [address] [address] Tisha Carr Urea nitrogen [Mass/Vol] 16.0 mg/dL Normal 7.0-18.0 [facility] Comment on above: Performed By: #### C RP, CMP, LIPA #### [facility] [address] [address] [address] Tisha Carr Urea nitrogen/Creatinin e [Mass ratio] 22.9 mg/mg Normal [facility] Comment on above: Performed By: #### C RP, CMP, LIPA #### [facility] [address] [address] [address] Tisha Carr URINE MICROSCOPIC ONLYon BACTERIA TRACE Abnormal NONE SEEN [facility] Comment on above: Performed By: #### E RUR, UMICRO, PREGU #### [facility] [address] [place] [address] Dr. Tisha Carr Bacteria identified Cx Nom (U) NOT INDICATED Normal [facility] Comment on above: Performed By: #### E RUR, UMICRO, PREGU #### [facility] [address] [address] [address] Tisha Carr CAST NONE SEEN Normal NONE SEEN [facility] Comment on above: Performed By: #### E RUR, UMICRO, PREGU #### [facility] [address] [place] [address] Dr. Tisha Carr Crystals LM Nom (Urine sed) NONE SEEN Normal NONE SEEN [facility] Comment on above: Performed By: #### E RUR, UMICRO, PREGU #### [facility] [address] [address] [address] Tisha Carr Epithelial cells LM Ql (Urine sed) MODERATE Abnormal NONE SEEN /RARE [facility] Comment on above: Performed By: #### E RUR, UMICRO, PREGU #### [facility] [address] [address] [address] Tisha Carr MUCOUS MODERATE Abnormal NONE SEEN [facility] Comment on above: Performed By: #### E RUR, UMICRO, PREGU #### [facility] [address] [address] [address] Tisha Carr RBC 0-2 Normal 0-2 [facility] Comment on above: Performed By: #### E YULY CUMMINS, PREGU #### [facility] [address] [address] [address] Tisha Carr WBC 0-2 Abnormal NONE SEEN [facility] Comment on above: Performed By: #### E YULY CUMMINS, PREGU #### [facility] [address] [address] [address] Tisha Carr PAP ACOG PANEL 2: 21 to 29on 04-11-2022 . . Normal [facility] Comment on above: Performed By: #### U RCX #### [facility] [address] [address] [address] Tisha Carr Age Gdln ACOG Testing - Normal [facility] Comment on above: Performed By: #### U RCX #### [facility] [address] [address] [address] Tisha Carr DIAGNOSIS: Comment Normal [facility] Comment on above: Result Comment: NEGA TIVE FOR INTRAEPITHELIAL LESION OR MALIGNANCY. FUNGAL ORGANISMS MORPHOLOGICALLY CONSISTENT WITH SHEREE SPECIES ARE PRESENT. Performed By: #### U RCX #### [facility] [address] [address] [address] Tisha Carr Methodology: Comment Normal [facility] Comment on above: Result Comment: This liquid based ThinPrep(R) pap test was screened with the use of an image guided system. Performed By: #### U RCX #### [facility] [address] [address] [address] Tisha Carr Note: Comment Normal [facility] Comment on above: Result Comment: The Pap smear is a screening test designed to aid in the detection of premalignant and malignant conditions of the uterine cervix. It is not a diagnostic procedure and should not be used as the sole means of detecting cervical cancer. Both false-positive and false-negative reports do occur. . Performed By: #### U RCX #### [facility] [address] [place] [address] Dr. Tisha Carr Performed by: Comment Normal [facility] Comment on above: Result Comment: Caleb Schaeffer, Clinical Trials Nurse (ASCP) Performed By: #### U RCX #### [facility] [address] [place] [address] Dr. Tisha Carr Reflex Criteria: Comment Normal [facility] Comment on above: Result Comment: The HPV DNA reflex criteria were not met with this specimen result therefore, no HPV testing was performed. . Performed By: #### U RCX #### [facility] [address] [address] [address] Tisha Carr Specimen adequacy: Comment Normal [facility] Comment on above: Result Comment: Sati sfactory for evaluation. Endocervical and/or squamous metaplastic cells (endocervical component) are present. Performed By: #### U RCX #### [facility] [address] [place] [address] Dr. Tisha Carr CULTURE URINEon 01-08-2022 CULTURE [...] F Trimethoprim/Sulfamethox azole <=20 S F Normal [facility] Comment on above: Performed By: #### U RCX #### [facility] [address] [place] [address] Dr. Tisha Carr Covid-19 PCR (CVDTB)on 12-23 SARS-CoV-2 (COVID-19) RNA OC+probe Ql (Unsp spec) Not detected Normal NOT DETECTED [facility] Comment on above: Result Comment: This test is not yet approved or cleared by the [place] FDA. When there are no FDA-approved or cleared tests available, and other criteria are met, FDA can make tests available under an emergency access mechanism called an Emergency Use Authorization (EUA). The EUA for this test is supported by the [place] of Health and Human Service's (HHS's) declaration [...] Performed By: #### C VDTBH #### [facility] [address] [place] [address] Dr. Tisha Carr ER URINE PROFILEon 2 Bilirubin Ql (U) MODERATE Abnormal NEGATIVE [facility] Comment on above: Performed By: #### E YULY CUMMINS PREGU #### [facility] [address] [place] [address] Dr. Tisha Carr Clarity (U) CLEAR Normal CLEAR [facility] Comment on above: Performed By: #### E YULY CUMMNIS PREGU #### [facility] [address] [place] [address] Dr. Tisha Carr Color (U) DK. YELLOW Normal YELLOW [facility] Comment on above: Performed By: #### E YULY CUMMINS, PREGU #### [facility] [address] [place] [address] Dr. Tisha Carr ERUAHD A micrscopic examina tion will be performed if indicated. Normal [facility] Comment on above: Performed By: #### E RURYULY, PREGU #### [facility] [address] [place] [address] Dr. Tisha Carr Glucose Ql (U) Negative Normal NEGATIVE [facility] Comment on above: Performed By: #### E RUR, UMICRO, PREGU #### [facility] [address] [place] [address] Dr. Tisha Carr Hemoglobin Ql (U) Negative Normal NEGATIVE [facility] Comment on above: Performed By: #### E RUR, UMICRO, PREGU #### [facility] [address] [address] [address] Tisha Carr Ketones Ql (U) >=80 Abnormal NEGATIVE [facility] Comment on above: Performed By: #### E RUR, UMICRO, PREGU #### [facility] [address] [place] [address] Dr. Tisha Carr LEUKOCYTES TRACE Abnormal NEGATIVE [facility] Comment on above: Performed By: #### E RUR, UMICRO, PREGU #### [facility] [address] [place] [address] Dr. Tisha Carr Nitrite Ql (U) Negative Normal NEGATIVE [facility] Comment on above: Performed By: #### E RUR, UMICRO, PREGU #### [facility] [address] [address] [address] Tisha Carr pH (U) 6.0 [pH] Normal 5-9 [facility] Comment on above: Performed By: #### E RUR, UMICRO, PREGU #### [facility] [address] [address] [address] Tisha Carr Protein (U) [Mass/Vol] 100 mg/dL Abnormal NEGATIVE/ TRACE [facility] Comment on above: Performed By: #### E RUR, UMICRO, PREGU #### [facility] [address] [address] [address] Tisha Carr SPEC GRAVITY 1.025 Normal 1.005-<=1.025 [facility] Comment on above: Performed By: #### E RUR, UMICRO, PREGU #### [facility] [address] [address] [address] Tisha Carr UR MICRO IND INDICATED Normal [facility] Comment on above: Performed By: #### E YULY CUMMINS, PREGU #### [facility] [address] [place] [address] Dr. Tisha Carr Urobilinogen Qn (U) 1.0 {Alma'U}/dL Normal 0.2 - 1.0 [facility] Comment on above: Performed By: #### E YULY CUMMINS, MARCELAU #### [facility] [address] [place] [address] Dr. Tisha Carr INFLUENZA A AND B AGon 01-06 INFLUANEGH SEE BELOW Normal [facility] Comment on above: Result Comment: Nega tive for Flu A protein angiten. Infection due to Flu A cannot be ruled out. Flu A angiten in the sample may be below the detection limit of the test. Performed By: #### U RCX #### [facility] [address] [place] [address] Dr. Tisha Carr INFLUBNEGH SEE BELOW Normal [facility] Comment on above: Result Comment: Nega tive for Flu B protein antigen. Infection due to Flu B cannot be ruled out. Flu B antigen in the sample may be below the detection limit of the test. Performed By: #### U RCX #### [facility] [address] [place] [address] Dr. Tisha Carr INFLUENZA A AG Negative Normal NEGATIVE SEE COMMENT [facility] Comment on above: Performed By: #### U RCX #### [facility] [address] [place] [address] Dr. Tisha Carr INFLUENZA B AG Negative Normal NEGATIVE SEE COMMENT [facility] Comment on above: Performed By: #### U RCX #### [facility] [address] [place] [address] Dr. Tisha Carr INTERNAL CONTROLS Within Normal Limits Normal Wi thin Normal Limits [facility] Comment on above: Performed By: #### U RCX #### [facility] [address] [place] [address] Dr. Tisha Carr URon 01-06-2022 , QUAL Negative Normal NEGATIVE [facility] Comment on above: Performed By: #### E RUR, UMICRO, PREGU #### [facility] [address] [address] [address] Tisha Carr URINE MICROSCOPIC ONLYon BACTERIA SMALL Abnormal NONE SEEN [facility] Comment on above: Performed By: #### U RCX #### [facility] [address] [address] [address] Tisha Carr Bacteria identified Cx Nom (U) INDICATED Normal [facility] Comment on above: Performed By: #### U RCX #### [facility] [address] [address] [address] Tisha Carr CAST NONE SEEN Normal NONE SEEN [facility] Comment on above: Performed By: #### U RCX #### [facility] [address] [address] [address] Tisha Carr Crystals LM Nom (Urine sed) NONE SEEN Normal NONE SEEN [facility] Comment on above: Performed By: #### U RCX #### [facility] [address] [address] [address] Tisha Carr Epithelial cells LM Ql (Urine sed) MANY Abnormal NONE SEEN /RARE [facility] Comment on above: Performed By: #### U RCX #### [facility] [address] [address] [address] Tisha Carr MUCOUS LARGE Abnormal NONE SEEN [facility] Comment on above: Performed By: #### U RCX #### [facility] [address] [address] [address] Tisha Carr RBC NONE SEEN Abnormal 0-2 [facility] Comment on above: Performed By: #### U RCX #### [facility] [address] [address] [address] Tisha Carr WBC 5-10 Abnormal NONE SEEN [facility] Comment on above: Performed By: #### U RCX #### [facility] [address] [address] [address] Tisha Carr Social History Date Type Detail Facility Start: 07-03-2023 Gender identity Identifies as female gender (finding) [facility] Start: 05-22-2023 [facility] Start: 2000 [facility] Sexual orientation Not on file [facility] Vital Signs Date Time Vital Sign Value Performing Clinician Faci lity 09-22-2023 16:01-0500 Body weight 89.09 kg Belkis Jessica DO Work Phone: [facility] 09-22-2023 16:01-0500 Diastolic blood pressure 70 mm[Hg] Belkis Jessica DO Work Phone: [facility] 09-22-2023 16:01-0500 Systolic blood pressure 120 mm[Hg] Belkis Jessica DO Work Phone: [facility] History of Present illness Narrative 09-22-2023 Nora LeyvaSHAMAR bryan - 09/22/2023 3:20 PM EST Note Date [...] Problems Past Medical History: Diagnosis Date Asthma ([facility]) No family history on file. Social [...] nursing note reviewed. Exam conducted with a returned telephone equipment appraiser present. Vitals: There is no height or [...] content) DATE CREATED AUTHOR 11/07/2022 [facility] DATE CREATED AUTHOR AUTHOR'S ORGANIZ ATION 01/28/2024 [facility] EPIC Reason for Visit [...] BE BASED ON THE PRIMARY CLINICAL RECORDS. [employer] [facility]. provides no warranty or guarantee of the accuracy or completeness of information in this document.
--- OUTSIDE RECORDS SUMMARY | 2024-01-31 10:12 | XMS_ITS | CCD ---
Author Organization [facility] Inform ion Partnership [facility] Care Team Providers Care Technical Training Coordinator Name Role Phone JOSE ., LITA Admitting [...] Consulting Unavailable Unavailable Primary Care Provider UnavailNIRAJ Carirllo Attending Unavailable JESSICA, BELKIS Attending Unavailable JESSICA, BELKIS Attending Unavailable JESSICA, BELKIS Attending Unavailable JESSICA, BELKIS Attending Unavailable JESSICA, BELKIS Attending Unavailable JESSICA, BELKIS Attending Unavailable JESSICA, BELKIS Attending Unavailable JESSICA, BELKIS Attending Unavailable JESSICA, BELKIS Attending Unavailable Allergies Allergy Classification Reported Allergen(s) Allergy Type Date of Onset Reaction(s) Facility (1 source) Ibuprofen Drug Allergy 01-15-2016 [facility] Repository (2 sources) Ibuprofen Drug Allergy 07-10-2023 Unknown [facility] Healthcare Work Phone: Medications Current Medications [...] GDLNon AGE GDLN ACOG TESTING Note . [facility] Healthcare Comment on above: TESTS RESULT FLAG U NITS REF RANGE LAB Clinician Provided Cytology Information Source.............Cervix Other.............. No. of containers..01 ThinPrep Vial Age Algo ACOG Bina... 21- 01 FLAG LEGEND: L-Low Normal,H-High Normal,LL-Alert Low,HH-Alert High <-Panic Low,>-Panic High,A-Abnormal,AA-Critical Abnormal Performed at: 01 =G [facility] [address] [place] [address] Lali Holloway MD, IGP, RFX APTIMA HPV ASCU Note . [facility] Comment on above: TESTS RESULT FLAG UN ITS REF RANGE LAB DIAGNOSIS: 02 NEGATIVE FOR INTRAEPITHELIAL LESION OR MALIGNANCY. Specimen adequacy: 02 Satisfactory for evaluation. No endocervical component is identified. An endocervical component is not commonly seen in the patient. Performed by: 02 Kieran Pickering, Automation Sales Manager ([facility]) . 02 Note: Note 02 The [...] <-Panic Low,>-Panic High,A-Abnormal,AA-Critical Abnormal Performed at: [address] [id number] Lali Holloway MD, Performed at: =G - [facility] [address] [id number] Clean Up Helper Banquet: Lali Holloway MD, Phone: [phone] Performed at: [facility] [id number] Clean Up Helper Banquet: Lali Holloway MD, Phone: [phone] [facility] Urinalysis macro (dipstick) panel (U)on 09-22-2023 Bilirubin, UA Negative Negative - 4(70) +++ mg/dL [facility] Blood, UA Negative Negative - 50 Flash/mcL [facility] Clarity, UA Clear [facility] Color, UA Yellow [facility] Glucose, UA Negative Negative - 1999(110) ++++ mg/dL [facility] Interpretation and review of laboratory results Abnormal [facility] Ketones, UA Positive Negative - 160(16) ++++ mg/dL [facility] Leukocytes, UA Negative Negative - 500+++ Taylor/mcL [facility] Nitrite, UA Negative Negative - Positive [facility] pH, UA 5.5 5 - [address] [facility] Protein, UA Negative Negative - 1999(20) ++++ mg/dL [facility] Spec Grav, UA 1.020 1 - 1.[address] [facility] Urobilinogen, UA 0.2 0.2 - 12 mg/dL [facility] COMPLIANCE DRUG SCREENon PDF . Normal [facility] Comment on above: Performed By: #### U RCX #### [facility] Laboratory [address] [place] [address] Dr. Tisha Carr Summary FINAL Normal [facility] Comment on above: Result Comment: = TOXASSURE [...] test is not intended to distinguish between dhfbu-2-ievgddkaptajfkrjevyd, the predominant form of THC in most herbal or marijuana-based products, and rkelf-3-rifydajaxkiqrdzxyrvj. Methylphenidate PRESENT UNEXPECTED Ritalinic Acid PRESENT UNEXPECTED [...] = Performed By: #### U RCX #### [facility] Laboratory [address] [place] [address] Dr. Tisha Carr URIC ACID RAND URINEon 10-31 Uric Acid, Urine 67.3 mg/dL Normal Not Estab. [facility] Comment on above: Performed By: #### U RCX #### [facility] Laboratory [address] [place] [address] Dr. Tisha Carr DRUG SCREEN RAPID (URINE)on 10-30-2022 AMP Negative Normal NEGATIVE [facility] Comment on above: Performed By: #### U RCX #### [facility] Laboratory [address] [place] [address] Dr. Tisha Carr BAR Negative Normal NEGATIVE [facility] Comment on above: Performed By: #### U RCX #### [facility] Laboratory [address] [place] [address] Dr. Tisha Carr BUP Negative Normal NEGATIVE [facility] Comment on above: Performed By: #### U RCX #### [facility] Laboratory [address] [place] [address] Dr. Tisha Carr BZO Negative Normal NEGATIVE [facility] Comment on above: Performed By: #### U RCX #### [facility] Laboratory [address] [place] [address] Dr. Tisha Carr SOCRATES Negative Normal NEGATIVE [facility] Comment on above: Performed By: #### U RCX #### [facility] Laboratory [address] [place] [address] Dr. Tisha Carr CUT-OFFS SEE BELOW Normal [facility] Comment on above: Result Comment: AMP [...] ng/mL Performed By: #### U RCX #### [facility] Laboratory [address] [place] [address] Dr. Tisha Carr DRUG CUT HEADER DRUG CLASS TEST SYST EM CUT-OFF CONCENTRATIONS ARE FOLLOWS: Normal [facility] Comment on above: Performed By: #### U RCX #### [facility] Laboratory [address] [place] [address] Dr. Tisha Carr mAMP Negative Normal NEGATIVE [facility] Comment on above: Performed By: #### U RCX #### [facility] Laboratory [address] [place] [address] Dr. Tisha Carr MTD Negative Normal NEGATIVE [facility] Comment on above: Performed By: #### U RCX #### [facility] Laboratory [address] [place] [address] Dr. Tisha Carr OPI Negative Normal NEGATIVE [facility] Comment on above: Performed By: #### U RCX #### [facility] Laboratory [address] [place] [address] Dr. Tisha Carr OXY Negative Normal NEGATIVE [facility] Comment on above: Performed By: #### U RCX #### [facility] Laboratory [address] [place] [address] Dr. Tisha Carr PCP Negative Normal NEGATIVE [facility] Comment on above: Performed By: #### U RCX #### [facility] Laboratory [address] [place] [address] Dr. Tisha Carr PPX Negative Normal NEGATIVE [facility] Comment on above: Performed By: #### U RCX #### [facility] Laboratory [address] [place] [address] Dr. Tisha Carr TCA Negative Normal NEGATIVE [facility] Comment on above: Performed By: #### U RCX #### [facility] Laboratory [address] [place] [address] Dr. Tisha Carr THC Positive Abnormal NEGATIVE [facility] Comment on above: Performed By: #### U RCX #### [facility] Laboratory [address] [address] [address] Tisha Carr CBC AUTO DIFFon 06-21-2022 BASO # 0.0 103/ul Normal 0.0-0.1 [facility] Comment on above: Performed By: #### U RCX #### [facility] Laboratory [address] [place] [address] Dr. Tisha Carr Basophils/100 WBC (Bld) 0.2 % Normal 0.2-2.0 [facility] Comment on above: Performed By: #### U RCX #### [facility] Laboratory [address] [place] [address] Dr. Tisha Carr EO # 0.0 103/ul Normal 0.0-0.7 [facility] Comment on above: Performed By: #### U RCX #### [facility] Laboratory [address] [place] [address] Dr. Tisha Carr Eosinophils/100 WBC (Bld) 0.2 % Critically low 0.9-7.0 [facility] Comment on above: Performed By: #### U RCX #### [facility] Laboratory [address] [place] [address] Dr. Tisha Carr Erythrocyte distribution width (RBC) [Ratio] 12.3 % Normal 11.0-15.0 [facility] Comment on above: Performed By: #### U RCX #### [facility] Laboratory [address] [place] [address] Dr. Tisha Carr Hematocrit (Bld) [Volume fraction] 43.1 % Normal 36.0-48.0 [facility] Comment on above: Performed By: #### U RCX #### [facility] Laboratory [address] [place] [address] Dr. Tisha Carr Hemoglobin (Bld) [Mass/Vol] 15.1 g/dL Normal 12.0-16.0 [facility] Comment on above: Performed By: #### U RCX #### [facility] Laboratory [address] [place] [address] Dr. Tisha Carr IG # 0.06 10e3/ul Critically high 0.00-0.03 [facility] Comment on above: Performed By: #### U RCX #### [facility] Laboratory [address] [address] [address] Tisha Carr IG % 0.5 % Normal 0.0-0.5 [facility] Comment on above: Performed By: #### U RCX #### [facility] Laboratory [address] [address] [address] Tisha Carr LYMPH # 1.0 103/ul Critically low 1.2-3.8 [facility] Comment on above: Performed By: #### U RCX #### [facility] Laboratory [address] [address] [address] Tisha Carr Lymphocytes/100 WBC (Bld) 8.2 % Critically low 20.5-60.0 [facility] Comment on above: Performed By: #### U RCX #### [facility] Laboratory [address] [place] [address] Dr. Tisha Carr MANUAL DIFF REQ NO Normal [facility] Comment on above: Performed By: #### U RCX #### [facility] Laboratory [address] [place] [address] Dr. Tisha Carr MCH (RBC) [Entitic mass] 30.3 pg Normal 26.7-34.0 [facility] Comment on above: Performed By: #### U RCX #### [facility] Laboratory [address] [place] [address] Dr. Tisha Carr MCHC (RBC) [Mass/Vol] 35.0 g/dL Normal 29.9-35.2 [facility] Comment on above: Performed By: #### U RCX #### [facility] Laboratory [address] [address] [address] Tisha Carr MCV (RBC) [Entitic vol] 86.4 fL Normal 81.0-99.0 [facility] Comment on above: Performed By: #### U RCX #### [facility] Laboratory [address] [address] [address] Tisha Carr MONO # 0.8 103/ul Normal 0.3-0.8 [facility] Comment on above: Performed By: #### U RCX #### [facility] Laboratory [address] [address] [address] Tisha Carr Monocytes/100 WBC (Bld) 6.0 % Normal 1.7-12.0 [facility] Comment on above: Performed By: #### U RCX #### [facility] Laboratory [address] [address] [address] Tisha Carr NEUT # 10.8 103/ul Critically high 1.4-6.5 [facility] Comment on above: Performed By: #### U RCX #### [facility] Laboratory [address] [address] [address] Tisha Carr Neutrophils/100 WBC (Bld) 84.9 % Critically high 43.0-75.0 [facility] Comment on above: Performed By: #### U RCX #### [facility] Laboratory [address] [place] [address] Dr. Tisha Carr Platelet mean volume (Bld) [Entitic vol] 10.8 fL Normal 9.5-13.5 [facility] Comment on above: Performed By: #### U RCX #### [facility] Laboratory [address] [address] [address] Tisha Carr PLT 237 103/ul Normal 150-450 [facility] Comment on above: Performed By: #### U RCX #### [facility] Laboratory [address] [address] [address] Tisha Carr RBC 4.99 106/ul Normal 4.20-5.40 [facility] Comment on above: Performed By: #### U RCX #### [facility] Laboratory [address] [address] [address] Tisha Carr WBC 12.7 103/ul Critically high 4.0-11.0 [facility] Comment on above: Performed By: #### U RCX #### [facility] Laboratory [address] [place] [address] Dr. Tisha Carr CRPon 06-21-2022 CRP 10.0 mg/dL Critically high <=1.[address] [facility] Comment on above: Performed By: #### C RP, CMP, LIPA #### [facility] [address] [address] [address] Tisha Carr ER URINE PROFILEon 2 Bilirubin Ql (U) SMALL Abnormal NEGATIVE [facility] Comment on above: Performed By: #### E LEIGH CUMMINSICRO, PREGU #### [facility] Laboratory [address] [address] [address] Tisha Carr Clarity (U) CLEAR Normal CLEAR [facility] Comment on above: Performed By: #### E LEIGH CUMMINSICRO, PREGU #### [facility] Laboratory [address] [address] [address] Tisha Carr Color (U) YELLOW Normal YELLOW [facility] Comment on above: Performed By: #### YULY BRYANT, PREGU #### [facility] Laboratory [address] [address] [address] Tisha QUEZADA A micrscopic examina tion will be performed if indicated. Normal [facility] Comment on above: Performed By: #### NHAN BRYANTRO, PREGU #### [facility] Laboratory [address] [address] [address] Tisha Carr Glucose Ql (U) Negative Normal NEGATIVE [facility] Comment on above: Performed By: #### YULY BRYANT, PREGU #### [facility] Laboratory [address] [address] [address] Tisha Carr Hemoglobin Ql (U) MODERATE Abnormal NEGATIVE [facility] Comment on above: Performed By: #### YULY BRYANT, PREGU #### [facility] Laboratory [address] [address] [address] Tisha Carr Ketones Ql (U) 80 mg/dl Abnormal NEGATIVE [facility] Comment on above: Performed By: #### YULY BRYANT, PREGU #### [facility] Laboratory [address] [address] [address] Tisha Carr LEUKOCYTES Negative Normal NEGATIVE [facility] Comment on above: Performed By: #### YULY BRYANT, PREGU #### [facility] Laboratory [address] [address] [address] Tisha Carr Nitrite Ql (U) Negative Normal NEGATIVE [facility] Comment on above: Performed By: #### YULY BRYANT PREGU #### [facility] Laboratory [address] [address] [address] Tisha Carr pH (U) 6.0 [pH] Normal 5-9 [facility] Comment on above: Performed By: #### YULY BRYANT PREGU #### [facility] Laboratory [address] [place] [address] Dr. Tisha Carr SPEC GRAVITY 1.025 Normal 1.005-<=1.[address] [facility] Comment on above: Performed By: #### YULY BRYANT PREGU #### [facility] Laboratory [address] [place] [address] Dr. Tisha Carr UA PROTEIN TRACE Normal NEGATIVE/ TRACE [facility] Comment on above: Performed By: #### YULY BRYANT PREGU #### [facility] [address] [place] [address] Dr. Tisha Carr UR MICRO IND INDICATED Normal [facility] Comment on above: Performed By: #### YULY BRYANT PREGU #### [facility] Laboratory [address] [place] [address] Dr. Tisha Carr Urobilinogen Qn (U) 1.0 {Alma'U}/dL Normal 0.2 - 1.0 [facility] Comment on above: Performed By: #### YULY BRYANT PREGU #### [facility] Laboratory [address] [place] [address] Dr. Tisha Carr LACTATE/LACTIC ACIDon 2021 Lactate [Moles/Vol] 1.0 mmol/L Normal 0.4-1.9 [facility] Comment on above: Performed By: #### U RCX #### [facility] Laboratory [address] [place] [address] Dr. Tisha Carr LIPASEon 06-21-2022 Lipase [Catalytic activity/Vol] 41.0 U/L Critically low 73.0-393.0 [facility] Comment on above: Performed By: #### C RP, CMP, LIPA #### [facility] [address] [address] [address] Tisha Carr URon 06-21-2022 , QUAL Negative Normal NEGATIVE [facility] Comment on above: Performed By: #### E RUR, UMICRO, PREGU #### [facility] [address] [address] [address] Tisha Carr PROF 14(COMP METB)on 022 Albumin [Mass/Vol] 4.0 g/dL Normal 3.4-5.0 [facility] Comment on above: Performed By: #### C RP, CMP, LIPA #### [facility] [address] [place] [address] Dr. Tisha Carr Albumin/Globulin [Mass ratio] 1.0 {ratio} Normal [facility] Comment on above: Performed By: #### C RP, CMP, LIPA #### [facility] [address] [address] [address] Tisha Carr ALP [Catalytic activity/Vol] 74 U/L Normal 46-116 [facility] Comment on above: Performed By: #### C RP, CMP, LIPA #### [facility] [address] [place] [address] Dr. Tisha Carr ALT [Catalytic activity/Vol] 33 U/L Normal 14-59 [facility] Comment on above: Performed By: #### C RP, CMP, LIPA #### [facility] [address] [address] [address] Tisha Carr Anion gap [Moles/Vol] 15.8 mmol/L Normal [facility] Comment on above: Performed By: #### C RP, CMP, LIPA #### [facility] [address] [place] [address] Dr. Tisha Carr AST [Catalytic activity/Vol] 17 U/L Normal 15-37 [facility] Comment on above: Performed By: #### C RP, CMP, LIPA #### [facility] [address] [address] [address] Tisha aCrr Bilirubin [Mass/Vol] 1.3 mg/dL Critically high 0.2-1.0 [facility] Comment on above: Performed By: #### C RP, CMP, LIPA #### [facility] [address] [address] [address] Tisha Carr Calcium [Mass/Vol] 9.2 mg/dL Normal 8.5-10.1 [facility] Comment on above: Performed By: #### C RP, CMP, LIPA #### [facility] [address] [address] [address] Tisha Carr Chloride [Moles/Vol] 102 mmol/L Normal 98-107 [facility] Comment on above: Performed By: #### C RP, CMP, LIPA #### [facility] Laboratory [address] [place] [address] Dr. Tisha Carr CO2 [Moles/Vol] 22.7 mmol/L Normal 21.0-32.0 [facility] Comment on above: Performed By: #### C RP, CMP, LIPA #### [facility] Laboratory [address] [place] [address] Dr. Tisha Carr Creatinine [Mass/Vol] 0.70 mg/dL Normal 0.55-1.02 [facility] Comment on above: Performed By: #### C RP, CMP, LIPA #### [facility] [address] [place] [address] Dr. Tisha Carr EGFR-AF TRISTANIAN >60 Normal >=60 [facility] Comment on above: Performed By: #### C RP, CMP, LIPA #### [facility] [address] [place] [address] Dr. Tisha Carr EGFR-NON AF TRISTANIAN >60 Normal >=60 [facility] Comment on above: Performed By: #### C RP, CMP, LIPA #### [facility] [address] [place] [address] Dr. Tisha Carr Globulin (S) [Mass/Vol] 4.2 g/dL Normal [facility] Comment on above: Performed By: #### C RP, CMP, LIPA #### [facility] [address] [address] [address] Tisha Carr Glucose [Mass/Vol] 93 mg/dL Normal 74-[address] [facility] Comment on above: Performed By: #### C RP, CMP, LIPA #### [facility] [address] [place] [address] Dr. Tisha Carr Potassium [Moles/Vol] 3.5 mmol/L Normal 3.5-5.1 [facility] Comment on above: Performed By: #### C RP, CMP, LIPA #### [facility] [address] [place] [address] Dr. Tisha Carr Protein [Mass/Vol] 8.2 g/dL Normal 6.4-8.[address] [facility] Comment on above: Performed By: #### C RP, CMP, LIPA #### [facility] [address] [place] [address] Dr. Tisha Carr Sodium [Moles/Vol] 137 mmol/L Normal 136-[address] [facility] Comment on above: Performed By: #### C RP, CMP, LIPA #### [facility] [address] [place] [address] Dr. Tisha Carr Urea nitrogen [Mass/Vol] 16.0 mg/dL Normal 7.0-18.0 [facility] Comment on above: Performed By: #### C RP, CMP, LIPA #### [facility] [address] [place] [address] Dr. Tisha Carr Urea nitrogen/Creatinin e [Mass ratio] 22.9 mg/mg Normal [facility] Comment on above: Performed By: #### C RP, CMP, LIPA #### [facility] [address] [place] [address] Dr. Tisha Carr URINE MICROSCOPIC ONLYon BACTERIA TRACE Abnormal NONE SEEN [facility] Comment on above: Performed By: #### E RUR, NHANRO, PREGU #### [facility] [address] [place] [address] Dr. Tisha Carr Bacteria identified Cx Nom (U) NOT INDICATED Normal [facility] Comment on above: Performed By: #### E YULY CUMMINS, PREGU #### [facility] [address] [place] [address] Dr. Tisha Carr CAST NONE SEEN Normal NONE SEEN [facility] Comment on above: Performed By: #### E RURYULY, PREGU #### [facility] [address] [place] [address] Dr. Tisha Carr Crystals LM Nom (Urine sed) NONE SEEN Normal NONE SEEN [facility] Comment on above: Performed By: #### E RUYULY Leone, PREGU #### [facility] [address] [place] [address] Dr. Tisha Carr Epithelial cells LM Ql (Urine sed) MODERATE Abnormal NONE SEEN /RARE [facility] Comment on above: Performed By: #### LEIGH BRYANTICELLE, PREGU #### [facility] [address] [place] [address] Dr. Tisha Carr MUCOUS MODERATE Abnormal NONE SEEN [facility] Comment on above: Performed By: #### YULY BRYANT, PREGU #### [facility] [address] [place] [address] Dr. Tisha Carr RBC 0-2 Normal 0-2 [facility] Comment on above: Performed By: #### YULY BRYANT, PREGU #### [facility] [address] [place] [address] Dr. Tisha Carr WBC 0-2 Abnormal NONE SEEN [facility] Comment on above: Performed By: #### E YULY CUMMINS, PREGU #### [facility] [address] [place] [address] Dr. Tisha Carr PAP ACOG PANEL 2: 21 to 29on 04-11-2022 . . Normal [facility] Comment on above: Performed By: #### U RCX #### [facility] [address] [place] [address] Dr. Tisha Carr Age Gdln ACOG Testing 21-29 Normal [facility] Comment on above: Performed By: #### U RCX #### [facility] [address] [place] [address] Dr. Tisha Carr DIAGNOSIS: Comment [facility] Comment on above: Result Comment: NEGA TIVE FOR INTRAEPITHELIAL LESION OR MALIGNANCY. FUNGAL ORGANISMS MORPHOLOGICALLY CONSISTENT WITH SHEREE SPECIES ARE PRESENT. Performed By: #### U RCX #### [facility] [address] [place] [address] Dr. Tisha Carr Methodology: Comment Normal [facility] Comment on above: Result Comment: This liquid based ThinPrep(R) pap test was screened with the use of an image guided system. Performed By: #### U RCX #### [facility] [address] [place] [address] Dr. Tisha Carr Note: Comment [facility] Comment on above: Result Comment: The Pap smear is a screening test designed to aid in the detection of premalignant and malignant conditions of the uterine cervix. It is not a diagnostic procedure and should not be used as the sole means of detecting cervical cancer. Both false-positive and false-negative reports do occur. . Performed By: #### U RCX #### [facility] [address] [place] [address] Dr. Tisha Carr Performed by: Comment Normal [facility] Comment on above: Result Comment: Caleb Schaeffer, Automation Sales Manager (ASCP) Performed By: #### U RCX #### [facility] [address] [place] [address] Dr. Tisha Carr Reflex Criteria: Comment Normal [facility] Comment on above: Result Comment: The HPV DNA reflex criteria were not met with this specimen result therefore, no HPV testing was performed. . Performed By: #### U RCX #### [facility] [address] [place] [address] Dr. Tisha Carr Specimen adequacy: Comment Normal [facility] Comment on above: Result Comment: Sati sfactory for evaluation. Endocervical and/or squamous metaplastic cells (endocervical component) are present. Performed By: #### U RCX #### [facility] [address] [place] [address] [id number] [address] Tisha Carr CULTURE URINEon 01-08-2022 CULTURE [...] Trimethoprim/Sulfamethox azole <=20 S F Normal The [facility] Comment on above: Performed By: #### U RCX #### [facility] [address] [place] [address] Dr. Tisha Carr Covid-19 PCR (CVDTB)on 12-23 SARS-CoV-2 (COVID-19) RNA OC+probe Ql (Unsp spec) Not detected Normal NOT DETECTED The [facility] Comment on above: Result Comment: This test is not yet approved or cleared by the [place] FDA. When there are no FDA-approved or cleared tests available, and other criteria are met, FDA can make tests available under an emergency access mechanism called an Emergency Use Authorization (EUA). The EUA for this test is supported by the [place] Operator of Health and Human Service's (HHS's) declaration [...] SARS-CoV-2. Performed By: #### C VDTBH #### [facility] [address] [address] [address] Tisha Carr ER URINE PROFILEon 2 Bilirubin Ql (U) MODERATE Abnormal NEGATIVE [facility] Comment on above: Performed By: #### E YULY CUMMINS, PREGU #### [facility] [address] [address] [address] Tisha Carr Clarity (U) CLEAR Normal CLEAR The [facility] Comment on above: Performed By: #### YULY BRYANT, PREGU #### [facility] [address] [address] [address] Tisha Carr Color (U) DK. YELLOW Normal YELLOW The [facility] Comment on above: Performed By: #### YULY BRYANT, PREGU #### [facility] [address] [address] [address] Tisha CONTIAHIsidra A micrscopic examina tion will be performed if indicated. Normal The [facility] Comment on above: Performed By: #### NHAN BRYANTRO, PREGU #### [facility] [address] [address] [address] Tisha Carr Glucose Ql (U) Negative Normal NEGATIVE [facility] Comment on above: Performed By: #### YULY BRYANT, PREGU #### [facility] [address] [address] [address] Tisha Carr Hemoglobin Ql (U) Negative Normal NEGATIVE The [facility] Comment on above: Performed By: #### NHAN BRYANTRO, PREGU #### [facility] [address] [address] [address] Tisha Carr Ketones Ql (U) >=80 Abnormal NEGATIVE [facility] Comment on above: Performed By: #### NHAN BRYANTRO, PREGU #### [facility] [address] [address] [address] Tisha Carr LEUKOCYTES TRACE Abnormal NEGATIVE The [facility] Comment on above: Performed By: #### YULY BRYANT, PREGU #### [facility] [address] [address] [address] Tisha Carr Nitrite Ql (U) Negative Normal NEGATIVE [facility] Comment on above: Performed By: #### YULY BRYANT PREGU #### [facility] [address] [address] [address] Tisha Carr pH (U) 6.0 [pH] Normal 5-9 [facility] Comment on above: Performed By: #### YULY BRYANT PREGU #### [facility] [address] [address] [address] Tisha Carr Protein (U) [Mass/Vol] 100 mg/dL Abnormal NEGATIVE/ TRACE The [facility] Comment on above: Performed By: #### YULY BRYANT PREGU #### [facility] [address] [place] [address] Dr. Tisha Carr SPEC GRAVITY 1.025 Normal 1.005-<=1.025 [facility] Comment on above: Performed By: #### YULY BRYANT PREGU #### [facility] [address] [address] [address] Tisha Carr UR MICRO IND INDICATED Normal [facility] Comment on above: Performed By: #### YULY BRYANT PREGU #### [facility] [address] [place] [address] Dr. Tisha Carr Urobilinogen Qn (U) 1.0 {Alma'U}/dL Normal 0.2 - 1.0 [facility] Comment on above: Performed By: #### YULY BRYANT PREGU #### [facility] [address] [place] [address] Dr. Tisha Carr INFLUENZA A AND B AGon 01-06 INFLUANEGH SEE BELOW Normal [facility] Comment on above: Result Comment: Nega tive for Flu A protein angiten. Infection due to Flu A cannot be ruled out. Flu A angiten in the sample may be below the detection limit of the test. Performed By: #### U RCX #### [facility] [address] [place] [address] Dr. Tisha Carr INFLUBNEGH SEE BELOW Normal [facility] Comment on above: Result Comment: Nega tive for Flu B protein antigen. Infection due to Flu B cannot be ruled out. Flu B antigen in the sample may be below the detection limit of the test. Performed By: #### U RCX #### [facility] [address] [place] [address] Dr. Tisha Carr INFLUENZA A AG Negative Normal NEGATIVE SEE COMMENT The [facility] Comment on above: Performed By: #### U RCX #### [facility] [address] [place] [address] Dr. Tisha Carr INFLUENZA B AG Negative Normal NEGATIVE SEE COMMENT The [facility] Comment on above: Performed By: #### U RCX #### [facility] [address] [place] [address] Dr. Tisha Carr INTERNAL CONTROLS Within Normal Limits Normal Wi thin Normal Limits The [facility] Comment on above: Performed By: #### U RCX #### [facility] [address] [place] [address] Dr. Tisha Carr URon 01-06-2022 , QUAL Negative Normal NEGATIVE The [facility] Comment on above: Performed By: #### E RUR UMMONARO, PREGU #### [facility] [address] [place] [address] Dr. Tisha Carr URINE MICROSCOPIC ONLYon BACTERIA SMALL Abnormal NONE SEEN The [facility] Comment on above: Performed By: #### U RCX #### [facility] [address] [place] [address] Dr. Tisha Carr Bacteria identified Cx Nom (U) INDICATED Normal [facility] Comment on above: Performed By: #### U RCX #### [facility] [address] [place] [address] Dr. Tisha Carr CAST NONE SEEN Normal NONE SEEN The [facility] Comment on above: Performed By: #### U RCX #### [facility] [address] [place] [address] Dr. Tisha Carr Crystals LM Nom (Urine sed) NONE SEEN Normal NONE SEEN The [facility] Comment on above: Performed By: #### U RCX #### [facility] [address] [address] [address] Tisha Carr Epithelial cells LM Ql (Urine sed) MANY Abnormal NONE SEEN /RARE The [facility] Comment on above: Performed By: #### U RCX #### [facility] [address] [address] [address] Tisha Carr MUCOUS LARGE Abnormal NONE SEEN The [facility] Comment on above: Performed By: #### U RCX #### [facility] [address] [address] [address] Tisha Carr RBC NONE SEEN Abnormal 0-2 [facility] Comment on above: Performed By: #### U RCX #### [facility] [address] [address] [address] Tisha Carr WBC 5-10 Abnormal NONE SEEN The [facility] Comment on above: Performed By: #### U RCX #### [facility] [address] [address] [address] Tisha Carr Vital Signs Date Time Vital Sign Value Performing Clinician Faci lity 09-22-2023 16:01-0500 Body weight 89.09 kg Belkis Jessica DO Work Phone: [facility] 09-22-2023 16:01-0500 Diastolic blood pressure 70 mm[Hg] Belkis Jessica DO Work Phone: [facility] 09-22-2023 16:01-0500 Systolic blood pressure 120 mm[Hg] Belkis Jessica DO Work Phone: [facility] Encounters Encounter Date Encounter Type [...] Work Phone: Start: 09-22-2023 IGP,APTIMA HPV,AGE GDLN Beklis Lopez DO Work Phone: Plan of Treatment Date Care Activity Detail Author Start: 10-20-2023 End: 10-20-2023 Patient encounter procedure 10/20/2023 3:10 PM EST Routine [facility] [address] [place] [address] Blekis Lopez, DO [address] [place] [address] [facility] Start: 09-22-2023 End: 09-22-2024 Alpha fetoprotein, maternal Alpha fetoprotein, maternal Lab Routine Second trimester Need for maternal serum alpha-protein (MSAFP) screening Expected: 09/22/2023 (Approximate), Expires: 09/22/2024 [facility] Comment on above: Expected: 09/22/2023 (Approximate), Expires: 09/22/2024 Start: 09-22-2023 End: 09-22-2024 US for US OB ANATOMY SINGLE W US OB CERVICAL LENGTH Imaging Routine Screening, , for anatomic survey Expected: 09/22/2023 (Approximate), Expires: 09/22/2024 [facility] Comment on above: Expected: 09/22/2023 (Approximate), Expires: 09/22/2024 CHLAMYDIA TRACHOMATI S (GENITO/STI) CHLAMYDIA TRACHOMATIS (GENITO/STI) Lab Routine Exposure to STD Ordered: 09/22/2023 [facility] Comment on above: Ordered: 09/22/2023 Cytology Cervical or vaginal smear or scraping study Pap Smear Pathology and Cytology Routine Well woman exam with routine gynecological exam Ordered: 09/22/2023 [facility] Comment on above: Ordered: 09/22/2023 Neisseria gonorrhoea e DNA [Presence] in Unspecified specimen by OC with probe detection Neisseria gonorrhea DNA probe, direct Lab Routine Exposure to STD Ordered: 09/22/2023 [facility] Comment on above: Ordered: 09/22/2023 SURESWAB(R) ADVANCED VAGINITIS PLUS, TMA SURESWAB(R) ADVANCED VAGINITIS PLUS, TMA Pathology and Cytology Routine Exposure to STD Ordered: 09/22/2023 [facility] Work Phone: Comment on above: Ordered: 09/22/2023 Payers Date Payer Category Payer Medicaid [employer] [place] [employer] [id number] 2021-Present [address] [place] [address] [id number] 2000 Unknown [id number] [id number] 2000 Unknown [id number] 2.16.840.1.385340.3.579.2.593 2000 Unknown [id number] 2.16.840.1.432765.3.579.2.593 2000 Unknown [id number] 2.16.840.1.893307.3.579.2.593 2000 Unknown [id number] 2.16.840.1.543779.3.579.2.1259 2000 Unknown [id number] 2.16.840.1.133388.3.579.2.1259 2000 Unknown [id number] 2.16.840.1.460852.3.579.2.9 2000 Unknown [id number] 2.16.840.1.217766.3.579.2.1259 2000 Unknown [id number] 2.16.840.1.947729.3.579.2.1258 2000 Unknown [id number] 2.16.840.1.917900.3.579.2.9 2000 Unknown [id number] 2.16.840.1.230410.3.579.2.1259 2000 Unknown [id number] 2.16.840.1.988564.3.579.2.1259 2000 Unknown [id number] 2.16.840.1.215585.3.579.2.1259 2000 Unknown [id number] 2.16.840.1.102392.3.579.2.1259 2000 Unknown [id number] 2.16.840.1.417044.3.579.2.1259 1959 Unknown [id number] Social History Date Type Detail Facility Tobacco smoking stat [facility] Tobacco smoking consumption unknown [facility] Start: [...] Problems Past Medical History: Diagnosis Date Asthma ([facility]) No family history on file. [...] nursing note reviewed. Exam conducted with a wool scourer present. Vitals: There is no height or [...] Nora Riggs LPN on behalf of: Belkis Loepz DO documented in this encounter [facility] [...] DATE CREATED AUTHOR AUTHOR'S ORGANIZ ATION 01/28/2024 [facility] EPIC Reason for Visit [...] BE BASED ON THE PRIMARY CLINICAL RECORDS. [facility]. provides no warranty or guarantee of the accuracy or completeness of information in this document.
--- NOTE | 2024-01-31 11:03 | US_ITS ---
[address] [address] Patient Name: FLORENCIA NEELY MRN: [id number] date: 2000 Sex: F Assigned Patient Location: [facility] Current Patient Location: Accession/Order Number: [id number] Exam Date: 01/31/2024 11:04 Report Date: 02/01/2024 04:08 At the request of: BELKIS BRAND Procedure: US OB BPP w non-stress EXAMINATION: US OB BPP w non-stress HISTORY: Insulin controlled gestational diabetes mellitus O24.414 COMPARISON: Ultrasound OB biophysical 01/24/2024 TECHNIQUE: Ultrasound biophysical profile was performed in the radiology department. BREATHING MOVEMENTS: 2.0 GROSS BODY MOVEMENTS: 2.0 TONE: 2.0 QUALITATIVE AMNIOTIC FLUID VOLUME: 2.0 PRESENTATION: CEPHALIC HEART RATE: 142.9 bpm bpm. AMNIOTIC FLUID VOLUME: 18.1 cm GESTATIONAL AGE: 38 weeks 2 days CONCLUSION: Total biophysical profile score 8.0. Electronically authenticated by: MERVAT LANG Date: 02/01/2024 04:08
[2024-01-31 11:21] VITALS: BP 139/86; PULSE 100
[2024-01-31 12:01] VITALS: BP 131/87; PULSE 92
== END 2024-01-31 12:05 ==
LOC: US 10:09 → FBC 11:01
PROVIDERS: PCP Nurse Practitioner Family; Visit Provider Obstetrics & Gynecology
DX: O24.414 Gestational diabetes mellitus in pregnancy, insulin controlled (principal); Z3A.38 38 weeks gestation of pregnancy
CPT/HCPCS: 76818

== ENCOUNTER 2024-02-05 05:06 | Inpatient (IN) | payer OTHER, SELFPAY ==
[2024-02-05] VITALS (32 sets, daily range): BP systolic 101–172; BP diastolic 52–101; PULSE 59–104; TEMP 35.6–36.9
--- OUTSIDE RECORDS SUMMARY | 2024-02-05 05:09 | XMS_ITS | CCD ---
Author Organization [facility] Inform ion Partnership [facility] Care Team Providers Care Ash Handler Name Role Phone JOSE ., LITA Admitting [...] (1 source) Ibuprofen Drug Allergy 01-15-2016 [facility] Repository (2 sources) Ibuprofen Drug Allergy 07-10-2023 Unknown [facility] Healthcare Work Phone: Medications Current Medications [...] GDLNon AGE GDLN ACOG TESTING Note . [facility] Healthcare Comment on above: TESTS RESULT FLAG UN ITS REF RANGE LAB Clinician Provided Cytology Information Source.............Cervix Other.............. No. of containers..01 ThinPrep Vial Age Algo ACOG Bina... -22 09 FLAG LEGEND: L-Low Normal,H-High Normal,LL-Alert Low,HH-Alert High <-Panic Low,>-Panic High,A-Abnormal,AA-Critical Abnormal Performed at: 01 =G [facility] [place] [address] Lali Holloway MD, IGP, RFX APTIMA HPV ASCU Note . [facility] Comment on above: TESTS RESULT FLAG UN ITS REF RANGE LAB DIAGNOSIS: 02 NEGATIVE FOR INTRAEPITHELIAL LESION OR MALIGNANCY. Specimen adequacy: 02 Satisfactory for evaluation. No endocervical component is identified. An endocervical component is not commonly seen in the patient. Performed by: 02 Kieran Pickering, Theatre Arts Professor ([facility]) . 02 Note: Note 02 The Pap [...] <-Panic Low,>-Panic High,A-Abnormal,AA-Critical Abnormal Performed at: [address] [place] [address] Lali Holloway MD, Performed at: =[facility] [id number] Arc Cutter: Lali Holloway MD, Phone: [phone] Performed at: WB - [facility]Tino [address]onzales, [place] [id number] Arc Cutter: Lali Holloway MD, Phone: [phone] [facility] Urinalysis macro (dipstick) panel (U)on 09-22-2023 Bilirubin, UA Negative Negative - 4(70) +++ mg/dL [facility] Blood, UA Negative Negative - 50 Flash/mcL [facility] Clarity, UA Clear [facility] Color, UA Yellow [facility] Glucose, UA Negative Negative - 2000(110) ++++ mg/dL [facility] Interpretation and review of laboratory results Abnormal [facility] Ketones, UA Positive Negative - 160(16) ++++ mg/dL [facility] Leukocytes, UA Negative Negative - 500+++ Taylor/mcL [facility] Nitrite, UA Negative Negative - Positive [facility] pH, UA 5.5 5 - 9 [facility] Protein, UA Negative Negative - 1999(20) ++++ mg/dL [facility] Spec Grav, UA 1.020 1 - 1.03 [facility] Urobilinogen, UA 0.2 0.2 - 12 mg/dL [facility] COMPLIANCE DRUG SCREENon PDF . Normal [facility] Comment on above: Performed By: #### U RCX #### [facility] [address] [address] [address] Tisha Carr Summary FINAL Normal [facility] [...] test is not intended to distinguish between henxv-[id number], the predominant form of THC in most herbal or marijuana-based products, and fitow-[id number]-tlhduakfvurbenuwlnpy. Methylphenidate PRESENT UNEXPECTED Ritalinic Acid PRESENT UNEXPECTED [...] = Performed By: #### U RCX #### [facility] [address] [place] [address] Dr. Tisha Carr URIC ACID RAND URINEon 10-31 Uric Acid, Urine 67.3 mg/dL Normal Not Estab. [facility] Comment on above: Performed By: #### U RCX #### [facility] [address] [place] [address] Dr. Tisha Carr DRUG SCREEN RAPID (URINE)on 10-30-2022 AMP Negative Normal NEGATIVE [facility] Comment on above: Performed By: #### U RCX #### [facility] [address] [place] [address] Dr. Tisha Carr BAR Negative Normal NEGATIVE [facility] Comment on above: Performed By: #### U RCX #### [facility] [address] [place] [address] Dr. Tisha Carr BUP Negative Normal NEGATIVE [facility] Comment on above: Performed By: #### U RCX #### [facility] [address] [place] [address] Dr. Tisha Carr BZO Negative Normal NEGATIVE [facility] Comment on above: Performed By: #### U RCX #### [facility] [address] [place] [address] Dr. Tisha Carr SOCRATES Negative Normal NEGATIVE [facility] Comment on above: Performed By: #### U RCX #### [facility] [address] [place] [address] Dr. Tisha Carr CUT-OFFS SEE BELOW Normal [facility] Comment on above: Result Comment: AMP [...] ng/mL Performed By: #### U RCX #### [facility] [address] [place] [address] Dr. Tisha Carr DRUG CUT HEADER DRUG CLASS TEST SYST EM CUT-OFF CONCENTRATIONS ARE FOLLOWS: Normal [facility] Comment on above: Performed By: #### U RCX #### [facility] [address] [address] [address] Tisha Carr mAMP Negative Normal NEGATIVE [facility] Comment on above: Performed By: #### U RCX #### [facility] [address] [place] [address] Dr. Tisha Carr MTD Negative Normal NEGATIVE [facility] Comment on above: Performed By: #### U RCX #### [facility] [address] [place] [address] Dr. Tisha Carr OPI Negative Normal NEGATIVE [facility] Comment on above: Performed By: #### U RCX #### [facility] [address] [place] [address] Dr. Tisha Carr OXY Negative Normal NEGATIVE [facility] Comment on above: Performed By: #### U RCX #### [facility] [address] [place] [address] Dr. Tisha Carr PCP Negative Normal NEGATIVE [facility] Comment on above: Performed By: #### U RCX #### [facility] [address] [place] [address] Dr. Tisha Carr PPX Negative Normal NEGATIVE [facility] Comment on above: Performed By: #### U RCX #### [facility] [address] [place] [address] Dr. Tisha Carr TCA Negative Normal NEGATIVE [facility] Comment on above: Performed By: #### U RCX #### [facility] [address] [place] [address] Dr. Tisha Carr THC Positive Abnormal NEGATIVE [facility] Comment on above: Performed By: #### U RCX #### [facility] [address] [address] [address] Tisha Carr CBC AUTO DIFFon 06-21-2022 BASO # 0.0 103/ul Normal 0.0-0.1 [facility] Comment on above: Performed By: #### U RCX #### [facility] [address] [place] [address] Dr. Tisha Carr Basophils/100 WBC (Bld) 0.2 % Normal 0.2-2.0 [facility] Comment on above: Performed By: #### U RCX #### [facility] [address] [place] [address] Dr. Tisha Carr EO # 0.0 103/ul Normal 0.0-0.7 [facility] Comment on above: Performed By: #### U RCX #### [facility] [address] [place] [address] Dr. Tisha Carr Eosinophils/100 WBC (Bld) 0.2 % Critically low 0.9-7.0 [facility] Comment on above: Performed By: #### U RCX #### [facility] [address] [place] [address] Dr. Tisha Carr Erythrocyte distribution width (RBC) [Ratio] 12.3 % Normal 11.0-15.0 [facility] Comment on above: Performed By: #### U RCX #### [facility] [address] [place] [address] Dr. Tisha Carr Hematocrit (Bld) [Volume fraction] 43.1 % Normal 36.0-48.0 [facility] Comment on above: Performed By: #### U RCX #### [facility] [address] [place] [address] Dr. Tisha Carr Hemoglobin (Bld) [Mass/Vol] 15.1 g/dL Normal 12.0-16.0 [facility] Comment on above: Performed By: #### U RCX #### [facility] [address] [place] [address] Dr. Tisha Carr IG # 0.06 10e3/ul Critically high 0.00-0.03 [facility] Comment on above: Performed By: #### U RCX #### [facility] [address] [address] [address] Tisha Carr IG % 0.5 % Normal 0.0-0.5 [facility] Comment on above: Performed By: #### U RCX #### [facility] [address] [address] [address] Tisha Carr LYMPH # 1.0 103/ul Critically low 1.2-3.8 [facility] Comment on above: Performed By: #### U RCX #### [facility] [address] [address] [address] Tisha Carr Lymphocytes/100 WBC (Bld) 8.2 % Critically low 20.5-60.0 [facility] Comment on above: Performed By: #### U RCX #### [facility] [address] [address] [address] Tisha Carr MANUAL DIFF REQ NO Normal [facility] Comment on above: Performed By: #### U RCX #### [facility] [address] [address] [address] Tisha Carr MCH (RBC) [Entitic mass] 30.3 pg Normal 26.7-34.0 [facility] Comment on above: Performed By: #### U RCX #### [facility] [address] [address] [address] Tisha Carr MCHC (RBC) [Mass/Vol] 35.0 g/dL Normal 29.9-35.2 [facility] Comment on above: Performed By: #### U RCX #### [facility] [address] [address] [address] Tisha Carr MCV (RBC) [Entitic vol] 86.4 fL Normal 81.0-99.0 [facility] Comment on above: Performed By: #### U RCX #### [facility] [address] [address] [address] Tisha Carr MONO # 0.8 103/ul Normal 0.3-0.8 [facility] Comment on above: Performed By: #### U RCX #### [facility] [address] [address] [address] Tisha Carr Monocytes/100 WBC (Bld) 6.0 % Normal 1.7-12.0 [facility] Comment on above: Performed By: #### U RCX #### [facility] [address] [address] [address] Tisha Carr NEUT # 10.8 103/ul Critically high 1.4-6.5 [facility] Comment on above: Performed By: #### U RCX #### [facility] [address] [address] [address] Tisha Carr Neutrophils/100 WBC (Bld) 84.9 % Critically high 43.0-75.0 [facility] Comment on above: Performed By: #### U RCX #### [facility] [address] [place] [address] Dr. Tisha Carr Platelet mean volume (Bld) [Entitic vol] 10.8 fL Normal 9.5-13.5 [facility] Comment on above: Performed By: #### U RCX #### [facility] [address] [address] [address] Tisha Carr PLT 237 103/ul Normal 150-450 [facility] Comment on above: Performed By: #### U RCX #### [facility] [address] [place] [address] Dr. Tisha Carr RBC 4.99 106/ul Normal 4.20-5.40 [facility] Comment on above: Performed By: #### U RCX #### [facility] [address] [address] [address] Tisha Carr WBC 12.7 103/ul Critically high 4.0-11.0 [facility] Comment on above: Performed By: #### U RCX #### [facility] [address] [place] [address] Dr. Tisha Carr CRPon 06-21-2022 CRP 10.0 mg/dL Critically high <=1.0 [facility] Comment on above: Performed By: #### C RP, CMP, LIPA #### [facility] [address] [address] [address] Tisha Carr ER URINE PROFILEon 2 Bilirubin Ql (U) SMALL Abnormal NEGATIVE [facility] Comment on above: Performed By: #### E RUR, UMICRO, PREGU #### [facility] [address] [address] [address] Tisha Carr Clarity (U) CLEAR Normal CLEAR [facility] Comment on above: Performed By: #### E RUR, UMICRO, PREGU #### [facility] [address] [address] [address] Tisha Carr Color (U) YELLOW Normal YELLOW [facility] Comment on above: Performed By: #### E RUR, UMICRO, PREGU #### [facility] [address] [address] [address] Tisha Carr ERUAHD A micrscopic examina tion will be performed if indicated. Normal [facility] Comment on above: Performed By: #### E RUR, UMICRO, PREGU #### [facility] [address] [address] [address] Tisha Carr Glucose Ql (U) Negative Normal NEGATIVE [facility] Comment on above: Performed By: #### E RUR, UMICRO, PREGU #### [facility] [address] [address] [address] Tisha Carr Hemoglobin Ql (U) MODERATE Abnormal NEGATIVE [facility] Comment on above: Performed By: #### E RUR, UMICRO, PREGU #### [facility] [address] [address] [address] Tisha Carr Ketones Ql (U) 80 mg/dl Abnormal NEGATIVE [facility] Comment on above: Performed By: #### E RUR, UMICRO, PREGU #### [facility] [address] [address] [address] Tisha Carr LEUKOCYTES Negative Normal NEGATIVE [facility] Comment on above: Performed By: #### E RUR, UMICRO, PREGU #### [facility] [address] [address] [address] Tisha Carr Nitrite Ql (U) Negative Normal NEGATIVE [facility] Comment on above: Performed By: #### YULY BRYANT, PREGU #### [facility] [address] [address] [address] Tisha Carr pH (U) 6.0 [pH] Normal 5-9 [facility] Comment on above: Performed By: #### YULY BRYANT, PREGU #### [facility] [address] [address] [address] Tisha Carr SPEC GRAVITY 1.025 Normal 1.005-<=1.025 [facility] Comment on above: Performed By: #### YULY BRYANT PREGU #### [facility] [address] [place] [address] Dr. Tisha Carr UA PROTEIN TRACE Normal NEGATIVE/ TRACE [facility] Comment on above: Performed By: #### YULY BRYANT PREGU #### [facility] [address] [address] [address] Tisha Carr UR MICRO IND INDICATED Normal [facility] Comment on above: Performed By: #### YULY BRYANT PREGU #### [facility] [address] [place] [address] Dr. Tisha Carr Urobilinogen Qn (U) 1.0 {Alma'U}/dL Normal 0.2 - 1.0 [facility] Comment on above: Performed By: #### YULY BRYANT PREGU #### [facility] [address] [place] [address] Dr. Tisha Carr LACTATE/LACTIC ACIDon 2021 Lactate [Moles/Vol] 1.0 mmol/L Normal 0.4-1.9 [facility] Comment on above: Performed By: #### U RCX #### [facility] [address] [place] [address] Dr. Tisha Carr LIPASEon 06-21-2022 Lipase [Catalytic activity/Vol] 41.0 U/L Critically low 73.0-393.0 [facility] Comment on above: Performed By: #### C RP, CMP, LIPA #### [facility] [address] [address] [address] Tisha Carr URon 06-21-2022 , QUAL Negative Normal NEGATIVE [facility] Comment on above: Performed By: #### E RUR, UMICRO, PREGU #### [facility] [address] [address] [address] Tisha Carr PROF 14(COMP METB)on 022 Albumin [Mass/Vol] 4.0 g/dL Normal 3.4-5.0 [facility] Comment on above: Performed By: #### C RP, CMP, LIPA #### [facility] [address] [place] [address] Dr. Tisha Carr Albumin/Globulin [Mass ratio] 1.0 {ratio} Normal [facility] Comment on above: Performed By: #### C RP, CMP, LIPA #### [facility] [address] [place] [address] Dr. Tisha Carr ALP [Catalytic activity/Vol] 74 U/L Normal 46-116 [facility] Comment on above: Performed By: #### C RP, CMP, LIPA #### [facility] [address] [place] [address] Dr. Tisha Carr ALT [Catalytic activity/Vol] 33 U/L Normal 14-59 [facility] Comment on above: Performed By: #### C RP, CMP, LIPA #### [facility] [address] [place] [address] Dr. Tisha Carr Anion gap [Moles/Vol] 15.8 mmol/L Normal [facility] Comment on above: Performed By: #### C RP, CMP, LIPA #### [facility] [address] [place] [address] Dr. Tisha Carr AST [Catalytic activity/Vol] 17 U/L Normal 15-37 [facility] Comment on above: Performed By: #### C RP, CMP, LIPA #### [facility] [address] [address] [address] Tisha Carr Bilirubin [Mass/Vol] 1.3 mg/dL Critically high 0.2-1.0 [facility] Comment on above: Performed By: #### C RP, CMP, LIPA #### [facility] [address] [address] [address] Tisha Carr Calcium [Mass/Vol] 9.2 mg/dL Normal 8.5-10.1 [facility] Comment on above: Performed By: #### C RP, CMP, LIPA #### [facility] [address] [address] [address] Tisha Carr Chloride [Moles/Vol] 102 mmol/L Normal 98-107 [facility] Comment on above: Performed By: #### C RP, CMP, LIPA #### [facility] [address] [place] [address] Dr. Tisha Carr CO2 [Moles/Vol] 22.7 mmol/L Normal 21.0-32.0 [facility] Comment on above: Performed By: #### C RP, CMP, LIPA #### [facility] [address] [place] [address] Dr. Tisha Carr Creatinine [Mass/Vol] 0.70 mg/dL Normal 0.55-1.02 [facility] Comment on above: Performed By: #### C RP, CMP, LIPA #### [facility] [address] [place] [address] Dr. Tisha Carr EGFR-AF CROATIAN >60 Normal >=60 [facility] Comment on above: Performed By: #### C RP, CMP, LIPA #### [facility] [address] [place] [address] Dr. Tisha Carr EGFR-NON AF CROATIAN >60 Normal >=60 [facility] Comment on above: Performed By: #### C RP, CMP, LIPA #### [facility] [address] [place] [address] Dr. Tisha Carr Globulin (S) [Mass/Vol] 4.2 g/dL Normal [facility] Comment on above: Performed By: #### C RP, CMP, LIPA #### [facility] [address] [address] [address] Tisha Carr Glucose [Mass/Vol] 93 mg/dL Normal 74-106 [facility] Comment on above: Performed By: #### C RP, CMP, LIPA #### [facility] [address] [place] [address] Dr. Tisha Carr Potassium [Moles/Vol] 3.5 mmol/L Normal 3.5-5.1 [facility] Comment on above: Performed By: #### C RP, CMP, LIPA #### [facility] [address] [place] [address] Dr. Tisha Carr Protein [Mass/Vol] 8.2 g/dL Normal 6.4-8.2 [facility] Comment on above: Performed By: #### C RP, CMP, LIPA #### [facility] [address] [place] [address] Dr. Tisha Carr Sodium [Moles/Vol] 137 mmol/L Normal 136-145 [facility] Comment on above: Performed By: #### C RP, CMP, LIPA #### [facility] [address] [place] [address] Dr. Tisha Carr Urea nitrogen [Mass/Vol] 16.0 mg/dL Normal 7.0-18.0 [facility] Comment on above: Performed By: #### C RP, CMP, LIPA #### [facility] [address] [place] [address] Dr. Tisha Carr Urea nitrogen/Creatinin e [Mass ratio] 22.9 mg/mg Normal [facility] Comment on above: Performed By: #### C RP, CMP, LIPA #### [facility] [address] [place] [address] Dr. Tisha Carr URINE MICROSCOPIC ONLYon BACTERIA TRACE Abnormal NONE SEEN [facility] Comment on above: Performed By: #### E YULY CUMMINS, PREGU #### [facility] [address] [address] [address] Tisha Carr Bacteria identified Cx Nom (U) NOT INDICATED Normal [facility] Comment on above: Performed By: #### YULY BRYANT, PREGU #### [facility] [address] [place] [address] Dr. Tisha Carr CAST NONE SEEN Normal NONE SEEN [facility] Comment on above: Performed By: #### YULY BRYANT, PREGU #### [facility] [address] [place] [address] Dr. Tisha Carr Crystals LM Nom (Urine sed) NONE SEEN Normal NONE SEEN [facility] Comment on above: Performed By: #### YULY BRYANT, PREGU #### [facility] [address] [place] [address] Dr. Tisha Carr Epithelial cells LM Ql (Urine sed) MODERATE Abnormal NONE SEEN /RARE [facility] Comment on above: Performed By: #### YULY BRYANT, PREGU #### [facility] [address] [place] [address] Dr. Tisha Carr MUCOUS MODERATE Abnormal NONE SEEN [facility] Comment on above: Performed By: #### YULY BRYANT, PREGU #### [facility] [address] [place] [address] Dr. Tisha Carr RBC 0-2 Normal 0-2 [facility] Comment on above: Performed By: #### YULY BRYANT, PREGU #### [facility] [address] [place] [address] Dr. Tisha Carr WBC 0-2 Abnormal NONE SEEN [facility] Comment on above: Performed By: #### YULY BRYANT, PREGU #### [facility] [address] [place] [address] Dr. Tisha Carr PAP ACOG PANEL 2: 21 to 29on 04-11-2022 . . Normal [facility] Comment on above: Performed By: #### U RCX #### [facility] [address] [place] [address] Dr. Tisha Carr Age Gdln ACOG Testing 21-29 Normal [facility] Comment on above: Performed By: #### U RCX #### [facility] [address] [place] [address] Dr. Tisha Carr DIAGNOSIS: Comment Normal [facility] Comment on above: Result Comment: NEGA TIVE FOR INTRAEPITHELIAL LESION OR MALIGNANCY. FUNGAL ORGANISMS MORPHOLOGICALLY CONSISTENT WITH SHEREE SPECIES ARE PRESENT. Performed By: #### U RCX #### [facility] [address] [place] [address] Dr. Tisha Carr Methodology: Comment Normal [facility] Comment on above: Result Comment: This liquid based ThinPrep(R) pap test was screened with the use of an image guided system. Performed By: #### U RCX #### [facility] [address] [place] [address] Dr. Tisha Carr Note: Comment Normal [facility] [...] . Performed By: #### U RCX #### [facility] [address] [place] [address] Dr. Tisha Carr Performed by: Comment Normal [facility] Comment on above: Result Comment: Caleb Schaeffer, Theatre Arts Professor (ASCP) Performed By: #### U RCX #### [facility] [address] [place] [id number] Dr. Tisha Carr Reflex Criteria: Comment Normal [facility] Comment on above: Result Comment: The HPV DNA reflex criteria were not met with this specimen result therefore, no HPV testing was performed. . Performed By: #### U RCX #### [facility] [address] [place] [address] Dr. Tisha Carr Specimen adequacy: Comment Normal [facility] Comment on above: Result Comment: Sati sfactory for evaluation. Endocervical and/or squamous metaplastic cells (endocervical component) are present. Performed By: #### U RCX #### [facility] [address] [place], [place] [address] Dr. Tisha Carr CULTURE URINEon 01-08-2022 CULTURE [...] Trimethoprim/Sulfamethox azole <=20 S F Normal [facility] Comment on above: Performed By: #### U RCX #### [facility] [address] [place] [address] Dr. Tisha Carr Covid-19 PCR (CVDTBH)on 12-23 SARS-CoV-2 (COVID-19) RNA OC+probe Ql (Unsp spec) Not detected Normal NOT DETECTED [facility] Comment on above: Result Comment: This test is not yet approved or cleared by the [place] FDA. When there are no FDA-approved or cleared tests available, and other criteria are met, FDA can make tests available under an emergency access mechanism called an Emergency Use Authorization (EUA). The EUA for this test is supported by the [place] of Health and Human Service's (HHS's) declaration [...] SARS-CoV-2. Performed By: #### C VDTBH #### [facility] [address] [place] [address] [address] Tisha Carr ER URINE PROFILEon 2 Bilirubin Ql (U) MODERATE Abnormal NEGATIVE [facility] Comment on above: Performed By: #### E RUR UMICRO, PREGU #### [facility] [address] [address] [address] Tisha Carr Clarity (U) CLEAR Normal CLEAR [facility] Comment on above: Performed By: #### E PLACIDO UMICRO, PREGU #### [facility] [address] [address] [address] Tisha Carr Color (U) DK. YELLOW Normal YELLOW [facility] Comment on above: Performed By: #### YULY BRYANT, PREGU #### [facility] [address] [address] [address] Tisha Carr ERUAHD A micrscopic examina tion will be performed if indicated. Normal [facility] Comment on above: Performed By: #### LEIGH BRYANTICRO, PREGU #### [facility] [address] [address] [address] Tisha Carr Glucose Ql (U) Negative Normal NEGATIVE [facility] Comment on above: Performed By: #### NHAN BRYANTRO, PREGU #### [facility] [address] [address] [address] Tisha Carr Hemoglobin Ql (U) Negative Normal NEGATIVE [facility] Comment on above: Performed By: #### LEIGH BRYANTICRO, PREGU #### [facility] [address] [address] [address] Tisha Carr Ketones Ql (U) >=80 Abnormal NEGATIVE [facility] Comment on above: Performed By: #### LEIGH BRYANTICRO, PREGU #### [facility] [address] [address] [address] Tisha Carr LEUKOCYTES TRACE Abnormal NEGATIVE [facility] Comment on above: Performed By: #### YULY BRYANT, PREGU #### [facility] [address] [place] [address] Dr. Tisha Carr Nitrite Ql (U) Negative Normal NEGATIVE [facility] Comment on above: Performed By: #### YULY BRYANT PREGU #### [facility] [address] [place] [address] Dr. Tisha Carr pH (U) 6.0 [pH] Normal 5-9 [facility] Comment on above: Performed By: #### YULY BRYANT PREGU #### [facility] [address] [place] [address] Dr. Tisha Carr Protein (U) [Mass/Vol] 100 mg/dL Abnormal NEGATIVE/ TRACE [facility] Comment on above: Performed By: #### YULY BRYANT PREGU #### [facility] [address] [place] [address] Dr. Tisha Carr SPEC GRAVITY 1.025 Normal 1.005-<=1.025 [facility] Comment on above: Performed By: #### YULY BRYANT PREGU #### [facility] [address] [place] [address] Dr. Tisha Carr UR MICRO IND INDICATED Normal [facility] Comment on above: Performed By: #### YULY BRYANT PREGU #### [facility] [address] [place] [address] Dr. Tisha Carr Urobilinogen Qn (U) 1.0 {Alma'U}/dL Normal 0.2 - 1.0 [facility] Comment on above: Performed By: #### YULY BRYANT PREGU #### [facility] [address] [place] [address] Dr. Tisha Carr INFLUENZA A AND B AGon 01-06 INFLUANEGH SEE BELOW Normal [facility] Comment on above: Result Comment: Nega tive for Flu A protein angiten. Infection due to Flu A cannot be ruled out. Flu A angiten in the sample may be below the detection limit of the test. Performed By: #### U RCX #### [facility] [address] [place] [address] Dr. Tisha Carr INFLUBNEGH SEE BELOW Normal [facility] Comment on above: Result Comment: Nega tive for Flu B protein antigen. Infection due to Flu B cannot be ruled out. Flu B antigen in the sample may be below the detection limit of the test. Performed By: #### U RCX #### [facility] [address] [address] [address] Tisha Carr INFLUENZA A AG Negative Normal NEGATIVE SEE COMMENT [facility] Comment on above: Performed By: #### U RCX #### [facility] [address] [place] [address] Dr. Tisha Carr INFLUENZA B AG Negative Normal NEGATIVE SEE COMMENT [facility] Comment on above: Performed By: #### U RCX #### [facility] [address] [place] [address] Dr. Tisha Carr INTERNAL CONTROLS Within Normal Limits Normal Wi thin Normal Limits [facility] Comment on above: Performed By: #### U RCX #### [facility] [address] [place] [address] Dr. Tisha Carr URon 01-06-2022 , QUAL Negative Normal NEGATIVE [facility] Comment on above: Performed By: #### E RUR, UMICRO, PREGU #### [facility] [address] [place] [address] Dr. Tisha Carr URINE MICROSCOPIC ONLYon BACTERIA SMALL Abnormal NONE SEEN [facility] Comment on above: Performed By: #### U RCX #### [facility] [address] [place] [address] Dr. Tisha Carr Bacteria identified Cx Nom (U) INDICATED Normal [facility] Comment on above: Performed By: #### U RCX #### [facility] [address] [place] [address] Dr. Tisha Carr CAST NONE SEEN Normal NONE SEEN [facility] Comment on above: Performed By: #### U RCX #### [facility] [address] [place] [address] Dr. Tisha Carr Crystals LM Nom (Urine sed) NONE SEEN Normal NONE SEEN [facility] Comment on above: Performed By: #### U RCX #### [facility] [address] [address] [address] Tisha Carr Epithelial cells LM Ql (Urine sed) MANY Abnormal NONE SEEN /RARE [facility] Comment on above: Performed By: #### U RCX #### [facility] [address] [address] [address] Tisha Carr MUCOUS LARGE Abnormal NONE SEEN [facility] Comment on above: Performed By: #### U RCX #### [facility] [address] [address] [address] Tisha Carr RBC NONE SEEN Abnormal 0-2 [facility] Comment on above: Performed By: #### U RCX #### [facility] [address] [address] [address] Tisha Carr WBC 5-10 Abnormal NONE SEEN [facility] Comment on above: Performed By: #### U RCX #### [facility] [address] [address] [address] Tisha Carr Vital Signs Date Time Vital Sign Value Performing Clinician Faci lity 09-22-2023 16:01-0500 Body weight 89.09 kg Belkis Jessica DO Work Phone: [facility] 09-22-2023 16:01-0500 Diastolic blood pressure 70 mm[Hg] Belkis Jessica DO Work Phone: [facility] 09-22-2023 16:01-0500 Systolic blood pressure 120 mm[Hg] Belkis Jessica DO Work Phone: [facility] Encounters Encounter Date Encounter Type Care Provider Facility Start: 02-02-2024 End: 02-02-2024 ambulatory BELKIS JESSICA Not Available Start: 01-27-2024 End: 01-27-2024 ambulatory BELKIS JESSICA Not Available Start: 01-12-2024 End: 01-12-2024 ambulatory BELKIS JESSICA Not Available Start: 2024 End: 2024 ambulatory BELKIS JESSICA Not Available Start: 12-22-2023 End: 12-22-2023 ambulatory BELKIS JESSICA Not Available Start: 12-02-2023 End: 12-02-2023 ambulatory BELKIS JESSICA Not Available Start: 11-17-2023 End: 11-17-2023 ambulatory BELKIS JESSICA Not Available Start: 10-20-2023 End: 10-20-2023 ambulatory BELKIS JESSIAC Not Available Start: 09-22-2023 End: 09-22-2023 Patient [...] procedure 10/20/2023 3:10 PM EST Routine [facility] [address] [place] [id number] Belkis Lopez, DO [address] [place], [place] [id number] [facility] Start: 09-22-2023 End: 09-22-2024 Alpha fetoprotein, maternal Alpha fetoprotein, maternal Lab Routine Second trimester Need for maternal serum alpha-protein (MSAFP) screening Expected: 09/22/2023 (Approximate), Expires: 09/22/2024 [facility] Comment on above: Expected: 09/22/2023 (Approximate), Expires: 09/22/2024 Start: 09-22-2023 End: 09-22-2024 US for US OB ANATOMY SINGLE W US OB CERVICAL LENGTH Imaging Routine Screening, , for anatomic survey Expected: 09/22/2023 (Approximate), Expires: 09/22/2024 [facility] Comment on above: Expected: 09/22/2023 (Approximate), Expires: 09/22/2024 CHLAMYDIA TRACHOMATI S (GENITO/STI) CHLAMYDIA TRACHOMATIS (GENITO/STI) Lab Routine Exposure to STD Ordered: 09/22/2023 [facility] Comment on above: Ordered: 09/22/2023 Cytology Cervical or vaginal smear or scraping study Pap Smear Pathology and Cytology Routine Well woman exam with routine gynecological exam Ordered: 09/22/2023 [facility] Comment on above: Ordered: 09/22/2023 Neisseria gonorrhoea e DNA [Presence] in Unspecified specimen by OC with probe detection Neisseria gonorrhea DNA probe, direct Lab Routine Exposure to STD Ordered: 09/22/2023 [facility] Comment on above: Ordered: 09/22/2023 SURESWAB(R) ADVANCED VAGINITIS PLUS, TMA SURESWAB(R) ADVANCED VAGINITIS PLUS, TMA Pathology and Cytology Routine Exposure to STD Ordered: 09/22/2023 [facility] Work Phone: Comment on above: Ordered: 09/22/2023 Payers Date Payer Category Payer Medicaid [employer] [place] [employer] [id number] 2021-Present [address] [place] [address] [id number] 2000 Unknown [id number] 2000 Unknown [id number] [id number] 2000 Unknown [id number] [id number] 2000 Unknown [id number] [id number] 2000 Unknown [id number] 2.16.840.1.182926.3.579.2.1259 2000 Unknown [id number] 2.16.840.1.457996.3.579.2.9 2000 Unknown [id number] 2.16.840.1.168983.3.579.2.1259 2000 Unknown [id number] 2.16.840.1.325226.3.579.2.1258 2000 Unknown [id number] 2.16.840.1.886463.3.579.2.9 2000 Unknown [id number] 2.16.840.1.304907.3.579.2.1259 2000 Unknown [id number] 2.16.840.1.396638.3.579.2.1259 2000 Unknown [id number] 2.16.840.1.915986.3.579.2.9 2000 Unknown [id number] 2.16.840.1.918778.3.579.2.9 2000 Unknown [id number] 2.16.840.1.148449.3.579.2.1258 2000 Unknown [id number] [id number] 2000 Unknown [id number] [id number] 1959 Unknown [id number] Social History Date Type Detail Facility Tobacco smoking stat [facility] Tobacco smoking consumption unknown [facility] Start: 05-22-2023 [facility] Start: 2000 Sex Assigned At Female [facility] Start: 07-03-2023 Gender identity Identifies as female gender (finding) [facility] Sexual orientation Not on file [facility] History of Present illness Narrative 09-22-2023 Nora SHAMAR Riggs - 09/22/2023 3:20 PM EST Note Date [...] Problems Past Medical History: Diagnosis Date Asthma ([facility]) No family history on file. Social [...] nursing note reviewed. Exam conducted with a health inspector food present. Vitals: There is no height or [...] DATE CREATED AUTHOR 11/07/2022 [facility] DATE CREATED AUTHOR AUTHOR'S ORGANIZ ATION 02/02/2024 [facility] EPIC Reason for Visit (unrecogniz ed [...] BE BASED ON THE PRIMARY CLINICAL RECORDS. [facility] [employer] [facility]. provides no warranty or guarantee of the accuracy or completeness of information in this document.
[2024-02-05 05:47] LABS: Hematocrit 33.8 % (36.0-48.0); Hemoglobin 11.5 g/dL (12.0-16.0); Mean Corpuscular Hemoglobin 29.3 pg (26.7-34.0); Mean Platelet Volume 12.1 fL (9.5-13.5); Platelet Count 208 10^3/uL (150-450); Red Blood Count 3.93 10^6/uL (4.20-5.40); White Blood Count 11.8 10^3/uL (4.0-11.0)
[2024-02-05 05:59] LABS: Amphetamine Screen Urine NEGATIVE (NEGATIVE); Barbiturates Screen Urine NEGATIVE (NEGATIVE); Benzodiazepines Screen Urine NEGATIVE (NEGATIVE); Buprenorphine Screen Urine NEGATIVE (NEGATIVE); Cannabinoid Screen Urine POSITIVE (NEGATIVE); Cocaine Screen Urine NEGATIVE (NEGATIVE); Methadone Screen Urine NEGATIVE (NEGATIVE); Methamphetamines Screen Urine NEGATIVE (NEGATIVE); Opiate Screen Urine NEGATIVE (NEGATIVE); Oxycodone Screen Urine NEGATIVE (NEGATIVE); Phencyclidine Screen Urine NEGATIVE (NEGATIVE); Tricyclic Antidepressant Urine NEGATIVE (NEGATIVE)
[2024-02-05] MEDS: ONDANSETRON PF 4 MG/2 ML VIAL IV (08:19)
[2024-02-05] MEDS: 0.9 % SODIUM CHLORIDE 1,000 ML 1000 ML IV (08:43)
[2024-02-05] MEDS: ROPIVACAINE HCL/PF 400 MG/200 ML PREMIX 6 MG EPIDURAL (08:52)
[2024-02-05] MEDS: OXYTOCIN/0.9 % SODIUM CHLORIDE 20 UNITS/1,000 ML PLAST..BAG 125 UNIT IV (11:53)
--- NOTE | 2024-02-05 12:08 | PM.OBPRCVD ---
Procedure Intrapartal events: None Induction method: per pitocin protocol Delivery augmentation: rupture of membranes and pitocin Delivery monitor: external FHT and external uterine Route of delivery: Episiotomy Description: none L&D Laceration Description: none Estimated blood loss (mL): 300 Anesthesia type: possible epidural Disposition: floor Infant Delivery date: 02/05/24 Gender: male presentation: vertex Placental delivery description: Spontaneous cord description: 3 Vessels
[2024-02-05] MEDS: BENZOCAINE/MENTHOL 85 GRAM SPRAY BOTTLE 1 APPLIC TOPICAL (17:07)
[2024-02-05] MEDS: GLYCERIN/WITCH HAZEL PADS 1 PAD TOPICAL (17:08)
[2024-02-05] MEDS: ACETAMINOPHEN 325 MG TABLET 650 MG PO (18:47)
--- NOTE | 2024-02-05 19:42 | W.PC.ACHO ---
Registration Status: ADM IN Primary Language: Turkmen Preferred Language: Turkmen Report received from Kaia CABALLERO. Active Medications Generic Name Dose Route Start Last Admin Trade Name Freq PRN Reason Stop Dose Admin Acetaminophen 650 mg 02/05/24 12:09 02/05/24 18:47 Acetaminophen 325 Mg Tablet PO 650 mg Q6H PRN Administration Mild Pain Al Hydroxide/Mg Hydroxide 2,400 mg 02/05/24 12:09 Magnesium Hydroxide 2,400 Mg/10 Ml Oral.Susp PO Q6H PRN Dyspepsia Benzocaine/Menthol 1 applic 02/05/24 12:09 02/05/24 17:07 Benzocaine/Menthol 85 Gram Girard Bottle TOPICAL 1 applic Q2H PRN Administration Pain Calcium Carbonate 500 mg 02/05/24 07:38 Calcium Carbonate 500 Mg (200mg Elemental) Tab Chew PO TID PRN heartburn Carboprost Tromethamine 250 mcg 02/05/24 05:19 Carboprost Tromethamine 250 Mcg/Ml 1 Ml Vial IM 02/06/24 12:00 Q15M PRN Bleeding Diphtheria/Pertussis/Tetanus Vacc 0.5 ml 02/07/24 09:00 Adacel Diph,Pertuss(Acell),Tet Vac/Pf 0.5 Ml Adult Syringe IM 02/07/24 09:01 .ONCE ONE Docusate Sodium 100 mg 02/06/24 09:00 Docusate Sodium 100 Mg Capsule PO BID DENAE Measles/Mumps/Rubella Vaccine Live 0.5 ml 02/07/24 09:00 Measles,Mumps,Rubella Vacc/Pf 0.5 Ml Vial SQ 02/07/24 09:01 .ONCE ONE Methylergonovine Maleate 0.2 mg 02/05/24 05:19 Methylergonovine Maleate 0.2 Mg/Ml Ampule IM 02/06/24 12:00 ONCE PRN Uterine Contractility/Contract Methylergonovine Maleate 0.2 mg 02/05/24 05:19 Methylergonovine Maleate 0.2 Mg Tablet PO 02/06/24 12:00 Q4H PRN Uterine Contractility/Contract Misoprostol 600 mcg 02/05/24 05:19 Misoprostol 100 Mcg Tablet PO 02/06/24 12:00 ONCE PRN Uterine Bleeding Misoprostol 800 mcg 02/05/24 05:19 Misoprostol 100 Mcg Tablet SL 02/06/24 12:00 ONCE PRN Uterine Bleeding Misoprostol 1,000 mcg 02/05/24 05:19 Misoprostol 100 Mcg Tablet LA 02/06/24 12:00 ONCE PRN Uterine Bleeding Ondansetron HCl 4 mg 02/05/24 05:19 02/05/24 08:19 Ondansetron Pf 4 Mg/2 Ml Vial IV 4 mg Q6H PRN Administration Nausea And Vomiting Ondansetron HCl 4 mg 02/05/24 05:19 Ondansetron 4 Mg Rapdis Tablet SL Q6H PRN Nausea And Vomiting Oxytocin 10 unit 02/05/24 05:19 Oxytocin 10 Unit/Ml Vial IM 02/06/24 12:00 ONCE PRN PPH Senna 17.2 mg 02/05/24 20:00 Sennosides 8.6 Mg Tablet PO QHS PRN Constipation Simethicone 80 mg 02/05/24 12:09 Simethicone 80 Mg Tab.Chew PO QID PRN Abdominal Distention Temazepam 15 mg 02/05/24 12:09 Temazepam 15 Mg Capsule PO QHS PRN Sleep Witch Vira/Glycerin 1 pad 02/05/24 12:09 02/05/24 17:08 Glycerin/Witch Vira Pads TOPICAL 1 pad Q2H PRN Administration Pain Diet Category Date Time Status Regular Consistency Diet Diet 02/05/24 12:10 Active Consults Category Date Time Status Consult to Anesthesiology Routine Cons 02/05/24 Ordered Consult to Lathe Set Up Person Routine Cons 02/05/24 Ordered IV Insertion/Site Date of IV Line Insertion [ 02/05/24 Short PIV (<1.75 in) right Antecubital] Date of IV Line Insertion [ 02/05/24 Short PIV (<1.75 in) 18g left Hand] IV Insertion Time [Short PIV ( 08:18 <1.75 in) right Antecubital] IV Insertion Time [Short PIV ( 05:40 <1.75 in) 18g left Hand] Neurology Patient orientation (short person,place,time,situation list)
[2024-02-06 00:40] VITALS: TEMP 36.8
[2024-02-06 00:42] VITALS: BP 132/78; PULSE 73
[2024-02-06 03:40] VITALS: TEMP 36.5
[2024-02-06 03:59] VITALS: BP 137/70; PULSE 63
[2024-02-06 06:07] LABS: Basophils Percent Auto 0.2 % (0.2-2.0); Eosinophils Percent Auto 0.3 % (0.9-7.0); Hematocrit 34.3 % (36.0-48.0); Hemoglobin 11.3 g/dL (12.0-16.0); Immature Granulocytes Pct Auto 0.7 % (0.0-0.5); Lymphocytes Absolute Auto 1.8 10^3/uL (1.2-3.8); Lymphocytes Percent Auto 13.2 % (20.5-60.0); Mean Corpuscular HGB Conc 32.9 g/dL (29.9-35.2); Mean Corpuscular Hemoglobin 28.5 pg (26.7-34.0); Mean Corpuscular Volume 86.6 fL (81.0-99.0); Mean Platelet Volume 11.9 fL (9.5-13.5); Monocytes Absolute Auto 0.8 10^3/uL (0.3-0.8); Monocytes Percent Auto 5.7 % (1.7-12.0); Neutrophils Percent Auto 79.9 % (43.0-75.0); Platelet Count 178 10^3/uL (150-450); Red Blood Count 3.96 10^6/uL (4.20-5.40); Red Cell Distribution Width 13.2 % (11.0-15.0); White Blood Count 13.8 10^3/uL (4.0-11.0)
--- NOTE | 2024-02-06 07:44 | W.PC.ACHO ---
Registration Status: ADM IN Primary Language: Grenadian Preferred Language: Grenadian Report given to Charlotte CABALLERO. Active Medications Generic Name Dose Route Start Last Admin Trade Name Freq PRN Reason Stop Dose Admin Acetaminophen 650 mg 02/05/24 12:09 02/05/24 18:47 Acetaminophen 325 Mg Tablet PO 650 mg Q6H PRN Administration Mild Pain Al Hydroxide/Mg Hydroxide 2,400 mg 02/05/24 12:09 Magnesium Hydroxide 2,400 Mg/10 Ml Oral.Susp PO Q6H PRN Dyspepsia Benzocaine/Menthol 1 applic 02/05/24 12:09 02/05/24 17:07 Benzocaine/Menthol 85 Gram [place] Bottle TOPICAL 1 applic Q2H PRN Administration Pain Calcium Carbonate 500 mg 02/05/24 07:38 Calcium Carbonate 500 Mg (200mg Elemental) Tab Chew PO TID PRN heartburn Carboprost Tromethamine 250 mcg 02/05/24 05:19 Carboprost Tromethamine 250 Mcg/Ml 1 Ml Vial IM 02/06/24 12:00 Q15M PRN Bleeding Diphtheria/Pertussis/Tetanus Vacc 0.5 ml 02/07/24 09:00 Adacel Diph,Pertuss(Acell),Tet Vac/Pf 0.5 Ml Adult Syringe IM 02/07/24 09:01 .ONCE ONE Docusate Sodium 100 mg 02/06/24 09:00 Docusate Sodium 100 Mg Capsule PO BID DENAE Measles/Mumps/Rubella Vaccine Live 0.5 ml 02/07/24 09:00 Measles,Mumps,Rubella Vacc/Pf 0.5 Ml Vial SQ 02/07/24 09:01 .ONCE ONE Methylergonovine Maleate 0.2 mg 02/05/24 05:19 Methylergonovine Maleate 0.2 Mg/Ml Ampule IM 02/06/24 12:00 ONCE PRN Uterine Contractility/Contract Methylergonovine Maleate 0.2 mg 02/05/24 05:19 Methylergonovine Maleate 0.2 Mg Tablet PO 02/06/24 12:00 Q4H PRN Uterine Contractility/Contract Misoprostol 600 mcg 02/05/24 05:19 Misoprostol 100 Mcg Tablet PO 02/06/24 12:00 ONCE PRN Uterine Bleeding Misoprostol 800 mcg 02/05/24 05:19 Misoprostol 100 Mcg Tablet SL 02/06/24 12:00 ONCE PRN Uterine Bleeding Misoprostol 1,000 mcg 02/05/24 05:19 Misoprostol 100 Mcg Tablet WI 02/06/24 12:00 ONCE PRN Uterine Bleeding Ondansetron HCl 4 mg 02/05/24 05:19 02/05/24 08:19 Ondansetron Pf 4 Mg/2 Ml Vial IV 4 mg Q6H PRN Administration Nausea And Vomiting Ondansetron HCl 4 mg 02/05/24 05:19 Ondansetron 4 Mg Rapdis Tablet SL Q6H PRN Nausea And Vomiting Oxytocin 10 unit 02/05/24 05:19 Oxytocin 10 Unit/Ml Vial IM 02/06/24 12:00 ONCE PRN PPH Senna 17.2 mg 02/05/24 20:00 Sennosides 8.6 Mg Tablet PO QHS PRN Constipation Simethicone 80 mg 02/05/24 12:09 Simethicone 80 Mg Tab.Chew PO QID PRN Abdominal Distention Temazepam 15 mg 02/05/24 12:09 Temazepam 15 Mg Capsule PO QHS PRN Sleep Witch Vira/Glycerin 1 pad 02/05/24 12:09 02/05/24 17:08 Glycerin/Witch Vira Pads TOPICAL 1 pad Q2H PRN Administration Pain Diet Category Date Time Status Regular Consistency Diet Diet 02/05/24 12:10 Active IV Insertion/Site Date of IV Line Insertion [ 02/05/24 Short PIV (<1.75 in) right Antecubital] IV Insertion Time [Short PIV ( 08:18 <1.75 in) right Antecubital] Respiratory Oxygen Delivery Method Room Air Oxygen Delivery Method Room Air Oxygen Delivery Method Room Air Oxygen Delivery Method Room Air Oxygen Delivery Method Room Air Oxygen Delivery Method Room Air Renal Bladder Pattern Continent Bladder Pattern Continent Bladder Pattern Continent
[2024-02-06 08:25] VITALS: BP 149/83; PULSE 71; TEMP 36.7
[2024-02-06] MEDS: ACETAMINOPHEN 325 MG TABLET 650 MG PO (08:40)
[2024-02-06] MEDS: DOCUSATE SODIUM 100 MG CAPSULE PO (08:40)
--- NOTE | 2024-02-06 11:22 | SWNOTE1 ---
SW met with pt to discuss positive drug screen, positive for THC. Pt's sister, father of baby, nephew, and son were in room as well. Pt voiced everyone is doing well and baby is doing great. Pt is breast feeding and that is going well. Pt does have good support at home between families. Pt does have everything she needs at home for baby. She did use WIC when her 3 year old was born. They are not sure if they will contact [place] or not. They do have the phone number if needed. SW did speak with pt and father of baby in regards to positive THC drug screen. She voiced she did gummies mostly but sometime smoked it. She did it due to nause and to help with sleep. She does not have a medical marijuana card. She does plan on continuing after discharge. She voiced due to her anxiety she will continue. She has been to counseling in past and has those resources if needed. SW educated on not smoking in front of children. Pt and father of baby appropriate with baby. SW advised pt and father of baby that SW is mandated reported and due to [place] law CPS has to be notified. They voiced understanding. Report called to [facility] CPS. HIPAA form completed and sent to
--- NOTE | 2024-02-06 12:40 | P.DS_ITS ---
DS: Providers Provider Date of admission: 02/05/24 05:06 Primary care physician: ARIANE HEDRICK Admitting clinician: Jarek Lopez Consults: 02/05/24 Consult to Anesthesiology Routine Consulting Provider: Freddy Wolf Reason for consultation: epidural Consult to Body [employer] Routine Reason for consult:: Drug Abuse Other reason:: positive for THC on admission Attending physician on discharge: Keyona Ridley DS: Diagnosis Discharge Diagnosis (1) Normal vaginal delivery: Assessment and plan: REQUESTING DISCHARGE, NORMAL EXAM Plan DISCHARGE TEACHING DONE, NO SCRIPTS NEEDED, DISCHARGED TO HOME OB - DS: Summary Hospital Course Hospital Course: UNCOMPLICATED Time spent discussing smoking cessation with patient: 3 to 10 minutes Peripartum Data - Vaginal Delivery Laceration description: none Complications complications: none Delivery method: spontaneous vaginal delivery Gender: male Discharge plan: home Status at Discharge Cognitive/behavioral status at discharge: WNL Functional status at discharge: independent ambulation Overall status at discharge: patient is back to baseline Time Spent with Patient Time attestation: Total time spent providing and/or coordinating discharge services: Time spent: less than 30 minutes Exam Narrative Exam Narrative: VOICING NO COMPLAINTS Constitutional Vital Signs, click to edit/add: Last Vital Signs Temp 98.1 F 02/06/24 08:25 Pulse 71 02/06/24 08:25 Resp 14 02/06/24 08:25 BP 149/83 H 02/06/24 08:25 O2 Del Method Room Air 02/06/24 08:25 Documenting provider has reviewed patient's vital signs: yes Common normals: no apparent distress HENMT Common normals: normocephalic and head/scalp atraumatic Eye Pupil: PERRL and accommodation reflex normal Neck & C-Spine Common normals: full ROM and supple Respiratory Common normals: normal respiratory effort Cardio Common normals: regular rate and regular rhythm GI Common normals: Normal to inspection, nondistended, normoactive bowel sounds present and soft to palpation Common normals: no CVA tenderness Back & Pelvis Common normals: no thoracic nor lumbar tenderness Extremity Common normals: normal to inspection, full ROM and no calf tenderness Neuro Common normals: CN's II-XII intact bilaterally, moves all extremities, no focal motor deficits and no sensory deficits noted Psych Common normals: mental status grossly normal DS: Data Data Completed and Pending Labs on day of discharge: Labs from last 24 hours 02/06/24 06:00 WBC 13.8 H RBC 3.96 L Hgb 11.3 L Hct 34.3 L MCV 86.6 MCH 28.5 MCHC 32.9 RDW 13.2 Plt Count 178 MPV 11.9 Neut % (Auto) 79.9 H Lymph % (Auto) 13.2 L [place] % (Auto) 5.7 Eos % (Auto) 0.3 L Baso % (Auto) 0.2 Neut # (Auto) 11.0 H Lymph # (Auto) 1.8 [place] # (Auto) 0.8 Eos # (Auto) 0.0 Baso # (Auto) 0.0 Abs Immat Gran (auto) 0.10 H Imm/Tot Granulo (auto) 0.7 H Discharge Plan Discharge Disposition: Home, Self-Care Condition: Good Assessment: CONDITION GOOD, READY FOR DISCHARGE Health Concerns: NA Plan of Treatment: ROUTINE POST CARE Discharge Medications: Continued Humulin N NPH Insulin KwikPen 100 unit/mL (3 mL) insulin pen 5 unit SUBCUT Discontinued ondansetron 4 mg tablet,disintegrating 4 mg PO Q6H PRN (Reason: nausea and vomiting) Qty: 20 0RF promethazine 12.5 mg tablet 12.5 mg PO Q6H PRN (Reason: nausea and vomiting) 7 Days Qty: 30 0RF Rx Instructions: 3 doses during day; last dose no later than 4 hr before bedtime Activity: increase activity as tolerated Activity Detail: WALKING ONLY EXERCISE FOR 4 WEEKS, NO SWIMMING FOR 4 WEEKS, NO SEX FOR FOUR WEEKS Diet: regular diet Print Language: Kinyarwanda Patient Instructions: Vaginal Delivery (DC) Activity Restrictions/Additional Instructions: STATED ABOVE Forms: Portal Instructions Follow Up Appointments: SIS WEEKS POST EXAM WITH OB PROVIDER Discharge location: HOME
== END 2024-02-06 15:45 | disposition home or self-care (01) | DRG 560 ==
PROVIDERS: Admitting Provider Obstetrics & Gynecology; PCP Nurse Practitioner Family; Visit Provider Obstetrics & Gynecology
DX: O24.424 Gestational diabetes mellitus in childbirth, insulin controlled (principal); O99.324 Drug use complicating childbirth; F12.10 Cannabis abuse, uncomplicated; Z3A.39 39 weeks gestation of pregnancy; Z37.0 Single live birth; Z87.891 Personal history of nicotine dependence
CPT/HCPCS: 36415; 51702; 59050; 59410; 80307; 85025; 85027; 86850; 86900; 86901; 96365; 96366; 96375; J2405; J2795

== ENCOUNTER 2024-03-31 08:07 | Outpatient (OUT) | payer OTHER, SELFPAY ==
--- OUTSIDE RECORDS SUMMARY | 2024-03-31 08:11 | XMS_ITS | CCD ---
Author Organization [facility] Care Team Providers Care Hogshead Stripper Name Role Phone JOSE ., LITA Admitting Unavailable JOSE ., LITA Attending Unavailable RYLEY, ARIANE Primary Care Unavailable JOSE ., LITA Consulting Unavailable RYLEY, ARIANE Admitting Unavailable RYLEY, ARIANE Attending Unavailable RYLEY, ARIANE Primary Care Unavailable RYLEY, ARIANE Consulting Unavailable JESSICA ., DR TAMAYO Admitting Unavailable JESSICA ., DR TAMAYO Attending Unavailable YRLEY, ARIANE Primary Care Unavailable JESSICA ., DR [...] (1 source) Ibuprofen Drug Allergy 01-15-2016 [facility] Repository (2 sources) Ibuprofen Drug Allergy 07-10-2023 Unknown [facility] Healthcare Work Phone: Medications Current [...] GDLNon AGE GDLN ACOG TESTING Note . [facility] Comment on above: TESTS RESULT FLAG UN ITS REF RANGE LAB Clinician Provided Cytology Information Source.............Cervix Other.............. No. of containers..01 ThinPrep Vial Age Algo ACOG Bina... - 01 FLAG LEGEND: L-Low Normal,H-High Normal,LL-Alert Low,HH-Alert High <-Panic Low,>-Panic High,A-Abnormal,AA-Critical Abnormal Performed at: 01 =G [facility] [id number] Lali Holloway MD, IGP, RFX APTIMA HPV ASCU Note . [facility] Comment on above: TESTS RESULT FLAG U NITS REF RANGE LAB DIAGNOSIS: 02 NEGATIVE FOR INTRAEPITHELIAL LESION OR MALIGNANCY. Specimen adequacy: 02 Satisfactory for evaluation. No endocervical component is identified. An endocervical component is not commonly seen in the patient. Performed by: 02 Kieran Pickering, Senior Caregiver ([facility]) . 02 Note: Note 02 The [...] Low,>-Panic High,A-Abnormal,AA-Critical Abnormal Performed at: [address] [facility] [address] [place] [address] Lali Holloway MD, Performed at: = - [facility] [address], [place] [id number] Cementer Machine: Lali Holloway MD, Phone: [phone] Performed at: [facility] [address], [place] [id number] Cementer Machine: Lali Holloway MD, Phone: [phone] [facility] Urinalysis macro (dipstick) panel (U)on 09-22-2023 Bilirubin, UA Negative Negative - 4(70) +++ mg/dL [facility] Blood, UA Negative Negative - 50 Flash/mcL [facility] Clarity, UA Clear [facility] Color, UA Yellow [facility] Glucose, UA Negative Negative - 1999(110) ++++ mg/dL [facility] Interpretation and review of laboratory results Abnormal [facility] Ketones, UA Positive Negative - 160(16) ++++ mg/dL [facility] Leukocytes, UA Negative Negative - 500+++ Taylor/mcL [facility] Nitrite, UA Negative Negative - Positive [facility] pH, UA 5.5 5 - 9 [facility] Protein, UA Negative Negative - 1999(20) ++++ mg/dL [facility] Spec Grav, UA 1.020 1 - 1.03 [facility] Urobilinogen, UA 0.2 0.2 - 12 mg/dL Critical access hospital COMPLIANCE DRUG SCREENon PDF . Normal [facility] Comment on above: Performed By: #### U RCX #### [facility] [address] [place] [address] Dr. Tisha Carr Summary FINAL Normal [facility] Comment on above: Result Comment: = TOXASSURE [...] test is not intended to distinguish between hgjqh-[id number], the predominant form of THC in most herbal or marijuana-based products, and pqaob-1-hmygakwtmpsqrhnrsqrw. Methylphenidate PRESENT UNEXPECTED Ritalinic Acid PRESENT UNEXPECTED [...] = Performed By: #### U RCX #### [facility] [address] [place] [address] Dr. Tisha Carr URIC ACID RAND URINEon 10-31 Uric Acid, Urine 67.3 mg/dL Normal Not Estab. The [facility] Comment on above: Performed By: #### U RCX #### [facility] [address] [place] [address] Dr. Tisha Carr DRUG SCREEN RAPID (URINE)on 10-30-2022 AMP Negative Normal NEGATIVE [facility] Comment on above: Performed By: #### U RCX #### [facility] [address] [place] [address] Dr. Tisha Carr BAR Negative Normal NEGATIVE [facility] Comment on above: Performed By: #### U RCX #### [facility] [address] [place] [address] Dr. Tisha Carr BUP Negative Normal NEGATIVE [facility] Comment on above: Performed By: #### U RCX #### [facility] [address] [place] [address] Dr. Tisha Carr BZO Negative Normal NEGATIVE [facility] Comment on above: Performed By: #### U RCX #### [facility] [address] [place] [address] Dr. Tisha Carr SOCRATES Negative Normal NEGATIVE [facility] Comment on above: Performed By: #### U RCX #### [facility] [address] [place] [address] Dr. Tisha Carr CUT-OFFS SEE BELOW Normal [facility] Comment on above: Result Comment: AMP (Amphetamine): 500ng/mL, BAR (Barbituates): 200 ng/mL, BZO (Benzodiazepines): 150 ng/mL, BUP (Buprenorphine): 10 ng/mL, SOCRATES (Cocaine): 150 ng/mL, mAMP (Methamphetamine): 500 ng/mL, MTD (Methadone): 200 ng/mL, OPI (Opiates): 100 ng/mL, OXY (Oxycodone): 100 ng/mL, PCP (Phencyclidine): 25 ng/mL, PPX (Propoxyphene): 300 ng/mL, THC (Cannabinoids): 50 ng/mL, TCA (Trycyclic Antidepressants): 300 ng/mL Performed By: #### U RCX #### [facility] [address] [place] [address] Dr. Tisha Carr DRUG CUT HEADER DRUG CLASS TEST SYST EM CUT-OFF CONCENTRATIONS ARE FOLLOWS: Normal [facility] Comment on above: Performed By: #### U RCX #### [facility] [address] [place] [address] Dr. Tisha Carr mAMP Negative Normal NEGATIVE [facility] Comment on above: Performed By: #### U RCX #### [facility] [address] [place] [address] Dr. Tisha Carr MTD Negative Normal NEGATIVE [facility] Comment on above: Performed By: #### U RCX #### [facility] [address] [place] [address] Dr. Tisha Carr OPI Negative Normal NEGATIVE [facility] Comment on above: Performed By: #### U RCX #### [facility] [address] [place] [address] Dr. Tisha Carr OXY Negative Normal NEGATIVE [facility] Comment on above: Performed By: #### U RCX #### [facility] [address] [place] [address] Dr. Tisha Carr PCP Negative Normal NEGATIVE [facility] Comment on above: Performed By: #### U RCX #### [facility] [address] [place] [address] Dr. Tisha Carr PPX Negative Normal NEGATIVE [facility] Comment on above: Performed By: #### U RCX #### [facility] [address] [place] [address] Dr. Tisha Carr TCA Negative Normal NEGATIVE [facility] Comment on above: Performed By: #### U RCX #### [facility] [address] [place] [address] Dr. Tisha Carr THC Positive Abnormal NEGATIVE [facility] Comment on above: Performed By: #### U RCX #### [facility] [address] [place] [address] Dr. Tisha Carr CBC AUTO DIFFon 06-21-2022 BASO # 0.0 103/ul Normal 0.0-0.1 [facility] Comment on above: Performed By: #### U RCX #### [facility] [address] [place] [address] Dr. Tisha Carr Basophils/100 WBC (Bld) 0.2 % Normal 0.2-2.0 [facility] Comment on above: Performed By: #### U RCX #### [facility] [address] [place] [address] Dr. Tisha Carr EO # 0.0 103/ul Normal 0.0-0.7 [facility] Comment on above: Performed By: #### U RCX #### [facility] [address] [place] [address] Dr. Tisha Carr Eosinophils/100 WBC (Bld) 0.2 % Critically low 0.9-7.0 [facility] Comment on above: Performed By: #### U RCX #### [facility] [address] [place] [address] Dr. Tisha Carr Erythrocyte distribution width (RBC) [Ratio] 12.3 % Normal 11.0-15.0 [facility] Comment on above: Performed By: #### U RCX #### [facility] [address] [place] [address] Dr. Tisha Carr Hematocrit (Bld) [Volume fraction] 43.1 % Normal 36.0-48.0 [facility] Comment on above: Performed By: #### U RCX #### [facility] [address] [place] [address] Dr. Tisha Carr Hemoglobin (Bld) [Mass/Vol] 15.1 g/dL Normal 12.0-16.0 [facility] Comment on above: Performed By: #### U RCX #### [facility] [address] [place] [address] Dr. Tisha Carr IG # 0.06 10e3/ul Critically high 0.00-0.03 [facility] Comment on above: Performed By: #### U RCX #### [facility] [address] [address] [address] Tisha Carr IG % 0.5 % Normal 0.0-0.5 [facility] Comment on above: Performed By: #### U RCX #### [facility] [address] [address] [address] Tisha Carr LYMPH # 1.0 103/ul Critically low 1.2-3.8 [facility] Comment on above: Performed By: #### U RCX #### [facility] [address] [address] [address] Tisha Carr Lymphocytes/100 WBC (Bld) 8.2 % Critically low 20.5-60.0 [facility] Comment on above: Performed By: #### U RCX #### [facility] [address] [place] [address] Dr. Tisha Carr MANUAL DIFF REQ NO Normal [facility] Comment on above: Performed By: #### U RCX #### [facility] [address] [place] [address] Dr. Tisha Carr MCH (RBC) [Entitic mass] 30.3 pg Normal 26.7-34.0 [facility] Comment on above: Performed By: #### U RCX #### [facility] [address] [place] [address] Dr. Tisha Carr MCHC (RBC) [Mass/Vol] 35.0 g/dL Normal 29.9-35.2 [facility] Comment on above: Performed By: #### U RCX #### [facility] [address] [place] [address] Dr. Tisha Carr MCV (RBC) [Entitic vol] 86.4 fL Normal 81.0-99.0 [facility] Comment on above: Performed By: #### U RCX #### [facility] [address] [place] [address] Dr. Tisha Carr MONO # 0.8 103/ul Normal 0.3-0.8 [facility] Comment on above: Performed By: #### U RCX #### [facility] [address] [address] [address] Tisha Carr Monocytes/100 WBC (Bld) 6.0 % Normal 1.7-12.0 [facility] Comment on above: Performed By: #### U RCX #### [facility] [address] [address] [address] Tisha Carr NEUT # 10.8 103/ul Critically high 1.4-6.5 [facility] Comment on above: Performed By: #### U RCX #### [facility] [address] [address] [address] Tisha Carr Neutrophils/100 WBC (Bld) 84.9 % Critically high 43.0-75.0 [facility] Comment on above: Performed By: #### U RCX #### [facility] [address] [address] [address] Tisha Carr Platelet mean volume (Bld) [Entitic vol] 10.8 fL Normal 9.5-13.5 [facility] Comment on above: Performed By: #### U RCX #### [facility] [address] [address] [address] Tisha Carr PLT 237 103/ul Normal 150-450 [facility] Comment on above: Performed By: #### U RCX #### [facility] [address] [address] [address] Tisha Carr RBC 4.99 106/ul Normal 4.20-5.40 [facility] Comment on above: Performed By: #### U RCX #### [facility] [address] [address] [address] Tisha Carr WBC 12.7 103/ul Critically high 4.0-11.0 [facility] Comment on above: Performed By: #### U RCX #### [facility] [address] [address] [address] Tisha Carr CRPon 06-21-2022 CRP 10.0 mg/dL Critically high <=1.0 [facility] Comment on above: Performed By: #### C RP, CMP, LIPA #### [facility] [address] [address] [address] Tisha FRANCO URINE PROFILEon 2 Bilirubin Ql (U) SMALL Abnormal NEGATIVE [facility] Comment on above: Performed By: #### YULY BRYANT, PREGU #### [facility] [address] [address] [address] Tisha Carr Clarity (U) CLEAR Normal CLEAR [facility] Comment on above: Performed By: #### YULY BRYANT, PREGU #### [facility] [address] [address] [address] Tisha Carr Color (U) YELLOW Normal YELLOW [facility] Comment on above: Performed By: #### YULY BRYANT, PREGU #### [facility] [address] [place] [address] Dr. Tisha CONTIAHIsidra A micrscopic examina tion will be performed if indicated. Normal [facility] Comment on above: Performed By: #### YULY BRYANT, PREGU #### [facility] [address] [address] [address] Tisha Carr Glucose Ql (U) Negative Normal NEGATIVE [facility] Comment on above: Performed By: #### YULY BRYANT, PREGU #### [facility] [address] [address] [address] Tisha Carr Hemoglobin Ql (U) MODERATE Abnormal NEGATIVE [facility] Comment on above: Performed By: #### YULY BRYANT, PREGU #### [facility] [address] [address] [address] Tisha Carr Ketones Ql (U) 80 mg/dl Abnormal NEGATIVE [facility] Comment on above: Performed By: #### YULY BRYANT, PREGU #### [facility] [address] [address] [address] Tisha Carr LEUKOCYTES Negative Normal NEGATIVE [facility] Comment on above: Performed By: #### YULY BRYANT, PREGU #### [facility] [address] [address] [address] Tisha Carr Nitrite Ql (U) Negative Normal NEGATIVE [facility] Comment on above: Performed By: #### YULY BRYANT PREGU #### [facility] [address] [place] [address] Dr. Tisha Carr pH (U) 6.0 [pH] Normal 5-9 [facility] Comment on above: Performed By: #### YULY BRYANT PREGU #### [facility] [address] [place] [address] Dr. Tisha Carr SPEC GRAVITY 1.025 Normal 1.005-<=1.025 [facility] Comment on above: Performed By: #### UYLY BRYANT PREGU #### [facility] [address] [place] [address] Dr. Tisha Carr UA PROTEIN TRACE Normal NEGATIVE/ TRACE [facility] Comment on above: Performed By: #### YULY BRYANT PREGU #### [facility] [address] [place] [address] Dr. Tisha Carr UR MICRO IND INDICATED Normal [facility] Comment on above: Performed By: #### YULY BRYANT PREGU #### [facility] [address] [place] [address] Dr. Tisha Carr Urobilinogen Qn (U) 1.0 {Alma'U}/dL Normal 0.2 - 1.0 [facility] Comment on above: Performed By: #### YULY BRYANT PREGU #### [facility] [address] [place] [address] Dr. Tisha Carr LACTATE/LACTIC ACIDon 2021 Lactate [Moles/Vol] 1.0 mmol/L Normal 0.4-1.9 [facility] Comment on above: Performed By: #### U RCX #### [facility] [address] [place] [address] Dr. Tisha Carr LIPASEon 06-21-2022 Lipase [Catalytic activity/Vol] 41.0 U/L Critically low 73.0-393.0 [facility] Comment on above: Performed By: #### C RP, CMP, LIPA #### [facility] [address] [address] [address] Tisha Carr URon 06-21-2022 , QUAL Negative Normal NEGATIVE [facility] Comment on above: Performed By: #### E RUR, UMICRO, PREGU #### [facility] [address] [address] [address] Tisha Carr PROF 14(COMP METB)on 022 Albumin [Mass/Vol] 4.0 g/dL Normal 3.4-5.0 [facility] Comment on above: Performed By: #### C RP, CMP, LIPA #### [facility] [address] [place] [address] Dr. Tisha Carr Albumin/Globulin [Mass ratio] 1.0 {ratio} Normal [facility] Comment on above: Performed By: #### C RP, CMP, LIPA #### [facility] [address] [place] [address] Dr. Tisha Carr ALP [Catalytic activity/Vol] 74 U/L Normal 46-116 [facility] Comment on above: Performed By: #### C RP, CMP, LIPA #### [facility] [address] [place] [address] Dr. Tisha Carr ALT [Catalytic activity/Vol] 33 U/L Normal 14-59 [facility] Comment on above: Performed By: #### C RP, CMP, LIPA #### [facility] [address] [place] [address] Dr. Tisha Carr Anion gap [Moles/Vol] 15.8 mmol/L Normal [facility] Comment on above: Performed By: #### C RP, CMP, LIPA #### [facility] [address] [place] [address] Dr. Tisha Carr AST [Catalytic activity/Vol] 17 U/L Normal 15-37 [facility] Comment on above: Performed By: #### C RP, CMP, LIPA #### [facility] [address] [address] [address] Tisha Carr Bilirubin [Mass/Vol] 1.3 mg/dL Critically high 0.2-1.0 [facility] Comment on above: Performed By: #### C RP, CMP, LIPA #### [facility] [address] [place] [address] Dr. Tisha Carr Calcium [Mass/Vol] 9.2 mg/dL Normal 8.5-10.1 [facility] Comment on above: Performed By: #### C RP, CMP, LIPA #### [facility] [address] [address] [address] Tisha Carr Chloride [Moles/Vol] 102 mmol/L Normal 98-107 [facility] Comment on above: Performed By: #### C RP, CMP, LIPA #### [facility] [address] [place] [address] Dr. Tisha Carr CO2 [Moles/Vol] 22.7 mmol/L Normal 21.0-32.0 [facility] Comment on above: Performed By: #### C RP, CMP, LIPA #### [facility] [address] [place] [address] Dr. Tisha Carr Creatinine [Mass/Vol] 0.70 mg/dL Normal 0.55-1.02 [facility] Comment on above: Performed By: #### C RP, CMP, LIPA #### [facility] [address] [place] [address] Dr. Tisha Carr EGFR-AF BURKINAN >60 Normal >=60 [facility] Comment on above: Performed By: #### C RP, CMP, LIPA #### [facility] [address] [place] [address] Dr. Tisha Carr EGFR-NON AF BURKINAN >60 Normal >=60 [facility] Comment on above: Performed By: #### C RP, CMP, LIPA #### [facility] [address] [place] [address] Dr. Tisha Crar Globulin (S) [Mass/Vol] 4.2 g/dL Normal [facility] Comment on above: Performed By: #### C RP, CMP, LIPA #### [facility] [address] [place] [address] Dr. Tisha Carr Glucose [Mass/Vol] 93 mg/dL Normal 74-106 [facility] Comment on above: Performed By: #### C RP, CMP, LIPA #### [facility] [address] [place] [address] Dr. Tisha Carr Potassium [Moles/Vol] 3.5 mmol/L Normal 3.5-5.1 [facility] Comment on above: Performed By: #### C RP, CMP, LIPA #### [facility] [address] [place] [address] Dr. Tisha Carr Protein [Mass/Vol] 8.2 g/dL Normal 6.4-8.2 [facility] Comment on above: Performed By: #### C RP, CMP, LIPA #### [facility] [address] [place] [address] Dr. Tisha Carr Sodium [Moles/Vol] 137 mmol/L Normal 136-145 [facility] Comment on above: Performed By: #### C RP, CMP, LIPA #### [facility] [address] [place] [address] Dr. Tisha Carr Urea nitrogen [Mass/Vol] 16.0 mg/dL Normal 7.0-18.0 [facility] Comment on above: Performed By: #### C RP, CMP, LIPA #### [facility] [address] [place] [address] Dr. Tisha Carr Urea nitrogen/Creatinin e [Mass ratio] 22.9 mg/mg Normal [facility] Comment on above: Performed By: #### C RP, CMP, LIPA #### [facility] [address] [place] [address] Dr. Tisha Carr URINE MICROSCOPIC ONLYon BACTERIA TRACE Abnormal NONE SEEN [facility] Comment on above: Performed By: #### E RUR, UMMONARO, PREGU #### [facility] [address] [place] [address] Dr. Tisha Carr Bacteria identified Cx Nom (U) NOT INDICATED Normal [facility] Comment on above: Performed By: #### E RUR, UMICRO, PREGU #### [facility] [address] [place] [address] Dr. Tisha Carr CAST NONE SEEN Normal NONE SEEN [facility] Comment on above: Performed By: #### E RUR, UMICRO, PREGU #### [facility] [address] [place] [address] Dr. Tisha Carr Crystals LM Nom (Urine sed) NONE SEEN Normal NONE SEEN [facility] Comment on above: Performed By: #### E RUR, UMICRO, PREGU #### [facility] [address] [place] [address] Dr. Tisha Carr Epithelial cells LM Ql (Urine sed) MODERATE Abnormal NONE SEEN /RARE [facility] Comment on above: Performed By: #### E RUR, UMICRO, PREGU #### [facility] [address] [place] [address] Dr. Tisha Carr MUCOUS MODERATE Abnormal NONE SEEN [facility] Comment on above: Performed By: #### E RUR UMICRO, PREGU #### [facility] [address] [place] [address] Dr. Tisha Carr RBC 0-2 Normal 0-2 [facility] Comment on above: Performed By: #### E RUR UMICRO, PREGU #### [facility] [address] [place] [address] Dr. Tisha Carr WBC 0-2 Abnormal NONE SEEN [facility] Comment on above: Performed By: #### E RUR, UMICRO, PREGU #### [facility] [address] [place] [address] Dr. Tisha Carr PAP ACOG PANEL 2: 21 to 29on 04-11-2022 . . Normal [facility] Comment on above: Performed By: #### U RCX #### [facility] [address] [place] [address] Dr. Tisha Carr Age Gdln ACOG Testing 21-29 Normal [facility] Comment on above: Performed By: #### U RCX #### [facility] [address] [place] [address] Dr. Tisha Carr DIAGNOSIS: Comment Normal [facility] Comment on above: Result Comment: NEGA TIVE FOR INTRAEPITHELIAL LESION OR MALIGNANCY. FUNGAL ORGANISMS MORPHOLOGICALLY CONSISTENT WITH SHEREE SPECIES ARE PRESENT. Performed By: #### U RCX #### [facility] [address] [place] [address] Dr. Tisha Carr Methodology: Comment Normal [facility] Comment on above: Result Comment: This liquid based ThinPrep(R) pap test was screened with the use of an image guided system. Performed By: #### U RCX #### [facility] [address] [place] [address] Dr. Tisha Carr Note: Comment Normal [facility] Comment on above: Result Comment: The Pap smear is a screening test designed to aid in the detection of premalignant and malignant conditions of the uterine cervix. It is not a diagnostic procedure and should not be used as the sole means of detecting cervical cancer. Both false-positive and false-negative reports do occur. . Performed By: #### U RCX #### [facility] [address] [place] [address] Dr. Tisha Carr Performed by: Comment Normal [facility] Comment on above: Result Comment: Caleb Schaeffer, Senior Caregiver (ASCP) Performed By: #### U RCX #### [facility] [address] [place] [address] Dr. Tisha Carr Reflex Criteria: Comment Normal [facility] Comment on above: Result Comment: The HPV DNA reflex criteria were not met with this specimen result therefore, no HPV testing was performed. . Performed By: #### U RCX #### [facility] [address] [place] [address] Dr. Tisha Carr Specimen adequacy: Comment Normal [facility] Comment on above: Result Comment: Sati sfactory for evaluation. Endocervical and/or squamous metaplastic cells (endocervical component) are present. Performed By: #### U RCX #### [facility] [address] [place] [address] Dr. Tisha Carr CULTURE URINEon 01-08-2022 CULTURE [...] Trimethoprim/Sulfamethox azole <=20 S F Normal [facility] Comment on above: Performed By: #### U RCX #### [facility] [address] [place] [address] Dr. Tisha Carr Covid-19 PCR (CVDTB)on 12-23 SARS-CoV-2 (COVID-19) RNA OC+probe Ql (Unsp spec) Not detected Normal NOT DETECTED [facility] Comment on above: Result Comment: This test is not yet approved or cleared by the [place] FDA. When there are no FDA-approved or cleared tests available, and other criteria are met, FDA can make tests available under an emergency access mechanism called an Emergency Use Authorization (EUA). The EUA for this test is supported by the [employer] of Health and Human Service's (HHS's) declaration [...] SARS-CoV-2. Performed By: #### C VDTBH #### [facility] [address] [place] [address] Dr. Tisha Carr ER URINE PROFILEon 2 Bilirubin Ql (U) MODERATE Abnormal NEGATIVE [facility] Comment on above: Performed By: #### YULY BRYANT, PREGU #### [facility] [address] [address] [address] Tisha Carr Clarity (U) CLEAR Normal CLEAR [facility] Comment on above: Performed By: #### YULY BRYANT, PREGU #### [facility] [address] [address] [address] Tisha Carr Color (U) DK. YELLOW Normal YELLOW [facility] Comment on above: Performed By: #### YULY BRYANT, PREGU #### [facility] [address] [place] [address] Dr. Tisha QUEZADA A micrscopic examina tion will be performed if indicated. Normal [facility] Comment on above: Performed By: #### NHAN BRYANTRO, PREGU #### [facility] [address] [address] [address] Tihsa Carr Glucose Ql (U) Negative Normal NEGATIVE [facility] Comment on above: Performed By: #### YULY BRYANT, PREGU #### [facility] [address] [address] [address] Tisha Carr Hemoglobin Ql (U) Negative Normal NEGATIVE [facility] Comment on above: Performed By: #### YULY BRYANT, PREGU #### [facility] [address] [address] [address] Tisha Carr Ketones Ql (U) >=80 Abnormal NEGATIVE [facility] Comment on above: Performed By: #### YULY BRYANT, PREGU #### [facility] [address] [address] [address] Tisha Carr LEUKOCYTES TRACE Abnormal NEGATIVE [facility] Comment on above: Performed By: #### YULY BRYANT, PREGU #### [facility] [address] [address] [address] Tisha Carr Nitrite Ql (U) Negative Normal NEGATIVE [facility] Comment on above: Performed By: #### YULY BRYANT PREGU #### [facility] [address] [place] [address] Dr. Tisha Carr pH (U) 6.0 [pH] Normal 5-9 [facility] Comment on above: Performed By: #### YULY BRYANT PREGU #### [facility] [address] [place] [address] Dr. Tisha Carr Protein (U) [Mass/Vol] 100 mg/dL Abnormal NEGATIVE/ TRACE [facility] Comment on above: Performed By: #### YULY BRYANT PREGU #### [facility] [address] [place] [address] Dr. Tisha Carr SPEC GRAVITY 1.025 Normal 1.005-<=1.025 [facility] Comment on above: Performed By: #### YULY BRYANT PREGU #### [facility] [address] [place] [address] Dr. Tisha Carr UR MICRO IND INDICATED Normal [facility] Comment on above: Performed By: #### YULY BRYANT PREGU #### [facility] [address] [place] [address] Dr. Tisha Carr Urobilinogen Qn (U) 1.0 {Alma'U}/dL Normal 0.2 - 1.0 [facility] Comment on above: Performed By: #### YULY BRYANT PREGU #### [facility] [address] [place] [address] Dr. Tisha Carr INFLUENZA A AND B AGon 01-06 INFLUANEGH SEE BELOW Normal [facility] Comment on above: Result Comment: Nega tive for Flu A protein angiten. Infection due to Flu A cannot be ruled out. Flu A angiten in the sample may be below the detection limit of the test. Performed By: #### U RCX #### [facility] [address] [place] [address] Dr. Tisha Carr INFLUBNEGH SEE BELOW Normal [facility] Comment on above: Result Comment: Nega tive for Flu B protein antigen. Infection due to Flu B cannot be ruled out. Flu B antigen in the sample may be below the detection limit of the test. Performed By: #### U RCX #### [facility] [address] [place] [address] Dr. Tisha Carr INFLUENZA A AG Negative Normal NEGATIVE SEE COMMENT [facility] Comment on above: Performed By: #### U RCX #### [facility] [address] [place] [address] Dr. Tisha Carr INFLUENZA B AG Negative Normal NEGATIVE SEE COMMENT [facility] Comment on above: Performed By: #### U RCX #### [facility] [address] [place] [address] Dr. Tisha Carr INTERNAL CONTROLS Within Normal Limits Normal Wi thin Normal Limits [facility] Comment on above: Performed By: #### U RCX #### [facility] [address] [place] [address] Dr. Tisha Carr URon 01-06-2022 , QUAL Negative Normal NEGATIVE [facility] Comment on above: Performed By: #### E RUR, UMICRO, PREGU #### [facility] [address] [place] [address] Dr. Tisha Carr URINE MICROSCOPIC ONLYon BACTERIA SMALL Abnormal NONE SEEN [facility] Comment on above: Performed By: #### U RCX #### [facility] [address] [place] [address] Dr. Tisha Carr Bacteria identified Cx Nom (U) INDICATED Normal [facility] Comment on above: Performed By: #### U RCX #### [facility] [address] [place] [address] Dr. Tisha Carr CAST NONE SEEN Normal NONE SEEN [facility] Comment on above: Performed By: #### U RCX #### [facility] [address] [place] [address] Dr. Tisha Carr Crystals LM Nom (Urine sed) NONE SEEN Normal NONE SEEN [facility] Comment on above: Performed By: #### U RCX #### [facility] [address] [address] [address] Tisha Carr Epithelial cells LM Ql (Urine sed) MANY Abnormal NONE SEEN /RARE [facility] Comment on above: Performed By: #### U RCX #### [facility] [address] [address] [address] Tisha Carr MUCOUS LARGE Abnormal NONE SEEN [facility] Comment on above: Performed By: #### U RCX #### [facility] [address] [address] [address] Tisha Carr RBC NONE SEEN Abnormal 0-2 [facility] Comment on above: Performed By: #### U RCX #### [facility] [address] [address] [address] Tisha Carr WBC 5-10 Abnormal NONE SEEN [facility] Comment on above: Performed By: #### U RCX #### [facility] [address] [address] [address] Tisha Carr Vital Signs Date Time Vital Sign Value Performing Clinician Faci lity 09-22-2023 16:01-0500 Body weight 89.09 kg Belkis Jessica DO Work Phone: [facility] 09-22-2023 16:01-0500 Diastolic blood pressure 70 mm[Hg] Belkis Jessica DO Work Phone: [facility] 09-22-2023 16:01-0500 Systolic blood pressure 120 mm[Hg] Belkis Jessica DO Work Phone: [facility] Encounters Encounter Date Encounter Type Care Provider Facility Start: 02-02-2024 End: 02-02-2024 ambulatory BELKIS JESSICA Not Available Start: 01-27-2024 End: 01-27-2024 ambulatory BELKIS JESSICA Not Available Start: 01-12-2024 End: 01-12-2024 ambulatory BELKIS JESSICA Not Available Start: 2024 End: 2024 ambulatory BELKIS JESSICA Not Available Start: 12-22-2023 End: 12-22-2023 ambulatory BELKIS JESSICA Not Available Start: 12-02-2023 End: 12-02-2023 ambulatory BELKIS WUO Not Available Start: 11-17-2023 End: 11-17-2023 ambulatory BELKIS WUO Not Available Start: 10-20-2023 End: 10-20-2023 ambulatory [...] Available Start: 09-22-2023 Clinisync Result Encounter Belkis Wuo [...] PM EST Routine [facility] [address] [place] [address] Belkis Lopez, DO [address] [place] [address] [facility] Start: 09-22-2023 End: 09-22-2024 Alpha fetoprotein, maternal Alpha fetoprotein, maternal Lab Routine Second trimester Need for maternal serum alpha-protein (MSAFP) screening Expected: 09/22/2023 (Approximate), Expires: 09/22/2024 [facility] Comment on above: Expected: 09/22/2023 (Approximate), Expires: 09/22/2024 Start: 09-22-2023 End: 09-22-2024 US for US OB ANATOMY SINGLE W US OB CERVICAL LENGTH Imaging Routine Screening, , for anatomic survey Expected: 09/22/2023 (Approximate), Expires: 09/22/2024 [facility] Comment on above: Expected: 09/22/2023 (Approximate), Expires: 09/22/2024 CHLAMYDIA TRACHOMATI S (GENITO/STI) CHLAMYDIA TRACHOMATIS (GENITO/STI) Lab Routine Exposure to STD Ordered: 09/22/2023 [facility] Comment on above: Ordered: 09/22/2023 Cytology Cervical or vaginal smear or scraping study Pap Smear Pathology and Cytology Routine Well woman exam with routine gynecological exam Ordered: 09/22/2023 [facility] Comment on above: Ordered: 09/22/2023 Neisseria gonorrhoea e DNA [Presence] in Unspecified specimen by OC with probe detection Neisseria gonorrhea DNA probe, direct Lab Routine Exposure to STD Ordered: 09/22/2023 [facility] Comment on above: Ordered: 09/22/2023 SURESWAB(R) ADVANCED VAGINITIS PLUS, TMA SURESWAB(R) ADVANCED VAGINITIS PLUS, TMA Pathology and Cytology Routine Exposure to STD Ordered: 09/22/2023 [facility] Work Phone: Comment on above: Ordered: 09/22/2023 Payers Date Payer Category Payer Medicaid [employer] [place] [employer] [id number] 2021-Present [address] [place] [address] [id number] 2000 Unknown [id number] [id number]3 2000 Unknown [id number] 2.16.840.1.369457.3.579.2.593 2000 Unknown [id number] 2.16.840.1.855664.3.579.2.593 2000 Unknown [id number] 2.16.840.1.405775.3.579.2.593 2000 Unknown [id number] 2.16.840.1.695152.3.579.2.9 2000 Unknown [id number] 2.16.840.1.369595.3.579.2.9 2000 Unknown [id number] 2.16.840.1.438001.3.579.2.1258 2000 Unknown [id number] 2.16.840.1.529412.3.579.2.1259 2000 Unknown [id number] 2.16.840.1.940156.3.579.2.1258 2000 Unknown [id number] 2.16.840.1.393281.3.579.2.9 2000 Unknown [id number] 2.16.840.1.124950.3.579.2.1258 2000 Unknown [id number] 2.16.840.1.142788.3.579.2.1259 2000 Unknown [id number] 2.16.840.1.190993.3.579.2.1259 2000 Unknown [id number] 2.16.840.1.148068.3.579.2.1259 2000 Unknown [id number] 2.16.840.1.571190.3.579.2.9 2000 Unknown [id number] 2.16.840.1.059928.3.579.2.1259 1959 Unknown [id number] Social History Date Type Detail Facility Tobacco smoking stat [facility] Tobacco smoking consumption unknown [facility] [...] Problems Past Medical History: Diagnosis Date Asthma ([facility]) No family history on file. [...] nursing note reviewed. Exam conducted with a service order taker present. Vitals: There is no height or [...] chavira DATE CREATED AUTHOR AUTHOR'S ORGANIZ ATION 02/02/2024 [facility] EPIC Reason for Visit (unrecogniz [...] BE BASED ON THE PRIMARY CLINICAL RECORDS. [facility] [facility]. provides no warranty or guarantee of the accuracy or completeness of information in this document.
== END 2024-03-31 12:05 | disposition home or self-care (01) ==
LOC: FBCO 08:08
PROVIDERS: PCP Nurse Practitioner Family; Visit Provider Obstetrics & Gynecology
DX: Z39.1 Encounter for care and examination of lactating mother (principal)

== ENCOUNTER 2024-04-15 07:48 | Outpatient (OUT) | payer OTHER, SELFPAY ==
--- OUTSIDE RECORDS SUMMARY | 2024-04-15 07:51 | XMS_ITS | CCD ---
Author Organization [facility] Care Team Providers Care Integration Software Engineer Name Role Phone JOSE ., LITA Admitting Unavailable JOSE ., LITA Attending Unavailable RYLEY, ARIANE Primary Care Unavailable JOSE ., LITA Consulting Unavailable RYLEY, ARIANE Admitting Unavailable RYLEY, ARIAEN Attending Unavailable RYLEY, ARIANE Primary Care Unavailable RYLEY, ARIANE Consulting Unavailable JESSICA ., DR TAMAYO Admitting Unavailable JESSICA ., DR TAMAYO Attending Unavailable RYLEY, ARIANE Primary Care Unavailable JESSICA ., DR TAMAYO Consulting Unavailable RYLEY, ARIANE Primary Care Unavailable PAY ., DR NELSON Admitting Unavailable PAY ., DR NESLON Attending Unavailable PAY ., DR NELSON Consulting [...] (1 source) Ibuprofen Drug Allergy 01-15-2016 The [facility] (2 sources) Ibuprofen Drug Allergy 07-10-2023 [...] AGE GDLN ACOG TESTING Note . [facility] Comment on above: TESTS RESULT FLAG UN ITS REF RANGE LAB Clinician Provided Cytology Information Source.............Cervix Other.............. No. of containers..01 ThinPrep Vial Age Algo ACOG Bina... - 01 FLAG LEGEND: L-Low Normal,H-High Normal,LL-Alert Low,HH-Alert High <-Panic Low,>-Panic High,A-Abnormal,AA-Critical Abnormal Performed at: 01 =G [facility] [id number] Lali Holloway MD, IGP, RFX APTIMA HPV ASCU Note . [facility] Comment on above: TESTS RESULT FLAG UN ITS REF RANGE LAB DIAGNOSIS: 02 NEGATIVE FOR INTRAEPITHELIAL LESION OR MALIGNANCY. Specimen adequacy: 02 Satisfactory for evaluation. No endocervical component is identified. An endocervical component is not commonly seen in the patient. Performed by: 02 Kieran Pickering, Blocklayer ([facility]) . 02 Note: Note 02 [...] Low,>-Panic High,A-Abnormal,AA-Critical Abnormal Performed at: [address] [facility] [address], [place] [address] Lali Holloway MD, Performed at: =G - [facility] [address] [id number] Outbound Sales Representative: Lali Holloway MD, Phone: [phone] Performed at: - [facility] [address], [place] [id number] Outbound Sales Representative: Lali Holloway MD, Phone: [phone] [facility] Urinalysis macro (dipstick) panel (U)on 09-22-2023 Bilirubin, UA Negative Negative - 4(70) +++ mg/dL [facility] Blood, UA Negative Negative - 50 Flash/mcL [facility] Clarity, UA Clear [facility] Color, UA Yellow [employer] [facility] Glucose, UA Negative Negative - 1999(110) ++++ mg/dL [facility] Interpretation and review of laboratory results Abnormal [facility] Ketones, UA Positive Negative - 160(16) ++++ mg/dL [facility] Leukocytes, UA Negative Negative - 500+++ Taylor/mcL [facility] Nitrite, UA Negative Negative - Positive [facility] pH, UA 5.5 5 - 9 [facility] Protein, UA Negative Negative - 1999(20) ++++ mg/dL [facility] Spec Grav, UA 1.020 1 - 1.03 [employer] [facility] Urobilinogen, UA 0.2 0.2 - 12 mg/dL [facility] COMPLIANCE DRUG SCREENon PDF . Normal [facility] Comment on above: Performed By: #### U RCX #### [facility] [address] [address] [address] Tisha Carr Summary FINAL Normal [facility] Comment on above: Result Comment: = TOXASSURE [...] test is not intended to distinguish between [id number], the predominant form of THC in most herbal or marijuana-based products, and yxkje-0-hlmozzgkalazwqrgmuwk. Methylphenidate PRESENT UNEXPECTED Ritalinic Acid PRESENT UNEXPECTED [...] = Performed By: #### U RCX #### [facility] [address] [place] [address] Dr. Tisha Carr URIC ACID RAND URINEon 10-31 Uric Acid, Urine 67.3 mg/dL Normal Not Estab. [facility] Comment on above: Performed By: #### U RCX #### [facility] [address] [place] [address] Dr. Tisha Carr DRUG SCREEN RAPID (URINE)on 10-30-2022 AMP Negative Normal NEGATIVE [facility] Comment on above: Performed By: #### U RCX #### [facility] [address] [place] [address] Dr. Tisha Carr BAR Negative Normal NEGATIVE [facility] Comment on above: Performed By: #### U RCX #### [facility] [address] [place] [address] Dr. Tisha Carr BUP Negative Normal NEGATIVE [facility] Comment on above: Performed By: #### U RCX #### [facility] [address] [place] [address] Dr. Tsiha Carr BZO Negative Normal NEGATIVE [facility] Comment on above: Performed By: #### U RCX #### [facility] [address] [place] [address] Dr. Tisha Carr SOCRATES Negative Normal NEGATIVE [facility] Comment on above: Performed By: #### U RCX #### [facility] [address] [place] [address] Dr. Tisha Carr CUT-OFFS SEE BELOW Normal [facility] Comment on above: Result Comment: AMP (Amphetamine): 500ng/mL, BAR (Barbituates): 200 ng/mL, BZO (Benzodiazepines): 150 ng/mL, BUP (Buprenorphine): 10 ng/mL, SOCRATES (Cocaine): 150 ng/mL, mAMP (Methamphetamine): 500 ng/mL, MTD (Methadone): 200 ng/mL, OPI (Opiates): 100 ng/mL, OXY (Oxycodone): 100 ng/mL, PCP (Phencyclidine): 25 ng/mL, PPX (Propoxyphene): 300 ng/mL, THC (Cannabinoids): 50 ng/mL, TCA (Trycyclic Antidepressants): 300 ng/mL Performed By: #### U RCX #### [facility] [address] [place] [address] Dr. Tisha Carr DRUG CUT HEADER DRUG CLASS TEST SYST EM CUT-OFF CONCENTRATIONS ARE FOLLOWS: Normal [facility] Comment on above: Performed By: #### U RCX #### [facility] [address] [place] [address] Dr. Tisha Carr mAMP Negative Normal NEGATIVE [facility] Comment on above: Performed By: #### U RCX #### [facility] [address] [place] [address] Dr. Tisha Carr MTD Negative Normal NEGATIVE [facility] Comment on above: Performed By: #### U RCX #### [facility] [address] [place] [address] Dr. Tisha Carr OPI Negative Normal NEGATIVE [facility] Comment on above: Performed By: #### U RCX #### [facility] [address] [place] [address] Dr. Tisha Carr OXY Negative Normal NEGATIVE [facility] Comment on above: Performed By: #### U RCX #### [facility] [address] [place] [address] Dr. Tisha Carr PCP Negative Normal NEGATIVE [facility] Comment on above: Performed By: #### U RCX #### [facility] [address] [place] [address] Dr. Tisha Carr PPX Negative Normal NEGATIVE [facility] Comment on above: Performed By: #### U RCX #### [facility] [address] [place] [address] Dr. Tisha Carr TCA Negative Normal NEGATIVE [facility] Comment on above: Performed By: #### U RCX #### [facility] [address] [place] [address] Dr. Tisha Carr THC Positive Abnormal NEGATIVE [facility] Comment on above: Performed By: #### U RCX #### [facility] [address] [place] [address] Dr. Tisha Carr CBC AUTO DIFFon 06-21-2022 BASO # 0.0 103/ul Normal 0.0-0.1 [facility] Comment on above: Performed By: #### U RCX #### [facility] [address] [place] [address] Dr. Tisha Carr Basophils/100 WBC (Bld) 0.2 % Normal 0.2-2.0 [facility] Comment on above: Performed By: #### U RCX #### [facility] [address] [place] [address] Dr. Tisha Carr EO # 0.0 103/ul Normal 0.0-0.7 [facility] Comment on above: Performed By: #### U RCX #### [facility] [address] [place] [address] Dr. Tisha Carr Eosinophils/100 WBC (Bld) 0.2 % Critically low 0.9-7.0 [facility] Comment on above: Performed By: #### U RCX #### [facility] [address] [place] [address] Dr. Tisha Carr Erythrocyte distribution width (RBC) [Ratio] 12.3 % Normal 11.0-15.0 [facility] Comment on above: Performed By: #### U RCX #### [facility] [address] [place] [address] Dr. Tisha Carr Hematocrit (Bld) [Volume fraction] 43.1 % Normal 36.0-48.0 [facility] Comment on above: Performed By: #### U RCX #### [facility] [address] [place] [address] Dr. Tisha Carr Hemoglobin (Bld) [Mass/Vol] 15.1 g/dL Normal 12.0-16.0 [facility] Comment on above: Performed By: #### U RCX #### [facility] [address] [place] [address] Dr. Tisha Carr IG # 0.06 10e3/ul Critically high 0.00-0.[address] [facility] Comment on above: Performed By: #### U RCX #### [facility] [address] [address] [address] Tisha Carr IG % 0.5 % Normal 0.0-0.5 [facility] Comment on above: Performed By: #### U RCX #### [facility] [address] [address] [address] Tisha Carr LYMPH # 1.0 103/ul Critically low 1.2-3.8 [facility] Comment on above: Performed By: #### U RCX #### [facility] [address] [address] [address] Tisha Carr Lymphocytes/100 WBC (Bld) 8.2 % Critically low 20.5-60.0 [facility] Comment on above: Performed By: #### U RCX #### [facility] [address] [place] [address] Dr. Tisha Carr MANUAL DIFF REQ NO Normal [facility] Comment on above: Performed By: #### U RCX #### [facility] [address] [place] [address] Dr. Tisha Carr MCH (RBC) [Entitic mass] 30.3 pg Normal 26.7-34.0 [facility] Comment on above: Performed By: #### U RCX #### [facility] [address] [place] [address] Dr. Tisha Carr MCHC (RBC) [Mass/Vol] 35.0 g/dL Normal 29.9-35.2 [facility] Comment on above: Performed By: #### U RCX #### [facility] [address] [place] [address] Dr. Tisha Carr MCV (RBC) [Entitic vol] 86.4 fL Normal 81.0-99.0 [facility] Comment on above: Performed By: #### U RCX #### [facility] [address] [place] [address] Dr. Tisha Carr MONO # 0.8 103/ul Normal 0.3-0.8 [facility] Comment on above: Performed By: #### U RCX #### [facility] [address] [address] [address] Tisha Carr Monocytes/100 WBC (Bld) 6.0 % Normal 1.7-12.0 [facility] Comment on above: Performed By: #### U RCX #### [facility] [address] [address] [address] Tisha Carr NEUT # 10.8 103/ul Critically high 1.4-6.5 [facility] Comment on above: Performed By: #### U RCX #### [facility] [address] [address] [address] Tisha Carr Neutrophils/100 WBC (Bld) 84.9 % Critically high 43.0-75.0 [facility] Comment on above: Performed By: #### U RCX #### [facility] [address] [address] [address] Tisha Carr Platelet mean volume (Bld) [Entitic vol] 10.8 fL Normal 9.5-13.5 [facility] Comment on above: Performed By: #### U RCX #### [facility] [address] [address] [address] Tisha Carr PLT 237 103/ul Normal 150-450 [facility] Comment on above: Performed By: #### U RCX #### [facility] [address] [address] [address] Tisha Crar RBC 4.99 106/ul Normal 4.20-5.40 [facility] Comment on above: Performed By: #### U RCX #### [facility] [address] [address] [address] Tisha Carr WBC 12.7 103/ul Critically high 4.0-11.0 [facility] Comment on above: Performed By: #### U RCX #### [facility] [address] [address] [address] Tisha Carr CRPon 06-21-2022 CRP 10.0 mg/dL Critically high <=1.0 [facility] Comment on above: Performed By: #### C RP, CMP, LIPA #### [facility] [address] [address] [address] Tisha Carr ER URINE PROFILEon 2 Bilirubin Ql (U) SMALL Abnormal NEGATIVE [facility] Comment on above: Performed By: #### YULY BRYANT, PREGU #### [facility] [address] [address] [address] Tisha Carr Clarity (U) CLEAR Normal CLEAR [facility] Comment on above: Performed By: #### YULY BRYANT, PREGU #### [facility] [address] [address] [address] Tisha Carr Color (U) YELLOW Normal YELLOW [facility] Comment on above: Performed By: #### YULY BRYANT, PREGU #### [facility] [address] [place] [address] Dr. Tisha CONTIAHIsidra A micrscopic examina tion will be performed if indicated. Normal [facility] Comment on above: Performed By: #### YULY BRYANT, PREGU #### [facility] [address] [address] [address] Tisha Carr Glucose Ql (U) Negative Normal NEGATIVE [facility] Comment on above: Performed By: #### YULY BRYANT, PREGU #### [facility] [address] [address] [address] Tisha Carr Hemoglobin Ql (U) MODERATE Abnormal NEGATIVE [facility] Comment on above: Performed By: #### YULY BRYANT, PREGU #### [facility] [address] [address] [address] Tisha Carr Ketones Ql (U) 80 mg/dl Abnormal NEGATIVE [facility] Comment on above: Performed By: #### YULY BRYANT, PREGU #### [facility] [address] [address] [address] Tisha Carr LEUKOCYTES Negative Normal NEGATIVE [facility] Comment on above: Performed By: #### YULY BRYANT, PREGU #### [facility] [address] [address] [address] Tisha Carr Nitrite Ql (U) Negative Normal NEGATIVE [facility] Comment on above: Performed By: #### YULY BRYANT PREGU #### [facility] [address] [address] [address] Tisha Carr pH (U) 6.0 [pH] Normal 5-9 [facility] Comment on above: Performed By: #### YLUY BRYANT PREGU #### [facility] [address] [address] [address] Tisha Carr SPEC GRAVITY 1.025 Normal 1.005-<=1.025 [facility] Comment on above: Performed By: #### YULY BRYANT PREGU #### [facility] [address] [place] [address] Dr. Tisha Carr UA PROTEIN TRACE Normal NEGATIVE/ TRACE [facility] Comment on above: Performed By: #### YULY BRYANT PREGU #### [facility] [address] [place] [address] Dr. Tisha Carr UR MICRO IND INDICATED Normal [facility] Comment on above: Performed By: #### YULY BRYANT PREGU #### [facility] [address] [place] [address] Dr. Tisha Carr Urobilinogen Qn (U) 1.0 {Alma'U}/dL Normal 0.2 - 1.0 [facility] Comment on above: Performed By: #### YULY BRYANT PREGU #### [facility] [address] [place] [address] Dr. Tisha Carr LACTATE/LACTIC ACIDon 2021 Lactate [Moles/Vol] 1.0 mmol/L Normal 0.4-1.9 [facility] Comment on above: Performed By: #### U RCX #### [facility] [address] [place] [address] Dr. Tisha Carr LIPASEon 06-21-2022 Lipase [Catalytic activity/Vol] 41.0 U/L Critically low 73.0-393.0 [facility] Comment on above: Performed By: #### C RP, CMP, LIPA #### [facility] [address] [address] [address] Tisha Carr URon 06-21-2022 , QUAL Negative Normal NEGATIVE [facility] Comment on above: Performed By: #### E RUR, UMICRO, PREGU #### [facility] [address] [address] [address] Tisha Carr PROF 14(COMP METB)on 022 Albumin [Mass/Vol] 4.0 g/dL Normal 3.4-5.0 [place] Comment on above: Performed By: #### C RP, CMP, LIPA #### [facility] [address] [place] [address] Dr. Tisha Carr Albumin/Globulin [Mass ratio] 1.0 {ratio} Normal [facility] Comment on above: Performed By: #### C RP, CMP, LIPA #### [facility] [address] [place] [address] Dr. Tisha Carr ALP [Catalytic activity/Vol] 74 U/L Normal 46-116 [facility] Comment on above: Performed By: #### C RP, CMP, LIPA #### [facility] [address] [place] [address] Dr. Tisha Carr ALT [Catalytic activity/Vol] 33 U/L Normal 14-59 [facility] Comment on above: Performed By: #### C RP, CMP, LIPA #### [facility] [address] [place] [address] Dr. Tisha Carr Anion gap [Moles/Vol] 15.8 mmol/L Normal [facility] Comment on above: Performed By: #### C RP, CMP, LIPA #### [facility] [address] [place] [address] Dr. Tisha Carr AST [Catalytic activity/Vol] 17 U/L Normal 15-37 [facility] Comment on above: Performed By: #### C RP, CMP, LIPA #### [facility] [address] [address] [address] Tisha Carr Bilirubin [Mass/Vol] 1.3 mg/dL Critically high 0.2-1.0 [facility] Comment on above: Performed By: #### C RP, CMP, LIPA #### [facility] [address] [place] [address] Dr. Tisha Carr Calcium [Mass/Vol] 9.2 mg/dL Normal 8.5-10.1 [place] Comment on above: Performed By: #### C RP, CMP, LIPA #### [facility] [address] [address] [address] Tisha Carr Chloride [Moles/Vol] 102 mmol/L Normal 98-107 [facility] Comment on above: Performed By: #### C RP, CMP, LIPA #### [facility] [address] [place] [address] Dr. Tisha Carr CO2 [Moles/Vol] 22.7 mmol/L Normal 21.0-32.0 [facility] Comment on above: Performed By: #### C RP, CMP, LIPA #### [facility] [address] [place] [address] Dr. Tisha Carr Creatinine [Mass/Vol] 0.70 mg/dL Normal 0.55-1.02 [facility] Comment on above: Performed By: #### C RP, CMP, LIPA #### [facility] [address] [place] [address] Dr. Tisha Carr EGFR-AF IRANIAN >60 Normal >=60 [facility] Comment on above: Performed By: #### C RP, CMP, LIPA #### [facility] [address] [place] [address] Dr. Tisha Carr EGFR-NON AF IRANIAN >60 Normal >=60 [facility] Comment on above: Performed By: #### C RP, CMP, LIPA #### [facility] [address] [place] [address] Dr. Tisha Carr Globulin (S) [Mass/Vol] 4.2 g/dL Normal [facility] Comment on above: Performed By: #### C RP, CMP, LIPA #### [facility] [address] [place] [address] Dr. Tisha Carr Glucose [Mass/Vol] 93 mg/dL Normal 74-106 [place] Comment on above: Performed By: #### C RP, CMP, LIPA #### [facility] [address] [place] [address] Dr. Tisha Carr Potassium [Moles/Vol] 3.5 mmol/L Normal 3.5-5.1 [facility] Comment on above: Performed By: #### C RP, CMP, LIPA #### [facility] [address] [place] [address] Dr. Tisha Carr Protein [Mass/Vol] 8.2 g/dL Normal 6.4-8.2 [facility] Comment on above: Performed By: #### C RP, CMP, LIPA #### [facility] [address] [place] [address] Dr. Tisha Carr Sodium [Moles/Vol] 137 mmol/L Normal 136-145 [facility] Comment on above: Performed By: #### C RP, CMP, LIPA #### [facility] [address] [place] [address] Dr. Tisha Carr Urea nitrogen [Mass/Vol] 16.0 mg/dL Normal 7.0-18.0 [facility] Comment on above: Performed By: #### C RP, CMP, LIPA #### [facility] [address] [place] [address] Dr. Tisha Carr Urea nitrogen/Creatinin e [Mass ratio] 22.9 mg/mg Normal [facility] Comment on above: Performed By: #### C RP, CMP, LIPA #### [facility] [address] [place] [address] Dr. Tisha Carr URINE MICROSCOPIC ONLYon BACTERIA TRACE Abnormal NONE SEEN The [facility] Comment on above: Performed By: #### E RUR, UMICRO, PREGU #### [facility] [address] [place] [address] Dr. Tisha Carr Bacteria identified Cx Nom (U) NOT INDICATED Normal [facility] Comment on above: Performed By: #### E RUR, UMICRO, PREGU #### [facility] [address] [place] [address] Dr. Tisha Carr CAST NONE SEEN Normal NONE SEEN The [facility] Comment on above: Performed By: #### E RUR, UMICRO, PREGU #### [facility] [address] [place] [address] Dr. Tisha Carr Crystals LM Nom (Urine sed) NONE SEEN Normal NONE SEEN [facility] Comment on above: Performed By: #### E RUR, UMICRO, PREGU #### [facility] [address] [place] [address] Dr. Tisha Carr Epithelial cells LM Ql (Urine sed) MODERATE Abnormal NONE SEEN /RARE The [facility] Comment on above: Performed By: #### E RUR, UMICRO, PREGU #### [facility] [address] [place] [address] Dr. Tisha Carr MUCOUS MODERATE Abnormal NONE SEEN [facility] Comment on above: Performed By: #### E RUR, UMICRO, PREGU #### [facility] [address] [place] [address] Dr. Tisha Carr RBC 0-2 Normal 0-2 [facility] Comment on above: Performed By: #### E RUR, UMICRO, PREGU #### [facility] [address] [place] [address] Dr. Tisha Carr WBC 0-2 Abnormal NONE SEEN The [facility] Comment on above: Performed By: #### E RUR, UMICRO, PREGU #### [facility] [address] [place] [address] Dr. Tisha Carr PAP ACOG PANEL 2: 21 to 29on 04-11-2022 . . Normal The [facility] Comment on above: Performed By: #### U RCX #### [facility] [address] [place] [address] Dr. Tisha Carr Age Gdln ACOG Testing -29 Normal [facility] Comment on above: Performed By: #### U RCX #### [facility] [address] [place] [address] Dr. Tisha Carr DIAGNOSIS: Comment Normal [facility] Comment on above: Result Comment: NEGA TIVE FOR INTRAEPITHELIAL LESION OR MALIGNANCY. FUNGAL ORGANISMS MORPHOLOGICALLY CONSISTENT WITH SHEREE SPECIES ARE PRESENT. Performed By: #### U RCX #### [facility] [address] [place] [address] Dr. Tisha Carr Methodology: Comment Normal [facility] Comment on above: Result Comment: This liquid based ThinPrep(R) pap test was screened with the use of an image guided system. Performed By: #### U RCX #### [facility] [address] [place] [address] Dr. Tisha Carr Note: Comment Normal [facility] Comment on above: Result Comment: The Pap smear is a screening test designed to aid in the detection of premalignant and malignant conditions of the uterine cervix. It is not a diagnostic procedure and should not be used as the sole means of detecting cervical cancer. Both false-positive and false-negative reports do occur. . Performed By: #### U RCX #### [facility] [address] [place] [address] Dr. Tisha Carr Performed by: Comment Normal [facility] Comment on above: Result Comment: Caleb Schaeffer, Blocklayer (ASCP) Performed By: #### U RCX #### [facility] [address] [place] [address] Dr. Tisha Carr Reflex Criteria: Comment Normal [facility] Comment on above: Result Comment: The HPV DNA reflex criteria were not met with this specimen result therefore, no HPV testing was performed. . Performed By: #### U RCX #### [facility] [address] [place] [address] Dr. Tisha Carr Specimen adequacy: Comment Normal [place] Comment on above: Result Comment: Sati sfactory for evaluation. Endocervical and/or squamous metaplastic cells (endocervical component) are present. Performed By: #### U RCX #### [facility] [address] [place] [address] Dr. Tisha Carr CULTURE URINEon 01-08-2022 CULTURE [...] Trimethoprim/Sulfamethox azole <=20 S F Normal The [facility] Comment on above: Performed By: #### U RCX #### [facility] [address] [place] [address] Dr. Tisha Carr Covid-19 PCR (CVDTB)on 12-23 SARS-CoV-2 (COVID-19) RNA OC+probe Ql (Unsp spec) Not detected Normal NOT DETECTED The [facility] Comment on above: Result Comment: This test is not yet approved or cleared by the [place] FDA. When there are no FDA-approved or cleared tests available, and other criteria are met, FDA can make tests available under an emergency access mechanism called an Emergency Use Authorization (EUA). The EUA for this test is supported by the [place] of Health and Human Service's (HHS's) declaration [...] SARS-CoV-2. Performed By: #### C VDTBH #### [facility] [address] [place] [address] Dr. Tisha Carr ER URINE PROFILEon 2 Bilirubin Ql (U) MODERATE Abnormal NEGATIVE [facility] Comment on above: Performed By: #### YULY BRYANT, PREGU #### [facility] [address] [place] [address] Dr. Tisha Carr Clarity (U) CLEAR Normal CLEAR [facility] Comment on above: Performed By: #### Sofi MEEKRYULY, PREGU #### [facility] [address] [address] [address] Tisha Carr Color (U) DK. YELLOW Normal YELLOW [facility] Comment on above: Performed By: #### YULY BRYANT, PREGU #### [facility] [address] [place] [address] Dr. Tisha Carr ERUREJI A micrscopic examina tion will be performed if indicated. Normal The [facility] Comment on above: Performed By: #### NHAN BRYANTRO, PREGU #### [facility] [address] [place] [address] Dr. Tisha Carr Glucose Ql (U) Negative Normal NEGATIVE [facility] Comment on above: Performed By: #### YULY BRYANT, PREGU #### [facility] [address] [place] [address] Dr. Tisha Carr Hemoglobin Ql (U) Negative Normal NEGATIVE The [facility] Comment on above: Performed By: #### YULY BRYANT, PREGU #### [facility] [address] [address] [address] Tisha Carr Ketones Ql (U) >=80 Abnormal NEGATIVE [facility] Comment on above: Performed By: #### YULY BRYANT, PREGU #### [facility] [address] [place] [address] Dr. Tisha Carr LEUKOCYTES TRACE Abnormal NEGATIVE The [facility] Comment on above: Performed By: #### YULY BRYANT, PREGU #### [facility] [address] [place] [address] Dr. Tisha Carr Nitrite Ql (U) Negative Normal NEGATIVE [facility] Comment on above: Performed By: #### YULY BRYANT PREGU #### [facility] [address] [place] [address] Dr. Tisha Carr pH (U) 6.0 [pH] Normal 5-9 [facility] Comment on above: Performed By: #### YULY BRYANT PREGU #### [facility] [address] [place] [address] Dr. Tisha Carr Protein (U) [Mass/Vol] 100 mg/dL Abnormal NEGATIVE/ TRACE The [facility] Comment on above: Performed By: #### YULY BRYANT PREGU #### [facility] [address] [place] [address] Dr. Tisha Carr SPEC GRAVITY 1.025 Normal 1.005-<=1.025 [facility] Comment on above: Performed By: #### YULY BRYANT PREGU #### [facility] [address] [place] [address] Dr. Tisha Carr UR MICRO IND INDICATED Normal [facility] Comment on above: Performed By: #### YULY BRYANT PREGU #### [facility] [address] [place] [address] Dr. Tisha Carr Urobilinogen Qn (U) 1.0 {Alma'U}/dL Normal 0.2 - 1.0 [facility] Comment on above: Performed By: #### YULY BRYANT PREGU #### [facility] [address] [place] [address] Dr. Tisha Carr [facility] Normal [facility] Comment on above: Result Comment: Nega tive for Flu A protein angiten. Infection due to Flu A cannot be ruled out. Flu A angiten in the sample may be below the detection limit of the test. Performed By: #### U RCX #### [facility] [address] [place] [address] Dr. Tisha Carr INFLUBNEGH SEE BELOW Normal [facility] Comment on above: Result Comment: Nega tive for Flu B protein antigen. Infection due to Flu B cannot be ruled out. Flu B antigen in the sample may be below the detection limit of the test. Performed By: #### U RCX #### [facility] [address] [place] [address] Dr. Tisha Carr INFLUENZA A AG Negative Normal NEGATIVE SEE COMMENT [facility] Comment on above: Performed By: #### U RCX #### [facility] [address] [place] [address] Dr. Tisha Carr INFLUENZA B AG Negative Normal NEGATIVE SEE COMMENT [facility] Comment on above: Performed By: #### U RCX #### [facility] [address] [place] [address] Dr. Tisha Carr INTERNAL CONTROLS Within Normal Limits Normal Wi thin Normal Limits [facility] Comment on above: Performed By: #### U RCX #### [facility] [address] [place] [address] Dr. Tisha Carr URon 01-06-2022 , QUAL Negative Normal NEGATIVE [facility] Comment on above: Performed By: #### E RUR, UMICRO, PREGU #### [facility] [address] [place] [address] Dr. Tisha Carr URINE MICROSCOPIC ONLYon BACTERIA SMALL Abnormal NONE SEEN The [facility] Comment on above: Performed By: #### U RCX #### [facility] [address] [place] [address] Dr. Tisha Carr Bacteria identified Cx Nom (U) INDICATED Normal [facility] Comment on above: Performed By: #### U RCX #### [facility] [address] [place] [address] Dr. Tisha Carr CAST NONE SEEN Normal NONE SEEN The [facility] Comment on above: Performed By: #### U RCX #### [facility] [address] [place] [address] Dr. Tisha Carr Crystals LM Nom (Urine sed) NONE SEEN Normal NONE SEEN The [facility] Comment on above: Performed By: #### U RCX #### [facility] [address] [address] [address] Tisha Carr Epithelial cells LM Ql (Urine sed) MANY Abnormal NONE SEEN /RARE [facility] Comment on above: Performed By: #### U RCX #### [facility] [address] [address] [address] Tisha Carr MUCOUS LARGE Abnormal NONE SEEN The [facility] Comment on above: Performed By: #### U RCX #### [facility] [address] [address] [address] Tisha Carr RBC NONE SEEN Abnormal 0-2 [facility] Comment on above: Performed By: #### U RCX #### [facility] [address] [place] [address] Dr. Tisha Carr WBC 5-10 Abnormal NONE SEEN The [facility] Comment on above: Performed By: #### U RCX #### [facility] [address] [place] [address] Dr. Tisha Carr Vital Signs Date Time Vital Sign Value Performing Clinician Faci lity 09-22-2023 16:01-0500 Body weight 89.09 kg Belkis Jessica DO Work Phone: [facility] 09-22-2023 16:01-0500 Diastolic blood pressure 70 mm[Hg] Belkis Jessica DO Work Phone: [facility] 09-22-2023 16:01-0500 Systolic blood pressure 120 mm[Hg] Belkis Jessica DO Work Phone: [facility] Encounters Encounter Date Encounter Type [...] Available Start: 10-20-2023 End: 10-20-2023 ambulatory BELKIS WUO Not Available Start: 09-22-2023 [...] Phone: Start: 09-22-2023 IGP,APTIMA HPV,AGE GDLN Belkis Butlerzio DO Work Phone: Plan of Treatment Date Care Activity Detail Author Start: 10-20-2023 End: 10-20-2023 Patient encounter procedure 10/20/2023 3:10 PM EST Routine [facility] [address] [address] Belkis Lopez, DO [address] [place] [address] [facility] Start: 09-22-2023 End: 09-22-2024 Alpha fetoprotein, maternal Alpha fetoprotein, maternal Lab Routine Second trimester Need for maternal serum alpha-protein (MSAFP) screening Expected: 09/22/2023 (Approximate), Expires: 09/22/2024 [facility] Comment on above: Expected: 09/22/2023 (Approximate), Expires: 09/22/2024 Start: 09-22-2023 End: 09-22-2024 US for US OB ANATOMY SINGLE W US OB CERVICAL LENGTH Imaging Routine Screening, , for anatomic survey Expected: 09/22/2023 (Approximate), Expires: 09/22/2024 [facility] Comment on above: Expected: 09/22/2023 (Approximate), Expires: 09/22/2024 CHLAMYDIA TRACHOMATI S (GENITO/STI) CHLAMYDIA TRACHOMATIS (GENITO/STI) Lab Routine Exposure to STD Ordered: 09/22/2023 [facility] Comment on above: Ordered: 09/22/2023 Cytology Cervical or vaginal smear or scraping study Pap Smear Pathology and Cytology Routine Well woman exam with routine gynecological exam Ordered: 09/22/2023 [facility] Comment on above: Ordered: 09/22/2023 Neisseria gonorrhoea e DNA [Presence] in Unspecified specimen by OC with probe detection Neisseria gonorrhea DNA probe, direct Lab Routine Exposure to STD Ordered: 09/22/2023 [facility] Comment on above: Ordered: 09/22/2023 SURESWAB(R) ADVANCED VAGINITIS PLUS, TMA SURESWAB(R) ADVANCED VAGINITIS PLUS, TMA Pathology and Cytology Routine Exposure to STD Ordered: 09/22/2023 [facility] Work Phone: Comment on above: Ordered: 09/22/2023 Payers Date Payer Category Payer Medicaid [employer] [place] [employer] [id number] 2021-Present [address] [place] [address] [id number] 2000 Unknown [id number] [id number] 2000 Unknown [id number] 2.16.840.1.099357.3.579.2.593 2000 Unknown [id number] 2.16.840.1.112598.3.579.2.593 2000 Unknown [id number] 2.16.840.1.695774.3.579.2.593 2000 Unknown [id number] 2.16.840.1.124548.3.579.2.9 2000 Unknown [id number] 2.16.840.1.252952.3.579.2.9 2000 Unknown [id number] 2.16.840.1.532996.3.579.2.1258 2000 Unknown [id number] 2.16.840.1.856912.3.579.2.9 2000 Unknown [id number] 2.16.840.1.315117.3.579.2.1258 2000 Unknown [id number] 2.16.840.1.818363.3.579.2.9 2000 Unknown [id number] 2.16.840.1.494998.3.579.2.1258 2000 Unknown [id number] 2.16.840.1.079549.3.579.2.1259 2000 Unknown [id number] 2.16.840.1.386227.3.579.2.9 2000 Unknown [id number] 2.16.840.1.107009.3.579.2.1259 2000 Unknown [id number] 2.16.840.1.613757.3.579.2.9 2000 Unknown [id number] 2.16.840.1.019253.3.579.2.1259 1959 Unknown [id number] Social History Date Type Detail Facility Tobacco smoking stat [facility] Tobacco smoking consumption unknown [facility] [...] Problems Past Medical History: Diagnosis Date Asthma ([facility]) No family history on file. Social History [...] nursing note reviewed. Exam conducted with a bereavement counselor present. Vitals: There is no height or [...] 11/07/2022 The Sherri chavira DATE CREATED AUTHOR 'S ORGANIZ ATION 02/02/2024 [facility] EPIC Reason for Visit (unrecogniz ed [...] ON THE PRIMARY CLINICAL RECORDS. [facility]. provides no warranty or guarantee of the accuracy or completeness of information in this document.
--- NOTE | 2024-04-15 13:17 | PC.NURSE ---
Meka and 9 weeks old Kahlil arrive for follow up support post oral revision. Mom reports improvements with feeds almost immediately after tongue and lip tie revision. Infant no longer gassy, hiccups, unsettled after feeds. does occasionally spit up, but nothing like he did before . Latching is easier and deeper, no pain or discomfort reported by mom. Audible swallowing without clicking noted, infant remains latched for feed and not slipping off breast. Mom is pleased with progress. Aware to call for questions or further concerns. Aware of [facility] group as well. Leaves ambulatory with children.
== END 2024-04-15 13:22 | disposition home or self-care (01) ==
LOC: FBCO 07:49
PROVIDERS: PCP Nurse Practitioner Family; Visit Provider Obstetrics & Gynecology
DX: Z39.1 Encounter for care and examination of lactating mother (principal)
CPT/HCPCS: G0463

== ENCOUNTER 2025-03-19 11:22 | Outpatient (OUT) | payer OTHER, SELFPAY ==
--- OUTSIDE RECORDS SUMMARY | 2025-03-19 11:28 | XMS_ITS | CCD ---
Author Organization [facility] Providers Care Manager Epic Name Role Phone JOSE ., LITA Admitting Unavailable JOSE ., LITA Attending Unavailable ARIANE HEDRICK Primary Care Unavailable JOSE ., LITA Consulting [...] NELSON Consulting Unavailable Unavailable Primary Care Provider UnavailPatrizia Phillips Unavailable Allergies Allergy Classification Reported Allergen(s) Allergy Type Date of Onset Reaction(s) Facility (1 source) Ibuprofen Drug Allergy 01-15-2016 [facility] Repository (3 sources) Ibuprofen Drug Allergy 07-10-2023 Unknown [facility] Work Phone: Medications Current Medications Medication Drug Class(es) Dates Sig (Normalized) Sig (Original) ondansetron 4 mg disintegrating oral tablet (2 sources) Serotonin-3 Receptor Antagonist Start: 05-31-2023 take 1 tablet by mouth every six hours as needed for nausea and vomiting ondansetron ODT (Zofran-ODT) 4 MG disintegrating tablet Take 4 mg by mouth every 6 (six) hours if needed for nausea or vomiting. 0 05/31/2023 Active MV-Min-Fe Fum-FA-DHA ( 1 PO) (1 source) MV-Min- Fe Fum-FA-DHA ( 1 PO) Take by mouth Active Completed/Discontinued Medications Medication Drug Class(es) Dates Sig (Normalized) Sig (Original) [id number] 200 actuat albuterol 0.09 mg/actuat metered dose inhaler (1 source) beta2-Adrenergic Agonist Start: 10-06-2023 End: 03-17-2025 take 1-2 puff(s) by mouth every four hours as needed albuterol HFA 90 mcg/act inhaler INHALE 1 - 2 PUFFS BY MOUTH EVERY 4 HOURS NEEDED 10/06/2023 03/17/2025 Discontinued 3 ml insulin isophane, human 100 unt/ml pen injector (1 source) Start: 12-02-2023 End: 03-17-2025 inject 5 [IU] by subcutaneous injection at bedtime insulin NPH, Isophane, (HumuLIN N KWIKPEN) 100 UNIT/ML injection Indications: Insulin controlled gestational diabetes mellitus (GDM) during , antepartum ([facility]) Inject 5 Units under the skin at bedtime 3 mL 3 12/02/2023 03/17/2025 Discontinued isopropyl alcohol 0.7 ml/ml medicated pad (1 source) Start: 10-20-2023 End: 03-17-2025 Alcohol Swabs (Alcohol Prep Pad) 70 % pads Indications: Gestational diabetes mellitus (GDM), antepartum, gestational diabetes method of control unspecified ([facility]) , Elevated glucose tolerance test Apply 1 Pad topically Daily Use four times daily to check FSBS. 150 each 3 10/20/2023 03/17/2025 Discontinued omeprazole 20 mg delayed release oral capsule (3 sources) Proton Pump Inhibitor Start: 09-22-2023 End: 03-17-2025 take 1 capsule by mouth before mealtime omeprazole (PriLOSEC) [address] capsule Indications: Heartburn Take 1 capsule (20 mg) by mouth in the morning. Take before meals. Do not crush or chew.. 30 capsule 11 09/22/2023 03/17/2025 Discontinued promethazine hydrochloride 12.5 mg oral tablet (3 sources) Phenothiazine Start: 12-16-2023 End: 03-17-2025 take 1 tablet by mouth every six hours promethazine (Phenergan) 12.5 MG tablet Take 12.5 mg by mouth every 6 (six) hours 12/16/2023 03/17/2025 Discontinued Start: 07-10-2023 End: 10-08-2023 take 1 tablet [...] sexually transmissible disorder] Onset: 04-09-2022 09-18-2023 Episodic Menstrual disorders (1 source) Missed period; Translations: [Irregular menstruation, unspecified] 03-17-2025 Chronic Other gastrointestinal disorders (1 source) Heartburn; Translations: [Heartburn] 09-22-2023 Episodic Other and delivery including normal (3 sources) Second trimester ; Translations: [Encounter for supervision [...] Translations: [UNSPECIFIED ABDOMINAL PAIN] Onset: 06-25-2022 Episodic Diabetes or abnormal glucose tolerance complicating ; childbirth; or the puerperium (1 source) Gestational diabetes mellitus; Translations: [Gestational diabetes mellitus in , unspecified control] Onset: 11-17-2023 11-17-2023 Episodic Fluid and electrolyte disorders (1 source) Dehydration; Translations: [DEHYDRATION] Onset: 01-08-2022 Episodic Nausea and vomiting (4 sources) Nausea with vomiting, unspecified; Translations: [NAUSEA WITH VOMITING UNSPECIFIED] Onset: 01-06-2022 Episodic Results Test Name Value Interpretation Reference Range Facility HCG ( test) Ql (U)o n 03-17-2025 Interpretation and review of laboratory results Abnormal [facility] Test, Ur [facility] US OB TRANSVAGINALon 025 US OB TRANSVAGINAL EXAM: US OB TRANSVAG INAL HISTORY: Dating. COMPARISON: None available. TECHNIQUE: Two-dimensional transvaginal grayscale ultrasound imaging of the pelvis was performed. Color Doppler evaluation of the ovaries was also performed. FINDINGS: The uterus demonstrates a normal homogeneous echotexture. The cervix measures 4.7 cm in length and the cervical os is closed. The right ovary measures 2.3 x 1.5 x 1.8 cm and demonstrates a normal echotexture. There is normal color Doppler flow. The left ovary measures 3.4 x 1.6 x 2.6 cm and demonstrates a normal echotexture. There is normal color Doppler flow. No fluid is present within the cul-de-sac. There is a single, live intrauterine gestation identified with a heart rate of 188 beats per minute and a crown-rump length measurement of 3.3 cm, correlating to a gestational age of 10 weeks 1 days (+/- 6 days). There is no subchorionic hemorrhage visualized. A yolk sac is visualized. IMPRESSION: 1. Single, live intrauterine gestation 10 weeks, 5 days by LMP. Today's ultrasound measurements correlate with a gestational age of 10 weeks 1 days (+/- 6 days). AGATHA by today's ultrasound is 10/12/2025. 2. Normal color Doppler evaluation of the bilateral ovaries.. Interpreted by: Electronically signed by MARY BURDEN II, MD, PHD at 18-Mar-2025 08:39:58 AM [facility] Normal Not Available Comment on above: Order Comment: US OB TRANSVAGINAL No LMP recorded. Urinalysis macro (dipstick) panel (U)on 03-17-2025 Bilirubin, UA Negative Negative - 4(70) +++ mg/dL [facility] Blood, UA Negative Negative - 50 Flash/mcL [facility] Clarity, UA Clear [facility] Color, UA Yellow [facility] Healthcare Glucose, UA Negative Negative - 2000(110) ++++ mg/dL [facility] Interpretation and review of laboratory results Normal [facility] Ketones, UA Negative Negative - 160(16) ++++ mg/dL [facility] Leukocytes, UA Negative Negative - 500+++ Taylor/mcL [facility] Nitrite, UA Negative Negative - Positive [facility] pH, UA 7 5 - 9 [facility] Protein, UA Negative Negative - 1999(20) ++++ mg/dL [facility] Spec Grav, UA 1.005 1 - 1.03 [facility] Urobilinogen, UA 0.2 0.2 - 12 mg/dL [facility] IGP,APTIMA HPV,AGE GDLNon AGE GDLN ACOG TESTING Note . [facility] Comment on above: TESTS RESULT FLAG UN ITS REF RANGE LAB Clinician Provided Cytology Information Source.............Cervix Other.............. No. of containers..01 ThinPrep Vial Age Algo ACOG Bina... FLAG LEGEND: L-Low Normal,H-High Normal,LL-Alert Low,HH-Alert High <-Panic Low,>-Panic High,A-Abnormal,AA-Critical Abnormal Performed at: 01 =G [facility] [place] [address] Lali Holloway MD, IGP, RFX APTIMA HPV ASCU Note . [facility] Comment on above: TESTS RESULT FLAG UN ITS REF RANGE LAB DIAGNOSIS: 02 NEGATIVE FOR INTRAEPITHELIAL LESION OR MALIGNANCY. Specimen adequacy: 02 Satisfactory for evaluation. No endocervical component is identified. An endocervical component is not commonly seen in the patient. Performed by: 02 Kieran Pickering, Salon Receptionist ([facility]) . 02 Note: Note 02 The [...] High <-Panic Low,>-Panic High,A-Abnormal,AA-Critical Abnormal Performed at: [facility] [address] [place] [address] Lali Holloway MD, Performed at: = - [facility] [id number] [place]: Lali Holloway MD, Phone: [phone] Performed at: WB - [facility] Tino Urbina W [id number] [place]: Lali Holloway MD, Phone: [phone] [facility] Urinalysis macro (dipstick) panel (U)on 09-22-2023 Bilirubin, UA Negative Negative - 4(70) +++ mg/dL [facility] Blood, UA Negative Negative - 50 Flash/mcL [facility] Clarity, UA Clear [facility] Color, UA Yellow [facility] Glucose, UA Negative Negative - 1999(110) ++++ mg/dL [facility] Interpretation and review of laboratory results Abnormal [facility] Ketones, UA Positive Negative - [...] Urobilinogen, UA 0.2 0.2 - 12 mg/dL [facility] COMPLIANCE DRUG SCREENon PDF . Normal [facility] Comment on above: Performed By: #### U RCX #### [facility] [address] [place] [address] Dr. Tisha Carr Summary FINAL [facility] Comment on above: Result Comment: = TOXASSURE [...] test is not intended to distinguish between bfxvh-6-dulnbuosordvkqsznwyd, the predominant form of THC in most herbal or marijuana-based products, and okamk-7-rplyjjdisngkoyrhwoeb. Methylphenidate PRESENT UNEXPECTED Ritalinic Acid PRESENT UNEXPECTED [...] = Performed By: #### U RCX #### [facility] [address] [place] [address] Dr. Tisha Carr URIC ACID RAND URINEon 10-31 Uric Acid, Urine 67.3 mg/dL Normal Not Estab. [facility] Comment on above: Performed By: #### U RCX #### [facility] [address] [place] [address] Dr. Tisha Carr DRUG SCREEN RAPID (URINE)on 10-30-2022 AMP Negative Normal NEGATIVE [facility] Comment on above: Performed By: #### U RCX #### [facility] [address] [place] [address] Dr. Tisha Carr BAR Negative Normal NEGATIVE [facility] Comment on above: Performed By: #### U RCX #### [facility] [address] [place] [address] Dr. Tisha Carr BUP Negative Normal NEGATIVE [facility] Comment on above: Performed By: #### U RCX #### [facility] [address] [place] [address] Dr. Tisha Carr BZO Negative Normal NEGATIVE [facility] Comment on above: Performed By: #### U RCX #### [facility] [address] [place] [address] Dr. Tisha Carr SOCRATES Negative Normal NEGATIVE [facility] Comment on above: Performed By: #### U RCX #### [facility] [address] [place] [address] Dr. Tisha Carr CUT-OFFS SEE BELOW Normal [facility] Comment on above: Result Comment: [...] ng/mL Performed By: #### U RCX #### [facility] [address] [place] [address] Dr. Tisha Carr DRUG CUT HEADER DRUG CLASS TEST SYST EM CUT-OFF CONCENTRATIONS ARE FOLLOWS: Normal [facility] Comment on above: Performed By: #### U RCX #### [facility] [address] [place] [address] Dr. Tisha Carr mAMP Negative Normal NEGATIVE [facility] Comment on above: Performed By: #### U RCX #### [facility] [address] [place] [address] Dr. Tisha Carr MTD Negative Normal NEGATIVE [facility] Comment on above: Performed By: #### U RCX #### [facility] [address] [place] [address] Dr. Tisha Carr OPI Negative Normal NEGATIVE [facility] Comment on above: Performed By: #### U RCX #### [facility] [address] [place] [address] Dr. Tisha Carr OXY Negative Normal NEGATIVE [facility] Comment on above: Performed By: #### U RCX #### [facility] [address] [place] [address] Dr. Tisha Carr PCP Negative Normal NEGATIVE [facility] Comment on above: Performed By: #### U RCX #### [facility] [address] [place] [address] Dr. Tisha Carr PPX Negative Normal NEGATIVE [facility] Comment on above: Performed By: #### U RCX #### [facility] [address] [place] [address] Dr. Tisha Carr TCA Negative Normal NEGATIVE [facility] Comment on above: Performed By: #### U RCX #### [facility] [address] [place] [address] Dr. Tisha Carr THC Positive Abnormal NEGATIVE [facility] Comment on above: Performed By: #### U RCX #### [facility] [address] [address] [address] Tisha Carr CBC AUTO DIFFon 06-21-2022 BASO # 0.0 103/ul Normal 0.0-0.1 [facility] Comment on above: Performed By: #### U RCX #### [facility] [address] [address] [address] Tisha Carr Basophils/100 WBC (Bld) 0.2 % Normal 0.2-2.0 [facility] Comment on above: Performed By: #### U RCX #### [facility] [address] [place] [address] Dr. Tisha Carr EO # 0.0 103/ul Normal 0.0-0.7 [facility] Comment on above: Performed By: #### U RCX #### [facility] [address] [place] [address] Dr. Tisha Carr Eosinophils/100 WBC (Bld) 0.2 % Critically low 0.9-7.0 [facility] Comment on above: Performed By: #### U RCX #### [facility] [address] [place] [address] Dr. Tisha Carr Erythrocyte distribution width (RBC) [Ratio] 12.3 % Normal 11.0-15.0 [facility] Comment on above: Performed By: #### U RCX #### [facility] [address] [place] [address] Dr. Tisha Carr Hematocrit (Bld) [Volume fraction] 43.1 % Normal 36.0-48.0 [facility] Comment on above: Performed By: #### U RCX #### [facility] [address] [place] [address] Dr. Tisha Carr Hemoglobin (Bld) [Mass/Vol] 15.1 g/dL Normal 12.0-16.0 [facility] Comment on above: Performed By: #### U RCX #### [facility] [address] [place] [address] Dr. Tisha Carr IG # 0.06 10e3/ul Critically high 0.00-0.03 [facility] Comment on above: Performed By: #### U RCX #### [facility] [address] [address] [address] Tisha Carr IG % 0.5 % Normal 0.0-0.5 [facility] Comment on above: Performed By: #### U RCX #### [facility] [address] [address] [address] Tisha Carr LYMPH # 1.0 103/ul Critically low 1.2-3.8 [facility] Comment on above: Performed By: #### U RCX #### [facility] [address] [address] [address] Tisha Carr Lymphocytes/100 WBC (Bld) 8.2 % Critically low 20.5-60.0 [facility] Comment on above: Performed By: #### U RCX #### [facility] [address] [address] [address] Tisha Carr MANUAL DIFF REQ NO Normal [facility] Comment on above: Performed By: #### U RCX #### [facility] [address] [address] [address] Tisha Carr MCH (RBC) [Entitic mass] 30.3 pg Normal 26.7-34.0 [facility] Comment on above: Performed By: #### U RCX #### [facility] [address] [address] [address] Tisha Carr MCHC (RBC) [Mass/Vol] 35.0 g/dL Normal 29.9-35.2 [facility] Comment on above: Performed By: #### U RCX #### [facility] [address] [address] [address] Tisha Carr MCV (RBC) [Entitic vol] 86.4 fL Normal 81.0-99.0 [facility] Comment on above: Performed By: #### U RCX #### [facility] [address] [address] [address] Tisha Carr MONO # 0.8 103/ul Normal 0.3-0.8 [facility] Comment on above: Performed By: #### U RCX #### [facility] [address] [address] [address] Tisha Carr Monocytes/100 WBC (Bld) 6.0 % Normal 1.7-12.0 [facility] Comment on above: Performed By: #### U RCX #### [facility] [address] [address] [address] Tisha Carr NEUT # 10.8 103/ul Critically high 1.4-6.5 [facility] Comment on above: Performed By: #### U RCX #### [facility] [address] [address] [address] Tisha Carr Neutrophils/100 WBC (Bld) 84.9 % Critically high 43.0-75.0 [facility] Comment on above: Performed By: #### U RCX #### [facility] [address] [address] [address] Tisha Carr Platelet mean volume (Bld) [Entitic vol] 10.8 fL Normal 9.5-13.5 [facility] Comment on above: Performed By: #### U RCX #### [facility] [address] [address] [address] Tisha Carr PLT 237 103/ul Normal 150-450 [facility] Comment on above: Performed By: #### U RCX #### [facility] [address] [address] [address] Tisha Carr RBC 4.99 106/ul Normal 4.20-5.40 [facility] Comment on above: Performed By: #### U RCX #### [facility] [address] [address] [address] Tisha Carr WBC 12.7 103/ul Critically high 4.0-11.0 [facility] Comment on above: Performed By: #### U RCX #### [facility] [address] [address] [address] Tisha Carr CRPon 06-21-2022 CRP 10.0 mg/dL Critically high <=1.0 [facility] Comment on above: Performed By: #### C RP, CMP, LIPA #### [facility] [address] [address] [address] Tisha Carr ER URINE PROFILEon 2 Bilirubin Ql (U) SMALL Abnormal NEGATIVE [facility] Comment on above: Performed By: #### E RUR, UMICRO, PREGU #### [facility] [address] [address] [address] Tisha Carr Clarity (U) CLEAR Normal CLEAR [facility] Comment on above: Performed By: #### E RUR, UMICRO, PREGU #### [facility] [address] [address] [address] Tisha Carr Color (U) YELLOW Normal YELLOW [facility] Comment on above: Performed By: #### E RUR, UMICRO, PREGU #### [facility] [address] [address] [address] Tisha Carr ERUAHIsidra A micrscopic examina tion will be performed if indicated. Normal [facility] Comment on above: Performed By: #### E RUR, UMICRO, PREGU #### [facility] [address] [address] [address] Tisha Carr Glucose Ql (U) Negative Normal NEGATIVE [facility] Comment on above: Performed By: #### E RUR, UMICRO, PREGU #### [facility] [address] [address] [address] Tihsa Carr Hemoglobin Ql (U) MODERATE Abnormal NEGATIVE [facility] Comment on above: Performed By: #### E RUR, UMICRO, PREGU #### [facility] [address] [address] [address] Tisha Carr Ketones Ql (U) 80 mg/dl Abnormal NEGATIVE [facility] Comment on above: Performed By: #### E RUR, UMICRO, PREGU #### [facility] [address] [address] [address] Tisha Carr LEUKOCYTES Negative Normal NEGATIVE [facility] Comment on above: Performed By: #### E RUR, UMICRO, PREGU #### [facility] [address] [address] [address] Tisha Carr Nitrite Ql (U) Negative Normal NEGATIVE [facility] Comment on above: Performed By: #### YULY BRYANT, PREGU #### [facility] [address] [address] [address] Tisha Carr pH (U) 6.0 [pH] Normal 5-9 [facility] Comment on above: Performed By: #### YULY BRYANT, PREGU #### [facility] [address] [place] [address] Dr. Tisha Carr SPEC GRAVITY 1.025 Normal 1.005-<=1.025 [facility] Comment on above: Performed By: #### YULY BRYANT, PREGU #### [facility] [address] [place] [address] Dr. Tisha Carr UA PROTEIN TRACE Normal NEGATIVE/ TRACE [facility] Comment on above: Performed By: #### YULY BRYANT, PREGU #### [facility] [address] [place] [address] Dr. Tisha Carr UR MICRO IND INDICATED Normal [facility] Comment on above: Performed By: #### YULY BRYANT, PREGU #### [facility] [address] [place] [address] Dr. Tisha Carr Urobilinogen Qn (U) 1.0 {Alma'U}/dL Normal 0.2 - 1.0 [facility] Comment on above: Performed By: #### YULY BRYANT, PREGU #### [facility] [address] [place] [address] Dr. Tisha Carr LACTATE/LACTIC ACIDon 2021 Lactate [Moles/Vol] 1.0 mmol/L Normal 0.4-1.9 [facility] Comment on above: Performed By: #### U RCX #### [facility] [address] [place] [address] Dr. Tisha Carr LIPASEon 06-21-2022 Lipase [Catalytic activity/Vol] 41.0 U/L Critically low 73.0-393.0 [facility] Comment on above: Performed By: #### C RP, CMP, LIPA #### [facility] [address] [place] [address] Dr. Tisha Carr URon 06-21-2022 , QUAL Negative Normal NEGATIVE [facility] Comment on above: Performed By: #### E RUR, UMICRO, PREGU #### [facility] [address] [address] [address] Tisha Carr PROF 14(COMP METB)on 022 Albumin [Mass/Vol] 4.0 g/dL Normal 3.4-5.0 [facility] Comment on above: Performed By: #### C RP, CMP, LIPA #### [facility] [address] [place] [address] Dr. Tisha Carr Albumin/Globulin [Mass ratio] 1.0 {ratio} Normal [facility] Comment on above: Performed By: #### C RP, CMP, LIPA #### [facility] [address] [place] [address] Dr. Tisha Carr ALP [Catalytic activity/Vol] 74 U/L Normal 46-116 [facility] Comment on above: Performed By: #### C RP, CMP, LIPA #### [facility] [address] [place] [address] Dr. Tisha Carr ALT [Catalytic activity/Vol] 33 U/L Normal 14-59 [facility] Comment on above: Performed By: #### C RP, CMP, LIPA #### [facility] [address] [place] [address] Dr. Tisha Carr Anion gap [Moles/Vol] 15.8 mmol/L Normal [facility] Comment on above: Performed By: #### C RP, CMP, LIPA #### [facility] [address] [place] [address] Dr. Tisha Carr AST [Catalytic activity/Vol] 17 U/L Normal 15-37 [facility] Comment on above: Performed By: #### C RP, CMP, LIPA #### [facility] [address] [place] [address] Dr. Tisha Carr Bilirubin [Mass/Vol] 1.3 mg/dL Critically high 0.2-1.0 [facility] Comment on above: Performed By: #### C RP, CMP, LIPA #### [facility] [address] [place] [address] Dr. Tisha Carr Calcium [Mass/Vol] 9.2 mg/dL Normal 8.5-10.1 [facility] Comment on above: Performed By: #### C RP, CMP, LIPA #### [facility] [address] [place] [address] Dr. Tisha Carr Chloride [Moles/Vol] 102 mmol/L Normal 98-107 [facility] [facility] Comment on above: Performed By: #### C RP, CMP, LIPA #### [facility] [address] [place] [address] Dr. Tisha Carr CO2 [Moles/Vol] 22.7 mmol/L Normal 21.0-32.0 [facility] Comment on above: Performed By: #### C RP, CMP, LIPA #### [facility] [address] [place] [address] Dr. Tisha Carr Creatinine [Mass/Vol] 0.70 mg/dL Normal 0.55-1.02 [facility] Comment on above: Performed By: #### C RP, CMP, LIPA #### [facility] [address] [place] [address] Dr. Tisha Carr EGFR-AF YEMENI >60 Normal >=60 [facility] Comment on above: Performed By: #### C RP, CMP, LIPA #### [facility] [address] [place] [address] Dr. Tisha Carr EGFR-NON AF YEMENI >60 Normal >=60 [facility] Comment on above: Performed By: #### C RP, CMP, LIPA #### [facility] [address] [place] [address] Dr. Tisha Carr Globulin (S) [Mass/Vol] 4.2 g/dL Normal [facility] Comment on above: Performed By: #### C RP, CMP, LIPA #### [facility] [address] [address] [address] Tisha Carr Glucose [Mass/Vol] 93 mg/dL Normal 74-106 [facility] Comment on above: Performed By: #### C RP, CMP, LIPA #### [facility] [address] [place] [address] Dr. Tisha Carr Potassium [Moles/Vol] 3.5 mmol/L Normal 3.5-5.1 [facility] Comment on above: Performed By: #### C RP, CMP, LIPA #### [facility] [address] [place] [address] Dr. Tisha Carr Protein [Mass/Vol] 8.2 g/dL Normal 6.4-8.2 [facility] Comment on above: Performed By: #### C RP, CMP, LIPA #### [facility] [address] [place] [address] Dr. Tisha Carr Sodium [Moles/Vol] 137 mmol/L Normal 136-145 [facility] Comment on above: Performed By: #### C RP, CMP, LIPA #### [facility] [address] [place] [address] Dr. Tisha Carr Urea nitrogen [Mass/Vol] 16.0 mg/dL Normal 7.0-18.0 [facility] Comment on above: Performed By: #### C RP, CMP, LIPA #### [facility] [address] [place] [address] Dr. Tisha Carr Urea nitrogen/Creatinin e [Mass ratio] 22.9 mg/mg Normal [facility] Comment on above: Performed By: #### C RP, CMP, LIPA #### [facility] [address] [place] [address] Dr. Tisha Carr URINE MICROSCOPIC ONLYon BACTERIA TRACE Abnormal NONE SEEN The [facility] Comment on above: Performed By: #### E YULY CUMMINS PREGU #### [facility] [address] [place] [address] Dr. Tisha Carr Bacteria identified Cx Nom (U) NOT INDICATED Normal [facility] Comment on above: Performed By: #### YULY BRYANT, PREGU #### [facility] [address] [place] [address] Dr. Tisha Carr CAST NONE SEEN Normal NONE SEEN The [facility] Comment on above: Performed By: #### YULY BRYANT, PREGU #### [facility] [address] [place] [address] Dr. Tisha Carr Crystals LM Nom (Urine sed) NONE SEEN Normal NONE SEEN [facility] Comment on above: Performed By: #### YULY BRYANT, PREGU #### [facility] [address] [place] [address] Dr. Tisha Carr Epithelial cells LM Ql (Urine sed) MODERATE Abnormal NONE SEEN /RARE [facility] Comment on above: Performed By: #### YULY BRYANT, PREGU #### [facility] [address] [place] [address] Dr. Tisha Carr MUCOUS MODERATE Abnormal NONE SEEN [facility] Comment on above: Performed By: #### YULY BRYANT, PREGU #### [facility] [address] [place] [address] Dr. Tisha Carr RBC 0-2 Normal 0-2 [facility] Comment on above: Performed By: #### YULY BRYANT, PREGU #### [facility] [address] [place] [address] Dr. Tisha Carr WBC 0-2 Abnormal NONE SEEN The [facility] Comment on above: Performed By: #### YULY BRYANT, PREGU #### [facility] [address] [place] [address] Dr. Tisha Carr PAP ACOG PANEL 2: 21 to 29on 04-11-2022 . . Normal [facility] Comment on above: Performed By: #### U RCX #### [facility] [address] [place] [address] Dr. Tisha Carr Age Gdln ACOG Testing 21-29 Normal [facility] Comment on above: Performed By: #### U RCX #### [facility] [address] [place] [address] Dr. Tisha Carr DIAGNOSIS: Comment Normal [facility] Comment on above: Result Comment: NEGA TIVE FOR INTRAEPITHELIAL LESION OR MALIGNANCY. FUNGAL ORGANISMS MORPHOLOGICALLY CONSISTENT WITH SHEREE SPECIES ARE PRESENT. Performed By: #### U RCX #### [facility] [address] [place] [address] Dr. Tisha Carr Methodology: Comment Normal [facility] Comment on above: Result Comment: This liquid based ThinPrep(R) pap test was screened with the use of an image guided system. Performed By: #### U RCX #### [facility] [address] [place] [address] Dr. Tisha Carr Note: Comment Normal [facility] Comment on above: Result Comment: The Pap smear is a screening test designed to aid in the detection of premalignant and malignant conditions of the uterine cervix. It is not a diagnostic procedure and should not be used as the sole means of detecting cervical cancer. Both false-positive and false-negative reports do occur. . Performed By: #### U RCX #### [facility] [address] [place] [address] Dr. Tisha Carr Performed by: Comment Normal [facility] Comment on above: Result Comment: Caleb Schaeffer, Salon Receptionist (ASCP) Performed By: #### U RCX #### [facility] [address] [place] [address] Dr. Tisha Carr Reflex Criteria: Comment Normal [facility] Comment on above: Result Comment: The HPV DNA reflex criteria were not met with this specimen result therefore, no HPV testing was performed. . Performed By: #### U RCX #### [facility] [address] [place] [address] Dr. Tisha Carr Specimen adequacy: Comment Normal [facility] Comment on above: Result Comment: Sati sfactory for evaluation. Endocervical and/or squamous metaplastic cells (endocervical component) are present. Performed By: #### U RCX #### [facility] [address] [place] [address] [id number] [address] Tisha Carr CULTURE URINEon 01-08-2022 CULTURE [...] Trimethoprim/Sulfamethox azole <=20 S F Normal [facility] Comment on above: Performed By: #### U RCX #### [facility] [address] [place] [address] [id number] [address] Tisha Carr Covid-19 PCR (CVDTB)on 12-23 SARS-CoV-2 (COVID-19) RNA OC+probe Ql (Unsp spec) Not detected Normal NOT DETECTED [facility] Comment on above: Result Comment: This test is not yet approved or cleared by the [place] FDA. When there are no FDA-approved or cleared tests available, and other criteria are met, FDA can make tests available under an emergency access mechanism called an Emergency Use Authorization (EUA). The EUA for this test is supported by the [place] of Health and Human Service's (HHS's) declaration [...] SARS-CoV-2. Performed By: #### C VDTBH #### [facility] [address] [address] [address] Tisha Carr ER URINE PROFILEon 2 Bilirubin Ql (U) MODERATE Abnormal NEGATIVE [facility] Comment on above: Performed By: #### E RUR, UMICRO, PREGU #### [facility] [address] [address] [address] Tisha Carr Clarity (U) CLEAR Normal CLEAR [facility] Comment on above: Performed By: #### E RUR, UMICRO, PREGU #### [facility] [address] [address] [address] Tisha Carr Color (U) DK. YELLOW Normal YELLOW [facility] Comment on above: Performed By: #### E RUR, UMICRO, PREGU #### [facility] [address] [address] [address] Tisha Carr ERUAHD A micrscopic examina tion will be performed if indicated. Normal [facility] Comment on above: Performed By: #### Sofi RUR, UMICRO, PREGU #### [facility] [address] [address] [address] Tisha Carr Glucose Ql (U) Negative Normal NEGATIVE [facility] Comment on above: Performed By: #### Sofi RUR, UMICRO, PREGU #### [facility] [address] [address] [address] Tisha Carr Hemoglobin Ql (U) Negative Normal NEGATIVE [facility] Comment on above: Performed By: #### Sofi RUR, UMICRO, PREGU #### [facility] [address] [address] [address] Tisha Carr Ketones Ql (U) >=80 Abnormal NEGATIVE [facility] Comment on above: Performed By: #### E RUR, UMICRO, PREGU #### [facility] [address] [address] [address] Tisha Carr LEUKOCYTES TRACE Abnormal NEGATIVE [facility] Comment on above: Performed By: #### Sofi RUR, UMICRO, PREGU #### [facility] [address] [place] [address] Dr. Tisha Carr Nitrite Ql (U) Negative Normal NEGATIVE [facility] Comment on above: Performed By: #### YULY BRYANT PREGU #### [facility] [address] [place] [address] Dr. Tisha Carr pH (U) 6.0 [pH] Normal 5-9 [facility] Comment on above: Performed By: #### YULY BRYANT, PREGU #### [facility] [address] [place] [address] Dr. Tisha Carr Protein (U) [Mass/Vol] 100 mg/dL Abnormal NEGATIVE/ TRACE [facility] Comment on above: Performed By: #### YULY BRYANT, PREGU #### [facility] [address] [place] [address] Dr. Tisha Carr SPEC GRAVITY 1.025 Normal 1.005-<=1.025 [facility] Comment on above: Performed By: #### YULY BRYANT, PREGU #### [facility] [address] [place] [address] Dr. Tisha Carr UR MICRO IND INDICATED Normal [facility] Comment on above: Performed By: #### YULY BRYANT, PREGU #### [facility] [address] [place] [address] Dr. Tisha Carr Urobilinogen Qn (U) 1.0 {Alma'U}/dL Normal 0.2 - 1.0 [facility] Comment on above: Performed By: #### YULY BRYANT, PREGU #### [facility] [address] [place] [address] Dr. Tisha Carr INFLUENZA A AND B AGon 01-06 INFLUANEGH SEE BELOW Normal [facility] Comment on above: Result Comment: Nega tive for Flu A protein angiten. Infection due to Flu A cannot be ruled out. Flu A angiten in the sample may be below the detection limit of the test. Performed By: #### U RCX #### [facility] [address] [address] [address] Tisha Carr [facility] SEE BELOW Normal [facility] Comment on above: Result Comment: Nega tive for Flu B protein antigen. Infection due to Flu B cannot be ruled out. Flu B antigen in the sample may be below the detection limit of the test. Performed By: #### U RCX #### [facility] [address] [address] [address] Tisha Carr INFLUENZA A AG Negative Normal NEGATIVE SEE COMMENT [facility] Comment on above: Performed By: #### U RCX #### [facility] [address] [address] [address] Tisha Carr INFLUENZA B AG Negative Normal NEGATIVE SEE COMMENT [facility] Comment on above: Performed By: #### U RCX #### [facility] [address] [place] [address] Dr. Tisha Carr INTERNAL CONTROLS Within Normal Limits Normal Wi thin Normal Limits [facility] Comment on above: Performed By: #### U RCX #### [facility] [address] [place] [address] Dr. Tisha Carr URon 01-06-2022 , QUAL Negative Normal NEGATIVE [facility] Comment on above: Performed By: #### E RUR, UMICRO, PREGU #### [facility] [address] [place] [address] Dr. Tisha Carr URINE MICROSCOPIC ONLYon BACTERIA SMALL Abnormal NONE SEEN [facility] Comment on above: Performed By: #### U RCX #### [facility] [address] [place] [address] Dr. Tisha Carr Bacteria identified Cx Nom (U) INDICATED Normal [facility] Comment on above: Performed By: #### U RCX #### [facility] [address] [place] [address] Dr. Tisha Carr CAST NONE SEEN Normal NONE SEEN [facility] Comment on above: Performed By: #### U RCX #### [facility] [address] [place] [address] Dr. Tisha Carr Crystals LM Nom (Urine sed) NONE SEEN Normal NONE SEEN [facility] Comment on above: Performed By: #### U RCX #### [facility] [address] [address] [address] Tisha Carr Epithelial cells LM Ql (Urine sed) MANY Abnormal NONE SEEN /RARE [facility] Comment on above: Performed By: #### U RCX #### [facility] [address] [address] [address] Tisha Carr MUCOUS LARGE Abnormal NONE SEEN [facility] Comment on above: Performed By: #### U RCX #### [facility] [address] [address] [address] Tisha Carr RBC NONE SEEN Abnormal 0-2 [facility] Comment on above: Performed By: #### U RCX #### [facility] [address] [address] [address] Tisha Carr WBC 5-10 Abnormal NONE SEEN [facility] Comment on above: Performed By: #### U RCX #### [facility] [address] [address] [address] Tisha Carr Vital Signs Date Time Vital Sign Value Performing Clinician Faci lity 03-17-2025 14:38-0400 Body height 162.6 cm [facility] 03-17-2025 14:38-0400 Body mass index (BMI) [Ratio] 35.06 kg/m2 [facility] 03-17-2025 14:38-0400 Body weight 92.65 kg [facility] 03-17-2025 14:38-0400 Diastolic blood pressure 80 mm[Hg] [facility] 03-17-2025 14:38-0400 Systolic blood pressure 114 mm[Hg] [facility] 09-22-2023 16:01-0500 Body weight 89.09 kg Belkis Jessica DO Work Phone: [facility] 09-22-2023 16:01-0500 Diastolic blood pressure 70 mm[Hg] Belkis Jessica DO Work Phone: [facility] 09-22-2023 16:01-0500 Systolic blood pressure 120 mm[Hg] Belksi Lopez DO Work Phone: [facility] Encounters Encounter Date Encounter Type Care Provider Facility Start: 03-17-2025 End: 03-17-2025 Office outpatient visit 5 minutes Jessica Nurse [facility] Comment on above: GA: 10w5d Start: 03-17-2025 End: 03-17-2025 ambulatory Not Available Start: 09-22-2023 End: 09-22-2023 Patient [...] Work Phone: [facility] Unsolicited Start: 10-30-2022 End: 10-31-2022 ambulatory ARIANE HEDRICK Facility:[facility] Start: 06-21-2022 End: 06-21-2022 ambulatory ARIANE HEDRICK Facility:[facility] Start: 04-08-2022 End: 04-08-[address] BELKIS LOPEZ . Facility:[facility] Start: 01-06-2022 End: 01-06-2022 ambulatory LITA GARCIA . Facility:[facility] Procedures Date Procedure Procedure Detail Performing Clinician Start: 03-17-2025 Urnls dip stick/tabl et rgnt non-auto w/o micrscp Belkis Jessica DO Work Phone: Start: 09-22-2023 Urnls dip stick/tabl et rgnt non-auto w/o micrscp Belkis Yateso DO Work Phone: Start: 09-22-2023 IGP,APTIMA HPV,AGE GDLN Belkis Jessica DO Work Phone: Plan of Treatment Date Care Activity Detail Author Start: 04-25-2025 Influenza vaccination Influenza Vacc ine (#1) [facility] Start: 04-13-2025 End: 04-13-2025 Patient encounter procedure 04/13/2025 2:50 PM EDT Routine [facility] [address] [place] [address] Belkis Lopez, DO [address] [place] [address] [place] [address] [facility] Start: 03-17-2025 End: 03-17-2026 ABO/Rh ABO/Rh Lab Routine Missed menses , unspecified gestational age ([facility]) Expected: 03/17/2025 (Approximate), Expires: 03/17/2026 [facility] Comment on above: Expected: 03/17/2025 (Approximate), Expires: 03/17/2026 Start: 03-17-2025 End: 03-17-2026 Blood type and Indirect antibody screen panel - Blood Type and screen Lab Routine Missed menses , unspecified gestational age ([facility]) Expected: 03/17/2025 (Approximate), Expires: 03/17/2026 [facility] Work Phone: Comment on above: Expected: 03/17/2025 (Approximate), Expires: 03/17/2026 Start: 03-17-2025 End: 03-17-2026 Drugs of abuse panel - Urine by Screen method Rapid drug screen, urine Lab Routine , unspecified gestational age ([facility]) Encounter for supervision of normal first in first trimester ([facility]) Expected: 03/17/2025 (Approximate), Expires: 03/17/2026 [facility] Comment on above: Expected: 03/17/2025 (Approximate), Expires: 03/17/2026 Start: 10-20-2023 End: 10-20-2023 Patient encounter procedure 10/20/2023 3:10 PM EST Routine [facility] [address] [place] [id number] Belkis Lopez, DO [address] [place] [address] [facility] Start: 09-22-2023 End: 09-22-2024 Alpha fetoprotein, maternal Alpha fetoprotein, maternal Lab Routine Second trimester Need for maternal serum alpha-protein (MSAFP) screening Expected: 09/22/2023 (Approximate), Expires: 09/22/2024 [facility] Comment on above: Expected: 09/22/2023 (Approximate), Expires: 09/22/2024 Start: 09-22-2023 End: 09-22-2024 US for US OB ANATOMY SINGLE W US OB CERVICAL LENGTH Imaging Routine Screening, , for anatomic survey Expected: 09/22/2023 (Approximate), Expires: 09/22/2024 [facility] Comment on above: Expected: 09/22/2023 (Approximate), Expires: 09/22/2024 Bacteria identified in Urine by Culture Urine culture Microbiology Routine Missed menses Ordered: 03/17/2025 [facility] Comment on above: Ordered: 03/17/2025 CBC W Auto Different ial panel - Blood CBC and differential Lab Routine Missed menses , unspecified gestational age ([facility]) Ordered: 03/17/2025 [facility] Comment on above: Ordered: 03/17/2025 CHLAMYDIA TRACHOMATI S (GENITO/STI) CHLAMYDIA TRACHOMATIS (GENITO/STI) Lab Routine Exposure to STD Ordered: 09/22/2023 [facility] Comment on above: Ordered: 09/22/2023 Cytology Cervical or vaginal smear or scraping study Pap Smear Pathology and Cytology Routine Well woman exam with routine gynecological exam Ordered: 09/22/2023 [facility] Comment on above: Ordered: 09/22/2023 Hemoglobin A1c/Hemoglobin.total in Blood Hemoglobin A1c Lab Routine Missed menses , unspecified gestational age ([facility]) Ordered: 03/17/2025 [facility] Comment on above: Ordered: 03/17/2025 Hepatitis B virus surface Ag [Presence] in Serum or Plasma by Immunoassay Hepatitis B surface antigen Lab Routine Missed menses , unspecified gestational age ([facility]) Ordered: 03/17/2025 [facility] Comment on above: Ordered: 03/17/2025 Hepatitis C virus Ab [Presence] in Serum or Plasma by Immunoassay Hepatitis C antibody Lab Routine Missed menses , unspecified gestational age ([facility]) Ordered: 03/17/2025 [facility] Comment on above: Ordered: 03/17/2025 HIV-1/HIV-2 antigen/antibody combination immunoassay HIV-1 and HIV-2 antibodies Lab Routine Missed menses , unspecified gestational age ([facility]) Ordered: 03/17/2025 [facility] Comment on above: Ordered: 03/17/2025 Neisseria gonorrhoea e DNA [Presence] in Unspecified specimen by OC with probe detection Neisseria gonorrhea DNA probe, direct Lab Routine Exposure to STD Ordered: 09/22/2023 [facility] Comment on above: Ordered: 09/22/2023 Reagin Ab [Presence] in Serum by RPR RPR Lab Routine Missed menses , unspecified gestational age ([facility]) Ordered: 03/17/2025 [facility] Comment on above: Ordered: 03/17/2025 Rubella antibody, IgG Rubella an tibody, IgG Lab Routine Missed menses , unspecified gestational age ([facility]) Ordered: 03/17/2025 [facility] Comment on above: Ordered: 03/17/2025 SURESWAB(R) ADVANCED VAGINITIS PLUS, TMA SURESWAB(R) ADVANCED VAGINITIS PLUS, TMA Pathology and Cytology Routine Exposure to STD Ordered: 09/22/2023 [facility] Work Phone: Comment on above: Ordered: 09/22/2023 Immunizations Immunization Date Immunization Notes Care Provider Carrie diaz 07-14-2018 influenza virus vacc ine, unspecified formulation Jessica Osborn [facility] Payers Date Payer Category Payer Medicaid [employer] [place] [employer] [id number] 2021-Present [address] [place] [address] [id number] 2021 Medicaid (Managed Care) [employer] [id number] 2000 Unknown [id number] 2000 Unknown [id number] 2000 Unknown [id number] 2000 Unknown [id number] 2000 Unknown [id number] 2000 Unknown [id number] 1959 Unknown [id number] Social History Date Type Detail Facility Tobacco smoking stat [facility] Tobacco smoking consumption unknown [facility] Start: 05-22-2023 [facility] Start: 2000 Sex Assigned At Female [facility] Start: 07-03-2023 Gender identity Identifies as female gender (finding) [facility] Start: 05-06-2024 Sexual orientation Not on file [facility] Start: 01-27-2024 Tobacco smoking stat [facility] Never smoked tobacco [facility] Start: 01-27-2024 Tobacco use and exposure Smoke less tobacco non-user [facility] Start: 03-17-2025 Alcoholic beverage intake Ex-drinker (finding) [facility] Start: 05-06-2024 History of Social function [facility] Start: 01-27-2024 Tobacco Comment None [facility] Medical Equipment Procedure Code Equipment Code Equipment Origin al Text Equipment Identifier Dates Start: 11-30-2023 End: 03-17-2025 History of Present illness Narrative 03-17-2025 Brook ChicasKYLAH jacob - 03/17/2025 2:00 PM EDT Note Date & Type Note Facility 03-17-2025 History of Presen t illness Narrative Reason for Appointment: Patient ID: Meka Cano is a 25 y.o. female who presents for Amenorrhea Patient presents today for a Nurse OB Intake appointment. Patient is 10w5d with a Estimated Date of Delivery: 10/08/25 OB History Para Term AB Living 3 2 2 2 SAB IAB Ectopic Multiple Live Births 2 # Outcome Date GA Lbr Jace/2nd Weight Sex Type Anes PTL Lv 3 Current 2 Term 02/05/24 39w0d 8 lb 2 oz M Vag-Spont EPI N ETELVINA Complications: Gestational diabetes ([facility]) 1 Term 09/15/20 39w0d 7 lb 13 oz M Vag-Spont EPI N ETELVINA Current Medications: has a current medication list which includes the following prescription(s): [id number]. Medical History: Active Ambulatory Problems Diagnosis Date Noted Gestational diabetes mellitus (GDM), antepartum ([facility]) 11/17/2023 Resolved Ambulatory Problems Diagnosis Date Noted No Resolved Ambulatory Problems Past Medical History: Diagnosis Date Asthma ([facility]) Family History Problem Relation Name Age of Onset Asthma Mother Nicole Asthma Father Efe Social History Tobacco Use Smoking status: Never Smokeless tobacco: Never Tobacco comments: None Substance Use Topics Alcohol use: Not Currently Drug use: Never No past surgical history on file. Allergies Allergen Reactions Motrin [Ibuprofen] Unknown Vitals: Estimated body mass index is 35.06 kg/m as calculated from the following: Height as of this encounter: 5' 4 . Weight as of this encounter: 204 lb 4 oz. BP: 114/80 Patient's last menstrual period was 01/01/2025 (exact date). Assessment/Plan Diagnoses and all orders for this visit: Missed menses - Type and screen; Future - ABO/Rh; Future - CBC and differential - Hemoglobin A1c - RPR - Rubella antibody, IgG - Hepatitis B surface antigen - Hepatitis C antibody - HIV-1 and HIV-2 antibodies - Urine culture - POCT , urine manually resulted - POCT urinalysis dipstick manually resulted , unspecified gestational age ([facility]) - Type and screen; Future - ABO/Rh; Future - CBC and differential - Hemoglobin A1c - RPR - Rubella antibody, IgG - Hepatitis B surface antigen - Hepatitis C antibody - HIV-1 and HIV-2 antibodies - Rapid drug screen, urine; Future Encounter for supervision of normal first in first trimester ([facility]) - Rapid drug screen, urine; Future Nurse Note: OB Intake: Patient presents today for first OB visit. Patients history has been reviewed in great detail including any potential risks. Patient signed consent forms and patient desires testing in both trimesters. Patient currently has no complaints and has been advised to drink 6-8 glasses of water a day, eat no raw or undercooked meat, and stay away from formerly [facility]. Patient has also been advised to not change litter boxes and eat 6 small meals a day. Patient has been consulted regarding the do's and don'ts of . Patient was given labs and all questions and concerns were answered. Follow Up: Patient is to have labs drawn at directed and return to office for initial OB appointment with provider. Patient may call office as needed with any concerns or questions. Nurse Visit Completed by: Brook Morgan MA documented in this encounter [facility] History of Present illness Narrative 09-22-2023 Nora Riggs LPN - 09/22/2023 3:20 PM EST Note Date & Type Note Facility 09-22-2023 History of Presen t illness Narrative Reason for Appointment: Patient ID: Meka Cano is a 23 y.o. female who [...] Problems Past Medical History: Diagnosis Date Asthma ([facility]) No family history on file. Social History [...] nursing note reviewed. Exam conducted with a technical product manager present. Vitals: There is no height [...] Heartburn documented in this encounter [facility] Evaluation note Note Date & Type Note Facility Evaluation note Diagnosis Missed menses , unspecified gestational age ([facility]) Encounter for supervision of normal first in first trimester ([facility]) documented in this encounter [facility] Summary Purpose Family History No Family History Records FoundNo Family History Records Found Advance Directives No Advanced Directives Records FoundNo Advanced Directives Records Found Additional Source Comments INFORMATION SOURCE (unrecogn ized section and content) DATE CREATED AUTHOR 11/07/2022 [facility] DATE CREATED AUTHOR AUTHOR'S ORGANIZ ATION 03/19/2025 [facility] EPIC Reason for Visit (unrecogniz ed section and content) Reason Comments Routine Visit Gynecologic Exam Reason Comments Amenorrhea Care Teams (unrecognized sec tion and content) Manager Epic Relationship Specialty Start Date End Date Patrizia Carlson PA [address] [place] [address] [place] [id number] [facility] 08/25/24 FOR RECORDS PERTAINING TO PATIENTS WHO ARE [...] THE PRIMARY CLINICAL RECORDS. [facility] [employer] [facility]. provides no warranty or guarantee of the accuracy or completeness of information in this document.
[2025-03-19 12:09] LABS: Hematocrit 39.0 % (36.0-48.0); Hemoglobin 14.0 g/dL (12.0-16.0); Immature Granulocytes Abs Auto 0.03 10^3/uL (0.00-0.03); Immature Granulocytes Pct Auto 0.4 % (0.0-0.5); Lymphocytes Absolute Auto 1.7 10^3/uL (1.2-3.8); Mean Corpuscular HGB Conc 35.9 g/dL (29.9-35.2); Mean Corpuscular Hemoglobin 30.7 pg (26.7-34.0); Mean Corpuscular Volume 85.5 fL (81.0-99.0); Platelet Count 220 10^3/uL (150-450); Red Blood Count 4.56 10^6/uL (4.20-5.40); White Blood Count 7.9 10^3/uL (4.0-11.0)
[2025-03-19 12:23] LABS: Cannabinoid Screen Urine POSITIVE (NEGATIVE); Methamphetamines Screen Urine NEGATIVE (NEGATIVE); Tricyclic Antidepressant Urine NEGATIVE (NEGATIVE)
[2025-03-21 08:07] LABS: Rubella Antibodies, IgG 5.79 index (Immune >0.99)
[2025-03-22 12:08] LABS: Rapid Plasma Reagin, Quant Non Reactive titer (NonRea<1:1)
[2025-03-24 14:10] LABS: Carboxy THC Conf, MS, UR 267 ng/mL (Cutoff=10)
== END 2025-03-19 11:23 | disposition home or self-care (01) ==
PROVIDERS: PCP Nurse Practitioner Family; Visit Provider Obstetrics & Gynecology
DX: Z34.01 Encounter for supervision of normal first pregnancy, first trimester (principal); N92.6 Irregular menstruation, unspecified
CPT/HCPCS: 36415; 80307; 80349; 83036; 85025; 86592; 86762; 86803; 86850; 86900; 86901; 87086; 87340; 87389